=== PATIENT | female | born 1955 | race Caucasian/White ===

== ENCOUNTER → 2021-03-04 08:23 | Outpatient (CLI) | payer MEDICARE, SELFPAY ==
--- NOTE | ~2021-03-04 | MM_ITS ---
EXAMINATION: MM screening nathaly BI w monika HISTORY: Screening TECHNIQUE: Craniocaudal and mediolateral oblique 3-D tomosynthesis images were obtained and synthetic 2-D images were generated. CAD analysis was submitted and interpreted. COMPARISON: 11/07/2012 BREAST PARENCHYMAL COMPOSITION: There are scattered areas of fibroglandular density. FINDINGS: There is no evidence of suspicious mass, calcification, or architectural distortion to sugg est malignancy in either breast. There has been no suspicious interval change. IMPRESSION: 1. No mammographic evidence of malignancy. 2. Recommend routine screening mammography in one year. BI-RADS Category 1: Negative Reviewed, dictated and finalized at location A.
--- NOTE | ~2021-03-04 | DEXA_ITS ---
Bone Density Report Name: Stella Carroll Age: 65 Sex: Female Ethnicity: White Date of : 1955 Indication: postmenopausal; screening for osteoporosis; parental hip fracture; height loss; Referring Provider: José Hamlin Study: Bone densitometry was performed. Exam Date: March 04, 2021 Accession number: [id number] Bone Density: Region BMD T-score Z-score Classification AP Spine (L1-L4) 1.291 2.2 4.2 Normal Femoral Neck (Left) 0.671 -1.6 0.1 Osteopenia Total Hip (Left) 0.923 -0.2 1.2 Normal Femoral Neck (Right) 0.790 -0.5 1.1 Normal Total Hip (Right) 0.920 -0.2 1.2 Normal Total Hip Mean 0.922 -0.2 1.2 Normal World Health Organization criteria for BMD impression classify patients as: Normal (T-score at or above -1.0), Osteopenia (T-score between -1.0 and -2.5), or Osteoporosis (T-score at or below -2.5). 10-year Fracture Risk(1): Major Osteoporotic Fracture 16% Hip Fracture 1.7% Reported Risk Factors: [place] (), Neck BMD=0.671, BMI=34.7, parental fracture (1) FRAX(R) Version 3.08. Fracture probability calculated for an untreated patient. Fracture probability may be lower if the patient has received treatment. Clinical Information Provided by Patient: Parent has had a hip fracture Patient maximum height was 59.8 Menopause Age: 52 Onset of menses at age 9 Number of children 2 Impression: The patient has low bone mass, based on the Left Femoral Neck T-score. The patient has an estimated ten-year risk of hip fracture of 1.7% and an estimated ten-year risk of major fracture of 16%, based on the WHO FRAX algorithm. The patient has risk factors, including: parental hip fracture. Discussion: BONE DENSITY IS LOW AT ONE OR MORE SKELETAL SITES. This patient's lowest T-score is low at one or more skeletal sites. It meets the World Health Organization's (WHO) criteria for ?low bone mass? (T-score between -1.0 and -2.5). The patient's 10-year risk of fracture as calculated by FRAX is less than the threshold where pharmacological therapy is recommended by the National Osteoporosis Foundation (NOF). However, all treatment decisions require clinical judgment and consideration of individual patient factors, including patient preferences, comorbidities, previous drug use, risk factors not captured in the FRAX model (e.g., frailty, falls, vitamin D deficiency, increased bone turnover, interval significant decline in bone density) and possible under or overestimation of fracture risk by FRAX. The patient should follow a healthful lifestyle (good nutrition with adequate calcium and vitamin D, and appropriate weight-bearing exercise). Follow-Up: Consider repeating this study in 2 to 3 years to reassess this patient's status, or sooner if there is some new clinical indication. Reported by:
== END ==
PROVIDERS: PCP Family Medicine; Visit Provider Physician Assistant Medical
DX: Z12.31 Encounter for screening mammogram for malignant neoplasm of breast (principal); Z78.0 Asymptomatic menopausal state; M85.852 Other specified disorders of bone density and structure, left thigh
CPT/HCPCS: 77063; 77067; 77080

== ENCOUNTER 2022-11-14 14:40 | Inpatient (IN) | payer MEDICARE, SELFPAY ==
[2022-11-14] VITALS (36 sets, daily range): BP systolic 75–131; BP diastolic 48–100; PULSE 68–166; RESP 13–25; TEMP 36.6–36.7; O2SAT 94–100; BMI 34.6
--- NOTE | ~2022-11-14 | XR_ITS ---
EXAMINATION: XR chest 1V portable DATE: 11/16/2022 13:56 INDICATION: Shortness of breath. TECHNIQUE: A single frontal view of the chest was obtained. COMPARISON: Chest single view 11/15/2022 FINDINGS: There are airspace opacities in the lower lung zones. Eros B-lines are noted, consistent with mild pulmonary edema. There are small pleural effusions. No pneumothorax. The heart size is norm al. IMPRESSION: 1. Stable airspace opacities in the lower lung zones, consistent with atelectasis versus pneumonia. 2. Mild pulmonary edema. 3. Stable small pleural effusions. Reviewed, dictated and finalized at location A. IMPRESSION: 1. Stable airspace opacities in the lower lung zones, consistent with atelectas is versus pneumonia. 2. Mild pulmonary edema. 3. Stable small pleural effusions.
--- NOTE | ~2022-11-14 | XR_ITS ---
EXAMINATION: XR chest 1V portable INDICATION: Wheezing and shortness of breath TECHNIQUE: Portable AP chest at 2225 hours COMPARISON: 11/14/2022 FINDINGS: There are developing airspace opacities in the mid and lower lung zones. Small pleural effu sions are present. The heart size is normal. There is no pneumothorax. IMPRESSION: 1. Developing airspace opacities of the mid and lower lung zones, consistent with atelectasis versus pneumonia versus pulmonary edema. 2. Small pleural effusions. Reviewed, dictated and finalized at location F. IMPRESSION: 1. Developing airspace opacities of the mid and lower lung zones, consistent wi th atelectasis versus pneumonia versus pulmonary edema. 2. Small pleural effusions.
--- NOTE | ~2022-11-14 | XR_ITS ---
EXAMINATION: XR chest 1V portable 11/14/2022 15:30 INDICATION: Heart racing. Abnormal EKG. PROCEDURE: AP portable chest COMPARISON: No prior studies for comparison. FINDINGS: The lungs are clear. The cardiomediastinal silhouette is within normal limits. There are no pleural effusions. There is no pneumothorax suspected. IMPRESSION: 1: NO ACUTE CARDIOPULMONARY DISEASE. Reviewed, dictated and finalized at location B.
--- NOTE | 2022-11-14 14:46 | ECG_ITS ---
Measurements Intervals [place] Rate: 164 P: 86 MI: 100 QRS: 34 QRSD: 118 T: -50 QT: 285 QTc: 471 Interpretive Statements SUPRAVENTRICULAR TACHYCARDIA POSSIBLY ATRIAL FLUTTER BASELINE ARTIFACT LOW QRS VOLTAGE IN PRECORDIAL LEADS MODERATE INTRAVENTRICULAR CONDUCTION DELAY NONSPECIFIC ST ABNORMALITY ABNORMAL ECG NO PREVIOUS ECG AVAILABLE FOR COMPARISON Electronically Signed On 11-14-2022 18:25:56 CDT by Kurtis Abdalla M.D.
[2022-11-14] MEDS: SODIUM CHLORIDE 0.9% IV 1,000 ML 999 ML IV CONT (15:20)
[2022-11-14 15:32] LABS: Basophils Absolute Auto 0.1 K/mm3 (0.0-0.1); Basophils Percent Auto 1.2 % (0.2-1.2); Eosinophils Absolute Auto 0.1 K/mm3 (0-0.3); Eosinophils Percent Auto 0.7 % (0-4.4); Hematocrit 40.1 % (37.0-47.0); Hemoglobin 13.7 g/dL (12.0-15.0); Immature Granulocyte Absolute 0.03 K/mm3 (0.00-0.031); Immature Granulocyte Percent A 0.3 % (0-0.5); Lymphocytes Absolute Auto 2.82 K/mm3 (0.9-3.2); Lymphocytes Percent Auto 27.4 % (18.3-44.2); Mean Corpuscular HGB Conc 34.2 g/dl (32-36); Mean Corpuscular Hemoglobin 31.9 pg (26-34); Mean Corpuscular Volume 93.3 fl (80-100); Mean Platelet Volume 11.8 fl (7.4-10.4); Monocytes Absolute Auto 0.8 K/mm3 (0.1-0.6); Monocytes Percent Auto 7.5 % (2.6-8.5); Neutrophils Absolute Auto 6.5 K/mm3 (1.3-6.7); Neutrophils Percent Auto 62.9 % (45.5-73.1); Platelet Count Result 410 k/mm3 (150-375); Red Cell Distribution Width 14.1 % (11.5-14.5); White Blood Count 10.3 K/mm3 (4.5-10.0)
[2022-11-14 15:42] LABS: Prothrombin Time 12.5 Seconds (11.1-14.7)
[2022-11-14 15:46] LABS: Lactic Acid Reflex 1.3 mmol/L (0.7-2.0)
--- NOTE | 2022-11-14 15:47 | ED.ARRPALP ---
HPI - Arrhythmia/Palpitations General Chief Complaint: Arrhythmia/Palpitations Stated Complaint: ahrrythmia Time Seen by Provider: 11/14/22 14:58 Source: patient, RN notes reviewed and old records reviewed Mode of arrival: ambulatory Limitations: no limitations History of Present Illness HPI narrative: This is a 67 year old female who presents for evaluation of tachycardia. Patient was diagnosed with shingles to her left flank 2 weeks ago. She was started on medrol dose pack and famciclovir. She went for follow appointment today because she is having worsening pain from her shingles. Her rash is improving. She was found to be in atrial flutter with heart rate 160s in clinic so she was referred to ER. Patient denies chest pain, sob, dizziness, or heart racing recently. She reports over the past few years she has intermittent episodes of heart racing that resolve after a few minutes. Related Data Home Medications Medication Instructions Recorded Confirmed cholecalciferol (vitamin D3) 125 125 mcg PO DAILY 10/24/22 11/14/22 mcg (5,000 unit) capsule hydrochlorothiazide 25 mg tablet 25 mg PO DAILY 11/14/22 11/14/22 simvastatin 80 mg tablet 80 mg PO DAILY 11/14/22 11/14/22 Allergies Allergy/AdvReac Type Severity Reaction Status Date / Time No Known Allergies Allergy Verified 11/14/22 13:59 Review of Systems Constitutional: Constitutional: Denies weakness Cardiovascular: Cardiovascular: Denies syncope, Denies rapid heart rate, Denies irregular heart rhythm, Denies leg edema and Denies dyspnea Respiratory: Respiratory: Denies chest congestion, Denies hemoptysis, Denies excessive phlegm production and Denies dyspnea Gastrointestinal: Gastrointestinal: Denies abdominal pain, Denies hematochezia, Denies diarrhea and Denies vomiting Genitourinary: Genitourinary: Denies hematuria and Denies dysuria Musculoskeletal: Musculoskeletal: Denies joint swelling, Denies loss of height and Denies muscle weakness Integumentary/Breasts: Skin/Breast: Reports pruritus and Reports rash Neurologic: Denies syncope, Denies focal weakness and Denies weakness PMFSH Past Medical History Medical History Benign essential hypertension Breast cancer screening by mammogram Herpes zoster Mixed hyperlipidemia Obesity (BMI 30.0-34.9) Surgical History Surgical History H/O section X2 H/O tubal ligation History of cochlear implant Family History Family History Sibling Patient's sister is Mother Patient's mother is Other Family history of elevated blood lipids Family history of glaucoma Hypertension Social History Social History Social History: The patient is and lives with her . She has 2 children. She is retired from [employer]. She is a lifelong nonsmoker. She does not use any alcohol marijuana or illicit drugs. Code status full code Smoking status: Never smoker Alcohol intake: never Substance use: never Lack of Transportation: No Lack of Food: Never True Current Housing: I Have Housing Concerned About Future Housing: No Difficulty Paying Gas/Electric Bills: No Difficulty Paying for Meds: No Currently Unemployed: No Education: Decline to Answer Difficulty w/ Childcare or Family Care: No Spiritual care concerns: No Exam Narrative: GENERAL: Well-appearing, well-nourished, and in no acute distress. HEAD: Normocephalic, atraumatic EYES: PERRLA and EOMI, conjunctiva clear without discharge THROAT:Mucous membranes moist, Oropharynx normal without erythema, exudate, peritonsillar swelling or fluctuance NECK: Supple, without lymphadenopathy or mass RESPIRATORY: No respiratory distress, Airway patent, Respi
[2022-11-14 15:52] LABS: Alanine Aminotransferase 36 U/L (6-35); Albumin Level 4.2 g/dL (3.5-5.1); Alkaline Phosphatase 109 U/L (38-126); Aspartate Amino Transferase 33 U/L (14-36); Bilirubin,Total 0.8 mg/dL (0.2-1.3); Blood Urea Nitrogen 20 mg/dL (7-17); Calcium 9.8 mg/dL (8.4-10.2); Carbon Dioxide > 40 mmol/L (22-30); Chloride 90 mmol/L (98-107); Estimated CRCL calculation 51 ml/min; Estimated Glomerular Filt Rate > 60; Glucose 134 mg/dL (65-110); Magnesium 1.8 mg/dL (1.6-2.3); Sodium 138 mmol/L (137-145)
[2022-11-14 15:57] LABS: Troponin I < 0.012 ng/mL (0.000-0.034)
[2022-11-14] MEDS: dilTIAZem HCl INJ 25 MG/5 ML VIAL 10 MG IV PUSH (16:13)
[2022-11-14] MEDS: POTASSIUM CHLORIDE 20 MEQ TABLET 40 MEQ PO (16:14)
[2022-11-14] MEDS: MAGNESIUM SULF 2 GM/WATER 50ML 2 GM/50 ML BAG IVPB (16:23)
[2022-11-14] MEDS: dilTIAZem 100 MG/100 ML 100 MG/100 ML BAG 10 MG IV CONT (16:43)
[2022-11-14] MEDS: dilTIAZem HCl INJ 25 MG/5 ML VIAL IV PUSH (17:28)
[2022-11-14] MEDS: SODIUM CHLORIDE 0.9% IV 500 ML 999 ML IV CONT (17:41)
--- NOTE | 2022-11-14 19:09 | PC.NURSE ---
Pt arrives after having a high rate today at an Urgent Care. Pt states that she has been dealing with shingles and pain in across her abdomen and that is why she went to the Urgent Care. States that she was told she had a high heart rate and an abnormal EKG. Pt denied any headache. Pt denied feeling her heart racing or chest pain. Denies feeling SOB.
[2022-11-14] MEDS: KCL 20 MEQ/SW 100 ML 100 ML 50 MEQ IVPB (19:22)
--- NOTE | 2022-11-14 19:36 | PC.NURSE ---
GLADYS gave report to Carol Ann at 193.
--- NOTE | 2022-11-14 20:28 | ADMGEN ---
This patient, Stella Carroll, was admitted to IMU Room 211-01 at 2037. Patient/family oriented to hospital policies and general routines including ID bracelet, bed and alarms, visiting hours, pain management, procedures, bathroom and other care routines, personal items, smoking policy, room service/diet, and visiting hours. Information on how to activate the Rapid Response Team has been discussed. Patient/Family are encouraged to report perceived risks to care and to ask questions if they do not understand what they are told or what they should do.
--- NOTE | 2022-11-14 20:52 | PM.IMHP ---
H&P: HPI History of Present Illness Date/Time: 11/14/22 20:52 Chief Complaint: As arrhythmias/palpitations Narrative: This is a 67-year-old female patient who recently was diagnosed with shingles 2 weeks ago and was going to her primary care doctor evaluated for her shingles to see if they are getting worse or if they are clearing up. The patient had no other complaints. The patient was found to have tachycardia with heart rate in the 160s. The patient was found to be and supraventricular tachycardia possibly atrial flutter. The patient was then sent to the emergency room. The patient was given IV fluids and Cardizem IV. Her white count is 10.3. Platelets 410. Troponin is found to be nonreactive. Her TSH is within normal limits. Her potassium was found to be 3.0 and she was replaced with potassium supplement. The patient was also supplemented with magnesium. Patient's blood pressure is anywhere from 126/100 to 122/89. Patient stated she did not have any chest pain or palpitations. The patient has a cochlear implant and is hearing impaired. She does read lips however. She denies any chest pain or shortness of breath.. She denies any fever chills. She only complains of some mild headache and is requesting Tylenol. Cardiology has been consulted. Chest x-ray was read as no acute cardiopulmonary disease. The patient is being admitted to inpatient status on the date of service of 11/14/2022. Review of Systems Review of Systems: All systems reviewed & are unremarkable except as noted in HPI and below Constitutional: Constitutional: Reports as per HPI and Reports no additional constitutional complaints Eyes: Eyes: Reports as per HPI and Reports no additional eye complaints ENT: Reports system reviewed and no additional complaints, except as documented and Reports Normal hearing present Cardiovascular: Cardiovascular: Reports no additional cardiovascular complaints Respiratory: Respiratory: Reports no additional respiratory complaints and Reports no additional respiratory complaints Gastrointestinal: Gastrointestinal: Reports as per HPI and Reports no additional gastrointestinal complaints Musculoskeletal: Musculoskeletal: Reports no additional musculoskeletal complaints Integumentary/Breasts: Skin/Breast: Reports system reviewed and no additional complaints, except as docu and Reports as per HPI Neurologic: Reports system reviewed and no additional complaints, except as documented, Reports as per HPI and Reports Normal hearing present Psychiatric: Psychiatric: Reports no additional psychiatric complaints and Reports as per HPI Endocrine: Endocrine: Reports no additional endocrine complaints Hematologic/Lymphatic: Hematologic/Lymphatic: Reports no additional hematologic/lymphatic complaints Allergic/Immunologic: Allergic/Immunologic: Reports no additional allergic/immunologic complaints [facility] Past Medical History Medical History (Updated 11/14/22 @ 22:40 by Katie Sena NP) Benign essential hypertension Breast cancer screening by mammogram Herpes zoster Mixed hyperlipidemia Obesity (BMI 30.0-34.9) Surgical History Surgical History (Updated 11/14/22 @ 22:31 by Katie Sena NP) H/O section X2 H/O tubal ligation History of cochlear implant Family History Family History Sibling Patient's sister is Mother Patient's mother is Other Family history of elevated blood lipids Family history of glaucoma Hypertension Social History Social History (Updated 11/14/22 @ 22:32 by Katie Sena NP) Social History: The patient is and lives with her . She has 2 children. She is retired from [employer]. She is a lifelong nonsmoker. She does not use any alcohol marijuana or illicit drugs. Code status full code Smoking status: Never smoker Alcohol intake: never Substance u
[2022-11-14] MEDS: ENOXAPARIN 80 MG/0.8 ML SYRINGE 70 MG SUB-Q (21:37)
[2022-11-14] MEDS: dilTIAZem 100 MG/100 ML 100 MG/100 ML BAG 15 MG IV CONT (21:38)
[2022-11-14] MEDS: ACETAMINOPHEN 325 MG TABLET 650 MG PO (21:38)
[2022-11-14] MEDS: DIGOXIN INJ 250 MCG/ML 2 ML AMP (*BKC) IV PUSH (22:35)
[2022-11-15] VITALS (21 sets, daily range): BP systolic 106–169; BP diastolic 57–116; PULSE 66–141; RESP 16–20; TEMP 36.3–37; O2SAT 90–100
--- NOTE | 2022-11-15 | ECHO_ITS ---
Patient Info Name: Stella Carroll Age: 67 years : 1955 Gender: Female Ht: 60 in Wt: 177 lbs BSA: 1.88 m2 HR: 67 bpm BP: 120 / 60 mmHg Heart Rhythm: Sinus Rhythm Exam Date: 11/15/2022 9:38 AM Exam Location: [facility] Patient Status: Inpatient Admit Date: 11/14/2022 Staff Ordering Physician: Katie Sena NP Drywall Mechanic: Patrice Benitez RDCS, RT Attending Provider: Maria Ines Hogue MD Referring Physician: Nathen SEVERINO; Exam Type: CA echo doppler color flow Study Info Indications I48.1 - Persistent atrial fibrillation Complete two-dimensional, color flow and Doppler transthoracic echocardiogram is performed. Strain analysis performed. Summary 1. Complete two-dimensional, color flow and Doppler transthoracic echocardiogram is performed. 2. Left ventricular chamber dimension is normal. 3. Left ventricular systolic function is normal, estimated at 60-65%. 4. There is mildly increased left ventricular wall thickness. 5. Right ventricular systolic function is normal. 6. Left atrial chamber dimension is mildly enlarged. 7. The mitral valve annulus is mildly calcified. 8. There is moderate to severe mitral valve regurgitation. 9. There is mild tricuspid valve regurgitation. 10. There is mild-moderate aortic atherosclerosis. Left Ventricle Left ventricular chamber dimension is normal. Left ventricular systolic function is normal, estimated at 60-65%. There is mildly increased left ventricular wall thickness. Global longitudinal strain is abnormal at -13 %. Right Ventricle Right ventricular chamber dimension is normal. Right ventricular systolic function is normal. Left Atria Left atrial chamber dimension is mildly enlarged. Right Atria Right atrial chamber dimension is normal. Aortic Valve The aortic valve is not well visualized. There is no aortic valve stenosis. There is no aortic valve regurgitation. There is mild aortic valve calcification. Pulmonic Valve The pulmonic valve is not well visualized. Mitral Valve There is moderate to severe mitral valve regurgitation. The mitral valve annulus is mildly calcified. Tricuspid Valve There is mild tricuspid valve regurgitation. Pericardium/Pleural There is no pericardial effusion. Inferior Vena Cava Normal inferior vena cava with <50% collapse upon inspiration consistent with elevated right atrial pressure, 8 mmHg. Aorta The aortic root size at the sinus of Valsalva is normal. There is mild-moderate aortic atherosclerosis. Left Ventricular Outflow Tract Name Value Normal LVOT 2D LVOT Diameter 1.9 cm LVOT Doppler LVOT Peak Gradient 4 mmHg LVOT Mean Gradient 2 mmHg LVOT VTI 18 cm LVOT VTI/AV VTI Ratio 0.7 LVOT Stroke Volume 51 ml LVOT CO 3.2 l/min LVOT CI 1.7 l/min/m2 Mitral Valve Name
[2022-11-15] MEDS: SODIUM CHLORIDE 0.9% IV 500 ML IV CONT (01:43)
[2022-11-15] MEDS: dilTIAZem 100 MG/100 ML 100 MG/100 ML BAG 15 MG IV CONT ×2 (05:24→12:07)
[2022-11-15 05:40] LABS: Basophils Absolute Auto 0.1 K/mm3 (0.0-0.1); Basophils Percent Auto 1.1 % (0.2-1.2); Eosinophils Absolute Auto 0.2 K/mm3 (0-0.3); Eosinophils Percent Auto 1.9 % (0-4.4); Hematocrit 35.1 % (37.0-47.0); Hemoglobin 11.8 g/dL (12.0-15.0); Immature Granulocyte Absolute 0.04 K/mm3 (0.00-0.031); Immature Granulocyte Percent A 0.4 % (0-0.5); Lymphocytes Absolute Auto 3.24 K/mm3 (0.9-3.2); Lymphocytes Percent Auto 31.1 % (18.3-44.2); Mean Corpuscular HGB Conc 33.6 g/dl (32-36); Mean Corpuscular Hemoglobin 32.2 pg (26-34); Mean Corpuscular Volume 95.9 fl (80-100); Mean Platelet Volume 11.4 fl (7.4-10.4); Monocytes Absolute Auto 0.6 K/mm3 (0.1-0.6); Monocytes Percent Auto 6.1 % (2.6-8.5); Neutrophils Absolute Auto 6.2 K/mm3 (1.3-6.7); Neutrophils Percent Auto 59.4 % (45.5-73.1); Platelet Count Result 345 k/mm3 (150-375); Red Blood Count 3.66 M/mm3 (4.2-5.4); Red Cell Distribution Width 14.3 % (11.5-14.5); White Blood Count 10.4 K/mm3 (4.5-10.0)
[2022-11-15 05:55] LABS: Alanine Aminotransferase 32 U/L (6-35); Albumin Level 3.5 g/dL (3.5-5.1); Alkaline Phosphatase 103 U/L (38-126); Anion Gap 2 mmol/L (8-16); Aspartate Amino Transferase 23 U/L (14-36); Bilirubin,Total 0.6 mg/dL (0.2-1.3); Blood Urea Nitrogen 16 mg/dL (7-17); Calcium 8.6 mg/dL (8.4-10.2); Carbon Dioxide 34 mmol/L (22-30); Chloride 101 mmol/L (98-107); Estimated CRCL calculation 61 ml/min; Estimated Glomerular Filt Rate > 60; Glucose 159 mg/dL (65-110); Lactic Acid Reflex 1.9 mmol/L (0.7-2.0); Potassium 3.1 mmol/L (3.4-5.0); Sodium 137 mmol/L (137-145)
[2022-11-15] MEDS: ACETAMINOPHEN 325 MG TABLET 650 MG PO ×2 (10:23→22:09)
[2022-11-15] MEDS: ENOXAPARIN 80 MG/0.8 ML SYRINGE 70 MG SUB-Q (10:25)
[2022-11-15] MEDS: CHOLECALCIFEROL 1,000 UNITS TABLET 5000 UNITS PO (10:25)
[2022-11-15] MEDS: POTASSIUM CHLORIDE 20 MEQ TABLET.ER PO (10:25)
[2022-11-15] MEDS: PANTOPRAZOLE 40 MG TABLET PO (10:26)
[2022-11-15] MEDS: PROPRANOLOL HCL 60 MG CAPSULE CR 120 MG PO (10:27)
[2022-11-15] MEDS: SIMVASTATIN 20 MG TABLET 80 MG PO (10:27)
[2022-11-15] MEDS: TRIAMCINOLONE ACET 0.1% CREAM 15 GM TUBE 1 APPLIC TOPICAL (10:27)
--- NOTE | 2022-11-15 13:51 | PM.IMPN ---
Progress Note: A&P Assessment and Plan (1) Atrial fibrillation: Code(s): I48.91 - Unspecified atrial fibrillation Status: Acute Assessment and Plan: This is new onset. Cardiology has been consulted And echos been ordered The patient is currently on a Cardizem drip. The patient was started on subcu Lovenox. Patient's Jesús Vasc score is 3. Her stroke risk is approximately 3.2% per year in greater than 90,000 patient's. 11/15/2022 interval history: 67-year-old female with shingle was seen by her primary care was found to have atrial fibrillation with [facility] center emergency depart started the patient on diltiazem drip rate is trending down anticoagulated with Lovenox, will be seen by personal injury litigation paralegal and further recommendation to follow, continue to have a pain with shingles will place the patient Lidoderm patches, will continue to monitor and further recommendation to follow. (2) Herpes zoster: Code(s): B02.9 - Zoster without complications Status: Acute Assessment and Plan: Patient's shingles appear to be healing. Patient can still received a shingles shot outpatient once her shingles are healed. (3) Mixed hyperlipidemia: Code(s): E78.2 - Mixed hyperlipidemia Status: Acute Assessment and Plan: Continue with Zocor (4) Benign essential hypertension: Code(s): I10 - Essential (primary) hypertension Status: Acute Assessment and Plan: Continue with propranolol which she also uses for headache Hold hydrochlorothiazide for tonight as we had to replace her potassium and her magnesium (5) Migraine, unspecified, not intractable, without status migrainosus: Code(s): G43.909 - Migraine, unspecified, not intractable, without status migrainosus Status: Acute Assessment and Plan: Continue with Tylenol and prophylactic propanolol (6) Hypokalemia: Code(s): E87.6 - Hypokalemia Status: Acute Assessment and Plan: Patient had magnesium and potassium replaced today. Please replace as necessary. I am holding hydrochlorothiazide for tonight. Subjective Date/time seen: 11/15/22 13:51 As arrhythmias/palpitations HPI-Narrative: This is a 67-year-old female patient who recently was diagnosed with shingles 2 weeks ago and was going to her primary care doctor evaluated for her shingles to see if they are getting worse or if they are clearing up.? The patient had no other complaints.? The patient was found to have tachycardia with heart rate in the 160s.? The patient was found to be and supraventricular tachycardia possibly atrial flutter.? The patient was then sent to the emergency room.? The patient was given IV fluids and Cardizem IV.? Her white count is 10.3.? Platelets 410.? Troponin is found to be nonreactive.? Her TSH is within normal limits.? Her potassium was found to be 3.0 and she was replaced with potassium supplement.? The patient was also supplemented with magnesium.? Patient's blood pressure is anywhere from 126/100 to 122/89.? Patient stated she did not have any chest pain or palpitations.? The patient has a cochlear implant and is hearing impaired.? She does read lips however.? She denies any chest pain or shortness of breath..? She denies any fever chills.? She only complains of some mild headache and is requesting Tylenol.? Cardiology has been consulted.? Chest x-ray was read as no acute cardiopulmonary disease.? The patient is being admitted to inpatient status on the date of service of 11/14/2022. 11/15/2022 interval history: 67-year-old female with shingle was seen by her primary care was found to have atrial fibrillation with [facility] center emergency depart started the patient on diltiazem drip rate is trending down anticoagulated with Lovenox, will be seen by personal injury litigation paralegal and further recommendation to follow, continue to have a pain with shingles will place the patient Lidoderm patches, will continue to monitor and further recommendation to [place]
[2022-11-15] MEDS: ALPRAZolam (*CRX) 0.25 MG TABLET PO (16:28)
--- NOTE | 2022-11-15 16:36 | PM.CNCAR ---
Assessment and Plan Assessment and plan (1) Atrial flutter with rapid ventricular response: Code(s): I48.92 - Unspecified atrial flutter Status: Acute Plan New diagnosis of atrial flutter. Has converted to sinus rhythm. TSH normal. Discussed the diagnosis of atrial flutter with the patient, implications of atrial flutter, indication for anticoagulation, risks vs benefits of anticoagulation. Patient agreeable to anticoagulation. Will stop IV Diltiazem and switch to PO. Stop therapeutic lovenox and start Eliquis. Echocardiogram. Outpatient cardiology follow-up. History of Present Illness History of Present Illness Consult date/time: 11/15/22 16:36 Requesting physician: Katie Sena NP Consult reason: Other (Atrial flutter) Reason For Visit: atrial flutter with RVR Narrative: We are consulted for atrial flutter with RVR. This is a 67-year-old female with a history of hypertension, hyperlipidemia, shingles diagnosed 2 weeks ago who was found with tachycardia at her primary care provider's office. Patient sent to the ED for further evaluation. EKG showed atrial flutter with RVR. Patient given IV fluids and started on IV Diltiazem drip. Patient started on therapeutic lovenox. Patient has since converted to sinus rhythm. Patient with no prior cardiac history. Denies chest pain, palpitations, shortness of breath or other cardiac symptoms. Of note, patient is hard of hearing and needs to read lips to have conversation. Review of Systems Review of Systems: All systems reviewed & are unremarkable except as noted in HPI and below (HPI) PMFSH Past Medical History Medical History Benign essential hypertension Breast cancer screening by mammogram Herpes zoster Mixed hyperlipidemia Obesity (BMI 30.0-34.9) Surgical History Surgical History H/O section X2 H/O tubal ligation History of cochlear implant Family History Family History Sibling Patient's sister is Mother Patient's mother is Other Family history of elevated blood lipids Family history of glaucoma Hypertension Social History Social History Social History: The patient is and lives with her . She has 2 children. She is retired from [employer]. She is a lifelong nonsmoker. She does not use any alcohol marijuana or illicit drugs. Code status full code Smoking status: Never smoker Alcohol intake: never Substance use: never Lack of Transportation: No Lack of Food: Never True Current Housing: I Have Housing Concerned About Future Housing: No Difficulty Paying Gas/Electric Bills: No Difficulty Paying for Meds: No Currently Unemployed: No Education: Decline to Answer Difficulty w/ Childcare or Family Care: No Spiritual care concerns: No Meds Home Medications and Allergies Home Medications Medication Instructions Recorded Confirmed Type cholecalciferol (vitamin D3) 125 125 mcg PO DAILY 10/24/22 11/14/22 History mcg (5,000 unit) capsule omeprazole 20 mg capsule,delayed 20 mg PO DAILY #90 caps 10/24/22 11/14/22 Rx release propranolol 120 mg capsule,24 120 mg PO DAILY #30 caps 10/24/22 11/14/22 Rx hr,extended release triamcinolone acetonide 0.1 % 1 applic topical TID #454 grams 11/02/22 11/14/22 Rx topical cream hydrochlorothiazide 25 mg tablet 25 mg PO DAILY 11/14/22 11/14/22 History imipramine HCl 50 mg tablet 50 mg PO DAILY #30 tabs 11/14/22 11/14/22 Rx simvastatin 80 mg tablet 80 mg PO DAILY 11/14/22 11/14/22 History Allergies Allergy/AdvReac Type Severity Reaction Status Date / Time No Known Allergies Allergy Verified 11/14/22 13:59 Vital Signs Vital Signs - 24 hr 11/14/22 16:43 11/14/22 16:38
[2022-11-15] MEDS: APIXABAN 5 MG TABLET PO (20:36)
[2022-11-15] MEDS: FUROSEMIDE INJ 40 MG/4 ML VIAL 20 MG IV PUSH (22:26)
[2022-11-15] MEDS: LEVALBUTEROL NEB 1.25 MG/3 ML INHALATION (23:05)
[2022-11-16] VITALS (18 sets, daily range): BP systolic 116–172; BP diastolic 67–113; PULSE 74–139; RESP 18–24; TEMP 36.3–36.8; O2SAT 95–100
--- NOTE | 2022-11-16 02:21 | PM.EVENT ---
Event Note Event Note Event Note: Nursing staff. Me to tell me the patient was having hypoxia with exertion. The patient had gotten up to go to the bedside commode earlier in the evening and became hypoxic. She was placed on oxygen. She received 20 of IV Lasix. Her potassium was low the prior morning in the started her on 20 mEq of potassium daily. The physician housing assistant property manager had been called earlier in the night the patient had been given 20 mg of IV Lasix. However despite Lasix patient only had 200 mL out and was having increasing shortness of breath with exertion. Subsequently I ordered another 20 mg of IV Lasix after I review the x-ray that was done earlier in the evening that demonstrated bilateral pulmonary edema and pleural effusions. I have also added orders for strict I&O's and daily weights. I told nursing staff that they could apply pure wick if they that the patient was becoming so distressed that she could not exert herself to get to the bedside commode. Patient was not retaining urine postvoid residual was only 40 mL..
[2022-11-16] MEDS: ALPRAZolam (*CRX) 0.25 MG TABLET PO ×2 (02:26→16:38)
[2022-11-16] MEDS: FUROSEMIDE INJ 40 MG/4 ML VIAL 20 MG IV PUSH (02:26)
[2022-11-16] MEDS: POTASSIUM CHLORIDE 20 MEQ TABLET 40 MEQ PO (02:27)
[2022-11-16 04:53] LABS: Hemoglobin 12.9 g/dL (12.0-15.0); Mean Corpuscular HGB Conc 32.3 g/dl (32-36); Mean Corpuscular Hemoglobin 32.2 pg (26-34); Mean Corpuscular Volume 99.8 fl (80-100); Mean Platelet Volume 11.3 fl (7.4-10.4); Platelet Count Result 306 k/mm3 (150-375); Red Blood Count 4.01 M/mm3 (4.2-5.4); Red Cell Distribution Width 14.2 % (11.5-14.5); White Blood Count 15.6 K/mm3 (4.5-10.0)
[2022-11-16 05:05] LABS: Anion Gap 9 mmol/L (8-16); Blood Urea Nitrogen 16 mg/dL (7-17); Calcium 9.2 mg/dL (8.4-10.2); Carbon Dioxide 26 mmol/L (22-30); Chloride 98 mmol/L (98-107); Estimated CRCL calculation 61 ml/min; Estimated Glomerular Filt Rate > 60; Glucose 135 mg/dL (65-110); Magnesium 1.6 mg/dL (1.6-2.3); Potassium 4.1 mmol/L (3.4-5.0); Sodium 133 mmol/L (137-145)
[2022-11-16] MEDS: POTASSIUM CHLORIDE 20 MEQ TABLET.ER PO (08:55)
[2022-11-16] MEDS: SIMVASTATIN 20 MG TABLET 80 MG PO (08:56)
[2022-11-16] MEDS: CHOLECALCIFEROL 1,000 UNITS TABLET 5000 UNITS PO (08:56)
[2022-11-16] MEDS: APIXABAN 5 MG TABLET PO ×2 (08:56→20:19)
[2022-11-16] MEDS: PROPRANOLOL HCL 60 MG CAPSULE CR 120 MG PO (08:56)
[2022-11-16] MEDS: PANTOPRAZOLE 40 MG TABLET PO (08:57)
[2022-11-16] MEDS: TRIAMCINOLONE ACET 0.1% CREAM 15 GM TUBE 1 APPLIC TOPICAL ×3 (08:58→16:39)
[2022-11-16] MEDS: ACETAMINOPHEN 325 MG TABLET 650 MG PO ×2 (09:15→16:37)
--- NOTE | 2022-11-16 13:28 | PM.PNCARD ---
Progress Note: A&P Assessment and Plan (1) Atrial flutter with rapid ventricular response: Code(s): I48.92 - Unspecified atrial flutter Status: Acute Assessment and Plan: New diagnosis of atrial flutter. Has converted to sinus rhythm. Continue p.o. diltiazem and anticoagulation with Eliquis. (2) Mitral regurgitation: Code(s): I34.0 - Nonrheumatic mitral (valve) insufficiency Status: Acute Assessment and Plan: She has moderate to severe MR. Outpatient follow-up. (3) (HFpEF) heart failure with preserved ejection fraction: Code(s): I50.30 - Unspecified diastolic (congestive) heart failure Status: Acute Assessment and Plan: congestive heart failure secondary to her mitral valve disease. Will give 60 mg IV push Lasix now and schedule IV Lasix for tomorrow. Closely monitor intake and output. Daily weights. CHF counseling. Ultimately, will need referral to Cardiac surgery for mitral valve repair /replacement. daily BMP. Subjective Date/time seen: 11/16/22 13:28 Cardiology follow up for atrial fibrillation, MR Interval history: She had an episode of acute hypoxia last night. She was given IV lasix and had improvement in her symptoms but this afternoon she is complaining of shortness of breath again. She is comfortable and able to speak in complete sentences but she is mildly tachypneic. Review of Systems Review of Systems: All systems reviewed & are unremarkable except as noted in HPI and below (HPI) Exam Const: General: comfortable and no acute distress HENMT: Mouth: Yes moist mucous membranes Eyes: General: appearance normal, both eyes and all related structures Sclera: sclerae normal Neck: Neck: supple Resp: Effort & Inspection: normal respiratory effort and tachypneic Auscultation: not clear to auscultation bilaterally and rales Cardio: Rate: regular rate Rhythm: regular rhythm Heart sounds: Murmur heart sound present GI: GI Palp: Yes Ascites present Skin: General skin exam: normal color Neuro: Speech: normal speech Psych: Mental Status: mental status grossly normal Affect: normal affect Objective Data Vital Signs Vital Signs: Vital Signs - 24 hr 11/15/22 14:00 11/15/22 16:00 11/15/22 16:00 Temperature Pulse Rate 68 68 104 H Respiratory Rate 18 Blood Pressure Pulse Oximetry 96 Oxygen Delivery Room Air Oxygen Flow Rate 11/15/22 18:00 11/15/22 16:00 11/15/22 20:27 Temperature 37.0 C Pulse Rate 78 84 76 Respiratory Rate 20 16 Blood Pressure 169/78 H Pulse Oximetry 98 92 Oxygen Delivery Nasal Cannula Oxygen Flow Rate 1 11/15/22 20:45 11/15/22 23:07 11/15/22 20:00 Temperature 36.3 C L Pulse Rate 76 83 Respiratory Rate 20 20 Blood Pressure 158/116 H Pulse Oximetry 90 93 Oxygen Delivery Nasal Cannula Oxygen Flow Rate 2 11/15/22 23:15 11/15/22 23:39 11/15/22 20:00 Temperature 36.3 C L Pulse Rate 85 70 85 Respiratory Rate 20 20 Blood Pressure 144/83 H Pulse Oximetry 100 Oxygen Delivery Oxygen Flow Rate 11/15/22 22:00 11/16/22 00:00 11/16/22 00:00 Temperature Pulse Rate 72 78 Respiratory Rate Blood Pressure Pulse Oximetry 100 Oxygen Delivery Nasal Cannula Oxygen Flow Rate 2 11/16/22 04:00 11/16/22 02:00 11/16/22 04:35 Temperature 36.3 C L Pulse Rate 83 83 Respiratory Rate 21 H Blood Pressure 116/91 H Pulse Oximetry 100 99 Oxygen Delivery Nasal Cannula Oxygen Flow Rate 2 11/16/22 04:00 11/16/22 06:00 11/16/22 08:00 Temperature 36.6 C Pulse Rate 74 75 92 Respiratory Rate 24 H Blood Pressure 172/72 H Pulse Oximetry 100 Oxygen Delivery Oxygen Flow Rate 11/16/22 08:56 11/16/22 08:00 11/16/22 08:00 Temperature Pulse Rate 84 87 Respiratory Rate Blood Pressure Pulse Oximetry 100 Oxygen Delivery Nasal Cannula Oxygen Flow Rate 2 11/16/22 10:00 11/16/22 12:00 Temperature
[2022-11-16] MEDS: FUROSEMIDE INJ 100 MG/10 ML VIAL 60 MG IV PUSH (13:45)
--- NOTE | 2022-11-16 16:52 | PM.IMPN ---
Progress Note: A&P Assessment and Plan (1) Atrial fibrillation: Code(s): I48.91 - Unspecified atrial fibrillation Status: Acute Assessment and Plan: This is new onset. Cardiology has been consulted And echos been ordered The patient is currently on a Cardizem drip. The patient was started on subcu Lovenox. Patient's Jesús Vasc score is 3. Her stroke risk is approximately 3.2% per year in greater than 90,000 patient's. 11/16/2022 interval history: 67-year-old female with shingle was seen by her primary care was found to have atrial fibrillation with RVR sent to emergency depart started the patient on diltiazem drip rate is trending down anticoagulated with Lovenox, patient converted to sinus rhythm, seen by accounts receivable bookkeeper switched to oral diltiazem and eliquis, also patient developed shortness of breath suspect CHF patient given lasix this did help, ECHO showed preserve LV function with EF of 65%, There is moderate to severe mitral valve regurgitation. will be seen accounts receivable bookkeeper and further recommendation to follow, continue to have a pain with shingles will place the patient Lidoderm patches, will continue to monitor and further recommendation to follow. patient family is present in the room, (2) Herpes zoster: Code(s): B02.9 - Zoster without complications Status: Acute Assessment and Plan: Patient's shingles appear to be healing. Patient can still received a shingles shot outpatient once her shingles are healed. (3) Mixed hyperlipidemia: Code(s): E78.2 - Mixed hyperlipidemia Status: Acute Assessment and Plan: Continue with Zocor (4) Benign essential hypertension: Code(s): I10 - Essential (primary) hypertension Status: Acute Assessment and Plan: Continue with propranolol which she also uses for headache Hold hydrochlorothiazide for tonight as we had to replace her potassium and her magnesium (5) Migraine, unspecified, not intractable, without status migrainosus: Code(s): G43.909 - Migraine, unspecified, not intractable, without status migrainosus Status: Acute Assessment and Plan: Continue with Tylenol and prophylactic propanolol (6) Hypokalemia: Code(s): E87.6 - Hypokalemia Status: Acute Assessment and Plan: Patient had magnesium and potassium replaced today. Please replace as necessary. I am holding hydrochlorothiazide for tonight. Subjective Date/time seen: 11/16/22 16:52 11/16/2022 interval history: 67-year-old female with shingle was seen by her primary care was found to have atrial fibrillation with RVR sent to emergency depart started the patient on diltiazem drip rate is trending down anticoagulated with Lovenox, patient converted to sinus rhythm, seen by accounts receivable bookkeeper switched to oral diltiazem and eliquis, also patient developed shortness of breath suspect CHF patient given lasix this did help, ECHO showed preserve LV function with EF of 65%, There is moderate to severe mitral valve regurgitation. will be seen accounts receivable bookkeeper and further recommendation to follow, continue to have a pain with shingles will place the patient Lidoderm patches, will continue to monitor and further recommendation to follow. patient family is present in the room, Review of Systems Review of Systems: All systems reviewed & are unremarkable except as noted in HPI and below Exam Narrative: Morbidly obese Patient is comfortable, NAD HEENT: eyes are clear and none icteric LUNGS: Normal respiratory effort ABD: Distended Lower extremities: no edema SKIN: nonjaundiced Neuro: grossly intact. Objective Data Vital Signs Vital Signs: Vital Signs - 24 hr 11/15/22 18:00 11/15/22 20:27 11/15/22 20:45 Temperature 97.3 F L Pulse Rate 78 76 76 Respiratory Rate 16 20 Blood Pressure 158/116 H Pulse Oximetry 92 90 Oxygen Delivery Nasal Cannula Oxygen Flow Rate 1 11/15/22 23:07 11/15/22 20:00 11/15/22
--- NOTE | 2022-11-16 22:42 | ECG_ITS ---
Measurements Intervals [place] Rate: 136 P: [place]: 0 QRS: 65 QRSD: 87 T: 9 QT: 309 QTc: 466 Interpretive Statements ATRIAL FLUTTER/TACHYCARDIA WITH RAPID VENTRICULAR RESPONSE MODERATE ST DEPRESSION [0.05+ mV ST DEPRESSION] INTERPRETATION BASED ON A DEFAULT AGE OF 40 YEARS COMPARED TO ECG 11/14/2022 14:47:49 NO SIGNIFICANT CHANGES Electronically Signed On 11-17-2022 22:12:03 CDT by Shannon Galarza M.D.
[2022-11-16] MEDS: dilTIAZem HCl INJ 25 MG/5 ML VIAL 10 MG IV PUSH (23:50)
[2022-11-16] MEDS: dilTIAZem 100 MG/100 ML 100 MG/100 ML BAG 10 MG IV CONT (23:51)
[2022-11-17] VITALS (21 sets, daily range): BP systolic 106–125; BP diastolic 61–86; PULSE 58–143; RESP 18–26; TEMP 36.1–36.7; O2SAT 93–100
[2022-11-17] MEDS: DIGOXIN INJ 250 MCG/ML 2 ML AMP (*BKC) IV PUSH (02:45)
[2022-11-17] MEDS: ALPRAZolam (*CRX) 0.25 MG TABLET PO ×2 (02:45→21:41)
[2022-11-17 05:43] LABS: Hematocrit 37.4 % (37.0-47.0); Hemoglobin 12.7 g/dL (12.0-15.0); Mean Corpuscular Hemoglobin 31.6 pg (26-34); Mean Platelet Volume 11.7 fl (7.4-10.4); Platelet Count Result 329 k/mm3 (150-375); Red Blood Count 4.02 M/mm3 (4.2-5.4); Red Cell Distribution Width 14.1 % (11.5-14.5); White Blood Count 13.8 K/mm3 (4.5-10.0)
[2022-11-17 06:07] LABS: Anion Gap 8 mmol/L (8-16); Blood Urea Nitrogen 12 mg/dL (7-17); Calcium 9.3 mg/dL (8.4-10.2); Carbon Dioxide 35 mmol/L (22-30); Chloride 93 mmol/L (98-107); Estimated CRCL calculation 62 ml/min; Estimated Glomerular Filt Rate > 60; Glucose 133 mg/dL (65-110); Magnesium 1.6 mg/dL (1.6-2.3); Potassium 3.6 mmol/L (3.4-5.0); Sodium 136 mmol/L (137-145)
[2022-11-17] MEDS: dilTIAZem 100 MG/100 ML 100 MG/100 ML BAG 15 MG IV CONT ×2 (06:23→12:20)
[2022-11-17] MEDS: ACETAMINOPHEN 325 MG TABLET 650 MG PO (09:47)
[2022-11-17] MEDS: FUROSEMIDE INJ 40 MG/4 ML VIAL IV PUSH (09:48)
[2022-11-17] MEDS: APIXABAN 5 MG TABLET PO ×2 (09:48→21:35)
[2022-11-17] MEDS: CHOLECALCIFEROL 1,000 UNITS TABLET 5000 UNITS PO (09:48)
[2022-11-17] MEDS: POTASSIUM CHLORIDE 20 MEQ TABLET.ER PO (09:48)
[2022-11-17] MEDS: PANTOPRAZOLE 40 MG TABLET PO (09:48)
[2022-11-17] MEDS: PROPRANOLOL HCL 60 MG CAPSULE CR 120 MG PO (09:49)
[2022-11-17] MEDS: TRIAMCINOLONE ACET 0.1% CREAM 15 GM TUBE 1 APPLIC TOPICAL ×3 (09:50→17:08)
--- NOTE | 2022-11-17 13:54 | PM.IMPN ---
Progress Note: A&P Assessment and Plan (1) Atrial fibrillation: Code(s): I48.91 - Unspecified atrial fibrillation Status: Acute Assessment and Plan: This is new onset. Cardiology has been consulted And echos been ordered The patient is currently on a Cardizem drip. The patient was started on subcu Lovenox. Patient's Jesús Vasc score is 3. Her stroke risk is approximately 3.2% per year in greater than 90,000 patient's. 11/17/2022 interval history: 67-year-old female with shingle was seen by her primary care was found to have atrial fibrillation with RVR sent to emergency depart started the patient on diltiazem drip rate was trending down anticoagulated with Lovenox, patient converted to sinus rhythm, seen by pari mutuel clerk switched to oral diltiazem and eliquis, however again patient went into AFib with RVR and was started on diltiazem drip patient remains in RVR patient be seen by pari mutuel clerk and further recommendation to follow, also patient developed shortness of breath suspect CHF patient given lasix this did help, ECHO showed preserve LV function with EF of 65%, There is moderate to severe mitral valve regurgitation. will be seen pari mutuel clerk, may need surgical consultation and further recommendation to follow, continue to have a pain with shingles will place the patient Lidoderm patches, will continue to monitor and further recommendation to follow. patient family is present in the room, (2) Herpes zoster: Code(s): B02.9 - Zoster without complications Status: Acute Assessment and Plan: Patient's shingles appear to be healing. Patient can still received a shingles shot outpatient once her shingles are healed. (3) Mixed hyperlipidemia: Code(s): E78.2 - Mixed hyperlipidemia Status: Acute Assessment and Plan: Continue with Zocor (4) Benign essential hypertension: Code(s): I10 - Essential (primary) hypertension Status: Acute Assessment and Plan: Continue with propranolol which she also uses for headache Hold hydrochlorothiazide for tonight as we had to replace her potassium and her magnesium (5) Migraine, unspecified, not intractable, without status migrainosus: Code(s): G43.909 - Migraine, unspecified, not intractable, without status migrainosus Status: Acute Assessment and Plan: Continue with Tylenol and prophylactic propanolol (6) Hypokalemia: Code(s): E87.6 - Hypokalemia Status: Acute Assessment and Plan: Patient had magnesium and potassium replaced today. Please replace as necessary. I am holding hydrochlorothiazide for tonight. Subjective Date/time seen: 11/17/22 13:54 This is new onset. Cardiology has been consulted And echos been ordered The patient is currently on a Cardizem drip. The patient was started on subcu Lovenox. Patient's Jesús Vasc score is 3. Her stroke risk is approximately 3.2% per year in greater than 90,000 patient's. 11/17/2022 interval history: 67-year-old female with shingle was seen by her primary care was found to have atrial fibrillation with RVR sent to emergency depart started the patient on diltiazem drip rate was trending down anticoagulated with Lovenox, patient converted to sinus rhythm, seen by pari mutuel clerk switched to oral diltiazem and eliquis, however again patient went into AFib with RVR and was started on diltiazem drip patient remains in RVR patient be seen by pari mutuel clerk and further recommendation to follow, also patient developed shortness of breath suspect CHF patient given lasix this did help, ECHO showed preserve LV function with EF of 65%, There is moderate to severe mitral valve regurgitation. will be seen pari mutuel clerk, may need surgical consultation and further recommendation to follow, continue to have a pain with shingles will place the patient Lidoderm patches, will continue to monitor and further recommendation to follow. patient family is present in the room,
--- NOTE | 2022-11-17 14:50 | ECG_ITS ---
Measurements Intervals [place] Rate: 26 P: TN: 0 QRS: 62 QRSD: 89 T: 20 QT: 394 QTc: 373 Interpretive Statements RHYTHM INDETERMINATE. MAY BE JUNCTIONAL RHYTHM. SOME P-WAVES MAY BE PRESENT AND NON CONDUCTED; MAY BE SEVERE SINUS BRADYCARDIA WITH ACCELERATED JUNCTIONAL RHYTHM. COMPARED TO ECG 11/16/2022 22:52:28 THE PATIENT IS NO LONGER IN ATRIAL FLUTTER. Electronically Signed On 11-18-2022 9:14:58 CDT by Shannon Galarza M.D.
--- NOTE | 2022-11-17 15:09 | PM.PNCARD ---
Progress Note: A&P Assessment and Plan (1) Atrial flutter with rapid ventricular response: Code(s): I48.92 - Unspecified atrial flutter Status: Acute Assessment and Plan: New diagnosis of atrial flutter. Has been paroxysmal. --Continue anticoagulation with Eliquis. --will try metoprolol --Also add sotalol since she's had recurrence. --Check QT intervals regularly --some mild degree of tachy-paty syndrome as she went into presumably a junctional rhythm when she converted but she was on high-dose diltiazem at the time. (2) Mitral regurgitation: Code(s): I34.0 - Nonrheumatic mitral (valve) insufficiency Status: Acute Assessment and Plan: She has moderate to severe MR. Outpatient follow-up. Murmur is unimpressive. --We will need to re-evaluate the degree of mitral regurgitation when she is out of heart failure. If still severe, consider surgical repair. (3) (HFpEF) heart failure with preserved ejection fraction: Code(s): I50.30 - Unspecified diastolic (congestive) heart failure Status: Acute Assessment and Plan: Congestive heart failure secondary to her mitral valve disease. --Cont IV Lasix, perhaps switch to p.o. tomorrow. --Closely monitor intake and output. Daily weights. CHF counseling. -- daily BMP. Subjective Date/time seen: Follow-up for new onset atrial flutter RVR, new onset diastolic CHF, and moderate to severe mitral regurgitation. 11/15/2022 echo showed EF 60-65% and moderate to severe mitral regurgitation. 11/17/22 15:09 Patient went back into atrial flutter RVR last night and she was started back on the diltiazem drip was increased to 15 milligrams/hour. She is also given 1 dose of digoxin 0.25 mg IV push. Today she has converted to heart rhythm in the 50s. Unclear if this is a junctional rhythm but P waves are not well seen. Can not exclude complete heart block, though not likely. Later sinus function returned and her heart rate was in the 70s. She is feeling well. Review of Systems Review of Systems: Denies shortness of breath, chest pain, abdominal pain, bleeding. Hard of hearing and wears a cochlear implant. Exam Const: General: cooperative, healthy appearing and comfortable; No confusion Orientation/consciousness: oriented to person, patient oriented x3 and No confusion HENMT: Mouth: Yes moist mucous membranes Other: Hard of hearing, wears a cochlear implant. Eyes: General: appearance normal, both eyes and all related structures Neck: Neck: supple and no JVD Resp: Effort & Inspection: normal respiratory effort Auscultation: rales (Rales left lower lobe) Cardio: Rate: regular rate Rhythm: regular rhythm Heart sounds: Murmur heart sound present Other: 1-2/6 SUZAN apex GI: Inspection: normal to inspection GI Palp: No abdominal tenderness Neuro: General: oriented to person, patient oriented x3 and No confusion Extrem: Right lower extremity: no edema Left lower extremity: no edema Psych: Appearance: grossly normal Mental Status: mental status grossly normal Objective Data Vital Signs Vital Signs: Vital Signs - 24 hr 11/16/22 16:00 11/16/22 16:00 11/16/22 18:00 Temperature Pulse Rate 78 78 Respiratory Rate Blood Pressure Pulse Oximetry 100 Oxygen Delivery Room Air Oxygen Flow Rate 11/16/22 16:00 11/16/22 21:40 11/16/22 20:00 Temperature 98.2 F 97.8 F Pulse Rate 79 75 Respiratory Rate 24 H 20 Blood Pressure 151/95 H 148/113 H Pulse Oximetry 98 97 97 Oxygen Delivery Room Air Oxygen Flow Rate 11/16/22 23:31 11/16/22 23:51 11/16/22 20:00 Temperature 97.8 F Pulse Rate 138 H 139 H 81 Respiratory Rate 20 Blood Pressure 133/81 Pulse Oximetry 96 Oxygen Delivery Oxygen Flow Rate 11/16/22 22:00 11/17/22 00:00 11/17/22 00:00 Temperature Pulse Rate 76 140 H Respiratory Rate Blood Pressure Pulse Oximetry 96 Oxygen Delivery Agustin
--- NOTE | 2022-11-17 15:19 | PC.NURSE ---
Patient noted to be in a sinus rhythm at 1445. Cardizem paused, EKG obtained, Dr. Galarza notified. Will continue to monitor closely.
[2022-11-17] MEDS: METOPROLOL TARTRATE 25 MG TABLET PO (21:35)
[2022-11-17] MEDS: SOTALOL HCL 80 MG TABLET PO (21:35)
--- NOTE | 2022-11-17 21:40 | ECG_ITS ---
Measurements Intervals [place] Rate: 71 P: 61 [place]: 148 QRS: 35 QRSD: 86 T: 40 QT: 396 QTc: 432 Interpretive Statements SINUS RHYTHM INTERPRETATION BASED ON A DEFAULT AGE OF 40 YEARS COMPARED TO ECG 11/17/2022 15:01:16 SINUS RHYTHM NOW PRESENT ACCELERATED JUNCTIONAL RHYTHM NO LONGER PRESENT Electronically Signed On 11-18-2022 9:22:31 CDT by Shannon Galarza M.D.
[2022-11-17] MEDS: SALINE LOCK FLUSH 10 ML IV PUSH (23:19)
[2022-11-18] VITALS (15 sets, daily range): BP systolic 115–136; BP diastolic 52–73; PULSE 67–140; RESP 18–20; TEMP 36.1–36.9; O2SAT 92–100
[2022-11-18 05:13] LABS: Hematocrit 32.6 % (37.0-47.0); Hemoglobin 10.9 g/dL (12.0-15.0); Mean Corpuscular HGB Conc 33.4 g/dl (32-36); Mean Corpuscular Hemoglobin 32.1 pg (26-34); Mean Corpuscular Volume 95.9 fl (80-100); Mean Platelet Volume 11.2 fl (7.4-10.4); Platelet Count Result 304 k/mm3 (150-375); Red Cell Distribution Width 14.6 % (11.5-14.5); White Blood Count 14.9 K/mm3 (4.5-10.0)
[2022-11-18 05:33] LABS: Anion Gap 3 mmol/L (8-16); Blood Urea Nitrogen 18 mg/dL (7-17); Carbon Dioxide 38 mmol/L (22-30); Chloride 95 mmol/L (98-107); Estimated CRCL calculation 55 ml/min; Estimated Glomerular Filt Rate > 60; Glucose 135 mg/dL (65-110); Magnesium 1.6 mg/dL (1.6-2.3); Potassium 3.8 mmol/L (3.4-5.0); Sodium 136 mmol/L (137-145)
[2022-11-18] MEDS: SALINE LOCK FLUSH 10 ML IV PUSH ×3 (06:03→20:27)
[2022-11-18] MEDS: PANTOPRAZOLE 40 MG TABLET PO (08:54)
[2022-11-18] MEDS: ACETAMINOPHEN 325 MG TABLET 650 MG PO ×2 (08:54→17:35)
[2022-11-18] MEDS: CHOLECALCIFEROL 1,000 UNITS TABLET 5000 UNITS PO (08:54)
[2022-11-18] MEDS: FUROSEMIDE INJ 40 MG/4 ML VIAL IV PUSH (08:54)
[2022-11-18] MEDS: POTASSIUM CHLORIDE 20 MEQ TABLET.ER PO (08:54)
[2022-11-18] MEDS: PROPRANOLOL HCL 60 MG CAPSULE CR 120 MG PO (08:54)
[2022-11-18] MEDS: TRIAMCINOLONE ACET 0.1% CREAM 15 GM TUBE 1 APPLIC TOPICAL ×3 (08:55→17:30)
[2022-11-18] MEDS: METOPROLOL TARTRATE 25 MG TABLET PO (08:55)
[2022-11-18] MEDS: APIXABAN 5 MG TABLET PO ×2 (08:55→20:26)
[2022-11-18] MEDS: SOTALOL HCL 80 MG TABLET PO ×2 (08:55→20:26)
--- NOTE | 2022-11-18 10:00 | ECG_ITS ---
Measurements Intervals [place] Rate: 122 P: ND: 0 QRS: 62 QRSD: 92 T: -15 QT: 321 QTc: 459 Interpretive Statements ATRIAL FIBRILLATION WITH RAPID VENTRICULAR RESPONSE NONSPECIFIC ST & T-WAVE ABNORMALITY COMPARED TO ECG 11/17/2022 23:55:28 ATRIAL FIBRILLATION NOW PRESENT T-WAVE ABNORMALITY NOW PRESENT Electronically Signed On 11-18-2022 19:20:34 CDT by Shannon Galarza M.D.
--- NOTE | 2022-11-18 11:59 | ECG_ITS ---
Measurements Intervals [place] Rate: 67 P: -26 UT: 126 QRS: 57 QRSD: 85 T: 16 QT: 412 QTc: 437 Interpretive Statements SINUS RHYTHM COMPARED TO ECG 11/18/2022 10:00:34 THE ATRIAL FIBRILLATION HAS RESOLVED. Electronically Signed On 11-18-2022 19:21:45 CDT by Shannon Galarza M.D.
--- NOTE | 2022-11-18 12:40 | PM.IMPN ---
Progress Note: A&P Assessment and Plan (1) Atrial fibrillation: Code(s): I48.91 - Unspecified atrial fibrillation Status: Acute Assessment and Plan: This is new onset. Cardiology has been consulted And echos been ordered The patient is currently on a Cardizem drip. The patient was started on subcu Lovenox. Patient's Jesús Vasc score is 3. Her stroke risk is approximately 3.2% per year in greater than 90,000 patient's. 11/18/2022 interval history: 67-year-old female with shingle was seen by her primary care was found to have atrial fibrillation with RVR sent to emergency depart started the patient on diltiazem drip rate was trending down anticoagulated with Lovenox, patient converted to sinus rhythm, seen by hair machine operator switched to oral diltiazem and eliquis, however again on 11/17 patient went into AFib with RVR and was started on diltiazem drip patient remains in RVR patient will be seen by hair machine operator may need cardioversion and further recommendation to follow, also patient developed shortness of breath suspect CHF patient given lasix this did help, ECHO showed preserve LV function with EF of 65%, There is moderate to severe mitral valve regurgitation. will be seen hair machine operator, may need surgical consultation and further recommendation to follow, continue to have a pain with shingles will place the patient Lidoderm patches, will continue to monitor and further recommendation to follow. patient family is present in the room, (2) Herpes zoster: Code(s): B02.9 - Zoster without complications Status: Acute Assessment and Plan: Patient's shingles appear to be healing. Patient can still received a shingles shot outpatient once her shingles are healed. (3) Mixed hyperlipidemia: Code(s): E78.2 - Mixed hyperlipidemia Status: Acute Assessment and Plan: Continue with Zocor (4) Benign essential hypertension: Code(s): I10 - Essential (primary) hypertension Status: Acute Assessment and Plan: Continue with propranolol which she also uses for headache Hold hydrochlorothiazide for tonight as we had to replace her potassium and her magnesium (5) Migraine, unspecified, not intractable, without status migrainosus: Code(s): G43.909 - Migraine, unspecified, not intractable, without status migrainosus Status: Acute Assessment and Plan: Continue with Tylenol and prophylactic propanolol (6) Hypokalemia: Code(s): E87.6 - Hypokalemia Status: Acute Assessment and Plan: Patient had magnesium and potassium replaced today. Please replace as necessary. I am holding hydrochlorothiazide for tonight. Subjective Date/time seen: 11/18/22 12:40 This is new onset. Cardiology has been consulted And echos been ordered The patient is currently on a Cardizem drip. The patient was started on subcu Lovenox. Patient's Jesús Vasc score is 3. Her stroke risk is approximately 3.2% per year in greater than 90,000 patient's. 11/18/2022 interval history: 67-year-old female with shingle was seen by her primary care was found to have atrial fibrillation with RVR sent to emergency depart started the patient on diltiazem drip rate was trending down anticoagulated with Lovenox, patient converted to sinus rhythm, seen by hair machine operator switched to oral diltiazem and eliquis, however again on 11/17 patient went into AFib with RVR and was started on diltiazem drip patient remains in RVR patient will be seen by hair machine operator may need cardioversion and further recommendation to follow, also patient developed shortness of breath suspect CHF patient given lasix this did help, ECHO showed preserve LV function with EF of 65%, There is moderate to severe mitral valve regurgitation. will be seen hair machine operator, may need surgical consultation and further recommendation to follow, continue to have a pain with shingles will place the patient Lidoderm patches, will continue to monitor and fu
--- NOTE | 2022-11-18 15:56 | PM.PNCARD ---
Progress Note: A&P Assessment and Plan (1) Atrial flutter with rapid ventricular response: Code(s): I48.92 - Unspecified atrial flutter Status: Acute Assessment and Plan: New diagnosis of atrial flutter. Has been paroxysmal. --Continue anticoagulation with Eliquis. --Added sotalol since she's had recurrence. First dose 11/17/2022 pm --Check QT intervals regularly --some mild degree of tachy-paty syndrome as she went into proobable a junctional rhythm when she converted but she was on high-dose diltiazem at the time. Still may have some junctional rhythm. Will DC metoprolol. (2) Mitral regurgitation: Code(s): I34.0 - Nonrheumatic mitral (valve) insufficiency Status: Acute Assessment and Plan: She has moderate to severe MR. Outpatient follow-up. Murmur is unimpressive. --We will need to re-evaluate the degree of mitral regurgitation when she is out of heart failure and in NSR more (with Echo, RADHA, or MRI). If still severe, consider surgical repair. (3) (HFpEF) heart failure with preserved ejection fraction: Code(s): I50.30 - Unspecified diastolic (congestive) heart failure Status: Acute Assessment and Plan: Congestive heart failure secondary to her mitral valve disease. --still has rales. Continue iV Lasix, perhaps switch to p.o. tomorrow. --Closely monitor intake and output. Daily weights. CHF counseling. -- daily BMP. Subjective Date/time seen: Follow-up for new onset atrial flutter RVR, new onset diastolic CHF, and moderate to severe mitral regurgitation.? 11/15/2022 echo showed EF 60-65% and moderate to severe mitral regurgitation.? 11/17/22? 15:09? Patient went back into atrial flutter RVR last night and she was started back on the diltiazem drip was increased to 15 milligrams/hour.? She is also given 1 dose of digoxin 0.25 mg IV push.? Today she has converted to heart rhythm in the 50s.? Unclear if this is a junctional rhythm but P waves are not well seen.? Can not exclude complete heart block, though not likely.? Later sinus function returned and her heart rate was in the 70s.? She is feeling well. Started sotalol and metoprolol. 11/18/22 15:56 feeling well, not out of bed, no shortness of breath, did not notice any palpitations today. Telemetry showed that she was in a flutter RVR for a few hours this morning but has converted back to sinus rhythm. 11/18/2022 EKG at 12:04 p.m.: NSR rate 67, short OK interval cannot rule out a junctional rhythm, QTC 437 milliseconds, acceptable. Review of Systems Review of Systems: No shortness of breath, chest pain, palpitations. Feels tired. No abdominal complaints. Exam Const: General: cooperative, healthy appearing and comfortable; No confusion Orientation/consciousness: oriented to person, patient oriented x3 and No confusion Other: at the bedside HENMT: Mouth: Yes moist mucous membranes Other: Hard of hearing, wears a cochlear implant. Eyes: General: appearance normal, both eyes and all related structures Neck: Neck: supple and no JVD Resp: Effort & Inspection: normal respiratory effort Auscultation: rales (Rales left lower lobe) Cardio: Rate: regular rate Rhythm: regular rhythm Heart sounds: Murmur heart sound present Other: 1-2/6 SUZAN apex GI: Inspection: normal to inspection GI Palp: No Tenderness to palpation present (GI) Skin: General skin exam: normal color and no rashes or lesions noted Neuro: General: oriented to person, patient oriented x3 and No confusion Extrem: Right lower extremity: no edema Left lower extremity: no edema Psych: Appearance: grossly normal Mental Status: mental status grossly normal Objective Data Vital Signs Vital Signs: Vital Signs - 24 hr 11/17/22 16:00 11/17/22 16:00 11/17/22 17:57 Temperature 97.0 F L Pulse Rate 58 L 59 L 65 Respiratory Rate 24 H Blood Pressure 123/67 Pulse Oximetry 99 Oxygen Delivery Oxygen Flow
--- NOTE | 2022-11-18 22:41 | ECG_ITS ---
Measurements Intervals [place] Rate: 65 P: 66 MT: 131 QRS: 56 QRSD: 101 T: 49 QT: 440 QTc: 460 Interpretive Statements SINUS RHYTHM POSSIBLE LEFT ATRIAL ENLARGEMENT [-0.1mV P WAVE IN V1/V2] BORDERLINE ECG COMPARED TO ECG 11/18/2022 12:04:33 SINUS RHYTHM REPLACES AN ECTOPIC ATRIAL RHYTHM Electronically Signed On 11-19-2022 10:38:06 CDT by Tio Villavicencio M.D.
[2022-11-19] VITALS (14 sets, daily range): BP systolic 135–149; BP diastolic 69–107; PULSE 65–150; RESP 18–20; TEMP 36.4–36.6; O2SAT 94–98
[2022-11-19 06:01] LABS: Mean Corpuscular HGB Conc 33.3 g/dl (32-36); Mean Corpuscular Hemoglobin 31.9 pg (26-34); Mean Corpuscular Volume 95.7 fl (80-100); Mean Platelet Volume 11.7 fl (7.4-10.4); Platelet Count Result 343 k/mm3 (150-375); Red Blood Count 3.45 M/mm3 (4.2-5.4); Red Cell Distribution Width 14.3 % (11.5-14.5); White Blood Count 11.9 K/mm3 (4.5-10.0)
[2022-11-19 06:11] LABS: Blood Urea Nitrogen 17 mg/dL (7-17); Carbon Dioxide > 40 mmol/L (22-30); Chloride 96 mmol/L (98-107); Estimated CRCL calculation 55 ml/min; Estimated Glomerular Filt Rate > 60; Glucose 129 mg/dL (65-110); Magnesium 1.6 mg/dL (1.6-2.3); Potassium 3.4 mmol/L (3.4-5.0); Sodium 138 mmol/L (137-145)
[2022-11-19] MEDS: MAGNESIUM OXIDE 400 MG TABLET PO (10:47)
[2022-11-19] MEDS: APIXABAN 5 MG TABLET PO ×2 (10:47→20:15)
[2022-11-19] MEDS: POTASSIUM CHLORIDE 20 MEQ TABLET 40 MEQ PO (10:47)
[2022-11-19] MEDS: CHOLECALCIFEROL 1,000 UNITS TABLET 5000 UNITS PO (10:47)
[2022-11-19] MEDS: PROPRANOLOL HCL 60 MG CAPSULE CR 120 MG PO (10:48)
[2022-11-19] MEDS: PANTOPRAZOLE 40 MG TABLET PO (10:48)
[2022-11-19] MEDS: SOTALOL HCL 80 MG TABLET PO ×2 (10:48→20:15)
[2022-11-19] MEDS: FUROSEMIDE INJ 40 MG/4 ML VIAL IV PUSH (10:49)
[2022-11-19] MEDS: TRIAMCINOLONE ACET 0.1% CREAM 15 GM TUBE 1 APPLIC TOPICAL ×3 (10:49→17:37)
[2022-11-19] MEDS: POTASSIUM CHLORIDE 20 MEQ TABLET.ER PO (10:49)
[2022-11-19] MEDS: SALINE LOCK FLUSH 10 ML IV PUSH ×3 (10:52→20:18)
--- NOTE | 2022-11-19 11:45 | ECG_ITS ---
Measurements Intervals [place] Rate: 138 P: RI: 0 QRS: 48 QRSD: 81 T: -18 QT: 288 QTc: 438 Interpretive Statements SUSPECT ATYPICAL ATRIAL FLUTTER WITH RAPID VENTRICULAR RESPONSE NONSPECIFIC ST & T-WAVE ABNORMALITY COMPARED TO ECG 11/18/2022 22:49:32 ATRIAL FLUTTER NOW PRESENT T-WAVE ABNORMALITY NOW PRESENT Electronically Signed On 11-20-2022 6:54:17 CDT by Tio Villavicencio M.D.
--- NOTE | 2022-11-19 12:52 | PM.PNCARD ---
Progress Note: A&P Assessment and Plan (1) Atrial flutter with rapid ventricular response: Code(s): I48.92 - Unspecified atrial flutter Status: Acute Assessment and Plan: New diagnosis of atrial flutter. Has been paroxysmal. --Continue anticoagulation with Eliquis. --Added sotalol since she's had recurrence. First dose 11/17/2022 pm --Check QT intervals regularly. Stable thus far. --some mild degree of tachy-paty syndrome as she went into probably a junctional rhythm when she converted but she was on high-dose diltiazem at the time. Still may have some junctional rhythm. Will DC metoprolol. -- She did have another recurrence of atrial flutter with RVR earlier this afternoon. She was asymptomatic. She has converted back to sinus rhythm at this point. Continue current sotalol dose. (2) Mitral regurgitation: Code(s): I34.0 - Nonrheumatic mitral (valve) insufficiency Status: Acute Assessment and Plan: She has moderate to severe MR. Outpatient follow-up. Murmur is unimpressive. --We will need to re-evaluate the degree of mitral regurgitation when she is out of heart failure and in NSR more (with Echo, RADHA, or MRI). If still severe, consider surgical repair. (3) (HFpEF) heart failure with preserved ejection fraction: Code(s): I50.30 - Unspecified diastolic (congestive) heart failure Status: Acute Assessment and Plan: Congestive heart failure secondary to her mitral valve disease. -- Will shift to p.o. furosemide today. --Closely monitor intake and output. Daily weights. CHF counseling. -- daily BMP. Subjective Date/time seen: 11/19/22 12:52 Cardiology follow up for atrial flutter, MR, CHF feeling better today. She denies any shortness of breath, palpitations, chest. Her main complaint is pain from her shingles lesions. Review of Systems Review of Systems: All systems reviewed & are unremarkable except as noted in HPI and below (HPI) Neurologic: Denies confusion Psychiatric: Psychiatric: Denies confusion Exam Const: General: cooperative, healthy appearing, comfortable and no acute distress; No confusion Orientation/consciousness: oriented to person, patient oriented x3 and No confusion HENMT: Mouth: Yes moist mucous membranes Other: Hard of hearing, wears a cochlear implant. Eyes: General: appearance normal, both eyes and all related structures Sclera: sclerae normal Neck: Neck: supple and no JVD Resp: Effort & Inspection: normal respiratory effort Auscultation: not clear to auscultation bilaterally and crackles Cardio: Rate: regular rate Rhythm: regular rhythm Heart sounds: Murmur heart sound present Other: 1-2/6 SUZAN apex GI: Inspection: normal to inspection Skin: General skin exam: normal color and no rashes or lesions noted Neuro: General: oriented to person, patient oriented x3 and No confusion Speech: normal speech Extrem: Right lower extremity: no edema Left lower extremity: no edema Psych: Appearance: grossly normal Mental Status: mental status grossly normal Affect: normal affect Objective Data Vital Signs Vital Signs: Vital Signs - 24 hr 11/18/22 14:00 11/18/22 16:00 11/18/22 16:00 Temperature Pulse Rate 72 72 Respiratory Rate Blood Pressure Pulse Oximetry Oxygen Delivery Room Air 11/18/22 16:00 11/18/22 18:00 11/18/22 20:26 Temperature 36.4 C Pulse Rate 70 69 73 Respiratory Rate 20 Blood Pressure 117/60 Pulse Oximetry 94 Oxygen Delivery 11/18/22 20:00 11/18/22 20:00 11/18/22 20:00 Temperature 36.5 C Pulse Rate 68 69 Respiratory Rate 18 Blood Pressure 117/60 Pulse Oximetry 98 Oxygen Delivery Room Air 11/18/22 23:41 11/19/22 00:00 11/18/22 22:00 Temperature 36.6 C Pulse Rate 67 70 Respiratory Rate 18 Blood Pressure 115/58 L Pulse Oximetry 95 Oxygen Delivery Room Air 11/19/22 00:00 11/19/22 02:00 11/19/22 04:00 Temperat
--- NOTE | 2022-11-19 16:50 | PM.IMPN ---
Progress Note: A&P Assessment and Plan (1) Atrial fibrillation: Code(s): I48.91 - Unspecified atrial fibrillation Status: Acute Assessment and Plan: This is new onset. Cardiology has been consulted And echos been ordered The patient is currently on a Cardizem drip. The patient was started on subcu Lovenox. Patient's Jesús Vasc score is 3. Her stroke risk is approximately 3.2% per year in greater than 90,000 patient's. 11/19/2022 interval history: 67-year-old female with shingle was seen by her primary care was found to have atrial fibrillation with RVR sent to emergency depart started the patient on diltiazem drip rate was trending down anticoagulated with Lovenox, patient converted to sinus rhythm, seen by hollow tile partition erector switched to oral diltiazem and eliquis, however again on 11/17 patient went into AFib with RVR and was started on diltiazem drip patient remains in RVR patient was seen by hollow tile partition erector started the patient on sotolol, today patient converted back to sinus, will monitor, also patient developed shortness of breath suspect CHF patient given lasix this did help, ECHO showed preserve LV function with EF of 65%, There is moderate to severe mitral valve regurgitation. will be seen hollow tile partition erector, may need surgical consultation and further recommendation to follow, continue to have a pain with shingles will place the patient Lidoderm patches, will continue to monitor and further recommendation to follow. patient family is present in the room, (2) Herpes zoster: Code(s): B02.9 - Zoster without complications Status: Acute Assessment and Plan: Patient's shingles appear to be healing. Patient can still received a shingles shot outpatient once her shingles are healed. (3) Mixed hyperlipidemia: Code(s): E78.2 - Mixed hyperlipidemia Status: Acute Assessment and Plan: Continue with Zocor (4) Benign essential hypertension: Code(s): I10 - Essential (primary) hypertension Status: Acute Assessment and Plan: Continue with propranolol which she also uses for headache Hold hydrochlorothiazide for tonight as we had to replace her potassium and her magnesium (5) Migraine, unspecified, not intractable, without status migrainosus: Code(s): G43.909 - Migraine, unspecified, not intractable, without status migrainosus Status: Acute Assessment and Plan: Continue with Tylenol and prophylactic propanolol (6) Hypokalemia: Code(s): E87.6 - Hypokalemia Status: Acute Assessment and Plan: Patient had magnesium and potassium replaced today. Please replace as necessary. I am holding hydrochlorothiazide for tonight. Subjective Date/time seen: 11/19/22 16:50 This is new onset. Cardiology has been consulted And echos been ordered The patient is currently on a Cardizem drip. The patient was started on subcu Lovenox. Patient's Jesús Vasc score is 3. Her stroke risk is approximately 3.2% per year in greater than 90,000 patient's. 11/19/2022 interval history: 67-year-old female with shingle was seen by her primary care was found to have atrial fibrillation with RVR sent to emergency depart started the patient on diltiazem drip rate was trending down anticoagulated with Lovenox, patient converted to sinus rhythm, seen by hollow tile partition erector switched to oral diltiazem and eliquis, however again on 11/17 patient went into AFib with RVR and was started on diltiazem drip patient remains in RVR patient was seen by hollow tile partition erector started the patient on sotolol, today patient converted back to sinus, will monitor, also patient developed shortness of breath suspect CHF patient given lasix this did help, ECHO showed preserve LV function with EF of 65%, There is moderate to severe mitral valve regurgitation. will be seen hollow tile partition erector, may need surgical consultation and further recommendation to follow, continue to have a pain with shingles will place the patient Lidoderm
[2022-11-19] MEDS: FUROSEMIDE 40 MG TABLET PO (17:36)
[2022-11-19] MEDS: ALPRAZolam (*CRX) 0.25 MG TABLET PO (20:18)
--- NOTE | 2022-11-19 22:47 | ECG_ITS ---
Measurements Intervals [place] Rate: 72 P: -28 VA: 128 QRS: 45 QRSD: 85 T: 18 QT: 420 QTc: 460 Interpretive Statements ECTOPIC/NON SINUS ATRIAL RHYTHM ABNORMAL RHYTHM ECG COMPARED TO ECG 11/19/2022 11:54:08 ECTOPIC ATRIAL RHYTHM REPLACES ATYPICAL ATRIAL FLUTTER Electronically Signed On 11-20-2022 7:10:36 CDT by Tio Villavicencio M.D.
[2022-11-20] VITALS (9 sets, daily range): BP systolic 119–140; BP diastolic 53–70; PULSE 69–75; RESP 20–22; TEMP 36.5–36.8; O2SAT 97
[2022-11-20] MEDS: SALINE LOCK FLUSH 10 ML IV PUSH ×2 (04:39→12:37)
[2022-11-20] MEDS: ACETAMINOPHEN 325 MG TABLET 650 MG PO (04:39)
[2022-11-20 05:11] LABS: Hematocrit 34.8 % (37.0-47.0); Hemoglobin 12.1 g/dL (12.0-15.0); Mean Corpuscular HGB Conc 34.8 g/dl (32-36); Mean Corpuscular Hemoglobin 32.7 pg (26-34); Mean Corpuscular Volume 94.1 fl (80-100); Mean Platelet Volume 10.9 fl (7.4-10.4); Platelet Count Result 370 k/mm3 (150-375); Red Cell Distribution Width 14.2 % (11.5-14.5); White Blood Count 11.9 K/mm3 (4.5-10.0)
[2022-11-20 05:25] LABS: Blood Urea Nitrogen 15 mg/dL (7-17); Calcium 9.2 mg/dL (8.4-10.2); Carbon Dioxide > 40 mmol/L (22-30); Chloride 94 mmol/L (98-107); Estimated CRCL calculation 55 ml/min; Estimated Glomerular Filt Rate > 60; Glucose 113 mg/dL (65-110); Magnesium 1.6 mg/dL (1.6-2.3); Potassium 3.3 mmol/L (3.4-5.0); Sodium 139 mmol/L (137-145)
[2022-11-20] MEDS: POTASSIUM CHLORIDE 20 MEQ TABLET PO (10:14)
[2022-11-20] MEDS: PROPRANOLOL HCL 60 MG CAPSULE CR 120 MG PO (10:14)
[2022-11-20] MEDS: FUROSEMIDE 40 MG TABLET PO (10:15)
[2022-11-20] MEDS: PANTOPRAZOLE 40 MG TABLET PO (10:15)
[2022-11-20] MEDS: APIXABAN 5 MG TABLET PO (10:15)
[2022-11-20] MEDS: MAGNESIUM OXIDE 400 MG TABLET PO (10:15)
[2022-11-20] MEDS: CHOLECALCIFEROL 1,000 UNITS TABLET 5000 UNITS PO (10:15)
[2022-11-20] MEDS: TRIAMCINOLONE ACET 0.1% CREAM 15 GM TUBE 1 APPLIC TOPICAL ×2 (10:15→12:37)
[2022-11-20] MEDS: POTASSIUM CHLORIDE 20 MEQ TABLET.ER PO (10:15)
[2022-11-20] MEDS: SOTALOL HCL 80 MG TABLET PO (10:15)
--- NOTE | 2022-11-20 12:34 | ECG_ITS ---
Measurements Intervals [place] Rate: 73 P: -32 ND: 123 QRS: 49 QRSD: 82 T: 22 QT: 400 QTc: 441 Interpretive Statements SINUS RHYTHM COMPARED TO ECG 11/19/2022 22:51:23 SINUS RHYTHM NOW PRESENT Electronically Signed On 11-20-2022 18:01:19 CDT by Belinda Smith M.D.
--- NOTE | 2022-11-20 15:01 | PM.DS ---
DS: Admitting Diagnosis Discharge Date 11/19/2022 Admitting Diagnosis As arrhythmias/palpitations DS: Discharge Diagnosis Discharge Diagnosis (1) Atrial fibrillation: Code(s): I48.91 - Unspecified atrial fibrillation Status: Acute Assessment and Plan: This is new onset. Cardiology has been consulted And echos been ordered The patient is currently on a Cardizem drip. The patient was started on subcu Lovenox. Patient's Jesús Vasc score is 3. Her stroke risk is approximately 3.2% per year in greater than 90,000 patient's. 11/19/2022 interval history: 67-year-old female with shingle was seen by her primary care was found to have atrial fibrillation with RVR sent to emergency depart started the patient on diltiazem drip rate was trending down anticoagulated with Lovenox, patient converted to sinus rhythm, seen by licensed prosthetist/orthotist switched to oral diltiazem and eliquis, however again on 11/17 patient went into AFib with RVR and was started on diltiazem drip patient remains in RVR patient was seen by licensed prosthetist/orthotist started the patient on sotolol, today patient converted back to sinus, will monitor, also patient developed shortness of breath suspect CHF patient given lasix this did help, ECHO showed preserve LV function with EF of 65%, There is moderate to severe mitral valve regurgitation. will be seen licensed prosthetist/orthotist, may need surgical consultation and further recommendation to follow, continue to have a pain with shingles will place the patient Lidoderm patches, will continue to monitor and further recommendation to follow. patient family is present in the room, (2) Herpes zoster: Code(s): B02.9 - Zoster without complications Status: Acute Assessment and Plan: Patient's shingles appear to be healing. Patient can still received a shingles shot outpatient once her shingles are healed. (3) Mixed hyperlipidemia: Code(s): E78.2 - Mixed hyperlipidemia Status: Acute Assessment and Plan: Continue with Zocor (4) Benign essential hypertension: Code(s): I10 - Essential (primary) hypertension Status: Acute Assessment and Plan: Continue with propranolol which she also uses for headache Hold hydrochlorothiazide for tonight as we had to replace her potassium and her magnesium (5) Migraine, unspecified, not intractable, without status migrainosus: Code(s): G43.909 - Migraine, unspecified, not intractable, without status migrainosus Status: Acute Assessment and Plan: Continue with Tylenol and prophylactic propanolol (6) Hypokalemia: Code(s): E87.6 - Hypokalemia Status: Acute Assessment and Plan: Patient had magnesium and potassium replaced today. Please replace as necessary. I am holding hydrochlorothiazide for tonight. DS: Summary Hospital Course Reason for hospitalization: As arrhythmias/palpitations Narrative: This is a 67-year-old female patient who recently was diagnosed with shingles 2 weeks ago and was going to her primary care doctor evaluated for her shingles to see if they are getting worse or if they are clearing up.? The patient had no other complaints.? The patient was found to have tachycardia with heart rate in the 160s.? The patient was found to be and supraventricular tachycardia possibly atrial flutter.? The patient was then sent to the emergency room.? The patient was given IV fluids and Cardizem IV.? Her white count is 10.3.? Platelets 410.? Troponin is found to be nonreactive.? Her TSH is within normal limits.? Her potassium was found to be 3.0 and she was replaced with potassium supplement.? The patient was also supplemented with magnesium.? Patient's blood pressure is anywhere from 126/100 to 122/89.? Patient stated she did not have any chest pain or palpitations.? The patient has a cochlear implant and is hearing impaired.? She does read lips however.? She denies any chest pain or shortness of breath..? She denies any fever ch
== END 2022-11-20 15:53 | disposition home or self-care (01) | DRG 309 ==
LOC: ANHED 15:15 → ANHIMU 18:30
PROVIDERS: Nurse Practitioner; Admitting Provider Family Medicine; Emergency Provider General Practice; PCP Family Medicine; Visit Provider Family Medicine
DX: I48.91 Unspecified atrial fibrillation (principal); I50.30 Unspecified diastolic (congestive) heart failure; I48.92 Unspecified atrial flutter; I34.0 Nonrheumatic mitral (valve) insufficiency; B02.9 Zoster without complications; E78.2 Mixed hyperlipidemia; E87.6 Hypokalemia; G43.909 Migraine, unspecified, not intractable, without status migrainosus; H91.90 Unspecified hearing loss, unspecified ear; I11.0 Hypertensive heart disease with heart failure; E66.01 Morbid (severe) obesity due to excess calories; R09.02 Hypoxemia; Z96.21 Cochlear implant status; Z68.34 Body mass index [BMI] 34.0-34.9, adult
CPT/HCPCS: 36415; 36569; 71045; 80048; 80053; 83605; 83735; 84443; 84484; 85025; 85027; 85610; 85730; 93005; 93306; 94640; 96361; 96365; 96375; 99285; A9270; C1751; J1160; J1650; J1940; J3475; J3480; J7030; J7040

== ENCOUNTER → 2023-03-06 12:25 | Outpatient (CLI) | payer MEDICARE, SELFPAY ==
--- NOTE | ~2023-03-06 | XR_ITS ---
Right foot Technique: AP, oblique, and lateral views were obtained. Clinical History: Pain Findings: No acute fracture or dislocation is seen. There is hallux valgus with mild to moderate dege nerative change of the first metatarsophalangeal joint region. Plantar calcaneal spur present. Soft t issues are unremarkable. Impression: Hallux valgus with mild to moderate degenerative change at the first MTP joint region. Reviewed, dictated and finalized at location M. Impression: Hallux valgus with mild to moderate degenerative change at the first MTP joint region.
== END ==
PROVIDERS: PCP Family Medicine; Visit Provider Family Medicine
DX: M10.9 Gout, unspecified (principal); M20.11 Hallux valgus (acquired), right foot; M19.071 Primary osteoarthritis, right ankle and foot
CPT/HCPCS: 73630

== ENCOUNTER 2023-03-06 12:36 | Outpatient (CLI) | payer MEDICARE, SELFPAY ==
[2023-03-06 19:11] LABS: Uric Acid 8.2 mg/dL (2.5-7.5)
== END 2023-03-06 12:37 | disposition home or self-care (01) ==
LOC: ANHGOSHLAB 12:38
PROVIDERS: PCP Family Medicine; Visit Provider Family Medicine
DX: M10.9 Gout, unspecified (principal)
CPT/HCPCS: 36415; 84550

== ENCOUNTER 2023-06-12 09:04 | Outpatient (CLI) | payer MEDICARE, SELFPAY ==
--- NOTE | 2023-07-03 19:17 | WPDHOMESLEEP ---
Sleep Study - Home Unattended Date of Study: 06/12/23 Ordering Provider: Tio Shea MD Interpreting Provider: Coretta Cuevas MD Home Sleep Study Type: Watch PAT Height: 1.52 m Weight: 80.739 kg Body Mass Index: 34.7 Neck Circumference (inches): 14.5 Adams: 11 Reason for Sleep Study waking during the night, hypersomnolence in the day Sleep History Stella Carroll is a 67-year-old woman with problems waking at night due to pain following shingles in October. She also wakes at night sometimes not due to pain. She never awakens from sleep short of breath. She never wakes at night with heartburn, belching or coughing.??She constantly snores snores, constantly snores loudly enough that others complain. She never has trouble sleeping when she has a cold. She never wakes up gasping for breath during the night. She never has breathing problems at night. She never sweats excessively at night. She never notices her heart pounding or beating irregularly during the night. She occasionally falls asleep during the day. She occasionally falls asleep involuntarily, never falls asleep while driving. She never experiences loss of muscle tone with strong emotion. She never feels paralyzed on waking or falling asleep. She frequently experiences vivid dreams upon waking or falling asleep. She never feels afraid of going to sleep. She occasionally has nightmares. She occasionally recalls her dreams. She occasionally has thoughts racing through her mind. She occasionally feels sad or depressed. She occasionally feels anxiety. She rarely notices parts of her body jerk. She never kicks during the night. She never feels crawling or aching feelings in her legs. She never feels leg pain at night. She never has morning jaw pain, and occasionally grinds her teeth at night. She constantly feels bothered by pain during the day, is constantly awakened by pain during the night. She never wakes up feeling stiff in the morning, rarely wakes feeling sore or achy in the morning. She never awakens with pain in her neck, spine, or joints. She was having frequent nightmares with imipramine, now is off the medication and this problem has improved Normal bedtime is 10:30 p.m., falling asleep within 2-4 hours. She wakes up once during the night. while awake at night, she checks her emails. This awakening occurs in the middle of the night. She reports getting 5 hours of sleep per night. Her wake time is between 8:00 am and 9:00 am. SHe is occasionally refreshed on waking. She takes naps in the afternoon or evening. A short nap may be refreshing. She feels better in the afternoon compared to other times of day. Habits:??Tobacco: Never Caffeine: none. Alcohol: none Recreational substances: none [facility] Past Medical History Medical History (Updated 07/03/23 @ 19:42 by Coretta Cuevas MD) (HFpEF) heart failure with preserved ejection fraction Benign essential hypertension Breast cancer screening by mammogram Diabetes mellitus type 2 in obese Gout Herpes zoster Mixed hyperlipidemia Obesity (BMI 30.0-34.9) Surgical History Surgical History H/O section X2 H/O tubal ligation History of cochlear implant Family History Family History Sibling Patient's sister is Mother Patient's mother is Other Family history of elevated blood lipids Family history of glaucoma Hypertension Social History Social History Social History: The patient is and lives with her . She has 2 children. She is retired from [employer]. She is a lifelong nonsmoker. She does not use any alcohol marijuana or illicit drugs. Code status full code Smoking status: Never smoker Alcohol intake: never Substance use: never Lack of Transportation:
[2023-07-03 19:24] VITALS: BMI 34.7
== END 2023-06-13 08:18 | disposition home or self-care (01) ==
LOC: ANHCSM 09:05
PROVIDERS: PCP Family Medicine; Visit Provider Family Medicine
DX: G47.33 Obstructive sleep apnea (adult) (pediatric) (principal); I10 Essential (primary) hypertension; E11.9 Type 2 diabetes mellitus without complications; E66.9 Obesity, unspecified; Z68.34 Body mass index [BMI] 34.0-34.9, adult; E78.5 Hyperlipidemia, unspecified
CPT/HCPCS: 95800

== ENCOUNTER 2023-07-31 11:07 | Outpatient (CLI) | payer MEDICARE, SELFPAY ==
[2023-07-31 19:07] LABS: Basophils Absolute Auto 0.1 K/mm3 (0.0-0.1); Basophils Percent Auto 0.7 % (0.2-1.2); Eosinophils Absolute Auto 0.1 K/mm3 (0-0.3); Hematocrit 40.7 % (37.0-47.0); Hemoglobin 13.8 g/dL (12.0-15.0); Immature Granulocyte Absolute 0.06 K/mm3 (0.00-0.031); Immature Granulocyte Percent A 0.4 % (0-0.5); Lymphocytes Absolute Auto 1.73 K/mm3 (0.9-3.2); Lymphocytes Percent Auto 12.2 % (18.3-44.2); Mean Corpuscular HGB Conc 33.9 g/dl (32-36); Mean Corpuscular Hemoglobin 31.1 pg (26-34); Mean Corpuscular Volume 91.7 fl (80-100); Monocytes Absolute Auto 0.7 K/mm3 (0.1-0.6); Monocytes Percent Auto 5.2 % (2.6-8.5); Neutrophils Absolute Auto 11.4 K/mm3 (1.3-6.7); Neutrophils Percent Auto 80.5 % (45.5-73.1); Platelet Count Result 411 k/mm3 (150-375); Red Blood Count 4.44 M/mm3 (4.2-5.4); Red Cell Distribution Width 13.7 % (11.5-14.5); White Blood Count 14.2 K/mm3 (4.5-10.0)
[2023-07-31 19:18] LABS: LDL Cholesterol Direct 82 mg/dL
[2023-07-31 19:55] LABS: Vitamin D 25 Hydroxy 50.6 ng/mL
[2023-07-31 20:03] LABS: Hemoglobin A1C 7.1 % (<5.7)
[2023-07-31 20:39] LABS: Anion Gap 13 mmol/L (8-16); Blood Urea Nitrogen 22 mg/dL (7-17); Calcium 10.3 mg/dL (8.4-10.2); Carbon Dioxide 30 mmol/L (22-30); Chloride 95 mmol/L (98-107); Cholesterol 175 mg/dL (0-200); Estimated Glomerular Filt Rate 23; Glucose 153 mg/dL (65-110); HDL Direct 51 mg/dL; Potassium 2.3 mmol/L (3.4-5.0); Sodium 138 mmol/L (137-145); Triglycerides 129 mg/dL (<150)
== END 2023-07-31 11:08 | disposition home or self-care (01) ==
LOC: ANHGOSHLAB 11:08
PROVIDERS: PCP Family Medicine; Visit Provider Family Medicine
DX: E66.9 Obesity, unspecified (principal); I10 Essential (primary) hypertension; R73.03 Prediabetes
CPT/HCPCS: 36415; 80048; 80061; 82306; 83036; 85025

== ENCOUNTER 2023-08-01 09:57 | Inpatient (IN) | payer MEDICARE, SELFPAY ==
[2023-08-01] VITALS (9 sets, daily range): BP systolic 122–157; BP diastolic 63–78; PULSE 69–91; RESP 13–18; TEMP 36.4–36.8; O2SAT 97–100; BMI 35.4
--- NOTE | ~2023-08-01 | CT_ITS ---
EXAMINATION: CTA chest PE protocol DATE: 08/06/2023 15:56 INDICATION: tachycardia, SOB TECHNIQUE: Computed tomography angiography (CTA) of the chest was performed with 100 mL Omnipaque-350 intravenous contrast timed to evaluate the pulmonary arteries. Coronal maximum intensity projection 3D-reconstructions were created by the technologist. The dose-length product (DLP) was 436.59 mGy-cm. Automated exposure control and iterative reconstruction technique were employed. COMPARISON: X-ray chest 08/04/2023. FINDINGS: Lung parenchyma and airways: Patchy, mostly central groundglass opacities, most pronounced in the rig ht lower lobe. Dependent scar/atelectasis. Multiple sub-6 mm pulmonary nodules. Mild airway narrowing , likely age-related tracheomalacia. Pleura: Unremarkable. Thoracic inlet, axillae and chest wall: Unremarkable. Thoracic aorta: Normal. Mediastinum: Enlarged mediastinal and bilateral hilar lymph nodes. Enlarged pulmonary arteries as can be seen with pulmonary arterial hypertension. Heart and pericardium: Normal. Coronary artery calcifications: Absent. Upper abdomen: No significant finding. Bones: No acute osseous finding. Pulmonary arteries: Study quality: Motion artifact in the lower lobes, overall diagnostic. No pulmona ry emboli detected. IMPRESSION: No CT evidence of acute pulmonary embolus. Pulmonary opacities may reflect asymmetric edema or infection. Mediastinal and bilateral hilar lymphadenopathy. Multiple sub-6 mm pulmonary nodules requiring no additional evaluation unless the patient is at high risk, in which case consider an optional follow-up low-dose noncontrast CT in 12 months. Reviewed, dictated and finalized at location K. AULICS ENGINEER IMPRESSION: No CT evidence of acute pulmonary embolus. Pulmonary opacities may reflect asymmetric edema or infection. Mediastinal and bilateral hilar lymphadenopathy. Multiple sub-6 mm pulmonary nodules requiring no additional evaluation unless t he patient is at high risk, in which case consider an optional follow-up low-do se noncontrast CT in 12 months.
--- NOTE | ~2023-08-01 | US_ITS ---
EXAMINATION: US renal BI DATE: 08/02/2023 11:17 INDICATION: Acute kidney injury. TECHNIQUE: Multiple ultrasound grayscale images of the kidneys were obtained. COMPARISON: None. FINDINGS: The right kidney measures 11.2 x 4.0 x 4.7 cm. The left kidney measures 9.8 x 5.6 x 4.5 cm. The kidne ys demonstrate normal parenchymal echogenicity. There is no hydronephrosis. The bladder is normal. IMPRESSION: 1. Normal kidneys. No hydronephrosis. Reviewed, dictated and finalized at location A. HOUSE ATTENDANT
--- NOTE | ~2023-08-01 | XR_ITS ---
EXAMINATION: XR chest 2V DATE: 08/03/2023 10:45 INDICATION: Leukocytosis. TECHNIQUE: Frontal and lateral views of the chest were obtained. COMPARISON: Chest single view 11/16/2022 FINDINGS: There are mild airspace opacities in the lower lung zones. No pleural effusion or pneumotho rax. The heart size is normal. IMPRESSION: 1. Mild airspace opacities in the lower lung zones, consistent with atelectasis versus pneumonia. Reviewed, dictated and finalized at location A. EL ENGINEER
--- NOTE | ~2023-08-01 | XR_ITS ---
EXAMINATION: XR chest 1V portable DATE: 08/04/2023 11:50 INDICATION: Pneumonia. TECHNIQUE: A single frontal view of the chest was obtained. COMPARISON: Chest 2 views 08/03/2023 FINDINGS: There is mild atelectasis in right mid and lower lung zones. No pleural effusion or pneumot horax. The heart size is normal. IMPRESSION: 1. Mild atelectasis in right mid and lower lung zones. Reviewed, dictated and finalized at location A. ON OPERATOR
--- NOTE | 2023-08-01 10:42 | ECG_ITS ---
Measurements Intervals [place] Rate: 70 P: 51 MO: 154 QRS: 23 QRSD: 101 T: 21 QT: 412 QTc: 446 Interpretive Statements SINUS RHYTHM NONSPECIFIC ST & T-WAVE ABNORMALITY COMPARED TO ECG 11/20/2022 12:57:42 NO SIGNIFICANT CHANGES Electronically Signed On 08-01-2023 15:06:48 PRODUCTION EXPEDITER by Belinda Smith M.D.
[2023-08-01 11:32] LABS: Basophils Absolute Auto 0.1 K/mm3 (0.0-0.1); Basophils Percent Auto 0.8 % (0.2-1.2); Eosinophils Absolute Auto 0.2 K/mm3 (0-0.3); Eosinophils Percent Auto 1.9 % (0-4.4); Hematocrit 38.1 % (37.0-47.0); Immature Granulocyte Absolute 0.03 K/mm3 (0.00-0.031); Immature Granulocyte Percent A 0.3 % (0-0.5); Lymphocytes Absolute Auto 1.58 K/mm3 (0.9-3.2); Lymphocytes Percent Auto 13.4 % (18.3-44.2); Mean Corpuscular HGB Conc 34.1 g/dl (32-36); Mean Corpuscular Volume 90.7 fl (80-100); Mean Platelet Volume 11.2 fl (7.4-10.4); Monocytes Absolute Auto 0.7 K/mm3 (0.1-0.6); Neutrophils Absolute Auto 9.2 K/mm3 (1.3-6.7); Neutrophils Percent Auto 77.6 % (45.5-73.1); Platelet Count Result 397 k/mm3 (150-375); White Blood Count 11.8 K/mm3 (4.5-10.0)
[2023-08-01 11:45] LABS: Alanine Aminotransferase 47 U/L (6-35); Albumin Level 4.3 g/dL (3.5-5.1); Alkaline Phosphatase 166 U/L (38-126); Anion Gap 11 mmol/L (8-16); Aspartate Amino Transferase 41 U/L (14-36); Bilirubin,Total 0.7 mg/dL (0.2-1.3); Blood Urea Nitrogen 21 mg/dL (7-17); Calcium 9.6 mg/dL (8.4-10.2); Carbon Dioxide 29 mmol/L (22-30); Chloride 100 mmol/L (98-107); Estimated CRCL calculation 21 ml/min; Estimated Glomerular Filt Rate 23; Glucose 175 mg/dL (65-110); Potassium 2.3 mmol/L (3.4-5.0); Sodium 140 mmol/L (137-145)
[2023-08-01 11:55] LABS: Magnesium 2.3 mg/dL (1.6-2.3)
[2023-08-01] MEDS: POTASSIUM CHLORIDE 20 MEQ PACKET (FOR LIQUID) 40 MEQ PO ×2 (12:00→18:13)
[2023-08-01] MEDS: SODIUM CHLORIDE 0.9% IV 1,000 ML 999 ML IV CONT (12:01)
[2023-08-01] MEDS: KCL 20 MEQ/SW 100 ML 100 ML 50 MEQ IVPB (12:01)
[2023-08-01 12:07] LABS: Appearance Urine Clear (Clear); Bacteria Urine None Seen /hpf; Bilirubin Urine Negative (Negative); Blood Urine 1+ (Negative); Color Urine Yellow (Yellow); Glucose Urine UA Negative (Negative); Ketones Urine Negative (Negative); Leukocyte Esterase Ur Negative LEU/UL (Negative); Nitrate Urine Negative (Negative); Non Pathogenic Casts 0-2; Protein Urine 1+ mg/dL (Negative); RBC Urine 0-2 /hpf (0-2); Specific Grav Ur 1.005 (1.001-1.035); Squamous Epithelial Cell Urine None seen /hpf (Few); Urobilinogen Urine 0.2 mg/dL (<2.0); WBC Urine 0-5 /hpf; pH Urine 7.5 (5.0-9.0)
[2023-08-01 12:23] LABS: Add Urine Microscopic? YES
--- NOTE | 2023-08-01 12:23 | ED.GENADULT ---
HPI - General Adult General Chief complaint: Recheck/Abnormal Lab/Rx Stated complaint: low potassium Time Seen by Provider: 08/01/23 11:29 History of Present Illness HPI narrative: 68-year-old female presenting to the emergency department for evaluation for outpatient labs showing hypokalemia. Patient does have prior history of hypokalemia. Patient had previously been on potassium pills but had been told to stop approximately 6 months ago. Patient had routine labs checked yesterday and was found have a potassium 2.5. Patient presented to the ED today for evaluation and was to a potassium of 2.3. Patient denies any chest pain shortness breath nausea vomiting diarrhea. Patient denies any change in needing or bowel habits. Related Data Home Medications Medication Instructions Recorded Confirmed cholecalciferol (vitamin D3) 125 125 mcg PO DAILY 10/24/22 04/29/23 mcg (5,000 unit) capsule rosuvastatin 40 mg tablet mg PO 07/31/23 Allergies Allergy/AdvReac Type Severity Reaction Status Date / Time No Known Allergies Allergy Verified 08/01/23 11:30 Review of Systems Review of Systems: All systems reviewed & are unremarkable except as noted in HPI and below PMFSH Past Medical History Medical History (HFpEF) heart failure with preserved ejection fraction Benign essential hypertension Breast cancer screening by mammogram Diabetes mellitus type 2 in obese Gout Herpes zoster Mixed hyperlipidemia Obesity (BMI 30.0-34.9) Surgical History Surgical History H/O section X2 H/O tubal ligation History of cochlear implant Family History Family History Sibling Patient's sister is Mother Patient's mother is Other Family history of elevated blood lipids Family history of glaucoma Hypertension Social History Social History Social History: The patient is and lives with her . She has 2 children. She is retired from [email or web address]. She is a lifelong nonsmoker. She does not use any alcohol marijuana or illicit drugs. Code status full code Smoking status: Never smoker Alcohol intake: never Substance use: never Lack of Transportation: No Lack of Food: Never True Current Housing: I Have Housing Concerned About Future Housing: No Difficulty Paying Gas/Electric Bills: No Difficulty Paying for Meds: No Currently Unemployed: No Education: Decline to Answer Difficulty w/ Childcare or Family Care: No Spiritual care concerns: No Exam Narrative: APPEARANCE: Well appearing, no pain, no distress, well-nourished. HEAD: normocephalic, atraumatic. EYES: PERRLA/EOMI, conjunctivae clear. NOSE: Normal no drainage NECK: Supple. No adenopathy, no masses. RESPIRATORY: Airway patent, respirations nonlabored. Clear to auscultation bilaterally, no rales, rhonchi, wheezing. CARDIOVASCULAR: Regular rate and rhythm without murmurs rubs or gallops. ABDOMINAL: Soft, nontender, nondistended, normal bowel sounds MUSCULOSKELETAL: Moves all extremities. Strength/ROM intact, No edema, No calf tenderness. NEURO: Alert. Cranial nerves II through XII intact. Grossly intact SKIN: Warm, dry. Normal Color Course Course Emergency Course: 5-year-old female presents to the emergency department for evaluation of hypokalemia. Patient had 40 mEq p.o. x2 and 20 mg once IV x1. Patient is afebrile with no leukocytosis and a stable hemoglobin. Patient also has an KARINA with a creatinine of 2.1. Patient was ordered IV fluids. Case was discussed with the hospitalist and patient was accepted for admission. Vital Signs Vital signs: Vital Signs Temperature 98.2 F 08/01/23 10:40 Pulse Rate 84 08/01/23 10:40 Respiratory Rate 16
--- NOTE | 2023-08-01 13:50 | PC.NURSE ---
ordered pt. lunch tray.
--- NOTE | 2023-08-01 17:46 | PM.IMHP ---
H&P: HPI History of Present Illness Date/Time: 08/01/23 17:46 Chief Complaint: Abnormal Lab Narrative: 68 y/o F presents here with abnormal lab (hypoK) and KARINA with PMH of HF with preserved EF, HTN, pre-DM, HLD, and gout. Patient was seen by her PCP on 07/31 for a general checkup. Reported then she was continuing to have post-herpetic pain to her left chest wall post-shingles infection in October. Also reported that she was continuing to have Gout flares. PCP increased patient's gabapentin to 300 mg BID with 200 mg PRN TID and allopurinol was doubled. Basic labs were ordered and completed on 07/31. Patient was found to have a mildly, hypokalemia at 2.3, and an KARINA with a creatinine of 2.1 (previously 0.70 in December of 2022), and a mildly elevated WBC at 14.2. Patient reports that her potassium was possibly discontinued by her bonding molder, believed she did not need to take them anymore. Potassium last filled in December of 2022 (#90). Patient states she has not been taking these supplements for the last couple months. Per chart review, potassium has remained on patient's med list and has not been formally discontinued. patient currently denies any nausea, vomiting, diarrhea, poor p.o. intake, alterations in medications (excluding meds adjusted yesterday), or increased swelling to her lower extremities or abdomen. Has overall felt well and has no current complaints. Last KARINA documented was in December of 2022 (0.8 -> 1.4). Believed etiology was related to over-diuresis, was on HCTZ and Lasix at the time. HCTZ was discontinued and Lasix was held. KARINA resolved, however when Lasix was added back due to lower extremity swelling creatinine increased from 0.94 -> 1.35. With return to 0.89 at time of d/c and Lasix was adjusted to 1 20 mg tablet every 3rd day as needed ( if weight more than 2 lb in a day or 5 lb in a week). Has since had Lasix increased to 20 mg tablets once daily. Review of Systems Review of Systems: All systems reviewed & are unremarkable except as noted in HPI and below PMFSH Past Medical History Medical History (HFpEF) heart failure with preserved ejection fraction Atrial fibrillation/flutter Dx at [facility] during admission on 12/05/22-12/11/22 Breast cancer screening by mammogram Diabetes mellitus type 2 in obese GERD without esophagitis Gout Herpes zoster Shingles Flare in October of 2022 HTN (hypertension) Migraine, unspecified, not intractable, without status migrainosus Mitral regurgitation Mixed hyperlipidemia Mood disorder Obesity (BMI 30.0-34.9) Obstructive sleep apnea Unspecified sensorineural hearing loss Surgical History Surgical History H/O section X2 H/O tubal ligation History of cochlear implant Family History Family History Sibling Patient's sister is Mother Patient's mother is Other Family history of elevated blood lipids Family history of glaucoma Hypertension Social History Social History Social History: The patient is and lives with her . She has 2 children. She is retired from [employer]. She is a lifelong nonsmoker. She does not use any alcohol marijuana or illicit drugs. Code status full code Smoking status: Never smoker Alcohol intake: never Substance use: never Substance use type: does not use Do You Feel Safe in your Home?: Yes Lack of Transportation: No Lack of Food: Never True Current Housing: I Have Housing Concerned About Future Housing: No Difficulty Paying Gas/Electric Bills: No Difficulty Paying for Meds: No Currently Unemployed: No Education: High School Diploma/GED Difficulty w/ Childcare or Family Care: No Spiritual care concerns: No Meds Home Medica
--- NOTE | 2023-08-01 21:25 | ADMGEN ---
This patient, Stella Carroll, was admitted to Medical Room 253-01. Patient/family oriented to hospital policies and general routines including ID bracelet, bed and alarms, visiting hours, pain management, procedures, bathroom and other care routines, personal items, smoking policy, room service/diet, and visiting hours. Information on how to activate the Rapid Response Team has been discussed. Patient/Family are encouraged to report perceived risks to care and to ask questions if they do not understand what they are told or what they should do.
[2023-08-01 21:44] LABS: Glucose Point of Care 153 mg/dl (65-105)
[2023-08-01 22:29] LABS: Anion Gap 9 mmol/L (8-16); Blood Urea Nitrogen 19 mg/dL (7-17); Calcium 8.9 mg/dL (8.4-10.2); Carbon Dioxide 24 mmol/L (22-30); Chloride 107 mmol/L (98-107); Estimated CRCL calculation 25 ml/min; Estimated Glomerular Filt Rate 28; Glucose 200 mg/dL (65-110); Potassium 3.5 mmol/L (3.4-5.0); Sodium 140 mmol/L (137-145)
[2023-08-02] VITALS (9 sets, daily range): BP systolic 120–132; BP diastolic 58–92; PULSE 71–82; RESP 14–20; TEMP 36.4–36.6; O2SAT 94–98; BMI 35.4
[2023-08-02] MEDS: MELATONIN 3 MG TABLET 6 MG PO ×2 (00:14→20:35)
[2023-08-02] MEDS: GABAPENTIN 300 MG CAPSULE PO ×3 (00:14→20:36)
[2023-08-02] MEDS: APIXABAN 5 MG TABLET PO ×3 (00:14→20:35)
[2023-08-02] MEDS: LACTATED RINGERS 1,000 ML 75 ML IV CONT (00:15)
[2023-08-02 06:25] LABS: Basophils Absolute Auto 0.1 K/mm3 (0.0-0.1); Basophils Percent Auto 0.9 % (0.2-1.2); Eosinophils Absolute Auto 0.3 K/mm3 (0-0.3); Eosinophils Percent Auto 2.9 % (0-4.4); Hematocrit 33.7 % (37.0-47.0); Hemoglobin 11.2 g/dL (12.0-15.0); Immature Granulocyte Absolute 0.03 K/mm3 (0.00-0.031); Immature Granulocyte Percent A 0.3 % (0-0.5); Lymphocytes Absolute Auto 1.72 K/mm3 (0.9-3.2); Lymphocytes Percent Auto 15.1 % (18.3-44.2); Mean Corpuscular HGB Conc 33.2 g/dl (32-36); Mean Corpuscular Hemoglobin 30.8 pg (26-34); Mean Corpuscular Volume 92.6 fl (80-100); Mean Platelet Volume 11.8 fl (7.4-10.4); Monocytes Absolute Auto 0.9 K/mm3 (0.1-0.6); Monocytes Percent Auto 7.6 % (2.6-8.5); Neutrophils Absolute Auto 8.4 K/mm3 (1.3-6.7); Neutrophils Percent Auto 73.2 % (45.5-73.1); Platelet Count Result 344 k/mm3 (150-375); Red Blood Count 3.64 M/mm3 (4.2-5.4); Red Cell Distribution Width 14.5 % (11.5-14.5); White Blood Count 11.4 K/mm3 (4.5-10.0)
[2023-08-02 06:50] LABS: Alanine Aminotransferase 35 U/L (6-35); Albumin Level 3.4 g/dL (3.5-5.1); Alkaline Phosphatase 125 U/L (38-126); Anion Gap 10 mmol/L (8-16); Aspartate Amino Transferase 32 U/L (14-36); Bilirubin,Total 0.5 mg/dL (0.2-1.3); Blood Urea Nitrogen 17 mg/dL (7-17); Calcium 9.1 mg/dL (8.4-10.2); Carbon Dioxide 24 mmol/L (22-30); Chloride 108 mmol/L (98-107); Creatine Kinase 99 U/L (30-135); Estimated CRCL calculation 24 ml/min; Estimated Glomerular Filt Rate 26; Glucose 156 mg/dL (65-110); Magnesium 2.2 mg/dL (1.6-2.3); Phosphorus 2.4 mg/dL (2.5-4.5); Potassium 2.7 mmol/L (3.4-5.0); Sodium 142 mmol/L (137-145)
[2023-08-02 08:51] LABS: Glucose Point of Care 155 mg/dl (65-105)
[2023-08-02] MEDS: ROSUVASTATIN 10 MG TABLET 40 MG PO (08:51)
[2023-08-02] MEDS: amLODIPine BESYLATE 5 MG TABLET 10 MG PO (08:51)
[2023-08-02] MEDS: POTASSIUM CHLORIDE 20 MEQ PACKET (FOR LIQUID) 40 MEQ PO ×2 (08:51→16:13)
[2023-08-02] MEDS: CHOLECALCIFEROL 1,000 UNITS TABLET 5000 UNITS PO (08:51)
[2023-08-02] MEDS: allopurinoL 100 MG TABLET 200 MG PO (08:51)
[2023-08-02] MEDS: METOPROLOL SUCCINATE EXT REL 50 MG TABCR PO (08:51)
[2023-08-02] MEDS: MAGNESIUM OXIDE 400 MG TABLET PO (08:52)
[2023-08-02] MEDS: PANTOPRAZOLE 40 MG TABLET PO (08:52)
[2023-08-02] MEDS: POTASSIUM PHOS/SODIUM PHOS 250 MG TABLET PO ×2 (08:52→16:13)
[2023-08-02] MEDS: AMIODARONE HCL 200 MG TABLET PO (08:52)
--- NOTE | 2023-08-02 09:12 | PM.IMPN ---
Progress Note: A&P Assessment and Plan (1) Hypokalemia: Code(s): E87.6 - Hypokalemia Status: Acute Assessment and Plan: Hx of hypokalemia in December of 2022, r/t home diuretics no endorsement of poor p.o. intake, nausea, vomiting, or diarrhea. hold diuretic, monitor lower extremities for swelling, Nephrology consulted. continue tele monitoring repeat BMP at 1400, and in the a.m. continue to replete with p.o. and IVPB K+, continue supplementation at d/c. continue to monitor electrolytes (2) KARINA (acute kidney injury): Code(s): N17.9 - Acute kidney failure, unspecified Status: Acute Assessment and Plan: KARINA is related to multiple etiologies. no evidence of fluid overload -hold Lasix - continue stirct I&0 - Nephrology consulted, awaiting recs. -continue to monitor renal function. -Gentle fluid resuscitation (3) Diabetes mellitus type 2 in obese: Code(s): E11.69 - Type 2 diabetes mellitus with other specified complication; E66.9 - Obesity, unspecified Status: Acute Assessment and Plan: Type 2 diabetes a1C 7.1 on 07/31, no DM medications on patient's med list in the last few months hypoglycemia protocol POC blood glucose ACHS home medication resumed/held - none correct regimen ordered - low dose TIDWM and HS simulation educator consulted will need home medications at d/c and instruction for follow-up with PCP (4) HTN (hypertension): Qualifiers: Hypertension type: primary hypertension Qualified Code(s): I10 - Essential (primary) hypertension Code(s): I10 - Essential (primary) hypertension Status: Acute Assessment and Plan: continue amlodipine 10 mg p.o. daily. Monitor. (5) Post herpetic neuralgia: Code(s): B02.29 - Other postherpetic nervous system involvement Status: Acute Assessment and Plan: continue home medication gabapentin TID (6) Obstructive sleep apnea: Code(s): G47.33 - Obstructive sleep apnea (adult) (pediatric) Status: Acute Assessment and Plan: using CPAP at home, felt well with use and endorsed better quality sleep. However, has developed irritation at pressure points just above nasolabial folds due to mask. PCP was reaching out to Mason JEFFREY's office per note on 07/31/23. Plan Home Meds/Chronic Conditions Gout: Continue allopurinol 200 mg daily HLD: Continue rosuvastatin daily Anxiety: Continue alprazolam t.i.d. p.r.n. - AFib/AFlut: -continue home amiodarone and metoprolol. Continue anticoagulation, currently on Eliquis 5 mg q.12 hour OTC/supplements: Continue vitamin D3, magnesium, melatonin. continue oral potassium. GERD: Continue omeprazole Diet: Diabetic GI Prophylaxis: continuing home omeprazole DVT Prophylaxis: SCDs, continue home Eliquis Lines: pIV Code Status: Full Code Subjective Date/time seen: 08/02/23 09:12 Interval history: 68 y/o F presents here with abnormal lab (hypoK) and KARINA with PMH of HF with preserved EF, HTN, pre-DM, HLD, and gout. Patient was seen by her PCP on 07/31 for a general checkup. Reported then she was continuing to have post-herpetic pain to her left chest wall post-shingles infection in October. Also reported that she was continuing to have Gout flares. PCP increased patient's gabapentin to 300 mg BID with 200 mg PRN TID and allopurinol was doubled. Basic labs were ordered and completed on 07/31. Patient was found to have a mildly, hypokalemia at 2.3, and an KARINA with a creatinine of 2.1 (previously 0.70 in December of 2022), and a mildly elevated WBC at 14.2. Patient reports that her potassium was? possibly discontinued by her student teaching coordinator,? believed she did not need to take them anymore. Potassium last filled in December of 2022 (#90). ? Patient states she has not been taking these supplements for the last couple months. ?Chart review, reveals potassium has remained on patient's med list and has not b
--- NOTE | 2023-08-02 11:35 | PM.CNNEP ---
Assessment and Plan Assessment and plan (1) KARINA (acute kidney injury): Code(s): N17.9 - Acute kidney failure, unspecified Status: Acute Assessment and Plan: normal renal function at baseline (at least 7 months ago) she has bouts of KARINA in the past related to overdiuresis s/p IVFs (total of 1 liter) with only mild improvement in renal function check renal ultrasound, urine studies, and CPK UA with blood and protein - check serologies, ESR, and CRP diuretics on hold if volume status can tolerated, would resume low dose IVFs follow repeat labs and UOP (2) Hypokalemia: Code(s): E87.6 - Hypokalemia Status: Acute Assessment and Plan: presumably due to scheduled lasix/loop diuretics WITHOUT K+ supplementation K+ repletion as needed consider gentle IVFs with addition of K+ follow trend of K+ (3) HTN (hypertension): Qualifiers: Hypertension type: primary hypertension Qualified Code(s): I10 - Essential (primary) hypertension Code(s): I10 - Essential (primary) hypertension Status: Chronic Assessment and Plan: reasonable control at this time follow trend of hemodynamics (4) Obstructive sleep apnea: Code(s): G47.33 - Obstructive sleep apnea (adult) (pediatric) Status: Chronic Assessment and Plan: continue use of CPAP I will continue follow the patient with you while she remains hospitalized and make further recommendations as needed. Thank you for allowing me to participate in the care of this patient. History of Present Illness Reason for Consult Consult date: 08/04/23 Reason for consult: acute renal failure and hypokalemia Chief Complaint Chief complaint: Hypokalemia History of Present Illness Narrative: The patient is a 68-year-old female with a past medical history as outlined below who presented to [facility] Emergency Room at the behest of her primary care physician for evaluation of abnormal labs. The patient recently saw her primary care physician on 07/31 for routine follow-up and management of her chronic medical issues / problems. During that visit, she continued to have post herpetic pain secondary to her bout of shingles in October earlier this year. The pain was localized to her left chest wall and had been persistent since her initial diagnosis of shingles. Furthermore, she also reported ongoing issues with gout flares as well. Her PCP subsequently adjusted her gabapentin as well as her allopurinol and basic labs were ordered as well. She received a call from her primary care physician's office this after the labs came back which demonstrated hypokalemia and acute kidney injury/acute renal failure. she was subsequently instructed to go to the emergency room for further assessment. Workup and evaluation in the emergency room demonstrated the patient to be hemodynamically stable and in no apparent is distress. Repeat labs once again demonstrated her hypokalemia with a potassium of 2.3 and her acute kidney injury/acute renal failure with a creatinine of 2.10 mg/dL. On further questioning, despite the fact that she has listed on state still taking potassium supplements,, she believes her towboat captain discontinued this awhile back. She gave no symptoms of GI loss with regard to nausea, vomiting, diarrhea, or decreased oral intake. She has not taking any [id number] medications with regard to ibuprofen or any new antibiotics recently either. She does report that her Lasix has been adjusted several times and most recently was told to take 20 mg every day when previously she was taking it every other day and sometimes every 3 days. She was given potassium supplementation in the emergency room as well as the trial of IV fluids and was subsequently admitted to the hospital for further evaluation and therapy. Since her admission, her potassium initially normalized by repeat labs but then by labs done t
[2023-08-02 11:56] LABS: Glucose Point of Care 170 mg/dl (65-105)
[2023-08-02 14:48] LABS: Anion Gap 8 mmol/L (8-16); Blood Urea Nitrogen 17 mg/dL (7-17); Calcium 9.2 mg/dL (8.4-10.2); Carbon Dioxide 26 mmol/L (22-30); Chloride 107 mmol/L (98-107); Estimated CRCL calculation 25 ml/min; Estimated Glomerular Filt Rate 28; Glucose 155 mg/dL (65-110); Potassium 3.2 mmol/L (3.4-5.0); Sodium 141 mmol/L (137-145)
[2023-08-02 14:54] LABS: Creatine Kinase 89 U/L (30-135)
[2023-08-02 15:34] LABS: Eosinophil Urine None Seen % (None Seen)
[2023-08-02 15:35] LABS: Urine Eos QC 2nd Tech Confirmed
[2023-08-02 15:46] LABS: Creatinine Urine 79.4 mg/dL
[2023-08-02 15:47] LABS: Potassium Urine Random 60.8 meq/L; Sodium Urine Random 77 meq/L
[2023-08-02 15:52] LABS: Creatinine Urine 77.1 mg/dL; Urea Random Urine 412 MG/DL
[2023-08-02 16:00] LABS: Total Protein Urine Random 260 mg/dL; Ur Ttl Prot Creatinine Ratio 3.37 mg/mg (0-0.20)
[2023-08-02] MEDS: KCL 40 MEQ/0.45% NS 1,000 ML 100 ML IV CONT (16:43)
[2023-08-02 17:11] LABS: Glucose Point of Care 152 mg/dl (65-105)
[2023-08-03] VITALS (9 sets, daily range): BP systolic 114–121; BP diastolic 50–62; PULSE 74–85; RESP 14–20; TEMP 36.7–37.4; O2SAT 94–97
[2023-08-03] MEDS: ONDANSETRON INJ 4 MG/2 ML VIAL IV PUSH ×3 (01:21→16:41)
[2023-08-03] MEDS: KCL 40 MEQ/0.45% NS 1,000 ML 100 ML IV CONT ×2 (02:44→23:02)
[2023-08-03 05:46] LABS: Basophils Percent Auto 0.2 % (0.2-1.2); Eosinophils Absolute Auto 0.2 K/mm3 (0-0.3); Hematocrit 35.9 % (37.0-47.0); Hemoglobin 11.8 g/dL (12.0-15.0); Immature Granulocyte Absolute 0.09 K/mm3 (0.00-0.031); Immature Granulocyte Percent A 0.5 % (0-0.5); Lymphocytes Absolute Auto 0.52 K/mm3 (0.9-3.2); Lymphocytes Percent Auto 2.6 % (18.3-44.2); Mean Corpuscular HGB Conc 32.9 g/dl (32-36); Mean Corpuscular Hemoglobin 30.6 pg (26-34); Mean Corpuscular Volume 93.2 fl (80-100); Mean Platelet Volume 11.7 fl (7.4-10.4); Monocytes Absolute Auto 0.6 K/mm3 (0.1-0.6); Monocytes Percent Auto 3.1 % (2.6-8.5); Neutrophils Absolute Auto 18.4 K/mm3 (1.3-6.7); Neutrophils Percent Auto 92.6 % (45.5-73.1); Platelet Count Result 360 k/mm3 (150-375); Red Blood Count 3.85 M/mm3 (4.2-5.4); Red Cell Distribution Width 14.6 % (11.5-14.5); White Blood Count 19.8 K/mm3 (4.5-10.0)
[2023-08-03 05:53] LABS: Complement C3 132 mg/dL (88-165)
[2023-08-03 05:59] LABS: Anion Gap 8 mmol/L (8-16); Blood Urea Nitrogen 15 mg/dL (7-17); CRP 0.6 mg/dL (<1.0); Carbon Dioxide 23 mmol/L (22-30); Chloride 110 mmol/L (98-107); Estimated CRCL calculation 27 ml/min; Estimated Glomerular Filt Rate 30; Glucose 156 mg/dL (65-110); Magnesium 2.1 mg/dL (1.6-2.3); Phosphorus 2.5 mg/dL (2.5-4.5); Potassium 3.8 mmol/L (3.4-5.0); Sodium 141 mmol/L (137-145)
[2023-08-03 07:45] LABS: Erythrocyte Sedimentation Rate 70 mm/hr (0-20)
[2023-08-03 08:13] LABS: Glucose Point of Care 164 mg/dl (65-105)
[2023-08-03] MEDS: POTASSIUM CHLORIDE 20 MEQ PACKET (FOR LIQUID) 40 MEQ PO ×2 (08:27→16:41)
[2023-08-03] MEDS: GABAPENTIN 300 MG CAPSULE PO ×2 (08:28→20:26)
[2023-08-03] MEDS: CHOLECALCIFEROL 1,000 UNITS TABLET 5000 UNITS PO (08:28)
[2023-08-03] MEDS: ROSUVASTATIN 10 MG TABLET 40 MG PO (08:28)
[2023-08-03] MEDS: amLODIPine BESYLATE 5 MG TABLET 10 MG PO (08:28)
[2023-08-03] MEDS: PANTOPRAZOLE 40 MG TABLET PO (08:28)
[2023-08-03] MEDS: APIXABAN 5 MG TABLET PO ×2 (08:28→20:26)
[2023-08-03] MEDS: MAGNESIUM OXIDE 400 MG TABLET PO (08:29)
[2023-08-03] MEDS: AMIODARONE HCL 200 MG TABLET PO (08:29)
[2023-08-03] MEDS: METOPROLOL SUCCINATE EXT REL 50 MG TABCR PO (08:29)
--- NOTE | 2023-08-03 08:45 | PM.IMPN ---
Progress Note: A&P Assessment and Plan (1) Hypokalemia: Code(s): E87.6 - Hypokalemia Status: Acute Assessment and Plan: Hx of hypokalemia in December of 2022, r/t home diuretics no endorsement of poor p.o. intake, nausea, vomiting, or diarrhea. hold diuretic, monitor lower extremities for swelling, Nephrology consulted. continue tele monitoring repeat BMP at 1400, and in the a.m. continue to replete with p.o. and IVPB K+, continue supplementation at d/c. continue to monitor electrolytes (2) KARINA (acute kidney injury): Code(s): N17.9 - Acute kidney failure, unspecified Status: Acute Assessment and Plan: KARINA is related to multiple etiologies. no evidence of fluid overload -hold Lasix - continue stirct I&0 - Nephrology consulted, awaiting recs. -continue to monitor renal function. - continue Gentle fluid resuscitation (3) Diabetes mellitus type 2 in obese: Code(s): E11.69 - Type 2 diabetes mellitus with other specified complication; E66.9 - Obesity, unspecified Status: Acute Assessment and Plan: Type 2 diabetes a1C 7.1 on 07/31, no DM medications on patient's med list in the last few months hypoglycemia protocol POC blood glucose ACHS home medication resumed/held - none correct regimen ordered - low dose TIDWM and HS drift miner consulted will need home medications at d/c and instruction for follow-up with PCP (4) HTN (hypertension): Qualifiers: Hypertension type: primary hypertension Qualified Code(s): I10 - Essential (primary) hypertension Code(s): I10 - Essential (primary) hypertension Status: Acute Assessment and Plan: continue amlodipine 10 mg p.o. daily. Monitor. (5) Post herpetic neuralgia: Code(s): B02.29 - Other postherpetic nervous system involvement Status: Acute Assessment and Plan: continue home medication gabapentin TID (6) Obstructive sleep apnea: Code(s): G47.33 - Obstructive sleep apnea (adult) (pediatric) Status: Acute Assessment and Plan: -continue CPAP -use home settings (7) Abdominal pain of unknown cause: Onset Date: Unknown Code(s): R10.9 - Unspecified abdominal pain Status: Acute Assessment and Plan: Pt reports ongoing since shingles outbreak in -acute onset of n/v overnight, no fever, chills -check CXR -Zofran 4mg q,4-6 hrs IV, o.r.n -advance diet as tolerated Plan Home Meds/Chronic Conditions: Gout: HOLD allopurinol 200 mg daily HLD: Continue rosuvastatin daily Anxiety: Continue alprazolam t.i.d. p.r.n. AFib/AFlut: -continue home amiodarone and metoprolol. Continue anticoagulation, currently on Eliquis 5 mg q.12 hour OTC/supplements: Continue vitamin D3, magnesium, melatonin. continue oral potassium. GERD: Continue omeprazole Diet: Diabetic GI Prophylaxis: continuing home omeprazole DVT Prophylaxis: SCDs, continue home Eliquis Lines: pIV Code Status: Full Code Subjective Date/time seen: 08/03/23 08:45 Interval history: 68 y/o F presents here with abnormal lab (hypoK) and KARINA with PMH of HF with preserved EF, HTN, pre-DM, HLD, and gout. Patient was seen by her PCP on 07/31 for a general checkup. Reported then she was continuing to have post-herpetic pain to her left chest wall post-shingles infection in October. Also reported that she was continuing to have Gout flares. PCP increased patient's gabapentin to 300 mg BID with 200 mg PRN TID and allopurinol was doubled. Basic labs were ordered and completed on 07/31. Patient was found to have a mildly, hypokalemia at 2.3, and an KARINA with a creatinine of 2.1 (previously 0.70 in December of 2022), and a mildly elevated WBC at 14.2. Patient reports that her potassium was? possibly discontinued by her research study assistant,? believed she did not need to take them anymore. Potassium last filled in December of 2022 (#90).
[2023-08-03 11:57] LABS: Glucose Point of Care 159 mg/dl (65-105)
--- NOTE | 2023-08-03 12:07 | PM.PNNEP ---
Progress Note: A&P Assessment and Plan (1) KARINA (acute kidney injury): Code(s): N17.9 - Acute kidney failure, unspecified Status: Acute Assessment and Plan: mild improvement noted normal renal function at baseline (at least 7 months ago) she has bouts of KARINA in the past related to overdiuresis evaluation to date: CPK normal urine electrolytes non-prerenal renal ultrasound normal urine eosinophils negative complements normal - further serologies pending nephrotic range proteinuria noted... CRP okay, ESR slightly elevated etiology not clear -- perhaps related to pneumonia? diuretics on hold on low dose IVFs with K+ follow repeat labs and UOP (2) Hypokalemia: Code(s): E87.6 - Hypokalemia Status: Acute Assessment and Plan: improved if not stable presumably due to scheduled lasix/loop diuretics WITHOUT K+ supplementation K+ repletion as needed follow trend of K+ (3) Pneumonia: Code(s): J18.9 - Pneumonia, unspecified organism Status: Acute Assessment and Plan: suggestive by 08/02 CXR follow cultures data on antibiotics (4) HTN (hypertension): Qualifiers: Hypertension type: primary hypertension Qualified Code(s): I10 - Essential (primary) hypertension Code(s): I10 - Essential (primary) hypertension Status: Chronic Assessment and Plan: reasonable control at this time follow trend of hemodynamics (5) Obstructive sleep apnea: Code(s): G47.33 - Obstructive sleep apnea (adult) (pediatric) Status: Chronic Assessment and Plan: continue use of CPAP Will continue to follow. Subjective Date/time seen: 08/03/23 12:07 Interval history: Follow-up for acute kidney injury/acute renal failure and hypokalemia. She report nausea/vomiting overnight with improvement in symptoms with IV antiemetics; still persistent LUQ pain (thought to be secondary to post shingles pain); potassium doing better by AM labs and renal function slightly better (but not back to baseline); no acute distress voiced at the time of my visit. Exam Narrative: General: elderly but WD/WN female in NAD Heart: normal S1 and S2; no rub Lungs: clear to auscultation Abdomen: soft, nontender, nondistended, positive bowel sounds Extremities: no cyanosis or clubbing; no edema Skin: warm and dry Objective Data Vital Signs Vital Signs: Vital Signs Temp Pulse Resp BP Pulse Ox O2 Del Method 08/03/23 12:00 78 08/03/23 08:45 Room Air 08/03/23 04:00 81 08/03/23 00:00 74 08/02/23 20:00 72 08/03/23 03:58 98.1 F 85 20 117/50 L 97 08/02/23 20:00 Room Air 08/02/23 19:32 97.8 F 71 20 132/67 98 08/02/23 16:00 75 Intake/Output Intake/Output: Intake & Output 07/31/23 08/01/23 08/02/23 08/03/23 23:59 23:59 23:59 23:59 Intake Total 1100 1850 1790 Output Total 950 1600 Balance 1100 900 190 Meds/Results Medications: Active Medications Generic Name Dose Route Start Last Admin Trade Name Freq PRN Reason Stop Dose Admin Allopurinol 200 mg 08/02/23 09:00 08/03/23 08:29 Allopurinol 100 Mg Tablet PO Not Given DAILY CARROLL Alprazolam 0.25 mg 08/01/23 23:07 Alprazolam (*Crx) 0.25 Mg Tablet PO TID PRN Anxiety Amiodarone HCl 200 mg 08/02/23 09:00 08/03/23 08:29 Amiodarone Hcl 200 Mg Tablet PO 200 mg DAILY CARROLL Administration Amlodipine Besylate 10 mg 08/02/23 09:00 08/03/23 08:28 Amlodipine Besylate 5 Mg Tablet PO 10 mg QAM CARROLL Administration Apixaban 5 mg 08/01/23 23:35 08/03/23 08:28 Apixaban 5 Mg Tablet PO 5 mg Q12HR CARROLL Administration Dextrose 12.5 gm 08/01/23 18:33 Dextrose 50% 25 Gm/50 Ml Syringe IV PUSH PRN PRN Hypoglycemia Protocol Gabapentin 300 mg 08/01/23 23:40 08/03/23 08:28 Gabapentin 300 Mg Capsule PO 300 mg Q12HR CARROLL
--- NOTE | 2023-08-03 12:07 | P.PNNP_ITS ---
Progress Note: A&P Assessment and Plan (1) KARINA (acute kidney injury): Code(s): N17.9 - Acute kidney failure, unspecified Status: Acute Assessment and Plan: * mild improvement noted * normal renal function at baseline (at least 7 months ago) * she has bouts of KARINA in the past related to overdiuresis * evaluation to date: * CPK normal * urine electrolytes non-prerenal * renal ultrasound normal * urine eosinophils negative * complements normal - further serologies pending * nephrotic range proteinuria noted... * CRP okay, ESR slightly elevated * etiology not clear -- perhaps related to pneumonia? * diuretics on hold * on low dose IVFs with K+ * follow repeat labs and UOP (2) Hypokalemia: Code(s): E87.6 - Hypokalemia Status: Acute Assessment and Plan: * improved if not stable * presumably due to scheduled lasix/loop diuretics WITHOUT K+ supplementation * K+ repletion as needed * follow trend of K+ (3) Pneumonia: Code(s): J18.9 - Pneumonia, unspecified organism Status: Acute Assessment and Plan: * suggestive by 08/02 CXR * follow cultures data * on antibiotics (4) HTN (hypertension): Qualifiers: Hypertension type: primary hypertension Qualified Code(s): I10 - Essential (primary) hypertension Code(s): I10 - Essential (primary) hypertension Status: Chronic Assessment and Plan: * reasonable control at this time * follow trend of hemodynamics (5) Obstructive sleep apnea: Code(s): G47.33 - Obstructive sleep apnea (adult) (pediatric) Status: Chronic Assessment and Plan: * continue use of CPAP Will continue to follow. Subjective Date/time seen: 08/03/23 12:07 Interval history: Follow-up for acute kidney injury/acute renal failure and hypokalemia. She report nausea/vomiting overnight with improvement in symptoms with IV antiemetics; still persistent LUQ pain (thought to be secondary to post shingles pain); potassium doing better by AM labs and renal function slightly better (but not back to baseline); no acute distress voiced at the time of my visit. Exam Narrative: General: elderly but WD/WN female in NAD Heart: normal S1 and S2; no rub Lungs: clear to auscultation Abdomen: soft, nontender, nondistended, positive bowel sounds Extremities: no cyanosis or clubbing; no edema Skin: warm and dry Objective Data Vital Signs Vital Signs: Vital Signs Temp Pulse Resp BP Pulse Ox O2 Del Method 08/03/23 12:00 78 08/03/23 08:45 Room Air 08/03/23 04:00 81 08/03/23 00:00 74 08/02/23 20:00 72 08/03/23 03:58 98.1 F 85 20 117/50 L 97 08/02/23 20:00 Room Air 08/02/23 19:32 97.8 F 71 20 132/67 98 08/02/23 16:00 75 Intake/Output Intake/Output: Intake & Output 07/31/23 08/01/23 08/02/23 08/03/23 23:59 23:59 23:59 23:59 Intake Total 1100 1850 1790 Output Total 950 1600 Balance 1100 900 190 Meds/Results Medications: Active Medications Generic Name Dose Route Start Last Admin Trade Name Freq PRN Reason Stop Dose Admin Allo
[2023-08-03] MEDS: AZITHROMYCIN 500 MG/NS 250 ML 500 MG/250 ML BAG 250 MG IVPB (12:52)
[2023-08-03 17:05] LABS: Glucose Point of Care 115 mg/dl (65-105)
[2023-08-03] MEDS: MELATONIN 3 MG TABLET 6 MG PO (20:25)
[2023-08-03 20:54] LABS: Glucose Point of Care 112 mg/dl (65-105)
[2023-08-03] MEDS: guaiFENesin 600 MG/DEXTROMETHORPHAN 30 MG SR TAB 12 HR 1 TAB PO (22:11)
[2023-08-04] VITALS (9 sets, daily range): BP systolic 117–129; BP diastolic 57–59; PULSE 73–86; RESP 16–20; TEMP 36.6–37.4; O2SAT 91–98
[2023-08-04 06:08] LABS: Basophils Percent Auto 0.3 % (0.2-1.2); Eosinophils Absolute Auto 0.1 K/mm3 (0-0.3); Eosinophils Percent Auto 0.6 % (0-4.4); Hematocrit 34.4 % (37.0-47.0); Hemoglobin 11.7 g/dL (12.0-15.0); Immature Granulocyte Absolute 0.07 K/mm3 (0.00-0.031); Immature Granulocyte Percent A 0.7 % (0-0.5); Lymphocytes Absolute Auto 1.11 K/mm3 (0.9-3.2); Lymphocytes Percent Auto 10.6 % (18.3-44.2); Mean Corpuscular Hemoglobin 31.8 pg (26-34); Mean Corpuscular Volume 93.5 fl (80-100); Mean Platelet Volume 11.9 fl (7.4-10.4); Monocytes Absolute Auto 0.7 K/mm3 (0.1-0.6); Monocytes Percent Auto 6.8 % (2.6-8.5); Neutrophils Absolute Auto 8.5 K/mm3 (1.3-6.7); Platelet Count Result 339 k/mm3 (150-375); Red Blood Count 3.68 M/mm3 (4.2-5.4); Red Cell Distribution Width 14.8 % (11.5-14.5); White Blood Count 10.5 K/mm3 (4.5-10.0)
[2023-08-04 06:20] LABS: Anion Gap 10 mmol/L (8-16); Blood Urea Nitrogen 14 mg/dL (7-17); Calcium 9.1 mg/dL (8.4-10.2); Carbon Dioxide 21 mmol/L (22-30); Chloride 110 mmol/L (98-107); Estimated CRCL calculation 28 ml/min; Estimated Glomerular Filt Rate 32; Glucose 112 mg/dL (65-110); Potassium 3.8 mmol/L (3.4-5.0); Sodium 141 mmol/L (137-145)
--- NOTE | 2023-08-04 07:42 | PM.IMPN ---
Progress Note: A&P Assessment and Plan (1) Pneumonia: Code(s): J18.9 - Pneumonia, unspecified organism Status: Acute (2) Obstructive sleep apnea: Code(s): G47.33 - Obstructive sleep apnea (adult) (pediatric) Status: Acute (3) HTN (hypertension): Qualifiers: Hypertension type: primary hypertension Qualified Code(s): I10 - Essential (primary) hypertension Code(s): I10 - Essential (primary) hypertension Status: Acute (4) Hypokalemia: Code(s): E87.6 - Hypokalemia Status: Acute (5) KARINA (acute kidney injury): Code(s): N17.9 - Acute kidney failure, unspecified Status: Acute (6) Diabetes mellitus type 2 in obese: Code(s): E11.69 - Type 2 diabetes mellitus with other specified complication; E66.9 - Obesity, unspecified Status: Acute Plan Pneumonia:? Abdominal pain has decreased to 2/10 CXR revealed atelectasis versus PN -continue telemetry monitoring -oxygen titration as needed to keep SpO2 above 93% -blood cultures pending -continue azithromycin 500 mg IV every 24 hours -continue ceftriaxone 1 g IV every 24 hours -continue incentive spirometry every 2 hours -sputum culture pending Hypokalemia?has improved, K+ is 3.8 -continue hold diuretic -DC continuous infusion of NS with KCL -change KCL 40MG IVPB, from BID to daily -continue monitor electrolytes -repeat BMP, CBC in the a.m. continue tele monitoring continue to? replete with p.o. and IVPB K+ continue supplementation at d/c. KARINA: ?is related to multiple etiologies. no evidence of fluid overload, creatinine is 1.6 -continue hold Lasix - continue stirct I&0 - Nephrology is following -continue to?monitor renal function. Type 2 diabetes?a1C 7.1 on? 07/31, no DM medications on patient's med list in the last few months hypoglycemia protocol POC blood glucose ACHS home medication resumed/held -?none correct regimen ordered - low dose TIDWM and HS personal development educator consulted will need home medications at d/c and instruction for follow-up with PCP HTN: continue home medication amlodipine post herpetic neuralgia -Continue home medications gabapentin t.i.d. AYLEEN -continue CPAP overnight -use home settings Plan Home Meds/Chronic Conditions: Gout: ?HOLD?allopurinol 200 mg daily HLD: ?Continue rosuvastatin daily ? Anxiety:? Continue alprazolam t.i.d. p.r.n. ?AFib/AFlut:? -continue home amiodarone and metoprolol.? Continue anticoagulation, currently on Eliquis 5 mg q.12 hour OTC/supplements:? Continue vitamin D3, magnesium, melatonin.? continue oral potassium. ?GERD: Continue omeprazole Subjective Date/time seen: 08/04/23 07:42 Interval history: Interval history: 68 y/o F presents here with abnormal lab (hypoK) and KARINA with PMH of HF with preserved EF, HTN, pre-DM, HLD, and gout. Patient was seen by her PCP on 07/31 for a general checkup. Reported then she was continuing to have post-herpetic pain to her left chest wall post-shingles infection in October. Also reported that she was continuing to have Gout flares. PCP increased patient's gabapentin to 300 mg BID with 200 mg PRN TID and allopurinol was doubled. Basic labs were ordered and completed on 07/31. Patient was found to have a mildly, hypokalemia at 2.3, and an KARINA with a creatinine of 2.1 (previously 0.70 in December of 2022), and a mildly elevated WBC at 14.2. Patient reports that her potassium was? possibly discontinued by her training administrator,? believed she did not need to take them anymore. Potassium last filled in December of 2022 (#90). ? Patient states she has not been taking these supplements for the last couple months. ?Chart review, reveals? potassium has remained on patient's med list and has not been formally discontinued. ? patient currently denies any nausea, vomiting, diarrhea, poor p.o. intake, alterations in medications (excluding meds adjusted yesterday),? or increased swelling to her lower extremities or abd
[2023-08-04 07:59] LABS: Glucose Point of Care 114 mg/dl (65-105)
[2023-08-04] MEDS: CHOLECALCIFEROL 1,000 UNITS TABLET 5000 UNITS PO (08:52)
[2023-08-04] MEDS: POTASSIUM CHLORIDE 20 MEQ PACKET (FOR LIQUID) 40 MEQ PO (08:52)
[2023-08-04] MEDS: APIXABAN 5 MG TABLET PO ×2 (08:53→21:07)
[2023-08-04] MEDS: GABAPENTIN 300 MG CAPSULE PO ×2 (08:53→21:08)
[2023-08-04] MEDS: ROSUVASTATIN 10 MG TABLET 40 MG PO (08:53)
[2023-08-04] MEDS: PANTOPRAZOLE 40 MG TABLET PO (08:53)
[2023-08-04] MEDS: amLODIPine BESYLATE 5 MG TABLET 10 MG PO (08:53)
[2023-08-04] MEDS: guaiFENesin 600 MG/DEXTROMETHORPHAN 30 MG SR TAB 12 HR 1 TAB PO (08:53)
[2023-08-04] MEDS: AMIODARONE HCL 200 MG TABLET PO (08:53)
[2023-08-04] MEDS: METOPROLOL SUCCINATE EXT REL 50 MG TABCR PO (08:53)
[2023-08-04] MEDS: MAGNESIUM OXIDE 400 MG TABLET PO (08:53)
[2023-08-04] MEDS: KCL 40 MEQ/0.45% NS 1,000 ML 100 ML IV CONT (08:55)
[2023-08-04] MEDS: ONDANSETRON INJ 4 MG/2 ML VIAL IV PUSH ×2 (08:56→21:08)
--- NOTE | 2023-08-04 11:01 | P.PNNP_ITS ---
Progress Note: A&P Assessment and Plan (1) KARINA (acute kidney injury): Code(s): N17.9 - Acute kidney failure, unspecified Status: Acute Assessment and Plan: * mild improvement noted * normal renal function at baseline (at least 7 months ago) * she has bouts of KARINA in the past related to overdiuresis * evaluation to date: * CPK normal * urine electrolytes non-prerenal * renal ultrasound normal * urine eosinophils negative * complements normal - further serologies pending * nephrotic range proteinuria noted... * CRP okay, ESR slightly elevated * etiology not clear -- perhaps related to pneumonia? * diuretics on hold * s/p trial of IVFs with minimal improvement in creatinine * follow repeat labs and UOP (2) Hypokalemia: Code(s): E87.6 - Hypokalemia Status: Acute Assessment and Plan: * improved if not stable * presumably due to scheduled lasix/loop diuretics WITHOUT K+ supplementation * K+ repletion as needed * follow trend of K+ (3) Pneumonia: Code(s): J18.9 - Pneumonia, unspecified organism Status: Acute Assessment and Plan: * suggestive by 08/02 CXR * follow cultures data * on antibiotics (4) HTN (hypertension): Qualifiers: Hypertension type: primary hypertension Qualified Code(s): I10 - Essential (primary) hypertension Code(s): I10 - Essential (primary) hypertension Status: Chronic Assessment and Plan: * reasonable control at this time * follow trend of hemodynamics (5) Obstructive sleep apnea: Code(s): G47.33 - Obstructive sleep apnea (adult) (pediatric) Status: Chronic Assessment and Plan: * continue use of CPAP Will continue to follow. Subjective Date/time seen: 08/04/23 11:01 Interval history: Follow-up for acute kidney injury/acute renal failure and hypokalemia. No further nausea or vomiting noted at this time; potassium has remained stable by trend of labs; renal function a bit better but still not back to baseline; no other issues/events overnight or earlier this morning; no apparent distress. Exam Narrative: General: elderly but WD/WN female in NAD Heart: normal S1 and S2; no rub Lungs: clear to auscultation Abdomen: soft, nontender, nondistended, positive bowel sounds Extremities: no cyanosis or clubbing; no edema Skin: warm and intact Objective Data Vital Signs Vital Signs: Vital Signs Temp Pulse Resp BP Pulse Ox O2 Del Method 08/04/23 11:00 74 Room Air 08/04/23 09:00 78 08/04/23 08:45 Room Air 08/04/23 04:00 75 08/04/23 04:23 97.8 F 82 18 117/57 L 95 08/04/23 00:00 76 08/03/23 20:00 78 08/03/23 20:16 Room Air 08/03/23 21:01 98.6 F 83 15 121/62 94 08/03/23 16:00 81 Intake/Output Intake/Output: Intake & Output 08/01/23 08/02/23 08/03/23 08/04/23 23:59 23:59 23:59 23:59 Intake Total 1100 1850 3390 1390 Output Total 950 2500 300 Balance 1100 341 279 3227 Meds/Results Medications: Active Medications Generic Name Dose Route Start Last Admin Trade Name Freq PRN Reason Stop Dose Admi
--- NOTE | 2023-08-04 11:01 | PM.PNNEP ---
Progress Note: A&P Assessment and Plan (1) KARINA (acute kidney injury): Code(s): N17.9 - Acute kidney failure, unspecified Status: Acute Assessment and Plan: mild improvement noted normal renal function at baseline (at least 7 months ago) she has bouts of KARINA in the past related to overdiuresis evaluation to date: CPK normal urine electrolytes non-prerenal renal ultrasound normal urine eosinophils negative complements normal - further serologies pending nephrotic range proteinuria noted... CRP okay, ESR slightly elevated etiology not clear -- perhaps related to pneumonia? diuretics on hold s/p trial of IVFs with minimal improvement in creatinine follow repeat labs and UOP (2) Hypokalemia: Code(s): E87.6 - Hypokalemia Status: Acute Assessment and Plan: improved if not stable presumably due to scheduled lasix/loop diuretics WITHOUT K+ supplementation K+ repletion as needed follow trend of K+ (3) Pneumonia: Code(s): J18.9 - Pneumonia, unspecified organism Status: Acute Assessment and Plan: suggestive by 08/02 CXR follow cultures data on antibiotics (4) HTN (hypertension): Qualifiers: Hypertension type: primary hypertension Qualified Code(s): I10 - Essential (primary) hypertension Code(s): I10 - Essential (primary) hypertension Status: Chronic Assessment and Plan: reasonable control at this time follow trend of hemodynamics (5) Obstructive sleep apnea: Code(s): G47.33 - Obstructive sleep apnea (adult) (pediatric) Status: Chronic Assessment and Plan: continue use of CPAP Will continue to follow. Subjective Date/time seen: 08/04/23 11:01 Interval history: Follow-up for acute kidney injury/acute renal failure and hypokalemia. No further nausea or vomiting noted at this time; potassium has remained stable by trend of labs; renal function a bit better but still not back to baseline; no other issues/events overnight or earlier this morning; no apparent distress. Exam Narrative: General: elderly but WD/WN female in NAD Heart: normal S1 and S2; no rub Lungs: clear to auscultation Abdomen: soft, nontender, nondistended, positive bowel sounds Extremities: no cyanosis or clubbing; no edema Skin: warm and intact Objective Data Vital Signs Vital Signs: Vital Signs Temp Pulse Resp BP Pulse Ox O2 Del Method 08/04/23 11:00 74 Room Air 08/04/23 09:00 78 08/04/23 08:45 Room Air 08/04/23 04:00 75 08/04/23 04:23 97.8 F 82 18 117/57 L 95 08/04/23 00:00 76 08/03/23 20:00 78 08/03/23 20:16 Room Air 08/03/23 21:01 98.6 F 83 15 121/62 94 08/03/23 16:00 81 Intake/Output Intake/Output: Intake & Output 08/01/23 08/02/23 08/03/23 08/04/23 23:59 23:59 23:59 23:59 Intake Total 1100 1850 3390 1390 Output Total 950 2500 300 Balance 1100 836 679 7258 Meds/Results Medications: Active Medications Generic Name Dose Route Start Last Admin Trade Name Freq PRN Reason Stop Dose Admin Allopurinol 200 mg 08/02/23 09:00 08/03/23 08:29 Allopurinol 100 Mg Tablet PO Not Given DAILY CARROLL Alprazolam 0.25 mg 08/01/23 23:07 Alprazolam (*Crx) 0.25 Mg Tablet PO TID PRN Anxiety Amiodarone HCl 200 mg 08/02/23 09:00 08/04/23 08:53 Amiodarone Hcl 200 Mg Tablet PO 200 mg DAILY CARROLL Administration Amlodipine Besylate 10 mg 08/02/23 09:00 08/04/23 08:53 Amlodipine Besylate 5 Mg Tablet PO 10 mg QAM CARROLL Administration Apixaban 5 mg 08/01/23 23:35 08/04/23 08:53 Apixaban 5 Mg Tablet PO 5 mg Q12HR CARROLL Administration Dextrose 12.5 gm 08/01/23 18:33 Dextrose 50% 25 Gm/50 Ml Syringe IV PUSH PRN PRN Hypoglycemia Protocol Gabapentin 300 mg 08/01/23 23:40 08/04/23 08:53 Gabapentin 300 Mg Capsule PO 300 mg Q12
[2023-08-04 12:10] LABS: Glucose Point of Care 105 mg/dl (65-105)
[2023-08-04 16:57] LABS: Glucose Point of Care 98 mg/dl (65-105)
[2023-08-04] MEDS: MELATONIN 3 MG TABLET 6 MG PO (21:08)
[2023-08-05] VITALS (12 sets, daily range): BP systolic 114–125; BP diastolic 52–88; PULSE 77–130; RESP 17–20; TEMP 36.8–37.2; O2SAT 91–94
[2023-08-05 00:35] LABS: Glucose Point of Care 161 mg/dl (65-105)
[2023-08-05] MEDS: ACETAMINOPHEN 325 MG TABLET 650 MG PO (04:54)
[2023-08-05 05:51] LABS: Basophils Percent Auto 0.3 % (0.2-1.2); Eosinophils Absolute Auto 0.1 K/mm3 (0-0.3); Eosinophils Percent Auto 0.5 % (0-4.4); Hematocrit 35.4 % (37.0-47.0); Hemoglobin 11.7 g/dL (12.0-15.0); Immature Granulocyte Absolute 0.08 K/mm3 (0.00-0.031); Immature Granulocyte Percent A 0.6 % (0-0.5); Lymphocytes Absolute Auto 1.07 K/mm3 (0.9-3.2); Lymphocytes Percent Auto 8.3 % (18.3-44.2); Mean Corpuscular HGB Conc 33.1 g/dl (32-36); Mean Corpuscular Hemoglobin 30.9 pg (26-34); Mean Corpuscular Volume 93.4 fl (80-100); Mean Platelet Volume 11.3 fl (7.4-10.4); Monocytes Absolute Auto 0.8 K/mm3 (0.1-0.6); Monocytes Percent Auto 6.2 % (2.6-8.5); Neutrophils Absolute Auto 10.8 K/mm3 (1.3-6.7); Neutrophils Percent Auto 84.1 % (45.5-73.1); Platelet Count Result 331 k/mm3 (150-375); Red Blood Count 3.79 M/mm3 (4.2-5.4); Red Cell Distribution Width 14.7 % (11.5-14.5); White Blood Count 12.9 K/mm3 (4.5-10.0)
[2023-08-05 06:08] LABS: Anion Gap 12 mmol/L (8-16); Blood Urea Nitrogen 12 mg/dL (7-17); Calcium 8.9 mg/dL (8.4-10.2); Carbon Dioxide 20 mmol/L (22-30); Chloride 105 mmol/L (98-107); Estimated CRCL calculation 30 ml/min; Estimated Glomerular Filt Rate 34; Glucose 135 mg/dL (65-110); Potassium 3.1 mmol/L (3.4-5.0); Sodium 137 mmol/L (137-145)
[2023-08-05 08:11] LABS: Glucose Point of Care 131 mg/dl (65-105)
[2023-08-05] MEDS: ROSUVASTATIN 10 MG TABLET 40 MG PO (08:48)
[2023-08-05] MEDS: APIXABAN 5 MG TABLET PO ×2 (08:48→20:46)
[2023-08-05] MEDS: MAGNESIUM OXIDE 400 MG TABLET PO (08:48)
[2023-08-05] MEDS: CHOLECALCIFEROL 1,000 UNITS TABLET 5000 UNITS PO (08:49)
[2023-08-05] MEDS: PANTOPRAZOLE 40 MG TABLET PO (08:49)
[2023-08-05] MEDS: GABAPENTIN 300 MG CAPSULE PO ×2 (08:50→20:46)
[2023-08-05] MEDS: AMIODARONE HCL 200 MG TABLET PO (08:50)
[2023-08-05] MEDS: POTASSIUM CHLORIDE 20 MEQ PACKET (FOR LIQUID) 40 MEQ PO (08:50)
[2023-08-05] MEDS: METOPROLOL SUCCINATE EXT REL 50 MG TABCR PO (08:50)
[2023-08-05] MEDS: amLODIPine BESYLATE 5 MG TABLET PO (08:51)
--- NOTE | 2023-08-05 11:14 | ECG_ITS ---
Measurements Intervals [place] Rate: 77 P: -36 MT: 145 QRS: 62 QRSD: 91 T: 26 QT: 406 QTc: 460 Interpretive Statements SINUS OR ECTOPIC ATRIAL RHYTHM BASELINE ARTIFACT- I, II, III, AVR BORDERLINE ECG COMPARED TO ECG 08/01/2023 11:11:02 NO SIGNIFICANT CHANGES Electronically Signed On 08-05-2023 14:28:48 STRATEGY ANALYST by Arnulfo Willingham D.O.
[2023-08-05 12:06] LABS: Glucose Point of Care 119 mg/dl (65-105)
--- NOTE | 2023-08-05 12:32 | PM.PNNEP ---
Progress Note: A&P Assessment and Plan (1) KARINA (acute kidney injury): Code(s): N17.9 - Acute kidney failure, unspecified Status: Acute Assessment and Plan: slow improvement noted normal renal function at baseline (at least 7 months ago) she has bouts of KARINA in the past related to overdiuresis evaluation to date: CPK normal urine electrolytes non-prerenal renal ultrasound normal urine eosinophils negative complements normal - further serologies pending nephrotic range proteinuria noted... CRP okay, ESR slightly elevated etiology not clear -- perhaps related to pneumonia... diuretics on hold s/p trial of IVFs with minimal improvement in creatinine follow repeat labs and UOP (2) Hypokalemia: Code(s): E87.6 - Hypokalemia Status: Acute Assessment and Plan: improved if not stable presumably due to scheduled lasix/loop diuretics WITHOUT K+ supplementation K+ repletion as needed follow trend of K+ (3) Pneumonia: Code(s): J18.9 - Pneumonia, unspecified organism Status: Acute Assessment and Plan: suggestive by 08/02 CXR follow cultures data on antibiotics (4) HTN (hypertension): Qualifiers: Hypertension type: primary hypertension Qualified Code(s): I10 - Essential (primary) hypertension Code(s): I10 - Essential (primary) hypertension Status: Chronic Assessment and Plan: reasonable control at this time follow trend of hemodynamics (5) Obstructive sleep apnea: Code(s): G47.33 - Obstructive sleep apnea (adult) (pediatric) Status: Chronic Assessment and Plan: continue use of CPAP Will continue to follow. Subjective Date/time seen: 08/05/23 12:32 Interval history: Follow-up for acute kidney injury/acute renal failure and hypokalemia. Feels reasonably well as asking about potential discharge at the time of my visit; still has a dry cough but denies any shortness of breath; renal function better and improving very slowly; no apparent distress noted; no events overnight or earlier today. Exam Narrative: General: elderly but WD/WN female in NAD Heart: normal S1 and S2; no rub Lungs: clear to auscultation Abdomen: soft, nontender, nondistended, positive bowel sounds Extremities: no cyanosis or clubbing; no edema Skin: no rash Objective Data Vital Signs Vital Signs: Vital Signs Temp Pulse Resp BP Pulse Ox O2 Del Method 08/05/23 12:04 77 08/05/23 08:00 117 H 08/05/23 08:51 130 H 20 93 Room Air 08/05/23 08:50 130 H 08/05/23 08:50 130 H 08/05/23 04:00 82 08/05/23 04:32 98.2 F 89 20 125/60 93 08/05/23 00:00 81 08/04/23 20:00 79 08/04/23 20:55 Room Air 08/04/23 20:32 99.3 F 86 20 129/58 L 98 Intake/Output Intake/Output: Intake & Output 08/02/23 08/03/23 08/04/23 08/05/23 23:59 23:59 23:59 23:59 Intake Total 1850 3390 2420 802 Output Total 950 2500 1900 1000 Balance 900 890 520 -198 Meds/Results Medications: Active Medications Generic Name Dose Route Start Last Admin Trade Name Freq PRN Reason Stop Dose Admin Acetaminophen 650 mg 08/05/23 04:44 08/05/23 04:54 Acetaminophen 325 Mg Tablet PO 650 mg Q6H PRN Administration Mild Pain (1-3) or Fever Allopurinol 200 mg 08/02/23 09:00 08/03/23 08:29 Allopurinol 100 Mg Tablet PO Not Given DAILY CARROLL Alprazolam 0.25 mg 08/01/23 23:07 Alprazolam (*Crx) 0.25 Mg Tablet PO TID PRN Anxiety Amiodarone HCl 200 mg 08/02/23 09:00 08/05/23 08:50 Amiodarone Hcl 200 Mg Tablet PO 200 mg DAILY CARROLL Administration Amlodipine Besylate 5 mg 08/05/23 09:00 08/05/23 08:51 Amlodipine Besylate 5 Mg Tablet PO 5 mg QAM CARROLL Administration Apixaban 5 mg 08/01/23 23:35 08/05/23 08:48 Apixaban 5 Mg Tablet PO 5 mg Q12HR CARROLL Administration Dextrose 12.5 gm
--- NOTE | 2023-08-05 12:32 | P.PNNP_ITS ---
Progress Note: A&P Assessment and Plan (1) KARINA (acute kidney injury): Code(s): N17.9 - Acute kidney failure, unspecified Status: Acute Assessment and Plan: * slow improvement noted * normal renal function at baseline (at least 7 months ago) * she has bouts of KARINA in the past related to overdiuresis * evaluation to date: * CPK normal * urine electrolytes non-prerenal * renal ultrasound normal * urine eosinophils negative * complements normal - further serologies pending * nephrotic range proteinuria noted... * CRP okay, ESR slightly elevated * etiology not clear -- perhaps related to pneumonia... * diuretics on hold * s/p trial of IVFs with minimal improvement in creatinine * follow repeat labs and UOP (2) Hypokalemia: Code(s): E87.6 - Hypokalemia Status: Acute Assessment and Plan: * improved if not stable * presumably due to scheduled lasix/loop diuretics WITHOUT K+ supplementation * K+ repletion as needed * follow trend of K+ (3) Pneumonia: Code(s): J18.9 - Pneumonia, unspecified organism Status: Acute Assessment and Plan: * suggestive by 08/02 CXR * follow cultures data * on antibiotics (4) HTN (hypertension): Qualifiers: Hypertension type: primary hypertension Qualified Code(s): I10 - Essential (primary) hypertension Code(s): I10 - Essential (primary) hypertension Status: Chronic Assessment and Plan: * reasonable control at this time * follow trend of hemodynamics (5) Obstructive sleep apnea: Code(s): G47.33 - Obstructive sleep apnea (adult) (pediatric) Status: Chronic Assessment and Plan: * continue use of CPAP Will continue to follow. Subjective Date/time seen: 08/05/23 12:32 Interval history: Follow-up for acute kidney injury/acute renal failure and hypokalemia. Feels reasonably well as asking about potential discharge at the time of my visit; still has a dry cough but denies any shortness of breath; renal function better and improving very slowly; no apparent distress noted; no events overnight or earlier today. Exam Narrative: General: elderly but WD/WN female in NAD Heart: normal S1 and S2; no rub Lungs: clear to auscultation Abdomen: soft, nontender, nondistended, positive bowel sounds Extremities: no cyanosis or clubbing; no edema Skin: no rash Objective Data Vital Signs Vital Signs: Vital Signs Temp Pulse Resp BP Pulse Ox O2 Del Method 08/05/23 12:04 77 08/05/23 08:00 117 H 08/05/23 08:51 130 H 20 93 Room Air 08/05/23 08:50 130 H 08/05/23 08:50 130 H 08/05/23 04:00 82 08/05/23 04:32 98.2 F 89 20 125/60 93 08/05/23 00:00 81 08/04/23 20:00 79 08/04/23 20:55 Room Air 08/04/23 20:32 99.3 F 86 20 129/58 L 98 Intake/Output Intake/Output: Intake & Output 08/02/23 08/03/23 08/04/23 08/05/23 23:59 23:59 23:59 23:59 Intake Total 1850 3390 2420 802 Output Total 950 2500 1900 1000 Balance 900 890 520 -198 Meds/Results Medications: Active Medications Generic Name Dose Route Sta
--- NOTE | 2023-08-05 15:03 | P.PNIM_ITS ---
Progress Note: A&P Assessment and Plan (1) Pneumonia: Code(s): J18.9 - Pneumonia, unspecified organism Status: Acute Assessment and Plan: * CXR revealed atelectasis versus PN * continue telemetry monitoring * currently on room air * blood cultures pending * continue azithromycin and ceftriaxone * incentive spirometry every 2 hours * sputum culture pending (2) Obstructive sleep apnea: Code(s): G47.33 - Obstructive sleep apnea (adult) (pediatric) Status: Chronic Assessment and Plan: * continue CPAP overnight * use home settings (3) HTN (hypertension): Qualifiers: Hypertension type: primary hypertension Qualified Code(s): I10 - Essential (primary) hypertension Code(s): I10 - Essential (primary) hypertension Status: Chronic Assessment and Plan: * continue amlodipine (4) Hypokalemia: Code(s): E87.6 - Hypokalemia Status: Acute Assessment and Plan: * K 3.1 this am, continue to replete and monitor * continue hold diuretic (5) KARINA (acute kidney injury): Code(s): N17.9 - Acute kidney failure, unspecified Status: Acute Assessment and Plan: * related to multiple etiologies. no evidence of fluid overload * creatinine is 1.5 today * continue hold Lasix * continue stirct I&0 * Nephrology is following * continue to?monitor renal function. (6) Diabetes mellitus type 2 in obese: Code(s): E11.69 - Type 2 diabetes mellitus with other specified complication; E66.9 - Obesity, unspecified Status: Chronic Assessment and Plan: * hypoglycemia protocol, POC blood glucose ACHS * correct regimen ordered - low dose TIDWM and HS * certified adapted physical educator consulted * will need home medications at d/c and instruction for follow-up with PCP Plan post herpetic neuralgia -Continue home medications gabapentin t.i.d. Home Meds/Chronic Conditions: Gout: ?HOLD?allopurinol 200 mg daily HLD: ?Continue rosuvastatin daily ?Anxiety:? Continue alprazolam t.i.d. p.r.n. AFib/AFlut:? -continue home amiodarone and metoprolol.? Continue anticoagulation, currently on Eliquis 5 mg q.12 hour OTC/supplements:? Continue vitamin D3, magnesium, melatonin.? continue oral potassium. GERD: Continue omeprazole Subjective Date/time seen: 08/05/23 15:03 Interval history: Patient in no acute distress this morning, would like to go home. She is not having any SOB, dry cough occasionally. Her WBC jumped overnight to 12.9, kidney function improving. Would like to monitor potassium and recheck CBC in am prior to sending her home. Review of Systems Review of Systems: All systems reviewed & are unremarkable except as noted in HPI and below Exam Narrative: General: comfortable, no acute distress, average body habitus and well nourished Head: normal to inspection and normocephalic. moist mucous membranes +hearing loss, chronic. relies on lip re ading. Eyes: EOMI, PERRLA Resp: normal respiratory effort, lungs clear to auscultation Cardio: RRR GI: normal bowel sounds Skin: normal color; no wounds small erythematous area just above nasolabial folds bilaterally - r/t CPAP mask fit. Neuro: 5/5 motor strength present throughout, normal sensation abnormal resonance pattern in speech, chronic and r/t hearing deficit. Extrem: normal to inspection, no edema Psych: normal affect. Good insight and judgment, pleasant. Objective Da
--- NOTE | 2023-08-05 15:03 | PM.IMPN ---
Progress Note: A&P Assessment and Plan (1) Pneumonia: Code(s): J18.9 - Pneumonia, unspecified organism Status: Acute Assessment and Plan: CXR revealed atelectasis versus PN continue telemetry monitoring currently on room air blood cultures pending continue azithromycin and ceftriaxone incentive spirometry every 2 hours sputum culture pending (2) Obstructive sleep apnea: Code(s): G47.33 - Obstructive sleep apnea (adult) (pediatric) Status: Chronic Assessment and Plan: continue CPAP overnight use home settings (3) HTN (hypertension): Qualifiers: Hypertension type: primary hypertension Qualified Code(s): I10 - Essential (primary) hypertension Code(s): I10 - Essential (primary) hypertension Status: Chronic Assessment and Plan: continue amlodipine (4) Hypokalemia: Code(s): E87.6 - Hypokalemia Status: Acute Assessment and Plan: K 3.1 this am, continue to replete and monitor continue hold diuretic (5) KARINA (acute kidney injury): Code(s): N17.9 - Acute kidney failure, unspecified Status: Acute Assessment and Plan: related to multiple etiologies. no evidence of fluid overload creatinine is 1.5 today continue hold Lasix continue stirct I&0 Nephrology is following continue to?monitor renal function. (6) Diabetes mellitus type 2 in obese: Code(s): E11.69 - Type 2 diabetes mellitus with other specified complication; E66.9 - Obesity, unspecified Status: Chronic Assessment and Plan: hypoglycemia protocol, POC blood glucose ACHS correct regimen ordered - low dose TIDWM and HS nutrition educator consulted will need home medications at d/c and instruction for follow-up with PCP Plan post herpetic neuralgia -Continue home medications gabapentin t.i.d. Home Meds/Chronic Conditions: Gout: ?HOLD?allopurinol 200 mg daily HLD: ?Continue rosuvastatin daily ?Anxiety:? Continue alprazolam t.i.d. p.r.n. AFib/AFlut:? -continue home amiodarone and metoprolol.? Continue anticoagulation, currently on Eliquis 5 mg q.12 hour OTC/supplements:? Continue vitamin D3, magnesium, melatonin.? continue oral potassium. GERD: Continue omeprazole Subjective Date/time seen: 08/05/23 15:03 Interval history: Patient in no acute distress this morning, would like to go home. She is not having any SOB, dry cough occasionally. Her WBC jumped overnight to 12.9, kidney function improving. Would like to monitor potassium and recheck CBC in am prior to sending her home. Review of Systems Review of Systems: All systems reviewed & are unremarkable except as noted in HPI and below Exam Narrative: General: comfortable, no acute distress, average body habitus and well nourished Head: normal to inspection and normocephalic. moist mucous membranes +hearing loss, chronic. relies on lip reading. Eyes: EOMI, PERRLA Resp: normal respiratory effort, lungs clear to auscultation Cardio: RRR GI: normal bowel sounds Skin: normal color; no wounds small erythematous area just above nasolabial folds bilaterally - r/t CPAP mask fit. Neuro: 5/5 motor strength present throughout, normal sensation abnormal resonance pattern in speech, chronic and r/t hearing deficit. Extrem: normal to inspection, no edema Psych: normal affect. Good insight and judgment, pleasant. Objective Data Vital Signs Vital Signs: Vital Signs - 24 hr 08/04/23 16:00 08/04/23 20:32 08/04/23 20:55 Temperature 99.3 F Pulse Rate 73 86 Respiratory Rate 20 Blood Pressure 129/58 L Pulse Oximetry 98 Oxygen Delivery Room Air 08/04/23 20:00 08/05/23 00:00 08/05/23 04:32 Temperature 98.2 F Pulse Rate 79 81 89 Respiratory Rate 20 Blood Pressure 125/60 Pulse Oximetry 93 Oxygen Delivery 08/05/23 04:00 08/05/23 08:50 08/05/23 08:50 Temperature Pulse Rate 82 130 H 130 H Respiratory Rate Blood P
[2023-08-05 16:52] LABS: Glucose Point of Care 107 mg/dl (65-105)
[2023-08-05 20:37] LABS: Glucose Point of Care 153 mg/dl (65-105)
[2023-08-05] MEDS: MELATONIN 3 MG TABLET 6 MG PO (20:46)
[2023-08-05 21:36] LABS: ANCA Screen Negative (Negative)
[2023-08-06] VITALS (16 sets, daily range): BP systolic 100–124; BP diastolic 62–70; PULSE 76–145; RESP 16–20; TEMP 36.2–37.5; O2SAT 95–99
[2023-08-06] MEDS: METOPROLOL TARTRATE INJ 5 MG/5 ML VIAL IV PUSH (01:33)
[2023-08-06] MEDS: SODIUM CHLORIDE 0.9% IV 500 ML IV CONT ×2 (03:32→05:16)
[2023-08-06 06:02] LABS: Basophils Percent Auto 0.3 % (0.2-1.2); Eosinophils Percent Auto 0.2 % (0-4.4); Hematocrit 33.3 % (37.0-47.0); Hemoglobin 11.3 g/dL (12.0-15.0); Immature Granulocyte Absolute 0.05 K/mm3 (0.00-0.031); Immature Granulocyte Percent A 0.6 % (0-0.5); Lymphocytes Absolute Auto 1.05 K/mm3 (0.9-3.2); Mean Corpuscular HGB Conc 33.9 g/dl (32-36); Mean Corpuscular Hemoglobin 31.1 pg (26-34); Mean Corpuscular Volume 91.7 fl (80-100); Mean Platelet Volume 11.4 fl (7.4-10.4); Monocytes Absolute Auto 0.8 K/mm3 (0.1-0.6); Monocytes Percent Auto 9.5 % (2.6-8.5); Neutrophils Absolute Auto 6.8 K/mm3 (1.3-6.7); Neutrophils Percent Auto 77.4 % (45.5-73.1); Platelet Count Result 308 k/mm3 (150-375); Red Blood Count 3.63 M/mm3 (4.2-5.4); Red Cell Distribution Width 14.5 % (11.5-14.5); White Blood Count 8.8 K/mm3 (4.5-10.0)
[2023-08-06 06:08] LABS: Albumin Level 3.3 g/dL (3.5-5.1); Anion Gap 8 mmol/L (8-16); Blood Urea Nitrogen 11 mg/dL (7-17); Calcium 7.9 mg/dL (8.4-10.2); Carbon Dioxide 25 mmol/L (22-30); Chloride 104 mmol/L (98-107); Estimated CRCL calculation 30 ml/min; Estimated Glomerular Filt Rate 34; Glucose 128 mg/dL (65-110); Potassium 3.1 mmol/L (3.4-5.0); Sodium 137 mmol/L (137-145)
[2023-08-06 08:07] LABS: Glucose Point of Care 103 mg/dl (65-105)
[2023-08-06] MEDS: CHOLECALCIFEROL 1,000 UNITS TABLET 5000 UNITS PO (09:14)
[2023-08-06] MEDS: POTASSIUM CHLORIDE 20 MEQ PACKET (FOR LIQUID) 40 MEQ PO ×2 (09:14→16:26)
[2023-08-06] MEDS: MAGNESIUM OXIDE 400 MG TABLET PO (09:15)
[2023-08-06] MEDS: GABAPENTIN 300 MG CAPSULE PO ×2 (09:15→21:12)
[2023-08-06] MEDS: APIXABAN 5 MG TABLET PO ×2 (09:15→21:13)
[2023-08-06] MEDS: AMIODARONE HCL 200 MG TABLET PO (09:15)
[2023-08-06] MEDS: PANTOPRAZOLE 40 MG TABLET PO (09:16)
[2023-08-06] MEDS: METOPROLOL SUCCINATE EXT REL 50 MG TABCR PO (09:16)
[2023-08-06] MEDS: ROSUVASTATIN 10 MG TABLET 40 MG PO (09:16)
[2023-08-06] MEDS: amLODIPine BESYLATE 5 MG TABLET PO (09:16)
[2023-08-06 11:35] LABS: Albumin 3.2 g/dL (3.8-4.8); Alpha 1 Globulin 0.3 g/dL (0.2-0.3); Alpha 2 Globulin 1.1 g/dL (0.5-0.9); Beta 1 Globulin 0.4 g/dL (0.4-0.6); Gamma Globulin 0.7 g/dL (0.8-1.7); Protein, Total 6.1 g/dL (6.1-8.1)
--- NOTE | 2023-08-06 11:35 | P.PNNP_ITS ---
Progress Note: A&P Assessment and Plan (1) KARINA (acute kidney injury): Code(s): N17.9 - Acute kidney failure, unspecified Status: Acute Assessment and Plan: * slow improvement noted * normal renal function at baseline (at least 7 months ago) * she has bouts of KARINA in the past related to overdiuresis * evaluation to date: * CPK normal * urine electrolytes non-prerenal * renal ultrasound normal * urine eosinophils negative * serolgies negative to date (some still pending) * nephrotic range proteinuria noted... * CRP okay, ESR slightly elevated * etiology not clear -- perhaps related to pneumonia... * diuretics on hold * s/p trial of IVFs with minimal improvement in creatinine * follow repeat labs and UOP (2) Hypokalemia: Code(s): E87.6 - Hypokalemia Status: Acute Assessment and Plan: * islowly improvinv * presumably due to scheduled lasix/loop diuretics WITHOUT K+ supplementation * HOWEVER, still running low with diuretics on hold * K+ repletion as needed and scheduled * follow trend of K+ (3) Pneumonia: Code(s): J18.9 - Pneumonia, unspecified organism Status: Acute Assessment and Plan: * suggestive by 08/02 CXR * follow cultures data * on antibiotics (4) HTN (hypertension): Qualifiers: Hypertension type: primary hypertension Qualified Code(s): I10 - Essential (primary) hypertension Code(s): I10 - Essential (primary) hypertension Status: Chronic Assessment and Plan: * reasonable control at this time * follow trend of hemodynamics (5) Obstructive sleep apnea: Code(s): G47.33 - Obstructive sleep apnea (adult) (pediatric) Status: Chronic Assessment and Plan: * continue use of CPAP Will continue to follow. Subjective Date/time seen: 08/06/23 11:35 Interval history: Follow-up for acute kidney injury/acute renal failure and hypokalemia. Issues overnight with increased tachycardia and hypoxia requiring supplemental oxygen; O2 saturation better with supplemental oxygen and received IV metorpolol last night due to increased heart rate; renal function stable at this time but still having issues with hypokalemia. Exam Narrative: General: elderly but WD/WN female in NAD Heart: normal S1 and S2; no rub Lungs: clear to auscultation Abdomen: soft, nontender, nondistended, positive bowel sounds Extremities: no cyanosis or clubbing; no edema Skin: no nodules Objective Data Vital Signs Vital Signs: Vital Signs Temp Pulse Resp BP Pulse Ox O2 Del Method O2 Flow Rate 08/06/23 11:00 99.1 F 135 H 18 100/70 96 08/06/23 08:01 128 H 08/06/23 09:16 130 H 18 95 Nasal Cannula 3 08/06/23 09:16 130 H 08/06/23 09:15 130 H 08/06/23 06:57 99.5 F 125 H 18 109/62 97 08/06/23 04:55 98.3 F 122 H 20 107/62 95 08/06/23 04:00 123 H 08/06/23 03:19 97.1 F L 132 H 20 119/70 97 08/06/23 01:13 127 H 08/06/23 00:00 137 H 08/05/23 20:00 84 08/06/23 01:33 139 H 08/05/23 20:40 94 Nasal Cannula 5 08/05/23 20:51 98.3 F 85 17 117/52 L 91 08/05/23 16:00 77 Intake/Output Intake/Output:
--- NOTE | 2023-08-06 11:35 | PM.PNNEP ---
Progress Note: A&P Assessment and Plan (1) KARINA (acute kidney injury): Code(s): N17.9 - Acute kidney failure, unspecified Status: Acute Assessment and Plan: slow improvement noted normal renal function at baseline (at least 7 months ago) she has bouts of KARINA in the past related to overdiuresis evaluation to date: CPK normal urine electrolytes non-prerenal renal ultrasound normal urine eosinophils negative serolgies negative to date (some still pending) nephrotic range proteinuria noted... CRP okay, ESR slightly elevated etiology not clear -- perhaps related to pneumonia... diuretics on hold s/p trial of IVFs with minimal improvement in creatinine follow repeat labs and UOP (2) Hypokalemia: Code(s): E87.6 - Hypokalemia Status: Acute Assessment and Plan: islowly improvinv presumably due to scheduled lasix/loop diuretics WITHOUT K+ supplementation HOWEVER, still running low with diuretics on hold K+ repletion as needed and scheduled follow trend of K+ (3) Pneumonia: Code(s): J18.9 - Pneumonia, unspecified organism Status: Acute Assessment and Plan: suggestive by 08/02 CXR follow cultures data on antibiotics (4) HTN (hypertension): Qualifiers: Hypertension type: primary hypertension Qualified Code(s): I10 - Essential (primary) hypertension Code(s): I10 - Essential (primary) hypertension Status: Chronic Assessment and Plan: reasonable control at this time follow trend of hemodynamics (5) Obstructive sleep apnea: Code(s): G47.33 - Obstructive sleep apnea (adult) (pediatric) Status: Chronic Assessment and Plan: continue use of CPAP Will continue to follow. Subjective Date/time seen: 08/06/23 11:35 Interval history: Follow-up for acute kidney injury/acute renal failure and hypokalemia. Issues overnight with increased tachycardia and hypoxia requiring supplemental oxygen; O2 saturation better with supplemental oxygen and received IV metorpolol last night due to increased heart rate; renal function stable at this time but still having issues with hypokalemia. Exam Narrative: General: elderly but WD/WN female in NAD Heart: normal S1 and S2; no rub Lungs: clear to auscultation Abdomen: soft, nontender, nondistended, positive bowel sounds Extremities: no cyanosis or clubbing; no edema Skin: no nodules Objective Data Vital Signs Vital Signs: Vital Signs Temp Pulse Resp BP Pulse Ox O2 Del Method O2 Flow Rate 08/06/23 11:00 99.1 F 135 H 18 100/70 96 08/06/23 08:01 128 H 08/06/23 09:16 130 H 18 95 Nasal Cannula 3 08/06/23 09:16 130 H 08/06/23 09:15 130 H 08/06/23 06:57 99.5 F 125 H 18 109/62 97 08/06/23 04:55 98.3 F 122 H 20 107/62 95 08/06/23 04:00 123 H 08/06/23 03:19 97.1 F L 132 H 20 119/70 97 08/06/23 01:13 127 H 08/06/23 00:00 137 H 08/05/23 20:00 84 08/06/23 01:33 139 H 08/05/23 20:40 94 Nasal Cannula 5 08/05/23 20:51 98.3 F 85 17 117/52 L 91 08/05/23 16:00 77 Intake/Output Intake/Output: Intake & Output 08/03/23 08/04/23 08/05/23 08/06/23 23:59 23:59 23:59 23:59 Intake Total 3390 2420 1694 780 Output Total 2500 1900 1600 700 Balance 890 520 94 80 Meds/Results Medications: Active Medications Generic Name Dose Route Start Last Admin Trade Name Freq PRN Reason Stop Dose Admin Acetaminophen 650 mg 08/05/23 04:44 08/05/23 04:54 Acetaminophen 325 Mg Tablet PO 650 mg Q6H PRN Administration Mild Pain (1-3) or Fever Allopurinol 200 mg 08/02/23 09:00 08/03/23 08:29 Allopurinol 100 Mg Tablet PO Not Given DAILY CARROLL Alprazolam 0.25 mg 08/01/23 23:07 Alprazolam (*Crx) 0.25 Mg Tablet PO TID PRN Anxiety Amiodarone HCl 200 mg 08/02/23 09:00 08/06/23
[2023-08-06 11:57] LABS: Glucose Point of Care 122 mg/dl (65-105)
--- NOTE | 2023-08-06 15:26 | P.PNIM_ITS ---
Progress Note: A&P Assessment and Plan (1) Pneumonia: Code(s): J18.9 - Pneumonia, unspecified organism Status: Acute Assessment and Plan: * CXR revealed atelectasis versus PN * continue telemetry monitoring * new 3 L O2 requirement * CT scan chest ordered * blood cultures pending * transitioned to PO Augmentin today * incentive spirometry every 2 hours * sputum culture sample not tested (2) Obstructive sleep apnea: Code(s): G47.33 - Obstructive sleep apnea (adult) (pediatric) Status: Chronic Assessment and Plan: * continue CPAP overnight * use home settings (3) HTN (hypertension): Qualifiers: Hypertension type: primary hypertension Qualified Code(s): I10 - Essential (primary) hypertension Code(s): I10 - Essential (primary) hypertension Status: Chronic Assessment and Plan: * continue amlodipine (4) Hypokalemia: Code(s): E87.6 - Hypokalemia Status: Acute Assessment and Plan: * K 3.1 this am, continue to replete and monitor * continue hold diuretic (5) KARINA (acute kidney injury): Code(s): N17.9 - Acute kidney failure, unspecified Status: Acute Assessment and Plan: * related to multiple etiologies. no evidence of fluid overload * creatinine is 1.5 * continue hold Lasix * continue strict I&0 * Nephrology is following * continue to?monitor renal function. (6) Diabetes mellitus type 2 in obese: Code(s): E11.69 - Type 2 diabetes mellitus with other specified complication; E66.9 - Obesity, unspecified Status: Chronic Assessment and Plan: * hypoglycemia protocol, POC blood glucose ACHS * correct regimen ordered - low dose TIDWM and HS * nurse educator consulted * will need home medications at d/c and instruction for follow-up with PCP Plan post herpetic neuralgia -Continue home medications gabapentin t.i.d. Home Meds/Chronic Conditions: Gout: ?HOLD?allopurinol 200 mg daily HLD: ?Continue rosuvastatin daily ?Anxiety:? Continue alprazolam t.i.d. p.r.n. AFib/AFlut:? -continue home amiodarone and metoprolol.? Continue anticoagulation, currently on Eliquis 5 mg q.12 hour OTC/supplements:? Continue vitamin D3, magnesium, melatonin.? continue oral potassium. GERD: Continue omeprazole Subjective Date/time seen: 08/06/23 15:26 Interval history: Patient in no acute distress this morning, but per nursing report she became tachycardic during the night requiring a dose of IV 5 mg metoprolol. She began to requir oxygen (she is on CPAP at home) but is now on 3L O2 NC since this morning. She is not having any SOB, dry cough occasionally. Her WBC stabilized, kidney function improving. Will order CT given the sudden onset tachycardia and new oxygen requirement. Transitioned to PO Augmentin today. Will continue to monitor and await CT results. Review of Systems Review of Systems: All systems reviewed & are unremarkable except as noted in HPI and below Exam Narrative: General: comfortable, no acute distress, average body habitus and well nourished Head: normal to inspection and normocephalic. moist mucous membranes +hearing loss, chronic. relies on lip re ading. Eyes: EOMI, PERRLA Resp: normal respiratory effort, lungs clear to auscultation Cardio: Reg rhythm, tachycardic GI: normal bowel sounds Skin: normal color; no wounds small erythematous area just above nasolabial folds bilaterally - r/t CP
--- NOTE | 2023-08-06 15:26 | PM.IMPN ---
Progress Note: A&P Assessment and Plan (1) Pneumonia: Code(s): J18.9 - Pneumonia, unspecified organism Status: Acute Assessment and Plan: CXR revealed atelectasis versus PN continue telemetry monitoring new [address] scan chest ordered blood cultures pending transitioned to PO Augmentin today incentive spirometry every 2 hours sputum culture sample not tested (2) Obstructive sleep apnea: Code(s): G47.33 - Obstructive sleep apnea (adult) (pediatric) Status: Chronic Assessment and Plan: continue CPAP overnight use home settings (3) HTN (hypertension): Qualifiers: Hypertension type: primary hypertension Qualified Code(s): I10 - Essential (primary) hypertension Code(s): I10 - Essential (primary) hypertension Status: Chronic Assessment and Plan: continue amlodipine (4) Hypokalemia: Code(s): E87.6 - Hypokalemia Status: Acute Assessment and Plan: K 3.1 this am, continue to replete and monitor continue hold diuretic (5) KARINA (acute kidney injury): Code(s): N17.9 - Acute kidney failure, unspecified Status: Acute Assessment and Plan: related to multiple etiologies. no evidence of fluid overload creatinine is 1.5 continue hold Lasix continue strict I&0 Nephrology is following continue to?monitor renal function. (6) Diabetes mellitus type 2 in obese: Code(s): E11.69 - Type 2 diabetes mellitus with other specified complication; E66.9 - Obesity, unspecified Status: Chronic Assessment and Plan: hypoglycemia protocol, POC blood glucose ACHS correct regimen ordered - low dose TIDWM and HS educator senior clinical consulted will need home medications at d/c and instruction for follow-up with PCP Plan post herpetic neuralgia -Continue home medications gabapentin t.i.d. Home Meds/Chronic Conditions: Gout: ?HOLD?allopurinol 200 mg daily HLD: ?Continue rosuvastatin daily ?Anxiety:? Continue alprazolam t.i.d. p.r.n. AFib/AFlut:? -continue home amiodarone and metoprolol.? Continue anticoagulation, currently on Eliquis 5 mg q.12 hour OTC/supplements:? Continue vitamin D3, magnesium, melatonin.? continue oral potassium. GERD: Continue omeprazole Subjective Date/time seen: 08/06/23 15:26 Interval history: Patient in no acute distress this morning, but per nursing report she became tachycardic during the night requiring a dose of IV 5 mg metoprolol. She began to requir oxygen (she is on CPAP at home) but is now on 3L O2 NC since this morning. She is not having any SOB, dry cough occasionally. Her WBC stabilized, kidney function improving. Will order CT given the sudden onset tachycardia and new oxygen requirement. Transitioned to PO Augmentin today. Will continue to monitor and await CT results. Review of Systems Review of Systems: All systems reviewed & are unremarkable except as noted in HPI and below Exam Narrative: General: comfortable, no acute distress, average body habitus and well nourished Head: normal to inspection and normocephalic. moist mucous membranes +hearing loss, chronic. relies on lip reading. Eyes: EOMI, PERRLA Resp: normal respiratory effort, lungs clear to auscultation Cardio: Reg rhythm, tachycardic GI: normal bowel sounds Skin: normal color; no wounds small erythematous area just above nasolabial folds bilaterally - r/t CPAP mask fit. Neuro: 5/5 motor strength present throughout, normal sensation abnormal resonance pattern in speech, chronic and r/t hearing deficit. Extrem: normal to inspection, no edema Psych: normal affect. Good insight and judgment, pleasant. Objective Data Vital Signs Vital Signs: Vital Signs - 24 hr 08/05/23 16:00 08/05/23 20:51 08/05/23 20:40 Temperature 98.3 F Pulse Rate 77 85 Respiratory Rate 17 Blood Pressure 117/52 L Pulse Oximetry 91 94 Oxygen Delivery Nasal Cannula Oxygen
[2023-08-06 16:33] LABS: Glucose Point of Care 135 mg/dl (65-105)
[2023-08-06 21:10] LABS: Glucose Point of Care 110 mg/dl (65-105)
[2023-08-06] MEDS: MELATONIN 3 MG TABLET 6 MG PO (21:13)
[2023-08-07] VITALS (12 sets, daily range): BP systolic 105–137; BP diastolic 44–68; PULSE 68–93; RESP 16; TEMP 36.6–37.2; O2SAT 92–97
[2023-08-07 01:10] LABS: Anti Glomerular Basement Memb <1.0 AI (<1.0)
[2023-08-07 04:03] LABS: Legionella pneumophila Ag Ur Not Detected (Not Detected)
[2023-08-07 07:15] LABS: Basophils Percent Auto 0.4 % (0.2-1.2); Eosinophils Absolute Auto 0.1 K/mm3 (0-0.3); Eosinophils Percent Auto 1.4 % (0-4.4); Hematocrit 34.4 % (37.0-47.0); Hemoglobin 11.3 g/dL (12.0-15.0); Immature Granulocyte Absolute 0.04 K/mm3 (0.00-0.031); Immature Granulocyte Percent A 0.5 % (0-0.5); Lymphocytes Absolute Auto 1.13 K/mm3 (0.9-3.2); Lymphocytes Percent Auto 13.2 % (18.3-44.2); Mean Corpuscular HGB Conc 32.8 g/dl (32-36); Mean Corpuscular Hemoglobin 30.8 pg (26-34); Mean Corpuscular Volume 93.7 fl (80-100); Mean Platelet Volume 11.4 fl (7.4-10.4); Monocytes Absolute Auto 0.7 K/mm3 (0.1-0.6); Monocytes Percent Auto 8.2 % (2.6-8.5); Neutrophils Absolute Auto 6.5 K/mm3 (1.3-6.7); Neutrophils Percent Auto 76.3 % (45.5-73.1); Platelet Count Result 304 k/mm3 (150-375); Red Blood Count 3.67 M/mm3 (4.2-5.4); Red Cell Distribution Width 14.6 % (11.5-14.5); White Blood Count 8.5 K/mm3 (4.5-10.0)
[2023-08-07 07:39] LABS: Anion Gap 9 mmol/L (8-16); Blood Urea Nitrogen 11 mg/dL (7-17); Calcium 8.3 mg/dL (8.4-10.2); Carbon Dioxide 26 mmol/L (22-30); Chloride 102 mmol/L (98-107); Estimated CRCL calculation 34 ml/min; Estimated Glomerular Filt Rate 40; Glucose 159 mg/dL (65-110); Potassium 3.2 mmol/L (3.4-5.0); Sodium 137 mmol/L (137-145)
[2023-08-07 08:08] LABS: Glucose Point of Care 148 mg/dl (65-105)
[2023-08-07] MEDS: AMIODARONE HCL 200 MG TABLET PO (09:02)
[2023-08-07] MEDS: CHOLECALCIFEROL 1,000 UNITS TABLET 5000 UNITS PO (09:03)
[2023-08-07] MEDS: GABAPENTIN 300 MG CAPSULE PO ×2 (09:03→20:01)
[2023-08-07] MEDS: AMOXICILLIN/CLAVULANATE K 875-125 MG TAB 1 TABLET PO ×2 (09:03→20:01)
[2023-08-07] MEDS: APIXABAN 5 MG TABLET PO ×2 (09:03→20:01)
[2023-08-07] MEDS: MAGNESIUM OXIDE 400 MG TABLET PO (09:03)
[2023-08-07] MEDS: METOPROLOL SUCCINATE EXT REL 50 MG TABCR PO (09:03)
[2023-08-07] MEDS: POTASSIUM CHLORIDE 20 MEQ PACKET (FOR LIQUID) 40 MEQ PO ×2 (09:04→16:26)
[2023-08-07] MEDS: ROSUVASTATIN 10 MG TABLET 40 MG PO (09:04)
[2023-08-07] MEDS: PANTOPRAZOLE 40 MG TABLET PO (09:04)
[2023-08-07] MEDS: ZINC OXIDE 20% OINT 30 GM TUBE 1 APPLIC TOPICAL (09:09)
[2023-08-07 11:21] LABS: Kappa\\Lambda Light Chains 1.57 (0.26-1.65); Lambda Light Chain 15.9 mg/L (5.7-26.3)
[2023-08-07] MEDS: FUROSEMIDE 20 MG TABLET PO (11:31)
[2023-08-07 12:32] LABS: Glucose Point of Care 145 mg/dl (65-105)
--- NOTE | 2023-08-07 13:44 | P.PNIM_ITS ---
Progress Note: A&P Assessment and Plan (1) Pneumonia: Code(s): J18.9 - Pneumonia, unspecified organism Status: Acute Assessment and Plan: * CXR revealed atelectasis versus PN * continue telemetry monitoring * new 3 L O2 requirement, work to wean but may need home O2 eval prior to d/c if unable * CT scan chest negative for PE, consistent with pneumonia * blood cultures pending * continue Augmentin * incentive spirometry every 2 hours * sputum culture sample not tested (2) Obstructive sleep apnea: Code(s): G47.33 - Obstructive sleep apnea (adult) (pediatric) Status: Chronic Assessment and Plan: * continue CPAP overnight * use home settings (3) HTN (hypertension): Qualifiers: Hypertension type: primary hypertension Qualified Code(s): I10 - Essential (primary) hypertension Code(s): I10 - Essential (primary) hypertension Status: Chronic Assessment and Plan: * continue amlodipine (4) Hypokalemia: Code(s): E87.6 - Hypokalemia Status: Acute Assessment and Plan: * K 3.2 today, continue to replete and monitor * given 1 dose of 20 mg PO Lasix due to wheezes on exam and oxygen requirement (5) KARINA (acute kidney injury): Code(s): N17.9 - Acute kidney failure, unspecified Status: Acute Assessment and Plan: * related to multiple etiologies. no evidence of fluid overload * creatinine is 1.3, eGFR 40 * continue hold Lasix but given 1 dose of 20 mg PO Lasix due to wheezes on exam and oxygen requirement * continue strict I&0 * Nephrology is following * continue to?monitor renal function. (6) Diabetes mellitus type 2 in obese: Code(s): E11.69 - Type 2 diabetes mellitus with other specified complication; E66.9 - Obesity, unspecified Status: Chronic Assessment and Plan: * hypoglycemia protocol, POC blood glucose ACHS * correct regimen ordered - low dose TIDWM and HS * nursing educator consulted * will need home medications at d/c and instruction for follow-up with PCP Plan post herpetic neuralgia -Continue home medications gabapentin t.i.d. Home Meds/Chronic Conditions: Gout: ?HOLD?allopurinol 200 mg daily HLD: ?Continue rosuvastatin daily ?Anxiety:? Continue alprazolam t.i.d. p.rKeminKemi AFib/AFlut:? -continue home amiodarone and metoprolol.? Continue anticoagulation, currently on Eliquis 5 mg q.12 hour OTC/supplements:? Continue vitamin D3, magnesium, melatonin.? continue oral potassium. GERD: Continue omeprazole Subjective Date/time seen: 08/07/23 13:44 Interval history: Patient in no acute distress this morning, CT scan yesterday negative for PE, consistent with pneumonia. She continues to require oxygen at 3L O2 NC. Will work to wean, but may need home O2 eval if unable. She is not having any SOB, dry cough occasionally. Her lungs sounded wheezy on exam, gave 1 dose of 20 mg Lasix today as we have been holding due to her hypokalemia. Her WBC stabilized, kidney function improving. Continue Augmentin. Review of Systems Review of Systems: All systems reviewed & are unremarkable except as noted in HPI and below Exam Narrative: General: comfortable, no acute distress, average body habitus and well nourished Head: normal to inspection and normocephalic. moist mucous membranes +hearing loss, chronic. relies on lip re ading. Eyes: EOMI, PERRLA Resp: normal respiratory effort, lungs clear to auscultation Cardio:
--- NOTE | 2023-08-07 13:44 | PM.IMPN ---
Progress Note: A&P Assessment and Plan (1) Pneumonia: Code(s): J18.9 - Pneumonia, unspecified organism Status: Acute Assessment and Plan: CXR revealed atelectasis versus PN continue telemetry monitoring new 3 L O2 requirement, work to wean but may need home O2 eval prior to d/c if unable CT scan chest negative for PE, consistent with pneumonia blood cultures pending continue Augmentin incentive spirometry every 2 hours sputum culture sample not tested (2) Obstructive sleep apnea: Code(s): G47.33 - Obstructive sleep apnea (adult) (pediatric) Status: Chronic Assessment and Plan: continue CPAP overnight use home settings (3) HTN (hypertension): Qualifiers: Hypertension type: primary hypertension Qualified Code(s): I10 - Essential (primary) hypertension Code(s): I10 - Essential (primary) hypertension Status: Chronic Assessment and Plan: continue amlodipine (4) Hypokalemia: Code(s): E87.6 - Hypokalemia Status: Acute Assessment and Plan: K 3.2 today, continue to replete and monitor given 1 dose of 20 mg PO Lasix due to wheezes on exam and oxygen requirement (5) KARINA (acute kidney injury): Code(s): N17.9 - Acute kidney failure, unspecified Status: Acute Assessment and Plan: related to multiple etiologies. no evidence of fluid overload creatinine is 1.3, eGFR 40 continue hold Lasix but given 1 dose of 20 mg PO Lasix due to wheezes on exam and oxygen requirement continue strict I&0 Nephrology is following continue to?monitor renal function. (6) Diabetes mellitus type 2 in obese: Code(s): E11.69 - Type 2 diabetes mellitus with other specified complication; E66.9 - Obesity, unspecified Status: Chronic Assessment and Plan: hypoglycemia protocol, POC blood glucose ACHS correct regimen ordered - low dose TIDWM and HS elementary educator consulted will need home medications at d/c and instruction for follow-up with PCP Plan post herpetic neuralgia -Continue home medications gabapentin t.i.d. Home Meds/Chronic Conditions: Gout: ?HOLD?allopurinol 200 mg daily HLD: ?Continue rosuvastatin daily ?Anxiety:? Continue alprazolam t.i.d. p.r.n. AFib/AFlut:? -continue home amiodarone and metoprolol.? Continue anticoagulation, currently on Eliquis 5 mg q.12 hour OTC/supplements:? Continue vitamin D3, magnesium, melatonin.? continue oral potassium. GERD: Continue omeprazole Subjective Date/time seen: 08/07/23 13:44 Interval history: Patient in no acute distress this morning, CT scan yesterday negative for PE, consistent with pneumonia. She continues to require oxygen at 3L O2 NC. Will work to wean, but may need home O2 eval if unable. She is not having any SOB, dry cough occasionally. Her lungs sounded wheezy on exam, gave 1 dose of 20 mg Lasix today as we have been holding due to her hypokalemia. Her WBC stabilized, kidney function improving. Continue Augmentin. Review of Systems Review of Systems: All systems reviewed & are unremarkable except as noted in HPI and below Exam Narrative: General: comfortable, no acute distress, average body habitus and well nourished Head: normal to inspection and normocephalic. moist mucous membranes +hearing loss, chronic. relies on lip reading. Eyes: EOMI, PERRLA Resp: normal respiratory effort, lungs clear to auscultation Cardio: Reg rhythm, tachycardic GI: normal bowel sounds Skin: normal color; no wounds small erythematous area just above nasolabial folds bilaterally - r/t CPAP mask fit. Neuro: 5/5 motor strength present throughout, normal sensation abnormal resonance pattern in speech, chronic and r/t hearing deficit. Extrem: normal to inspection, no edema Psych: normal affect. Good insight and judgment, pleasant. Objective Data Vital Signs Vital Signs: Vital Signs - 24 hr 08/06/23 14:00 08/06/23 16:01 08/06/23 2
--- NOTE | 2023-08-07 14:15 | P.PNNP_ITS ---
Progress Note: A&P Assessment and Plan (1) KARINA (acute kidney injury): Code(s): N17.9 - Acute kidney failure, unspecified Status: Acute Assessment and Plan: * slow improvement noted * normal renal function at baseline (at least 7 months ago) * she has bouts of KARINA in the past related to overdiuresis * evaluation to date: * CPK normal * urine electrolytes non-prerenal * renal ultrasound normal * urine eosinophils negative * serolgies negative to date (some still pending) * nephrotic range proteinuria noted... * CRP okay, ESR slightly elevated * etiology not clear -- perhaps related to pneumonia... * diuretics PRN * s/p trial of IVFs with minimal improvement in creatinine * follow repeat labs and UOP (2) Hypokalemia: Code(s): E87.6 - Hypokalemia Status: Acute Assessment and Plan: * slowly improving * presumably due to scheduled lasix/loop diuretics WITHOUT K+ supplementation * HOWEVER, still running low with diuretics on hold * K+ repletion as needed and scheduled * follow trend of K+ (3) Pneumonia: Code(s): J18.9 - Pneumonia, unspecified organism Status: Acute Assessment and Plan: * suggestive by 08/02 CXR an confirmed by recent CT scan * follow cultures data * on antibiotics (4) HTN (hypertension): Qualifiers: Hypertension type: primary hypertension Qualified Code(s): I10 - Essential (primary) hypertension Code(s): I10 - Essential (primary) hypertension Status: Chronic Assessment and Plan: * reasonable control at this time * follow trend of hemodynamics (5) Obstructive sleep apnea: Code(s): G47.33 - Obstructive sleep apnea (adult) (pediatric) Status: Chronic Assessment and Plan: * continue use of CPAP Will continue to follow. Subjective Date/time seen: 08/07/23 14:15 Interval history: Follow-up for acute kidney injury/acute renal failure and hypokalemia. Respiratory status seems better at the time of my visit; CT of chest done yesterday negative for PE but confirmed pneumonia; renal function continues to improve; denies shortness of breath but requiring supplemental oxygen.. Exam Narrative: General: elderly but WD/WN female in NAD Heart: normal S1 and S2; no rub Lungs: coarse at bases Abdomen: soft, nontender, nondistended, positive bowel sounds Extremities: no cyanosis or clubbing; no edema Skin: warm and dry Objective Data Vital Signs Vital Signs: Vital Signs Temp Pulse Resp BP Pulse Ox O2 Del Method O2 Flow Rate 08/07/23 14:00 99 F 77 16 116/52 L 97 08/07/23 12:00 74 08/07/23 08:00 73 08/07/23 08:00 94 Nasal Cannula 3 08/07/23 09:05 116/44 L 08/07/23 09:02 78 08/07/23 04:00 68 08/07/23 05:12 98.4 F 93 16 105/54 L 94 08/07/23 00:00 68 08/06/23 21:03 99 Nasal Cannula 3 08/06/23 20:00 145 H 08/06/23 20:58 97.8 F 76 16 124/65 99 08/06/23 16:01 130 H Intake/Output Intake/Output: Intake & Output 08/04/23 08/05/23 08/06/23 08/07/23 23:59 23:59 23:59 23:59 Intake Total 2420 1694 1320 910 Output Total 1900 1600 1900 1600
--- NOTE | 2023-08-07 14:15 | PM.PNNEP ---
Progress Note: A&P Assessment and Plan (1) KARINA (acute kidney injury): Code(s): N17.9 - Acute kidney failure, unspecified Status: Acute Assessment and Plan: slow improvement noted normal renal function at baseline (at least 7 months ago) she has bouts of KARINA in the past related to overdiuresis evaluation to date: CPK normal urine electrolytes non-prerenal renal ultrasound normal urine eosinophils negative serolgies negative to date (some still pending) nephrotic range proteinuria noted... CRP okay, ESR slightly elevated etiology not clear -- perhaps related to pneumonia... diuretics PRN s/p trial of IVFs with minimal improvement in creatinine follow repeat labs and UOP (2) Hypokalemia: Code(s): E87.6 - Hypokalemia Status: Acute Assessment and Plan: slowly improving presumably due to scheduled lasix/loop diuretics WITHOUT K+ supplementation HOWEVER, still running low with diuretics on hold K+ repletion as needed and scheduled follow trend of K+ (3) Pneumonia: Code(s): J18.9 - Pneumonia, unspecified organism Status: Acute Assessment and Plan: suggestive by 08/02 CXR an confirmed by recent CT scan follow cultures data on antibiotics (4) HTN (hypertension): Qualifiers: Hypertension type: primary hypertension Qualified Code(s): I10 - Essential (primary) hypertension Code(s): I10 - Essential (primary) hypertension Status: Chronic Assessment and Plan: reasonable control at this time follow trend of hemodynamics (5) Obstructive sleep apnea: Code(s): G47.33 - Obstructive sleep apnea (adult) (pediatric) Status: Chronic Assessment and Plan: continue use of CPAP Will continue to follow. Subjective Date/time seen: 08/07/23 14:15 Interval history: Follow-up for acute kidney injury/acute renal failure and hypokalemia. Respiratory status seems better at the time of my visit; CT of chest done yesterday negative for PE but confirmed pneumonia; renal function continues to improve; denies shortness of breath but requiring supplemental oxygen.. Exam Narrative: General: elderly but WD/WN female in NAD Heart: normal S1 and S2; no rub Lungs: coarse at bases Abdomen: soft, nontender, nondistended, positive bowel sounds Extremities: no cyanosis or clubbing; no edema Skin: warm and dry Objective Data Vital Signs Vital Signs: Vital Signs Temp Pulse Resp BP Pulse Ox O2 Del Method O2 Flow Rate 08/07/23 14:00 99 F 77 16 116/52 L 97 08/07/23 12:00 74 08/07/23 08:00 73 08/07/23 08:00 94 Nasal Cannula 3 08/07/23 09:05 116/44 L 08/07/23 09:02 78 08/07/23 04:00 68 08/07/23 05:12 98.4 F 93 16 105/54 L 94 08/07/23 00:00 68 08/06/23 21:03 99 Nasal Cannula 3 08/06/23 20:00 145 H 08/06/23 20:58 97.8 F 76 16 124/65 99 08/06/23 16:01 130 H Intake/Output Intake/Output: Intake & Output 08/04/23 08/05/23 08/06/23 08/07/23 23:59 23:59 23:59 23:59 Intake Total 2420 1694 1320 910 Output Total 1900 1600 1900 1600 Balance 520 76 -030 -882 Meds/Results Medications: Active Medications Generic Name Dose Route Start Last Admin Trade Name Freq PRN Reason Stop Dose Admin Acetaminophen 650 mg 08/05/23 04:44 08/05/23 04:54 Acetaminophen 325 Mg Tablet PO 650 mg Q6H PRN Administration Mild Pain (1-3) or Fever Allopurinol 200 mg 08/02/23 09:00 08/03/23 08:29 Allopurinol 100 Mg Tablet PO Not Given DAILY CARROLL Alprazolam 0.25 mg 08/01/23 23:07 Alprazolam (*Crx) 0.25 Mg Tablet PO TID PRN Anxiety Amiodarone HCl 200 mg 08/02/23 09:00 08/07/23 09:02 Amiodarone Hcl 200 Mg Tablet PO 200 mg DAILY CARROLL Administration Amlodipine Besylate 5 mg 08/05/23 09:00 08/07/23 11:28 Amlodipine Besylate 5 Mg Tablet PO
[2023-08-07 17:20] LABS: Glucose Point of Care 146 mg/dl (65-105)
[2023-08-07] MEDS: MELATONIN 3 MG TABLET 6 MG PO (20:01)
[2023-08-07 21:19] LABS: Glucose Point of Care 103 mg/dl (65-105)
[2023-08-08] VITALS (13 sets, daily range): BP systolic 118–120; BP diastolic 68–69; PULSE 69–144; RESP 16–17; TEMP 36.4–36.5; O2SAT 87–94
[2023-08-08 06:43] LABS: Hematocrit 37.9 % (37.0-47.0); Hemoglobin 12.8 g/dL (12.0-15.0); Mean Corpuscular HGB Conc 33.8 g/dl (32-36); Mean Corpuscular Hemoglobin 30.8 pg (26-34); Mean Corpuscular Volume 91.1 fl (80-100); Mean Platelet Volume 11.3 fl (7.4-10.4); Platelet Count Result 364 k/mm3 (150-375); Red Blood Count 4.16 M/mm3 (4.2-5.4); Red Cell Distribution Width 14.2 % (11.5-14.5); White Blood Count 9.5 K/mm3 (4.5-10.0)
[2023-08-08 07:08] LABS: Anion Gap 10 mmol/L (8-16); Blood Urea Nitrogen 12 mg/dL (7-17); Calcium 8.6 mg/dL (8.4-10.2); Carbon Dioxide 28 mmol/L (22-30); Chloride 101 mmol/L (98-107); Estimated CRCL calculation 28 ml/min; Estimated Glomerular Filt Rate 32; Glucose 122 mg/dL (65-110); Potassium 3.3 mmol/L (3.4-5.0); Sodium 139 mmol/L (137-145)
[2023-08-08] MEDS: APIXABAN 5 MG TABLET PO (07:37)
[2023-08-08] MEDS: AMIODARONE HCL 200 MG TABLET PO (07:37)
[2023-08-08] MEDS: amLODIPine BESYLATE 5 MG TABLET PO (07:37)
[2023-08-08] MEDS: PANTOPRAZOLE 40 MG TABLET PO (07:38)
[2023-08-08] MEDS: CHOLECALCIFEROL 1,000 UNITS TABLET 5000 UNITS PO (07:38)
[2023-08-08] MEDS: METOPROLOL SUCCINATE EXT REL 50 MG TABCR PO (07:38)
[2023-08-08] MEDS: GABAPENTIN 300 MG CAPSULE PO (07:38)
[2023-08-08] MEDS: MAGNESIUM OXIDE 400 MG TABLET PO (07:38)
[2023-08-08] MEDS: ZINC OXIDE 20% OINT 30 GM TUBE 1 APPLIC TOPICAL (07:39)
[2023-08-08] MEDS: ROSUVASTATIN 10 MG TABLET 40 MG PO (07:39)
[2023-08-08] MEDS: POTASSIUM CHLORIDE 20 MEQ PACKET (FOR LIQUID) 40 MEQ PO (07:39)
[2023-08-08] MEDS: allopurinoL 100 MG TABLET 200 MG PO (07:43)
[2023-08-08 08:02] LABS: Glucose Point of Care 154 mg/dl (65-105)
[2023-08-08 12:21] LABS: Glucose Point of Care 124 mg/dl (65-105)
--- NOTE | 2023-08-08 15:08 | P.PNIM_ITS ---
Progress Note: A&P Assessment and Plan (1) Pneumonia: Code(s): J18.9 - Pneumonia, unspecified organism Status: Acute Assessment and Plan: * CXR revealed atelectasis versus PN * continue telemetry monitoring * new 3 L O2 requirement, work to wean but may need home O2 eval prior to d/c if unable * CT scan chest negative for PE, consistent with pneumonia * blood cultures pending * continue Augmentin * incentive spirometry every 2 hours * sputum culture sample not tested (2) Obstructive sleep apnea: Code(s): G47.33 - Obstructive sleep apnea (adult) (pediatric) Status: Chronic Assessment and Plan: * continue CPAP overnight * use home settings (3) HTN (hypertension): Qualifiers: Hypertension type: primary hypertension Qualified Code(s): I10 - Essential (primary) hypertension Code(s): I10 - Essential (primary) hypertension Status: Chronic Assessment and Plan: * continue amlodipine (4) Hypokalemia: Code(s): E87.6 - Hypokalemia Status: Acute Assessment and Plan: * K 3.2 today, continue to replete and monitor * given 1 dose of 20 mg PO Lasix due to wheezes on exam and oxygen requirement (5) KARINA (acute kidney injury): Code(s): N17.9 - Acute kidney failure, unspecified Status: Acute Assessment and Plan: * related to multiple etiologies. no evidence of fluid overload * creatinine is 1.3, eGFR 40 * continue hold Lasix but given 1 dose of 20 mg PO Lasix due to wheezes on exam and oxygen requirement * continue strict I&0 * Nephrology is following * continue to?monitor renal function. (6) Diabetes mellitus type 2 in obese: Code(s): E11.69 - Type 2 diabetes mellitus with other specified complication; E66.9 - Obesity, unspecified Status: Chronic Assessment and Plan: * hypoglycemia protocol, POC blood glucose ACHS * correct regimen ordered - low dose TIDWM and HS * elementary educator consulted * will need home medications at d/c and instruction for follow-up with PCP Plan post herpetic neuralgia -Continue home medications gabapentin t.i.d. Home Meds/Chronic Conditions: Gout: ?HOLD?allopurinol 200 mg daily HLD: ?Continue rosuvastatin daily ?Anxiety:? Continue alprazolam t.i.d. p.r.n. AFib/AFlut:? -continue home amiodarone and metoprolol.? Continue anticoagulation, currently on Eliquis 5 mg q.12 hour OTC/supplements:? Continue vitamin D3, magnesium, melatonin.? continue oral potassium. GERD: Continue omeprazole Subjective Date/time seen: 08/08/23 15:08 Interval history: This is a 68 year old female Review of Systems Review of Systems: All systems reviewed & are unremarkable except as noted in HPI and below Objective Data Vital Signs Vital Signs: Vital Signs - 24 hr 08/07/23 16:00 08/07/23 20:00 08/07/23 20:00 Temperature Pulse Rate 77 85 Respiratory Rate Blood Pressure Pulse Oximetry 95 Oxygen Delivery Room Air Oxygen Flow Rate 08/07/23 20:00 08/08/23 00:00 08/08/23 04:00 Temperature 97.8 F Pulse Rate 81 83 127 H Respiratory Rate 16 Blood Pressure 137/68 Pulse Oximetry 92 Oxygen Delivery Oxygen Flow Rate 08/08/23 04:42 08/08/23 07:37 08/08/23 07:38
--- NOTE | 2023-08-08 15:08 | PM.IMPN ---
Progress Note: A&P Assessment and Plan (1) Pneumonia: Code(s): J18.9 - Pneumonia, unspecified organism Status: Acute Assessment and Plan: CXR revealed atelectasis versus PN continue telemetry monitoring new 3 L O2 requirement, work to wean but may need home O2 eval prior to d/c if unable CT scan chest negative for PE, consistent with pneumonia blood cultures pending continue Augmentin incentive spirometry every 2 hours sputum culture sample not tested (2) Obstructive sleep apnea: Code(s): G47.33 - Obstructive sleep apnea (adult) (pediatric) Status: Chronic Assessment and Plan: continue CPAP overnight use home settings (3) HTN (hypertension): Qualifiers: Hypertension type: primary hypertension Qualified Code(s): I10 - Essential (primary) hypertension Code(s): I10 - Essential (primary) hypertension Status: Chronic Assessment and Plan: continue amlodipine (4) Hypokalemia: Code(s): E87.6 - Hypokalemia Status: Acute Assessment and Plan: K 3.2 today, continue to replete and monitor given 1 dose of 20 mg PO Lasix due to wheezes on exam and oxygen requirement (5) KARINA (acute kidney injury): Code(s): N17.9 - Acute kidney failure, unspecified Status: Acute Assessment and Plan: related to multiple etiologies. no evidence of fluid overload creatinine is 1.3, eGFR 40 continue hold Lasix but given 1 dose of 20 mg PO Lasix due to wheezes on exam and oxygen requirement continue strict I&0 Nephrology is following continue to?monitor renal function. (6) Diabetes mellitus type 2 in obese: Code(s): E11.69 - Type 2 diabetes mellitus with other specified complication; E66.9 - Obesity, unspecified Status: Chronic Assessment and Plan: hypoglycemia protocol, POC blood glucose ACHS correct regimen ordered - low dose TIDWM and HS coding educator consulted will need home medications at d/c and instruction for follow-up with PCP Plan post herpetic neuralgia -Continue home medications gabapentin t.i.d. Home Meds/Chronic Conditions: Gout: ?HOLD?allopurinol 200 mg daily HLD: ?Continue rosuvastatin daily ?Anxiety:? Continue alprazolam t.i.d. p.r.n. AFib/AFlut:? -continue home amiodarone and metoprolol.? Continue anticoagulation, currently on Eliquis 5 mg q.12 hour OTC/supplements:? Continue vitamin D3, magnesium, melatonin.? continue oral potassium. GERD: Continue omeprazole Subjective Date/time seen: 08/08/23 15:08 Interval history: This is a 68 year old female Review of Systems Review of Systems: All systems reviewed & are unremarkable except as noted in HPI and below Objective Data Vital Signs Vital Signs: Vital Signs - 24 hr 08/07/23 16:00 08/07/23 20:00 08/07/23 20:00 Temperature Pulse Rate 77 85 Respiratory Rate Blood Pressure Pulse Oximetry 95 Oxygen Delivery Room Air Oxygen Flow Rate 08/07/23 20:00 08/08/23 00:00 08/08/23 04:00 Temperature 97.8 F Pulse Rate 81 83 127 H Respiratory Rate 16 Blood Pressure 137/68 Pulse Oximetry 92 Oxygen Delivery Oxygen Flow Rate 08/08/23 04:42 08/08/23 07:37 08/08/23 07:38 Temperature 97.7 F Pulse Rate 136 H 143 H 144 H Respiratory Rate 16 Blood Pressure 120/69 Pulse Oximetry 92 Oxygen Delivery Oxygen Flow Rate 08/08/23 07:40 08/08/23 10:45 08/08/23 08:00 Temperature Pulse Rate 144 H Respiratory Rate Blood Pressure Pulse Oximetry 87 L Oxygen Delivery Room Air Room Air Oxygen Flow Rate 08/08/23 12:00 08/08/23 10:55 Temperature Pulse Rate 79 Respiratory Rate Blood Pressure Pulse Oximetry 92 Oxygen Delivery Nasal Cannula Oxygen Flow Rate 1 Intake/Output Intake/Output: Intake & Output 08/05/23 08/06/23 08/07/23 08/08/23 23:59 23:59 23:59 23:59 Intake Total 1694 1320 1150 1162 Output Total 1600 1900 1999
--- NOTE | 2023-08-08 16:18 | HOMEO2EVAL ---
Evaluation was performed at [facility] Home Oxygen Evaluation RC: Home Oxygen (O2) Evaluation Start: 08/07/23 15:53 Freq: ONCE Status: Active Protocol: RPE Activity Type Activity Date Activity User E-sign Co-sign Detail Recorded Client Recorded Date Recorded By Document 08/08/23 16:00 NATTY [email or web address] 08/08/23 16:18 NATTY Document 08/08/23 16:05 NATTY [email or web address] 08/08/23 16:18 NATTY Document 08/08/23 16:15 NATTY [email or web address] 08/08/23 16:18 NATTY 08/08/23 08/08/23 08/08/23 16:00 16:05 16:15 Home O2 Evaluation [Oxygen] -Test Phase Resting Exercise Resting -Oxygen Delivery Room Air Room Air Room Air [Pulse Oximetry] -Pulse Oximetry (90-100 %) 92 93 93 [Comments] -Home Oxygen Evaluation Comments NO HOME O2 NEEDED AT THIS TIME [Charges] -Evaluation Charges O2 Evaluation by Pulmonary
--- NOTE | 2023-08-08 16:18 | PCRCNOTE ---
HOME O2 EVAL COMPLETED, NO HOME O2 NEEDED AT THIS TIME, RN NOTIFIED
[2023-08-08 16:48] LABS: Glucose Point of Care 125 mg/dl (65-105)
--- NOTE | 2023-08-08 17:15 | PM.DS ---
DS: Admitting Diagnosis Discharge Date 08/08/23 Admitting Diagnosis Hypokalemia Acute kidney injury Type 2 diabetes mellitus Hypertension Post herpetic neuralgia Obstructive sleep apnea DS: Discharge Diagnosis Discharge Diagnosis (1) Pneumonia: Code(s): J18.9 - Pneumonia, unspecified organism Status: Acute (2) Obstructive sleep apnea: Code(s): G47.33 - Obstructive sleep apnea (adult) (pediatric) Status: Chronic (3) HTN (hypertension): Qualifiers: Hypertension type: primary hypertension Qualified Code(s): I10 - Essential (primary) hypertension Code(s): I10 - Essential (primary) hypertension Status: Chronic (4) Hypokalemia: Code(s): E87.6 - Hypokalemia Status: Acute (5) KARINA (acute kidney injury): Code(s): N17.9 - Acute kidney failure, unspecified Status: Acute (6) Diabetes mellitus type 2 in obese: Code(s): E11.69 - Type 2 diabetes mellitus with other specified complication; E66.9 - Obesity, unspecified Status: Chronic DS: Summary Hospital Course Reason for hospitalization: Hypokalemia Acute kidney injury Pneumonia New onset type 2 diabetes mellitus Hyperglycemia Hospital Course: This is a 68 year old female presented to the hospital on 08/01/2023 for evaluation of hypokalemia and acute kidney injury. Workup in the hospital included a renal ultrasound which shown normal kidneys and no hydronephrosis. A chest x-ray with mild airspace opacities in the lower lung zones representing pneumonia. He also had a chest which was negative for acute pulmonary embolism but did show pulmonary opacities representing pneumonia, and multiples pulmonary nodules. EKG showed AFib with a rate of 77. Blood cultures showing no growth. Sputum culture was not tested because S min was not suitable. She finished a course of antibiotics while in the hospital for her pneumonia. She was also found to have hemoglobin A1c of 7.1 this admission. She was seen by the transportation superintendent who also showed her how to do blood sugar checks at home and patient was provided with a meter. She is to test her blood sugar daily. Metformin was prescribed. Examination today patient is alert and oriented x3, lying in the bed. She is hard of hearing. She denies any fever, chills, nausea, vomiting, diarrhea, abdominal pain, chest pain, shortness a breath. Labs today were essentially unremarkable other than her potassium of 3.3 and her creatinine of 1.6. Blood sugars have been ranging 103-154. She will need to follow up with her primary care physician in 1 week. Final diagnosis: Type 2 diabetes mellitus, new onset. Community acquired pneumonia, hypokalemia, acute kidney injury Status at Discharge Cognitive/behavioral status at discharge: Alert oriented x3, hard of hearing Functional status at discharge: independent ambulation Overall status at discharge: patient is progressing back to baseline Time Spent with Patient Time attestation: Total time spent providing and/or coordinating discharge services: Time spent: Greater than 30 minutes Exam Narrative: General: In no acute distress, well nourished Head: atraumatic, no encephalopathy Eyes: EOMI, PERRLA, sclera clear ENT: moist mucous membranes, nasal passages clear, wears hearing aids Neck: supple, no JVD, no adenopathy, trachea midline Cardiac: Normal S1 and S2. No murmur, gallops or friction rubs, peripheral pulses intact. Respiratory: Lung sounds mild crackles noted, no adventitious lung sounds. She does not appear to be in any respiratory distress. No use of accessory muscles. Gastrointestinal: soft, non-distended, non-tender, normoactive bowel sounds. : voiding without difficulty. Extremities: moves all extremities well, no edema, good ROM, strength 5/5 Skin: clean, dry, intact. No wounds or lesions. Neuro: Alert and oriented x4, cranial nerves intact, no neuro deficits. Psych: normal mood, normal affect, interac
== END 2023-08-08 18:15 | disposition home or self-care (01) | DRG 682 ==
LOC: ANHED 12:54 → ANH3MEDSUR 13:30 → ANH2MED 20:53
PROVIDERS: Family Medicine; Internal Medicine Nephrology; Nurse Practitioner; Student in an Organized Health Care Education/Training Program; Admitting Provider Student in an Organized Health Care Education/Training Program; Emergency Provider Emergency Medicine; PCP Family Medicine; Visit Provider Nurse Practitioner Acute Care
DX: N17.9 Acute kidney failure, unspecified (principal); J18.9 Pneumonia, unspecified organism; I50.32 Chronic diastolic (congestive) heart failure; I48.20 Chronic atrial fibrillation, unspecified; B02.29 Other postherpetic nervous system involvement; E87.6 Hypokalemia; I11.0 Hypertensive heart disease with heart failure; I34.0 Nonrheumatic mitral (valve) insufficiency; E11.9 Type 2 diabetes mellitus without complications; E78.2 Mixed hyperlipidemia; E66.9 Obesity, unspecified; M10.9 Gout, unspecified; R00.0 Tachycardia, unspecified; R09.02 Hypoxemia; G47.33 Obstructive sleep apnea (adult) (pediatric); F39 Unspecified mood [affective] disorder; Z96.21 Cochlear implant status; Z79.01 Long term (current) use of anticoagulants
CPT/HCPCS: 36415; 71045; 71046; 71275; 76775; 80048; 80053; 80061; 80069; 81001; 81050; 82306; 82533; 82550; 82570; 82948; 83036; 83520; 83735; 83883; 84100; 84133; 84155; 84156; 84165; 84166; 84300; 84443; 84540; 85025; 85027; 85652; 85999; 86036; 86038; 86039; 86140; 86160; 86225; 86334; 86335; 87040; 87070; 87205; 87449; 93005; 94618; 96365; 96366; 97161; 99285; A9270; G0378; J0456; J0696; J2405; J3480; J7030; J7040; J7120; Q9967

== ENCOUNTER 2023-08-16 09:41 | Outpatient (CLI) | payer MEDICARE, SELFPAY ==
[2023-08-16 19:52] LABS: Anion Gap 10 mmol/L (8-16); Blood Urea Nitrogen 16 mg/dL (7-17); Calcium 10.6 mg/dL (8.4-10.2); Carbon Dioxide 30 mmol/L (22-30); Chloride 101 mmol/L (98-107); Estimated Glomerular Filt Rate 40; Glucose 117 mg/dL (65-110); Potassium 4.1 mmol/L (3.4-5.0); Sodium 141 mmol/L (137-145)
== END 2023-08-16 09:42 | disposition home or self-care (01) ==
PROVIDERS: PCP Family Medicine; Visit Provider Nurse Practitioner Family
DX: E87.6 Hypokalemia (principal); N17.9 Acute kidney failure, unspecified
CPT/HCPCS: 36415; 80048

== ENCOUNTER 2023-11-13 11:50 | Outpatient (CLI) | payer MEDICARE, SELFPAY ==
[2023-11-13 13:20] LABS: Alanine Aminotransferase 51 U/L (6-35); Albumin Level 4.8 g/dL (3.5-5.1); Alkaline Phosphatase 113 U/L (38-126); Anion Gap 7 mmol/L (4-12); Aspartate Amino Transferase 64 U/L (14-36); Bilirubin,Total 0.6 mg/dL (0.2-1.3); Blood Urea Nitrogen 25 mg/dL (7-17); Calcium 10.5 mg/dL (8.4-10.2); Carbon Dioxide 34 mmol/L (22-30); Chloride 103 mmol/L (98-107); Estimated Glomerular Filt Rate 28; Glucose 130 mg/dL (65-110); Potassium 3.5 mmol/L (3.4-5.0); Sodium 144 mmol/L (137-145)
[2023-11-13 14:08] LABS: Creatinine Urine 23.4 mg/dL
[2023-11-13 14:36] LABS: Hepatitis C Virus Antibody Negative (Negative); Vitamin D 25 Hydroxy 73.4 ng/mL
[2023-11-13 15:03] LABS: MALB Creatinine Ratio 1132.9 mg/g (0-30); Microalbumin Urine Random 265.1 mg/L (0-16.7)
== END 2023-11-13 11:51 | disposition home or self-care (01) ==
PROVIDERS: PCP Family Medicine; Visit Provider Nurse Practitioner Family
DX: Z11.59 Encounter for screening for other viral diseases (principal); E11.69 Type 2 diabetes mellitus with other specified complication; E66.9 Obesity, unspecified; I50.30 Unspecified diastolic (congestive) heart failure; I48.92 Unspecified atrial flutter; E55.9 Vitamin D deficiency, unspecified
CPT/HCPCS: 36415; 80053; 82043; 82306; 82607; 83036; 84443; 86803

== ENCOUNTER 2024-02-24 00:54 | Day surgery (SDC) | payer MEDICARE, SELFPAY ==
[2024-02-14 08:34] VITALS: BMI 32.3
--- NOTE | 2024-02-14 08:50 | SUR.PREOP ---
Spoke with patient and regarding medication Eliquis. They both verbalize understanding that the last dose of Eliquis is to be taken on02/21/24 and the Endoscopist will instruct them when to restart after the procedure.
[2024-02-24 12:27] LABS: Glucose Point of Care 101 mg/dl (65-105)
[2024-02-24 12:34] VITALS: BP 145/80; PULSE 71; RESP 20; TEMP 36.5; O2SAT 96; BMI 31.6
--- NOTE | 2024-02-24 12:39 | WPDANESEPPF ---
Anes - Initial Pre Proc Eval Procedure: Operation Date: 02/24/24 13:30 Proposed Procedures p Colonoscopy - Ovi Lyons MD Date/Time: 02/24/24 12:39 Surgeon: Ovi Lyons MD Pre Op Diagnosis: other fecal abnormalities Patient Data Age: 68 Gender: F Height: 1.5 m Weight: 71 kg Last Vital Signs Temp 97.7 F 02/24/24 12:34 Pulse 71 02/24/24 12:34 Resp 20 02/24/24 12:34 BP 145/80 H 02/24/24 12:34 Pulse Ox 96 02/24/24 12:34 O2 Del Method Room Air 02/24/24 12:34 Allergies Allergy/AdvReac Type Severity Reaction Status Date / Time No Known Allergies Allergy Verified 02/24/24 12:30 Home Medications Medication Instructions Recorded Confirmed Type cholecalciferol (vitamin D3) 125 125 mcg PO DAILY 10/24/22 02/24/24 History mcg (5,000 unit) capsule alprazolam 0.25 mg tablet 0.25 mg PO TID PRN Anxiety #12 tabs 11/20/22 02/14/24 Rx magnesium oxide 400 mg (241.3 mg 400 mg PO QAM #30 tabs 11/20/22 02/14/24 Rx magnesium) tablet amlodipine 10 mg tablet 10 mg PO QAM #90 tabs 04/22/23 02/14/24 Rx CPAP #1 ea 07/04/23 02/14/24 Rx omeprazole 20 mg capsule,delayed 20 mg PO DAILY #90 caps 07/22/23 02/14/24 Rx release apixaban 5 mg tablet (Eliquis) 5 mg PO Q12HR #60 tabs 08/06/23 02/24/24 Rx Nasal pillow mask for CPAP #1 ea 08/19/23 02/14/24 Rx potassium chloride 10 mEq 10 meq PO DAILY #90 tabs 08/19/23 02/14/24 Rx tablet,extended release lancets 30 gauge (OneTouch Delica #200 ea 08/21/23 02/14/24 Rx Plus Lancet) blood sugar diagnostic (OneTouch #100 ea 08/30/23 02/14/24 Rx Ultra Test strips) allopurinol 100 mg tablet 200 mg PO DAILY 11/13/23 02/14/24 History metformin 500 mg tablet 500 mg PO BID #180 tabs 12/03/23 02/14/24 Rx tirzepatide 2.5 mg/0.5 mL 2.5 mg (0.5 mL) subcut WEEKLY 4 12/09/23 02/14/24 Rx subcutaneous pen injector weeks #6 mL (Mounjaro) albuterol sulfate 90 mcg/actuation 1 puff inhalation Q4H PRN 12/16/23 02/14/24 Rx aerosol inhaler shortness of breath or wheezing #6.7 grams amiodarone 200 mg tablet (Pacerone) 200 mg PO DAILY #90 tabs 01/01/24 02/14/24 Rx gabapentin 400 mg capsule 400 mg PO TID #270 caps 01/01/24 02/14/24 Rx furosemide 20 mg tablet 20 mg PO DAILY #90 tabs 01/07/24 02/14/24 Rx metoprolol succinate 50 mg 50 mg PO DAILY #30 tabs 01/07/24 02/14/24 Rx tablet,extended release 24 hr rosuvastatin 40 mg tablet 40 mg PO DAILY 02/14/24 02/14/24 History Laboratory Tests 02/24/24 12:23 POC Capillary Glucose 101 mg/dl (65-105) Patient hx anesthesia problems: none Family hx anesthesia problems: none Results Review: All pre-operative results and documents have been reviewed as part of the pre-operative evaluation. [facility] Past Medical History Medical History (Updated 11/13/23 @ 11:47 by DUC Ramirez) (HFpEF) heart failure with preserved ejection fraction Atrial fibrillation/flutter Dx at [facility] during admission on 12/05/22-12/11/22 Breast cancer screening by mammogram Diabetes mellitus type 2 in obese GERD without esophagitis Gout Herpes zoster Shingles Flare in October of 2022 HTN (hypertension) Migraine, unspecified, not intractable, without status migrainosus Mitral regurgitation Mixed hyperlipidemia Mood disorder Obesity (BMI 30.0-34.9) Obstructive sleep apnea Unspecified sensorineural hearing loss Surgical History Surgical History H/O section X2 H/O tubal ligation History of cochlear implant Family History Family History Sibling Patient's sister is Mother Patient's mother is Other Family history of elevated blood lipids Family history of glaucoma Hypertension Social History Social History Social History: The patient is and lives with
[2024-02-24] MEDS: LACTATED RINGERS 1,000 ML 150 ML IV CONT (12:51)
--- NOTE | 2024-02-24 13:16 | PM.HPGS ---
History of Present Illness History of Present Illness Consent: Risks, benefits, and alternatives have been discussed and questions answered. Patient agrees to proceed with procedure. Chief complaint: other fecal abnormalities Narrative: Stella Carroll is a 68 year old female here for first colonoscopy, + cologuard Review of Systems Review of Systems: All systems reviewed & are unremarkable except as noted in HPI and below PMFSH Past Medical History Medical History (Updated 02/24/24 @ 13:17 by Ovi Lyons MD) (HFpEF) heart failure with preserved ejection fraction Atrial fibrillation/flutter Dx at [facility] during admission on 12/05/22-12/11/22 Breast cancer screening by mammogram Diabetes mellitus type 2 in obese GERD without esophagitis Gout Herpes zoster Shingles Flare in October of 2022 HTN (hypertension) Migraine, unspecified, not intractable, without status migrainosus Mitral regurgitation Mixed hyperlipidemia Mood disorder Obesity (BMI 30.0-34.9) Obstructive sleep apnea Positive colorectal cancer screening using Cologuard test Unspecified sensorineural hearing loss Surgical History Surgical History H/O section X2 H/O tubal ligation History of cochlear implant Family History Family History Sibling Patient's sister is Mother Patient's mother is Other Family history of elevated blood lipids Family history of glaucoma Hypertension Social History Social History Social History: The patient is and lives with her . She has 2 children. She is retired from [employer]. She is a lifelong nonsmoker. She does not use any alcohol marijuana or illicit drugs. Code status full code Smoking status: Never smoker Alcohol intake: never Substance use: never Substance use type: does not use Do You Feel Safe in your Home?: Yes Lack of Transportation: No Lack of Food: Never True Current Housing: I Have Housing Concerned About Future Housing: No Difficulty Paying Gas/Electric Bills: No Difficulty Paying for Meds: No Currently Unemployed: No Education: High School Diploma/GED Difficulty w/ Childcare or Family Care: No Living arrangements: other Additional living arrangements comments: with sp Spiritual care concerns: No Meds Home Medications and Allergies Home Medications Medication Instructions Recorded Confirmed Type cholecalciferol (vitamin D3) 125 125 mcg PO DAILY 10/24/22 02/24/24 History mcg (5,000 unit) capsule alprazolam 0.25 mg tablet 0.25 mg PO TID PRN Anxiety #12 tabs 11/20/22 02/14/24 Rx magnesium oxide 400 mg (241.3 mg 400 mg PO QAM #30 tabs 11/20/22 02/14/24 Rx magnesium) tablet amlodipine 10 mg tablet 10 mg PO QAM #90 tabs 04/22/23 02/14/24 Rx CPAP #1 ea 07/04/23 02/14/24 Rx omeprazole 20 mg capsule,delayed 20 mg PO DAILY #90 caps 07/22/23 02/14/24 Rx release apixaban 5 mg tablet (Eliquis) 5 mg PO Q12HR #60 tabs 08/06/23 02/24/24 Rx Nasal pillow mask for CPAP #1 ea 08/19/23 02/14/24 Rx potassium chloride 10 mEq 10 meq PO DAILY #90 tabs 08/19/23 02/14/24 Rx tablet,extended release lancets 30 gauge (OneTouch Delica #200 ea 08/21/23 02/14/24 Rx Plus Lancet) blood sugar diagnostic (OneTouch #100 ea 08/30/23 02/14/24 Rx Ultra Test strips) allopurinol 100 mg tablet 200 mg PO DAILY 11/13/23 02/14/24 History metformin 500 mg tablet 500 mg PO BID #180 tabs 12/03/23 02/14/24 Rx tirzepatide 2.5 mg/0.5 mL 2.5 mg (0.5 mL) subcut WEEKLY 4 12/09/23 02/14/24 Rx subcutaneous pen injector weeks #6 mL (Mounjaro) albuterol sulfate 90 mcg/actuation 1 puff inhalation Q4H PRN 12/16/23 02/14/24 Rx aerosol inhaler shortness of breath or wheezing #6.7 grams amiodarone 200 mg tablet (Pacerone) 200 mg PO DAILY
[2024-02-24 13:33] VITALS: BP 102/59; PULSE 60; RESP 15; O2SAT 96
[2024-02-24 13:43] VITALS: BP 105/58; PULSE 60; RESP 15; O2SAT 94
[2024-02-24 13:53] VITALS: BP 113/63; PULSE 60; RESP 17; O2SAT 99
[2024-02-24 14:10] VITALS: BP 132/74; PULSE 60; RESP 20; O2SAT 99
--- NOTE | 2024-02-24 14:21 | SUR.PHASEII ---
Patient to resume Eliquis on 02/24 per physicians orders. Patient verbalizes understanding.
== END 2024-02-24 14:19 | disposition home or self-care (01) ==
PROVIDERS: PCP Family Medicine; Referring Provider Nurse Practitioner Family; Visit Provider Internal Medicine Gastroenterology
PROC: 0DJD8ZZ Inspection of Lower Intestinal Tract, Via Natural or Artificial Opening Endoscopic (ICD-10-PCS; CPT 45378; principal; 2024-02-24 13:30)
DX: K64.8 Other hemorrhoids (principal); K57.30 Diverticulosis of large intestine without perforation or abscess without bleeding; I48.91 Unspecified atrial fibrillation; I48.92 Unspecified atrial flutter; E11.9 Type 2 diabetes mellitus without complications; I10 Essential (primary) hypertension; F39 Unspecified mood [affective] disorder; G47.33 Obstructive sleep apnea (adult) (pediatric); E78.2 Mixed hyperlipidemia; E66.9 Obesity, unspecified; Z68.31 Body mass index [BMI] 31.0-31.9, adult; Z79.01 Long term (current) use of anticoagulants; Z79.84 Long term (current) use of oral hypoglycemic drugs; Z79.85 Long-term (current) use of injectable non-insulin antidiabetic drugs; Z79.51 Long term (current) use of inhaled steroids; Z99.89 Dependence on other enabling machines and devices; Z98.890 Other specified postprocedural states; Z98.51 Tubal ligation status
CPT/HCPCS: 45380; 82948; 88305; J2704; J7120

== ENCOUNTER 2024-05-01 11:32 | Outpatient (CLI) | payer MEDICARE, SELFPAY ==
[2024-05-01 14:11] LABS: Vitamin D 25 Hydroxy 82.7 ng/mL
[2024-05-01 14:36] LABS: Creatinine Urine 98.9 mg/dL
[2024-05-01 14:37] LABS: Alanine Aminotransferase 48 U/L (6-35); Albumin Level 4.2 g/dL (3.5-5.1); Alkaline Phosphatase 94 U/L (38-126); Anion Gap 8 mmol/L (4-12); Aspartate Amino Transferase 70 U/L (14-36); Bilirubin,Total 0.5 mg/dL (0.2-1.3); Blood Urea Nitrogen 20 mg/dL (7-17); Calcium 9.9 mg/dL (8.4-10.2); Carbon Dioxide 35 mmol/L (22-30); Chloride 102 mmol/L (98-107); Estimated Glomerular Filt Rate 30; Glucose 97 mg/dL (65-110); Potassium 2.8 mmol/L (3.4-5.0); Sodium 145 mmol/L (137-145)
[2024-05-01 14:44] LABS: Hepatitis C Virus Antibody Negative (Negative)
[2024-05-01 15:05] LABS: MALB Creatinine Ratio 539.5 mg/g (0-30); Microalbumin Urine Random 533.6 mg/L (0-16.7)
[2024-05-01 15:30] LABS: Hemoglobin A1C 5.7 % (<5.7)
== END 2024-05-01 11:33 | disposition home or self-care (01) ==
LOC: ANHGOSHLAB 11:35
PROVIDERS: PCP Family Medicine; Visit Provider Nurse Practitioner Family
DX: I48.92 Unspecified atrial flutter (principal); I50.30 Unspecified diastolic (congestive) heart failure; E11.69 Type 2 diabetes mellitus with other specified complication; E55.9 Vitamin D deficiency, unspecified; E66.9 Obesity, unspecified; Z11.59 Encounter for screening for other viral diseases
CPT/HCPCS: 36415; 80053; 82043; 82306; 82607; 83036; 84443; 86803

== ENCOUNTER 2024-05-06 15:19 | Outpatient (CLI) | payer MEDICARE, SELFPAY ==
--- NOTE | ~2024-05-06 | MM_ITS ---
EXAMINATION: MM screening nathaly BI w monika HISTORY: Screening TECHNIQUE: Craniocaudal and mediolateral oblique 3-D tomosynthesis images were obtained and synthetic 2-D images were generated. CAD analysis was submitted and interpreted. COMPARISON: 03/04/2021 BREAST PARENCHYMAL COMPOSITION: Not dense: There are scattered areas of fibroglandular density. FINDINGS: There is a developing mass in the superior aspect of the right breast on MLO view. The left breast is stable without evidence for malignancy. IMPRESSION: 1. Developing right breast mass. 2. Additional mammographic views and possible breast ultrasound are recommended. BI-RADS Category 0: Incomplete: Needs additional imaging evaluation. Reviewed, dictated and finalized at location B. IMPRESSION: 1. Developing right breast mass. 2. Additional mammographic views and possible breast ultrasound are recommended . BI-RADS Category 0: Incomplete: Needs additional imaging evaluation.
== END 2024-05-06 15:20 | disposition home or self-care (01) ==
LOC: MICIMG 15:20
PROVIDERS: PCP Nurse Practitioner Family; Visit Provider Nurse Practitioner Family
DX: Z12.31 Encounter for screening mammogram for malignant neoplasm of breast (principal); N63.10 Unspecified lump in the right breast, unspecified quadrant; R92.8 Other abnormal and inconclusive findings on diagnostic imaging of breast; I48.92 Unspecified atrial flutter
CPT/HCPCS: 77063; 77067

== ENCOUNTER 2024-05-12 10:08 | Outpatient (CLI) | payer MEDICARE, SELFPAY ==
[2024-05-12 14:32] LABS: Alanine Aminotransferase 76 U/L (6-35); Albumin Level 4.3 g/dL (3.5-5.1); Alkaline Phosphatase 105 U/L (38-126); Anion Gap 10 mmol/L (4-12); Aspartate Amino Transferase 78 U/L (14-36); Bilirubin,Total 0.6 mg/dL (0.2-1.3); Blood Urea Nitrogen 27 mg/dL (7-17); Carbon Dioxide 30 mmol/L (22-30); Chloride 103 mmol/L (98-107); Estimated Glomerular Filt Rate 30; Glucose 108 mg/dL (65-110); Potassium 3.3 mmol/L (3.4-5.0); Sodium 143 mmol/L (137-145)
[2024-05-12 14:35] LABS: Creatinine Urine 54.5 mg/dL
[2024-05-12 15:00] LABS: Microalbumin Urine Random 325.9 mg/L (0-16.7)
[2024-05-12 16:04] LABS: Hepatitis C Virus Antibody Negative (Negative)
[2024-05-12 17:19] LABS: Hemoglobin A1C 5.7 % (<5.7)
== END 2024-05-12 10:09 | disposition home or self-care (01) ==
PROVIDERS: PCP Nurse Practitioner Family; Visit Provider Nurse Practitioner Family
DX: E11.69 Type 2 diabetes mellitus with other specified complication (principal); E66.9 Obesity, unspecified; I50.30 Unspecified diastolic (congestive) heart failure; I48.92 Unspecified atrial flutter; E55.9 Vitamin D deficiency, unspecified
CPT/HCPCS: 36415; 80053; 82043; 82306; 82607; 83036; 84443; 86803

== ENCOUNTER 2024-05-29 08:23 | Outpatient (CLI) | payer MEDICARE, SELFPAY ==
--- NOTE | ~2024-05-29 | MMUS_ITS ---
EXAMINATION: MM diagnostic nathaly RT w monika, US breast RT limited HISTORY: Follow-up right breast mass TECHNIQUE: Additional 3-D tomosynthesis images of the right breast were performed and synthetic 2-D i mages were generated. CAD analysis was submitted and interpreted. High resolution Limited right breas t ultrasound was performed. COMPARISON: Comparison to multiple prior studies sequentially, with oldest reviewed study dated 03/04. BREAST PARENCHYMAL COMPOSITION: Not dense: There are scattered areas of fibroglandular density. FINDINGS: MAMMOGRAPHIC FINDINGS: There is a curvilinear mass in the upper outer quadrant of the right breast with probable fatty hilum . No suspicious calcifications or architectural distortion. ULTRASOUND: Limited right breast ultrasound: At 10:00, 8 cm from the nipple there is an oval hypoechoic mass with echogenic hilum measuring 11 x 9 x 5 mm, consistent with benign intramammary lymph node. No signific ant cortical thickening. No suspicious masses to suggest malignancy. IMPRESSION: 1. No evidence for malignancy in the right breast. Benign finding. 2. Routine yearly screening mammogram and regular clinical breast examination are recommended. BI-RADS Category 2: Benign finding(s). Reviewed, dictated and finalized at location B. IMPRESSION: 1. No evidence for malignancy in the right breast. Benign finding. 2. Routine yearly screening mammogram and regular clinical breast examination a re recommended. BI-RADS Category 2: Benign finding(s).
== END 2024-05-29 08:24 | disposition home or self-care (01) ==
LOC: MICIMG 08:24
PROVIDERS: PCP Nurse Practitioner Family; Visit Provider Nurse Practitioner Family
DX: R92.8 Other abnormal and inconclusive findings on diagnostic imaging of breast (principal)
CPT/HCPCS: 76642; 77061; 77065; G0279

== ENCOUNTER 2024-07-25 11:43 | Emergency (ER) | payer MEDICARE, SELFPAY ==
--- NOTE | ~2024-07-25 | XR_ITS ---
EXAMINATION: XR chest 2V DATE: 07/25/2024 12:56 INDICATION: Weakness. TECHNIQUE: Frontal and lateral views of the chest were obtained. COMPARISON: Chest single view 08/04/2023 FINDINGS: Calcified right lung nodules are consistent with old granulomatous disease. No pleural effu daniella or pneumothorax. The heart size is normal. There are old healed left rib fractures. IMPRESSION: 1. No acute cardiopulmonary disease. Reviewed, dictated and finalized at location A. RN BRAND
[2024-07-25 12:00] VITALS: BP 147/93; PULSE 95; RESP 20; TEMP 36.6; O2SAT 98
--- NOTE | 2024-07-25 12:20 | ED.GENADULT ---
HPI - General Adult General Chief complaint: Upper Respiratory Infection Stated complaint: decreased appetite Time Seen by Provider: 07/25/24 11:48 History of Present Illness HPI narrative: Patient is a 69-year-old female who presents ER with weakness and fatigue. Reports poor oral intake over last 3 days. Associated with nausea as well as sinus congestion sore throat and cough. No known sick contacts. No diarrhea. She has history of hypokalemia from diuretic medication that she has taken in the past. She is currently on Lasix but has not been taking it due to poor oral intake. No alleviating factors. Related Data Home Medications ?Medication ?Instructions ?Recorded ?Confirmed ?Last Taken ?Type cholecalciferol (vitamin D3) 125 125 mcg PO DAILY 10/24/22 07/15/24 02/24/24 History mcg (5,000 unit) capsule 0900 rosuvastatin 40 mg tablet 40 mg PO DAILY 02/14/24 07/15/24 02/24/24 History fluticasone propionate 50 intranasal 05/06/24 07/15/24 Unknown History mcg/actuation nasal spray,suspension latanoprost 0.005 % eye drops drp EACH EYE 05/06/24 07/15/24 Unknown History Allergies Allergy/AdvReac Type Severity Reaction Status Date / Time No Known Allergies Allergy Verified 07/15/24 11:26 Review of Systems Review of Systems: All systems reviewed & are unremarkable except as noted in HPI and below Constitutional: Constitutional: Reports no additional constitutional complaints ENT: Reports system reviewed and no additional complaints, except as documented Cardiovascular: Cardiovascular: Reports no additional cardiovascular complaints Gastrointestinal: Gastrointestinal: Reports no additional gastrointestinal complaints [facility] Past Medical History Medical History Positive colorectal cancer screening using Cologuard test HTN (hypertension) Atrial fibrillation/flutter Dx at [facility] during admission on 12/05/22-12/11/22 Obstructive sleep apnea Gout Diabetes mellitus type 2 in obese Mood disorder (HFpEF) heart failure with preserved ejection fraction Mitral regurgitation Herpes zoster Shingles Flare in October of 2022 Breast cancer screening by mammogram Obesity (BMI 30.0-34.9) GERD without esophagitis Migraine, unspecified, not intractable, without status migrainosus Mixed hyperlipidemia Unspecified sensorineural hearing loss Surgical History Surgical History H/O tubal ligation H/O section X2 History of cochlear implant Family History Family History Sibling Patient's sister is Mother Patient's mother is Other Family history of elevated blood lipids Family history of glaucoma Hypertension Social History Social History Social History: The patient is and lives with her . She has 2 children. She is retired from [employer]. She is a lifelong nonsmoker. She does not use any alcohol marijuana or illicit drugs. Code status full code Smoking status: Never smoker Alcohol intake: never Substance use: never Substance use type: does not use Do You Feel Safe in your Home?: Yes Lack of Transportation: No Lack of Food: Never True Current Housing: I Have Housing Concerned About Future Housing: No Difficulty Paying Gas/Electric Bills: No Difficulty Paying for Meds: No Currently Unemployed: No Education: High School Diploma/GED Difficulty w/ Childcare or Family Care: No Living arrangements: other Additional living arrangements comments: with sp Spiritual care concerns: No Exam Narrative: GENERAL: Well-appearing, well-nourished, and in no acute distress. HEAD: Normocephalic, atraumatic. ENT: Mucous membranes moist. NECK: Supple. CHEST: Clear to auscultation. No respiratory distress. HEART: Regular rate and rhythm. Normal peripheral pulses. ABDOMEN: Soft, nontender, nondistended, normal active bowel sounds. EXTREMITIES: Normal range of motion. No edema. SKIN: Warm, dry, no rash. NEURO: Alert and oriented x3. PSYCH: Normal mood and affect. Course Course Emergency Course: Patient resting comfortably. Hydrated. Informed of results. Mild white blood cell count. Potassium slightly lowered will give oral replacement, she has supplementation at home but has not been taking it. Patient RSV positive. No pneumonia. Urinalysis with positive white blood cells but no bacteria and patient asymptomatic. Vital Signs Vital signs: Vital Signs Temperature 97.8 F 07/25/24 12:00 Pulse Rate 95 07/25/24 12:00 Respiratory Rate 20 07/25/24 12:00 Blood Pressure 147/93 H 07/25/24 12:00 Pulse Oximetry 98 07/25/24 12:00 Oxygen Delivery Room Air 07/25/24 12:00 Temperature 97.8 F 07/25/24 12:00 Pulse Rate 90 07/25/24 14:09 Respiratory Rate 13 07/25/24 14:09 Blood Pressure 146/79 H 07/25/24 14:09 Pulse Oximetry 99 07/25/24 14:09 Oxygen Delivery Room Air 07/25/24 12:00 Medical Decision Making Vital Signs Vital Signs: Vital Signs Temperature 97.8 F 07/25/24 12:00 Pulse Rate 95 07/25/24 12:00 Respiratory Rate 20 07/25/24 12:00 Blood Pressure 147/93 H 07/25/24 12:00 Pulse Oximetry 98 07/25/24 12:00 Oxygen Delivery Room Air 07/25/24 12:00 Temperature 97.8 F 07/25/24 12:00 Pulse Rate 90 07/25/24 14:09 Respiratory Rate 13 07/25/24 14:09 Blood Pressure 146/79 H 07/25/24 14:09 Pulse Oximetry 99 07/25/24 14:09 Oxygen Delivery Room Air 07/25/24 12:00 Lab Data 07/25/24 12:15 07/25/24 12:15 Labs: Lab Results 07/25/24 07/25/24 07/25/24 Range/Units 12:13 12:15 13:20 WBC 13.3 H (4.5-10.0) K/mm3 RBC 4.54 (4.2-5.4) M/mm3 Hgb 14.3 (12.0-15.0) g/dL Hct 40.7 (37.0-47.0) % MCV 89.6 (80-100) fl MCH 31.5 (26-34) pg MCHC 35.1 (32-36) g/dl RDW 14.9 H (11.5-14.5) % Plt Count 465 H (150-375) k/mm3 MPV 10.4 (7.4-10.4) fl Immature Gran % (Auto) 0.7 H (0-0.5) % Neut % (Auto) 84.4 H (45.5-73.1) % Lymph % (Auto) 9.6 L (18.3-44.2) % [place] % (Auto) 4.8 (2.6-8.5) % Eos % (Auto) 0.0 (0-4.4) % Baso % (Auto) 0.5 (0.2-1.2) % Lymph # (Auto) 1.27 (0.9-3.2) K/mm3 [place] # (Auto) 0.6 (0.1-0.6) K/mm3 Eos # (Auto) 0.0 (0-0.3) K/mm3 Baso # (Auto) 0.1 (0.0-0.1) K/mm3 Abs Immat Gran (auto) 0.09 H (0.00-0.031) K/mm3 Absolute Neuts (auto) 11.2 H (1.3-6.7) K/mm3 Absolute Nucleated RBC 0.000 (0.0-0.012) K/mm3 Nucleated RBC % 0.0 (0.0-0.2) % Sodium 142 (137-145) mmol/L Potassium 3.0 L (3.4-5.0) mmol/L Chloride 103 (98-107) mmol/L Carbon Dioxide 28 (22-30) mmol/L Anion Gap 11 (4-12) mmol/L BUN 19 H (7-17) mg/dL Creatinine 1.30 H (0.7-1.0) mg/dL Estim Creat Clear Calc Not Reportable Estimated GFR 40 L (59 - ) Glucose 120 H (65-110) mg/dL Calcium 10.5 H (8.4-10.2) mg/dL Total Bilirubin 0.8 (0.2-1.3) mg/dL AST 100 H (14-36) U/L ALT 125 H (6-35) U/L Alkaline Phosphatase 111 (38-126) U/L Total Protein 8.0 (6.3-8.2) g/dL Albumin 4.6 (3.5-5.1) g/dL Lipase 89 (23-300) U/L Urine Color Yellow (Yellow) Urine Appearance Cloudy H (Clear) Urine pH 6.0 (5.0-9.0) Ur Specific [place] 1.015 (1.001-1.035) Urine Protein 3+ H (Negative) mg/dL Urine Glucose (UA) Negative (Negative) mg/dL Urine Ketones 1+ H (Negative) mg/dL Ur Blood (Man) 3+ H (Negative) Urine Nitrate Negative (Negative) Urine Bilirubin Negative (Negative) Urine Urobilinogen 0.2 (<2.0) mg/dL Leukocyte Esterase Rfl Trace H (Negative) CYNTHIA/UL Urine RBC 0-2 (0-2) /hpf Urine WBC 21-50 H (0-3) /hpf Ur Squamous Epith Cells None seen (Few) /hpf Urine Bacteria None seen /hpf Urine Casts 3-5 Influenza A (RT-PCR) Negative (Negative) Influenza B (RT-PCR) Negative (Negative) RSV (RT-PCR) Positive A (Negative) SARS-CoV-2 RNA (RT-PCR) Negative (Negative) Imaging Data Radiologist's impression: ITS Impressions Chest X-Ray 07/25/24 12:58 IMPRESSION: 1. No acute cardiopulmonary disease. Discharge Plan Discharge Clinical Impression: RSV infection, Hypokalemia Patient Disposition: Home, Self-Care Condition: Stable Instructions: Viral Syndrome (ED) Additional Instructions: As discussed you have a viral illness. Unfortunately there are no specific medications we can give you to make the illness end faster. Antibiotics do not work for viral illnesses. However, you can take Acetaminophen or Ibuprofen to help with fevers and pain. Stay well hydrated and rested. Return to the emergency department if your fevers and chills continue to worse after 5 days, if you develop worsening cough with thick sputum, or are unable to stay hydrated. Contact your primary care provider in the next few days for a re-evaluation and to make sure your symptoms are improving. Patient Language: Citizen Of [place] Prescriptions: New ondansetron 4 mg tablet,disintegrating 4 mg PO Q6H PRN (Reason: nausea and vomiting) Qty: 10 0RF No Action cholecalciferol (vitamin D3) 125 mcg (5,000 unit) capsule 125 mcg PO DAILY (DME) Nasal pillow mask for CPAP See Rx Instructions .Route .MEDSUPPLY Qty: 1 0RF Rx Instructions: As directed imipramine HCl 10 mg tablet 50 mg PO QHS Qty: 450 1RF latanoprost 0.005 % drops EACH EYE fluticasone propionate 50 mcg/actuation spray,suspension intranasal magnesium oxide 400 mg (241.3 mg magnesium) Tablet 400 mg PO QAM Qty: 30 0RF rosuvastatin 40 mg tablet 40 mg PO DAILY (DME) CPAP See Rx Instructions .Route .MEDSUPPLY Qty: 1 0RF Rx Instructions: Resmed AirSense 11 AutoPAP 5-15 cm H2O, CPAP mask/filters/tubing and humidifier chamber. Eliquis 5 mg tablet 5 mg PO Q12HR Qty: 60 1RF (DME) lancets [OneTouch Delica Plus Lancet] 30 gauge misc See Rx Instructions .Route Qty: 200 3RF Rx Instructions: Use to check BS TID (DME) OneTouch Ultra Test Strip See Rx Instructions .Route Qty: 100 3RF Rx Instructions: Use to check BS daily Mounjaro 2.5 mg/0.5 mL pen injector 2.5 mg subcut WEEKLY 28 Days Qty: 6 3RF metformin 500 mg tablet 500 mg PO BID Qty: 180 1RF metoprolol succinate 50 mg tablet extended release 24 hr 50 mg PO DAILY Qty: 90 1RF amiodarone [Pacerone] 200 mg tablet 200 mg PO DAILY Qty: 90 1RF amlodipine 10 mg tablet 10 mg PO QAM Qty: 90 3RF allopurinol 100 mg tablet 200 mg PO DAILY Qty: 180 1RF potassium chloride 10 mEq tablet extended release 10 meq PO DAILY Qty: 90 2RF omeprazole 20 mg capsule,delayed release(DR/EC) 20 mg PO DAILY Qty: 90 1RF gabapentin 400 mg capsule 400 mg PO TID Qty: 270 3RF Follow-up/Referrals: Tio Shea MD [Primary Care Provider] - 1 Week
[2024-07-25] MEDS: ONDANSETRON INJ 4 MG/2 ML VIAL IV PUSH (12:27)
[2024-07-25] MEDS: SODIUM CHLORIDE 0.9% IV 1,000 ML 999 ML IV CONT (12:28)
[2024-07-25 12:29] VITALS: BP 147/93; PULSE 86; RESP 20; O2SAT 96
[2024-07-25 12:33] LABS: Basophils Absolute Auto 0.1 K/mm3 (0.0-0.1); Basophils Percent Auto 0.5 % (0.2-1.2); Hematocrit 40.7 % (37.0-47.0); Hemoglobin 14.3 g/dL (12.0-15.0); Immature Granulocyte Absolute 0.09 K/mm3 (0.00-0.031); Immature Granulocyte Percent A 0.7 % (0-0.5); Lymphocytes Absolute Auto 1.27 K/mm3 (0.9-3.2); Lymphocytes Percent Auto 9.6 % (18.3-44.2); Mean Corpuscular HGB Conc 35.1 g/dl (32-36); Mean Corpuscular Hemoglobin 31.5 pg (26-34); Mean Corpuscular Volume 89.6 fl (80-100); Mean Platelet Volume 10.4 fl (7.4-10.4); Monocytes Absolute Auto 0.6 K/mm3 (0.1-0.6); Monocytes Percent Auto 4.8 % (2.6-8.5); Neutrophils Absolute Auto 11.2 K/mm3 (1.3-6.7); Neutrophils Percent Auto 84.4 % (45.5-73.1); Platelet Count Result 465 k/mm3 (150-375); Red Blood Count 4.54 M/mm3 (4.2-5.4); Red Cell Distribution Width 14.9 % (11.5-14.5); White Blood Count 13.3 K/mm3 (4.5-10.0)
[2024-07-25 12:47] LABS: Alanine Aminotransferase 125 U/L (6-35); Albumin Level 4.6 g/dL (3.5-5.1); Alkaline Phosphatase 111 U/L (38-126); Anion Gap 11 mmol/L (4-12); Aspartate Amino Transferase 100 U/L (14-36); Bilirubin,Total 0.8 mg/dL (0.2-1.3); Blood Urea Nitrogen 19 mg/dL (7-17); Calcium 10.5 mg/dL (8.4-10.2); Carbon Dioxide 28 mmol/L (22-30); Chloride 103 mmol/L (98-107); Estimated Glomerular Filt Rate 40; Glucose 120 mg/dL (65-110); Lipase 89 U/L (23-300); Sodium 142 mmol/L (137-145)
[2024-07-25 13:08] LABS: Influenza A QL RT-PCR Negative (Negative); Influenza B QL RT-PCR Negative (Negative); RSV RNA, RT-PCR Positive (Negative); SARS-CoV-2 RNA PCR Negative (Negative)
[2024-07-25 13:29] LABS: Add Urine Microscopic? YES; Appearance Urine Cloudy (Clear); Bacteria Urine None Seen /hpf; Bilirubin Urine Negative (Negative); Blood Urine 3+ (Negative); Color Urine Yellow (Yellow); Glucose Urine UA Negative (Negative); Ketones Urine 1+ mg/dL (Negative); Leukocyte Esterase Ur Trace LEU/UL (Negative); Nitrate Urine Negative (Negative); Protein Urine 3+ mg/dL (Negative); RBC Urine 0-2 /hpf (0-2); Specific Grav Ur 1.015 (1.001-1.035); Squamous Epithelial Cell Urine None Seen /hpf (Few); Urobilinogen Urine 0.2 mg/dL (<2.0); WBC Urine 21-50 /hpf (0-3)
[2024-07-25] MEDS: POTASSIUM CHLORIDE 20 MEQ ER TABLET 40 MEQ PO (14:05)
[2024-07-25 14:08] VITALS: BP 146/79; PULSE 98; RESP 16
[2024-07-25 14:09] VITALS: BP 146/79; PULSE 90; RESP 13; O2SAT 99
[2024-07-25 14:16] VITALS: BP 149/78; PULSE 84; RESP 18; O2SAT 95
[2024-07-25 15:01] VITALS: BP 141/80; PULSE 84; RESP 19; O2SAT 93
--- OUTSIDE RECORDS SUMMARY | 2024-08-01 16:57 | XMS_ITS | Encounter Summary ---
Author Organization [facility] Address [address] [place] [address] Care Team Providers Care Radiocommunications Technician Name Role Phone Tio Shea MD Primary Care Provider [phone] Encounter Details Date Type Department Care Team (Late st Contact Info) Description 04/29/2023 Telephone [facility] Cardiology [address] [place] [address] Kurtis Abdalla MD [address] [place] [address] Social History Tobacco Use Types Packs/Day Years Used Date Smoking Tobacco: Never Passive Smoke Exposure: Never Smokeless Tobacco: Never AUDIT-C Answer Date Recorded Q1: How often do you have a drink containing alcohol? Never 12/26/2022 Q2: How many drinks containi ng alcohol do you have on a typical day when you are drinking? Patient does not drink Frequency of Binge Drinking Not on file 12/04 Personal Safety Answer Date Recorded Have you ever been in or are you currently in a harmful physical or emotional relationship or is someone making you feel afraid or unsafe? 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 documented in this encounter Plan of Treatment Not on file documented as of this encounter Visit Diagnoses Not on filedocumented in this encounter Care Teams Radiocommunications Technician Relationship Specialty Start Date End Date Tio Shea MD PCP - General Family Medicine 05/01/21 documented as of this encounter
--- OUTSIDE RECORDS SUMMARY | 2024-08-01 16:57 | XMS_ITS | Referral Summary ---
Author Organization [facility] Address [address] [place] [address] Care Team Providers Care Curatorial Specialist Name Role Phone Tio Shea MD Primary Care Provider [phone] Encounters Date Type Department Care Team Description 07/23/2024 2:30 PM BARREL INSPECTOR Office Visit [facility] Cardiology [address] [place] [address] Alysa Puckett NP Paroxysmal atrial flutter (CMS/HCC) (HCC) (Primary Dx); Chronic anticoagulation; Hypertension associated with diabetes (HCC); Mixed diabetic hyperlipidemia associated with type 2 diabetes mellitus (HCC) from Last 3 Months Allergies No known active allergies Medications omeprazole (PriLOSEC) 20 mg capsule Take 1 capsule (20 mg total) by mouth daily 11/20/19 23 Active amLODIPine (NORVASC) 10 mg tablet Take 1 tablet (10 mg total) by mouth every morning 12/22/19 23 Active metoprolol XL (TOPROL-XL) 50 mg extended release tabletIndication s:Paroxysmal atrial fibrillation (CMS/HCC) (HCC) Take 1 tablet (50 mg total) by mouth daily 90 tablet 3 12/27/19 23 Active amiodarone (PACERONE) 200 mg tabletIndication s:Paroxysmal atrial fibrillation (CMS/HCC) (HCC) Take 1 tablet (200 mg total) by mouth daily 30 tablet 03/14/20 23 Active allopurinoL (ZYLOPRIM) 100 mg tablet Take 1 tablet (100 mg total) by mouth daily 03/08/20 23 Active cholecalciferol (Vitamin D3) 2000 unit tablet Act rajni Eliquis 5 mg tablet Take 1 tablet (5 mg total) by mouth every 12 (twelve) hours 180 tablet 2 11/08/19 24 Active magnesium gluconate 200 mg tabletIndication s:hypomagnesemia 1 tablet (200 mg total) Active Mounjaro 2.5 mg/0.5 mL pen injector INJECT 2.5 MG (0.5 ML) SUBCUTANEOUSLY WEEKLY FOR 4 WEEKS 01/16/20 24 Active potassium chloride ER 10 mEq CR tablet Take 1 tablet/capsule (10 mEq total) by mouth daily 11/15/19 24 Active metFORMIN (GLUCOPHAGE) 500 mg tablet Take 1 tablet (500 mg total) by mouth 2 (two) times a day 12/27/19 24 Active latanoprost (XALATAN) 0.005 % ophthalmic solution INSTILL 1 DROP INTO BOTH EYES EVERY NIGHT AT BEDTIME 06/08/20 24 Active rosuvastatin (CRESTOR) 40 mg tablet Take 1 tablet (40 mg total) by mouth daily 90 tablet 3 07/23/20 24 025 Active imipramine (TOFRANIL) 10 mg tablet Take 1 tablet (10 mg total) by mouth nightly Will gradually taper up 07/17/20 24 Active gabapentin (NEURONTIN) 100 mg capsule Take 1 capsule (100 mg total) by mouth 3 (three) times a day 90 capsule 12/12/19 23 024 Discontin ued(Alter brianna therapy) furosemide (LASIX) 20 mg tablet Take 1 tablet (20 mg total) by mouth daily 024 Discontin ued(Thera py completed ) rosuvastatin (CRESTOR) 40 mg tablet Take 1 tablet (40 mg total) by mouth daily 30 tablet 11 07/19/20 23 024 Discontin ued(Reord er) Active Problems Problem Noted Date Diagnosed Date At risk for amiodarone toxicity with group home u se 01/29/2023 Chronic anticoagulation 01/29/2023 Hypertension associated with diabetes 01/29/2023 Mixed diabetic hyperlipidemi a associated with type 2 diabetes mellitus 01/29/2023 Localized edema 01/29/2023 Atrial fibrillation (CMS/HCC) 12/11/2022 Paroxysmal atrial flutter (CMS/HCC) 12/11/2022 Leukocytosis 12/11/2022 Type 2 diabetes mellitus 12/11/2022 Syncope and collapse 12/03/2022 Sensorineural hearing loss (SNHL) of both ears 0 03/28/2015 Resolved Problems Problem Noted Date Diagnosed Date Resolved Date Hypokalemia 12/11/2022 12/11/2022 Prolonged Q-T interval on ECG 12/11/2022 12/11/2022 KARINA (acute kidney injury) 12/11/2022 Hypophosphatemia 12/11/2022 12/11/2022 Metabolic alkalosis 12/11/2022 12/12/19 Urinary tract infection 12/11/2022 0504/2023 Social History Tobacco Use Types Packs/Day Years Used Date Smoking Tobacco: Never Passive Smoke Exposure: Never Smokeless Tobacco: Never Tobacco Cessation:Counseling Given: Not Answered AUDIT-C Answer Date Recorded Q1: How often [...] on file 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 Gender Identity Not on file Sexual Orientation Not on file Last Filed Vital Signs Vital Sign Reading Time Taken Comments Blood Pressure 136/74 07/23/2024 2:44 PM BARREL INSPECTOR Pulse 84 07/23/2024 2:44 PM BARREL INSPECTOR Temperature 36.8 ??C (98.3 ??F) 12/11/2022 4:09 AM CD T Respiratory Rate 18 12/11/2022 11:30 AM CDT Oxygen Saturation 93% 07/23/2024 2:44 PM BARREL INSPECTOR Inhaled Oxygen Concentration - - Weight 68 kg (150 lb) 07/23/2024 2:44 PM BARREL INSPECTOR Height 152.4 cm (5') 07/23/2024 2:44 PM BARREL INSPECTOR Body Mass Index 29.29 07/23/2024 2:44 PM BARREL INSPECTOR Plan of Treatment Not on file Procedures Procedure Name Priority Date/Time Associated Diagnosis Comments COMPREHENSIVE METABOLIC PANEL Routine 01/24/2024 1:29 PM CDT Paroxysmal atrial flutter (CMS/HCC) (HCC) Chronic anticoagulation At risk for amiodarone toxicity with group home use LIPID PANEL Routine 09/09/2023 10:30 AM BARREL INSPECTOR HEMOGLOBIN A1C Routine 12/04/2022 6:04 AM CDT from Last 3 Months or Most Recently Relevant to Health Maintenance Results * (ABNORMAL) Comprehensive metabolic panel (01/24/2024 1:29 PM CDT) Pathologist [facility] Glucose 102(H) 70 - 99 mg/dL [facility] - 01 BUN 21 8 - 27 mg/dL [facility] - 01 Creatinine, Serum 1.42(H) 0.57 - 1.00 mg/dL [facility] - 01 eGFR 40(L) >59 mL/min/1.7 3 [facility] - 01 BUN/creat ratio 15 12 - 28 [facility] - 01 Sodium 144 134 - 144 mmol/L [facility] - 01 Potassium, sr 3.9 3.5 - 5.2 mmol/L [facility] - 01 Chloride 102 96 - 106 mmol/L [facility] - 01 CO2 26 20 - 29 mmol/L [facility] - 01 Calcium 11.0(H) 8.7 - 10.3 mg/dL [facility] - 01 Protein, sr 7.0 6.0 - 8.5 g/dL [facility] - 01 Albumin 4.5 3.9 - 4.9 g/dL [facility] - 01 Globulin, Total 2.5 1.5 - 4.5 g/dL [facility] - 01 Bilirubin, Total 0.3 0.0 - 1.2 mg/dL [facility] - 01 Alk phos 120 44 - 121 IU/L [facility] - 01 AST 26 0 - 40 IU/L [facility] - 01 ALT 32 0 - 32 IU/L [facility] - 01 Blood 01/24/2024 1:29 PM CDT 01/24/2024 Narrative [facility] - 01/25/2024 7:11 AM CDT Performed at: ??[address] ??[id number] Belt Sander: Dominic Alicea PhD, Phone: ??[phone] Belinda Smith MD LAB BLOOD ORDERABLES Fi nal Result Performing Organization Address [facility] Co de Phone Number [facility] - * (ABNORMAL) Lipid panel (09/09/2023 10:30 AM BARREL INSPECTOR) Cholesterol 146 100 - 199 mg/dL [facility] - 01 Triglycerides 153(H) 0 - 149 mg/dL [facility] - 01 HDL Cholesterol 42 >39 mg/dL [facility] - 01 VLDL 27 5 - 40 mg/dL [facility] - 01 LDL, calculated 77 0 - 99 mg/dL [facility] - 01 09/09/2023 10:3 0 AM BARREL INSPECTOR 09/09/2023 Narrative [facility] - 09/10/2023 2:08 AM BARREL INSPECTOR Performed at: ??01 - [facility] [address] ??[id number] Belt Sander: Dominic Alicea PhD, Phone: ??[phone] Specimen Comment: A courtesy copy of this report has been sent to [phone] Kurtis Abdalla MD LAB BLOOD ORDERABLES Fin al Result Performing Organization Address [facility] de Phone Number [facility] - * (ABNORMAL) Hemoglobin A1c (12/04/2022 6:04 AM CDT) Hgb A1C 7.3(H) 4.0 - 5.6 % ARMANDO REINA Estimated Average Glucose 163 mg/dL [facility] Comment: The ADA recommends reporting an estimated Average Glucose (eAG) with all Hemoglobin A1c results using the equation derived from a study of 507 normal and diabetic adults. ??Minority populations were underrepresented and children were not included. ?? (Diabetes Care 2020; 43(S1): S66-S76). ??The eAG is not equivalent to a fasting glucose. Blood 12/04/2022 6:04 AM CDT 12/04/2022 6:26 AM CDT us Bolivar Mclaughlin MD LAB BLOOD ORDERABLES Final Re sult [facility] Department [place] [address] from Last 3 Months or Most Recently Relevant to Health Maintenance Insurance MEDICARE COMMERCIAL [facility] MEDICARE COMMERCIAL GENERIC MEDICARE COMMERCIAL GENERIC Advance Directives For more information, please contact: [phone] * Full Code (Latest Code Status on File) Date Activated Date Inactivated Comments 12/04/2022 12:05 AM 12/11/2022 8:28 PM Care Teams Curatorial Specialist Relationship Specialty Start Date End Date Tio Shea MD PCP - General Family Medicine 05/01/21
--- OUTSIDE RECORDS SUMMARY | 2024-08-01 16:57 | XMS_ITS | Encounter Summary ---
Author Organization [facility] Healthcare Address [address] [place] [address] Care Team Providers Care Scientific Systems Analyst Name Role Phone Tio Shea MD Primary Care Provider [phone] Reason for Visit * Reason Comments Follow-up Transferring from Dr Kemi Abdalla Atrial Flutter Encounter Details Date Type Department Care Team (Latest Contact Info) Description 01/24/2024 1:00 PM CDT Office Visit [facility] Cardiology [address] [place] [address] Belinda Smith MD [address] [address] Paroxysmal atrial flutter (CMS/HCC) (HCC) (Primary Dx); Hypertension associated with diabetes (HCC); Chronic anticoagulation; Mixed diabetic hyperlipidemia associated with type 2 diabetes mellitus (HCC); At risk for amiodarone toxicity with watermelon inspector use Social History Tobacco Use Types Packs/Day Years [...] on file Legal Sex Female 6:47 PM RN CARDIAC [facility] Gender Identity Not on file Sexual Orientation Not on file documented as of this encounter Last Filed Vital Signs Vital Sign Reading Time Taken Comments Blood Pressure 104/60 01/24/2024 12:54 PM CDT Pulse 66 01/24/2024 12:54 PM CDT Temperature - - Respiratory Rate - - Oxygen Saturation 95% 01/24/2024 12:54 PM CDT Inhaled Oxygen Concentration - - Weight 74.1 kg (163 lb 6.4 oz) 01/24/2024 12:54 PM CDT Height 152.4 cm (5') 01/24/2024 12:54 PM CDT Body Mass Index 31.91 01/24/2024 12:54 PM CDT documented in this encounter Progress Notes * Belinda Smith MD - 01/24/2024 1:00 PM CDT CARDIOLOGY CLINIC NOTE CHIEF COMPLAINT / REASON FOR VISIT: F/U Atrial flutter HISTORY: Stella Carroll is a 68 y.o. female with the following history: Paroxysmal atrial flutter on Eliquis Hypertension Hyperlipidemia Type 2 diabetes mellitus Interim History: Transitioning care from Dr. Abdalla. Since last visit with us, patient has been doing well from a cardiac standpoint. Has pain from Shingles, however, no cardiac issues. Tolerating Eliquis well. REVIEW OF SYSTEMS: GENERAL: As per HPI CVS: As per HPI HEME: No bruising, no bleeding PHYSICAL EXAMINATION: BP 104/60 (BP Location: Left arm, Patient Position: Sitting) Pulse 66 Ht 152.4 cm (5') Wt 74.1 kg (163 lb 6.4 oz) SpO2 95% BMI 31.91 kg/m?? GENERAL: Alert, in no distress HEAD: Normocephalic and atraumatic EYES: Extra ocular movement intact ENT: Unremarkable NECK: Supple with midline trachea CHEST: Clear to auscultation, no wheezes, rales or rhonchi, symmetric air entry CARDIAC: Regular rate and rhythm, S1 S2 normal, no murmur, rub, heaves, thrills or gallops SKIN: Warm and dry NEURO: Alert and oriented x 3 CARDIAC IMAGING RESULTS REVIEW: Transthoracic Echocardiogram 12/04/2022: Normal LV and RV size and systolic function. LVEF 76%. Normal LV wall thickness/mass. No WMA. No significant valvular abnormalities noted. Trace-mild MR. LA is normal. Normal RV cavity size. Strain quality is inadequate for accurate reporting. Normal diastolic function. Estimated PA systolic pressure 30+ RA (3) mmHg. Normal Inferior vena cava. Normal aorta. No prior study. ASSESSMENT/PLAN: Paroxysmal atrial flutter Continue Amiodarone 200mg once daily. Continue Metoprolol 50mg daily. Continue Eliquis 5mg BID for stroke risk reduction Hypertension At goal of <130/80mmHg. Continue Metoprolol 50mg once daily. Continue Amlodipine 10mg once daily. Hyperlipidemia Continue Rosuvastatin 40mg once daily. Belinda Smith M.D., [facility] Interventional Cardiology documented in this encounter Plan of Treatment Not on file documented as of this encounter Procedures Procedure Name Priority Date/Time Associated Diagnosis Comments CBC WITH AUTO DIFFERENTIAL Routine 01/24/2024 1:29 PM CDT Paroxysmal atrial flutter (CMS/HCC) (HCC) Chronic anticoagulation At risk for amiodarone toxicity with fci use TSH Routine 01/24/2024 1:29 PM CDT Paroxysmal atrial flutter (CMS/HCC) (HCC) Chronic anticoagulation At risk for amiodarone toxicity with watermelon inspector use COMPREHENSIVE METABOLIC PANEL Routine 01/24/2024 1:29 PM CDT Paroxysmal atrial flutter (CMS/HCC) (HCC) Chronic anticoagulation At risk for amiodarone toxicity with watermelon inspector use documented in this encounter Results * (ABNORMAL) CBC with auto differential (01/24/2024 1:29 PM CDT) WBC 10.8 3.4 - 10.8 x10E3/uL [facility] - 01 RBC 4.29 3.77 - 5.28 x10E6/uL [facility] - 01 Hgb 12.9 11.1 - 15.9 g/dL [facility] - 01 Hct 39.5 34.0 - 46.6 % [facility] - 01 MCV 92 79 - 97 fL [facility] - 01 MCH 30.1 26.6 - 33.0 pg [facility] - 01 MCHC 32.7 31.5 - 35.7 g/dL [facility] - 01 Rdw 15.2 11.7 - 15.4 % [facility] - 01 Platelets 409 150 - 450 x10E3/uL [facility] - 01 Neutrophils pct 75 Not Estab. % [facility] - 01 Lymphs pct 15 Not Estab. % [facility] - 01 Monocytes pct 6 Not Estab. % [facility] - 01 Eosinophils pct 3 Not Estab. % [facility] - 01 Basophil pct 1 Not Estab. % [facility] - 01 Neutrophil abs 8.1(H) 1.4 - 7.0 x10E3/uL [facility] - 01 Lymphs (Absolute) 1.6 0.7 - 3.1 x10E3/uL [facility] - 01 Monocyte abs 0.7 0.1 - 0.9 x10E3/uL [facility] - 01 Eosinophils, abs 0.3 0.0 - 0.4 x10E3/uL [facility] - 01 Basophils, abs 0.1 0.0 - 0.2 x10E3/uL [facility] - 01 Immature Granulocytes 0 Not Estab. % [facility] - 01 Immature Grans (Abs) 0.0 0.0 - 0.1 x10E3/uL [facility] - 01 Blood 01/24/2024 1:29 PM CDT 01/24/2024 Narrative [facility] - 01/25/2024 7:11 AM CDT Performed at: ??01 - [facility] [address] ??[id number] Event Marketing Representative: Dominic Alicea PhD, Phone: ??[phone] [place] [facility] Katie Smith MD LAB BLOOD ORDERABLES Fi nal Result [facility] - 01 * TSH (01/24/2024 1:29 PM CDT) TSH 2.010 0.450 - 4.500 uIU/mL [facility] - 01 Blood 01/24/2024 1:29 PM CDT 01/24/2024 Narrative [facility] - 01/25/2024 8:15 AM CDT Performed at: ??01 - [facility] ??[id number] Event Marketing Representative: Dominic Alicea PhD, Phone: ??[phone] [facility] Katie Smith MD LAB BLOOD ORDERABLES Fi nal Result [facility] - 01 * (ABNORMAL) Comprehensive metabolic panel (01/24/2024 1:29 PM CDT) Glucose 102(H) 70 - 99 mg/dL [facility] [...] 01/25/2024 7:11 AM CDT Performed at: ??01 - [facility] [address] ??[id number] Event Marketing Representative: Dominic Alicea PhD, Phone: ??[phone] [facility] Katie Smith MD LAB BLOOD ORDERABLES Fi nal Result [facility] - 01 documented in this encounter Visit Diagnoses Diagnosis Paroxysmal atrial flutter (CMS/HCC) (HCC)- Primary Hypertension associated with diabetes (HCC) Unspecified essential hypertension Chronic anticoagulation Encounter for long-term (current) use of anticoagulants Mixed diabetic hyperlipidemia associated with type 2 diabetes mellitus (HCC) At risk for amiodarone toxicity with fci use documented in this encounter Historical Medications * This list may reflect changes made after this encounter. metFORMIN (GLUCOPHAGE) 500 mg tablet Take 1 tablet (500 mg total) by mouth 2 (two) times a day 12/27/2023 potassium chloride ER 10 mEq CR tablet Take 1 tablet/capsule (10 mEq total) by mouth daily 11/15/2023 Mounjaro 2.5 mg/0.5 mL pen injector INJECT 2.5 MG (0.5 ML) SUBCUTANEOUSLY WEEKLY FOR 4 WEEKS 01/16/2024 magnesium gluconate 200 mg tabletIndicatio ns:hypomagnesem ia 1 tablet (200 mg total) added in this encounter Care Teams Scientific Systems Analyst Relationship Specialty Start Date End Date Tio Shea MD PCP - General Family Medicine 05/01/21 documented as of this encounter
--- OUTSIDE RECORDS SUMMARY | 2024-08-01 16:57 | XMS_ITS | Encounter Summary ---
Author Organization [facility] Address [address] [place] [address] Care Team Providers Care Night Warehouse Manager Name Role Phone Tio Shea MD Primary Care Provider [phone] Reason for Visit * Reason Comments Follow-up 1 mo f/u Atrial Flutter Encounter Details Date Type Department Care Team (Latest Contact Info) Description 01/29/2023 3:00 PM CDT Office Visit [facility] Cardiology [address] [place] [address] Kurtis Abdalla MD [address] [facility] [address] [place] [address] Paroxysmal atrial flutter (CMS/HCC) (HCC) (Primary Dx); Hypertension associated with diabetes (HCC); Mixed diabetic hyperlipidemia associated with type 2 diabetes mellitus (HCC); At risk for amiodarone toxicity with halfway use; Chronic anticoagulation; Localized edema Social History Tobacco Use Types Packs/Day Years [...] on file 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 Gender Identity Not on file Sexual Orientation Not on file documented as of this encounter Last Filed Vital Signs Vital Sign Reading Time Taken Comments Blood Pressure 120/70 01/29/2023 2:58 PM CDT Pulse 83 01/29/2023 2:58 PM CDT Temperature - - Respiratory Rate - - Oxygen Saturation 96% 01/29/2023 2:58 PM CDT Inhaled Oxygen Concentration - - Weight 78 kg (172 lb) 01/29/2023 2:58 PM CDT Height 152.4 cm (5') 01/29/2023 2:58 PM CDT Body Mass Index 33.59 01/29/2023 2:58 PM CDT documented in this encounter Progress Notes * Kurtis Abdalla MD - 01/29/2023 3:00 PM CDT Images from the original note were not included. 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 Flutter controlled maintaining sinus rhythm on amiodarone 200 mg daily and Toprol-XL 50 mg daily.. Continue current medical therapy and systemic anticoagulation for stroke risk reduction. CHADS2 Vasc score 3. -continue Eliquis 5 mg twice daily. Monitor for bleeding. Ambulate with caution. If falls, bleedingor head injury go to ER immediately. BP controlled, goal <130/80mmHg. Monitor BP on routine basis. Call with readings. Continue consistent cardiovascular exercise, weight loss, medication compliance, and low-sodium diet. -continue amlodipine 10 mg daily, Toprol XL 50 mg daily -Check BMP and Mg levels. Recommendation to follow after review. She is not taking magnesium supplementation but will need to review levels prior to resuming if necessary. Simplify potassium supplementation potassium chloride 20 mEq daily but recommendations to follow after review of labs. Lipids personally reviewed 12/03/22 LDL 116, not ideally controlled with goal LDL<70. Continue medical therapy and lifestyle modification. I would recommend discontinuation of simvastatin 80 mg due to high-risk for complications, interactions particularly with concomitant amlodipine 10 mg daily. Iwould recommend alternatives such as rosuvastatin 20 mg at bedtime and repeat fasting lipid profilein 2 months. Amiodarone toxicity counseling performed. Risks including but not limited to the eyes (amiodarone deposition), thyroid (hyper-hypothyroidism), lungs (pulmonary toxicity) and need for yearly PFTs, eyeexams, CXR, TSH, and routine blood work including LFT's discussed. Precautions with regard to possible photosensitivity while taking Amiodarone discussed. Notify office if unusual or progressive SOB o r changes in vision are noted. -continue amiodarone 200 mg daily for now. DM managed by PCP HgbA1C 7.3% 12/04/22 Lifestyle modification counseling performed. Continue consistent Weight loss, exercise, reduction in caloric intake. Extensively reviewed records from [facility] and [place] including consultation notes, echocardiogram, laboratory studies, pertinent imaging and ECG. Over 50% of this visit counseling atrial flutter, HTN, lipids, medications, lifestyle modification. Follow up in the office in 2 months or sooner as needed. Thank you for allowing me the privilege of participating in the care this very pleasant patient. Please do not hesitate to contact me with any additional questions or concerns. HPI Stella Carroll is a 67 y.o. female with a PMHx of paroxysmal atrial flutter with rapid ventricular response, hypertension, hyperlipidemia, [id number] mitral regurgitation seen in follow-up for atrial flutter. 01/29/23 Initial visit with me (originally seen by Dr Smith): Patient was admitted to [place] 12/2022 after discharge from [facility] approximately 1 monthprior found to be profoundly hypokalemic admitted to the ICU after presenting with recurrent syncopal episodes. Syncope was felt to be multifactorial due to polypharmacy, electrolyte abnormalities and UTI. Patient eventually was discharged on amiodarone and metoprolol with systemic anticoagulation. Since discharge she has not had any palps, CP or SOB, near syncope or syncope. Tires when she walks, mild edema in ankles. She is on Amiodarone 200mg daily, Eliquis 5mg BID, Amlodipine 10mg daily, Lasix 20mg daily and KCl 20MEQ daily and K sodium phosphate Toprol XL 50mg daily MEDICAL HISTORY Past Medical History: Diagnosis Date Atrial flutter (CMS/HCC) (HCC) Hyperlipidemia Hypertension Syncope SOCIAL HISTORY reports that she has never smoked. She has never been exposed to tobacco smoke. She has never used smokeless tobacco. Patient denies consuming alcoholic drinks. FAMILY HISTORY family history includes No Known Problems in her father and mother. MEDICATIONS HOME MEDICATIONS : amiodarone (PACERONE) 200 mg tablet amLODIPine (NORVASC) 10 mg tablet Eliquis 5 mg tablet furosemide (LASIX) 20 mg tablet gabapentin (NEURONTIN) 100 mg capsule imipramine (TOFRANIL) 50 mg tablet Klor-Con M20 20 mEq CR tablet magnesium oxide (MAG-OX) 400 mg (241.3 mg elemental magnesium) tablet melatonin tablet metoprolol XL (TOPROL-XL) 50 mg extended release tablet omeprazole (PriLOSEC) 20 mg capsule potassium, sodium phosphates (PHOS-NAK) 280-160-250 mg powder in packet simvastatin (ZOCOR) 80 mg tablet furosemide (LASIX) 20 mg tablet ALLERGIES No Known Allergies REVIEW OF SYSTEMS Review of Systems Constitutional: Positive for malaise/fatigue. Negative for decreased appetite, diaphoresis, fever, night sweats, weight gain and weight loss. HENT: Negative for hearing loss and nosebleeds. Eyes: Negative for blurred vision and pain. Cardiovascular: Positive for dyspnea on exertion and leg swelling. Negative for chest pain, claudication, irregular heartbeat, near-syncope, orthopnea, palpitations and syncope. Respiratory: Negative for cough, hemoptysis, shortness of breath, snoring and wheezing. Endocrine: Negative for cold intolerance and heat intolerance. Hematologic/Lymphatic: Negative for bleeding problem. Does not bruise/bleed easily. Skin: Negative for color change, itching, rash and suspicious lesions. Musculoskeletal: Positive for joint pain. Negative for falls, muscle weakness and myalgias. Gastrointestinal: Negative for abdominal pain, heartburn, hematemesis, melena and nausea. Genitourinary: Negative for dysuria, hematuria and nocturia. Neurological: Negative for excessive daytime sleepiness, dizziness, focal weakness, headaches, light-headedness, loss of balance and weakness. Psychiatric/Behavioral: Negative for altered mental status, depression and memory loss. The patientis not nervous/anxious. Allergic/Immunologic: Negative for environmental allergies. All other systems reviewed and are negative. PHYSICAL EXAM Vitals BP 120/70 (BP Location: Left arm, Patient Position: Sitting) Pulse 83 Ht 152.4 cm (5') Wt 78 kg (172 lb) SpO2 96% BMI 33.59 kg/m?? Weight: 78 kg (172 lb) Height: 152.4 cm (5') Body mass index is 33.59 kg/m??. Physical Exam Vitals reviewed. Constitutional: General: She is not in acute distress. Appearance: Normal appearance. She is well-developed. She is obese. She is not diaphoretic. HENT: Head: Normocephalic and atraumatic. Right Ear: External ear normal. Left Ear: External ear normal. Nose: Nose normal. Mouth/Throat: Mouth: Mucous membranes are moist. Dentition: Normal dentition. Eyes: General: Lids are normal. No scleral icterus. Extraocular Movements: Extraocular movements intact. Conjunctiva/sclera: Conjunctivae normal. Neck: Thyroid: No thyromegaly. Vascular: Normal carotid pulses. No carotid bruit, hepatojugular reflux or JVD. Trachea: No tracheal deviation. Cardiovascular: Rate and Rhythm: Normal rate and regular rhythm. Pulses: Normal pulses and intact distal pulses. No decreased pulses. Heart sounds: S1 normal and S2 normal. Heart sounds not distant. Murmur heard. Medium-pitched early systolic murmur is present with a grade of 3/6. No friction rub. No gallop. No S3 or S4 sounds. Pulmonary: Effort: Pulmonary effort is normal. No respiratory distress. Breath sounds: Normal breath sounds. No wheezing or rales. Chest: Chest wall: No tenderness. Abdominal: General: Bowel sounds are normal. There is no distension. Palpations: Abdomen is soft. There is no mass. Tenderness: There is no abdominal tenderness. There is no guarding or rebound. Musculoskeletal: General: No tenderness or deformity. Normal range of motion. Cervical back: Normal range of motion and neck supple. Right lower leg: Edema present. Left lower leg: Edema present. Comments: Trace to 1+ pedal edema into ankles bilaterally Lymphadenopathy: Cervical: No cervical adenopathy. Skin: General: Skin is warm and dry. Coloration: Skin is not pale. Findings: No ecchymosis, erythema, petechiae or rash. Nails: There is no clubbing. Neurological: General: No focal deficit present. Mental Status: She is alert and oriented to person, place, and time. Mental status is at baseline. Cranial Nerves: No cranial nerve deficit. Motor: No abnormal muscle tone. Coordination: Coordination normal. Psychiatric: Mood and Affect: Mood normal. Speech: Speech normal. Behavior: Behavior normal. Behavior is cooperative. Thought Content: Thought content normal. Judgment: Judgment normal. LABS AND OTHER DIAGNOSTIC TESTS Lab Results Component Value Date CHOL 183 12/03/2022 HDL 45 12/03/2022 LDLCALC 116 12/03/2022 CHOLHDL 4 12/03/2022 TRIG 109 12/03/2022 SODIUM 139 12/11/2022 POTASSIUM 3.9 12/11/2022 CO2 29 12/11/2022 BUNSER 13 12/11/2022 GLUCOSE 136 12/11/2022 CREATININE 0.89 12/11/2022 CALCIUM 9.4 12/11/2022 CHLORIDE 101 12/11/2022 ALBUMIN 3.0 (L) 12/05/2022 ALT 18 12/05/2022 AST 36 12/05/2022 ALKPHOS 87 12/05/2022 BILITOT 0.2 12/05/2022 PROT 6.3 (L) 12/05/2022 WBC 13.6 (H) 12/10/2022 HGB 9.4 (L) 12/10/2022 TSH 0.90 12/03/2022 No results found for: POCCHOL, POCHDL, POCTRIG, POCLDL, POCNONHDL, POCCHLPL Results for orders placed or performed during the hospital encounter of 12/03/22 Urinalysis reflex to microscopic and culture Urine Specimen: Urine Result Value Ref Range Color, ur Straw Yellow Clarity, ur Clear Clear Specific gravity, ur 1.017 1.003 - 1.030 pH, urine 6.0 Protein, ur ql 1+ (A) Negative Glucose, ur ql Negative Negative Ketones, ur Negative Negative Bilirubin, ur Negative Negative Blood, ur Negative Negative Urobilinogen, ur <2.0 <2.0 mg/dL Nitrite, ur Negative Negative Leukocyte esterase, ur 2+ (A) Negative UA reflex comment Reflex to microscopic UA will be performed. Urine culture Urine Specimen: Urine Result Value Ref Range Report Final Report: Less than 100,000 colonies/mL (clinically insignificant growth based on current clinical standards) Organism (CLINICALLY INSIGNIFICANT GROWTH Infection Prevention MRSA Only (Staphylococcus aureus) Culture Nasal Specimen: Nasal Result Value Ref Range Report Final Report: Negative CBC with auto differential Result Value Ref Range WBC 18.9 (H) 3.8 - 9.9 K/cumm Hgb 14.4 11.9 - 15.5 g/dL Hct 40.0 35.6 - 45.5 % Plt 490 (H) 150 - 400 K/cumm MPV 12.1 9.1 - 12.3 fL RBC 4.55 3.90 - 5.20 M/cumm MCV 87.9 81.3 - 96.4 fL MCH 31.6 27.1 - 33.3 pg MCHC 36.0 (H) 32.3 - 35.7 g/dL RDW CV 13.3 11.1 - 14.9 % RDW SD 42.9 35.7 - 48.1 fL NRBC abs 0.00 0.00 - 0.01 K/cumm Basic metabolic panel Result Value Ref Range Sodium 139 135 - 145 mmol/L Potassium, pl 2.1 (Critical) 3.3 - 4.9 mmol/L Chloride 74 (Critical) 97 - 110 mmol/L CO2 >45 (Critical) 22 - 32 mmol/L Anion gap <20 (H) 2 - 15 mmol/L BUN 50 (H) 8 - 25 mg/dL Creatinine 1.39 (H) 0.60 - 1.10 mg/dL Glucose 184 70 - 199 mg/dL Calcium 10.8 (H) 8.5 - 10.3 mg/dL Troponin I high-sensitivity series (baseline, 2hr, 4hr, 6hr) Result Value Ref Range Trop I hs 88 (H) <=17 ng/L Magnesium Result Value Ref Range Magnesium 2.3 1.4 - 2.5 mg/dL TSH reflex to free T4 Result Value Ref Range TSH 0.90 0.30 - 4.20 mcIUnit/mL Differential, auto Result Value Ref Range Neutrophil abs 15.3 (H) 1.7 - 6.5 K/cumm Imm gran abs 0.1 0.0 - 0.1 K/cumm Lymphocyte abs 1.9 0.8 - 3.3 K/cumm Monocyte abs 1.5 (H) 0.2 - 0.8 K/cumm Eosinophil abs 0.0 0.0 - 0.5 K/cumm Basophil abs 0.1 0.0 - 0.1 K/cumm Neutrophil pct 80.8 % Imm gran pct 0.5 % Lymphocyte pct 10.0 % Monocyte pct 8.1 % Eosinophil pct 0.2 % Basophil pct 0.4 % Troponin I high-sensitivity 2-hour Result Value Ref Range Trop I hs 108 (H) <=17 ng/L Trop I hs delta 20 (Critical) ng/L Trop I hs interp Significant (Critical) Troponin I high-sensitivity 4-hour Result Value Ref Range Trop I hs 104 (H) <=17 ng/L Trop I hs delta 16 (Critical) ng/L Trop I hs interp Significant (Critical) eGFR Result Value Ref Range eGFR 41 (L) 90 - 130 mL/min/1.73 m2 Critical Result Callback Chemistry Result Value Ref Range Date Notified 20221203 Time Notified 2034 TestName Chloride Called/Read Back [place] Rodney Credentials Called By O Blood gas, venous Result Value Ref Range pH, Venous 7.54 (H) 7.32 - 7.43 PCO2, Venous 62 (H) 40 - 50 mmHg PO2, Venous 28 mmHg HCO3 Venous, Calculated 55 (Critical) 20 - 30 mmol/L BE, venous 25 mmol/L Basic metabolic panel Result Value Ref Range Sodium 138 135 - 145 mmol/L Potassium, pl 1.9 (Critical) 3.3 - 4.9 mmol/L Chloride 75 (Critical) 97 - 110 mmol/L CO2 >45 (Critical) 22 - 32 mmol/L Anion gap <18 (H) 2 - 15 mmol/L BUN 53 (H) 8 - 25 mg/dL Creatinine 1.44 (H) 0.60 - 1.10 mg/dL Glucose 188 70 - 199 mg/dL Calcium 10.9 (H) 8.5 - 10.3 mg/dL Basic metabolic panel Result Value Ref Range Sodium 139 135 - 145 mmol/L Potassium, pl 2.4 (Critical) 3.3 - 4.9 mmol/L Chloride 83 (L) 97 - 110 mmol/L CO2 >45 (Critical) 22 - 32 mmol/L Anion gap <11 2 - 15 mmol/L BUN 48 (H) 8 - 25 mg/dL Creatinine 1.37 (H) 0.60 - 1.10 mg/dL Glucose 171 70 - 199 mg/dL Calcium 9.4 8.5 - 10.3 mg/dL Potassium, whole blood Result Value Ref Range Potassium, bld 2.0 (Critical) 3.3 - 4.9 mmol/L Critical Result Callback Chemistry Result Value Ref Range Date Notified 20221203 Time Notified 2103 TestName Potassium WB Called/Read Back Potassium WB Credentials RN Called By o Critical Result Callback Chemistry Result Value Ref Range Date Notified 20221203 Time Notified 2108 TestName HCO3 Roldan (Calc) Called/Read Back Trans, Kae Credentials RN Called By [facility] Urinalysis, microscopic only Result Value Ref Range WBC, ur 21-50 (A) 0 - 5 /HPF RBC, ur 3-5 (A) 0 - 2 /HPF Epithelial cells, squamous, ur 1-5 0 - 5 /HPF Epithelial cells, renal, ur 1-5 (A) 0 - 0 /HPF Amorphous crystals, ur Trace (A) Hyaline casts, ur 11-20 (A) 0 - 10 /LPF Granular casts, ur 1-5 (A) 0 - 0 /LPF Waxy casts, ur 1-5 (A) 0 - 0 /LPF Culture Reflex Comment Reflex to urine culture will be performed. Critical Result Callback Chemistry Result Value Ref Range Date Notified 20221203 Time Notified 2157 TestName potassium plasma, co2 total, and chloride Called/Read Back Kingston Espinoza MD Called By br eGFR Result Value Ref Range eGFR 39 (L) 90 - 130 mL/min/1.73 m2 Lipid panel Result Value Ref Range Cholesterol 183 30 - 199 mg/dL Triglycerides 109 <=149 mg/dL HDL 45 >=40 mg/dL LDL, calculated 116 <=129 mg/dL Non-HDL Cholesterol 138 mg/dL Chol/HDL ratio 4 Critical result callback Cardio chemistry Result Value Ref Range Date Notified 20221203 Time Notified 2199 Test name Troponin I hs Called/Read Back Kingston Espinoza MD Called By br Basic metabolic panel Result Value Ref Range Sodium 139 135 - 145 mmol/L Potassium, pl 2.4 (Critical) 3.3 - 4.9 mmol/L Chloride 85 (L) 97 - 110 mmol/L CO2 >45 (Critical) 22 - 32 mmol/L Anion gap <9 2 - 15 mmol/L BUN 45 (H) 8 - 25 mg/dL Creatinine 1.25 (H) 0.60 - 1.10 mg/dL Glucose 214 (H) 70 - 199 mg/dL Calcium 9.3 8.5 - 10.3 mg/dL Basic metabolic panel Result Value Ref Range Sodium 144 135 - 145 mmol/L Potassium, pl 2.6 (L) 3.3 - 4.9 mmol/L Chloride 90 (L) 97 - 110 mmol/L CO2 >45 (Critical) 22 - 32 mmol/L Anion gap <9 2 - 15 mmol/L BUN 43 (H) 8 - 25 mg/dL Creatinine 1.23 (H) 0.60 - 1.10 mg/dL Glucose 157 70 - 199 mg/dL Calcium 9.1 8.5 - 10.3 mg/dL Potassium, whole blood Result Value Ref Range Potassium, bld 2.4 (Critical) 3.3 - 4.9 mmol/L Potassium, whole blood Result Value Ref Range Potassium, bld 2.6 (L) 3.3 - 4.9 mmol/L Blood gas, venous Result Value Ref Range pH, Venous 7.48 (H) 7.32 - 7.43 PCO2, Venous 62 (H) 40 - 50 mmHg PO2, Venous 33 mmHg HCO3 Venous, Calculated 47 (Critical) 20 - 30 mmol/L BE, venous 18 mmol/L Magnesium Result Value Ref Range Magnesium 3.5 (H) 1.4 - 2.5 mg/dL Magnesium Result Value Ref Range Magnesium 3.1 (H) 1.4 - 2.5 mg/dL CBC with auto differential Result Value Ref Range WBC 13.2 (H) 3.8 - 9.9 K/cumm Hgb 11.5 (L) 11.9 - 15.5 g/dL Hct 33.5 (L) 35.6 - 45.5 % Plt 411 (H) 150 - 400 K/cumm MPV 12.0 9.1 - 12.3 fL RBC 3.74 (L) 3.90 - 5.20 M/cumm MCV 89.6 81.3 - 96.4 fL MCH 30.7 27.1 - 33.3 pg MCHC 34.3 32.3 - 35.7 g/dL RDW CV 13.6 11.1 - 14.9 % RDW SD 44.4 35.7 - 48.1 fL NRBC abs 0.00 0.00 - 0.01 K/cumm Critical Result Callback Chemistry Result Value Ref Range Date Notified 20221204 Time Notified 012 TestName Potassium Plas, CO2 Totl Called/Read Back Mindy Willis Credentials RN Called By [facility] [place] eGFR Result Value Ref Range eGFR 42 (L) 90 - 130 mL/min/1.73 m2 Critical Result Callback Chemistry Result Value Ref Range Date Notified 20221204 Time Notified 013 TestName Potassium WB Called/Read Back Tiffani Luis Credentials RN Called By [facility] [place] Critical Result Callback Chemistry Result Value Ref Range Date Notified 20221204 Time Notified 020 TestName Potassium Plas, CO2 Totl Called/Read Back Philip Jim Credentials RN Called By [facility] [place] eGFR Result Value Ref Range eGFR 47 (L) 90 - 130 mL/min/1.73 m2 Differential, auto Result Value Ref Range Neutrophil abs 9.7 (H) 1.7 - 6.5 K/cumm Imm gran abs 0.1 0.0 - 0.1 K/cumm Lymphocyte abs 2.2 0.8 - 3.3 K/cumm Monocyte abs 1.1 (H) 0.2 - 0.8 K/cumm Eosinophil abs 0.1 0.0 - 0.5 K/cumm Basophil abs 0.1 0.0 - 0.1 K/cumm Neutrophil pct 73.8 % Imm gran pct 0.5 % Lymphocyte pct 16.4 % Monocyte pct 8.3 % Eosinophil pct 0.5 % Basophil pct 0.5 % Critical Result Callback Chemistry Result Value Ref Range Date Notified 20221204 Time Notified 625 TestName HCO3 Roldan (Calc) Called/Read Back Yara Edward Credentials RN Called By Basic metabolic panel Result Value Ref Range Sodium 139 135 - 145 mmol/L Potassium, pl 2.8 (L) 3.3 - 4.9 mmol/L Chloride 91 (L) 97 - 110 mmol/L CO2 43 (H) 22 - 32 mmol/L Anion gap 5 2 - 15 mmol/L BUN 37 (H) 8 - 25 mg/dL Creatinine 1.16 (H) 0.60 - 1.10 mg/dL Glucose 319 (H) 70 - 199 mg/dL Calcium 8.9 8.5 - 10.3 mg/dL Basic metabolic panel Result Value Ref Range Sodium 142 135 - 145 mmol/L Potassium, pl 3.2 (L) 3.3 - 4.9 mmol/L Chloride 94 (L) 97 - 110 mmol/L CO2 38 (H) 22 - 32 mmol/L Anion gap 10 2 - 15 mmol/L BUN 33 (H) 8 - 25 mg/dL Creatinine 1.17 (H) 0.60 - 1.10 mg/dL Glucose 181 70 - 199 mg/dL Calcium 9.3 8.5 - 10.3 mg/dL Potassium, whole blood Result Value Ref Range Potassium, bld 2.7 (L) 3.3 - 4.9 mmol/L Potassium, whole blood Result Value Ref Range Potassium, bld 3.2 (L) 3.3 - 4.9 mmol/L Magnesium Result Value Ref Range Magnesium 2.7 (H) 1.4 - 2.5 mg/dL Magnesium Result Value Ref Range Magnesium 2.4 1.4 - 2.5 mg/dL eGFR Result Value Ref Range eGFR 48 (L) 90 - 130 mL/min/1.73 m2 Critical Result Callback Chemistry Result Value Ref Range Date Notified 20221204 Time Notified 653 TestName CO2 total Called/Read Back Michael Oliva Credentials RN Called By tmp Potassium, whole blood Result Value Ref Range Potassium, bld 3.4 3.3 - 4.9 mmol/L Phosphorus Result Value Ref Range Phosphorus, pl 0.8 (L) 2.3 - 4.5 mg/dL eGFR Result Value Ref Range eGFR 51 (L) 90 - 130 mL/min/1.73 m2 Phosphorus Result Value Ref Range Phosphorus, pl 2.3 2.3 - 4.5 mg/dL Hemoglobin A1c Result Value Ref Range Hgb A1C 7.3 (H) 4.0 - 5.6 % Estimated Average Glucose 163 mg/dL Phosphorus Result Value Ref Range Phosphorus, pl 2.6 2.3 - 4.5 mg/dL CBC with auto differential Result Value Ref Range WBC 12.0 (H) 3.8 - 9.9 K/cumm Hgb 10.4 (L) 11.9 - 15.5 g/dL Hct 31.1 (L) 35.6 - 45.5 % Plt 358 150 - 400 K/cumm MPV 12.4 (H) 9.1 - 12.3 fL RBC 3.38 (L) 3.90 - 5.20 M/cumm MCV 92.0 81.3 - 96.4 fL MCH 30.8 27.1 - 33.3 pg MCHC 33.4 32.3 - 35.7 g/dL RDW CV 14.2 11.1 - 14.9 % RDW SD 47.5 35.7 - 48.1 fL NRBC abs 0.00 0.00 - 0.01 K/cumm eGFR Result Value Ref Range eGFR 51 (L) 90 - 130 mL/min/1.73 m2 Basic metabolic panel Result Value Ref Range Sodium 141 135 - 145 mmol/L Potassium, pl 3.4 3.3 - 4.9 mmol/L Chloride 95 (L) 97 - 110 mmol/L CO2 40 (H) 22 - 32 mmol/L Anion gap 6 2 - 15 mmol/L BUN 31 (H) 8 - 25 mg/dL Creatinine 1.16 (H) 0.60 - 1.10 mg/dL Glucose 252 (H) 70 - 199 mg/dL Calcium 8.7 8.5 - 10.3 mg/dL Magnesium Result Value Ref Range Magnesium 2.0 1.4 - 2.5 mg/dL eGFR Result Value Ref Range eGFR 51 (L) 90 - 130 mL/min/1.73 m2 Phosphorus Result Value Ref Range Phosphorus, pl 2.4 2.3 - 4.5 mg/dL Phosphorus Result Value Ref Range Phosphorus, pl 2.2 (L) 2.3 - 4.5 mg/dL Magnesium Result Value Ref Range Magnesium 2.0 1.4 - 2.5 mg/dL Magnesium Result Value Ref Range Magnesium 1.9 1.4 - 2.5 mg/dL Basic metabolic panel Result Value Ref Range Sodium 143 135 - 145 mmol/L Potassium, pl 3.8 3.3 - 4.9 mmol/L Chloride 100 97 - 110 mmol/L CO2 39 (H) 22 - 32 mmol/L Anion gap 4 2 - 15 mmol/L BUN 24 8 - 25 mg/dL Creatinine 1.01 0.60 - 1.10 mg/dL Glucose 134 70 - 199 mg/dL Calcium 8.8 8.5 - 10.3 mg/dL Basic metabolic panel Result Value Ref Range Sodium 141 135 - 145 mmol/L Potassium, pl 3.7 3.3 - 4.9 mmol/L Chloride 98 97 - 110 mmol/L CO2 39 (H) 22 - 32 mmol/L Anion gap 4 2 - 15 mmol/L BUN 21 8 - 25 mg/dL Creatinine 1.01 0.60 - 1.10 mg/dL Glucose 214 (H) 70 - 199 mg/dL Calcium 8.9 8.5 - 10.3 mg/dL Potassium, whole blood Result Value Ref Range Potassium, bld 3.7 3.3 - 4.9 mmol/L Differential, auto Result Value Ref Range Neutrophil abs 7.7 (H) 1.7 - 6.5 K/cumm Imm gran abs 0.1 0.0 - 0.1 K/cumm Lymphocyte abs 3.1 0.8 - 3.3 K/cumm Monocyte abs 1.0 (H) 0.2 - 0.8 K/cumm Eosinophil abs 0.2 0.0 - 0.5 K/cumm Basophil abs 0.1 0.0 - 0.1 K/cumm Neutrophil pct 63.6 % Imm gran pct 0.5 % Lymphocyte pct 25.7 % Monocyte pct 8.0 % Eosinophil pct 1.5 % Basophil pct 0.7 % eGFR Result Value Ref Range eGFR 60 (L) 90 - 130 mL/min/1.73 m2 eGFR Result Value Ref Range eGFR 60 (L) 90 - 130 mL/min/1.73 m2 Basic metabolic panel Result Value Ref Range Sodium 141 135 - 145 mmol/L Potassium, pl 4.0 3.3 - 4.9 mmol/L Chloride 99 97 - 110 mmol/L CO2 37 (H) 22 - 32 mmol/L Anion gap 5 2 - 15 mmol/L BUN 19 8 - 25 mg/dL Creatinine 1.01 0.60 - 1.10 mg/dL Glucose 183 70 - 199 mg/dL Calcium 8.9 8.5 - 10.3 mg/dL Basic metabolic panel Result Value Ref Range Sodium 140 135 - 145 mmol/L Potassium, pl 4.1 3.3 - 4.9 mmol/L Chloride 98 97 - 110 mmol/L CO2 35 (H) 22 - 32 mmol/L Anion gap 7 2 - 15 mmol/L BUN 18 8 - 25 mg/dL Creatinine 1.01 0.60 - 1.10 mg/dL Glucose 246 (H) 70 - 199 mg/dL Calcium 9.4 8.5 - 10.3 mg/dL Magnesium Result Value Ref Range Magnesium 1.7 1.4 - 2.5 mg/dL Magnesium Result Value Ref Range Magnesium 3.5 (H) 1.4 - 2.5 mg/dL Phosphorus Result Value Ref Range Phosphorus, pl 2.4 2.3 - 4.5 mg/dL Phosphorus Result Value Ref Range Phosphorus, pl 2.7 2.3 - 4.5 mg/dL Hepatic function panel Result Value Ref Range Bilirubin, total 0.2 0.1 - 1.2 mg/dL Bilirubin, direct <0.2 0.1 - 0.3 mg/dL Protein, pl 6.3 (L) 6.5 - 8.5 g/dL Albumin 3.0 (L) 3.5 - 5.0 g/dL Alk phos 87 40 - 130 Units/L ALT 18 7 - 45 Units/L AST 36 10 - 45 Units/L eGFR Result Value Ref Range eGFR 60 (L) 90 - 130 mL/min/1.73 m2 Basic metabolic panel Result Value Ref Range Sodium 138 135 - 145 mmol/L Potassium, pl 4.3 3.3 - 4.9 mmol/L Chloride 97 97 - 110 mmol/L CO2 33 (H) 22 - 32 mmol/L Anion gap 8 2 - 15 mmol/L BUN 12 8 - 25 mg/dL Creatinine 0.83 0.60 - 1.10 mg/dL Glucose 325 (H) 70 - 199 mg/dL Calcium 8.9 8.5 - 10.3 mg/dL Magnesium Result Value Ref Range Magnesium 2.0 1.4 - 2.5 mg/dL Phosphorus Result Value Ref Range Phosphorus, pl 2.3 2.3 - 4.5 mg/dL CBC with auto differential Result Value Ref Range WBC 12.3 (H) 3.8 - 9.9 K/cumm Hgb 10.5 (L) 11.9 - 15.5 g/dL Hct 31.0 (L) 35.6 - 45.5 % Plt 369 150 - 400 K/cumm MPV 12.3 9.1 - 12.3 fL RBC 3.34 (L) 3.90 - 5.20 M/cumm MCV 92.8 81.3 - 96.4 fL MCH 31.4 27.1 - 33.3 pg MCHC 33.9 32.3 - 35.7 g/dL RDW CV 14.3 11.1 - 14.9 % RDW SD 48.0 35.7 - 48.1 fL NRBC abs 0.00 0.00 - 0.01 K/cumm Differential, auto Result Value Ref Range Neutrophil abs 8.6 (H) 1.7 - 6.5 K/cumm Imm gran abs 0.1 0.0 - 0.1 K/cumm Lymphocyte abs 2.4 0.8 - 3.3 K/cumm Monocyte abs 0.9 (H) 0.2 - 0.8 K/cumm Eosinophil abs 0.3 0.0 - 0.5 K/cumm Basophil abs 0.1 0.0 - 0.1 K/cumm Neutrophil pct 69.9 % Imm gran pct 0.5 % Lymphocyte pct 19.1 % Monocyte pct 7.3 % Eosinophil pct 2.5 % Basophil pct 0.7 % eGFR Result Value Ref Range eGFR 60 (L) 90 - 130 mL/min/1.73 m2 Basic metabolic panel Result Value Ref Range Sodium 141 135 - 145 mmol/L Potassium, pl 3.8 3.3 - 4.9 mmol/L Chloride 99 97 - 110 mmol/L CO2 33 (H) 22 - 32 mmol/L Anion gap 9 2 - 15 mmol/L BUN 15 8 - 25 mg/dL Creatinine 1.08 0.60 - 1.10 mg/dL Glucose 159 70 - 199 mg/dL Calcium 9.4 8.5 - 10.3 mg/dL Magnesium Result Value Ref Range Magnesium 1.8 1.4 - 2.5 mg/dL Phosphorus Result Value Ref Range Phosphorus, pl 2.5 2.3 - 4.5 mg/dL eGFR Result Value Ref Range eGFR 76 (L) 90 - 130 mL/min/1.73 m2 Basic metabolic panel Result Value Ref Range Sodium 142 135 - 145 mmol/L Potassium, pl 3.9 3.3 - 4.9 mmol/L Chloride 101 97 - 110 mmol/L CO2 34 (H) 22 - 32 mmol/L Anion gap 7 2 - 15 mmol/L BUN 17 8 - 25 mg/dL Creatinine 1.13 (H) 0.60 - 1.10 mg/dL Glucose 197 70 - 199 mg/dL Calcium 9.1 8.5 - 10.3 mg/dL Magnesium Result Value Ref Range Magnesium 1.8 1.4 - 2.5 mg/dL Phosphorus Result Value Ref Range Phosphorus, pl 3.6 2.3 - 4.5 mg/dL eGFR Result Value Ref Range eGFR 56 (L) 90 - 130 mL/min/1.73 m2 Basic metabolic panel Result Value Ref Range Sodium 140 135 - 145 mmol/L Potassium, pl See Comment 3.3 - 4.9 mmol/L Chloride 101 97 - 110 mmol/L CO2 29 22 - 32 mmol/L Anion gap 10 2 - 15 mmol/L BUN 13 8 - 25 mg/dL Creatinine 0.93 0.60 - 1.10 mg/dL Glucose 197 70 - 199 mg/dL Calcium 9.1 8.5 - 10.3 mg/dL Magnesium Result Value Ref Range Magnesium 2.1 1.4 - 2.5 mg/dL Phosphorus Result Value Ref Range Phosphorus, pl 3.0 2.3 - 4.5 mg/dL eGFR Result Value Ref Range eGFR 53 (L) 90 - 130 mL/min/1.73 m2 Basic metabolic panel Result Value Ref Range Sodium 142 135 - 145 mmol/L Potassium, pl 4.0 3.3 - 4.9 mmol/L Chloride 102 97 - 110 mmol/L CO2 32 22 - 32 mmol/L Anion gap 8 2 - 15 mmol/L BUN 17 8 - 25 mg/dL Creatinine 0.99 0.60 - 1.10 mg/dL Glucose 206 (H) 70 - 199 mg/dL Calcium 9.2 8.5 - 10.3 mg/dL Magnesium Result Value Ref Range Magnesium 1.8 1.4 - 2.5 mg/dL Phosphorus Result Value Ref Range Phosphorus, pl 3.3 2.3 - 4.5 mg/dL Basic metabolic panel Result Value Ref Range Sodium 140 135 - 145 mmol/L Potassium, pl 3.8 3.3 - 4.9 mmol/L Chloride 101 97 - 110 mmol/L CO2 33 (H) 22 - 32 mmol/L Anion gap 6 2 - 15 mmol/L BUN 16 8 - 25 mg/dL Creatinine 0.96 0.60 - 1.10 mg/dL Glucose 181 70 - 199 mg/dL Calcium 9.0 8.5 - 10.3 mg/dL Magnesium Result Value Ref Range Magnesium 1.8 1.4 - 2.5 mg/dL Phosphorus Result Value Ref Range Phosphorus, pl 3.6 2.3 - 4.5 mg/dL eGFR Result Value Ref Range eGFR 67 (L) 90 - 130 mL/min/1.73 m2 CBC without differential Result Value Ref Range WBC 10.9 (H) 3.8 - 9.9 K/cumm Hgb 10.3 (L) 11.9 - 15.5 g/dL Hct 30.8 (L) 35.6 - 45.5 % Plt 375 150 - 400 K/cumm MPV 12.0 9.1 - 12.3 fL RBC 3.26 (L) 3.90 - 5.20 M/cumm MCV 94.5 81.3 - 96.4 fL MCH 31.6 27.1 - 33.3 pg MCHC 33.4 32.3 - 35.7 g/dL RDW CV 14.6 11.1 - 14.9 % RDW SD 50.0 (H) 35.7 - 48.1 fL NRBC abs 0.00 0.00 - 0.01 K/cumm eGFR Result Value Ref Range eGFR 62 (L) 90 - 130 mL/min/1.73 m2 eGFR Result Value Ref Range eGFR 64 (L) 90 - 130 mL/min/1.73 m2 Basic metabolic panel Result Value Ref Range Sodium 145 135 - 145 mmol/L Potassium, pl 3.9 3.3 - 4.9 mmol/L Chloride 104 97 - 110 mmol/L CO2 30 22 - 32 mmol/L Anion gap 11 2 - 15 mmol/L BUN 13 8 - 25 mg/dL Creatinine 0.91 0.60 - 1.10 mg/dL Glucose 180 70 - 199 mg/dL Calcium 9.2 8.5 - 10.3 mg/dL Magnesium Result Value Ref Range Magnesium 3.1 (H) 1.4 - 2.5 mg/dL Phosphorus Result Value Ref Range Phosphorus, pl 2.9 2.3 - 4.5 mg/dL Basic metabolic panel Result Value Ref Range Sodium 142 135 - 145 mmol/L Potassium, pl 4.3 3.3 - 4.9 mmol/L Chloride 104 97 - 110 mmol/L CO2 27 22 - 32 mmol/L Anion gap 11 2 - 15 mmol/L BUN 16 8 - 25 mg/dL Creatinine 1.16 (H) 0.60 - 1.10 mg/dL Glucose 145 70 - 199 mg/dL Calcium 9.2 8.5 - 10.3 mg/dL Magnesium Result Value Ref Range Magnesium 2.1 1.4 - 2.5 mg/dL Phosphorus Result Value Ref Range Phosphorus, pl 3.9 2.3 - 4.5 mg/dL Type and screen Result Value Ref Range Suzette, indirect Negative ABO Rh A Positive eGFR Result Value Ref Range eGFR 68 (L) 90 - 130 mL/min/1.73 m2 Basic metabolic panel Result Value Ref Range Sodium 140 135 - 145 mmol/L Potassium, pl 4.4 3.3 - 4.9 mmol/L Chloride 102 97 - 110 mmol/L CO2 31 22 - 32 mmol/L Anion gap 7 2 - 15 mmol/L BUN 13 8 - 25 mg/dL Creatinine 0.94 0.60 - 1.10 mg/dL Glucose 150 70 - 199 mg/dL Calcium 9.6 8.5 - 10.3 mg/dL Magnesium Result Value Ref Range Magnesium 1.8 1.4 - 2.5 mg/dL Phosphorus Result Value Ref Range Phosphorus, pl 3.0 2.3 - 4.5 mg/dL Check Sample Result Value Ref Range ABO Rh A Positive eGFR Result Value Ref Range eGFR 51 (L) 90 - 130 mL/min/1.73 m2 Basic metabolic panel Result Value Ref Range Sodium 141 135 - 145 mmol/L Potassium, pl 4.2 3.3 - 4.9 mmol/L Chloride 102 97 - 110 mmol/L CO2 31 22 - 32 mmol/L Anion gap 8 2 - 15 mmol/L BUN 15 8 - 25 mg/dL Creatinine 1.35 (H) 0.60 - 1.10 mg/dL Glucose 146 70 - 199 mg/dL Calcium 9.1 8.5 - 10.3 mg/dL Magnesium Result Value Ref Range Magnesium 2.0 1.4 - 2.5 mg/dL Phosphorus Result Value Ref Range Phosphorus, pl 4.1 2.3 - 4.5 mg/dL CBC without differential Result Value Ref Range WBC 12.4 (H) 3.8 - 9.9 K/cumm Hgb 9.6 (L) 11.9 - 15.5 g/dL Hct 29.1 (L) 35.6 - 45.5 % Plt 358 150 - 400 K/cumm MPV 11.7 9.1 - 12.3 fL RBC 3.05 (L) 3.90 - 5.20 M/cumm MCV 95.4 81.3 - 96.4 fL MCH 31.5 27.1 - 33.3 pg MCHC 33.0 32.3 - 35.7 g/dL RDW CV 14.8 11.1 - 14.9 % RDW SD 51.6 (H) 35.7 - 48.1 fL NRBC abs 0.00 0.00 - 0.01 K/cumm eGFR Result Value Ref Range eGFR 66 (L) 90 - 130 mL/min/1.73 m2 Basic metabolic panel Result Value Ref Range Sodium 137 135 - 145 mmol/L Potassium, pl 4.0 3.3 - 4.9 mmol/L Chloride 101 97 - 110 mmol/L CO2 29 22 - 32 mmol/L Anion gap 7 2 - 15 mmol/L BUN 14 8 - 25 mg/dL Creatinine 0.99 0.60 - 1.10 mg/dL Glucose 172 70 - 199 mg/dL Calcium 9.4 8.5 - 10.3 mg/dL Magnesium Result Value Ref Range Magnesium 1.8 1.4 - 2.5 mg/dL Phosphorus Result Value Ref Range Phosphorus, pl 2.6 2.3 - 4.5 mg/dL eGFR Result Value Ref Range eGFR 43 (L) 90 - 130 mL/min/1.73 m2 CBC with auto differential Result Value Ref Range WBC 13.6 (H) 3.8 - 9.9 K/cumm Hgb 9.4 (L) 11.9 - 15.5 g/dL Hct 28.0 (L) 35.6 - 45.5 % Plt 349 150 - 400 K/cumm MPV 11.3 9.1 - 12.3 fL RBC 2.95 (L) 3.90 - 5.20 M/cumm MCV 94.9 81.3 - 96.4 fL MCH 31.9 27.1 - 33.3 pg MCHC 33.6 32.3 - 35.7 g/dL RDW CV 14.6 11.1 - 14.9 % RDW SD 50.6 (H) 35.7 - 48.1 fL NRBC abs 0.00 0.00 - 0.01 K/cumm Basic metabolic panel Result Value Ref Range Sodium 141 135 - 145 mmol/L Potassium, pl 4.2 3.3 - 4.9 mmol/L Chloride 103 97 - 110 mmol/L CO2 29 22 - 32 mmol/L Anion gap 9 2 - 15 mmol/L BUN 13 8 - 25 mg/dL Creatinine 1.15 (H) 0.60 - 1.10 mg/dL Glucose 137 70 - 199 mg/dL Calcium 9.8 8.5 - 10.3 mg/dL Magnesium Result Value Ref Range Magnesium 2.3 1.4 - 2.5 mg/dL Phosphorus Result Value Ref Range Phosphorus, pl 3.9 2.3 - 4.5 mg/dL Differential, auto Result Value Ref Range Neutrophil abs 11.2 (H) 1.7 - 6.5 K/cumm Imm gran abs 0.1 0.0 - 0.1 K/cumm Lymphocyte abs 1.1 0.8 - 3.3 K/cumm Monocyte abs 1.0 (H) 0.2 - 0.8 K/cumm Eosinophil abs 0.2 0.0 - 0.5 K/cumm Basophil abs 0.0 0.0 - 0.1 K/cumm Neutrophil pct 82.1 % Imm gran pct 0.4 % Lymphocyte pct 7.8 % Monocyte pct 7.6 % Eosinophil pct 1.8 % Basophil pct 0.3 % eGFR Result Value Ref Range eGFR 62 (L) 90 - 130 mL/min/1.73 m2 Basic metabolic panel Result Value Ref Range Sodium 139 135 - 145 mmol/L Potassium, pl 3.9 3.3 - 4.9 mmol/L Chloride 101 97 - 110 mmol/L CO2 29 22 - 32 mmol/L Anion gap 9 2 - 15 mmol/L BUN 13 8 - 25 mg/dL Creatinine 0.89 0.60 - 1.10 mg/dL Glucose 175 70 - 199 mg/dL Calcium 9.4 8.5 - 10.3 mg/dL Magnesium Result Value Ref Range Magnesium 1.8 1.4 - 2.5 mg/dL Phosphorus Result Value Ref Range Phosphorus, pl 3.1 2.3 - 4.5 mg/dL eGFR Result Value Ref Range eGFR 52 (L) 90 - 130 mL/min/1.73 m2 eGFR Result Value Ref Range eGFR 70 (L) 90 - 130 mL/min/1.73 m2 ECG 12 lead Result Value Ref Range Ventricular Rate EKG/Min 64 BPM Atrial Rate 64 BPM WA-Interval (MSEC) 134 ms QRS-Interval (MSEC) 80 ms QT-Interval (MSEC) 610 ms QTc 629 ms P [place] 50 degrees R [place] 14 degrees T [place] 8 degrees Diagnosis Normal sinus rhythm Nonspecific ST abnormality Abnormal ECG When compared with ECG of 12-SEP-2006 09:55, ST elevation now present in Inferior leads QT has lengthened Confirmed by MANJINDER URRUTIA M.D ([id number]) on 12/05/2022 3:51:28 PM ECG 12 lead Result Value Ref Range Ventricular Rate EKG/Min 137 BPM Atrial Rate 131 BPM QRS-Interval (MSEC) 72 ms QT-Interval (MSEC) 360 ms QTc 543 ms R [place] 39 degrees T [place] -87 degrees Diagnosis Atrial fibrillation/flutter with rapid ventricular response ST & T wave abnormality, consider inferior ischemia ST & T wave abnormality, consider anterolateral ischemia Abnormal ECG When compared with ECG of 03-DEC-2022 23:17, (unconfirmed) Atrial fibrillation has replaced Sinus rhythm Vent. rate has increased BY 73 BPM Inverted T waves have replaced nonspecific T wave abnormality in Inferior leads T wave inversion now evident in Anterolateral leads Confirmed by MANJINDER URRUTIA M.D ([id number]) on 12/05/2022 6:04:07 PM ECG 12 lead Result Value Ref Range Ventricular Rate EKG/Min 79 BPM Atrial Rate 79 BPM WA-Interval (MSEC) 130 ms QRS-Interval (MSEC) 84 ms QT-Interval (MSEC) 372 ms QTc 426 ms P [place] 57 degrees R [place] 38 degrees T [place] -60 degrees Diagnosis Normal sinus rhythm ST & T wave abnormality, consider inferior ischemia Abnormal ECG When compared with ECG of 05-DEC-2022 04:23, (unconfirmed) Sinus rhythm has replaced Atrial fibrillation Vent. rate has decreased BY [address] no longer depressed in Anterior leads Nonspecific T wave abnormality has replaced inverted T waves in Lateral leads Confirmed by SANDRINE RHODES M.D ([id number]) on 12/06/2022 11:37:23 AM ECG 12 lead Result Value Ref Range Ventricular Rate EKG/Min 153 BPM Atrial Rate 306 BPM QRS-Interval (MSEC) 74 ms QT-Interval (MSEC) 170 ms QTc 271 ms P [place] -60 degrees R [place] 27 degrees T [place] 247 degrees Diagnosis Atrial flutter with 2:1 A-V conduction Cannot rule out Anterior infarct , age undetermined ST & T wave abnormality, consider lateral ischemia Abnormal ECG When compared with ECG of 06-DEC-2022 05:11, (unconfirmed) Atrial flutter has replaced Atrial fibrillation ST now depressed in Inferior leads T wave inversion now evident in Lateral leads Confirmed by MANJINDER URRUTIA M.D ([id number]) on 12/06/2022 10:40:03 AM ECG 12 lead Result Value Ref Range Ventricular Rate EKG/Min 117 BPM Atrial Rate 163 BPM QRS-Interval (MSEC) 82 ms QT-Interval (MSEC) 352 ms QTc 491 ms R [place] 36 degrees T [place] -65 degrees Diagnosis Atrial fibrillation with rapid ventricular response ST & T wave abnormality, consider inferior ischemia Abnormal ECG When compared with ECG of 05-DEC-2022 19:41, (unconfirmed) No significant change was found Confirmed by MANJINDER URRUTIA M.D ([id number]) on 12/06/2022 10:54:38 AM ECG 12 lead Result Value Ref Range Ventricular Rate EKG/Min 78 BPM Atrial Rate 78 BPM WA-Interval (MSEC) 140 ms QRS-Interval (MSEC) 80 ms QT-Interval (MSEC) 392 ms QTc 446 ms P [place] 50 degrees R [place] 35 degrees T [place] -7 degrees Diagnosis Normal sinus rhythm Nonspecific T wave abnormality When compared with ECG of 06-DEC-2022 09:28, Sinus rhythm has replaced Atrial flutter Vent. rate has decreased BY [address] no longer depressed in Inferior leads ST no longer depressed in Anterolateral leads T wave inversion no longer evident in Inferior leads T wave inversion no longer evident in Lateral leads Confirmed by DONALDO VALLE M.D ([id number]) on 12/15/2022 4:33:38 PM ECG 12 lead Result Value Ref Range Ventricular Rate EKG/Min 72 BPM Atrial Rate 72 BPM WA-Interval (MSEC) 144 ms QRS-Interval (MSEC) 78 ms QT-Interval (MSEC) 428 ms QTc 468 ms P [place] 62 degrees R [place] 26 degrees T [place] 8 degrees Diagnosis Normal sinus rhythm Normal ECG When compared with ECG of 06-DEC-2022 09:28, Sinus rhythm has replaced Atrial flutter Vent. rate has decreased BY [address] no longer depressed in Inferior leads ST no longer depressed in Anterolateral leads T wave inversion less evident in Inferior leads Nonspecific T wave abnormality has replaced inverted T waves in Lateral leads Confirmed by SANDRINE RHODES M.D ([id number]) on 12/12/2022 9:25:50 AM Transthoracic Echo (TTE) Complete W Doppler/CF Result Value Ref Range LV EF 76 % POCT glucose Result Value Ref Range Glucose, POC 152 70 - 199 mg/dL POCT glucose Result Value Ref Range Glucose, POC 261 (H) 70 - 199 mg/dL POCT glucose Result Value Ref Range Glucose, POC 182 70 - 199 mg/dL POCT glucose Result Value Ref Range Glucose, POC 298 (H) 70 - 199 mg/dL POCT glucose Result Value Ref Range Glucose, POC 145 70 - 199 mg/dL POCT glucose Result Value Ref Range Glucose, POC 226 (H) 70 - 199 mg/dL POCT glucose Result Value Ref Range Glucose, POC 173 70 - 199 mg/dL POCT glucose Result Value Ref Range Glucose, POC 242 (H) 70 - 199 mg/dL POCT glucose Result Value Ref Range Glucose, POC 273 (H) 70 - 199 mg/dL POCT glucose Result Value Ref Range Glucose, POC 190 70 - 199 mg/dL POCT glucose Result Value Ref Range Glucose, POC 216 (H) 70 - 199 mg/dL POCT glucose Result Value Ref Range Glucose, POC 162 70 - 199 mg/dL POCT glucose Result Value Ref Range Glucose, POC 180 70 - 199 mg/dL POCT glucose Result Value Ref Range Glucose, POC 175 70 - 199 mg/dL POCT glucose Result Value Ref Range Glucose, POC 213 (H) 70 - 199 mg/dL POCT glucose Result Value Ref Range Glucose, POC 164 70 - 199 mg/dL POCT glucose Result Value Ref Range Glucose, POC 158 70 - 199 mg/dL POCT glucose Result Value Ref Range Glucose, POC 165 70 - 199 mg/dL POCT glucose Result Value Ref Range Glucose, POC 133 70 - 199 mg/dL POCT glucose Result Value Ref Range Glucose, POC 144 70 - 199 mg/dL POCT glucose Result Value Ref Range Glucose, POC 164 70 - 199 mg/dL POCT glucose Result Value Ref Range Glucose, POC 111 70 - 199 mg/dL POCT glucose Result Value Ref Range Glucose, POC 141 70 - 199 mg/dL POCT glucose Result Value Ref Range Glucose, POC 155 70 - 199 mg/dL POCT glucose Result Value Ref Range Glucose, POC 122 70 - 199 mg/dL POCT glucose Result Value Ref Range Glucose, POC 140 70 - 199 mg/dL POCT glucose Result Value Ref Range Glucose, POC 167 70 - 199 mg/dL POCT glucose Result Value Ref Range Glucose, POC 122 70 - 199 mg/dL POCT glucose Result Value Ref Range Glucose, POC 136 70 - 199 mg/dL 12/04/2022 2D Echo: SUMMARY: Normal LV and RV size and systolic function. LVEF 76%. Normal LV wall thickness/mass. No WMA. No significant valvular abnormalities noted. Trace-mild MR. LA is normal. Normal RV cavity size. Strain quality is inadequate for accurate reporting. Normal diastolic function. Estimated PA systolic pressure 30+RA(3) mmHg. Normal Inferior vena cava. Normal aorta. No prior study. 01/16/23 30 Day Event monitor: Rhythm Summary: Afib longest duration: 01:23:10 Date Time of Afib longest episode: 12/29/2022 04:03:00 Afib shortest duration: 00:00:46 Date Time of Afib shortest episode: 12/29/2022 13:13:00 Peak avg Afib rate: 126 Mean heart rate: 77 Pauses >= 3 seconds: 0 Tachycardia avg rate: 134 Tachycardia longest duration: 02:46:16 Tachycardia longest episode: 12/14/2022 10:57:00 Tachycardia shortest duration: 00:00:09 Tachycardia shortest episode: 12/25/2022 12:05:00 Cardiologis Review of Transmissions: NSR with s fib about 1% of the time - with variable rates. , I have reviewed the findings on the individual tracings for the dates noted below and I agree., The full scanned/data report is available in [facility]. This study was interpreted by Manjinder Urrutia MD Confirmed on 01/16/2023 - 12:13:20 by Manjinder Urrutia MD Summary of Transmitted Events: # Date Time HR Symptoms/Rhythm 10 01/02/23 10:21 121.0 Auto Trigger Atrial Fibrillation RVR Onset, Sinus Arrhythmia w/Couple 9 01/01/23 13:30 85.0 None or Accidental Push Sinus Rhythm w/Lead Loss 8 12/30/22 04:28 120.0 Auto Trigger Atrial Fibrillation RVR Sustained, Sinus Rhythm w/PVCs ( 7 12/29/22 04:03 120.0 Auto Trigger Atrial Fibrillation RVR Non Sustained, Sinus Rhythm w/PV 6 12/25/22 09:30 120.0 Auto Trigger Atrial Fibrillation RVR Sustained w/PVCs (1 in 1 min) 5 12/25/22 09:20 120.0 Auto Trigger Atrial Fibrillation RVR Non Sustained Onset, Sinus Rhyth 4 12/21/22 09:00 84.0 None or Accidental Push Sinus Rhythm 3 12/16/22 21:12 80.0 None Reported Sinus Rhythm 2 12/14/22 10:54 150.0 Auto Trigger Atrial Fibrillation RVR Sustained w/PVCs (1 in1 min) 1 12/11/22 11:52 67.3 Auto Trigger; Baseline Sinus Rhythm I have personally reviewed and analyzed EKG, electronic medical record, and bloodwork/lipids. Letitia Abdalla MD, [facility] This note is dictated and transcribed using [employer] Software. Coding Team Lead variancesmay occur. Despite proofreading, typographical errors may occur. documented in this encounter Plan of Treatment Not on file documented as of this encounter Visit Diagnoses Diagnosis Paroxysmal atrial flutter (CMS/HCC) (HCC)- Primary Hypertension associated with diabetes (HCC) Unspecified essential hypertension Mixed diabetic hyperlipidemia associated with type 2 diabetes mellitus (HCC) At risk for amiodarone toxicity with halfway use Chronic anticoagulation Encounter for long-term (current) use of anticoagulants Localized edema Edema documented in this encounter Discontinued Medications Medication Sig Discontinue Reason Start Date End Da te furosemide (LASIX) 20 mg tablet Take 1 tablet (20 mg total) by mouth every third day as needed (if gain more than 2 pounds in a day or 5 pounds in a week) 12/11/2022 01/29/2023 documented as of this encounter Historical Medications * This list may reflect changes made after this encounter. furosemide (LASIX) 20 mg tablet Take 1 tablet (20 mg total) by mouth daily 07/23/2024 added in this encounter Care Teams Night Warehouse Manager Relationship Specialty Start Date End Date Tio Shea MD PCP - General Family Medicine 05/01/21 documented as of this encounter
--- OUTSIDE RECORDS SUMMARY | 2024-08-01 16:57 | XMS_ITS | Encounter Summary ---
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 Vitals were taken and were as follows: bp 122/72 pulse 80 and O2 95%. documented in this encounter Plan of Treatment Not on file documented as of this encounter Procedures Procedure Name Priority Date/Time Associated Diagnosis Comments ECG 12-LEAD Routine 01/02/2023 Atrial fibrillation, unspecified type (HCC) ECG 12-LEAD Routine 12/26/2022 Prolonged Q-T interval on ECG documented in this encounter Results * ECG 12 lead (01/02/2023) Barbara Marlow NP ECG ORDERABLES Final Result documented in this encounter Visit Diagnoses Diagnosis Atrial fibrillation, unspecified type (HCC)- Primary documented in this encounter Care Teams Operations Program Manager Relationship Specialty Start Date End Date Tio Shea MD PCP - General Family Medicine 05/01/21 documented as of this encounter
--- OUTSIDE RECORDS SUMMARY | 2024-08-01 16:57 | XMS_ITS | Encounter Summary ---
Author Organization [facility] Address [address] [place] [address] Care Team Providers Care Air Crew Supervisor Name Role Phone Tio Shea MD Primary Care Provider [phone] [phone] Reason for Visit * Reason Comments Hospital Follow Up Atrial Flutter Encounter Details Date Type Department Care Team (Late st Contact Info) Description 12/26/2022 3:00 PM CDT Office Visit [facility] Cardiology [address] [place] [address] Barbara Marlow, GLENDY [address] [place] [address] Paroxysmal atrial fibrillation (CMS/HCC) (HCC) (Primary Dx); Prolonged Q-T interval on ECG; Hospital discharge follow-up; Primary hypertension Social History Tobacco Use Types Packs/Day Years [...] on file Legal Sex Female 6:47 PM DOCUMENTUM CONSULTANT Gender Identity Not on file Sexual Orientation Not on file documented as of this encounter Last Filed Vital Signs Vital Sign Reading Time Taken Comments Blood Pressure 110/64 12/26/2022 2:52 PM CDT Pulse 82 12/26/2022 2:52 PM CDT Temperature - - Respiratory Rate - - Oxygen Saturation 94% 12/26/2022 2:52 PM CDT Inhaled Oxygen Concentration - - Weight 78.5 kg (173 lb) 12/26/2022 2:52 PM CDT Height 152.4 cm (5') 12/26/2022 2:52 PM CDT Body Mass Index 33.79 12/26/2022 2:52 PM CDT documented in this encounter Patient Instructions * Patient Instructions* Barbara Marlow NP - 12/26/2022 3:00 PM CDT While taking amiodarone, we will need to monitor your thyroid and liver function by blood tests, ask you to get annual eye exams, periodic chest x-rays and pulmonary function tests, and be sure to use sunscreen for UV protection in the sun. There are changes that could mean you are having congestive heart failure. Usually someone experiences 2 or more of the following changes: 1. Shortness of breath (usually occurs with activity, with laying flat, and/or wakes you from sleep) 2. Swelling (usually in feet, ankles, legs, abdomen, or overall rapid weight gain) 3. Persistent coughing or wheezing (sometimes with white or pink mucus) 4. Feeling more tired or fatigued with routine activities 5. Poor appetite, feeling full or bloated, or nauseated Get knee-high compression stockings that are: [x] Mild compression around 15-20 mmHg compression [] Moderate compression around 20-30 mmHg compression. Buy the size that is recommended based on your height and weight. Put them on before getting out of bed every morning and take them off at night (DO NOT wear them over night). Hand wash and hang them up to dry to make them last longer. Decrease amiodarone to 200mg daily documented in this encounter Ordered Prescriptions Prescription Sig Dispense Quantity Refills Last Filled Start Date End Date metoprolol XL (TOPROL-XL) 50 mg extended release tabletIndications: Paroxysmal atrial fibrillation (CMS/HCC) (HCC) Take 1 tablet (50 mg total) by mouth daily 90 tablet 3 12/26/2022 amiodarone (PACERONE) 200 mg tabletIndications: Paroxysmal atrial fibrillation (CMS/HCC) (HCC) Take 1 tablet (200 mg total) by mouth daily 30 tablet 12/26/2022 01/31/2023 documented in this encounter Progress Notes * Barbara Marlow, GLENDY - 12/26/2022 3:00 PM CDT [facility] Cardiology [address] [place] [address] Date of Visit: 12/26/2022 Patient ID: Stelal Carroll [id number] Chief Complaint: Stella Carroll is a 67 y.o. female who comes to the office for a hospital follow up for atrial flutter, MR History of Present Illness: Stella Carroll is a 67 y.o. female with a past medical history of paroxysmal atrial flutter with rapid ventricular response, hypertension, hyperlipidemia, [id number] mitral regurgitation seen in follow-up for atrial flutter. 12/26/2022 Hospital follow-up with [facility] - Stella Carroll comes to the office today for a hospital follow up visit. Since her discharge from [facility], she was admitted to [facility] 12/2022 following a syncopal episode. At [facility], she was found to be profoundly hypokalemic and had prolonged QTc at 604msec. She was also found to have UTI. She was admitted to the ICU. Syncope presumed to be multifactorial from polypharmacy (as she was discharged on sotalol, propranolol, diltiazem, furosemide, and HCTZ)as well as electrolyte abnormalities and UTI. She did have a recurrence of atrial fibrillation during that hospitalization and was treated with amiodarone and metoprolol. Reports that she is been feeling well since her discharge from [facility] and has not had any recurrent syncope. No palpitations, chest pain. She does have some ankle edema. Records that I personally reviewed on the day of this visit include: (the interpretation is outlined in the HPI above) Records from the above mentioned hospital admission. I have also reviewed: allergies, current medications, past family history, past medical history, past social history, past surgical history and problem list Review of Systems Constitutional: Negative for fever, malaise/fatigue, night sweats, weight gain and weight loss. HENT: Negative for hearing loss. Eyes: Negative for blurred vision and visual disturbance. Cardiovascular: Positive for leg swelling. Negative for chest pain, claudication, dyspnea on exertion, irregular heartbeat, near-syncope, orthopnea, palpitations, paroxysmal nocturnal dyspnea and syncope. Respiratory: Negative for shortness of breath, sleep disturbances due to breathing, snoring and wheezing. Hematologic/Lymphatic: Negative for bleeding problem. Musculoskeletal: Negative for muscle cramps and muscle weakness. Gastrointestinal: Negative for abdominal pain, change in bowel habit, diarrhea, nausea and vomiting. Genitourinary: Negative for hematuria. Neurological: Negative for dizziness and headaches. Vital Signs: BP 110/64 (BP Location: Right arm, Patient Position: Sitting) Pulse 82 Ht 152.4 cm (5') Wt 78.5 kg (173 lb) SpO2 94% BMI 33.79 kg/m?? Body mass index is 33.79 kg/m??. Physical Exam Vitals reviewed. Constitutional: General: She is not in acute distress. HENT: Head: Normocephalic and atraumatic. Eyes: Extraocular Movements: Extraocular movements intact. Conjunctiva/sclera: Conjunctivae normal. Cardiovascular: Rate and Rhythm: Normal rate and regular rhythm. Heart sounds: Normal heart sounds. Pulmonary: Effort: Pulmonary effort is normal. No respiratory distress. Breath sounds: Normal breath sounds. Abdominal: General: Bowel sounds are normal. Palpations: Abdomen is soft. Musculoskeletal: General: Normal range of motion. Cervical back: Normal range of motion and neck supple. Right lower leg: Edema present. Left lower leg: Edema present. Skin: General: Skin is warm and dry. Neurological: Mental Status: She is alert and oriented to person, place, and time. No Known Allergies Current Outpatient Medications: amLODIPine (NORVASC) 10 mg tablet, Take 1 tablet (10 mg total) by mouth every morning, Disp: , Rfl: Eliquis 5 mg tablet, Take 1 tablet (5 mg total) by mouth every 12 (twelve) hours, Disp: , Rfl: gabapentin (NEURONTIN) 100 mg capsule, Take 1 capsule (100 mg total) by mouth 3 (three) times a day, Disp: 90 capsule, Rfl: 0 imipramine (TOFRANIL) 50 mg tablet, TAKE 1 TABLET BY MOUTH DAILY - LAST REFILL UNTIL SEEN, Disp: , Rfl: Klor-Con M20 20 mEq CR tablet, , Disp: , Rfl: magnesium oxide (MAG-OX) 400 mg (241.3 mg elemental magnesium) tablet, Take 1 tablet (400 mg total)by mouth every morning, Disp: , Rfl: melatonin tablet, Take 2 tablets (6 mg total) by mouth nightly, Disp: , Rfl: omeprazole (PriLOSEC) 20 mg capsule, Take 1 capsule (20 mg total) by mouth daily, Disp: , Rfl: potassium, sodium phosphates (PHOS-NAK) 280-160-250 mg powder in packet, Take 1 packet by mouth 2 (two) times a day before breakfast and dinner, Disp: 60 packet, Rfl: 0 simvastatin (ZOCOR) 80 mg tablet, Take 1 tablet (80 mg total) by mouth nightly, Disp: , Rfl: amiodarone (PACERONE) 200 mg tablet, TAKE 1 TABLET BY MOUTH DAILY, Disp: 30 tablet, Rfl: 0 furosemide (LASIX) 20 mg tablet, Take 1 tablet (20 mg total) by mouth daily, Disp: , Rfl: metoprolol XL (TOPROL-XL) 50 mg extended release tablet, Take 1 tablet (50 mg total) by mouth daily, Disp: 90 tablet, Rfl: 3 Lab Results Component Value Date POTASSIUM 3.9 12/11/2022 BUNSER 13 01/29/2023 CREATININE 0.82 01/29/2023 CHOL 183 12/03/2022 TRIG 109 12/03/2022 LDLCALC 116 12/03/2022 HDL 45 12/03/2022 Assessment: Diagnoses and all orders for this visit: Paroxysmal atrial fibrillation (CMS/HCC) (HCC) (Primary) - metoprolol XL (TOPROL-XL) 50 mg extended release tablet; Take 1 tablet (50 mg total) by mouth daily Prolonged Q-T interval on ECG - ECG 12 lead Hospital discharge follow-up Primary hypertension Qtc 499msec on EKG today. Will decrease amiodarone to 200mg daily. EKG at next OV In sinus rhythm today. As above, Decrease amiodarone to 200 mg daily. Continue metoprolol 50 mg daily. [id number] score is 3 Continue systemic anticoagulation with Eliquis 5 mg twice daily. Monitor for bleeding. Blood pressure goal. Continue current medical regimen. She should return to the office in [address] Abdalla or earlier if needed. Barbara Marlow ANP- Nurse Practitioner with [facility] Card[facility] This note is dictated and transcribed using [employer] Direct Software. Shading Painter variancesmay occur. Despite proofreading, typographical errors may occur. documented in this encounter Plan of Treatment Not on file documented as of this encounter Procedures Procedure Name Priority Date/Time Associated Diagnosis Comments ECG 12-LEAD Routine 12/26/2022 Prolonged Q-T interval on ECG documented in this encounter Results * ECG 12 lead (12/26/2022) Barbara Marlow NP ECG ORDERABLES Final Result documented in this encounter Visit Diagnoses Diagnosis Paroxysmal atrial fibrillation (CMS/HCC) (HCC)- Primary Atrial fibrillation Prolonged Q-T interval on ECG Nonspecific abnormal electrocardiogram (ECG) (EKG) Hospital discharge follow-up Other follow-up examination Primary hypertension Unspecified essential hypertension documented in this encounter Discontinued Medications Medication Sig Discontinue Reason Start Date End Da te rosuvastatin (CRESTOR) 40 mg tablet Take 1 tablet (40 mg total) by mouth daily Alternate therapy 12/11/2022 12/26/2022 amiodarone (PACERONE) 200 mg tablet Take 2 tablets (400 mg total) by mouth daily for 30 days, THEN 1 tablet (200 mg total) daily. 12/11/2022 12/26/2022 metoprolol XL (TOPROL-XL) 50 mg extended release tablet Take 1 tablet (50 mg total) by mouth daily Reorder 12/12/2022 12/26/2022 documented as of this encounter Historical Medications * This list may reflect changes made after this encounter. amLODIPine (NORVASC) 10 mg tablet Take 1 tablet (10 mg total) by mouth every morning 12/21/2022 simvastatin (ZOCOR) 80 mg tablet Take 1 tablet (80 mg total) by mouth nightly 07/19/2023 Klor-Con M20 20 mEq CR tablet 12/24/2022 07/19/2023 melatonin tablet Take 2 tablets (6 mg total) by mouth nightly 12/21/2022 07/19/2023 added in this encounter Care Teams Air Crew Supervisor Relationship Specialty Start Date End Date Tio Shea MD PCP - General Family Medicine 05/01/21 documented as of this encounter
--- OUTSIDE RECORDS SUMMARY | 2024-08-01 16:57 | XMS_ITS | Encounter Summary ---
Author Organization [facility] Address [address] [place] [address] Care Team Providers Care Stone Gluer Name Role Phone Tio Shea MD Primary Care Provider [phone] [phone] Reason for Visit * Reason Comments Follow-up 3-4 mo f/u Atrial Flutter Encounter Details Date Type Department Care Team (Latest Contact Info) Description 07/19/2023 1:45 PM DROP HAMMER PILE DRIVER OPERATOR Office Visit [facility] Cardiology [address] [place] [address] Kurtis Abdalla MD [address] [facility] [address] [place] [address] Paroxysmal atrial flutter (CMS/HCC) (HCC) (Primary Dx); At risk for amiodarone toxicity with assistant terminal manager use; Hypertension associated with diabetes (HCC); Mixed diabetic hyperlipidemia associated with type 2 diabetes mellitus (HCC); Chronic anticoagulation Social History Tobacco Use Types Packs/Day Years [...] on file Legal Sex Female 6:47 PM DROP HAMMER PILE DRIVER OPERATOR Gender Identity Not on file Sexual Orientation Not on file documented as of this encounter Last Filed Vital Signs Vital Sign Reading Time Taken Comments Blood Pressure 126/74 07/19/2023 1:48 PM DROP HAMMER PILE DRIVER OPERATOR Pulse 81 07/19/2023 1:48 PM DROP HAMMER PILE DRIVER OPERATOR Temperature - - Respiratory Rate - - Oxygen Saturation 95% 07/19/2023 1:48 PM DROP HAMMER PILE DRIVER OPERATOR Inhaled Oxygen Concentration - - Weight 79.9 kg (176 lb 1.6 oz) 07/19/2023 1:48 P M DROP HAMMER PILE DRIVER OPERATOR Height 152.4 cm (5') 07/19/2023 1:48 PM DROP HAMMER PILE DRIVER OPERATOR Body Mass Index 34.39 07/19/2023 1:48 PM DROP HAMMER PILE DRIVER OPERATOR documented in this encounter Ordered Prescriptions Prescription Sig Dispense Quantity Refills Last Filled Start Date End Date rosuvastatin (CRESTOR) 40 mg tablet Take 1 tablet (40 mg total) by mouth daily 30 tablet 11 07/19/2023 07/23/2024 documented in this encounter Progress Notes * Kurtis Abdalla MD - 07/19/2023 1:45 PM CST Images from the original note were not included. DATE OF VISIT: 07/19/2023 CHIEF COMPLAINT Chief Complaint Patient presents with Follow-up 3-4 mo f/u Atrial Flutter ASSESSMENT Diagnoses and all orders for this visit: Paroxysmal atrial flutter (CMS/HCC) (HCC) (Primary) At risk for amiodarone toxicity with shelter use Hypertension associated with diabetes (HCC) Mixed diabetic hyperlipidemia associated with type 2 diabetes mellitus (HCC) - Lipid panel; Future Chronic anticoagulation Other orders - rosuvastatin (CRESTOR) 40 mg tablet; Take 1 tablet (40 mg total) by mouth daily PLAN/RECOMMENDATIONS Stable, A. Flutter controlled maintaining sinus [...] mg daily, Toprol XL 50 mg daily Lipids personally reviewed 07/19/23 LDL 125, not ideally controlled with goal LDL<70. Continue medical therapy and lifestyle modification. Again expressed by concerns re high dose Simvastatin and Amlodipine interactions. She agrees to change and asks that I recommend an alternative. Stop simvastatin 80 mg and start Rosuvastatin 40mg qhs and repeat FLP in 2 months. Counseled she must not take together. Provided written instructions as well, they verbalized understanding and agreed. Recommendations to follow. Amiodarone toxicity counseling performed. Risks including but [...] -continue amiodarone 200 mg daily for now. TSH 0.90 12/04/22 DM managed by PCP HgbA1C 7.3% 12/04/22 Lifestyle modification counseling performed. Continue consistent Weight loss, exercise, reduction in caloric intake. Over 50% of this visit counseling atrial flutter, HTN, lipids, medications, lifestyle modification. Follow up in the office in 6 months or sooner as needed. Thank you for allowing me the privilege of participating in the care this very pleasant patient. Please do not hesitate to contact me with any additional questions or concerns. HPI Stella Carroll is a 67 y.o. female with a PMHx of paroxysmal atrial flutter with rapid ventricular response, hypertension, hyperlipidemia, [id number] mitral regurgitation seen in follow-up for atrial flutter. 01/29/23 Initial visit with me (originally seen by Dr Smith): Patient was admitted to [facility] 12/2022 [facility] approximately 1 monthprior found to be profoundly [...] K sodium phosphate Toprol XL 50mg daily 07/19/23 Doing ok has shingles pain still since October, no CP or SOB, no palps. Ran out of KCl 2 weeks again not sure if she needs it she asked, no other issues. Tanna meds no bleeding. Remains on Amiodarone. MEDICAL HISTORY Past Medical History: Diagnosis Date Atrial flutter (CMS/HCC) (HCC) Hyperlipidemia Hypertension Syncope SOCIAL HISTORY reports that she has never smoked. She has never been exposed to tobacco smoke. She has never used smokeless tobacco. Patient denies consuming alcoholic drinks. FAMILY HISTORY family history includes No Known Problems in her father and mother. MEDICATIONS HOME MEDICATIONS : allopurinoL (ZYLOPRIM) 100 mg tablet amiodarone (PACERONE) 200 mg tablet amLODIPine (NORVASC) 10 mg tablet cholecalciferol (Vitamin D3) 2000 unit tablet Eliquis 5 mg tablet furosemide (LASIX) 20 mg tablet gabapentin (NEURONTIN) 100 mg capsule metoprolol XL (TOPROL-XL) 50 mg extended release tablet omeprazole (PriLOSEC) 20 mg capsule simvastatin (ZOCOR) 80 mg tablet rosuvastatin (CRESTOR) 40 mg tablet colchicine (COLCRYS) 0.6 mg tablet imipramine (TOFRANIL) 50 mg tablet Klor-Con M20 20 mEq CR tablet melatonin tablet Phospha 250 Neutral 250 mg tablet ALLERGIES No Known Allergies REVIEW OF SYSTEMS Review of Systems Constitutional: Positive for malaise/fatigue and weight gain. Negative for decreased appetite, diaphoresis, fever, night sweats and weight loss. HENT: Negative for hearing [...] and are negative. PHYSICAL EXAM Vitals BP 126/74 (BP Location: Left arm, Patient Position: Sitting) Pulse 81 Ht 152.4 cm (5') Wt 79.9 kg (176 lb 1.6 oz) SpO2 95% BMI 34.39 kg/m?? Weight: 79.9 kg (176 lb 1.6 oz) Height: 152.4 cm (5') Body mass index is 34.39 kg/m??. Physical Exam Vitals reviewed. Constitutional: General: [...] CHOLHDL 4 12/03/2022 TRIG 109 12/03/2022 SODIUM 143 01/29/2023 POTASSIUM 3.9 12/11/2022 CO2 27 01/29/2023 BUNSER 13 01/29/2023 GLUCOSE 86 01/29/2023 CREATININE 0.82 01/29/2023 CALCIUM 10.1 01/29/2023 CHLORIDE 98 01/29/2023 ALBUMIN 3.0 (L) 12/05/2022 ALT 18 12/05/2022 AST 36 12/05/2022 ALKPHOS 87 12/05/2022 BILITOT 0.2 12/05/2022 PROT 6.3 (L) 12/05/2022 WBC 13.6 (H) 12/10/2022 HGB 9.4 (L) 12/10/2022 TSH 0.90 12/03/2022 No results found for: POCCHOL , POCHDL , POCTRIG , POCLDL , POCNONHDL , POCCHLPL Results for orders placed or performed in visit on 01/29/23 Basic metabolic panel Result Value Ref Range Glucose 86 70 - 99 mg/dL BUN 13 8 - 27 mg/dL Creatinine, Serum 0.82 0.57 - 1.00 mg/dL eGFR 77 >59 mL/min/1.73 BUN/creat ratio 16 12 - 28 Sodium 143 134 - 144 mmol/L Potassium, sr 3.6 3.5 - 5.2 mmol/L Chloride 98 96 - 106 mmol/L CO2 27 20 - 29 mmol/L Calcium 10.1 8.7 - 10.3 mg/dL Specimen Status Report Result Value Ref Range Specimen Status Report Comment Magnesium Result Value Ref Range Magnesium 1.7 1.6 - 2.3 mg/dL 12/04/2022 2D Echo: SUMMARY: Normal LV [...] The full scanned/data report is available in [facility]. This study was interpreted by Romie Beatty MD Confirmed on 01/16/2023 - 12:13:20 by Romie Beatty MD Summary of Transmitted Events: # Date [...] medical record, and bloodwork/lipids. Letitia Abdalla MD, [facility] This note is dictated and transcribed using [employer] Direct Software. Employee Relations Manager variancesmay occur. Despite proofreading, typographical errors may occur. HAMMER PILE DRIVER OPERATOR documented in this encounter Miscellaneous Notes * Addendum Note - Matt Jewell MA - 07/19/2023 1:45 PM CSTAddended by: MATT JEWELL on: 07/19/2023 02:54 PM Modules accepted: Orders HAMMER PILE DRIVER OPERATOR documented in this encounter Plan of Treatment Not on file documented as of this encounter Procedures Procedure Name Priority Date/Time Associated Diagnosis Comments POCT LIPID PANEL Routine 07/19/2023 2:53 PM DROP HAMMER PILE DRIVER OPERATOR Mixed diabetic hyperlipidemia associated with type 2 diabetes mellitus (HCC) documented in this encounter Results * POCT lipid panel (07/19/2023 2:53 PM DROP HAMMER PILE DRIVER OPERATOR) Cholesterol, POC 206 mg/dL Comment:GLU = 132 HDL, POC 48 mg/dL Triglycerides, POC 168 mg/dL LDL Cholesterol POC 125 mg/dL Chol/HDL Ratio, POC 2.6 Non-HDL Cholesterol, POC 158 mg/dL Cholesterol Total, POC 206 mg/dL Capillary blood 07/19/2023 2 :53 PM DROP HAMMER PILE DRIVER OPERATOR Kurtis Abdalla MD POINT OF CARE TEST ORDER TEO Final Result documented in this encounter Visit Diagnoses Diagnosis Paroxysmal atrial flutter (CMS/HCC) (HCC)- Primary At risk for amiodarone toxicity with assistant terminal manager use Hypertension associated with diabetes (HCC) Unspecified essential hypertension Mixed diabetic hyperlipidemia associated with type 2 diabetes mellitus (HCC) Chronic anticoagulation Encounter for long-term (current) use of anticoagulants documented in this encounter Discontinued Medications Medication Sig Discontinue Reason Start Date End Da te simvastatin (ZOCOR) 80 mg tablet Take 1 tablet (80 mg total) by mouth nightly 07/19/2023 simvastatin (ZOCOR) 80 mg tablet Take 1 tablet (80 mg total) by mouth nightly 07/19/2023 simvastatin (ZOCOR) 80 mg tablet Take 1 tablet (80 mg total) by mouth nightly 07/19/2023 imipramine (TOFRANIL) 50 mg tablet TAKE 1 TABLET BY MOUTH DAILY - LAST REFILL UNTIL SEEN 11/18/2022 07/19/2023 Klor-Con M20 20 mEq CR tablet 12/24/2022 07/19/2023 melatonin tablet Take 2 tablets (6 mg total) by mouth nightly 12/21/2022 07/19/2023 Phospha 250 Neutral 250 mg tablet Take 1 tablet (250 mg total) by mouth 2 (two) times a day 01/14/2023 07/19/2023 colchicine (COLCRYS) 0.6 mg tablet Take 1 tablet (0.6 mg total) by mouth 2 (two) times a day 03/06/2023 07/19/2023 documented as of this encounter Historical Medications * This list may reflect changes made after this encounter. Medication Sig Dispense Quantity Refills Last Filled Start D ate End Date cholecalciferol (Vitamin D3) 2000 unit tablet added in this encounter Care Teams Stone Gluer Relationship Specialty Start Date End Date Tio Shea MD PCP - General Family Medicine 05/01/21 documented as of this encounter
--- OUTSIDE RECORDS SUMMARY | 2024-08-01 16:57 | XMS_ITS | Encounter Summary ---
Author Organization [facility] Healthcare Address [address] [place] [address] Care Team Providers Care Child Abuse Worker Name Role Phone Tio Shea MD Primary Care Provider [phone] Encounter Details Date Type Department Care Team (Late st Contact Info) Description 11/08/2023 Telephone [facility] Medical [facility] Cardiology [address] [place] [address] Kurtis Abdalla MD [address] [facility] [address] [place] [address] Social History Tobacco Use Types Packs/Day Years [...] on file Legal Sex Female 6:47 PM HATCH BOSS Gender Identity Not on file Sexual Orientation Not on file documented as of this encounter Ordered Prescriptions Prescription Sig Dispense Quantity Refills Last Filled Start Date End Date Eliquis 5 mg tablet Take 1 tablet (5 mg total) by mouth every 12 (twelve) hours 180 tablet 2 11/08/2023 documented in this encounter Miscellaneous Notes * Telephone Encounter - Afshan Walton MA - 11/08/2023 10:28 AM CDT Refills approved and sent to pharmacy as requested. * Telephone Encounter - Paula Mike - 11/08/2023 10:21 AM CDT Patient requesting refill for Eliquis 5 mg with 90 day supply. Please send to [facility] in [facility]. Thank you. documented in this encounter Plan of Treatment Not on file documented as of this encounter Visit Diagnoses Not on filedocumented in this encounter Discontinued Medications Medication Sig Discontinue Reason Start Date End Da te Eliquis 5 mg tablet Take 1 tablet (5 mg total) by mouth every 12 (twelve) hours Reorder 11/20/2022 11/08/2023 documented as of this encounter Care Teams Child Abuse Worker Relationship Specialty Start Date End Date Tio Shea MD PCP - General Family Medicine 05/01/21 documented as of this encounter
--- OUTSIDE RECORDS SUMMARY | 2024-08-01 16:57 | XMS_ITS | Encounter Summary ---
Author Organization [facility] Address [address] [place] [address] Care Team Providers Care Broadcast Journalist Name Role Phone Tio Shea MD Primary Care Provider [phone] Reason for Visit * Reason Comments Follow-up 2 MO Encounter Details Date Type Department Care Team (Late st Contact Info) Description 04/01/2023 1:30 PM CDT Office Visit [facility] Medical [facility] Cardiology [address] [facility] [address] [facility] [address] [place] [address] Alysa Puckett NP [address] [place] [address] Paroxysmal atrial flutter (CMS/HCC) (HCC) (Primary Dx); Paroxysmal atrial fibrillation (CMS/HCC) (HCC); Chronic anticoagulation; Mitral valve insufficiency, unspecified etiology; Post herpetic neuralgia Social History Tobacco Use Types Packs/Day Years [...] on file Legal Sex Female 6:47 PM DEVELOPMENT EXPERT Gender Identity Not on file Sexual Orientation Not on file documented as of this encounter Last Filed Vital Signs Vital Sign Reading Time Taken Comments Blood Pressure 108/62 04/01/2023 1:30 PM CDT Pulse 83 04/01/2023 1:30 PM CDT Temperature - - Respiratory Rate - - Oxygen Saturation 95% 04/01/2023 1:30 PM CDT Inhaled Oxygen Concentration - - Weight 76.7 kg (169 lb) 04/01/2023 1:30 PM CDT Height 152.4 cm (5') 04/01/2023 1:30 PM CDT Body Mass Index 33.01 04/01/2023 1:30 PM CDT documented in this encounter Progress Notes * Alysa Puckett NP - 04/01/2023 1:30 PM CDT Images from the original note were not included. [facility] Cardiology [address] [place] [address] Date of Visit: 04/01/2023 Patient ID: Stella Carroll 1955 Chief Complaint Patient presents with Follow-up 2 MO Stella Carroll is a 67 y.o. female who is a newly established patient of Dr. Abdalla with a history of paroxysmal atrial flutter returning to the office for a two-month follow-up visit. History of Present Illness: Stella Carroll is a 67 y.o. female with a PMHx of paroxysmal atrial flutter with rapid ventricular response, hypertension, hyperlipidemia, [id number] mitral regurgitation seen in follow-up for atrial flutter. 01/29/23 Initial visit with me (originally seen by Dr Smith): Patient was admitted to [place] 12/2022 after discharge from [facility] approximately 1 monthprior found to be profoundly [...] K sodium phosphate Toprol XL 50mg daily 04/01/23 CAT visit- labs were done at her last visit showing K and Mag WNL. She returns today for follow-up and her only complaint is ongoing shingles pain on the torso ever since October. She denies any palpitations or chest pain. She does get dyspnea with activity like walking across the parking lotbut this is unchanged. She denies orthopnea, PND, cough or wheezing. She is taking furosemide 20 mgdaily and has no lower extremity edema. She denies any bleeding problems. Records that I personally reviewed on the day of this visit include: (the interpretation is outlined in the HPI above) 01/29/[address] Abdalla and lab results. I have also reviewed: allergies, current medications, past family history, past medical history, past social history, past surgical history and problem list. Medical History: Past Medical History: Diagnosis Date Atrial flutter (CMS/HCC) (HCC) Hyperlipidemia Hypertension Syncope History reviewed. No pertinent surgical history. Social History Tobacco Use Smoking Status Never Passive exposure: Never Smokeless Tobacco Never Social History Tobacco Use Smoking status: Never Passive exposure: Never Smokeless tobacco: Never Substance and Sexual Activity Drug use: None Sexual activity: None Alcohol Use: Not At Risk (12/26/2022) AUDIT-C Frequency of Alcohol Consumption: Never Average Number of Drinks: Patient does not drink Frequency of Binge Drinking: Not on file Family History Problem Relation Age of Onset No Known Problems Mother No Known Problems Father Review of Systems Constitutional: Negative for malaise/fatigue, weight gain and weight loss. Cardiovascular: Positive for dyspnea on exertion. Negative for chest pain, claudication, leg swelling, near-syncope, orthopnea, palpitations, paroxysmal nocturnal dyspnea and syncope. Respiratory: Negative for cough and sleep disturbances due to breathing. Hematologic/Lymphatic: Negative for bleeding problem. Does not bruise/bleed easily. Neurological: Positive for paresthesias (torso post-herpetic neuralgia). Negative for dizziness andlight-headedness. Vital Signs: BP 108/62 (BP Location: Left arm, Patient Position: Sitting) Pulse 83 Ht 152.4 cm (5') Wt 76.7 kg (169 lb) SpO2 95% BMI 33.01 kg/m?? Physical Exam Constitutional: General: She is not in acute distress. Appearance: She is well-developed. She is obese. HENT: Head: Normocephalic and atraumatic. Ears: Comments: Cochlear implant Eyes: General: No scleral icterus. Conjunctiva/sclera: Conjunctivae normal. Neck: Vascular: No JVD. Trachea: No tracheal deviation. Cardiovascular: Rate and Rhythm: Normal rate and regular rhythm. Heart sounds: Normal heart sounds. No murmur heard. Pulmonary: Effort: Pulmonary effort is normal. No respiratory distress. Breath sounds: Normal breath sounds. Skin: General: Skin is warm and dry. Neurological: Mental Status: She is alert and oriented to person, place, and time. Psychiatric: Mood and Affect: Mood normal. Behavior: Behavior normal. No Known Allergies Current Outpatient Medications: allopurinoL (ZYLOPRIM) 100 mg tablet, Take 1 tablet (100 mg total) by mouth daily, Disp: , Rfl: amiodarone (PACERONE) 200 mg tablet, Take 1 tablet (200 mg total) by mouth daily, Disp: 30 tablet, Rfl: 0 amLODIPine (NORVASC) 10 mg tablet, Take 1 tablet (10 mg total) by mouth every morning, Disp: , Rfl: colchicine (COLCRYS) 0.6 mg tablet, Take 1 tablet (0.6 mg total) by mouth 2 (two) times a day, Disp: , Rfl: Eliquis 5 mg tablet, Take 1 tablet (5 mg total) by mouth every 12 (twelve) hours, Disp: , Rfl: furosemide (LASIX) 20 mg tablet, Take 1 tablet (20 mg total) by mouth daily, Disp: , Rfl: gabapentin (NEURONTIN) 100 mg capsule, Take 1 capsule (100 mg total) by mouth 3 (three) times a day, Disp: 90 capsule, Rfl: 0 imipramine (TOFRANIL) 50 mg tablet, TAKE 1 TABLET BY MOUTH DAILY - LAST REFILL UNTIL SEEN, Disp: , Rfl: Klor-Con M20 20 mEq CR tablet, , Disp: , Rfl: melatonin tablet, Take 2 tablets (6 mg total) by mouth nightly, Disp: , Rfl: metoprolol XL (TOPROL-XL) 50 mg extended release tablet, Take 1 tablet (50 mg total) by mouth daily, Disp: 90 tablet, Rfl: 3 omeprazole (PriLOSEC) 20 mg capsule, Take 1 capsule (20 mg total) by mouth daily, Disp: , Rfl: Phospha 250 Neutral 250 mg tablet, Take 1 tablet (250 mg total) by mouth 2 (two) times a day, Disp:, Rfl: simvastatin (ZOCOR) 80 mg tablet, Take 1 tablet (80 mg total) by mouth nightly, Disp: , Rfl: Lab Results Component Value Date POTASSIUM 3.9 12/11/2022 BUNSER 13 01/29/2023 CREATININE 0.82 01/29/2023 CHOL 183 12/03/2022 TRIG 109 12/03/2022 LDLCALC 116 12/03/2022 HDL 45 12/03/2022 Lab Results Component Value Date WBC 13.6 (H) 12/10/2022 HGB 9.4 (L) 12/10/2022 HCT 28.0 (L) 12/10/2022 MCV 94.9 12/10/2022 No results found for this or any previous visit (from the past 4 hour(s)). No results found for: POCCHOL , POCHDL , POCTRIG , POCLDL , POCNONHDL , POCCHLPL Assessment: Diagnoses and all orders for this visit: Paroxysmal atrial flutter (CMS/HCC) (HCC) (Primary) Paroxysmal atrial fibrillation (CMS/HCC) (HCC) Chronic anticoagulation Mitral valve insufficiency, unspecified etiology Post herpetic neuralgia Plan/Recommendations: She has a history of paroxysmal atrial fibrillation and atrial flutter. On exam today she sounds like she is maintaining sinus rhythm. She denies any palpitations. Her magnesium level was checked at the last visit and at the low end of the normal range so I advised her she does not need to restart magnesium supplementation. She is on amiodarone 200 mg daily. I will defer to her next follow-up with Dr. Abdalla as to whether or not amiodarone will be recommended long-term. She is on Eliquis for stroke risk reduction. She is not having any bleeding problems. Counseling performed at this visit included bleeding risks associated with systemic oral anticoagulation and whento seek emergency care,. Echocardiogram at [facility] in November showed moderate to severe MR. Echocardiogram [facility] inDecember 2022 showed mild MR. On exam today her murmur is unimpressive. She is not exhibiting any signs or symptoms of decompensated heart failure. A repeat echocardiogram is not indicated at this time. Continue furosemide 20 mg daily. She has post herpetic neuralgia on the torso ever since shingles in October. I advised her to continue follow-up with PCP regarding this. Return to the office to see Dr. Abdalla in 3-4 months. Call us sooner with questions or concerns. 04/01/2023 LELIA Parnell- Nurse Practitioner with [facility] Cardiology This note is dictated and transcribed using [employer] Direct Software. Seaming Inspector variances may occur. Despite proofreading, typographical errors may occur. documented in this encounter Plan of Treatment Not on file documented as of this encounter Visit Diagnoses Diagnosis Paroxysmal atrial flutter (CMS/HCC) (HCC)- Primary Paroxysmal atrial fibrillation (CMS/HCC) (HCC) Atrial fibrillation Chronic anticoagulation Encounter for long-term (current) use of anticoagulants Mitral valve insufficiency, unspecified etiology Post herpetic neuralgia Herpes zoster with other nervous system complications documented in this encounter Discontinued Medications Medication Sig Discontinue Reason Start Date End Da te potassium, sodium phosphates (PHOS-NAK) 280-160-250 mg powder in packet Take 1 packet by mouth 2 (two) times a day before breakfast and dinner Alternate therapy 12/11/2022 04/01/2023 magnesium oxide (MAG-OX) 400 mg (241.3 mg elemental magnesium) tablet Take 1 tablet (400 mg total) by mouth every morning Therapy completed 11/20/2022 04/01/2023 documented as of this encounter Historical Medications * This list may reflect changes made after this encounter. allopurinoL (ZYLOPRIM) 100 mg tablet Take 1 tablet (100 mg total) by mouth daily 03/08/2023 Phospha 250 Neutral 250 mg tablet Take 1 tablet (250 mg total) by mouth 2 (two) times a day 01/14/2023 07/19/2023 colchicine (COLCRYS) 0.6 mg tablet Take 1 tablet (0.6 mg total) by mouth 2 (two) times a day 03/06/2023 07/19/2023 added in this encounter Care Teams Broadcast Journalist Relationship Specialty Start Date End Date Tio Shea MD PCP - General Family Medicine 05/01/21 documented as of this encounter
--- OUTSIDE RECORDS SUMMARY | 2024-08-01 16:57 | XMS_ITS | Encounter Summary ---
Author Organization [facility] Healthcare Address [address] [place] [address] Care Team Providers Care Brusher Machine Name Role Phone Tio Shea MD Primary Care Provider [phone] Reason for Visit * Reason Comments Follow-up 6 mo Encounter Details Date Type Department Care Team (Late st Contact Info) Description 07/23/2024 2:30 PM AUTO CLUTCH SPECIALIST Office Visit [facility] Group Cardiology [address] [place] [address] Alysa Puckett NP [address] [place] [address] Paroxysmal atrial flutter (CMS/HCC) (HCC) (Primary Dx); Chronic anticoagulation; Hypertension associated with diabetes (HCC); Mixed diabetic hyperlipidemia associated with type 2 diabetes mellitus (HCC) Social History Tobacco Use Types Packs/Day Years [...] on file Legal Sex Female 6:47 PM AUTO CLUTCH SPECIALIST Gender Identity Not on file Sexual Orientation Not on file documented as of this encounter Last Filed Vital Signs Vital Sign Reading Time Taken Comments Blood Pressure 136/74 07/23/2024 2:44 PM AUTO CLUTCH SPECIALIST Pulse 84 07/23/2024 2:44 PM AUTO CLUTCH SPECIALIST Temperature - - Respiratory Rate - - Oxygen Saturation 93% 07/23/2024 2:44 PM AUTO CLUTCH SPECIALIST Inhaled Oxygen Concentration - - Weight 68 kg (150 lb) 07/23/2024 2:44 PM AUTO CLUTCH SPECIALIST Height 152.4 cm (5') 07/23/2024 2:44 PM AUTO CLUTCH SPECIALIST Body Mass Index 29.29 07/23/2024 2:44 PM AUTO CLUTCH SPECIALIST documented in this encounter Progress Notes * Alysa Puckett, GLENDY - 07/23/2024 2:30 PM CST Images from the original note were not included. [facility] Cardiology [address] [place] [address] Date of Visit: 07/23/2024 Patient ID: Stella Carroll 1955 Chief Complaint Patient presents with Follow-up 6 mo Stella Carroll is a 68 y.o. female who is an established patient of Dr. Smith with a history of atrial flutter returning for six-month follow-up. History of Present Illness: Stella Carroll is a 68 y.o. female with the following history: Paroxysmal atrial flutter on Eliquis Hypertension Hyperlipidemia Type 2 diabetes mellitus 07/23/2024 office visit with JIG HAND: She was last here 6 months ago which time she transitioned care toDr. Smith. She returns today for routine follow-up and has no cardiac concerns. She again mentions her post herpetic neuralgia. PCP advised her to stop her diuretic because she was hypokalemic. She had no occurrence of edema or shortness of breath after stopping it. Medical History: Past Medical History: Diagnosis Date [...] Known Problems Father Review of Systems Constitutional: Positive for weight loss (Decreased appetite from chronic pain and sinus drainage).Negative for malaise/fatigue and weight gain. Cardiovascular: Negative for chest pain, dyspnea on exertion, leg swelling, near-syncope, orthopnea, palpitations, paroxysmal nocturnal dyspnea and syncope. Respiratory: Negative for cough, shortness of breath and sleep disturbances due to breathing. Hematologic/Lymphatic: Negative for bleeding problem. Does not bruise/bleed easily. Neurological: Positive for paresthesias. Vital Signs: BP 136/74 (BP Location: Left arm, Patient Position: Sitting) Pulse 84 Ht 152.4 cm (5') Wt 68 kg (150 lb) SpO2 93% BMI 29.29 kg/m?? Physical Exam Constitutional: General: She is not in acute distress. Appearance: She is well-developed. HENT: Head: Normocephalic and atraumatic. Eyes: General: No scleral icterus. Conjunctiva/sclera: Conjunctivae normal. Neck: Vascular: No JVD. Trachea: No tracheal deviation. Cardiovascular: Rate and Rhythm: Normal rate and regular rhythm. Heart sounds: Murmur heard. Systolic murmur is present with a grade of 1/6. Pulmonary: Effort: Pulmonary effort is normal. No [...] by mouth every morning, Disp: , Rfl: cholecalciferol (Vitamin D3) 2000 unit tablet, , Disp: , Rfl: Eliquis 5 mg tablet, Take 1 tablet (5 mg total) by mouth every 12 (twelve) hours, Disp: 180 tablet,Rfl: 2 imipramine (TOFRANIL) 10 mg tablet, Take 1 tablet (10 mg total) by mouth nightly Will gradually taper up, Disp: , Rfl: latanoprost (XALATAN) 0.005 % ophthalmic solution, INSTILL 1 DROP INTO BOTH EYES EVERY NIGHT AT BEDTIME, Disp: , Rfl: magnesium gluconate 200 mg tablet, 1 tablet (200 mg total), Disp: , Rfl: metFORMIN (GLUCOPHAGE) 500 mg tablet, Take 1 tablet (500 mg total) by mouth 2 (two) times a day, Disp: , Rfl: metoprolol XL (TOPROL-XL) 50 mg extended release tablet, Take 1 tablet (50 mg total) by mouth daily, Disp: 90 tablet, Rfl: 3 Mounjaro 2.5 mg/0.5 mL pen injector, INJECT 2.5 MG (0.5 ML) SUBCUTANEOUSLY WEEKLY FOR 4 WEEKS, Disp: , Rfl: omeprazole (PriLOSEC) 20 mg capsule, Take 1 capsule (20 mg total) by mouth daily, Disp: , Rfl: potassium chloride ER 10 mEq CR tablet, Take 1 tablet/capsule (10 mEq total) by mouth daily, Disp: , Rfl: rosuvastatin (CRESTOR) 40 mg tablet, Take 1 tablet (40 mg total) by mouth daily, Disp: 90 tablet, Rfl: 3 Lab Results Component Value Date POTASSIUM 3.9 12/11/2022 BUNSER 21 01/24/2024 CREATININE 1.42 (H) 01/24/2024 EGFR 40 (L) 01/24/2024 CHOL 146 09/09/2023 TRIG 153 (H) 09/09/2023 LDLCALC 77 09/09/2023 HDL 42 09/09/2023 Lab Results Component Value Date WBC 10.8 01/24/2024 HGB 12.9 01/24/2024 HCT 39.5 01/24/2024 MCV 92 01/24/2024 No results found for this or any previous visit (from the past 4 hours). Lab Results Component Value Date POCCHOL 206 07/19/2023 POCHDL 48 07/19/2023 POCTRIG 168 07/19/2023 POCLDL 125 07/19/2023 POCNONHDL 158 07/19/2023 POCCHLPL 206 07/19/2023 Assessment: Diagnoses and all orders for this visit: Paroxysmal atrial flutter (CMS/HCC) (HCC) (Primary) Chronic anticoagulation Hypertension associated with diabetes (HCC) Mixed diabetic hyperlipidemia associated with type 2 diabetes mellitus (HCC) Plan/Recommendations: For her history of paroxysmal atrial flutter continue amiodarone and metoprolol with Eliquis for stroke risk reduction. I reviewed amiodarone toxicity monitoring with her colon CMP and TSH were checked 6 months ago and were unremarkable. I verify that patient gets routine eye exams. I advised her to notify us if any new shortness of breath develops. Blood pressure reading today is fair. Continue metoprolol and amlodipine. For hyperlipidemia continue rosuvastatin. For her diabetes continue metformin and Mounjaro. Routine follow-up with Dr. Smith in 6 months but reach out to us sooner with questions in the interim. 07/23/2024 LELIA Parnell- Nurse Practitioner with [facility] Cardiology This note is dictated and transcribed using [employer] Direct Software. Motorized Squad Sergeant variancesmay occur. Despite proofreading, typographical errors may occur. CLUTCH SPECIALIST documented in this encounter Plan of Treatment Not on file documented as of this encounter Visit Diagnoses Diagnosis Paroxysmal atrial flutter (CMS/HCC) (HCC)- Primary Chronic anticoagulation Encounter for long-term (current) use of anticoagulants Hypertension associated with diabetes (HCC) Unspecified essential hypertension Mixed diabetic hyperlipidemia associated with type 2 diabetes mellitus (HCC) documented in this encounter Discontinued Medications Medication Sig Discontinue Reason Start Date End Da te furosemide (LASIX) 20 mg tablet Take 1 tablet (20 mg total) by mouth daily Therapy completed 07/23/2024 gabapentin (NEURONTIN) 100 mg capsule Take 1 capsule (100 mg total) by mouth 3 (three) times a day Alternate therapy 12/11/2022 07/23/2024 documented as of this encounter Historical Medications * This list may reflect changes made after this encounter. imipramine (TOFRANIL) 10 mg tablet Take 1 tablet (10 mg total) by mouth nightly Will gradually taper up 07/17/2024 latanoprost (XALATAN) 0.005 % ophthalmic solution INSTILL 1 DROP INTO BOTH EYES EVERY NIGHT AT BEDTIME 06/08/2024 added in this encounter Care Teams Brusher Machine Relationship Specialty Start Date End Date Tio Shea MD PCP - General Family Medicine 05/01/21 documented as of this encounter
--- OUTSIDE RECORDS SUMMARY | 2024-08-01 16:57 | XMS_ITS | Clinical Summary ---
Author Organization [facility] Address [address] [place] [address] Care Team Providers Care Meat Selector Name Role Phone Tio Shea MD Primary Care Provider +1 -[phone] Allergies No known active allergies Medications omeprazole [...] Date At risk for amiodarone toxicity with residential u se 01/29/2023 Chronic anticoagulation 01/29/2023 Hypertension [...] Hypophosphatemia 12/11/2022 12/11/2022 Metabolic alkalosis 12/11/2022 12/12/19 23 Urinary tract infection 12/11/2022 05/0 04/2023 Encounters Date Type Department Care Team Description 07/23/2024 2:30 PM VOLUNTEER COORDINATOR Office Visit [facility] Medical [facility] Cardiology [address] [place] [address] Alysa Puckett NP Paroxysmal atrial flutter (CMS/HCC) (HCC) (Primary Dx); Chronic anticoagulation; Hypertension associated with diabetes (HCC); Mixed diabetic hyperlipidemia associated with type 2 diabetes mellitus (HCC) from Last 3 Months Medical History Medical History Date Comments Hypertension Hyperlipidemia Atrial flutter (CMS/HCC) (HCC) Syncope Family History Medical History Relation Name Comments No Known Problems Father No Known Problems Mother Relation Name Status Comments Father Mother Social History Tobacco Use Types Packs/Day Years [...] on file Legal Sex Female 6:47 PM VOLUNTEER COORDINATOR Gender Identity Not on file Sexual Orientation Not on file Obstetrics History Last Filed Vital Signs Vital Sign Reading Time Taken Comments Blood Pressure 136/74 07/23/2024 2:44 PM VOLUNTEER COORDINATOR Pulse 84 07/23/2024 2:44 PM VOLUNTEER COORDINATOR Temperature 36.8 ??C (98.3 ??F) 12/11/2022 4:09 AM CD T Respiratory Rate 18 12/11/2022 11:30 AM CDT Oxygen Saturation 93% 07/23/2024 2:44 PM VOLUNTEER COORDINATOR Inhaled Oxygen Concentration - - Weight 68 kg (150 lb) 07/23/2024 2:44 PM VOLUNTEER COORDINATOR Height 152.4 cm (5') 07/23/2024 2:44 PM VOLUNTEER COORDINATOR Body Mass Index 29.29 07/23/2024 2:44 PM VOLUNTEER COORDINATOR Plan of Treatment Health Maintenance Due Date Last Done Comments Albumin Creatinine Ratio, Urine 1953 Breast Cancer Screening-Mammogram 1953 Colon Cancer Screening-Colonoscopy 1953 Depression Screening 1953 Hepatitis C Screening 1953 Osteoporosis Screening-Bone Density Scan 1953 Dilated Eye Exam 1953 Foot Exam 1953 Pneumococcal vaccine 65+ (1 of 2 - PCV) 1959 Hepatitis B Screening 1971 Zoster Vaccine (1 of 2) 2003 Well Visit 65+ 2018 Hemoglobin A1C 06/06/2023 12/04/2022, 12/04/2022 Fall Risk Assessment 12/12/2023 12/11/2022 Covid-19 Vaccine (3 - 2023-2 5 season) 2024 01/18/2021, 12/19/2020 Influenza Vaccine (#1) 2024 Lipid Panel 09/09/2024 09/09/2023, 07/05, 12/03/2022 eGFR 01/23/2025 01/24/2024, 01/04, 12/11/2022, Additional history exists DTaP/Tdap/Td Vaccine (2 - Td or Tdap) 08/21/2028 08/21/2018 Procedures Procedure Name Priority Date/Time Associated Diagnosis Comments COMPREHENSIVE METABOLIC PANEL Routine 01/24/2024 1:29 PM CDT Paroxysmal atrial flutter (CMS/HCC) (HCC) Chronic anticoagulation At risk for amiodarone toxicity with residential use LIPID PANEL Routine 09/09/2023 10:30 AM VOLUNTEER COORDINATOR HEMOGLOBIN A1C Routine 12/04/2022 6:04 AM CDT [...] AM CDT Performed at: ??01 - [facility] [address] ??[id number] Marketing Planning Manager: Dominic Alicea PhD, Phone: ??[phone] us Ripa Katie Smith MD LAB BLOOD ORDERABLES Fi nal Result [facility] - * (ABNORMAL) Lipid panel (09/09/2023 10:30 AM VOLUNTEER COORDINATOR) Cholesterol 146 100 - 199 mg/dL [facility] - 01 Triglycerides 153(H) 0 - 149 mg/dL [facility] - 01 HDL Cholesterol 42 >39 mg/dL [facility] - 01 VLDL 27 5 - 40 mg/dL [facility] - 01 LDL, calculated 77 0 - 99 mg/dL [facility] - 01 09/09/2023 10:3 0 AM VOLUNTEER COORDINATOR 09/09/2023 Narrative [facility] - 09/10/2023 2:08 AM VOLUNTEER COORDINATOR Performed at: ??01 - [facility] [address] ??[id number] Marketing Planning Manager: Dominic Alicea PhD, Phone: ??[phone] Specimen Comment: A courtesy copy of this report has been sent to [phone] Kurtis Abdalla MD LAB BLOOD ORDERABLES Fin al Result Performing Organization Address City/[facility]/ZIP Co de Phone Number [facility] - 01 * (ABNORMAL) Hemoglobin A1c (12/04/2022 6:04 AM CDT) Hgb A1C 7.3(H) 4.0 - 5.6 % [facility] Estimated Average Glucose 163 mg/dL [facility] Comment: The ADA recommends reporting an estimated Average Glucose (eAG) with all Hemoglobin A1c results using the equation derived from a study of 507 normal and diabetic adults. ??Minority populations were underrepresented and children were not included. ?? (Diabetes Care 2020; 43(S1): S66-S76). ??The eAG is not equivalent to a fasting glucose. Blood 12/04/2022 6:0 4 AM CDT 12/04/2022 6:26 AM CDT us Bolivar Mclaughlin MD LAB BLOOD ORDERABLES Final Re sult [facility] Department [place] [address] from Last 3 Months or Most Recently Relevant to Health Maintenance Insurance MEDICARE COMMERCIAL GENERIC ([place]) [address] [place] [id number] MEDICARE COMMERCIAL GENERIC MEDICARE COMMERCIAL GENERIC Advance Directives For more information, please contact: [phone] * Full Code (Latest Code Status on File) Date Activated Date Inactivated Comments 12/04/2022 12:05 AM 12/11/2022 8:28 PM Care Teams Meat Selector Relationship Specialty Start Date End Date Tio Shea MD PCP - General Family Medicine 05/01/21
--- OUTSIDE RECORDS SUMMARY | 2024-08-01 16:57 | XMS_ITS | Encounter Summary ---
Author Organization [facility] Healthcare Address [address] [place] [address] Care Team Providers Care Court Stenographer Name Role Phone Tio Shea MD Primary Care Provider [phone] [phone] Encounter Details Date Type Department Care Team (Late st Contact Info) Description 09/09/2023 Orders Only [facility] Medical Group Cardiology [address] [facility] [address] [place] [address] [place] [address] [place] [address] NATALII[address] [place] [address] Social History Tobacco Use Types Packs/Day Years [...] on file Legal Sex Female 6:47 PM HEALTH CARE SANITARY TECHNICIAN Gender Identity Not on file Sexual Orientation Not on file documented as of this encounter Plan of Treatment Not on file documented as of this encounter Procedures Procedure Name Priority Date/Time Associated Diagnosis Comments SPECIMEN STATUS REPORT Routine 09/09/2023 10:30 AM HEALTH CARE SANITARY TECHNICIAN LIPID PANEL Routine 09/09/2023 10:30 AM HEALTH CARE SANITARY TECHNICIAN documented in this encounter Results * Specimen Status Report (09/09/2023 10:30 AM HEALTH CARE SANITARY TECHNICIAN) Specimen Status Report Comment [facility] - 01 Comment: Christoph Burgos LP Default Christoph Burgos LP Default A hand-written panel/profile was received from your office. In accordance with the [facility] Ambiguous Test Code Policy dated February 2003, we have completed your order by using the closest currently or formerly recognized AMA panel. ??We have assigned Lipid Panel, Test Code #261857 to this request. If this is not the testing you wished to receive on this specimen, please contact the [facility] Client Inquiry/Technical Services Department to clarify the test order. ??We appreciate your business. 09/09/2023 10:3 0 AM HEALTH CARE SANITARY TECHNICIAN 09/09/2023 Narrative [facility] - 09/10/2023 2:08 AM HEALTH CARE SANITARY TECHNICIAN Performed at: ??01 - [address] ??[id number] Heel Seat Sander: Dominic Alicea PhD, Phone: ??[phone] Kurtis Abdalla MD LAB BLOOD ORDERABLES Fin al Result [facility] - 01 * (ABNORMAL) Lipid panel (09/09/2023 10:30 AM HEALTH CARE SANITARY TECHNICIAN) Cholesterol 146 100 - 199 mg/dL [facility] - 01 Triglycerides 153(H) 0 - 149 mg/dL [facility] - 01 HDL Cholesterol 42 >39 mg/dL [facility] - 01 VLDL 27 5 - 40 mg/dL [facility] - 01 LDL, calculated 77 0 - 99 mg/dL [facility] - 01 09/09/2023 10:3 0 AM HEALTH CARE SANITARY TECHNICIAN 09/09/2023 Narrative [facility] - 09/10/2023 2:08 AM HEALTH CARE SANITARY TECHNICIAN Performed at: ??01 - [facility] [place] [id number] [facility] [place], [place] ??[id number] Heel Seat Sander: Dominic Alicea PhD, Phone: ??[phone] Specimen Comment: A courtesy copy of this report has been sent to [phone] us Kurtis Abdalla MD LAB BLOOD ORDERABLES Fin al Result [facility] - 01 documented in this encounter Visit Diagnoses Not on filedocumented in this encounter Care Teams Court Stenographer Relationship Specialty Start Date End Date Tio Shea MD PCP - General Family Medicine 05/01/21 documented as of this encounter
--- OUTSIDE RECORDS SUMMARY | 2024-08-01 16:57 | XMS_ITS | Encounter Summary ---
Author Organization [facility] Medical Group Address [address] [place] [address] Care Team Providers Care Dynamics Ax Technical Architect Name Role Phone Tio Shea MD Primary Care Provider [phone] [phone] Encounter Details Date Type Department Care Team (Late st Contact Info) Description 01/29/2023 Orders Only [facility] Medical [facility] Cardiology [address] [facility] [address] [place] [address] Kurtis Abdalla MD [address] [facility] NAT[address] [place] [address] Social History Tobacco Use Types [...] on file 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 Gender Identity Not on file Sexual Orientation Not on file documented as of this encounter Plan of Treatment Not on file documented as of this encounter Procedures Procedure Name Priority Date/Time Associated Diagnosis Comments SPECIMEN STATUS REPORT Routine 01/29/2023 4:01 PM CDT MAGNESIUM Routine 01/29/2023 4:01 PM CDT BASIC METABOLIC PANEL Routine 01/29/2023 4:01 PM CDT documented in this encounter Results * Magnesium (01/29/2023 4:01 PM CDT) Magnesium 1.7 1.6 - 2.3 mg/dL [facility] - 01 01/29/2023 4:01 PM CDT 01/29/2023 Narrative [facility] - 01/30/2023 8:16 AM CDT Performed at: ??01 - [address] ??[id number] Gas Operations Superintendent: Dominic Alicea PhD, Phone: ??[phone] Specimen Comment: A courtesy copy of this report has been sent to [phone] Kurtis Abdalla MD LAB BLOOD ORDERABLES Fin al Result [facility] - 01 * Specimen Status Report (01/29/2023 4:01 PM CDT) Pathologist [facility] Specimen Status Report Comment [facility] - 01 Comment: Ambscottie Abbrev BMP8 Default Ambig Abbrev BMP8 Default A hand-written panel/profile was received from your office. In accordance with the [facility] Ambiguous Test Code Policy dated February 2003, we have completed your order by using the closest currently or formerly recognized AMA panel. ??We have assigned Basic Metabolic Panel (8), Test Code #[id number] to this request. If this is not the testing you wished to receive on this specimen, please contact the [facility] Client Inquiry/Technical Services Department to clarify the test order. ??We appreciate your business. 01/29/2023 4:01 PM CDT 01/29/2023 Narrative [facility] - 01/30/2023 7:10 AM CDT Performed at: ??01 - [facility] [address] ??[id number] Gas Operations Superintendent: Dominic Alicea PhD, Phone: ??[phone] Kurtis Abdalla MD LAB BLOOD ORDERABLES Fin al Result Performing Organization Address [facility] Co de Phone Number [facility] - 01 * Basic metabolic panel (01/29/2023 4:01 PM CDT) Glucose 86 70 - 99 mg/dL [facility] - 01 BUN 13 8 - 27 mg/dL [facility] - 01 Creatinine, Serum 0.82 0.57 - 1.00 mg/dL [facility] - 01 eGFR 77 >59 mL/min/1.73 [facility] - 01 BUN/creat ratio 16 12 - 28 [facility] - 01 Sodium 143 134 - 144 mmol/L [facility] - 01 Potassium, sr 3.6 3.5 - 5.2 mmol/L [facility] - 01 Chloride 98 96 - 106 mmol/L [facility] - 01 CO2 27 20 - 29 mmol/L [facility] - 01 Calcium 10.1 8.7 - 10.3 mg/dL [facility] - 01 01/29/2023 4:01 PM CDT 01/29/2023 Narrative [facility] - 01/30/2023 7:10 AM CDT Performed at: ??01 - [facility] [address] ??[id number] Gas Operations Superintendent: Dominic Alicea PhD, Phone: ??[phone] Kurtis Abdalla MD LAB BLOOD ORDERABLES Fin al Result Performing Organization Address [facility] Co de Phone Number [facility] - 01 documented in this encounter Visit Diagnoses Not on filedocumented in this encounter Care Teams Dynamics Ax Technical Architect Relationship Specialty Start Date End Date Tio Shea MD PCP - General Family Medicine 05/01/21 documented as of this encounter
--- OUTSIDE RECORDS SUMMARY | 2024-08-01 16:58 | XMS_ITS | Encounter Summary ---
Author Organization [facility] Address [address] [place] [address] Phone Care Team Providers Care Dietetics Director Name Role Phone Tio Shea MD Primary Care Provider [phone] [phone] Reason for Visit * Audiology (Routine) - Closed Specialty Diagnoses / Procedures Referred By Contac t Referred To Contact Audiology Diagnoses Sensorineural hearing loss, bilateral Procedures Evaluation, cochlear implant programming and auditory rehabilitation per [facility] adult cochlear implant protocol Nestor Douglass MD Phone: tel: fax: [facility] Otolaryngology [address] [place] [address] [address] [place] [address] [place] [address] Phone: tel: fax: Referral ID Status Reason Start Date Expiration Date Visits Re quested Visits Authorized [id number] Closed 05/29/2021 06/28/2022 12 12 Encounter Details Date Type Department Care Team (Latest Contact Info) Description 06/19/2021 12:00 PM VISCOSE CELLAR CHARGE HAND Procedure visit [facility] Otolaryngology [address] [place] [address] [address] [place] [address] [place] [address] Ileana Celis, Amparo [address] [place] [address] Sensorineural hearing loss, bilateral Social History Tobacco Use Types Packs/Day Years Used Date Smoking Tobacco: Never Assessed Comments Unknown Sex and Gender Information Value Date Recorded Sex Assigned at Not on file Legal Sex Female 6:47 PM VISCOSE CELLAR CHARGE HAND Gender Identity Not on file Sexual Orientation Not on file documented as of this encounter Procedure Notes * Ileana Celis Au.D. - 06/19/2021 12:00 PM CST Procedures Implant: N22 Ear: Left Processor: N7/white/number 1 magnet Processor: N6/brown/number 2 magnet ?? The patient has a right CI as well but she doesn't use the right CI ?? Maps in N7 speech processor: P1 81 no scan, asc, adro, WNR, P2 81 no scan, asc, adro WNR, SNR-NR, P3 80 Scan and all IP, Cs up by 2 levels MAPS in N6 Speech Processor: P1 77 no scan asc, adro, WNR, P2 no scan all IP, P3 Beam P4: scan and all IP ?? Current settings N7 P1, vol 7, sens 12. Audio accessories: Gave patient donated [employer] Cell phone: No The patient has an old iPad ? SERVICES PROVIDED: Evaluation of Auditory Function with new N7 processor (Time: 12:00 - 12:40) ?? PROCEDURES: The patient attended the session with no one. The patient reported: That she has been doing fine with her N7 processor. She did get the N7 cable/coils for the N22 and the number 1 magnet. These were put on her processor. I got the one I loaned her back. She gave me the original equipment to send back to [facility]. They did not send her the RMA stuff. I will contact t hem. ?? Evaluation Testing was completed to assess the patient's detection of sound and speech understanding and to compare to previous testing. ?? Patient was using program 1, map 81, volume 7 sensitivity 12. ?? Sound field Thresholds ?? 250 948 852 7626 1500 2000 3000 4000 6000 Hz CI 16 22 22 18 16 12 16 20 14 dB HL ? dB HL ?? CNC Words @ 60 dB SPL CI:LE List: 4 Word Total: 36% (42%) Phoneme Total: 66% (63%) ?? AzBio Sentences @ 60 dB SPL CI:LE List: 10 Total: 51% (49%) ?? [employer]Bio Sentences @ 60 dB SPL +10 SNR [place] Babble CI:LE List: Total: DNT ?? Aided sound field thresholds were good and indicate good audibility for speech. The patient scored about the same on words and sentences compared to previous tests with the N6 processor. The N6 and N7 processors have similar performance outcomes. Results of testing were discussed with the patient. ?Programming ?? A head check was completed and no redness or irritation was seen at the magnet site. ?? The patient was happy with her N7 programs so they were not changed. We practiced with the N7 marisa on her iPad. We had a donated TV streamer, which I gave her to try out at home. I showed her how to use it and paired it with her N7 processor. ? I have personally spent the time documented above evaluating the auditory function post implant of this patient. This time does not include time spent on cochlear implant programming or reprogramming. ? The note as documented above reflects my personal service. ? RECOMMENDATIONS: Return for Annual evaluation or sooner if needed. Try the TV streamer. I will return her equipment to [facility]. OSE CELLAR CHARGE HAND documented in this encounter Plan of Treatment Not on file documented as of this encounter Visit Diagnoses Diagnosis Sensorineural hearing loss, bilateral documented in this encounter Orders Audiology Count Last Ordered Date First Orde red Date EVALUATION, COCHLEAR IMPLANT PROGRAMMING AND AUDITORY REHABILITATION 1 06/19/2021 documented in this encounter Care Teams Dietetics Director Relationship Specialty Start Date End Date Tio Shea MD PCP - General Family Medicine 05/01/21 documented as of this encounter
--- OUTSIDE RECORDS SUMMARY | 2024-08-01 16:58 | XMS_ITS | Encounter Summary ---
Author Organization [facility] Medical Group Address [address] [facility] [address] [place] [address] Care Team Providers Care Data Center Solutions Architect Name Role Phone Tio Shea MD Primary Care Provider +1 [phone] Encounter Details Date Type Department Care Team (Late st Contact Info) Description 11/15/2022 Orders Only [facility] Medical [facility] Cardiology [address] [place] [address] Belinda Smith MD [address] [place] [address] Social History Tobacco Use Types Packs/Day Years Used Date Smoking Tobacco: Never Assessed Comments Unknown Sex and Gender Information Value Date Recorded Sex Assigned at Not on file Legal 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 Gender Identity Not on file Sexual Orientation Not on file documented as of this encounter Plan of Treatment Not on file documented as of this encounter Procedures Procedure Name Priority Date/Time Associated Diagnosis Comments CARDIOLOGY DOCUMENT SCAN Routine 11/15/2022 documented in this encounter Results * Cardiology Document Scan (11/15/2022) Anatomical Region Laterality Modality Other [facility] Katie Smith MD CV CARDIAC SERVICES PRO CEDURES Final Result documented in this encounter Visit Diagnoses Not on filedocumented in this encounter Care Teams Data Center Solutions Architect Relationship Specialty Start Date End Date Tio Shea MD PCP - General Family Medicine 05/01/21 documented as of this encounter
--- OUTSIDE RECORDS SUMMARY | 2024-08-01 16:58 | XMS_ITS | Encounter Summary ---
Author Organization [facility] Healthcare Address [address] [place] [address] Care Team Providers Care Chief Optometry Service Name Role Phone Tio Shea MD Primary Care Provider [phone] [phone] Encounter Details Date Type Department Care Team (Late st Contact Info) Description 11/20/2022 Orders Only [facility] Health Information Management [address] [place] [address] Scanning, Provider Social History Tobacco Use Types Packs/Day Years Used Date Smoking Tobacco: Never Assessed AUDIT-C Answer Date Recorded Q1: How often [...] feel afraid or unsafe? 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 Gender Identity Not on file Sexual Orientation Not on file documented as of this encounter Plan of Treatment Not on file documented as of this encounter Procedures Procedure Name Priority Date/Time Associated Diagnosis Comments SCAN - RADIOLOGY/IMAGING 11/20/2022 9:28 PM CDT documented in this encounter Results * SCAN - RADIOLOGY/IMAGING (11/20/2022 9:28 PM CDT) Anatomical Region Laterality Modality Other us Provider Scanning Final Result documented in this encounter Visit Diagnoses Not on filedocumented in this encounter Care Teams Chief Optometry Service Relationship Specialty Start Date End Date Tio Shea MD PCP - General Family Medicine 05/01/21 documented as of this encounter
--- OUTSIDE RECORDS SUMMARY | 2024-08-01 16:58 | XMS_ITS | Encounter Summary ---
Author Organization [facility] Address [address] [facility] [address] [place] [address] Care Team Providers Care Rock Climbing Instructor Name Role Phone Tio Shea MD Primary Care Provider [phone] [phone] Encounter Details Date Type Department Care Team (Late st Contact Info) Description 11/26/2022 Telephone [facility] Cardiology [address] [facility] [address] [place] [address] Tio Villavicencio MD [address] [facility] [address] [place] [address] Social History Tobacco Use Types Packs/Day Years Used Date Smoking Tobacco: Never Assessed Personal Safety Answer Date Recorded Have you ever been in or are you currently in a harmful physical or emotional relationship or is someone making you feel afraid or unsafe? 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 Smith's response. Pt states she is admitted at [facility] currently. Informed to follow medication discharge instructions when she is released from hospital. Pt/ verbalized understanding. * Telephone Encounter - Summer Jewell MA - 12/04/2022 3:42 PM CDT LM asking to call office. Fax sent to pharmacy stating pt should on be on sotalol, not sotalol and propranolol per RP * Telephone Encounter - Afshan Walton MA - 11/26/2022 4:53 PM CDT Called [facility] and verified dosing and that the patient should continue the propranolol along with the sotalol per [facility] D/C summary. LM for patient's . * Telephone Encounter - Benita Anderson MBA - 11/26/2022 4:06 PM CDT Patient's spouse came in stating the pharmacy was unable to fill meds prescribed at ED by Dr. Arguelles at . Sending a message to [facility] to please enter a script for 2 cardiac meds MJF/CK suggested at 11/19 cardiac consult (note scanned in Epic) Meds prescribed are: Diltiazam HCL 120 mg, ER 24 hr Sotalol 80 mg Pharmacy is: [facility] in [address] [address], If pt/ call in, please provide this information to them. documented in this encounter Plan of Treatment Not on file documented as of this encounter Visit Diagnoses Not on filedocumented in this encounter Care Teams Rock Climbing Instructor Relationship Specialty Start Date End Date Tio Shea MD PCP - General Family Medicine 05/01/21 documented as of this encounter
--- OUTSIDE RECORDS SUMMARY | 2024-08-01 16:58 | XMS_ITS | Encounter Summary ---
Author Organization [facility] Healthcare Address [address] [place] [address] Care Team Providers Care Sales Director Name Role Phone Tio Shea MD Primary Care Provider [phone] Reason for Visit * Reason Comments Syncope * Auth/Cert (Routine) Specialty Diagnoses / Procedures Referred By Contac t Referred To Contact Diagnoses Syncope and collapse Hypokalemia Prolonged Q-T interval on ECG Abnormal EKG Anticoagulated Procedures NA Referral ID Status Reason Start Date Expiration Date Visits Re quested Visits Authorized [id number] 1 1 Encounter Details Date Type Department Care Team (Latest Contact Info) Description 12/03/2022 3:38 PM CDT - 12/11/2022 4:23 PM CDT Hospital Encounter [facility] [address] [place] [address] Anny Gongora MD [address] [place] [address] Caridad Akhtar MD [address] [place] [address] Kirsten Martins MD [address] [place] [address] Zia Mendoza MD [phone] [address] Syncope and collapse (Primary Dx); Anticoagulated; Prolonged Q-T interval on ECG; Hypokalemia; Abnormal EKG; Atrial fibrillation, unspecified type (HCC) Discharge Disposition: Discharge to an Rehab facility Social History Tobacco Use Types Packs/Day Years Used Date Smoking Tobacco: Never Passive Smoke Exposure: Never Smokeless Tobacco: Never Tobacco Cessation:Counseling Given: Not Answered Personal Safety Answer Date Recorded Have you ever been in or are you currently in a harmful physical or emotional relationship or is someone making you feel afraid or unsafe? Denies 12/03/2022 Comments No Sex and Gender Information Value Date Recorded Sex Assigned at Not on file Legal Sex Female 6:47 PM SHEET [employer]AYER Gender Identity Not on file Sexual Orientation Not on file documented as of this encounter Last Filed Vital Signs Vital Sign Reading Time Taken Comments Blood Pressure 119/62 12/11/2022 11:30 AM CDT Pulse 72 12/11/2022 11:30 AM CDT Temperature 36.8 ??C (98.3 ??F) 12/11/2022 4:09 AM CD T Respiratory Rate 18 12/11/2022 11:30 AM CDT Oxygen Saturation 96% 12/11/2022 11:30 AM CDT Inhaled Oxygen Concentration - - Weight 79.9 kg (176 lb 1.6 oz) 12/11/2022 6:10 A M CDT Height 149.9 cm (4' 11 ) 12/03/2022 11:06 PM CDT Body Mass Index 35.57 12/03/2022 11:06 PM CDT documented in this encounter Discharge Summaries * Jessica Roy MD - 12/11/2022 1:56 PM CDT Inpatient Discharge Summary BRIEF OVERVIEW Admitting Provider: Anny Gongora MD Discharge Provider: Zia Mendoza MD Primary Care Physician at Discharge: Tio Shea MD [phone] Admission Date: 12/03/2022 Discharge Date: 12/11/2022 Admission Location: [facility] Problems/Diagnoses: Principal Problem: Syncope and collapse Active Problems: Atrial fibrillation (CMS/HCC) (HCC) Atrial flutter (CMS/HCC) (HCC) Leukocytosis Type 2 diabetes mellitus (HCC) Resolved Problems: Hypokalemia Prolonged Q-T interval on ECG KARINA (acute kidney injury) (CMS/HCC) (HCC) Hypophosphatemia Metabolic alkalosis Urinary tract infection DETAILS OF HOSPITAL STAY Presenting Problem/History of Present Illness: - HPI copied from Dr. Amaral, Leonard Maurer MD's H&P dated 12/03 Stella Carroll is a 67 y.o. woman with a history of a-fib on apixaban, MVR, sensorineural hearing loss who presents with 3-4 weeks of syncopal events found to be profoundly hypokalemic with metabolic alkalosis. She reports 3 weeks ago she was hospitalized at [facility] for approximately 2 weeks due to syncopal events (unable to see records of this). At that time, she was diagnosed with a-fib and MR which she was told was severe. She was started on apixaban, sotalol, propranolol, diltiazem, furosemide, and HCTZ and discharged home in the middle of last week (she's unsure which date). At home, she continued to have syncopal events though less frequently, maybe once daily though she is not able to clearly delineate this and I was unable to get a hold of her with multiple phone calls. She reports these episodes as feeling suddenly weak and either falling to the floor involuntarily or being helped to the floor. She denies injury from any of these events. No prodrome, chest pain, palpitations. Afterwards, she sometimes cannot recall the specifics of the event. She deniesany tongue-biting, urinary or fecal incontinence, or rhythmic/jerking movements. On review of systems, she endorses poor PO intake due to not knowing how to prepare heart healthy foods at home, constipation (no bowel movement since hospital discharge), dysuria, urinary frequency, and suprapubic pain. She denies N/V aside from an episode of regurgitation of liquid KCl in the ED today. In the ED: - Vitals: 36.9, HR 60-70's, BP 110-130's/60's, RR ~20, SpO2 90-99% on room air - Labs: K 2.1 > 1.9, CO2 > 45, Cl 75, Mg 2.3, creatinine ~1.4, calcium 10.9, WBC 18.9 with neutrophilia, VBG 7.54/62, trop 88 > 108, UA 2+ LE, pyuria - CTH with bilateral cochlear implants with streak artifact limiting read however no intracranial process - CXR with mild bibasilar atelectasis, no pulmonary edema, consolidation, or pneumothorax, normal cardiac silhouette - EKG with junctional rhythm with rate in the 70's, TWI in AVR and V1, prolonged QT of 604, mild STdepressions in 1, 2, V4-V6 On arrival to the MICU, temp 36.6, HR 66, BP 121/57, RR 20, SpO2 95% on room air. EKG with NSR, QT 618, still with TWI in AVR and V1, mild ST depressions in V4-V6. Hospital Course: Stella Carroll is a 67 y.o. woman with a history of recently diagnosed Afib/flutter on apixaban and sensorineural hearing loss who presented 12/03/22 with 3-4 weeks of syncopal events found to be profoundly hypokalemic with metabolic alkalosis and KARINA requiring MICU admission. Her syncopal episodes werethought to be multifactorial in the setting of profound electrolyte abnormalities, polypharmacy (furosemide, HCTZ, sotalol, propranolol, diltiazem, gabapentin, cyclobenzaprine, alprazolam at home), and UTI. Her electrolytes were aggressively repleted and she was started on CTX for UTI considering her symptoms and leukocytosis. Mrs. Carroll later went into AFlutter RVR vs Afib w/ stable BPs that required multiple doses of metop and amio bolus x2 for conversion to NSR. She was attempted on a transition to dilt; however, asymptomatic and HDS Afib w RVR recurred that subsequently switched to AFlutter 2:1 requiring amio bolus for conversion on 12/06, at which time she was continued on amio drip. EP was consulted, and the patient was transitioned to po amio to continue her load, which she toleratedwithout issue. She was also initiated on metop. On day of discharge, she remains asymptomatic with no recurrence of Afib or flutter. #Atrial fibrillation/flutter Was potentially on sotalol 80 mg BID, propranolol 120 mg daily, and diltiazem 120 mg ER daily. QTc over 600 at presentation. Was in sinus rhythm on presentation; around 4am on 12/05, went into likely AFlutter RVR vs Afib (stable BPs); given metop 5 x3 with no response, then given amio 150 IV bolus x2; subsequently HR improved; on telemetry, seemed to convert back to NSR at 5:53am on 12/05; amio drip was started at 1 around 8am on 12/05, and the patient was later transitioned to dilt. 12/06 early AM, patient again went into asymptomatic and HDS AFib w/ RVR unresponsive to metop IV 5 and po dilt, latertransitioned to Aflutter with 2:1, converted to NSR w/ amio bolus and reinitiation of amio drip. Pthas been in NSR since re-initiation of amio drip on 12/06 and transition to po amio on 12/08. - EP consult - 12/08 Converted amio drip to 400mg TID for load - as of 12/11 after first AM dose, 5860 mg - Discharge rec: amiodarone 400mg daily for 30 days, then transition to 200mg daily - Follow up with local tank builder helper Dr. Tio Villavicencio at [facility]; no need for EP specific follow up - Trended EKGs, final QTc 451 - Metop tartrate 12.5 mg q6 started 12/07 PM, uptitrated 12/08, consolidated to metop XL 50 mg daily 12/09 - Pt was monitored on tele - Electrolytes repleted as below - Home apixaban 5 BID To Do: - Sleep study referral outpatient - 30 day event monitor was provided on discharge, results should be sent to PCP #Hypokalemia, resolved #Hypochloremia, resolved #Metabolic alkalosis, resolved Hypokalemia on presentation to 1.9 with hypochloremia to 75 and metabolic alkalosis. Denies N/V. Suspect etiology is iatrogenic from home diuretics (furosemide, HCTZ). CO2 improved to 29 on 12/07. - Held diuretics while inpatient, discontinue HCTZ on discharge and dose reduce home lasix to 20 mgprn - BMP, Mg, Phos q12 and repleted - phos QID --> with meals To Do: - Check BMP + Mg + Phos in one week #Syncope Suspect in setting of profound electrolyte abnormalities, polypharmacy (furosemide, HCTZ, sotalol, propranolol, diltiazem, gabapentin, cyclobenzaprine, alprazolam at home), and UTI. Initial EKG sinusrhythm with prolonged QTc. TSH, trops unremarkable. CTH w/o acute abnormality (note cochlear implants). TTE in the MICU showed trace-mild MR; normal LA; PASP 30s; otherwise unremarkable. Less likely vasovagal, neurogenic. Orthostatic vitals negative. No recurrence while inpatient. - PT/OT --> acute rehab, pt agreeable - 30 day event monitor as above #KARINA Admit creatinine 1.4 from 0.8 on 11/19/22. Improved with IVF. Suspect 2/2 over- diuresis. Pt w/ mild LE swelling 12/09, reinitiated dose-reduced home lasix with Cr bump from 0.94 to 1.35, subsequently improved with holding diuresis. 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 Outside TTE 11/19/22: LVEF 60-65%, severe MR with mildly calcified MV annulus, mildly enlarged LA, mild TR, PASP 45. Repeat TTE in house showed trace-mild MR; normal LA; PASP 30s; otherwise unremarkable. - holding diuresis in the setting of euvolemia #Leukocytosis #UTI, resolved ED UA with 2+ LE, pyuria, suprapubic pain and dysuria and WBC 18.9. Was started on CTX, but subsequently UCx had insufficient growth. Leukocytosis improved with treatment, then returned; however, OSHrecords in media tab with WBC 10.4 on 11/15/22 and 14.9 on 11/18/22. Note - CXR on admission w/ no consolidation. - Completed abx course of CTX given symptoms and leukocytosis To Do: - Check CBC in one week #DM2 Last A1c 12/04/2022: Hgb A1C 7.3. No home meds. - Carb-consistent diet, accuchecks, scheduled + SSI, hypoglycemia protocol while inpatient To Do: - Follow up w/ PCP #HLD -home simvastatin 80 switched to rosuvastatin 40 mg daily considering drug drug interactions with antiarrhythmics #GERD -home PPI #Mood disorder, NOS -home imipramine 50 mg daily #Post-herpetic neuralgia Had shingles 6 weeks ago treated with Valtrex. - Gabapentin 100 TID - Acetaminophen PRN, lidocaine patches PRN Active Issues Requiring Follow-up: BMP and CBC in one week for electrolytes (K, Mg, Phos) and Cr and trending leukocytosis Cardiology follow up Sleep study referral Event monitor provided on discharge Anemia (Note: Hb 10.9 on 11/18/22 per OSH records) T2DM Test Results Pending at Discharge: None Operative Procedures Performed: None Other Procedures: None Pertinent Test Results: Cr on discharge 0.89 WBC on discharge 13.6 Hb on discharge 9.4 (Note: Hb 10.9 on 11/18/22 per OSH records) Discharge Details Physical Exam at Discharge: Discharge Condition: good Pulse: 72 Resp: 18 BP: 119/62 Temp: 36.8 ??C (98.3 ??F) Weight: 79.9 kg (176 lb 1.6 oz) Pertinent Exam Findings at Discharge: Constitutional: Female appearing stated age in NAD. Eyes: Anicteric, no discharge. ENT: NCAT. Moist mucus membranes. Hard of hearing w/ implants in place. CV: RRR, no m/r/g. 2+ radial pulses b/l. No JVD. Lungs: Non-labored breathing. Clear to auscultation in all lung verde. Trachea midline. GI: Atraumatic. Soft, non-tender, non-distended. Normoactive bowel sounds to auscultation. Skin: No new rashes, lesions or bruises. Extremities: Trace lower extremity edema bilaterally. Neurologic: AOx4, non-focal. Psychiatric: Normal affect and mood. Discharge Disposition: Discharge to SNF Code Status at Discharge: Full Discharge Instructions: You were admitted to the hospital for syncope, electrolyte abnormalities, and heart arrhythmias called atrial fibrillation and atrial flutter. You required ICU level care at first and then were able to go to the cardiology floor. Your arrhythmia medications were adjusted and you remained in a normal heart rhythm. It is VERY IMPORTANT that you take your blood thinner Eliquis to help prevent blood clots and your heart medicines called Amiodarone and Metoprolol to help control your heart rhythm and rate. Please see the attached handouts for more information about blood thinners and the heart arrhythmiayou had. Please make sure to follow up with your tank builder helper and to have blood work completed in one week. Your cardiology appointment has now been rescheduled. Your cardiology appointment is now December 26 at 3pm at [facility] [address] in [place], [place]. Please call to confirm your appointment. Discharge Medications: Current Medications TAKE these medications amiodarone 200 mg tablet Take 2 tablets (400 mg total) by mouth daily for 30 days, THEN 1 tablet (200 mg total) daily. Commonly known as: PACERONE Start taking on: December 11, 2022 Eliquis 5 mg tablet Take 1 tablet (5 mg total) by mouth every 12 (twelve) hours Generic drug: apixaban furosemide 20 mg tablet Take 1 tablet (20 mg total) by mouth every third day as needed (if gain more than 2 pounds in a day or 5 pounds in a week) Commonly known as: LASIX gabapentin 100 mg capsule Take 1 capsule (100 mg total) by mouth 3 (three) times a day Commonly known as: NEURONTIN imipramine 50 mg tablet TAKE 1 TABLET BY MOUTH DAILY - LAST REFILL UNTIL SEEN Commonly known as: TOFRANIL magnesium oxide 400 mg (241.3 mg elemental magnesium) tablet Take 1 tablet (400 mg total) by mouth every morning Commonly known as: MAG-OX metoprolol XL 50 mg extended release tablet Take 1 tablet (50 mg total) by mouth daily Commonly known as: TOPROL-XL Start taking on: December 12, 2022 omeprazole 20 mg capsule Take 1 capsule (20 mg total) by mouth daily Commonly known as: PriLOSEC potassium, sodium phosphates 280-160-250 mg powder in packet Take 1 packet by mouth 2 (two) times a day before breakfast and dinner Commonly known as: PHOS-NAK rosuvastatin 40 mg tablet Take 1 tablet (40 mg total) by mouth daily Commonly known as: CRESTOR Outpatient Follow-Up: Future Appointments Date Time Provider Department Center 12/26/2022 3:00 PM Barbara Marlow NP [facility] Specialty Contact Information for Follow-ups [facility] (All Locations) Next Steps: Follow up Questions: Please select the performing region: [facility] (All Locations) # of visits: 1 Referral Status: Pending Authorization Cosigned by Zia Mendoza MD at 12/11/2022 5:55 PM CDT documented in this encounter Discharge Instructions * Discharge Instructions* Dylan Smith MD - 12/09/2022 9:27 AM CDT You were admitted to the hospital for syncope, electrolyte abnormalities, and heart arrhythmias called atrial fibrillation and atrial flutter. You required ICU level care at first and then were able to go to the cardiology floor. Your arrhythmia medications were adjusted and you remained in a normal heart rhythm. It is VERY IMPORTANT that you take your blood thinner Eliquis to help prevent blood clots and your heart medicines called Amiodarone and Metoprolol to help control your heart rhythm and rate. Please see the attached handouts for more information about blood thinners and the heart arrhythmiayou had. Please make sure to follow up with your tank builder helper and to have blood work completed in one week. Your cardiology appointment has now been rescheduled. Your cardiology appointment is now December 26 at 3pm at [facility] [address] in [place], [place]. Please call to confirm your appointment. * Attachments The following attachments cannot be sent through Care Everywhere. * Blood Thinners (Discharge Care) (Latvian) * A-fib (Atrial Fibrillation) (Discharge Care) (Latvian) documented in this encounter Medications at Time of Discharge omeprazole (PriLOSEC) 20 mg capsule Take 1 capsule (20 mg total) by mouth daily 11/19/2022 amiodarone (PACERONE) 200 mg tablet Take 2 tablets (400 mg total) by mouth daily for 30 days, THEN 1 tablet (200 mg total) daily. 30 tablet 12/11/2022 3 Eliquis 5 mg tablet Take 1 tablet (5 mg total) by mouth every 12 (twelve) hours 11/20/2022 4 furosemide (LASIX) 20 mg tablet Take 1 tablet (20 mg total) by mouth every third day as needed (if gain more than 2 pounds in a day or 5 pounds in a week) 12 tablet 12/11/2022 3 gabapentin (NEURONTIN) 100 mg capsule Take 1 capsule (100 mg total) by mouth 3 (three) times a day 90 capsule 12/11/2022 4 imipramine (TOFRANIL) 50 mg tablet TAKE 1 TABLET BY MOUTH DAILY - LAST REFILL UNTIL SEEN 11/18/2022 3 magnesium oxide (MAG-OX) 400 mg (241.3 mg elemental magnesium) tablet Take 1 tablet (400 mg total) by mouth every morning 11/20/2022 3 metoprolol XL (TOPROL-XL) 50 mg extended release tablet Take 1 tablet (50 mg total) by mouth daily 30 tablet 12/12/2022 3 potassium, sodium phosphates (PHOS-NAK) 280-160-250 mg powder in packet Take 1 packet by mouth 2 (two) times a day before breakfast and dinner 60 packet 12/11/2022 3 rosuvastatin (CRESTOR) 40 mg tablet Take 1 tablet (40 mg total) by mouth daily 30 tablet 12/11/2022 3 documented as of this encounter Ordered Prescriptions Prescription Sig Dispense Quantity Refills Last Filled Start Date End Date rosuvastatin (CRESTOR) 40 mg tablet Take 1 tablet (40 mg total) by mouth daily 30 tablet 12/11/2022 3 furosemide (LASIX) 20 mg tablet Take 1 tablet (20 mg total) by mouth every third day as needed (if gain more than 2 pounds in a day or 5 pounds in a week) 12 tablet 12/11/2022 3 gabapentin (NEURONTIN) 100 mg capsule Take 1 capsule (100 mg total) by mouth 3 (three) times a day 90 capsule 12/11/2022 4 amiodarone (PACERONE) 200 mg tablet Take 2 tablets (400 mg total) by mouth daily for 30 days, THEN 1 tablet (200 mg total) daily. 30 tablet 12/11/2022 3 metoprolol XL (TOPROL-XL) 50 mg extended release tablet Take 1 tablet (50 mg total) by mouth daily 30 tablet 12/12/2022 3 potassium, sodium phosphates (PHOS-NAK) 280-160-250 mg powder in packet Take 1 packet by mouth 2 (two) times a day before breakfast and dinner 60 packet 12/11/2022 3 documented in this encounter Discharge Disposition Disposition Code Departure Means Destination Comment s Discharge to an Rehab facility [facility] documented in this encounter Progress Notes * Elizabeth Diaz RN - 12/11/2022 4:23 PM CDT 12/04/22 1258 Discharge Summary Discharge Disposition Acute Rehab Specify Facility [facility] Contact Number [phone] / fax: [phone] Facility Attending Name [facility] Attending Contact Number [phone] Discharge Records Transfer Form Completed;Chart Copied Equipment/Provider Needs No Home Needs Identified Discharge Additional Assistance Does the patient need discharge transport arranged? No (car per spouse) Per medical team, patient is medically stable for discharge at this time. [facility]. SHAN spoke with the patient/family, admissions, medical team, and RN regarding discharge planning, and all are agreeable to discharge. Post-acute care transfer packet completed and will be sent with the patient. RN provided with report number to nurses station. Mode of transport has been discussed with the patient/family, MD, nursing staff. All are agreeable to plan and understand their responsibilities to ensure the safe transfer. * Jessica Roy MD - 12/11/2022 8:20 AM CDT Cardiology Firm Daily Progress Note Chief Complaint: Syncope Brief HPI: Ms. Carroll is a 67 F with a-fib on apixaban and sensorineural hearing loss with bilateral cochlear implants who presents with syncope, hypokalemia, metabolic alkalosis. Interval History: Mrs. Carroll denies any chest pain, palpitations, or shortness of breath. She is feeling well this morning and is looking forward to leaving the hospital. NAEO. Afebrile, HDS, remains in NSR w/ occasional PACs and PVCs Electrolytes wnl, KARINA resolved, but again Cr mildly elevated yesterday evening (0.94>1.35>0.99>1.15), leukocytosis uptrending 13.6 (12.4, note 18.9 on admission) Daily EKGs while on amio load appropriate Interval Plan: - Appreciate EP recs - Continue amio po 400 mg TID - Approximate total mgs received prior to 12/11 AM dose = 5460 - 150 bolus x 3 - 1 mg/min drip x ~6 hours - 0.5 mg/min drip x ~48 hours - 400 mg po x 3 doses on 12/08, 12/09, 12/10 - Continue metop XL 50 mg daily - Continue 4u lispro TIDAC + 2u glargine qhs + LDSSI - Dispo: rehab facility, likely today Objective Vital Signs: 24hr Min/Max: Temp Min: 36.4 ??C (97.5 ??F) Max: 36.9 ??C (98.4 ??F) Pulse Min: 73 Max: 86 BP Min: 100/69 Max: 155/78 Resp Min: 18 Max: 20 SpO2 Min: 95 % Max: 100 % Most Recent: Vitals: 12/11/22 0755 BP: 155/78 Pulse: 83 Resp: 19 Temp: SpO2: 98% Intake/Output: Intake/Output Summary (Last 24 hours) at 12/11/2022 0820 Last data filed at 12/11/2022 0400 Gross per 24 hour Intake 0 ml Output 700 ml Net -700 ml Physical Exam: Constitutional: Female appearing stated age in NAD. Eyes: Anicteric, no discharge. ENT: NCAT. Moist mucus membranes. Hard of hearing w/ implants in place. CV: RRR, no m/r/g. 2+ radial pulses b/l. No JVD. Lungs: Non-labored breathing. Clear to auscultation in all lung verde. Trachea midline. GI: Atraumatic. Soft, non-tender, non-distended. Normoactive bowel sounds to auscultation. Skin: No new rashes, lesions or bruises. Extremities: Trace lower extremity edema bilaterally. Neurologic: AOx4, non-focal. Psychiatric: Normal affect and mood. Current Medications: Current Facility-Administered Medications: acetaminophen (TYLENOL) tablet 650 mg, 650 mg, oral, Q4H PRN, 650 mg at 12/11/22 0819 amiodarone (PACERONE) tablet 400 mg, 400 mg, oral, TID, 400 mg at 12/11/2215 apixaban (ELIQUIS) tablet 5 mg, 5 mg, oral, Q12H, 5 mg at 12/11/22814 atorvastatin (LIPITOR) tablet 40 mg, 40 mg, oral, Nightly, 40 mg at 12/10/222052 Carrier Fluids for Secondary Infusion - 0.9% Sodium Chloride, 30 mL, intravenous, PRN Saline lock IV, , , Once AND sodium chloride 0.9% flush 0.5-20 mL, 0.5-20 mL, intra-catheter, Q8H CARROLL, 10 mL at 12/11/22 06 AND sodium chloride 0.9% flush 0.5-20 mL, 0.5-20 mL, intra-catheter, PRN AND Carrier Fluids for Secondary Infusion - 0.9% Sodium Chloride, 30 mL, intravenous, PRN cyclobenzaprine (FLEXERIL) tablet 10 mg, 10 mg, oral, TID PRN, 10 mg at 12/07/222113 dextrose gel in packet 15 g, 15 g, oral, Q15 Min PRN OR dextrose (D10W) 10% bolus 250 mL, 250 mL, intravenous, Q15 Min PRN [Held by Provider] furosemide (LASIX) tablet 20 mg, 20 mg, oral, Daily, 20 mg at 12/09/221410 gabapentin (NEURONTIN) capsule 100 mg, 100 mg, oral, TID, 100 mg at 12/11/22814 glucagon injection 1 mg, 1 mg, intramuscular, Q30 Min PRN imipramine (TOFRANIL) tablet 50 mg, 50 mg, oral, Daily, 50 mg at 12/11/22814 insulin glargine (LANTUS, SEMGLEE) 100 unit/mL injection 2 Units, 2 Units, subcutaneous, Nightly, 2Units at 12/10/222053 insulin lispro (HumaLOG, ADMELOG) 100 unit/mL injection 0-4 Units, 0-4 Units, subcutaneous, Nightly, 1 Units at 12/07/222114 insulin lispro (HumaLOG, ADMELOG) 100 unit/mL injection 0-5 Units, 0-5 Units, subcutaneous, TID with meals, 1 Units at 12/10/221202 insulin lispro (HumaLOG, ADMELOG) 100 unit/mL injection 4 Units, 4 Units, subcutaneous, TID with meals, 4 Units at 12/11/22814 lidocaine (LIDODERM) 5 % patch 2 patch, 2 patch, transdermal, Daily PRN, 2 patch at 12/04/222012 lidocaine (LMX) 4 % cream 1 Application, 1 Application, topical, TID PRN, 1 Application at metoprolol XL (TOPROL-XL) extended release tablet 50 mg, 50 mg, oral, Daily, 50 mg at 12/11/[address] (PROTONIX) extended release tablet 40 mg, 40 mg, oral, Daily, 40 mg at 12/11/22814 polyethylene glycol (MIRALAX) packet 17 g, 17 g, oral, Daily PRN, 17 g at 12/08/222114 potassium, sodium phosphates (PHOS-NAK) 280-160-250 mg packet 1 packet, 1 packet, oral, TID AC, 1 packet at 12/11/22814 ramelteon (ROZEREM) tablet 8 mg, 8 mg, oral, Nightly PRN, 8 mg at 12/10/222052 sodium chloride 0.9% flush 0.5-20 mL, 0.5-20 mL, intra-catheter, Q8H CARROLL, 10 mL at 12/11/22 0613 sodium chloride 0.9% flush 0.5-20 mL, 0.5-20 mL, intra-catheter, PRN Lab/Radiology/Diagnostic Review: Labs: Recent Labs Lab Units 12/10/2236 12/09/22205412/07/220 12/05/22204312/05/22 0408 HEMOGLOBIN g/dL 9.4* 9.6* 10.3* 10.5* 10.4* HEMATOCRIT % 28.0* 29.1* 30.8* 31.0* 31.1* WBC K/cumm 13.6* 12.4* 10.9* 12.3* 12.0* PLATELETS K/cumm 349 358 375 369 358 Recent Labs Lab Units 12/10/22204812/10/2236 12/09/22205412/09/22 0848 12/08/22 2107 SODIUM mmol/L 141 137 141 140 142 POTASSIUM PLASMA mmol/L 4.2 4.0 4.2 4.4 4.3 CHLORIDE mmol/L 103 101 102 102 104 CO2 mmol/L 29 29 31 31 27 ANIONGAP mmol/L 9 7 8 7 11 BUN SERUM mg/dL 13 14 15 13 16 CREATININE mg/dL 1.15* 0.99 1.35* 0.94 1.16* CALCIUM mg/dL 9.8 9.4 9.1 9.6 9.2 MAGNESIUM mg/dL 2.3 1.8 2.0 1.8 2.1 Recent Labs Lab Units 12/05/22 1503 ALBUMIN g/dL 3.0* ALK PHOS Units/L 87 AST Units/L 36 ALT Units/L 18 BILIRUBIN TOTAL mg/dL 0.2 BILIRUBIN DIRECT mg/dL <0.2 Cultures: Lab Results Component Value Date MICROBIOLOGY Final Report: Negative 12/04/2022 MICROBIOLOGY 12/03/2022 Final Report: Less than 100,000 colonies/mL (clinically insignificant growth based on current clinical standards) Assessment/Plan Stella Carroll is a 67 y.o. woman with a history of a-fib on apixaban and sensorineural hearing loss who presented 12/03/22 with 3-4 weeks of syncopal events found to be profoundly hypokalemic with metabolic alkalosis, likely secondary to over-diuresis, also iso polypharmacy and UTI. She was admitted to MICU on 12/03 for severe hypokalemia w/ course c/b Aflutter vs Afib, and transferred to the floor 12/05. #Atrial fibrillation/flutter Was potentially on sotalol 80 mg BID, propranolol 120 mg daily, and diltiazem 120 mg ER daily. QTc over 600 at presentation. Was in sinus rhythm on presentation; around 4am on 12/05, went into likely AFlutter RVR vs Afib (stable BPs); given metop 5 x3 with no response, then given amio 150 IV bolus x2; subsequently HR improved; on telemetry, seemed to convert back to NSR at 5:53am on 12/05; amio drip was started at 1 around 8am on 12/05, and the patient was later transitioned to dilt. 12/06 early AM, patient again went into asymptomatic and HDS AFib w/ RVR unresponsive to metop IV 5 and po dilt, latertransitioned to Aflutter with 2:1, converted to NSR w/ amio bolus and reinitiation of amio drip. Pthas been in NSR since re-initiation of amio drip on 12/06 and transition to po amio on 12/08. - EP consult - 12/08 Converted amio drip to 400mg TID for load - as of 12/11 after first AM dose, 5860 mg - daily EKGs - Metop tartrate 12.5 mg q6 started 12/07 PM, uptitrated 12/08, consolidated to metop XL 50 mg daily 12/09 - Telemetry - Electrolyte repletion as below - Home apixaban 5 BID - Sleep study referral outpatient - General cardiology follow up needed #Hypokalemia, resolved #Hypochloremia, resolved #Metabolic alkalosis, resolved Hypokalemia on presentation to 1.9 with hypochloremia to 75 and metabolic alkalosis. Denies N/V. Suspect etiology is iatrogenic from home diuretics (furosemide, HCTZ). CO2 improved to 29 on 12/07. - Holding diuretics - Trend BMP, Mg, Phos q12 and replete - phos QID --> with meals #Syncope Suspect in setting of profound electrolyte abnormalities, polypharmacy (furosemide, HCTZ, sotalol, propranolol, diltiazem, gabapentin, cyclobenzaprine, alprazolam at home), and UTI. Initial EKG sinusrhythm with prolonged QTc. TSH, trops unremarkable. CTH w/o acute abnormality (note cochlear implants). TTE in the MICU showed trace-mild MR; normal LA; PASP 30s; otherwise unremarkable. Less likely vasovagal, neurogenic. - PT/OT - Orthostatic vitals negative #KARINA Admit creatinine 1.4 from 0.8 on 11/19/22. Improved with IVF. Suspect 2/2 over- diuresis. Pt w/ mild LE swelling 12/09, reinitiated dose-reduced home lasix with Cr bump from 0.94 to 1.35, subsequently improved. 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 Outside TTE 11/19/22: LVEF 60-65%, severe MR with mildly calcified MV annulus, mildly enlarged LA, mild TR, PASP 45. Repeat TTE in house showed trace-mild MR; normal LA; PASP 30s; otherwise unremarkable. - holding diuresis in the setting of euvolemia - 20 po lasix on 12/09 due to LE swelling--> Cr bump; hold #Leukocytosis #UTI, resolved ED UA with 2+ LE, pyuria, suprapubic pain and dysuria and WBC 18.9. Was started on CTX, but subsequently UCx had insufficient growth. Leukocytosis improved with treatment, then returned. Note - CXR on admission w/ no consolidation. - Completed abx course of CTX given symptoms and leukocytosis #DM2 Last A1c 12/04/2022: Hgb A1C 7.3. No home reg. - Carb-consistent diet, accuchecks, scheduled + SSI, hypoglycemia protocol #Constipation, resolved Suspect in setting of electrolyte abnormalities and poor PO intake. Pt had a BM on 12/04 evening, nowhaving regular BMs. - Miralax daily PRN #HLD -home simvastatin 80 switched to atorva 40 daily in the setting of drug-drug interactions with diltiazem #GERD -home PPI #Mood disorder, NOS -home imipramine 50 mg daily #Post-herpetic neuralgia Had shingles 6 weeks ago treated with Valtrex. - Gabapentin 100 TID - Acetaminophen PRN, lidocaine patches PRN DVT ppx: AC as above Diet: Carb control Dispo: Pt recommended inpatient rehab, pt agreeable; can discharge today Jessica Roy MD, MPH Internal Medicine PGY-1 12/11/22 Cosigned by Zia Mendoza MD at 12/11/2022 5:55 PM CDT Associated attestation - Zia Mendoza MD - 12/11/2022 5:55 PM CDT The resident/fellow saw and examined the patient, we discussed their findings, and I am in agreement with the plan based on the discussion with the resident/fellow. I did not personally examine the patient. * Jena Guerra, OT - 12/10/2022 2:07 PM CDT Occupational Therapy Occupational Therapy Progress Note NOTE: This is a summary note of the [place] components of the treatment session. For full details, review chart for all flowsheets documented on by this occupational therapy clinician on this date. Vitalsigns documented in vital signs flowsheet. Care plan progress documented in Care Plan Activity. For questions, please review the treatment team and contact the occupational therapist currently assigned to this patient. If an occupational therapist is not assigned to this patient, please call [phone]. 12/10/22 7241 General Session Type Treatment OT Received On 12/10/22 Safe Environment Arm band checked;Patient found sitting in chair;Gait belt utilized for all out of bed mobility Subjective Agreeable to Therapy Precautions Precautions Fall risk Precaution Comments PPE worn by OT: gloves Pain Assessment Pain Assessment 0-10 Balance Balance Yes Static Sitting Balance Static Sitting-Balance Support No upper extremity supported;Feet supported Static Sitting-Sitting Surface Chair Static Sitting-Level of Assistance Distant supervision Static Sitting-Comment/# of Minutes safety Dynamic Sitting Balance Dynamic Sitting-Balance Support No upper extremity supported;Feet supported Dynamic Sitting-Balance Lateral lean;Forward lean;Reaching for objects Dynamic Sitting-Sitting Surface Chair Dynamic Sitting-Level of Assistance Close supervision Dynamic Sitting-Comments safety Static Standing Balance Static Standing-Balance Support No upper extremity supported Static Standing-Standing Surface Floor Static Standing-Level of Assistance Contact guard Static Standing-Comment/# of Minutes safety Dynamic Standing Balance Dynamic Standing-Balance Support Unilateral upper extremity supported Dynamic Standing-Balance Lateral lean;Forward lean;Reaching for objects Dynamic Standing-Standing Surface Floor Dynamic Standing-Level of Assistance Minimum assistance Dynamic Standing-Comments MIN A for balance/safety ADL ADLS (WDL) X Grooming Grooming: Where assessed Standing at sink Grooming: Level of assistance Contact Guard Assist (set up task; CGA balance) Grooming: Assistance with Increased time to complete;Safety;Other (Comment) (balance) Toileting Toileting: Where assessed Toilet Toileting: Level of assistance Minimum Assist (IND task; MIN A balance) Toileting: Assistance with Increased time to complete;Other (Comment) (balance) Bed Mobility Bed Mobility No Transfers Transfer Yes Transfer 1 Transfer From 1 Sit Transfer Type 1 To and from Transfer to 1 Stand Technique 1 Sit to stand;Stand to sit Transfer Device 1 No device Transfer Level of Assistance 1 Minimum Assist Trials/Comments 1 MIN A for force production and balance/safety Transfers 2 Trials/Comments 2 functional mobility: MIN A Toilet Transfers Toilet Transfer From Other (Comment) (chair) Toilet Transfer Type To and from Toilet Transfer to Standard toilet Toilet Transfer Technique Ambulating Toilet Transfer: Equipment No device Toilet Transfers Minimal assistance Toilet Transfers Comments MIN A for steadying Cognition Arousal/Alertness Alert Attention Span Appears intact Memory Appears intact Current communication Appears Intact Orientation Oriented X4 (person, place, time, situation) Following Commands Follows all commands and directions without difficulty Safety Judgment Good awareness of safety precautions Awareness of Errors Good awareness of errors made Insight Fully aware of deficits Problem Solving Able to problem solve independently Compliance/Behavior Easy to engage Perseveration Not present Activity Tolerance Activity Tolerance Comments YOVANI: medium Other Comments Comments pt requires MIN A hand hold and furniture surfing duriung functional mobility Daily Activity - 6 Clicks Putting on and taking off regular lower body clothing 3 Bathing 3 Toileting 3 Putting on and taking off upper body clothing 3 Personal Grooming 3 Eating Meals 3 Total Score (range 6-24) 18 Score Interpretation 38.66 Safe Environment End of Therapy Session Safe Environment End of Therapy Session Patient left in recliner;RN notified;Overbed table within reach;Call light within reach Assessment Problem List Decreased safe judgment during ADL;Decreased endurance;Decreased balance;Decreased functional mobility;Decreased ADL independence;Decreased IADL independence Barriers to Discharge Current Mobility Status Barrier Comments fall risk Plan Plan Alter current plan;If this is the last note, consider this the discharge summary Recommendation/Plan OT Recommendation Inpatient Rehab Facility Patient at high risk for Falls;Readmission;Injury due to decreased ability to care for self;Injury due to reduced functional status;Injury due to impaired cognition;Injury at home as patient has not returned to prior level of function;Injury due to balance deficits Recommend Inpatient Rehab/Acute Rehab due to Ability to actively participate in intensive therapy 3hours/day, 5 days/week or 900 minutes per week;Highly motivated to participate in therapy;Not at baseline due to impaired ability to complete ADLs;Impaired ability to complete functional mobility;Likely to return to the community at discharge with support system in place;Requires greater than 25% physical assistance with most mobility tasks;Requires greater than 25% physical assistance with most ADL tasks OT Frequency during current admission 3-5x/wk Treatment/Interventions during current admission ADL/IADL retraining;Balance Training;Bed mobility;Endurance training;Functional activity;Functional mobility training;Functional transfer training;Range of motion;State control;Strengthening;Therapeutic activity;Therapeutic exercise;Transfer training Progress during current admission Progressing toward goals OT - Next Appointment 12/12/22 Multi-Disciplinary Problems (from Occupational Therapy) Active Problems Problem: Dressings Lower Extremities Start Date: 12/07/22 Goal Start Date Expected End Date End Date STG - Patient to complete lower body dressing 12/07/22 12/14/22 -- Goal Details: With SPV Problem: Grooming Start Date: 12/07/22 Goal Start Date Expected End Date End Date STG - Patient will complete grooming 12/07/22 12/14/22 -- Goal Details: With SPV at the sink Problem: Toileting Start Date: 12/07/22 Goal Start Date Expected End Date End Date STG - Patient will complete toileting tasks with 12/07/22 12/14/22 -- Goal Details: With SPV Problem: Transfers Start Date: 12/07/22 Goal Start Date Expected End Date End Date STG - Patient will perform toilet transfer 12/07/22 12/14/22 -- Goal Details: With SPV to standard toilet Reviewed By Renetta Mahan RN 12/07/22 0749 Renetta Mahan RN 12/06/22 1240 Tammi Ramesh RN 12/04/22 1300 * Matt Herbert, PT - 12/10/2022 1:12 PM CDT Physical Therapy Physical Therapy Progress Note NOTE: This is a summary note of the [place] components of the treatment session. For full details, review chart for all flowsheets documented on by this physical therapy clinician on this date. Vital signs documented in vital signs flowsheet. Care plan progress documented in Care Plan Activity. For questions, please review the treatment team and contact the PT or ELECTRONICS INSTALLER currently assigned to this patient. If a physical therapy clinician is not assigned to this patient, please call [phone]. 12/10/22 1312 PT Last Visit Session Type Treatment PT Received On 12/10/22 Safe Environment Arm band checked;Patient found in supine;Session completed bedside;Gait belt utilized for all out of bed mobility Subjective Agreeable to Therapy Family/Caregiver Present No Precautions Precautions Hearing;Fall risk Activity Tolerance Activity Tolerance Comments yovani - fairly hard Pain Assessment Pain Assessment 0-10 Pain Score 7 Pain Location Abdomen Pain Interventions RN Notified Cognition Arousal/Alertness Appropriate responses to stimuli;Alert Orientation Oriented X4 (person, place, time, situation) Following Commands Follows all commands and directions without difficulty Balance Balance Yes Static Sitting Balance Static Sitting-Balance Support Feet supported;Bilateral upper extremity supported Static Sitting-Sitting Surface Bed Static Sitting-Level of Assistance Distant supervision Static Sitting-Comment/# of Minutes safety Static Standing Balance Static Standing-Balance Support Bilateral upper extremity supported (WW) Static Standing-Standing Surface Floor Static Standing-Level of Assistance Close supervision Static Standing-Comment/# of Minutes safety and balance Bed Mobility Bed Mobility Yes Bed Mobility 1 Bed Mobility From 1 Supine Bed Mobility Type 1 To Bed Mobility to 1 Edge of bed Level of Assistance 1 Standby Assist Bed Mobility Comments 1 HOB elevated Transfers Transfer Yes Transfer 1 Transfer From 1 Sit Transfer Type 1 To and from Transfer to 1 Stand Technique 1 Stand to sit;Sit to stand Transfer Device 1 No device Transfer Level of Assistance 1 Contact Guard Assist Trials/Comments 1 6 reps, CGA for safety and balance Ambulation Ambulation Yes Ambulation 1 Distance (ft) 1 200 Surface 1 Level tile Device 1 Wheeled walker Assistance 1 Contact Guard Assist Gait: Requires assist with 1 Maintaining balance Gait: Requires verbal cues to 1 Improve upright posture;Increase step length;Increase base of support Gait Deviations 1 Base of support - decreased;Tamara - decreased;Heel strike - decreased;Step length - decreased;Posture - flexed Ambulation 2 Distance (ft) 2 30 Surface 2 Level tile Device 2 No device Assistance 2 Minimum Assist Gait: Requires assist with 2 Maintaining balance Gait: Requires verbal cues to 2 Improve upright posture;Increase step length;Increase base of support;Pace activity Gait Deviations 2 Base of support - decreased;Tamara - decreased;Heel strike - decreased;Posture -flexed;Step length - decreased Quality of Gait 2 small, shuffle steps, lateral sway Basic Mobility - 6 Click How much difficulty does the patient have: Turning over in bed 3 How much difficulty does the patient currently have: Sitting down and standing up from a chair witharms? 3 How much difficulty does the patient have: Moving from lying on back to sitting on the side of the bed? 3 How much difficulty does the patient have: Moving to and from a bed to a chair including wheelchair? 3 How much help does the patient currently need: Walk in hospital room? 3 How much help from another person does the patient currently need: Climbing 3-5 steps with a railing? 3 Total 6 Click Score (range 6-24) 18 Score Interpretation 41.05 Safe Environment End of Therapy Session Safe Environment End of Therapy Session Patient left in chair;RN notified;Overbed table within reach;Call light within reach Assessment Prognosis Good Problem List Gait deviations;Decreased range of motion;Decreased strength;Decreased endurance;Impaired balance;Decreased mobility Plan Plan Continue with current plan;If this is the last note, consider this the discharge summary Recommendation/Plan PT Recommendation/Plan Inpatient Rehab Facility Patient at high risk for Falls;Readmission;Injury due to balance deficits;Injury at home as patienthas not returned to prior level of function Recommend Inpatient Rehab/Acute Rehab due to Ability to actively participate in intensive therapy 3hours/day, 5 days/week or 900 minutes per week;Likely to return to the community at discharge with support system in place;Requires greater than 25% physical assistance with most mobility tasks;Requires greater than 25% physical assistance with most ADL tasks;Impaired ability to complete functionalmobility PT Frequency during current admission 3-5x/wk Treatment/Interventions during current admission Balance Training;Bed mobility;Gait training;Functional transfer training;Functional activity;Positioning;Stair training;Strengthening;Therapeutic activ ity;Therapeutic exercise;Transfer training PT Equipment Recommended None PT - Next Appointment 12/12/22 Multi-Disciplinary Problems (from Physical Therapy) Active Problems Problem: Mobility Start Date: 12/05/22 Goal Start Date Expected End Date End Date STG - Patient will ambulate 12/05/22 12/15/22 -- Goal Details: 300' Least restrictive device Standby assistance Goal Start Date Expected End Date End Date STG - Patient will ascend and descend 2 stairs with the following level of assist: 12/05/22 12/15/22 -- Goal Details: Standby assistance Problem: Transfers Start Date: 12/05/22 Goal Start Date Expected End Date End Date STG - Transfer from bed to chair 12/05/22 12/15/22 -- Goal Details: Standby assistance a Goal Start Date Expected End Date End Date STG - Patient to transfer to and from sit to supine 12/05/22 12/15/22 -- Goal Details: Modified independence Goal Start Date Expected End Date End Date STG - Patient will transfer sit to and from stand 12/05/22 12/15/22 -- Goal Details: Standby assistance Reviewed By Renetta Mahan, GLADYS 12/07/22 0749 Renetta Mahan RN 12/06/22 1240 Tammi Ramesh RN 12/04/22 1300 * Jessica Roy MD - 12/10/2022 8:04 AM CDT Cardiology Firm Daily Progress Note Chief Complaint: Syncope Brief HPI: Ms. Carroll is a 67 F with a-fib on apixaban, MVR, sensorineural hearing loss with bilateral cochlearimplants who presents with syncope, hypokalemia, metabolic alkalosis. Interval History: Mrs. Carroll denies any chest pain, palpitations, or shortness of breath. She felt a little nauseous this morning but reports it has resolved and that she was able to eat her oatmeal. She feels like her LE swelling has mildly improved. NAEO. Afebrile, HDS, remains in NSR after switching from amio gtt to po amio on 12/08 and is tolerating consolidation of metop Electrolytes wnl, KARINA w/ CR bump from 0.94 to 1.35 (did restart home po lasix at half dose 20 yesterday) BGs improved with scheduled insulin Interval Plan: - Hold lasix - Recheck BMP - Appreciate EP recs - Continue amio po 400 mg TID for a load of 8 g - Approximate total mgs received prior to 5/7 AM dose = 3060 mg - 150 bolus x 3 - 1 mg/min drip x ~6 hours - 0.5 mg/min drip x ~48 hours - 400 mg po x 3 doses on 12/08 - Continue metop XL 50 mg daily - Continue 4u lispro TIDAC + 2u glargine qhs + LDSSI - Dispo: rehab facility after additional amio load and cleared by EP Objective Vital Signs: 24hr Min/Max: Temp Min: 36.4 ??C (97.6 ??F) Max: 37.1 ??C (98.8 ??F) Pulse Min: 76 Max: 85 BP Min: 126/65 Max: 152/72 Resp Min: 18 Max: 18 SpO2 Min: 93 % Max: 97 % Most Recent: Vitals: 12/10/22 0442 BP: 140/72 Pulse: 77 Resp: 18 Temp: 36.9 ??C (98.4 ??F) SpO2: 95% Intake/Output: Intake/Output Summary (Last 24 hours) at 12/10/2022 0804 Last data filed at 12/10/2022 0400 Gross per 24 hour Intake 950 ml Output 2400 ml Net -1450 ml Physical Exam: Constitutional: Female appearing stated age in NAD. Eyes: PERRL, EOMI, anicteric. ENT: NCAT. Moist mucus membranes. Hard of hearing w/ implants in place. CV: RRR, no m/r/g. 2+ radial pulses b/l. No JVD. Lungs: Non-labored breathing. Clear to auscultation in all lung verde. Trachea midline. GI: Atraumatic. Soft, non-tender, non-distended. Normoactive bowel sounds to auscultation. Skin: No new rashes, lesions or bruises. Extremities: Trace lower extremity edema bilaterally, improved. Neurologic: AOx4, non-focal. Psychiatric: Normal affect and mood. Current Medications: Current Facility-Administered Medications: acetaminophen (TYLENOL) tablet 650 mg, 650 mg, oral, Q4H PRN, 650 mg at 12/09/222334 amiodarone (PACERONE) tablet 400 mg, 400 mg, oral, TID, 400 mg at 12/09/222055 apixaban (ELIQUIS) tablet 5 mg, 5 mg, oral, Q12H, 5 mg at 12/09/222055 atorvastatin (LIPITOR) tablet 40 mg, 40 mg, oral, Nightly, 40 mg at 12/09/222055 Carrier Fluids for Secondary Infusion - 0.9% Sodium Chloride, 30 mL, intravenous, PRN Saline lock IV, , , Once AND sodium chloride 0.9% flush 0.5-20 mL, 0.5-20 mL, intra-catheter, Q8H CARROLL, 10 mL at 12/09/222056 AND sodium chloride 0.9% flush 0.5-20 mL, 0.5-20 mL, intra-catheter, PRN AND Carrier Fluids for Secondary Infusion - 0.9% Sodium Chloride, 30 mL, intravenous, PRN cyclobenzaprine (FLEXERIL) tablet 10 mg, 10 mg, oral, TID PRN, 10 mg at 12/07/222113 dextrose gel in packet 15 g, 15 g, oral, Q15 Min PRN OR dextrose (D10W) 10% bolus 250 mL, 250 mL, intravenous, Q15 Min PRN furosemide (LASIX) tablet 20 mg, 20 mg, oral, Daily, 20 mg at 12/09/22 1411 gabapentin (NEURONTIN) capsule 100 mg, 100 mg, oral, TID, 100 mg at 12/09/222055 glucagon injection 1 mg, 1 mg, intramuscular, Q30 Min PRN imipramine (TOFRANIL) tablet 50 mg, 50 mg, oral, Daily, 50 mg at 12/09/22839 insulin glargine (LANTUS, SEMGLEE) 100 unit/mL injection 2 Units, 2 Units, subcutaneous, Nightly, 2Units at 12/09/222056 insulin lispro (HumaLOG, ADMELOG) 100 unit/mL injection 0-4 Units, 0-4 Units, subcutaneous, Nightly, 1 Units at 12/07/222114 insulin lispro (HumaLOG, ADMELOG) 100 unit/mL injection 0-5 Units, 0-5 Units, subcutaneous, TID with meals, 1 Units at 12/09/221248 insulin lispro (HumaLOG, ADMELOG) 100 unit/mL injection 4 Units, 4 Units, subcutaneous, TID with meals, 4 Units at 12/09/221755 lidocaine (LIDODERM) 5 % patch 2 patch, 2 patch, transdermal, Daily PRN, 2 patch at 12/04/222012 lidocaine (LMX) 4 % cream 1 Application, 1 Application, topical, TID PRN, 1 Application at metoprolol XL (TOPROL-XL) extended release tablet 50 mg, 50 mg, oral, Daily, 50 mg at 12/09/[address] (PROTONIX) extended release tablet 40 mg, 40 mg, oral, Daily, 40 mg at 12/09/22839 polyethylene glycol (MIRALAX) packet 17 g, 17 g, oral, Daily PRN, 17 g at 12/08/222114 potassium, sodium phosphates (PHOS-NAK) 280-160-250 mg packet 1 packet, 1 packet, oral, TID AC, 1 packet at 12/09/221713 ramelteon (ROZEREM) tablet 8 mg, 8 mg, oral, Nightly PRN, 8 mg at 12/09/222056 sodium chloride 0.9% flush 0.5-20 mL, 0.5-20 mL, intra-catheter, Q8H CARROLL, 10 mL at 12/09/222057 sodium chloride 0.9% flush 0.5-20 mL, 0.5-20 mL, intra-catheter, PRN Lab/Radiology/Diagnostic Review: Labs: Recent Labs Lab Units 12/09/22205412/07/22210912/05/22 20412/05/22 0408 12/04/22 0604 HEMOGLOBIN g/dL 9.6* 10.3* 10.5* 10.4* 11.5* HEMATOCRIT % 29.1* 30.8* 31.0* 31.1* 33.5* WBC K/cumm 12.4* 10.9* 12.3* 12.0* 13.2* PLATELETS K/cumm 358 375 369 358 411* Recent Labs Lab Units 12/09/22205412/09/22 0848 12/08/22210612/08/22 0908 12/08/22 0042 SODIUM mmol/L 141 140 142 145 140 POTASSIUM PLASMA mmol/L 4.2 4.4 4.3 3.9 3.8 CHLORIDE mmol/L 102 102 104 104 101 CO2 mmol/L 31 31 27 30 33* ANIONGAP mmol/L 8 7 11 11 6 BUN SERUM mg/dL 15 13 16 13 16 CREATININE mg/dL 1.35* 0.94 1.16* 0.91 0.96 CALCIUM mg/dL 9.1 9.6 9.2 9.2 9.0 MAGNESIUM mg/dL 2.0 1.8 2.1 3.1* 1.8 Recent Labs Lab Units 12/05/22 1503 ALBUMIN g/dL 3.0* ALK PHOS Units/L 87 AST Units/L 36 ALT Units/L 18 BILIRUBIN TOTAL mg/dL 0.2 BILIRUBIN DIRECT mg/dL <0.2 Recent Labs Lab Units 12/03/22 1910 TSH mcIUnit/mL 0.90 Cultures: Lab Results Component Value Date MICROBIOLOGY Final Report: Negative 12/04/2022 MICROBIOLOGY 12/03/2022 Final Report: Less than 100,000 colonies/mL (clinically insignificant growth based on current clinical standards) Tele NSR w/ rates in high 70s and 80s Assessment/Plan Stella Carroll is a 67 y.o. woman with a history of a-fib on apixaban, MVR, sensorineural hearing losswho presented 12/03/22 with 3-4 weeks of syncopal events found to be profoundly hypokalemic with metabolic alkalosis, likely secondary to over-diuresis. She was admitted to MICU on 12/03 for severe hypokalemia and transferred to the floor 12/05. #Atrial fibrillation/flutter Was potentially on sotalol 80 mg BID, propranolol 120 mg daily, and diltiazem 120 mg ER daily. QTc over 600 at presentation. Was in sinus rhythm on presentation; around 4am on 12/05, went into likely AFlutter RVR vs Afib (stable BPs); given metop 5 x3 with no response, then given amio 150 IV bolus x2; subsequently HR improved; on telemetry, seemed to convert back to NSR at 5:53am on 12/05; amio drip was started at 1 around 8am on 12/05, and the patient was later transitioned to dilt. 12/06 early AM, patient again went into asymptomatic and HDS AFib w/ RVR unresponsive to metop IV 5 and po dilt, latertransitioned to Aflutter with 2:1, converted to NSR w/ amio bolus and reinitiation of amio drip. Pthas been in NSR since re-initiation of amio drip on 12/06. - S/p EP consult - 12/08 Converted amio drip to 400mg TID for load to 8g - Metop tartrate 12.5 mg q6 started 12/07 PM, uptitrated 12/08, consolidated to metop XL 50 mg daily 12/09 - Telemetry - Electrolyte repletion as below - Home apixaban 5 BID - Sleep study referral outpatient - General cardiology follow up needed #Hypokalemia, resolved #Hypochloremia, resolved #Metabolic alkalosis, resolved Hypokalemia on presentation to 1.9 with hypochloremia to 75 and metabolic alkalosis. Denies N/V. Suspect etiology is iatrogenic from home diuretics (furosemide, HCTZ). CO2 improved to 29 on 12/07. - Holding diuretics - Trend BMP, Mg, Phos q12 and replete - phos QID --> with meals #Syncope Suspect in setting of profound electrolyte abnormalities, polypharmacy (furosemide, HCTZ, sotalol, propranolol, diltiazem, gabapentin, cyclobenzaprine, alprazolam at home), and UTI. Initial EKG sinusrhythm with prolonged QTc. TSH, trops unremarkable. TTE in the MICU showed trace-mild MR; normal LA; PASP 30s; otherwise unremarkable. Less likely vasovagal, neurogenic. - PT/OT - Orthostatic vitals negative #KARINA Admit creatinine 1.4 from 0.8 on 11/19/22. Improved with IVF. Suspect 2/2 over- diuresis. Pt w/ mild LE swelling 12/09, reinitiated dose-reduced home lasix with Cr bump from 0.94 to 1.35. 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 Outside TTE 11/19/22: LVEF 60-65%, severe MR with mildly calcified MV annulus, mildly enlarged LA, mild TR, PASP 45. Repeat TTE in house showed trace-mild MR; normal LA; PASP 30s; otherwise unremarkable. - holding diuresis in the setting of euvolemia - 20 po lasix on 12/09 due to LE swelling--> Cr bump; hold #UTI, resolved ED UA with 2+ LE, pyuria, suprapubic pain and dysuria. Was started on CTX, but subsequently UCx hadinsufficient growth. - Completed abx course of CTX given symptoms and leukocytosis #DM2 Last A1c 12/04/2022: Hgb A1C 7.3. Unclear if on any regimen at home. - Carb-consistent diet, accuchecks, scheduled + SSI, hypoglycemia protocol #Constipation, resolved Suspect in setting of electrolyte abnormalities and poor PO intake. Pt had a BM on 12/04 evening, nowhaving regular BMs. - Miralax daily PRN #HLD -home simvastatin 80 switched to atorva 40 daily in the setting of drug-drug interactions with diltiazem #GERD -home PPI #Mood disorder, NOS -home imipramine 50 mg daily #Post-herpetic neuralgia Had shingles 6 weeks ago treated with Valtrex. - Gabapentin 100 TID - Acetaminophen PRN, lidocaine patches PRN DVT ppx: AC as above Diet: Carb control Dispo: Pt recommended inpatient rehab, pt agreeable Jessica Roy MD, MPH Internal Medicine PGY-1 12/10/22 Cosigned by Zia Mendoza MD at 12/10/2022 5:57 PM CDT Associated attestation - Zia Mendoza MD - 12/10/2022 5:57 PM CDT Attending Documentation I have seen and examined the patient on 12/10/22. I agree with the findings and plan of care as documented in the resident's/fellow's note. and as discussed with the resident/fellow. Supplementary Attestation The total encounter time on this service date was 20 minutes which was spent performing a cuzr-bz-auvo encounter and personally completing the provider-level activities documented in the note. This includes time spent prior to the visit and after the visit in direct care of the patient. This time does not include time spent in any separately reportable services. Zia Mendoza MD * Jessica Roy MD - 12/09/2022 7:49 AM CDT Images from the original note were not included. [facility] Daily Progress Note Chief Complaint: Syncope Brief HPI: Ms. Carroll is a 67 F with a-fib on apixaban, MVR, sensorineural hearing loss with bilateral cochlearimplants who presents with syncope, hypokalemia, metabolic alkalosis. Interval History: Mrs. Carroll has no complaints this morning beyond feeling like her legs are a little swollen. NAEO. Afebrile, HDS, remains in NSR after switching from amio gtt to po amio and is tolerating consolidation of metop (see objective for tele screenshot) Electrolytes wnl, Cr bump from 0.91 to 1.16 (pt has not been on diuresis during admission) BGs improved with scheduled insulin Interval Plan: - Appreciate EP recs - Continue amio po 400 mg TID for a load of 8 g - Approximate total mgs received prior to 5/7 AM dose = 3060 mg - 150 bolus x 3 - 1 mg/min drip x ~6 hours - 0.5 mg/min drip x ~48 hours - 400 mg po x 3 doses on 12/08 - Consolidate metop today to XL 50 mg daily - Continue 4u lispro TIDAC + 2u glargine qhs + LDSSI Objective Vital Signs: 24hr Min/Max: Temp Min: 13 ??C (55.4 ??F) Max: 37.1 ??C (98.8 ??F) Pulse Min: 75 Max: 86 BP Min: 131/74 Max: 155/84 Resp Min: 18 Max: 20 SpO2 Min: 94 % Max: 97 % Most Recent: Vitals: 12/09/22 0045 BP: 135/62 Pulse: 75 Resp: 20 Temp: 37.1 ??C (98.8 ??F) SpO2: 94% Intake/Output: Intake/Output Summary (Last 24 hours) at 12/09/2022 0749 Last data filed at 12/09/2022 0400 Gross per 24 hour Intake 840 ml Output 1050 ml Net -210 ml Physical Exam: Constitutional: Female appearing stated age in NAD. Eyes: PERRL, EOMI, anicteric. ENT: NCAT. Moist mucus membranes. Hard of hearing w/ implants in place. CV: RRR, no m/r/g. 2+ radial pulses b/l. No JVD. Lungs: Non-labored breathing. Clear to auscultation in all lung verde. Trachea midline. GI: Atraumatic. Soft, non-tender, non-distended. Normoactive bowel sounds to auscultation. Skin: No new rashes, lesions or bruises. Extremities: Trace lower extremity edema bilaterally. Neurologic: AOx4, non-focal. Psychiatric: Normal affect and mood. Current Medications: Current Facility-Administered Medications: acetaminophen (TYLENOL) tablet 650 mg, 650 mg, oral, Q4H PRN, 650 mg at 12/08/222107 amiodarone (PACERONE) tablet 400 mg, 400 mg, oral, TID, 400 mg at 12/08/222107 apixaban (ELIQUIS) tablet 5 mg, 5 mg, oral, Q12H, 5 mg at 12/08/222107 atorvastatin (LIPITOR) tablet 40 mg, 40 mg, oral, Nightly, 40 mg at 12/08/222107 Carrier Fluids for Secondary Infusion - 0.9% Sodium Chloride, 30 mL, intravenous, PRN Saline lock IV, , , Once AND sodium chloride 0.9% flush 0.5-20 mL, 0.5-20 mL, intra-catheter, Q8H CARROLL, 10 mL at 12/08/222122 AND sodium chloride 0.9% flush 0.5-20 mL, 0.5-20 mL, intra-catheter, PRN AND Carrier Fluids for Secondary Infusion - 0.9% Sodium Chloride, 30 mL, intravenous, PRN cyclobenzaprine (FLEXERIL) tablet 10 mg, 10 mg, oral, TID PRN, 10 mg at 12/07/222113 dextrose gel in packet 15 g, 15 g, oral, Q15 Min PRN OR dextrose (D10W) 10% bolus 250 mL, 250 mL, intravenous, Q15 Min PRN gabapentin (NEURONTIN) capsule 100 mg, 100 mg, oral, TID, 100 mg at 12/08/222107 glucagon injection 1 mg, 1 mg, intramuscular, Q30 Min PRN imipramine (TOFRANIL) tablet 50 mg, 50 mg, oral, Daily, 50 mg at 12/08/2249 insulin glargine (LANTUS, SEMGLEE) 100 unit/mL injection 2 Units, 2 Units, subcutaneous, Nightly, 2Units at 12/08/222107 insulin lispro (HumaLOG, ADMELOG) 100 unit/mL injection 0-4 Units, 0-4 Units, subcutaneous, Nightly, 1 Units at 12/07/222114 insulin lispro (HumaLOG, ADMELOG) 100 unit/mL injection 0-5 Units, 0-5 Units, subcutaneous, TID with meals, 1 Units at 12/08/22 174 insulin lispro (HumaLOG, ADMELOG) 100 unit/mL injection 4 Units, 4 Units, subcutaneous, TID with meals, 4 Units at 12/08/22 174 lidocaine (LIDODERM) 5 % patch 2 patch, 2 patch, transdermal, Daily PRN, 2 patch at 12/04/222012 lidocaine (LMX) 4 % cream 1 Application, 1 Application, topical, TID PRN, 1 Application at 117 metoprolol XL (TOPROL-XL) extended release tablet 50 mg, 50 mg, oral, Daily pantoprazole DR (PROTONIX) extended release tablet 40 mg, 40 mg, oral, Daily, 40 mg at 12/08/22 0850 polyethylene glycol (MIRALAX) packet 17 g, 17 g, oral, Daily PRN, 17 g at 12/08/222114 potassium, sodium phosphates (PHOS-NAK) 280-160-250 mg packet 1 packet, 1 packet, oral, QID (AC & HS), 1 packet at 12/08/222107 sodium chloride 0.9% flush 0.5-20 mL, 0.5-20 mL, intra-catheter, Q8H CARROLL, 10 mL at 12/08/222122 sodium chloride 0.9% flush 0.5-20 mL, 0.5-20 mL, intra-catheter, PRN Lab/Radiology/Diagnostic Review: Labs: Recent Labs Lab Units 12/07/22210912/05/22 2044 12/05/22 0408 12/04/22 0604 12/03/22 1910 HEMOGLOBIN g/dL 10.3* 10.5* 10.4* 11.5* 14.4 HEMATOCRIT % 30.8* 31.0* 31.1* 33.5* 40.0 WBC K/cumm 10.9* 12.3* 12.0* 13.2* 18.9* PLATELETS K/cumm 375 369 358 411* 490* Recent Labs Lab Units 12/08/227 12/08/22 0908 12/08/22 0042 12/07/220 12/07/22 1055 SODIUM mmol/L 142 145 140 142 140 POTASSIUM PLASMA mmol/L 4.3 3.9 3.8 4.0 See Comment CHLORIDE mmol/L 104 104 101 102 101 CO2 mmol/L 27 30 33* 32 29 ANIONGAP mmol/L 11 11 6 8 10 BUN SERUM mg/dL 16 13 16 17 13 CREATININE mg/dL 1.16* 0.91 0.96 0.99 0.93 CALCIUM mg/dL 9.2 9.2 9.0 9.2 9.1 MAGNESIUM mg/dL 2.1 3.1* 1.8 1.8 2.1 Recent Labs Lab Units 12/05/22 1503 ALBUMIN g/dL 3.0* ALK PHOS Units/L 87 AST Units/L 36 ALT Units/L 18 BILIRUBIN TOTAL mg/dL 0.2 BILIRUBIN DIRECT mg/dL <0.2 Recent Labs Lab Units 12/03/22 1910 TSH mcIUnit/mL 0.90 Cultures: Lab Results Component Value Date MICROBIOLOGY Final Report: Negative 12/04/2022 MICROBIOLOGY 12/03/2022 Final Report: Less than 100,000 colonies/mL (clinically insignificant growth based on current clinical standards) Tele Assessment/Plan Stella Carroll is a 67 y.o. woman with a history of a-fib on apixaban, MVR, sensorineural hearing losswho presented 12/03/22 with 3-4 weeks of syncopal events found to be profoundly hypokalemic with metabolic alkalosis, likely secondary to over-diuresis. She was admitted to MICU on 12/03 for severe hypokalemia. #Atrial fibrillation/flutter Was potentially on sotalol 80 mg BID, propranolol 120 mg daily, and diltiazem 120 mg ER daily. QTc over 600 at presentation. Was in sinus rhythm on presentation; around 4am on 12/05, went into likely AFlutter RVR vs Afib (stable BPs); given metop 5 x3 with no response, then given amio 150 IV bolus x2; subsequently HR improved; on telemetry, seemed to convert back to NSR at 5:53am on 12/05; amio drip was started at 1 around 8am on 12/05, and the patient was later transitioned to dilt. 12/06 early AM, patient again went into asymptomatic and HDS AFib w/ RVR unresponsive to metop IV 5 and po dilt, latertransitioned to Aflutter with 2:1, converted to NSR w/ amio bolus and reinitiation of amio drip. Pthas been in NSR since re-initiation of amio drip on 12/06. - S/p EP consult - 12/08 Converted amio drip to 400mg TID for load to 8g - Metop tartrate 12.5 mg q6 started 5/ PM, uptitrated 12/08, consolidated to metop XL 50 mg daily 12/09 - Telemetry - Electrolyte repletion as below - Home apixaban 5 BID - Sleep study referral outpatient - General cardiology follow up needed #Hypokalemia, resolved #Hypochloremia, resolved #Metabolic alkalosis, resolved Hypokalemia on presentation to 1.9 with hypochloremia to 75 and metabolic alkalosis. Denies N/V. Suspect etiology is iatrogenic from home diuretics (furosemide, HCTZ). CO2 improved to 29 on 12/07. - Holding diuretics - Trend BMP, Mg, Phos q12 and replete - phos QID #Syncope Suspect in setting of profound electrolyte abnormalities, polypharmacy (furosemide, HCTZ, sotalol, propranolol, diltiazem, gabapentin, cyclobenzaprine, alprazolam at home), and UTI. Initial EKG sinusrhythm with prolonged QTc. TSH, trops unremarkable. TTE in the MICU showed trade-mild MR; normal LA; PASP 30s; otherwise unremarkable. Less likely vasovagal, neurogenic. - PT/OT - Orthostatic vitals when able #Mild mitral regurgitation [employer], was on home furosemide 40 mg BID and HCTZ 25 mg daily. Outside TTE 11/19/22: LVEF 60-65%, severe MR with mildly calcified MV annulus, mildly enlarged LA, mild TR, PASP 45. Repeat TTE in house showed trace-mild MR; normal LA; PASP 30s; otherwise unremarkable. - holding diuresis in the setting of euvolemia - likely will need afterload reduction regimen on discharge #UTI, resolved ED UA with 2+ LE, pyuria, suprapubic pain and dysuria. Was started on CTX, but subsequently UCx hadinsufficient growth. - Completed abx course of CTX given symptoms and leukocytosis #KARINA, resolved Admit creatinine 1.4 from 0.8 on 11/19/22. Improved with IVF. Suspect 2/2 over-diuresis. - Trend and CTM #DM2 Last A1c 12/04/2022: Hgb A1C 7.3. Unclear if on any regimen at home. - Carb-consistent diet, accuchecks, scheduled + SSI, hypoglycemia protocol #Constipation, resolved Suspect in setting of electrolyte abnormalities and poor PO intake. Pt had a BM on 12/04 evening, nowhaving regular BMs. - Miralax daily PRN #HLD -home simvastatin 80 switched to atorva 40 daily in the setting of drug-drug interactions with diltiazem #GERD -home PPI #Mood disorder, NOS -home imipramine 50 mg daily #Post-herpetic neuralgia Had shingles 6 weeks ago treated with Valtrex. - Gabapentin 100 TID - Acetaminophen PRN, lidocaine patches PRN DVT ppx: AC as above Diet: Carb control Dispo: Pt recommended inpatient rehab, pt agreeable Jessica Roy MD, MPH Internal Medicine PGY-1 12/09/22 Cosigned by Kirsten Martins MD at 12/10/2022 9:42 PM CDT Associated attestation - Kirsten Martins MD - 12/10/2022 9:42 PM CDT Attending Documentation I have seen and examined the patient on 12/09/2022. I agree with the findings and plan of care as documented in the resident's/fellow's note. Supplementary Attestation The total encounter time on this service date was 25 minutes which was spent performing a itid-ia-jwck encounter and personally completing the provider-level activities documented in the note. This includes time spent prior to the visit and after the visit in direct care of the patient. This time does not include time spent in any separately reportable services. Kirsten Martins MD * Jessica Roy MD - 12/08/2022 7:49 AM CDT [facility] Daily Progress Note Chief Complaint: Syncope Brief HPI: Ms. Carroll is a 67 F with a-fib on apixaban, MVR, sensorineural hearing loss with bilateral cochlearimplants who presents with syncope, hypokalemia, metabolic alkalosis. Interval History: Mrs. Carroll reports feeling well again this morning without any chest pain, shortness of breath, or palpitations. She has a mild headache this morning and continues to have pain from her shingles. Herhusband is at bedside. NAEO. Afebrile, HDS, NSR HRs in mid 80s to upper 70s overnight K 3.8 and Mg 1.8 repleted overnight, Cr stable BGs improved yesterday with scheduled insulin Interval Plan: - Appreciate EP recs - Convert amio drip --> po 400 mg TID for a load of 8 g - Continue metop 12.5 mg q6h for rate control started 5/5 PM --> 25 mg tonight, then consolidatetomorrow - Schedule 4u lispro TIDAC + 2u glargine qhs - Decrease lytes from q8 --> q12 now that Mrs. Carroll is requiring less aggressive repletion consistently Objective Vital Signs: 24hr Min/Max: Temp Min: 36.8 ??C (98.2 ??F) Max: 37 ??C (98.6 ??F) Pulse Min: 87 Max: 98 BP Min: 127/94 Max: 152/82 Resp Min: 18 Max: 18 SpO2 Min: 95 % Max: 97 % Most Recent: Vitals: 12/08/22 0215 BP: 142/63 Pulse: 89 Resp: 18 Temp: SpO2: 95% Intake/Output: Intake/Output Summary (Last 24 hours) at 12/08/2022 0749 Last data filed at 12/08/2022 0532 Gross per 24 hour Intake 710 ml Output 500 ml Net 210 ml Physical Exam: Constitutional: Female appearing stated age in NAD. Eyes: PERRL, EOMI, anicteric. ENT: NCAT. Moist mucus membranes. Hard of hearing w/ implants in place. CV: RRR, no m/r/g. 2+ radial pulses b/l. No JVD. Lungs: Non-labored breathing. Clear to auscultation in all lung verde. Trachea midline. GI: Atraumatic. Soft, non-tender, non-distended. Normoactive bowel sounds to auscultation. Skin: No new rashes, lesions or bruises. Extremities: No edema or cyanosis. Neurologic: AOx4, non-focal. Psychiatric: Normal affect and mood. Current Medications: Current Facility-Administered Medications: acetaminophen (TYLENOL) tablet 650 mg, 650 mg, oral, Q4H PRN, 650 mg at 12/08/22 0220 amiodarone in dextrose (NEXTERONE) 360 mg/200 mL (1.8 mg/mL) infusion (premix), 0.5 mg/min, intravenous, Continuous, Last Rate: 16.67 mL/hr at 12/07/222112, 0.5 mg/min at 12/07/222112 apixaban (ELIQUIS) tablet 5 mg, 5 mg, oral, Q12H, 5 mg at 12/07/222113 atorvastatin (LIPITOR) tablet 40 mg, 40 mg, oral, Nightly, 40 mg at 12/07/222113 Carrier Fluids for Secondary Infusion - 0.9% Sodium Chloride, 30 mL, intravenous, PRN Saline lock IV, , , Once AND sodium chloride 0.9% flush 0.5-20 mL, 0.5-20 mL, intra-catheter, Q8H CARROLL, 10 mL at 12/07/222114 AND sodium chloride 0.9% flush 0.5-20 mL, 0.5-20 mL, intra-catheter, PRN AND Carrier Fluids for Secondary Infusion - 0.9% Sodium Chloride, 30 mL, intravenous, PRN cyclobenzaprine (FLEXERIL) tablet 10 mg, 10 mg, oral, TID PRN, 10 mg at 12/07/222113 dextrose gel in packet 15 g, 15 g, oral, Q15 Min PRN OR dextrose (D10W) 10% bolus 250 mL, 250 mL, intravenous, Q15 Min PRN gabapentin (NEURONTIN) capsule 100 mg, 100 mg, oral, TID, 100 mg at 12/07/222113 glucagon injection 1 mg, 1 mg, intramuscular, Q30 Min PRN imipramine (TOFRANIL) tablet 50 mg, 50 mg, oral, Daily, 50 mg at 12/07/22 0850 insulin lispro (HumaLOG, ADMELOG) 100 unit/mL injection 0-4 Units, 0-4 Units, subcutaneous, Nightly, 1 Units at 12/07/222114 insulin lispro (HumaLOG, ADMELOG) 100 unit/mL injection 0-5 Units, 0-5 Units, subcutaneous, TID with meals, 1 Units at 12/07/22 170 insulin lispro (HumaLOG, ADMELOG) 100 unit/mL injection 4 Units, 4 Units, subcutaneous, TID with meals lidocaine (LIDODERM) 5 % patch 2 patch, 2 patch, transdermal, Daily PRN, 2 patch at 12/04/222012 lidocaine (LMX) 4 % cream 1 Application, 1 Application, topical, TID PRN metoprolol tartrate (LOPRESSOR) immediate release tablet 12.5 mg, 12.5 mg, oral, Q6H, 12.5 mg at 12/08/[address] (PROTONIX) extended release tablet 40 mg, 40 mg, oral, Daily, 40 mg at 12/07/22 0850 polyethylene glycol (MIRALAX) packet 17 g, 17 g, oral, Daily PRN potassium, sodium phosphates (PHOS-NAK) 280-160-250 mg packet 1 packet, 1 packet, oral, QID (AC & HS), 1 packet at 12/07/222113 sodium chloride 0.9% flush 0.5-20 mL, 0.5-20 mL, intra-catheter, Q8H CARROLL, 10 mL at 12/08/22 0532 sodium chloride 0.9% flush 0.5-20 mL, 0.5-20 mL, intra-catheter, PRN Lab/Radiology/Diagnostic Review: Labs: Recent Labs Lab Units 12/07/22210912/05/22 2044 12/05/22 0408 12/04/22 0604 12/03/22 1910 HEMOGLOBIN g/dL 10.3* 10.5* 10.4* 11.5* 14.4 HEMATOCRIT % 30.8* 31.0* 31.1* 33.5* 40.0 WBC K/cumm 10.9* 12.3* 12.0* 13.2* 18.9* PLATELETS K/cumm 375 369 358 411* 490* Recent Labs Lab Units 12/08/22 0042 12/07/22210905/23 1055 12/06/22 2355 12/06/22 1648 SODIUM mmol/L 140 142 140 142 141 POTASSIUM PLASMA mmol/L 3.8 4.0 See Comment 3.9 3.8 CHLORIDE mmol/L 101 102 101 101 99 CO2 mmol/L 33* 32 29 34* 33* ANIONGAP mmol/L 6 8 10 7 9 BUN SERUM mg/dL 16 17 13 17 15 CREATININE mg/dL 0.96 0.99 0.93 1.13* 1.08 CALCIUM mg/dL 9.0 9.2 9.1 9.1 9.4 MAGNESIUM mg/dL 1.8 1.8 2.1 1.8 1.8 Recent Labs Lab Units 12/05/22 1503 ALBUMIN g/dL 3.0* ALK PHOS Units/L 87 AST Units/L 36 ALT Units/L 18 BILIRUBIN TOTAL mg/dL 0.2 BILIRUBIN DIRECT mg/dL <0.2 Recent Labs Lab Units 12/03/22 1910 TSH mcIUnit/mL 0.90 Cultures: Lab Results Component Value Date MICROBIOLOGY Final Report: Negative 12/04/2022 MICROBIOLOGY 12/03/2022 Final Report: Less than 100,000 colonies/mL (clinically insignificant growth based on current clinical standards) Assessment/Plan Stella Carroll is a 67 y.o. woman with a history of a-fib on apixaban, MVR, sensorineural hearing losswho presented 12/03/22 with 3-4 weeks of syncopal events found to be profoundly hypokalemic with metabolic alkalosis, likely secondary to over-diuresis. She was admitted to MICU on 12/03 for severe hypokalemia. #Atrial fibrillation/flutter Was potentially on sotalol 80 mg BID, propranolol 120 mg daily, and diltiazem 120 mg ER daily. QTc over 600 at presentation. Was in sinus rhythm on presentation; around 4am on 12/05, went into likely AFlutter RVR vs Afib (stable BPs); given metop 5 x3 with no response, then given amio 150 IV bolus x2; subsequently HR improved; on telemetry, seemed to convert back to NSR at 5:53am on 12/05; amio drip was started at 1 around 8am on 12/05, and the patient was later transitioned to dilt. 12/06 early AM, patient again went into asymptomatic and HDS AFib w/ RVR unresponsive to metop IV 5 and po dilt, latertransitioned to Aflutter with 2:1, converted to NSR w/ amio bolus and reinitiation of amio drip. Pthas been in NSR since re-initiation of amio drip on 12/06. - S/p EP consult - 12/08 Convert amio drip to 400mg TID for load to 8g - Telemetry - Electrolyte repletion as below - Home apixaban 5 BID - Sleep study referral outpatient - General cardiology follow up needed #Hypokalemia, resolved #Hypochloremia, resolved #Metabolic alkalosis, resolved Hypokalemia on presentation to 1.9 with hypochloremia to 75 and metabolic alkalosis. Denies N/V. Suspect etiology is iatrogenic from home diuretics (furosemide, HCTZ). CO2 improved to 29 on 12/07. - Holding diuretics - Trend BMP, Mg, Phos q12 and replete - phos QID #Syncope Suspect in setting of profound electrolyte abnormalities, polypharmacy (furosemide, HCTZ, sotalol, propranolol, diltiazem, gabapentin, cyclobenzaprine, alprazolam at home), and UTI. Initial EKG sinusrhythm with prolonged QTc. TSH, trops unremarkable. TTE in the MICU showed trade-mild MR; normal LA; PASP 30s; otherwise unremarkable. Less likely vasovagal, neurogenic. - PT/OT - Orthostatic vitals when able #Mitral regurgitation [employer], was on home furosemide 40 mg BID and HCTZ 25 mg daily. Outside TTE 11/19/22: LVEF 60-65%, severe MR with mildly calcified MV annulus, mildly enlarged LA, mild TR, PASP 45. Repeat TTE in house showed trace-mild MR; normal LA; PASP 30s; otherwise unremarkable. - holding diuresis in the setting of euvolemia - likely will need afterload reduction regimen on discharge #UTI ED UA with 2+ LE, pyuria, suprapubic pain and dysuria. Was started on CTX, but subsequently UCx hadinsufficient growth. - Completed abx course of CTX given symptoms and leukocytosis #KARINA, resolved Admit creatinine 1.4 from 0.8 on 11/19/22. Improved with IVF. Suspect 2/2 over-diuresis. - Trend and CTM #DM2 Last A1c 12/04/2022: Hgb A1C 7.3. Unclear if on any regimen at home. - Carb-consistent diet, accuchecks, scheduled + SSI, hypoglycemia protocol #Constipation, resolved Suspect in setting of electrolyte abnormalities and poor PO intake. Pt had a BM on 12/04 evening, nowhaving regular BMs. - Miralax daily PRN #HLD -home simvastatin 80 switched to atorva 40 daily in the setting of drug-drug interactions with diltiazem #GERD -home PPI #Mood disorder, NOS -home imipramine 50 mg daily #Post-herpetic neuralgia Had shingles 6 weeks ago treated with Valtrex. - Gabapentin 100 TID - Acetaminophen PRN, lidocaine patches PRN DVT ppx: AC as above Diet: Carb control Dispo: likely home when able Jessica Roy MD, MPH Internal Medicine PGY-1 12/08/22 Cosigned by Kirsten Martins MD at 12/10/2022 9:43 PM CDT Associated attestation - Kirsten Martins MD - 12/10/2022 9:43 PM CDT Attending Documentation I have seen and examined the patient on 12/08/22. I agree with the findings and plan of care as documented in the resident's/fellow's note. Supplementary Attestation The total encounter time on this service date was 20 minutes which was spent performing a [id number] encounter and personally completing the provider-level activities documented in the note. This includes time spent prior to the visit and after the visit in direct care of the patient. This time does not include time spent in any separately reportable services. Kirsten Martins MD * Matt Figueroa, GARY - 12/07/2022 8:31 AM CDT Occupational Therapy Occupational Therapy Initial Assessment NOTE:This is a summary note for the mayfield assessments completed during the evaluation session. For full details, review chart review for all flowsheets documented on by this Occupational Therapist on this date. Vital signs documented in vital signs flowsheet. Assessment Assessment Problem List: Decreased endurance, Decreased balance, Decreased functional mobility, Decreased ADL independence, Decreased IADL independence Barriers to Discharge: Current Mobility Status Barrier Comments: fall risk Plan Plan Plan: Plan of care initiated, If this is the last note, consider this the discharge summary OT Recommendation and Plan Recommendation/Plan OT Recommendation: Home with family, Home with 24 hour supervision, Home Health OT OT Frequency during current admission: 3-5x/wk Treatment/Interventions during current admission: ADL/IADL retraining, Balance Training, Bed mobility, Endurance training, Functional activity, Functional mobility training, Functional transfer training, Strengthening, Therapeutic activity, Therapeutic exercise, Transfer training OT - Next Appointment: 12/10/22 OT Evaluation Complete: Yes General Information General Chart Reviewed: Yes Session Type: Evaluation OT Received On: 12/07/22 Safe Environment: Arm band checked, Patient found in supine Subjective: Agreeable to Therapy Family/Caregiver Present: No Occupational Therapy-Patient Goal: Pt agreeable with OT goals and POC Precautions Precautions Precautions: Hearing, Fall risk Home Living Home Living Type of Home: House Home Layout: One level, Laundry in basement Home Access: Stairs to enter with rails Entrance Stairs-Rails: Right Entrance Stairs-Number of Steps: 2 Bathroom Shower/Tub: Walk-in shower without threshold Bathroom Toilet: Standard Bathroom Equipment: Shower chair Bathroom Accessibility: Accessible Home Mobility Equipment: Wheeled walker, Single point cane, Wheelchair-manual Additional Comments: Pt reported no use of DME prior to admission Prior Function Prior Function Level of [place]: Independent with ADLs, Independent functional transfers, Independent with ambulation Lives With: Spouse Receives Help From: Spouse/Significant other (multimedia authoring specialist assist available) ADL Assistance: Independent Instrumental ADL (IADL) Assistance: Independent Fall within the last 6 months: Yes Fall within the last 6 months comment: Pt reported 1 fall 2/2 syncope Activities of Daily Living Grooming Grooming: Where assessed: Chair Grooming: Level of assistance: Moderate Assist Grooming: Assistance with: Increased time to complete, Safety Toileting Toileting: Where assessed: Bedside Commode Toileting: Level of assistance: Minimum Assist Toileting: Assistance with: Increased time to complete, Other (Comment) (safety) Toilet Transfers Toilet Transfer From: Bed Toilet Transfer Type: To Toilet Transfer to: Standard bedside commode Toilet Transfer Technique: (stand and step) Toilet Transfer: Equipment: No device Toilet Transfers: Minimal assistance Toilet Transfers Comments: safety and balance Pain Pain Assessment Pain Assessment: No/denies pain Cognition Cognition Arousal/Alertness: Alert, Appropriate responses to stimuli Attention Span: Appears intact Memory: Appears intact Current communication: Appears Intact Orientation : Oriented X4 (person, place, time, situation) Following Commands: Follows all commands and directions without difficulty Safety Judgment: Good awareness of safety precautions Awareness of Errors: Good awareness of errors made Insight: Fully aware of deficits Problem Solving: Able to problem solve independently Compliance/Behavior: Easy to engage Perseveration: Not present Short Blessed Test What year is it now?: Correct What month is it now?: Correct Repeat this name and address after me: Philip Boss [address] [place] [address] Without looking at the clock, tell me what time it is: Correct-within one hour Count aloud backwards from 20-1: 0 Errors Say the months of the year backwards in reverse order: 0 Errors Repeat the name and address I asked you to remember: 0 Errors Short Blessed Total Score: 0 Short Blessed Comments: 0 6 Clicks Daily Activity - 6 Clicks Putting on and taking off regular lower body clothing: A Little Bathing: A little Toileting: A little Putting on and taking off upper body clothing: A Little Personal Grooming: A little Eating Meals: A little Total Score (range 6-24): 18 Score Interpretation: 18 Balance Static Sitting Balance Static Sitting-Balance Support: Feet supported, Bilateral upper extremity supported Static Sitting-Sitting Surface: Bed Static Sitting-Level of Assistance: Close supervision Static Sitting-Comment/# of Minutes: safety Dynamic Sitting Balance Dynamic Sitting-Balance Support: Feet supported, No upper extremity supported Dynamic Sitting-Balance: Lateral lean, Forward lean, Reaching for objects Dynamic Sitting-Sitting Surface: Bed Dynamic Sitting-Level of Assistance: Close supervision Dynamic Sitting-Comments: safety Static Standing Balance Static Standing-Balance Support: No upper extremity supported Static Standing-Standing Surface: Floor Static Standing-Level of Assistance: Minimum assistance Static Standing-Comment/# of Minutes: safety and steadying assist Transfers Transfers Transfer: Yes Transfer 1 Transfer From 1: Sit Transfer Type 1: To and from Transfer to 1: Stand Technique 1: Sit to stand, Stand to sit Transfer Device 1: No device Transfer Level of Assistance 1: Contact Guard Assist Trials/Comments 1: safety and steadying assist Bed Mobility Bed Mobility Bed Mobility: Yes Bed Mobility 1 Bed Mobility From 1: Supine Bed Mobility Type 1: To Bed Mobility to 1: Edge of bed Level of Assistance 1: Standby Assist Bed Mobility Comments 1: HOB elevated RUE Assessment RUE Assessment RUE Assessment: Within Functional Limits LUE Assessment LUE Assessment LUE Assessment: Within Functional Limits Safe Environment End of Session Safe Environment End of Therapy Session: Patient left in recliner, RN notified, Call light within reach, Overbed table within reach Other Comments OT Goals Multi-Disciplinary Problems (from Occupational Therapy) Active Problems Problem: Dressings Lower Extremities Start Date: 12/07/22 Goal Start Date Expected End Date End Date STG - Patient to complete lower body dressing 12/07/22 12/14/22 -- Goal Details: With SPV Problem: Grooming Start Date: 12/07/22 Goal Start Date Expected End Date End Date STG - Patient will complete grooming 12/07/22 12/14/22 -- Goal Details: With SPV at the sink Problem: Toileting Start Date: 12/07/22 Goal Start Date Expected End Date End Date STG - Patient will complete toileting tasks with 12/07/22 12/14/22 -- Goal Details: With SPV Problem: Transfers Start Date: 12/07/22 Goal Start Date Expected End Date End Date STG - Patient will perform toilet transfer 12/07/22 12/14/22 -- Goal Details: With SPV to standard toilet Reviewed By Renetta Mahan RN 12/07/22 2518 Renetta Mahan RN 12/06/22 1240 Tammi Ramesh RN 12/04/22 1300 For questions, please review the treatment team and contact the occupational therapist currently assigned to this patient. If an occupational therapist is not assigned to this patient, please call [phone]. * Jessica Roy MD - 12/07/2022 7:14 AM CDT Cardiology Firm Daily Progress Note Chief Complaint: Syncope Brief HPI: Ms. Carroll is a 67 F with a-fib on apixaban, MVR, sensorineural hearing loss with bilateral cochlearimplants who presents with syncope, hypokalemia, metabolic alkalosis. Interval History: Mrs. Craroll reports feeling well this morning and continues to deny and chest pain, palpitations, orshortness of breath. NAEO. Afebrile, NSR and normal rates on amio drip, HDS and remains on RA. Cr improved to 0.93 this AM - Continue amio drip - Continue Eliquis - Schedule 2u lispro TIDAC - Consult EP for Afib/flutter that has recurred despite multiple therapies - Discontinue ceftriaxone Objective Vital Signs: 24hr Min/Max: Temp Min: 36.2 ??C (97.2 ??F) Max: 37 ??C (98.6 ??F) Pulse Min: 84 Max: 150 BP Min: 103/59 Max: 145/62 Resp Min: 18 Max: 19 SpO2 Min: 94 % Max: 99 % Most Recent: Vitals: 12/07/22 0436 BP: Pulse: 99 Resp: Temp: SpO2: Intake/Output: Intake/Output Summary (Last 24 hours) at 12/07/2022 0714 Last data filed at 12/06/2022 2200 Gross per 24 hour Intake 890 ml Output 800 ml Net 90 ml Physical Exam: Constitutional: Female appearing stated age in NAD. Eyes: PERRL, EOMI, anicteric. ENT: NCAT. Moist mucus membranes. Hard of hearing. CV: RRR, no m/r/g. 2+ radial pulses b/l. No JVD. Lungs: Non-labored breathing. Clear to auscultation in all lung verde. Trachea midline. GI: Atraumatic. Soft, non-tender, non-distended. Normoactive bowel sounds to auscultation. Skin: No new rashes, lesions or bruises. Extremities: No edema or cyanosis. Neurologic: AOx4, non-focal. Psychiatric: Normal affect and mood. Current Medications: Current Facility-Administered Medications: acetaminophen (TYLENOL) tablet 650 mg, 650 mg, oral, Q4H PRN, 650 mg at 12/07/22 0301 amiodarone in dextrose (NEXTERONE) 360 mg/200 mL (1.8 mg/mL) infusion (premix), 0.5 mg/min, intravenous, Continuous, Last Rate: 16.67 mL/hr at 12/06/222158, 0.5 mg/min at 12/06/222158 apixaban (ELIQUIS) tablet 5 mg, 5 mg, oral, Q12H, 5 mg at 12/06/222144 atorvastatin (LIPITOR) tablet 40 mg, 40 mg, oral, Nightly, 40 mg at 12/06/222144 Carrier Fluids for Secondary Infusion - 0.9% Sodium Chloride, 30 mL, intravenous, PRN Saline lock IV, , , Once AND sodium chloride 0.9% flush 0.5-20 mL, 0.5-20 mL, intra-catheter, Q8H CARROLL, 10 mL at 12/06/222145 AND sodium chloride 0.9% flush 0.5-20 mL, 0.5-20 mL, intra-catheter, PRN AND Carrier Fluids for Secondary Infusion - 0.9% Sodium Chloride, 30 mL, intravenous, PRN cefTRIAXone (ROCEPHIN) 1,000 mg/10 mL in sterile water (premix) 1,000 mg, 1,000 mg, intravenous, Q24H CARROLL, 1,000 mg at 12/06/222158 cyclobenzaprine (FLEXERIL) tablet 10 mg, 10 mg, oral, TID PRN, 10 mg at 12/05/222035 dextrose gel in packet 15 g, 15 g, oral, Q15 Min PRN OR dextrose (D10W) 10% bolus 250 mL, 250 mL, intravenous, Q15 Min PRN gabapentin (NEURONTIN) capsule 200 mg, 200 mg, oral, TID, 200 mg at 12/06/222144 glucagon injection 1 mg, 1 mg, intramuscular, Q30 Min PRN imipramine (TOFRANIL) tablet 50 mg, 50 mg, oral, Daily, 50 mg at 12/06/22827 insulin lispro (HumaLOG, ADMELOG) 100 unit/mL injection 0-4 Units, 0-4 Units, subcutaneous, Nightly, 1 Units at 12/06/222144 insulin lispro (HumaLOG, ADMELOG) 100 unit/mL injection 0-5 Units, 0-5 Units, subcutaneous, TID with meals, 1 Units at 12/06/221820 lidocaine (LIDODERM) 5 % patch 2 patch, 2 patch, transdermal, Daily PRN, 2 patch at 12/04/222012 pantoprazole DR (PROTONIX) extended release tablet 40 mg, 40 mg, oral, Daily, 40 mg at 12/06/22 0828 polyethylene glycol (MIRALAX) packet 17 g, 17 g, oral, Daily PRN potassium, sodium phosphates (PHOS-NAK) 280-160-250 mg packet 1 packet, 1 packet, oral, QID (AC & HS), 1 packet at 12/06/222144 sodium chloride 0.9% flush 0.5-20 mL, 0.5-20 mL, intra-catheter, Q8H CARROLL, 10 mL at 12/06/222145 sodium chloride 0.9% flush 0.5-20 mL, 0.5-20 mL, intra-catheter, PRN Lab/Radiology/Diagnostic Review: Labs: Recent Labs Lab Units 12/05/22 2044 12/05/22 0408 12/04/22 0604 12/03/22 1910 HEMOGLOBIN g/dL 10.5* 10.4* 11.5* 14.4 HEMATOCRIT % 31.0* 31.1* 33.5* 40.0 WBC K/cumm 12.3* 12.0* 13.2* 18.9* PLATELETS K/cumm 369 358 411* 490* Recent Labs Lab Units 12/06/22 2355 12/06/22 1648 12/06/22 1029 12/05/22 2042 12/05/22 1503 SODIUM mmol/L 142 141 138 140 141 POTASSIUM PLASMA mmol/L 3.9 3.8 4.3 4.1 4.0 CHLORIDE mmol/L 101 99 97 98 99 CO2 mmol/L 34* 33* 33* 35* 37* ANIONGAP mmol/L 7 9 8 7 5 BUN SERUM mg/dL 17 15 12 18 19 CREATININE mg/dL 1.13* 1.08 0.83 1.01 1.01 CALCIUM mg/dL 9.1 9.4 8.9 9.4 8.9 MAGNESIUM mg/dL 1.8 1.8 2.0 3.5* 1.7 Recent Labs Lab Units 12/05/22 1503 ALBUMIN g/dL 3.0* ALK PHOS Units/L 87 AST Units/L 36 ALT Units/L 18 BILIRUBIN TOTAL mg/dL 0.2 BILIRUBIN DIRECT mg/dL <0.2 Recent Labs Lab Units 12/03/22 1910 TSH mcIUnit/mL 0.90 Cultures: Lab Results Component Value Date MICROBIOLOGY Final Report: Negative 12/04/2022 MICROBIOLOGY 12/03/2022 Final Report: Less than 100,000 colonies/mL (clinically insignificant growth based on current clinical standards) Assessment/Plan Stella Carroll is a 67 y.o. woman with a history of a-fib on apixaban, MVR, sensorineural hearing losswho presented 12/03/22 with 3-4 weeks of syncopal events found to be profoundly hypokalemic with metabolic alkalosis, likely secondary to over-diuresis. She was admitted to MICU on 12/03 for severe hypokalemia. #Atrial fibrillation/flutter Was potentially on sotalol 80 mg BID, propranolol 120 mg daily, and diltiazem 120 mg ER daily. QTc over 600 at presentation. Was in sinus rhythm on presentation; around 4am on 12/05, went into likely AFlutter RVR vs Afib (stable BPs); given metop 5 x3 with no response, then given amio 150 IV bolus x2; subsequently HR improved; on telemetry, seemed to convert back to NSR at 5:53am on 12/05; amio drip was started at 1 around 8am on 12/05, and the patient was later transitioned to dilt. 12/06 early AM, patient again went into asymptomatic and HDS AFib w/ RVR unresponsive to metop IV 5 and po dilt, latertransitioned to Aflutter with 2:1, converted to NSR w/ amio bolus and reinitiation of amio drip. 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 Outside TTE 11/19/22: LVEF 60-65%, severe MR with mildly calcified MV annulus, mildly enlarged LA, mild TR, PASP 45. Repeat TTE in house showed trade-mild MR; normal LA; PASP 30s; otherwise unremarkable. - holding diuresis in the setting of euvolemia - likely will need afterload reduction regimen on discharge #Hypokalemia, resolved #Hypochloremia, resolved #Metabolic alkalosis, improving Hypokalemia on presentation to 1.9 with hypochloremia to 75 and metabolic alkalosis. Denies N/V. Suspect etiology is iatrogenic from home diuretics (furosemide, HCTZ). CO2 improved to 29 on 12/07. - Holding diuretics - Trend BMP, Mg, Phos q12 and replete - phos QID #Syncope Suspect in setting of profound electrolyte abnormalities, polypharmacy (furosemide, HCTZ, sotalol, propranolol, diltiazem, gabapentin, cyclobenzaprine, alprazolam at home), and UTI. Initial EKG sinusrhythm with prolonged QTc. TSH, trops unremarkable. TTE in the MICU showed trade-mild MR; normal LA; PASP 30s; otherwise unremarkable. Less likely vasovagal, neurogenic. - PT/OT - Orthostatic vitals when able #UTI ED UA with 2+ LE, pyuria, suprapubic pain and dysuria. Was started on CTX, but subsequently UCx hadinsufficient growth. - Complete abx course of CTX given symptoms and leukocytosis #KARINA (resolved) Admit creatinine 1.4 from 0.8 on 11/19/22. Improved with IVF. Suspect 2/2 over-diuresis. - Trend and CTM #DM2 Last A1c 12/04/2022: Hgb A1C 7.3. Unclear if on any regimen at home. - Carb-consistent diet, accuchecks, SSI, hypoglycemia protocol #Constipation Suspect in setting of electrolyte abnormalities and poor PO intake. Pt had a BM on 12/04 evening. - Miralax daily PRN #HLD -home simvastatin 80 switched to atorva 40 daily in the setting of drug-drug interactions with diltiazem #GERD -home PPI #Mood disorder, NOS -home imipramine 50 mg daily #Post-herpetic neuralgia Had shingles 6 weeks ago treated with Valtrex. - Gabapentin 100 TID - Acetaminophen PRN, lidocaine patches PRN DVT ppx: AC as above Diet: Carb control Dispo: likely home when able Jessica Roy MD, MPH Internal Medicine PGY-1 12/07/22 Cosigned by Kirsten Martins MD at 12/07/2022 10:38 PM CDT Associated attestation - Kirsten Martins MD - 12/07/2022 10:38 PM CDT I have seen and examined the patient on 12/07/22. I agree with the findings and plan of care as documented in the resident's/fellow's note. Continue amio gtt with plans to start rate control with BB as pt with improved BP this am. Cont Eliquis. Will consult EP. Cont optimize pain management of post herpatic neuralgia. Per pt's - she developed some dizziness with increased dose of gabapentin - maintain current lower dose, will add lidocaine patch. * Estela Rojo, PT - 12/06/2022 3:30 PM CDT Physical Therapy Progress Note NOTE: This is a summary note of the [place] components of the treatment session. For full details, review chart for all flowsheets documented on by this physical therapy clinician on this date. Vital signs documented in vital signs flowsheet. Care plan progress documented in Care Plan Activity. For questions, please review the treatment team and contact the PT or ELECTRONICS INSTALLER currently assigned to this patient. If a physical therapy clinician is not assigned to this patient, please call [phone]. 12/06/22 1530 PT Last Visit Session Type Treatment PT Received On 12/06/22 Safe Environment Arm band checked;Patient found in supine;Gait belt utilized for all out of bed mobility Subjective Agreeable to Therapy Family/Caregiver Present No Precautions Precautions Fall risk;Hearing Activity Tolerance Activity Tolerance Comments yovani somewhat hard Pain Assessment Pain Assessment No/denies pain Cognition Orientation Oriented X4 (person, place, time, situation) Dynamic Sitting Balance Dynamic Sitting-Balance Support Feet supported;No upper extremity supported Dynamic Sitting-Balance Lateral lean;Forward lean;Reaching for objects Dynamic Sitting-Sitting Surface Bed Dynamic Sitting-Level of Assistance Close supervision Static Standing Balance Static Standing-Balance Support Unilateral upper extremity supported Static Standing-Standing Surface Floor Static Standing-Level of Assistance Minimum assistance Dynamic Standing Balance Dynamic Standing-Balance Support Unilateral upper extremity supported Dynamic Standing-Balance Lateral lean;Forward lean Dynamic Standing-Standing Surface Floor Dynamic Standing-Level of Assistance Minimum assistance Bed Mobility 1 Bed Mobility From 1 Supine Bed Mobility Type 1 To Bed Mobility to 1 Edge of bed Level of Assistance 1 Moderate Assist Bed Mobility Comments 1 trunk elevation, hip scooting, verbal/visual/tactile cues for positioning and technique Transfer 1 Transfer From 1 Sit Transfer Type 1 To and from Transfer to 1 Stand Transfer Device 1 Wheeled walker;No device Transfer Level of Assistance 1 Minimum Assist Trials/Comments 1 assist for balance, verbal and visual cues for positioning and technique Ambulation Ambulation Yes Ambulation 1 Distance (ft) 1 100 Surface 1 Level tile Device 1 Wheeled walker Assistance 1 Contact Guard Assist;Minimum Assist Gait: Requires assist with 1 Maintaining balance Gait: Requires verbal cues to 1 Use assistive device safely;Utilize appropriate gait sequencing;Increase step length;Increase base of support;Pace activity;Improve upright posture Gait Deviations 1 Base of support - decreased;Tamara - decreased;Heel strike - decreased;Turns - difficulty;Step length - decreased;Posture - flexed Quality of Gait 1 min assist for 1 LOB laterally Ambulation Comments 1 100' x 2 with brief stand rest break Ambulation 2 Distance (ft) 2 30 Surface 2 Level tile Device 2 Hand held assist Assistance 2 Minimum Assist;Moderate Assist Gait: Requires assist with 2 Maintaining balance Gait: Requires verbal cues to 2 Prevent bumping into environmental barriers (montalvo/furniture);Improve upright posture;Increase step length;Increase base of support;Pace activity;Utilize appropriate gait sequencing Gait Deviations 2 Base of support - decreased;Tamara - decreased;Heel strike - decreased;Lateral trunk lean/sway;Posture - flexed;Step length - decreased Basic Mobility - 6 Click How much difficulty does the patient have: Turning over in bed 3 How much difficulty does the patient currently have: Sitting down and standing up from a chair witharms? 3 How much difficulty does the patient have: Moving from lying on back to sitting on the side of the bed? 2 How much difficulty does the patient have: Moving to and from a bed to a chair including wheelchair? 3 How much help does the patient currently need: Walk in hospital room? 3 How much help from another person does the patient currently need: Climbing 3-5 steps with a railing? 3 Total 6 Click Score (range 6-24) 17 Score Interpretation 39.67 Safe Environment End of Therapy Session Safe Environment End of Therapy Session Patient left in recliner;RN notified;Call light within reach;Overbed table within reach Assessment Prognosis Good Problem List Gait deviations;Decreased strength;Decreased endurance;Impaired balance;Decreased mobility Plan Plan Continue with current plan;If this is the last note, consider this the discharge summary Recommendation/Plan PT Recommendation/Plan Inpatient Rehab Facility Patient at high risk for Falls;Readmission;Injury due to decreased ability to care for self Recommend Inpatient Rehab/Acute Rehab due to Ability to actively participate in intensive therapy 3hours/day, 5 days/week or 900 minutes per week;Highly motivated to participate in therapy PT Frequency during current admission 3-5x/wk Treatment/Interventions during current admission Balance Training;Bed mobility;Endurance training;Equipment eval/education;Functional activity;Gait training;Parent/caregiver training and education;Therapeutic exercise Progress during current admission Progressing toward goals PT - Next Appointment 12/07/22 Multi-Disciplinary Problems (from Physical Therapy) Active Problems Problem: Mobility Start Date: 12/05/22 Goal Start Date Expected End Date End Date STG - Patient will ambulate 12/05/22 12/15/22 -- Goal Details: 300' Least restrictive device Standby assistance Goal Start Date Expected End Date End Date STG - Patient will ascend and descend 2 stairs with the following level of assist: 12/05/22 12/15/22 -- Goal Details: Standby assistance Problem: Transfers Start Date: 12/05/22 Goal Start Date Expected End Date End Date STG - Transfer from bed to chair 12/05/22 12/15/22 -- Goal Details: Standby assistance a Goal Start Date Expected End Date End Date STG - Patient to transfer to and from sit to supine 12/05/22 12/15/22 -- Goal Details: Modified independence Goal Start Date Expected End Date End Date STG - Patient will transfer sit to and from stand 12/05/22 12/15/22 -- Goal Details: Standby assistance Reviewed By Renetta Mahan RN 12/06/22 1240 Tammi Ramesh RN 12/04/22 1300 * Estela Rojo, PT - 12/06/2022 8:58 AM CDT 12/06/22 0858 PT Last Visit PT Missed Visit Reason Other (comment) (resting heart rate 150 bpm) * Jessica Roy MD - 12/06/2022 6:55 AM CDT Images from the original note were not included. [facility]iology [facility] Daily Progress Note Chief Complaint: Syncope Brief HPI: Ms. Carroll is a 67 F with a-fib on apixaban, MVR, sensorineural hearing loss with bilateral cochlearimplants who presents with syncope, hypokalemia, metabolic alkalosis. Interval History: Overnight at around 4am, pt went into asymptomatic and HDS Afib w/ RVR w/ rates in the 140s-150s. She received 5 mg IV metop with mild improvement in her HRs to the 120s-130s, and dilt 45 mg po was given, but she remained in asymptomatic Afib this morning. IV metop x5 given again without improvement in rates. Tele appeared more regular, EKG w/ A flutter 2:1. Patient was given an amio bolus and restarted on amio drip with conversion to NSR. BP recheck at ~11AM was 112/61 and the patient reportedfeeling well, though she continues to have burning pain. - See objective for tele screenshots - Continue amio drip and complete amio load - Continue Eliquis - Increase gabapentin to 200 mg TID Objective Vital Signs: 24hr Min/Max: Temp Min: 36.2 ??C (97.2 ??F) Max: 36.8 ??C (98.2 ??F) Pulse Min: 72 Max: 137 BP Min: 110/62 Max: 136/60 Resp Min: 16 Max: 23 SpO2 Min: 94 % Max: 100 % Most Recent: Vitals: 12/06/22 0435 BP: 113/71 Pulse: (!) 137 Resp: Temp: SpO2: 96% Intake/Output: Intake/Output Summary (Last 24 hours) at 12/06/2022 0656 Last data filed at 12/06/2022 0510 Gross per 24 hour Intake 596.63 ml Output 1250 ml Net -653.37 ml Physical Exam: Constitutional: Female appearing stated age in NAD Eyes: PERRL, EOMI, anicteric. ENT: NCAT. Oropharynx normal, moist mucus membranes. Hard of hearing. CV: Irregularly irregular, no m/r/g. 2+ radial pulses b/l. No JVD. Lungs: Non-labored breathing. Clear to auscultation in all lung verde. Trachea midline. GI: Atraumatic.Soft, non-tender, non-distended. Normoactive bowel sounds to auscultation. Skin: No new rashes, lesions or bruises. Extremities: No edema or cyanosis. Neurologic: AOx4, non-focal. Psychiatric: Normal affect and mood. Current Medications: Current Facility-Administered Medications: acetaminophen (TYLENOL) tablet 650 mg, 650 mg, oral, Q4H PRN, 650 mg at 12/05/222035 apixaban (ELIQUIS) tablet 5 mg, 5 mg, oral, Q12H, 5 mg at 12/05/222036 atorvastatin (LIPITOR) tablet 40 mg, 40 mg, oral, Nightly, 40 mg at 12/05/222035 Carrier Fluids for Secondary Infusion - 0.9% Sodium Chloride, 30 mL, intravenous, PRN Saline lock IV, , , Once AND sodium chloride 0.9% flush 0.5-20 mL, 0.5-20 mL, intra-catheter, Q8H CARROLL, 10 mL at 12/05/22 0449 AND sodium chloride 0.9% flush 0.5-20 mL, 0.5-20 mL, intra-catheter, PRN AND Carrier Fluids for Secondary Infusion - 0.9% Sodium Chloride, 30 mL, intravenous, PRN cefTRIAXone (ROCEPHIN) 1,000 mg/10 mL in sterile water (premix) 1,000 mg, 1,000 mg, intravenous, Q24H CARROLL, 1,000 mg at 12/05/222035 cyclobenzaprine (FLEXERIL) tablet 10 mg, 10 mg, oral, TID PRN, 10 mg at 12/05/222035 dextrose gel in packet 15 g, 15 g, oral, Q15 Min PRN OR dextrose (D10W) 10% bolus 250 mL, 250 mL, intravenous, Q15 Min PRN dilTIAZem (CARDIZEM) tablet 45 mg, 45 mg, oral, QID, 45 mg at 12/06/22 0559 gabapentin (NEURONTIN) capsule 100 mg, 100 mg, oral, TID, 100 mg at 12/05/22 1817 glucagon injection 1 mg, 1 mg, intramuscular, Q30 Min PRN imipramine (TOFRANIL) tablet 50 mg, 50 mg, oral, Daily, 50 mg at 12/05/22 0754 insulin lispro (HumaLOG, ADMELOG) 100 unit/mL injection 0-4 Units, 0-4 Units, subcutaneous, Nightly, 1 Units at 12/05/222040 insulin lispro (HumaLOG, ADMELOG) 100 unit/mL injection 0-5 Units, 0-5 Units, subcutaneous, TID with meals, 3 Units at 12/05/221299 lidocaine (LIDODERM) 5 % patch 2 patch, 2 patch, transdermal, Daily PRN, 2 patch at 12/04/222012 pantoprazole DR (PROTONIX) extended release tablet 40 mg, 40 mg, oral, Daily, 40 mg at 12/05/22 075 polyethylene glycol (MIRALAX) packet 17 g, 17 g, oral, Daily PRN potassium, sodium phosphates (PHOS-NAK) 280-160-250 mg packet 1 packet, 1 packet, oral, QID (AC & HS), 1 packet at 12/05/22 220 sodium chloride 0.9% flush 0.5-20 mL, 0.5-20 mL, intra-catheter, Q8H CARROLL, 10 mL at 12/05/222036 sodium chloride 0.9% flush 0.5-20 mL, 0.5-20 mL, intra-catheter, PRN Lab/Radiology/Diagnostic Review: Labs: Recent Labs Lab Units 12/05/224 12/05/22 0408 12/04/22 0604 12/03/22 1910 HEMOGLOBIN g/dL 10.5* 10.4* 11.5* 14.4 HEMATOCRIT % 31.0* 31.1* 33.5* 40.0 WBC K/cumm 12.3* 12.0* 13.2* 18.9* PLATELETS K/cumm 369 358 411* 490* Recent Labs Lab Units 12/05/22 2042 12/05/22 1503 12/05/22 0848 12/05/22 0408 12/04/22 2208 SODIUM mmol/L 140 141 141 143 141 POTASSIUM PLASMA mmol/L 4.1 4.0 3.7 3.8 3.4 CHLORIDE mmol/L 98 99 98 100 95* CO2 mmol/L 35* 37* 39* 39* 40* ANIONGAP mmol/L 7 5 4 4 6 BUN SERUM mg/dL 18 19 21 24 31* CREATININE mg/dL 1.01 1.01 1.01 1.01 1.16* CALCIUM mg/dL 9.4 8.9 8.9 8.8 8.7 MAGNESIUM mg/dL 3.5* 1.7 1.9 2.0 2.0 Recent Labs Lab Units 12/05/22 1503 ALBUMIN g/dL 3.0* ALK PHOS Units/L 87 AST Units/L 36 ALT Units/L 18 BILIRUBIN TOTAL mg/dL 0.2 BILIRUBIN DIRECT mg/dL <0.2 Recent Labs Lab Units 12/03/22 1910 TSH mcIUnit/mL 0.90 Cultures: Lab Results Component Value Date MICROBIOLOGY Final Report: Negative 12/04/2022 MICROBIOLOGY 12/03/2022 Final Report: Less than 100,000 colonies/mL (clinically insignificant growth based on current clinical standards) TELE REVIEW: EKG obtained -> Afib w/ RVR EKG obtained --> Aflutter, 2:1 Assessment/Plan Stella Carroll is a 67 y.o. woman with a history of a-fib on apixaban, MVR, sensorineural hearing losswho presented 12/03/22 with 3-4 weeks of syncopal events found to be profoundly hypokalemic with metabolic alkalosis, likely secondary to over-diuresis. She was admitted to MICU on 12/03 for severe hypokalemia. #Atrial fibrillation/flutter Was potentially on sotalol 80 mg BID, propranolol 120 mg daily, and diltiazem 120 mg ER daily. QTc over 600 at presentation. Was in sinus rhythm on presentation; around 4am on 12/05, went into likely AFlutter RVR vs Afib (stable BPs); given metop 5 x3 with no response, then given amio 150 IV bolus x2; subsequently HR improved; on telemetry, seemed to convert back to NSR at 5:53am on 12/05; amio drip was started at 1 around 8am on 12/05, and the patient was later transitioned to dilt. 12/06 early AM, patient again went into asymptomatic and HDS AFib w/ RVR unresponsive to metop IV 5 and po dilt, latertransitioned to Aflutter with 2:1, converted to NSR w/ amio bolus and reinitiation of amio drip. - Continue amio load - Telemetry - Electrolyte repletion as below - Home apixaban 5 BID - Sleep study referral outpatient #MR BORGES, was on home furosemide 40 mg BID and HCTZ 25 mg daily. Outside TTE 11/19/22: LVEF 60-65%, severe MR with mildly calcified MV annulus, mildly enlarged LA, mild TR, PASP 45. Repeat TTE in house showed trade-mild MR; normal LA; PASP 30s; otherwise unremarkable. -holding diuresis in the setting of euvolemia -likely will need afterload reduction regimen on discharge #Hypokalemia, resolved #Hypochloremia, resolved #Metabolic alkalosis, improving Hypokalemia on presentation to 1.9 with hypochloremia to 75 and metabolic alkalosis. Denies N/V. Suspect etiology is iatrogenic from home diuretics (furosemide, HCTZ). - Holding diuretics - Trend BMP, Mg, Phos q8h and replete - phos QID #Syncope Suspect in setting of profound electrolyte abnormalities, polypharmacy (furosemide, HCTZ, sotalol, propranolol, diltiazem, gabapentin, cyclobenzaprine, alprazolam at home), and UTI. Initial EKG sinusrhythm with prolonged QTc. TSH, trops unremarkable. TTE in the MICU showed trade-mild MR; normal LA; PASP 30s; otherwise unremarkable. Less likely vasovagal, neurogenic. -PT/OT -Orthostatic vitals when able #UTI ED UA with 2+ LE, pyuria, suprapubic pain and dysuria. Was started on CTX, but subsequently UCx hadinsufficient growth. - Complete abx course of CTX 5d given symptoms and leukocytosis #KARINA (resolved) Admit creatinine 1.4 from 0.8 on 11/19/22. Improved with IVF. Suspect 2/2 over-diuresis. - Trend and CTM #DM2 Last A1c 12/04/2022: Hgb A1C 7.3. Unclear if on any regimen at home. - Carb-consistent diet, accuchecks, SSI, hypoglycemia protocol. #Constipation Suspect in setting of electrolyte abnormalities and poor PO intake. Pt had a BM on 12/04 evening. - Miralax daily PRN #HLD -home simvastatin 80 switched to atorva 40 daily in the setting of drug-drug interactions with diltiazem #GERD -home PPI #Mood disorder, NOS -home imipramine 50 mg daily #Post-herpetic neuralgia Had shingles 6 weeks ago treated with Valtrex. - Gabapentin 200 TID - Acetaminophen PRN, lidocaine patches PRN DVT ppx: AC as above Diet: Carb control Dispo: likely home when able Jessica Roy MD, MPH Internal Medicine PGY-1 12/06/22 Cosigned by Kirsten Martins MD at 12/07/2022 10:24 PM CDT Associated attestation - Kirsten Martins MD - 12/07/2022 10:24 PM CDT I have seen and examined the patient on 12/06/2022. I agree with the findings and plan of care as documented in the resident's/fellow's note. Mrs. Carroll went into Afib with RVR this am - pt asymptomatic and VS stable. Patient with paroxysmal Afib/Flutter which has been difficult to control - pt converted into NSR asamiodarone bolus started; cont amiodarone gtt with plan to start rate control with BB if tolerated by BP. Cont AC with Eliquis. Will benefit from sleep study as outpt. Severe MR on OSH TTE - I have personally reviewed TTE (12/04/22) mild to moderate MR, however this elsy technically challenging study. * Estela Rojo, PT - 12/05/2022 2:55 PM CDT Physical Therapy Physical Therapy Initial Assessment NOTE: This is a summary note for the [place] assessments completed during the evaluation session. For full details, review chart review for all flowsheets documented on by this physical therapist on thisdate. Vital signs documented in vital signs flowsheet. Assessment Assessment Prognosis: Good Problem List: Gait deviations, Decreased strength, Decreased endurance, Impaired balance, Decreasedmobility Problem List Comments: PT Diagnosis: Pt. Presents with hypokalemia and metabolic alkalosis with recent fall at home results in above listed activity deficits and impairments which prevent full participation in home and community mobility. Plan Plan Plan : Plan of care initiated, If this is the last note, consider this the discharge summary PT Recommendation and Plan Recommendation/Plan PT Recommendation/Plan: Inpatient Rehab Facility Patient at high risk for: Falls, Readmission, Injury due to decreased ability to care for self Recommend Inpatient Rehab/Acute Rehab due to: Ability to actively participate in intensive therapy 3 hours/day, 5 days/week or 900 minutes per week, Highly motivated to participate in therapy PT Frequency during current admission: 3-5x/wk Treatment/Interventions during current admission: Balance Training, Bed mobility, Endurance training, Equipment eval/education, Functional activity, Gait training, Parent/caregiver training and education, Therapeutic exercise Progress during current admission: Progressing toward goals PT - Next Appointment: 12/06/22 PT Evaluation Complete: Yes General Information General Chart Reviewed: Yes Session Type: Evaluation PT Received On: 12/05/22 Safe Environment: Arm band checked, Patient found in supine, Session completed bedside, Gait belt utilized for all out of bed mobility Subjective: Agreeable to Therapy Family/Caregiver Present: Yes (spouse) Physical Therapy-Patient Goal: to have less fear moving Prior Function Prior Function Level of [place]: Independent functional transfers, Independent with ADLs, Independent with ambulation Lives With: Spouse Receives Help From: Spouse/Significant other (probably can get multimedia authoring specialist assistance) Fall within the last 6 months: Yes Fall within the last 6 months comment: 2-3 falls related to syncope Home Living Home Living Home Layout: Able to live on main level with bedroom/bathroom, Laundry in basement Home Access: Stairs to enter with rails Entrance Stairs-Rails: Right Entrance Stairs-Number of Steps: 2 Home Mobility Equipment: Wheeled walker, Single point cane, Wheelchair-manual Additional Comments: Pt. reports she does not use a device at baseline. She reports her just obtained DME listed. Precautions Precautions Precautions: Fall risk Pain Pain Assessment Pain Assessment: No/denies pain Cognition Cognition Orientation : Oriented X4 (person, place, time, situation) 6 Clicks Basic Mobility - 6 Click How much difficulty does the patient have: Turning over in bed: A little How much difficulty does the patient currently have: Sitting down and standing up from a chair witharms?: A little How much difficulty does the patient have: Moving from lying on back to sitting on the side of the bed?: A little How much difficulty does the patient have: Moving to and from a bed to a chair including wheelchair?: A little How much help does the patient currently need: Walk in hospital room?: A little How much help from another person does the patient currently need: Climbing 3-5 steps with a railing?: A little Total 6 Click Score (range 6-24): 18 Score Interpretation: 18 Bed Mobility Bed Mobility 1 Bed Mobility From 1: Supine Bed Mobility Type 1: To Bed Mobility to 1: Edge of bed Level of Assistance 1: Standby Assist Bed Mobility Comments 1: HOB elevated moderately, cues for positioning Transfers Transfers Transfer: Yes Transfer 1 Transfer From 1: Sit Transfer Type 1: To and from Transfer to 1: Stand Transfer Device 1: No device, Wheeled walker Transfer Level of Assistance 1: Minimum Assist Trials/Comments 1: assist for balance, verbal cues for positioning and technique, performed x 3 trials Transfers 2 Transfer From 2: Stand, Bed Transfer Type 2: To Transfer to 2: Chair with arms Technique 2: Stand and step Transfer Device 2: Hand held assist Transfer Level of Assistance 2: Minimum Assist Trials/Comments 2: assist for balance Balance Dynamic Sitting Balance Dynamic Sitting-Balance Support: Feet supported, No upper extremity supported Dynamic Sitting-Balance: Lateral lean, Forward lean, Reaching for objects Dynamic Sitting-Sitting Surface: Bed Dynamic Sitting-Level of Assistance: Close supervision Static Standing Balance Static Standing-Balance Support: Unilateral upper extremity supported Static Standing-Standing Surface: Floor Static Standing-Level of Assistance: Minimum assistance Dynamic Standing Balance Dynamic Standing-Balance Support: Unilateral upper extremity supported Dynamic Standing-Balance: Lateral lean, Forward lean Dynamic Standing-Standing Surface: Floor Dynamic Standing-Level of Assistance: Minimum assistance Ambulation Ambulation Ambulation: Yes Ambulation 1 Distance (ft) 1: 50 Surface 1: Level tile Device 1: Wheeled walker Assistance 1: Minimum Assist Gait: Requires assist with 1: Maintaining balance Gait: Requires verbal cues to 1: Use assistive device safely, Utilize appropriate gait sequencing, Improve upright posture, Increase step length, Increase base of support, Pace activity Gait Deviations 1: Heel strike - decreased, Hip/knee flexion during swing phase - decreased, Posture - flexed, Step length - decreased, Tamara - decreased, Base of support - decreased Stairs Curbs RLE Assessment RLE Assessment RLE Comments: grossly 4/5 LLE Assessment LLE Assessment LLE Comments: grossly 4/5 Equipment Used Safe Environment End of Session Safe Environment End of Therapy Session: Patient left supine in bed, RN notified, Call light withinreach, Overbed table within reach Other Comments PT Goals Multi-Disciplinary Problems (from Physical Therapy) Active Problems Problem: Mobility Start Date: 12/05/22 Goal Start Date Expected End Date End Date STG - Patient will ambulate 12/05/22 12/15/22 -- Goal Details: 300' Least restrictive device Standby assistance Goal Start Date Expected End Date End Date STG - Patient will ascend and descend 2 stairs with the following level of assist: 12/05/22 12/15/22 -- Goal Details: Standby assistance Problem: Transfers Start Date: 12/05/22 Goal Start Date Expected End Date End Date STG - Transfer from bed to chair 12/05/22 12/15/22 -- Goal Details: Standby assistance a Goal Start Date Expected End Date End Date STG - Patient to transfer to and from sit to supine 12/05/22 12/15/22 -- Goal Details: Modified independence Goal Start Date Expected End Date End Date STG - Patient will transfer sit to and from stand 12/05/22 12/15/22 -- Goal Details: Standby assistance Reviewed By Tamim Ramesh RN 12/04/22 1300 * Edward Muir OT - 12/05/2022 11:03 AM CDT Occupational Therapy 12/05/22 1103 General OT Missed Visit Reason Unavailable (pt transferred from ICU to floor, will follow up on floor) * Dylan Smith MD - 12/05/2022 10:46 AM CDT Cardiology Firm Daily Progress Note Chief Complaint: Syncope Brief HPI: Patient is a 67 yo F with PMH of afib on AC, MVR, hearing loss who presented to hospitl with 3-4 weeks of syncopal events. She had recently presented to OSH for SVT thoughout to afib vs aflutter with RVR. She had multiple recurrences that was refractory to the point that she required IV dilt, a dose of digoxin, and sotalol loading throughout the hospitalization. Ultimately, she was discharged on PO diltiazem and sotalol. Notably, during these admissions her TSH was WNL and her K was 3.0. Patient was also noted to have SOB which improved with lasix. TTE showed EF 65% and mod- severe MR. Per her discharge summary, it appears that her medication list included Eliquis 5 BID, lasix 40 PO BID, sotalol 80 q12h, dilt 120 ER daily, propanolol 120 ER daily, Mag 400 daily, K 20 daily, omeprazole, simvastatin 80 daily, HCTZ 25 daily, gabapetin 300 nightly, and alprazolam 0.25 TID prn. Her imiramine was held. On admission here, she stated that she had been having syncopal events about once a day but is unclear about specific details.She reported that the episodes would entail feeling suddenly weak and then either falling to the floor involuntarily or being helped to the floor. Denied prodrome, chest pain, palpitations. Afterwards, she sometimes could not recall the specifics of the event. She denied any tongue-biting, urinary or fecal incontinence, or rhythmic/jerking movements. In the ED, vitals were stable. Labs s/f K 2.1 > 1.9, CO2 > 45, Cl 75, Mg 2.3, creatinine ~1.4, calcium 10.9, WBC 18.9, UA 2+ LE, pyruia. CTH with bilateral cochlear implants with streak artifact limiting read however no intracranial process. CXR with mild bibasilar atelectasis, no pulmonary edema, consolidation, or pneumothorax, normal cardiac silhouette. EKG with junctional rhythm with rate in the 70's, TWI in AVR and V1, prolonged QT of 604, mild ST depressions in 1, 2, V4-V6. In the MICU, her potassium was aggressively repleted. No other episodes of syncope were noted during her brief stay there. Prior to transfer, she was reported to go into suspected atrial flutter. Upon review of EKG, appears to have been atrial fibrillation with rvr. She was given IV metop 5 x3 withno response, then given amio 150 IV bolus x2 with conversion into NSR per notes. Amio gtt was continued. Interval History: -EKG appears to show NSR -K 4.0, Mg 1.7 -Asymptomatic; denies any lightheadedness, dizziness, chest pain, SOB, or other symptoms Objective Vital Signs: 24hr Min/Max: Temp Min: 36.5 ??C (97.7 ??F) Max: 37 ??C (98.6 ??F) Pulse Min: 72 Max: 144 BP Min: 89/54 Max: 145/93 Resp Min: 16 Max: 24 SpO2 Min: 92 % Max: 100 % Most Recent: Vitals: 12/05/22 0900 BP: 134/68 Pulse: 78 Resp: 18 Temp: SpO2: 100% Intake/Output: Intake/Output Summary (Last 24 hours) at 12/05/2022 1046 Last data filed at 12/05/2022 0900 Gross per 24 hour Intake 3376.63 ml Output 1475 ml Net 1901.63 ml Physical Exam: Constitutional: female appearing stated age in NAD Eyes: PERRL, EOMI, anicteric. ENT: NCAT. Oropharynx normal, moist mucus membranes. Hard of hearing. CV: RRR, no m/r/g. 2+ radial pulses b/l. No JVD. Lungs: Non-labored breathing. Clear to auscultation in all lung verde, unlabored. Trachea midline. GI: Atraumatic.Soft, non-tender, non-distended. Normoactive bowel sounds to auscultation. No hepatomegaly or splenomegaly. No rebound, no guarding. Skin: No new rashes, lesions or bruises. Extremities: No edema or cyanosis. Lymph: No cervical, supraclavicular, axillary or inguinal adenopathy. Neurologic: AOx4, CNII-XII intact, normal strength and sensation. Psychiatric: Normal affect and mood. Current Medications: Current Facility-Administered Medications: acetaminophen (TYLENOL) tablet 650 mg, 650 mg, oral, Q4H PRN, 650 mg at 12/04/22 2101 amiodarone in dextrose (NEXTERONE) 360 mg/200 mL (1.8 mg/mL) infusion (premix), 1 mg/min, intravenous, Continuous, Last Rate: 33.3 mL/hr at 12/05/22 0754, 1 mg/min at 12/05/22 0754 FOLLOWED BY amiodarone in dextrose (NEXTERONE) 360 mg/200 mL (1.8 mg/mL) infusion (premix), 0.5 mg/min, intravenous, Continuous apixaban (ELIQUIS) tablet 5 mg, 5 mg, oral, Q12H, 5 mg at 12/05/22 0753 Carrier Fluids for Secondary Infusion - 0.9% Sodium Chloride, 30 mL, intravenous, PRN Saline lock IV, , , Once AND sodium chloride 0.9% flush 0.5-20 mL, 0.5-20 mL, intra-catheter, Q8H CARROLL, 10 mL at 12/05/22 0449 AND sodium chloride 0.9% flush 0.5-20 mL, 0.5-20 mL, intra-catheter, PRN AND Carrier Fluids for Secondary Infusion - 0.9% Sodium Chloride, 30 mL, intravenous, PRN cefTRIAXone (ROCEPHIN) 1,000 mg/10 mL in sterile water (premix) 1,000 mg, 1,000 mg, intravenous, Q24H CARROLL, 1,000 mg at 12/04/22 2101 cyclobenzaprine (FLEXERIL) tablet 10 mg, 10 mg, oral, TID PRN dextrose gel in packet 15 g, 15 g, oral, Q15 Min PRN OR dextrose (D10W) 10% bolus 250 mL, 250 mL, intravenous, Q15 Min PRN gabapentin (NEURONTIN) capsule 100 mg, 100 mg, oral, TID, 100 mg at 12/05/22 0754 glucagon injection 1 mg, 1 mg, intramuscular, Q30 Min PRN imipramine (TOFRANIL) tablet 50 mg, 50 mg, oral, Daily, 50 mg at 12/05/22 0754 insulin lispro (HumaLOG, ADMELOG) 100 unit/mL injection 0-4 Units, 0-4 Units, subcutaneous, Nightly, 2 Units at 12/04/222110 insulin lispro (HumaLOG, ADMELOG) 100 unit/mL injection 0-5 Units, 0-5 Units, subcutaneous, TID with meals, 1 Units at 12/05/22 09 lidocaine (LIDODERM) 5 % patch 2 patch, 2 patch, transdermal, Daily PRN, 2 patch at 12/04/222012 pantoprazole DR (PROTONIX) extended release tablet 40 mg, 40 mg, oral, Daily, 40 mg at 12/05/22 075 polyethylene glycol (MIRALAX) packet 17 g, 17 g, oral, Daily PRN potassium, sodium phosphates (PHOS-NAK) 280-160-250 mg packet 1 packet, 1 packet, oral, QID (AC & HS), 1 packet at 12/05/22 075 simvastatin (ZOCOR) tablet 80 mg, 80 mg, oral, Daily, 80 mg at 12/05/22 0753 sodium chloride 0.9% flush 0.5-20 mL, 0.5-20 mL, intra-catheter, Q8H CARROLL, 10 mL at 12/04/22 2200 sodium chloride 0.9% flush 0.5-20 mL, 0.5-20 mL, intra-catheter, PRN Lab/Radiology/Diagnostic Review: Labs: Recent Labs Lab Units 12/05/22 0408 12/04/22 0604 12/03/22 1910 HEMOGLOBIN g/dL 10.4* 11.5* 14.4 HEMATOCRIT % 31.1* 33.5* 40.0 WBC K/cumm 12.0* 13.2* 18.9* PLATELETS K/cumm 358 411* 490* Recent Labs Lab Units 12/05/22 0848 12/05/22 0408 12/04/22 2208 12/04/22 1649 12/04/22 1200 SODIUM mmol/L 141 143 141 142 139 POTASSIUM PLASMA mmol/L 3.7 3.8 3.4 3.2* 2.8* CHLORIDE mmol/L 98 100 95* 94* 91* CO2 mmol/L 39* 39* 40* 38* 43* ANIONGAP mmol/L 4 4 6 10 5 BUN SERUM mg/dL 21 24 31* 33* 37* CREATININE mg/dL 1.01 1.01 1.16* 1.17* 1.16* CALCIUM mg/dL 8.9 8.8 8.7 9.3 8.9 MAGNESIUM mg/dL 1.9 2.0 2.0 2.4 2.7* Recent Labs Lab Units 12/03/22 1910 TSH mcIUnit/mL 0.90 Cultures: Lab Results Component Value Date MICROBIOLOGY Final Report: Negative 12/04/2022 MICROBIOLOGY 12/03/2022 Final Report: Less than 100,000 colonies/mL (clinically insignificant growth based on current clinical standards) Assessment/Plan Stella Carroll is a 67 y.o. woman with a history of a-fib on apixaban, MVR, sensorineural hearing losswho presented 12/03/22 with 3-4 weeks of syncopal events found to be profoundly hypokalemic with metabolic alkalosis, likely secondary to over-diuresis. She was admitted to MICU on 12/03 for severe hypokalemia. #Atrial fibrillation/flutter Was potentially on sotalol 80 mg BID, propranolol 120 mg daily, and diltiazem 120 mg ER daily. QTc over 600 at presentation. Was in sinus rhythm on presentation; around 4am on 12/05, went into likely AFlutter RVR vs afib (stable BPs); given metop 5 x3 with no response, then given amio 150 IV bolus x2; subsequently HR improved; on telemetry, seemed to convert back to NSR at 5:53am on 12/05; amio drip was started at 1 around 8am on 12/05. - Amio infusion transitioned into PO dilt 120 XL daily - Telemetry - Electrolyte repletion as below - Home apixaban 5 BID #MR [employer]LECT[employer] INST[employer]ER, was on home furosemide 40 mg BID and HCTZ 25 mg daily. Outside TTE 11/19/22: LVEF 60-65%, severe MR with mildly calcified MV annulus, mildly enlarged LA, mild TR, PASP 45. Repeat TTE in showed trade-mild MR; normal LA; PASP 30s; otherwise unremarkable. -holding diuresis in the setting of euvolemia -likely will need afterload reduction regimen on discharge #Hypokalemia, resolved #Hypochloremia, resolved #Metabolic alkalosis, improving Hypokalemia on presentation to 1.9 with hypochloremia to 75 and metabolic alkalosis. Denies N/V. Suspect etiology is iatrogenic from home diuretics (furosemide, HCTZ). - Holding diuretics - Trend BMP, Mg, Phos q8h and replete - phos QID #Syncope Suspect in setting of profound electrolyte abnormalities, polypharmacy (furosemide, HCTZ, sotalol, propranolol, diltiazem, gabapentin, cyclobenzaprine, alprazolam at home), and UTI. Initial EKG sinusrhythm with prolonged QTc. TSH, trops unremarkable. TTE in the MICU showed trade-mild MR; normal LA; PASP 30s; otherwise unremarkable. Less likely vasovagal, neurogenic. -PT/OT -Orthostatic vitals when able #UTI ED UA with 2+ LE, pyuria, suprapubic pain and dysuria. Was started on CTX, but subsequently UCx hadinsufficient growth. - Complete abx course of CTX 5d given symptoms and leukocytosis #KARINA (resolved) Admit creatinine 1.4 from 0.8 on 11/19/22. Improved with IVF. Suspect 2/2 over-diuresis. - Trend and CTM #DM2 Last A1c 12/04/2022: Hgb A1C 7.3. Unclear if on any regimen at home. - Carb-consistent diet, accuchecks, SSI, hypoglycemia protocol. #Constipation Suspect in setting of electrolyte abnormalities and poor PO intake. Pt had a BM on 12/04 evening. - Miralax daily PRN #HLD -home simvastatin 80 switched to atorva 40 daily in the setting of drug-drug interactions with diltiazem #GERD -home PPI #Mood disorder, NOS -home imipramine 50 mg daily #Post-herpetic neuralgia Had shingles 6 weeks ago treated with Valtrex. - Gabapentin 100 TID - Acetaminophen PRN, lidocaine patches PRN DVT ppx: AC as above Diet: Carb control Dispo: likely home when able Dylan Smith MD Internal Medicine PGY-3 12/05/22 Cosigned by Kirsten Martins MD at 12/07/2022 5:54 PM CDT Associated attestation - Kirsten Martins MD - 12/07/2022 5:54 PM CDT I have seen and examined the patient on 12/05/22. I agree with the findings and plan of care as documented in the resident's/fellow's note. Patient with paroxysmal Afib/Flutter with RVR. She p/w with significant electrolyte abnormalities in setting of po lasix, diltiazem and sotalol. On transfer to floor electrolytes have normalized. Will start po diltiazem XL for rate control strategy while transitioning off amiodarone gtt. Pain control for post herpetic neuralgia. * Tammi Ramesh RN - 12/05/2022 9:45 AM CDT TRANSFERRED TO [facility] VIA W/C ON TYPIST AND AMINO DRIP. ACCOMPANIED BY THIS RN, PT TRANSPORT AND . A/O X4, DENIES ANY PAINS OR NEEDS. IV TO R A/C WITH NO S/S INFECTION OR INFILTRATION. ONCE IN BED ON FLOOR, PLACED ON TELE BOX AND CARE RELINQUISHED. * Tammi Ramesh RN - 12/05/2022 9:01 AM CDT REPORT CALLED TO [id number], SPOKE WITH MATT GRAHAM. ALL CURRENT QUESTIONS ANSWER. INFORMED PT AND OF TRANSFER. * Rodriguez Deluca MD - 12/05/2022 7:00 AM CDT ICU DAILY PROGRESS Patient: Stella Carroll Room: [id number] Date: 12/05/2022 SUBJECTIVE Subjective: - Yesterday, repleted lytes; subsequently spaced labs to Q8h and placed on the move list. ContinuedCTX for UTI pending UCx. TTE showed trade-mild MR; normal LA; PASP 30s; otherwise unremarkable. - Around 4am, went into AFib RVR (stable BPs); given metop 5 x3 with no response, then given amio 150 IV bolus x2; subsequently HR improved; ordered amio drip at 7am. - Now afeb, HR 70s-110, BP stable, SpO2 90s on RA. MEDICATIONS Scheduled Meds: Current Facility-Administered Medications Medication Dose Route Frequency Provider Last Rate Last Admin acetaminophen (TYLENOL) tablet 650 mg 650 mg oral Q4H PRN Leonard Amaral MD 650 mg at 12/04/22 0049 apixaban (ELIQUIS) tablet 5 mg 5 mg oral Q12H Leonard Amaral MD 5 mg at 12/04/22 0049 Carrier Fluids for Secondary Infusion - 0.9% Sodium Chloride 30 mL intravenous PRN Leonard Amaral MD sodium chloride 0.9% flush 0.5-20 mL 0.5-20 mL intra-catheter Q8H Leonard Hines MD 10 mLat 12/04/22 0606 And sodium chloride 0.9% flush 0.5-20 mL 0.5-20 mL intra-catheter PRN Leonard Amaral MD And Carrier Fluids for Secondary Infusion - 0.9% Sodium Chloride 30 mL intravenous PRN Leonard Amaral MD cefTRIAXone (ROCEPHIN) 1,000 mg/10 mL in sterile water (premix) 1,000 mg 1,000 mg intravenous Q24H Leonard Hines MD 1,000 mg at 12/03/228 gabapentin (NEURONTIN) capsule 100 mg 100 mg oral Once Leonard Amaral MD imipramine (TOFRANIL) tablet 50 mg 50 mg oral Daily Leonard Amaral MD lidocaine (LIDODERM) 5 % patch 2 patch 2 patch transdermal Daily PRN Leonard Amaral MD 2 patch at 12/04/[address] (PROTONIX) extended release tablet 40 mg 40 mg oral Daily Leonard Amaral MD polyethylene glycol (MIRALAX) packet 17 g 17 g oral Daily PRN Leonrad Amaral MD potassium chloride 40 mEq/520 mL in sodium chloride 0.9% (premix) 40 mEq 40 mEq intravenous Q4H Leonard Amaral MD 130 mL/hr at 12/04/22 0605 40 mEq at 12/04/22 0605 potassium chloride ER (KLOR-CON) extended release tablet 40 mEq 40 mEq oral Q4H Zia Palacios MD simvastatin (ZOCOR) tablet 80 mg 80 mg oral Daily Leonard Amaral MD sodium chloride 0.9% flush 0.5-20 mL 0.5-20 mL intra-catheter Q8H [facility] Leonard Amaral MD sodium chloride 0.9% flush 0.5-20 mL 0.5-20 mL intra-catheter PRN Leonard Amaral MD PRN Meds: acetaminophen sodium chloride 0.9% Saline lock IV AND sodium chloride 0.9% AND sodium chloride 0.9% AND sodium chloride 0.9% cyclobenzaprine dextrose OR dextrose glucagon lidocaine polyethylene glycol sodium chloride 0.9% OBJECTIVE Vitals: Vitals: 12/05/22 0600 BP: 126/72 Pulse: 76 Resp: 21 Temp: SpO2: 95% Input and Output: Intake/Output Summary (Last 24 hours) at 12/05/2022 0700 Last data filed at 12/05/2022 0537 Gross per 24 hour Intake 3460 ml Output 1800 ml Net 1660 ml Physical Exam: Constitutional: female appearing stated age in NAD Eyes: PERRL, EOMI, anicteric. ENT: NCAT. Oropharynx normal, moist mucus membranes. CV: RRR, no m/r/g. 2+ radial pulses b/l. No JVD. Lungs: Non-labored breathing. Clear to auscultation in all lung verde, unlabored. Trachea midline. GI: Atraumatic.Soft, non-tender, non-distended. Normoactive bowel sounds to auscultation. No hepatomegaly or splenomegaly. No rebound, no guarding. Skin: No new rashes, lesions or bruises. Extremities: No edema or cyanosis. Lymph: No cervical, supraclavicular, axillary or inguinal adenopathy. Neurologic: AOx4, CNII-XII intact, normal strength and sensation. Psychiatric: Normal affect and mood. LABORATORY DATA CBC Recent Labs Lab Units 12/04/22 0604 WBC K/cumm 13.2* HEMOGLOBIN g/dL 11.5* HEMATOCRIT % 33.5* PLATELETS K/cumm 411* NEUTROS PCT % 73.8 LYMPHS PCT % 16.4 MONOS PCT % 8.3 EOS PCT % 0.5 Chem Recent Labs Lab Units 12/04/22 2208 SODIUM mmol/L 141 POTASSIUM PLASMA mmol/L 3.4 CHLORIDE mmol/L 95* CO2 mmol/L 40* ANIONGAP mmol/L 6 BUN SERUM mg/dL 31* CREATININE mg/dL 1.16* GLUCOSE mg/dL 252* CALCIUM mg/dL 8.7 LFTs No lab exists for component: LABALBU Coags Cardiac Enzymes Urine Analysis Recent Labs Lab Units 12/03/22 2054 COLOR U Straw CLARITY U Clear SPEC GRAV U 1.017 PH, URINE 6.0 PROTEIN UR QL 1+* GLUCOSE URQL Negative KETONES UR Negative BLOOD UR Negative NITRITE UR Negative LEUKOCYTE ESTERASE UR 2+* ABG Screening Labs: Iron Studies Hgb A1C Recent Labs Lab Units 12/04/22 0604 HEMOGLOBIN A1C % 7.3* Radiology and Other Diagnostics: XR Chest 1 Vw Portable Result Date: 12/03/2022 There are no prior chest radiographs for comparison. The cardiomediastinal silhouette is normal. Mild bibasilar atelectasis. Possible trace left pleural effusion. No right pleural effusion. There is no pulmonary edema, focal consolidation, or pneumothorax. Dictated by: Zia Mccloud MD PHD The radiology attending physician has personally reviewed this study, and had reviewed and/or edited this written report and agrees with it. Electronically signed by: Pedro Heredia M.D. CT Head WO Contrast Result Date: 12/03/2022 Bilateral cochlear implants with associated extensive streak artifact throughout the lower [place] temporal lobes. Within these limitations, no acute intracranial hemorrhage. Dictated by: Conchis Sunn Konstantinoff, M.D. The radiology attending physician has personally reviewed this study, and had reviewed and/or edited this written report and agrees with it. Electronically signed by: Fransisco Miranda M.D. ASSESSMENT and PLAN Stella Carroll is a 67 y.o. woman with a history of a-fib on apixaban, MVR, sensorineural hearing losswho presented 12/03/22 with 3-4 weeks of syncopal events found to be profoundly hypokalemic with metabolic alkalosis, likely secondary to over-diuresis. She was admitted to MICU on 12/03 for severe hypokalemia. #AFlutter Unclear medication list from [facility] hospitalization. Was potentially on both sotalol 80 mg BID and propranolol 120 mg daily as well as diltiazem 120 mg ER daily. QTc over 600 at presentation. Repeat TTE in the MICU showed trade- mild MR; normal LA; PASP 30s; otherwise unremarkable. Was insinus rhythm on presentation; around 4am on 12/05, went into likely AFlutter RVR (stable BPs); given metop 5 x3 with no response, then given amio 150 IV bolus x2; subsequently HR improved; on telemetry, seemed to convert back to NSR at 5:53am on 12/05; amio drip was started at 1 around 8am on 12/05 - Amio infusion (12/05 - ) - Tele with QTc monitoring - Not currently giving propranolol, diltiazem, or sotalol - Home apixaban 5 BID #Hypokalemia, resolved #Hypochloremia, resolved #Metabolic alkalosis, improving Hypokalemia on presentation to 1.9 with hypochloremia to 75 and metabolic alkalosis concerning for vomiting as primary etiology. Was prescribed potassium chloride 20 mEq ER daily and magnesium oxide [address] [facility] so presumably this has been ongoing in the setting of diuretic use and poor PO intake. Denies N/V. Suspect etiology is iatrogenic from home diuretics (furosemide, HCTZ). - Holding diuretics - Trend lytes Q8h and replete; at time of MICU discharge, on phos QID #Syncope, resolved Suspect in setting of profound electrolyte abnormalities, polypharmacy (furosemide, HCTZ, sotalol, propranolol, diltiazem, gabapentin, cyclobenzaprine, alprazolam at home), and UTI. Initial EKG sinusrhythm with prolonged QTc. TSH, trops unremarkable. TTE in the MICU showed trade-mild MR; normal LA; PASP 30s; otherwise unremarkable. -PT/OT #UTI, ruled out ED UA with 2+ LE, pyuria, suprapubic pain and dysuria. Was started on CTX, but subsequently UCx hadinsufficient growth. - Consider discontinuation of abx #KARINA, improving Admit creatinine 1.4 from 0.8 on 11/19/22. Improving with IVF. Suspect 2/2 over-diuresis. #DM2 Last A1c 12/04/2022: Hgb A1C 7.3. Home regimen: none?. - Carb-consistent diet, accuchecks, SSI, hypoglycemia protocol. #Constipation Suspect in setting of electrolyte abnormalities and poor PO intake. Pt had a BM on 12/04 evening. 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 Holding here due to electrolyte abnormalities and over-diuresis. Outside TTE 11/19/22: LVEF 60-65%, severe MR with mildly calcified MV annulus, mildly enlarged LA, mild TR, PASP 45. Repeat TTE in the MICU showed trade-mild MR; normal LA; PASP 30s; otherwise unremarkable. #HL: home simvastatin 80 #GERD: home PPI #Mood disorder, NOS: home imipramine 50 mg daily #Post-herpetic neuralgia Had shingles 6 weeks ago treated with Valtrex. - Gabapentin 100 TID - Acetaminophen PRN, lidocaine patches PRN F (Feeding): consistent carb diet A (Analgesia): see post-herpetic neuralgia S (Sedation): N/A T (Thromboembolic prophylaxis): home apixaban H (HOB elevation): 30 degrees U (Stress ulcer prophylaxis): home PPI G (Glycemic control): see DM2 Code Status: Full code Dispo: [facility] Rodriguez Deluca MD MS PGY-2, Internal Medicine Cosigned by Caridad Akhtar MD at 12/05/2022 11:58 AM CDT Associated attestation - Caridad Akhtar MD - 12/05/2022 11:58 AM CDT Critical Care Time: I have spent 18 minutes in full attendance with this critically ill patient making frequent reassessments and decisions regarding this patient's complex medical care. Critical care time was exclusive of separately billable procedures, treating other patients and teaching time. Critical care was necessary to treat or prevent imminent or life-threatening deterioration of the following conditions:hypokalemia aflutter My Assessment and Plan:plan for hypokalemia is pulmonary hygiene, fio2 to keep sao2 > 92%, serial cbc, transfuse to Hg > 7, blood sugar control, nutritional support, monitor and correct electrolytes, cards recs, monitor potassium. Attending Documentation: as above I have seen and examined this patient on the day of service. I have reviewed and confirmed the history, physical exam, laboratory and radiographic data with the house staff as documented in the ICU resident note. I have reviewed and discussed my treatment plan with the ICU team and other medical/[employer]ph[employer] operations consultant staff. * Zia Palacios MD - 12/04/2022 8:13 AM CDT ICU DAILY PROGRESS Patient: Stella Carroll Room: [id number] Date: 12/04/2022 SUBJECTIVE Subjective: Patient feels well this morning, getting IV and PO KCl. NSR on telemetry off rate/rhythm control medications. Continue ceftriaxone for UTI. TTE to assess mitral valve. Will reach out to tank builder helper Dr. Smith tp discuss a-flutter regimen. Can TTF if K adequately replete. MEDICATIONS Scheduled Meds: Current Facility-Administered Medications Medication Dose Route Frequency Provider Last Rate Last Admin acetaminophen (TYLENOL) tablet 650 mg 650 mg oral Q4H PRN Leonard Amaral MD 650 mg at 12/04/2248 apixaban (ELIQUIS) tablet 5 mg 5 mg oral Q12H Leonard Amaral MD 5 mg at 12/04/2248 Carrier Fluids for Secondary Infusion - 0.9% Sodium Chloride 30 mL intravenous PRN Leonard Amaral MD sodium chloride 0.9% flush 0.5-20 mL 0.5-20 mL intra-catheter Q8H [facility] Leonard Amaral MD 10 mLat 12/04/22 0606 And sodium chloride 0.9% flush 0.5-20 mL 0.5-20 mL intra-catheter PRN Leonard Amaral MD And Carrier Fluids for Secondary Infusion - 0.9% Sodium Chloride 30 mL intravenous PRN Leonard Amaral MD cefTRIAXone (ROCEPHIN) 1,000 mg/10 mL in sterile water (premix) 1,000 mg 1,000 mg intravenous Q24H [facility] Leonard Amaral MD 1,000 mg at 12/03/22 2238 gabapentin (NEURONTIN) capsule 100 mg 100 mg oral Once Leonard Amaral MD imipramine (TOFRANIL) tablet 50 mg 50 mg oral Daily Leonard Amaral MD lidocaine (LIDODERM) 5 % patch 2 patch 2 patch transdermal Daily PRN Leonard Amaral MD 2 patch at 12/04/[address] (PROTONIX) extended release tablet 40 mg 40 mg oral Daily Leonard Amaral MD polyethylene glycol (MIRALAX) packet 17 g 17 g oral Daily PRN Leonard Amaral MD potassium chloride 40 mEq/520 mL in sodium chloride 0.9% (premix) 40 mEq 40 mEq intravenous Q4H Leonard Amaral MD 130 mL/hr at 12/04/22 0605 40 mEq at 12/04/22 0605 potassium chloride ER (KLOR-CON) extended release tablet 40 mEq 40 mEq oral Q4H Zia Palacios MD simvastatin (ZOCOR) tablet 80 mg 80 mg oral Daily Leonard Amaral MD sodium chloride 0.9% flush 0.5-20 mL 0.5-20 mL intra-catheter Q8H [facility] Leonard Amaral MD sodium chloride 0.9% flush 0.5-20 mL 0.5-20 mL intra-catheter PRN Leonard Amaral MD PRN Meds: acetaminophen sodium chloride 0.9% Saline lock IV AND sodium chloride 0.9% AND sodium chloride 0.9% AND sodium chloride 0.9% lidocaine polyethylene glycol sodium chloride 0.9% OBJECTIVE Vitals: Vitals: 05/02/23 0632 BP: Pulse: 69 Resp: 21 Temp: SpO2: (!) 87% Input and Output: Intake/Output Summary (Last 24 hours) at 12/04/2022 0813 Last data filed at 12/04/2022 0606 Gross per 24 hour Intake 2150 ml Output -- Net 2150 ml Physical Exam: Constitutional: female appearing stated age in NAD Eyes: PERRL, EOMI, anicteric. ENT: NCAT. Oropharynx normal, moist mucus membranes. CV: RRR, no m/r/g. 2+ radial pulses b/l. No JVD. Lungs: Non-labored breathing. Clear to auscultation in all lung verde, unlabored. Trachea midline. GI: Atraumatic.Soft, non-tender, non-distended. Normoactive bowel sounds to auscultation. No hepatomegaly or splenomegaly. No rebound, no guarding. Skin: No new rashes, lesions or bruises. Extremities: No edema or cyanosis. Lymph: No cervical, supraclavicular, axillary or inguinal adenopathy. Neurologic: AOx4, CNII-XII intact, normal strength and sensation. Psychiatric: Normal affect and mood. LABORATORY DATA CBC Recent Labs Lab Units 12/04/22 0604 WBC K/cumm 13.2* HEMOGLOBIN g/dL 11.5* HEMATOCRIT % 33.5* PLATELETS K/cumm 411* NEUTROS PCT % 73.8 LYMPHS PCT % 16.4 MONOS PCT % 8.3 EOS PCT % 0.5 Chem Recent Labs Lab Units 12/04/22 0604 SODIUM mmol/L 144 POTASSIUM PLASMA mmol/L 2.6* CHLORIDE mmol/L 90* CO2 mmol/L >45* ANIONGAP mmol/L <9 BUN SERUM mg/dL 43* CREATININE mg/dL 1.23* GLUCOSE mg/dL 157 CALCIUM mg/dL 9.1 LFTs No lab exists for component: LABALBU Coags Cardiac Enzymes Urine Analysis Recent Labs Lab Units 12/03/222053 COLOR U Straw CLARITY U Clear SPEC GRAV U 1.017 PH, URINE 6.0 PROTEIN UR QL 1+* GLUCOSE URQL Negative KETONES UR Negative BLOOD UR Negative NITRITE UR Negative LEUKOCYTE ESTERASE UR 2+* ABG Screening Labs: Iron Studies Hgb A1C Radiology and Other Diagnostics: XR Chest 1 Vw Portable Result Date: 12/03/2022 There are no prior chest radiographs for comparison. The cardiomediastinal silhouette is normal. Mild bibasilar atelectasis. Possible trace left pleural effusion. No right pleural effusion. There is no pulmonary edema, focal consolidation, or pneumothorax. Dictated by: Zia Mccloud MD PHD The radiology attending physician has personally reviewed this study, and had reviewed and/or edited this written report and agrees with it. Electronically signed by: Pedro Heredia M.D. CT Head WO Contrast Result Date: 12/03/2022 Bilateral cochlear implants with associated extensive streak artifact throughout the lower [place] temporal lobes. Within these limitations, no acute intracranial hemorrhage. Dictated by: Conchis Sorensen M.D. The radiology attending physician has personally reviewed this study, and had reviewed and/or edited this written report and agrees with it. Electronically signed by: Fransisco Miranda M.D. ASSESSMENT and PLAN Stella Carroll is a 67 y.o. woman with a history of a-fib on apixaban, MVR, sensorineural hearing losswho presented 12/03/22 with 3-4 weeks of syncopal events found to be profoundly hypokalemic with metabolic alkalosis, likely secondary to over-diuresis. She was admitted to MICU on 12/03 for severe hypokalemia. #Syncope Suspect in setting of profound electrolyte abnormalities, polypharmacy (furosemide, HCTZ, sotalol, propranolol, diltiazem, gabapentin, cyclobenzaprine, alprazolam at home), and UTI. EKG in sinus rhythm with prolonged QTc. TSH, trops unremarkable. - TTE #Hypokalemia, hypochloremia #Metabolic alkalosis Hypokalemia on presentation to 1.9 with hypochloremia to 75 and metabolic alkalosis concerning for vomiting as primary etiology. Was prescribed potassium chloride 20 mEq ER daily and magnesium oxide [address] [facility] so presumably this has been ongoing in the setting of diuretic use and poor PO intake. Denies N/V. Suspect metabolic alkalosis is secondary to contraction. - BMP/Mg/WBK Q4H with repletion - Hold diuretics #UTI ED UA with 2+ LE, pyuria, suprapubic pain and dysuria. - Ceftriaxone 1 g daily, follow up urine cultures #KARINA Admit creatinine 1.4 from 0.8 on 11/19/22. Improving with IVF. #Constipation Suspect in setting of electrolyte abnormalities and poor PO intake. - Miralax daily PRN #Junctional rhythm #History of reported a-flutter on apixaban Unclear medication list from [facility] hospitalization. Was potentially on both sotalol 80 mg BID and propranolol 120 mg daily as well as diltiazem 120 mg ER daily. QTc over 600 at presentation. - Discontinue home propranolol, diltiazem, and sotalol - Continue home apixaban 5 mg BID - TTE - Obtain records from [place] regarding her a-flutter #Severe MR Was on home furosemide 40 mg BID and HCTZ 25 mg daily. Hold here due to electrolyte abnormalities. Outside TTE 11/19/22: LVEF 60-65%, severe MR with mildly calcified MV annulus, mildly enlarged LA, mild TR, PASP 45. - TTE #Hyperlipidemia - Continue home simvastatin 80 mg daily #GERD - Continue home omeprazole 20 mg daily #Mood disorder NOS - Continue home imipramine 50 mg daily #Post-herpetic neuralgia Had shingles 6 weeks ago treated with Valtrex, subsequently tried gabapentin but made her too somnolent so stopped taking, feels pain is at an acceptable level at this time. - Acetaminophen PRN, lidocaine patches PRN F (Feeding): regular diet A (Analgesia): N/A S (Sedation): N/A T (Thromboembolic prophylaxis): home apixaban H (HOB elevation): 30 degrees U (Stress ulcer prophylaxis): home omeprazole G (Glycemic control): N/A Code Status: Full code Dispo: MICU Attending MD to make comment on patient risk/complexity. Zia Palacios, PGY-2 Internal Medicine Cosigned by Caridad Akhtar MD at 12/04/2022 12:09 PM CDT Associated attestation - Caridad Akhtar MD - 12/04/2022 12:09 PM CDT Critical Care Time: I have spent 18 minutes in full attendance with this critically ill patient making frequent reassessments and decisions regarding this patient's complex medical care. Critical care time was exclusive of separately billable procedures, treating other patients and teaching time. Critical care was necessary to treat or prevent imminent or life-threatening deterioration of the following conditions: hypokalemia metabolic alkalosis My Assessment and Plan:plan for hypokalemia metabolic alkalosis is pulmonary hygiene, fio2 to keep sao2 > 92%, serial cbc, transfuse to Hg > 7, blood sugar control, nutritional support, monitorand correct electrolytes, hold diuretics, avoid nephrotoxins, antibiotics for uti. Attending Documentation: as above I have seen and examined this patient on the day of service. I have reviewed and confirmed the history, physical exam, laboratory and radiographic data with the house staff as documented in the ICU resident note. I have reviewed and discussed my treatment plan with the ICU team and other medical/[employer] operations consultant staff. documented in this encounter H&P Notes * Leonard Amaral MD - 12/03/2022 10:08 PM CDT MICU History and Physical Patient: Stella Carroll Room: [place] [id number] Service Attending: Lissette Chief Complaint Patient presents with Syncope ADMITTING DIAGNOSIS: hypokalemia, metabolic alkalosis, syncope HPI: Subjective Stella Carroll is a 67 y.o. woman with a history of a-fib on apixaban, MVR, sensorineural hearing losswho presents with 3-4 weeks of syncopal events found to be profoundly hypokalemic with metabolic alkalosis. She reports 3 weeks ago she was hospitalized at [facility] for approximately 2 weeks due to syncopal events (unable to see records of this). At that time, she was diagnosed with a-fib and MR which she was told was severe. She was started on apixaban, sotalol, propranolol, diltiazem, furosemide, and HCTZ and discharged home in the middle of last week (she's unsure which date). At home, she continued to have syncopal events though less frequently, maybe once daily though she is not able to clearly delineate this and I was unable to get a hold of her with multiple phone calls. She reports these episodes as feeling suddenly weak and either falling to the floor involuntarily or being helped to the floor. She denies injury from any of these events. No prodrome, chest pain, palpitations. Afterwards, she sometimes cannot recall the specifics of the event. She deniesany tongue-biting, urinary or fecal incontinence, or rhythmic/jerking movements. On review of systems, she endorses poor PO intake due to not knowing how to prepare heart healthy foods at home, constipation (no bowel movement since hospital discharge), dysuria, urinary frequency, and suprapubic pain. She denies N/V aside from an episode of regurgitation of liquid KCl in the ED today. In the ED: - Vitals: 36.9, HR 60-70's, BP 110-130's/60's, RR ~20, SpO2 90-99% on room air - Labs: K 2.1 > 1.9, CO2 > 45, Cl 75, Mg 2.3, creatinine ~1.4, calcium 10.9, WBC 18.9 with neutrophilia, VBG 7.54/62, trop 88 > 108, UA 2+ LE, pyuria - CTH with bilateral cochlear implants with streak artifact limiting read however no intracranial process - CXR with mild bibasilar atelectasis, no pulmonary edema, consolidation, or pneumothorax, normal cardiac silhouette - EKG with junctional rhythm with rate in the 70's, TWI in AVR and V1, prolonged QT of 604, mild STdepressions in 1, 2, V4-V6 On arrival to the MICU, temp 36.6, HR 66, BP 121/57, RR 20, SpO2 95% on room air. EKG with NSR, QT 618, still with TWI in AVR and V1, mild ST depressions in V4-V6. PMH: A-fib on apixaban MVR PSH: Bilateral cochlear implants Allergies: No Known Allergies Home medications: No medications prior to admission. HOME MEDICATIONS : Not on File Family history: No family history on file. Social history: Social History Tobacco Use Smoking status: Not on file Smokeless tobacco: Not on file Substance and Sexual Activity Drug use: Not on file Sexual activity: Not on file Alcohol Use: Not on file Scheduled Medications: Scheduled Medications Medication Dose Route Frequency cefTRIAXone (ROCEPHIN) 1,000 mg/10 mL in sterile water (premix) 1,000 mg 1,000 mg intravenous Q24H CARROLL potassium chloride 40 mEq/520 mL in sodium chloride 0.9% (premix) 40 mEq 40 mEq intravenous Q4H Continuous Medications: Current Facility-Administered Medications Medication Dose Route Frequency Last Admin PRN Medications: acetaminophen, 1,000 mg, 1,000 mg at 12/03/22 1944 Review of Systems: Review of systems per HPI and otherwise all other systems are negative Objective Vitals: Arrival Vitals Temp 12/03/22 1505 36.9 ??C (98.4 ??F) Pulse 12/03/22 1505 67 Resp 12/03/22 1505 18 BP 12/03/22 1505 126/84 SpO2 12/03/22 1505 98 % Temp src 12/03/22 1505 Tympanic Heart Rate Source 12/03/22 1548 Monitor Patient Position 12/03/22 1548 Lying BP Location 12/03/22 1548 Left arm FiO2 (%) -- 24hr Min/Max: Temp Min: 36.6 ??C (97.9 ??F) Max: 36.9 ??C (98.4 ??F) Pulse Min: 62 Max: 72 BP Min: 115/61 Max: 146/59 Resp Min: 15 Max: 24 SpO2 Min: 90 % Max: 100 % Current Vitals: BP 121/57 (BP Location: Left arm, Patient Position: [facility] 30 degrees) Pulse 66 Temp 36.6 ??C (97.9 ??F) (Oral) Resp 20 Ht 149.9 cm (4' 11 ) Wt 72.3 kg (159 lb 6.3 oz) SpO2 95% BMI 32.19 kg/m?? Intake/Output: No intake/output data recorded. I/O this shift: In: 1100 [IV Piggyback:1100] Out: - Physical exam: Physical Exam Constitutional: Appearance: Normal appearance. HENT: Head: Comments: Bilateral cochlear implants Mouth/Throat: Mouth: Mucous membranes are moist. Cardiovascular: Rate and Rhythm: Normal rate and regular rhythm. Pulses: Normal pulses. Heart sounds: Normal heart sounds. Pulmonary: Effort: Pulmonary effort is normal. Breath sounds: Normal breath sounds. Abdominal: General: Abdomen is flat. Palpations: Abdomen is soft. Genitourinary: Comments: Suprapubic tenderness, no CVA tenderness Skin: General: Skin is warm and dry. Capillary Refill: Capillary refill takes less than 2 seconds. Comments: Left chest under breast wrapping around to back with shingles in various stages of healing, completely scabbed over. Neurological: General: No focal deficit present. Mental Status: She is alert and oriented to person, place, and time. Psychiatric: Mood and Affect: Mood normal. Behavior: Behavior normal. Lab/Radiology/Diagnostic Review: Reviewed Recent Results (from the past 24 hour(s)) CBC with auto differential Collection Time: 12/03/22 7:10 PM Result Value Ref Range WBC 18.9 (H) [...] 0.00 - 0.01 K/cumm Basic metabolic panel Collection Time: 12/03/22 7:10 PM Result Value Ref Range Sodium 139 135 [...] I high-sensitivity series (baseline, 2hr, 4hr, 6hr) Collection Time: 12/03/22 7:10 PM Result Value Ref Range Trop I hs 88 (H) <=17 ng/L Magnesium Collection Time: 12/03/22 7:10 PM Result Value Ref Range Magnesium 2.3 1.4 - 2.5 mg/dL TSH reflex to free T4 Collection Time: 12/03/22 7:10 PM Result Value Ref Range TSH 0.90 0.30 - 4.20 mcIUnit/mL Differential, auto Collection Time: 12/03/22 7:10 PM Result Value Ref Range Neutrophil abs 15.3 [...] pct 0.2 % Basophil pct 0.4 % eGFR Collection Time: 12/03/22 7:10 PM Result Value Ref Range eGFR 41 (L) 90 - 130 mL/min/1.73 m2 Critical Result Callback Chemistry Collection Time: 12/03/22 7:10 PM Result Value Ref Range Date Notified 20221203 Time Notified 2034 TestName Chloride Called/Read Back [place] Rodney Credentials Called By HANSEL Troponin I high-sensitivity 2-hour Collection Time: 12/03/22 8:53 PM Result Value Ref Range Trop I hs 108 (H) <=17 ng/L Trop I hs delta 20 (Critical) ng/L Trop I hs interp Significant (Critical) Blood gas, venous Collection Time: 12/03/22 8:53 PM Result Value Ref Range pH, Venous 7.54 (H) 7.32 - 7.43 PCO2, Venous 62 (H) 40 - 50 mmHg PO2, Venous 28 mmHg HCO3 Venous, Calculated 55 (Critical) 20 - 30 mmol/L BE, venous 25 mmol/L Basic metabolic panel Collection Time: 12/03/22 8:53 PM Result Value Ref Range Sodium 138 135 [...] Calcium 10.9 (H) 8.5 - 10.3 mg/dL Potassium, whole blood Collection Time: 12/03/22 8:53 PM Result Value Ref Range Potassium, bld 2.0 (Critical) 3.3 - 4.9 mmol/L Critical Result Callback Chemistry Collection Time: 12/03/22 8:53 PM Result Value Ref Range Date Notified 20221203 Time Notified 2103 TestName Potassium WB Called/Read Back Potassium WB Credentials RN Called By hansel Critical Result Callback Chemistry Collection Time: 12/03/22 8:53 PM Result Value Ref Range Date Notified 20221203 Time Notified 2108 TestName HCO3 [place] (Calc) Called/Read Back Kae Quinones Credentials RN Called By hansel Critical Result Callback Chemistry Collection Time: 12/03/22 8:53 PM Result Value Ref Range Date Notified 20221203 Time Notified 2157 TestName potassium plasma, co2 total, and chloride Called/Read Back Kingston Espinoza MD Called By truman eGFR Collection Time: 12/03/22 8:53 PM Result Value Ref Range eGFR 39 (L) 90 - 130 mL/min/1.73 m2 Lipid panel Collection Time: 12/03/22 8:53 PM Result Value Ref Range Cholesterol 183 30 - 199 mg/dL Triglycerides 109 <=149 mg/dL HDL 45 >=40 mg/dL LDL, calculated 116 <=129 mg/dL Non-HDL Cholesterol 138 mg/dL Chol/HDL ratio 4 Critical result callback Cardio chemistry Collection Time: 12/03/22 8:53 PM Result Value Ref Range Date Notified 20221203 Time Notified 2199 Test name Troponin I hs Called/Read Back Kingston Espinoza MD Called By truman Urinalysis reflex to microscopic and culture Urine Collection Time: 12/03/22 8:54 PM Specimen: Urine Result Value Ref Range Color, [...] Reflex to microscopic UA will be performed. Urinalysis, microscopic only Collection Time: 12/03/22 8:54 PM Result Value Ref Range WBC, ur 21-50 [...] Reflex to urine culture will be performed. PROCEDURES/IMAGING: CTH 12/03/22: IMPRESSION: Bilateral cochlear implants with associated extensive streak artifact throughout the lower [place] temporal lobes. Within these limitations, no acute intracranial hemorrhage. CXR 12/03/22: IMPRESSION: There are no prior chest radiographs for comparison. The cardiomediastinal silhouette is normal. Mild bibasilar atelectasis. Possible trace left pleural effusion. No right pleural effusion. There is no pulmonary edema, focal consolidation, or pneumothorax. ASSESSMENT & PLAN Stella Carroll is a 67 y.o. woman with a history of a-fib on apixaban, MVR, sensorineural hearing losswho presents with 3-4 weeks of syncopal events found to be profoundly hypokalemic with metabolic alkalosis. #Syncope Suspect in setting of profound electrolyte abnormalities, polypharmacy (furosemide, HCTZ, sotalol, propranolol, diltiazem, gabapentin, cyclobenzaprine, alprazolam at home), and UTI. Will start by repleting electrolytes, cutting back on polypharmacy as elsewhere, and treating UTI. - TTE, EKG, trend troponins to peak - TSH #Hypokalemia, hypochloremia #Metabolic alkalosis Hypokalemia on presentation to 1.9 with hypochloremia to 75 and metabolic alkalosis concerning for vomiting as primary etiology. Was prescribed potassium chloride 20 mEq ER daily and magnesium oxide [address] [facility] so presumably this has been ongoing in the setting of diuretic use and poor PO intake. Denies N/V. Suspect metabolic alkalosis is secondary to contraction. - BMP/Mg/WBK Q6H with repletion, will get NS with IV KCl - Hold diuretics #UTI ED UA with 2+ LE, pyuria, suprapubic pain and dysuria. - Ceftriaxone 1 g daily, follow up urine cultures #KARINA Admit creatinine 1.4 from unclear baseline. Suspect will improve with volume replacement. #Constipation Suspect in setting of electrolyte abnormalities and poor PO intake. - Miralax daily PRN #Junctional rhythm #History of reported a-fib on apixaban Unclear medication list from [facility] hospitalization. Was potentially on both sotalol 80 mg BID and propranolol 120 mg daily as well as diltiazem 120 mg ER daily. - Discontinue home propranolol and diltiazem - Hold home sotalol 80 mg BID in setting of reduced GFR and long QT, can likely resume in AM, may want to touch base with EP - Continue home apixaban 5 mg BID #Severe MR Was on home furosemide 40 mg BID and HCTZ 25 mg daily. Hold here due to electrolyte abnormalities. Outside TTE 11/19/22: LVEF 60-65%, severe MR with mildly calcified MV annulus, mildly enlarged LA, mild TR, PASP 45. - TTE #Hyperlipidemia - Continue home simvastatin 80 mg daily #GERD - Continue home omeprazole 20 mg daily #Mood disorder NOS - Continue home imipramine 50 mg daily #Post-herpetic neuralgia Had shingles 6 weeks ago treated with Valtrex, subsequently tried gabapentin but made her too somnolent so stopped taking, feels pain is at an acceptable level at this time. - Acetaminophen PRN, lidocaine patches PRN F (Feeding): regular diet A (Analgesia): N/A S (Sedation): N/A T (Thromboembolic prophylaxis): home apixaban H (HOB elevation): 30 degrees U (Stress ulcer prophylaxis): home omeprazole G (Glycemic control): N/A Code Status: Full code Dispo: ELLIE Amaral MD Internal Medicine PGY-2 12/03/2022 11:56 PM Cosigned by Alli Stahl MD at 12/06/2022 9:08 PM CDT Associated attestation - Alli Stahl MD - 12/06/2022 9:08 PM CDT Critical Care Time: I have spent 49 minutes in full attendance with this critically ill patient making frequent reassessments and decisions regarding this patient's complex medical care. Critical care time was exclusive of separately billable procedures, treating other patients and teaching time. Critical care was necessary to treat or prevent imminent or life-threatening deterioration of the following conditions: Syncope 2. Severe Hypokalemia 3. Metabolic alkalosis 4. Acute renal failure 5. Polypharmacy 6. Junctional rhythm 7. Urinary tract infection My Assessment and Plan: Electrolyte replacement Antibiotics for UTI Fluid replacement Hold rodolfo agents, normotensive. Severe MR. Attending Documentation: I have seen and examined this patient on the day of service. I have reviewed and confirmed the history, physical exam, laboratory and radiographic data with the house staff as documented in the ICU resident note. I have reviewed and discussed my treatment plan with the ICU team and other medical/sephora operations consultant staff. Alli Curry MD documented in this encounter Consult Notes * Amarjit Hall MD - 12/07/2022 8:25 AM CDTAssociated Order(s): IP CONSULT TO ELECTROPHYSIOLOGY Images from the original note were not included. Cardiology Consult Note - Electrophysiology Patient Name: Stella Carroll : 1955 Date of Service: 12/07/22 Requesting Attending: Kirsten Martins MD Reason for Consult: Atrial Fibrillation and Atrial Flutter Chief Complaint: syncope HPI Stella Carroll is a 67 y.o. female with a history of recently diagnosed atrial fibrillation/flutter, HTN, HLD, diabetes (A1C 7.3 12/2022), recent shingles and sensorineural hearing loss initially admitted 12/03 with profound electrolyte abnormalities. Electrophysiology has been consulted for atrial fibrillation and atrial flutter. She presented to [facility] in November with tachycardia (referred from her PCP's office). She had also developed shingles and was starting treatment with gabapentin and acyclovir. During that admission she was diagnosed with new atrial fibrillation/flutter as well as mitral regurgitation whichwas described as moderate to severe on an echo on 11/16. There was no other significant valvular disease, LVEF 60-65%. She received a wide variety of medications for atrial fibrillation and flutter during that admission including a diltiazem drip, metoprolol, sotalol, propranolol and digoxin. She received apixaban for anticoagulation. It appears she was discharged on sotalol 80mg BID and diltiazem 120 ER daily in addition to lasix. Ultimately but she represented on 12/03 to the ED with multiple syncopal episodes and falls. There was reportedly no prodrome. No tongue biting, urinary or fecal incontinence or seizure like movements.In the ED she was hemodynamically stable but had metabolic disarray with K 2.1, CO3 45, Cr 1.4, VBG7.54/62. CTH showed no acute intracranial process. ECG showed junctional rhythm at 71 w/ very long QTc at 650. She was admitted to the MICU for management of electrolyte abnormalities. In the MICU her electrolyte abnormalities were corrected and had episodes of AFib with RVR without hypotension and received multiple IV metoprolol boluses and later amiodarone infusion with return ofNSR on 12/05. She was transferred to the floor and has had intermittent atrial fibrillation and atrial flutter with 2:1 AV conduction. She remains on an amiodarone infusion with no other rate control agents. Her repeat TTE here showed normal biventricular function with trace to mild MR (compared to moderate to severe reported at [place]). On 12/06 AM she had atrial fibrillation with RVR, then organized to AFlutter with 2:1 AV conduction for several hours before ultimately returning to Afib and then NSR by late morning. She was asymptomatic at this time. Today she reports feeling well. She denies having any knowledge of when she is in Afib (no palpitations, SOB, dizziness or other symptoms). Review of Systems: Review of systems as per HPI and, otherwise all other systems are negative. PMHX: -HTN -HLD -Atrial fibrillation / flutter -Sensorineural hearing loss PSHX: -C section Family Hx: Noncontributory Social Hx: Lives with her in [place]. Worked previously in the [employer] Allergies: No Known Allergies Home Medications: HOME MEDICATIONS : cyclobenzaprine (FLEXERIL) 10 mg tablet Eliquis 5 mg tablet furosemide (LASIX) 40 mg tablet gabapentin (NEURONTIN) 300 mg capsule hydroCHLOROthiazide (HYDRODIURIL) 25 mg tablet imipramine (TOFRANIL) 50 mg tablet magnesium oxide (MAG-OX) 400 mg (241.3 mg elemental magnesium) tablet omeprazole (PriLOSEC) 20 mg capsule potassium chloride ER 20 mEq CR tablet propranolol LA (INDERAL LA) 120 mg 24 hr capsule simvastatin (ZOCOR) 80 mg tablet sotaloL (BETAPACE) 80 mg tablet Tiadylt ER 120 mg 24 hr capsule Current Medications: apixaban, 5 mg, oral, Q12H atorvastatin, 40 mg, oral, Nightly cefTRIAXone, 1,000 mg, intravenous, Q24H CARROLL gabapentin, 200 mg, oral, TID imipramine, 50 mg, oral, Daily insulin lispro, 0-4 Units, subcutaneous, Nightly insulin lispro, 0-5 Units, subcutaneous, TID with meals insulin lispro, 0.05 Units/kg (Dosing Weight), subcutaneous, TID with meals pantoprazole DR, 40 mg, oral, Daily potassium, sodium phosphates, 1 packet, oral, QID (AC & HS) sodium chloride 0.9%, 0.5-20 mL, intra-catheter, Q8H CARROLL sodium chloride 0.9%, 0.5-20 mL, intra-catheter, Q8H CARROLL amiodarone, 0.5 mg/min, Last Rate: 0.5 mg/min (12/06/22 6574) Objective Vital Signs: 24hr Min/Max: Temp Min: 36.2 ??C (97.2 ??F) Max: 36.6 ??C (97.8 ??F) Pulse Min: 84 Max: 150 BP Min: 103/59 Max: 145/62 Resp Min: 18 Max: 19 SpO2 Min: 95 % Max: 99 % Most Recent: Vitals: 12/07/22 0742 BP: 134/67 Pulse: 93 Resp: 18 Temp: 36.4 ??C (97.5 ??F) SpO2: 97% Intake/Output: Intake/Output Summary (Last 24 hours) at 12/07/2022 0826 Last data filed at 12/06/2022 2200 Gross per 24 hour Intake 890 ml Output 800 ml Net 90 ml Physical Exam: General appearance: no acute distress HEENT: NCAT, MMM, anicteric Lungs: CTAB, no w/r/r, non-labored Heart: RRR, S1, S2 normal, no murmur, rub or gallop. JVP not elevated, no LE edema Abdomen: soft, NT/ND Extremities: extremities normal, warm and well-perfused, equal pulses Skin: warm and dry Neurologic: No abnormal movements, non-focal exam Psych: Normal mood and affect Lab/Radiology/Diagnostic Review: Labs: Recent Labs Lab Units 12/05/22 2044 12/05/22 0408 12/04/22 0604 12/03/22 1910 HEMOGLOBIN g/dL 10.5* 10.4* 11.5* 14.4 HEMATOCRIT % 31.0* 31.1* 33.5* 40.0 WBC K/cumm 12.3* 12.0* 13.2* 18.9* PLATELETS K/cumm 369 358 411* 490* Recent Labs Lab Units 12/06/22 2355 12/06/22 1648 12/06/22 1029 12/05/22 2042 12/05/22 1503 SODIUM mmol/L 142 141 138 140 141 POTASSIUM PLASMA mmol/L 3.9 3.8 4.3 4.1 4.0 CHLORIDE mmol/L 101 99 97 98 99 CO2 mmol/L 34* 33* 33* 35* 37* ANIONGAP mmol/L 7 9 8 7 5 BUN SERUM mg/dL 17 15 12 18 19 CREATININE mg/dL 1.13* 1.08 0.83 1.01 1.01 CALCIUM mg/dL 9.1 9.4 8.9 9.4 8.9 MAGNESIUM mg/dL 1.8 1.8 2.0 3.5* 1.7 Recent Labs Lab Units 12/05/22 1503 ALBUMIN g/dL 3.0* ALK PHOS Units/L 87 AST Units/L 36 ALT Units/L 18 BILIRUBIN TOTAL mg/dL 0.2 BILIRUBIN DIRECT mg/dL <0.2 Recent Labs Lab Units 12/03/22 1910 TSH mcIUnit/mL 0.90 Cultures: Lab Results Component Value Date MICROBIOLOGY Final Report: Negative 12/04/2022 MICROBIOLOGY 12/03/2022 Final Report: Less than 100,000 colonies/mL (clinically insignificant growth based on current clinical standards) I personally reviewed the Telemetry images with the following findings: -12/06 AM was in atrial fibrillation, then about 7AM developed atrial flutter w/ 2:1 AV conduction @150 bpm for several hours, then afib until about 10am and NSR since then I personally reviewed the ECG images with the following findings: 12/06, 11AM: NSR, normal axis, downsloping ST segments with nonspecific T wave abnormality in V4-V6 12/06, 5AM: Atrial fibrillation with RVR (117 bpm), TTE: 12/04/2022 Normal LV and RV size and systolic function. LVEF 76%. Normal LV wall thickness/mass. No WMA. No significant valvular abnormalities noted. Trace-mild MR. LA is normal. Normal RV cavity size. Strain quality is inadequate for accurate reporting. Normal diastolic function. Estimated PA systolic pressure 30+RA(3) mmHg. Normal Inferior vena cava. Normal aorta. No prior study. TTE 11/16 ([facility]) Stress test: None Cardiac catheterization: None CT Head 12/03: Bilateral cochlear implants with associated extensive streak artifact throughout the lower parietal and temporal lobes. Within these limitations, no acute intracranial hemorrhage. Assessment/Plan Stella Carroll is a 67 y.o. female with a history of recently diagnosed atrial fibrillation/flutter, HTN, HLD, diabetes, recent shingles and sensorineural hearing loss initially admitted 12/03 with profound electrolyte abnormalities, now with ongoing paroxsymal atrial fibrillation and typical atrial flutter. #Atrial Fibrillation #Atrial flutter Mrs. Carroll has asymptomatic paroxysmal atrial fibrillation/flutter which has been somewhat challenging to rate control. Given the flutter, some degree of rhythm control may be necessary. No utility in ablation in the acute setting (and the co-existence of Fib/Flutter complicates this approach). No significant structural heart disease. Recommendations: -Transition from IV amiodarone to PO 400mg TID until loaded to 8g -Can start metoprolol 12.5mg q6h for rate control; if bradycardia results, ok to discontinue -Agree with anticoagulation with apixaban -No indication for ablation -Would ensure she has general cardiology follow up -Recommended outpatient sleep study We appreciate the ability to be involved in this patient's care. If after 5PM or on weekends, please page the appliance parts counter clerk nurse's companion with any questions or concerns. Amarjit Hall MD Scraper Loader Operator 8:26 AM 12/07/22 Cosigned by Lenard Cooper MD at 12/17/2022 2:34 AM CDT Associated attestation - Lenard Cooper MD - 12/17/2022 2:34 AM CDT I have seen and examined the patient on 12/07/22. I agree with the findings and plan of care as documented in the resident's/fellow's note. * Katie Anne, SOPHIE - 12/06/2022 4:01 PM CDTAssociated Order(s): IP CONSULT TO NUTRITION SERVICES Nutrition Assessment Reason for Assessment: Consult/Referral Encounter Date: 12/06/22 4:02 PM Patient is a 67 y.o. female with chief complaint of metabolic alkalosis. LOS is 3 days. HPI: Stella Carroll is a 67 y.o. woman with a history of a-fib on apixaban, MVR, sensorineural hearing losswho presented 12/03/22 with 3-4 weeks of syncopal events found to be profoundly hypokalemic with metabolic alkalosis, likely secondary to over-diuresis. She was admitted to MICU on 12/03 for severe hypokalemia. Objective No past medical history on file. No past surgical history on file. Social History Tobacco Use Smoking status: Never Passive exposure: Never Smokeless tobacco: Never Substance and Sexual Activity Drug use: Not on file Sexual activity: Not on file Alcohol Use: Not on file No family history on file. Anthropometrics: Wt Readings from Last 3 Encounters: 12/04/22 72.3 kg (159 lb 6.3 oz) Anthropometrics Weight: 72.3 kg (159 lb 6.3 oz) Admission Weight : 72.3 kg Weight Change: 0.00 kg (0.00 lbs) IBW/kg (Calculated) : 43.1 kg Height: 149.9 cm (4' 11 ) Weight in (lb) to have BMI = 25: 123.5 BMI (Calculated): 32.2 Nutrition Needs Calculations: Calculated Energy Needs Using Equations Weight: 72.3 kg (159 lb 6.3 oz) Height: 149.9 cm (4' 11 ) Vital Signs: BP: 113/52 Temp: 36.2 ??C (97.2 ??F) Pulse: 84 Resp: 19 SpO2: 95 % Medications: Scheduled Meds: apixaban, 5 mg, oral, Q12H atorvastatin, 40 mg, oral, Nightly cefTRIAXone, 1,000 mg, intravenous, Q24H CARROLL gabapentin, 200 mg, oral, TID imipramine, 50 mg, oral, Daily insulin lispro, 0-4 Units, subcutaneous, Nightly insulin lispro, 0-5 Units, subcutaneous, TID with meals metoprolol, , , pantoprazole DR, 40 mg, oral, Daily potassium, sodium phosphates, 1 packet, oral, QID (AC & HS) sodium chloride 0.9%, 0.5-20 mL, intra-catheter, Q8H CARROLL sodium chloride 0.9%, 0.5-20 mL, intra-catheter, Q8H CARROLL Continuous Infusions: amiodarone, 0.5 mg/min, Last Rate: 0.5 mg/min (12/06/22 1019) PRN Meds: acetaminophen sodium chloride 0.9% Saline lock IV AND sodium chloride 0.9% AND sodium chloride 0.9% AND sodium chloride 0.9% cyclobenzaprine dextrose OR dextrose glucagon lidocaine metoprolol polyethylene glycol sodium chloride 0.9% Lab Review: Sodium Date Value Ref Range Status 12/06/2022 138 135 - 145 mmol/L Final Potassium, pl Date Value Ref Range Status 12/06/2022 4.3 3.3 - 4.9 mmol/L Final Comment: Hemolyzed; Potassium value may be falsely elevated by as much as 0.3-0.5 mmol/L. Suggest redraw andreanalysis. BUN Date Value Ref Range Status 12/06/2022 12 8 - 25 mg/dL Final Creatinine Date Value Ref Range Status 12/06/2022 0.83 0.60 - 1.10 mg/dL Final Phosphorus, pl Date Value Ref Range Status 12/06/2022 2.3 2.3 - 4.5 mg/dL Final Albumin Date Value Ref Range Status 12/05/2022 3.0 (L) 3.5 - 5.0 g/dL Final Magnesium Date Value Ref Range Status 12/06/2022 2.0 1.4 - 2.5 mg/dL Final Calcium Date Value Ref Range Status 12/06/2022 8.9 8.5 - 10.3 mg/dL Final HDL Date Value Ref Range Status 12/03/2022 45 >=40 mg/dL Final Comment: Interpretive Data Ages < or = 19 years Acceptable: >45 mg/dL Borderline low: 40-45 mg/dL Low: <40 mg/dL Ages > or = 20 years Desirable: >or= 60 mg/dL Low: <40 mg/dL Literature References: 1. Expert Panel on Integrated Guidelines for Cardiovascular Health and Risk Reduction in Children and Adolescents. Pediatrics 2011;128:S213 2. NCEP Expert Panel. Circulation 2004;110:227 Current Interpretive Data was last revised on 2018. ALT Date Value Ref Range Status 12/05/2022 18 7 - 45 Units/L Final AST Date Value Ref Range Status 12/05/2022 36 10 - 45 Units/L Final Comment: Hemolyzed; result may be falsely elevated Alk phos Date Value Ref Range Status 12/05/2022 87 40 - 130 Units/L Final Lab Results Component Value Date HGBA1C 7.3 (H) 12/04/2022 HDL 45 12/03/2022 LDLCALC 116 12/03/2022 CHOL 183 12/03/2022 TRIG 109 12/03/2022 Nursing Assessment: Intake/Output Summary (Last 24 hours) at 12/06/2022 1602 Last data filed at 12/06/2022 1019 Gross per 24 hour Intake 240 ml Output 850 ml Net -610 ml Gastrointestinal Gastrointestinal (WDL): Within Defined Limits Abdomen Inspection: Soft, Nondistended Bowel Sounds (All Quadrants): Active Palpation: Soft Last BM Date: 12/05/22 Passing Flatus: Yes GI Symptoms: None Gastrointestinal Additional Assessments: No Last BM Date: 12/05/22 Junaid Scale Score: 20 Skin Integrity: Rash Dietary Orders (From admission, onward) Start Ordered 12/05/22 0838 Adult Diet Restricted; Consistent Carbohydrate Diet effective now Question Answer Comment ([facility]) Diet type Restricted Diabetic: Consistent Carbohydrate 12/05/22 0837 12/04/22 2100 Bedtime snack At bedtime Comments: If bedtime BG is less than 100mg/dl, give patient a 15 gram carbohydrate snack. 12/04/22 1618 Impression: Pt reports good appetite, states no N/V/D and bowel movement today. Pt unsure of any weight changesand states usual body weight of 160 pounds. Documented po intakes appear good, Pt does not meet criteria for malnutrition. Wt Readings from Last 10 Encounters: 12/04/22 72.3 kg (159 lb 6.3 oz) NUTRITION DIAGNOSIS Nutrition Diagnosis 1: No nutrition issue at this time INTERVENTION Continue to follow po intakes and Lab values. Follow plan of care. GOALS / MONITORING: Goals: Oral intake to meet 75% estimated nutritional needs by next assessment Interventions: Encouragement Monitoring and Evaluation: Appetite, Labs, Plan of care, PO intake, Stool patterns, Weight changes Katie Anne MS, RD, LD [phone] documented in this encounter Nursing Notes * Filiberto Rankin, RN - 12/11/2022 4:14 PM CDT Patient discharged to acute rehab, taken to car via wheelchair by staff attorney. Patient given dischargeinstructions, medication teaching, and follow up information. Patient indicated understanding and had no questions at this time. Vital signs stable, IV and telemetry removed at discharge. documented in this encounter ED Notes * Zia Camara MD - 12/03/2022 4:55 PM CDT HPI Chief Complaint Patient presents with Syncope HPI Patient is a 67-year-old female past medical history of sensorineural hearing loss, AFib on Eliquis, mitral valve regurgitation, congestive heart failure, shingles who is presenting for syncopal events at for the past couple of weeks, worse in the past 3 days. Patient's helps with much of the history. Patient says she does not remember any of the syncopal events. notes that the event started about 3-4 weeks ago, he was seen in [facility] for evaluation. At that time they told her that she was in AFib as well as having mitral regurgitation that was fairly severe. They decided to treat medically at this time with Eliquis, sotalol, and diltiazem for the AFib as well as mitral regurgitation. Heart rate returned to normal rate and rhythm at that time and she was discharged home. notes that there was trouble getting her sotalol and diltiazem filled for approximately 5 days. After these 5 days, the patient is started have falls at home when standing. noted the 1st fall was on Saturday, entered his bedroom and she was on the floor. He picked her up and turned to getthe wheelchair and she fell again hitting her head against the wall. He helped her up again and shefell again and he was not able to hold her. He laid her against the wall. She states that she does not remember these events, patient's does not note any tonic-clonic jerking motions, any tongue biting, or incontinence during the events. Since then she is had another fall on Saturday morning,but nothing this morning. He called his PCP and then his tank builder helper in both of them recommended that he come into the ED for evaluation. also notes that patient was recently started on gabapentin and acyclovir for horse shinglesoutbreak. This was only taken once prior to the events starting. Notes associated dizziness and lightheadedness when standing. Otherwise patient denies any chest pain, shortness of breath, nausea, vomiting, abdominal pain, headache, cough, congestion, rhinorrhea, fever, chills. No dysuria or hematuria. Patient History: Patient Active Problem List Diagnosis Date Noted Syncope and collapse 12/03/2022 Sensorineural hearing loss (SNHL) of both ears 03/28/2015 No past medical history on file. No past surgical history on file. No family history on file. Social History Tobacco Use Smoking status: Not on file Smokeless tobacco: Not on file Substance and Sexual Activity Alcohol use: Not on file Drug use: Not on file Sexual activity: Not on file Social History Social History Narrative Not on file Review of Systems Review of Systems Constitutional: Negative for chills and fever. HENT: Negative for ear pain and sore throat. Eyes: Negative for pain and visual disturbance. Respiratory: Negative for cough and shortness of breath. Cardiovascular: Negative for chest pain and palpitations. Gastrointestinal: Negative for abdominal pain and vomiting. Genitourinary: Negative for dysuria and hematuria. Musculoskeletal: Negative for arthralgias and back pain. Skin: Negative for color change and rash. Neurological: Positive for dizziness, weakness and light-headedness. Negative for seizures and syncope. All other systems reviewed and are negative. Physical Exam ED Triage Vitals Temp Pulse Resp BP SpO2 12/03/22 1505 12/03/22 1505 12/03/22 1505 12/03/22 1505 12/03/22 1505 36.9 ??C (98.4 ??F) 67 18 126/84 98 % Temp src Heart Rate Source Patient Position BP Location FiO2 (%) 12/03/22 1505 12/03/22 1548 12/03/22 1548 12/03/22 1548 -- Tympanic Monitor Lying Left arm Height Height Method Weight Weight Method 12/03/22 1505 12/03/22 1505 12/03/22 1505 12/03/22 1505 1.499 m (4' 11 ) Stated 70.3 kg (155 lb) Stated Physical Exam Vitals and nursing note reviewed. Constitutional: General: She is not in acute distress. Appearance: Normal appearance. She is well-developed. She is not ill-appearing. HENT: Head: Normocephalic and atraumatic. Mouth/Throat: Mouth: Mucous membranes are moist. Pharynx: Oropharynx is clear. Eyes: General: No scleral icterus. Extraocular Movements: Extraocular movements intact. Conjunctiva/sclera: Conjunctivae normal. Pupils: Pupils are equal, round, and reactive to light. Cardiovascular: Rate and Rhythm: Normal rate and regular rhythm. Pulses: Normal pulses. Heart sounds: Normal heart sounds. No murmur heard. Pulmonary: Effort: Pulmonary effort is normal. No respiratory distress. Breath sounds: Normal breath sounds. No wheezing, rhonchi or rales. Abdominal: General: There is no distension. Palpations: Abdomen is soft. Tenderness: There is no abdominal tenderness. There is no guarding or rebound. Musculoskeletal: General: No swelling or tenderness. Cervical back: Neck supple. Right lower leg: No edema. Left lower leg: No edema. Skin: General: Skin is warm and dry. Capillary Refill: Capillary refill takes less than 2 seconds. Neurological: General: No focal deficit present. Mental Status: She is alert and oriented to person, place, and time. Sensory: No sensory deficit. Motor: No weakness. Psychiatric: Mood and Affect: Mood normal. Behavior: Behavior normal. [facility] Medical Decision Making Patient is a 67-year-old female who is presenting for syncopal events at home for the past few weeks, worse in the past 3 days. Was recently seen in [facility] for similar events in which she was diagnosed with AFib as well as having severe mitral regurgitation. She was started on Eliquis, sotalol, and diltiazem at that time which stabilized her heart rate. Patient was also recently diagnosed with shingles and started on acyclovir and gabapentin. Was told that this might cause dizziness.On exam, heart sounds are normal with regular rhythm. Lung sounds are clear bilaterally. Abdomen issoft nontender nondistended. There are good pulses in all 4 extremities, no lower extremity edema. Patient is A&O x4 and able to follow commands without issue. High probability: Orthostatic hypotension, dysrhythmia, ACS, metabolic abnormalities, polypharmacy Moderate probability: Intracranial hematoma, vertebral insufficiency, pulmonary embolism Due to patient's recent history of arrhythmias, electrolyte abnormalities, and recent medication changes, we will do a broad workup. We will get a CBC, BMP, troponins, EKG, chest x-ray for cardiac workup. This will also help to rule out any metabolic abnormalities. We will also get a CT of the headwithout contrast rule out any intracranial hemorrhage due to patient's use of Eliquis for AFib. At this time we do not believe the patient is at high risk for pulmonary embolism due to low pulse, normal blood pressure, and SpO2 in the high 90s when Pleth is good, but could consider if rest of workup is negative. There is a high likelihood that polypharmacy is playing some sort of hole in this situation. Patient is on sotalol, propranolol, gabapentin, acyclovir, and many other medications. All of these alone could cause dizziness and falls. Dispo: Admit, depending on labs whether patient needs floor or ICU. Amount and/or Complexity of Data Reviewed Labs: ordered. Decision-making details documented in ED Course. Radiology: ordered. Decision-making details documented in ED Course. ECG/medicine tests: ordered and independent interpretation performed. Risk OTC drugs. Prescription drug management. Decision regarding hospitalization. Attending Summary of Care ED Course as of 12/03/22 2333 Time: 12/03 7043 Comment: Teaching resident attestation: I, Chico Rodney MD, have discussed the case with the caren resident, examined the patient, and reviewed the history with the patient. Briefly, this patient is a 67 y.o. female here with syncope. She is had multiple episodes. She is been told that she has in abnormal heart valve, likely mitral regurgitation. She is on high-risk medications such as sotalol. Differential diagnosis includes not limited to high concern for valvular problem verses dysrhythmia verses low concern for seizure given the fact the patient comes to quickly after her event. By: Chico Rodney MD Time: 12/04 1747 Comment: QRS is very long, QTC on EKG is 652. We will give 2 g of magnesium IV. By: Zia Camara MD Time: 12/03 1750 Value: CT Head WO Contrast Comment: Bilateral cochlear implants with associated extensive streak artifact throughout the lowerparietal and temporal lobes. Within these limitations, no acute intracranial hemorrhage. By: Zia Camara MD Time: 12/04 1927 Comment: Place p.r.n. for Tylenol and ibuprofen for patient's neck pain. By: Zia Camara MD Time: 12/04 2035 Value: WBC(!): 18.9 Comment: (Reviewed) By: Zai Camara MD Time: 12/03 2036 Value: Basic metabolic panel(!!): Sodium 139 Potassium, pl 2.1(!!) Chloride 74(!!) CO2 >45(!!) Anion gap <20(!) BUN 50(!) Creatinine 1.39(!) Glucose 184 Calcium 10.8(!) Comment: (Reviewed) By: Chico Rodney MD Time: 12/03 2036 Value: Potassium, pl(!!): 2.1 Comment: (Reviewed) By: Zia Camara MD Time: 12/03 2036 Value: Chloride(!!): 74 Comment: (Reviewed) By: Zia Camara MD Time: 12/03 2036 Value: CO2(!!): >45 Comment: (Reviewed) By: Zia Camara MD Time: 12/03 2036 Value: Anion gap(!): <20 Comment: (Reviewed) By: Zia Camara MD Time: 12/03 2036 Comment: Ordering VBG to check patient's PH By: Zia Camara MD Time: 12/03 2112 Value: WBC, ur(!): 21-50 Comment: Will need treatment with antibiotics. Will check for previous cultures before assigning Abx. Likely ceftriaxone since she will be admitted for electrolyte abnormalities. By: Zia Camara MD Time: 12/03 2156 Comment: Spoke w/ [facility]. Said they would accept patient. By: Chico Rodney MD Time: 12/03 2199 Value: Trop I hs(!): 108 Comment: Continuing to elevate. Will get repeat EKG By: Zia Camara MD Syncope and collapse Anticoagulated Prolonged Q-T interval on ECG Hypokalemia Abnormal EKG Zia Camara MD Resident 12/03/22 2333 Cosigned by Anny Gongora MD at 12/03/2022 11:55 PM CDT * Lashae Higuera RN - 12/03/2022 3:38 PM CDT Bed: ED1-07 Expected date: Expected time: Means of arrival: Car Comments: Lashae Higuera RN 12/03/22 1538 * Duarte Fernandez RN - 12/03/2022 3:03 PM CDT Patient here for concerns of syncope each morning, fell 3 times day and did hit her head. On eliquis, no AMS. Patient was at [place] for a week, they told her she had a bad heart valve. Patientgets lightheaded every time she stands. HX Shingles 6 weeks ago, on medications for this still. documented in this encounter Miscellaneous Notes * Provider Query - Jessica Roy MD - 12/11/2022 2:28 PM CDT Clinical Indicators/Treatments: 67 year old female with BMI of 35.5 and weight of 176 lbs. Diet as ordered. Specify the significance of the abnormal BMI (body mass index) and document in the medical record and on the form below. Elevated BMI ___Overweight _X__Obesity ___Morbid (severe) Obesity ___Other, specify below Additional Provider Response: BMI 35.57 BMI definitions per www.NHLBI.nih.gov BMI Weight Status <18.5 Underweight 18.5 to 24.9 Normal/Healthy 25 to 29.9 Overweight 30 to 39.9 Obesity >40 Extreme Obesity (Morbid) Use of terms such as likely, suspected, possible, or probable (associated with a specific diagnosisthat is being evaluated, monitored, or treated as if it exists) are acceptable and can be coded in the inpatient setting when documented at the time of discharge. This documentation will become part of the patient???s medical record. Sincerely, Rufina De La Torre [facility] * Consults, Subsequent - Amarjit Hall MD - 12/11/2022 10:45 AM CDT Brief EP Follow Up Note Mrs. Carroll remains in normal sinus rhythm on amiodarone. She feels well today with no new complaints. QTc today 451 ms. Recommendations: -Ok for discharge on amiodarone 400mg daily for 30 days, then transition to 200mg daily. -Follow up with local tank builder helper Dr. Tio Villavicencio at [facility]; no need for EP specific follow up We appreciate the ability to be involved in this patient's care. If after 5PM or on weekends, please page the appliance parts counter clerk nurse's companion with any questions or concerns. Amarjit Hall MD Scraper Loader Operator, PGY-5 Cosigned by Dawood Arevalo MD PhD at 12/11/2022 11:41 AM CDT * Plan of Care - Filiberto Rankin RN - 12/11/2022 10:30 AM CDT Problem: Activity: Goal: Mobility will improve Outcome: Progressing Problem: Lack of Knowledge: Goal: Understanding of ways to prevent future skin breakdown will improve Outcome: Progressing Goal: Ability to identify appropriate dietary choices will improve Outcome: Progressing Problem: Nutritional: Goal: Dietary intake will improve Outcome: Progressing Goal: Ability to maintain a balanced intake and output will improve Outcome: Progressing Problem: Skin Integrity: Goal: Risk for impaired skin integrity will decrease Outcome: Progressing Goal: Ability to demonstrate warm and dry skin will improve Outcome: Progressing Goal: Circulation will improve to fullest extent possible Outcome: Progressing Problem: Lack of Knowledge: Goal: Knowledge of the prescribed therapeutic regimen will improve Outcome: Progressing Goal: Knowledge of disease or condition will improve Outcome: Progressing Problem: Sensory: Goal: General experience of comfort will improve Outcome: Progressing Problem: Urinary Elimination: Goal: Signs and symptoms of infection will decrease Outcome: Progressing Goal: Ability to reestablish a normal urinary elimination pattern will improve Outcome: Progressing Goal: Complications related to the disease process, condition or treatment will be avoided or minimized Outcome: Progressing Problem: Cardiac: Goal: Will achieve and/or maintain adequate cardiac output Outcome: Progressing Problem: Lack of Knowledge: Goal: Knowledge of disease or condition and prescribed therapeutic regimen will improve Outcome: Progressing Problem: Coping: Goal: Level of anxiety will decrease Outcome: Progressing Problem: Physical Regulation: Goal: Complications related to the disease process, condition or treatment will be avoided or minimized Outcome: Progressing Problem: Safety: Goal: Will remain free from injury Outcome: Progressing Problem: Lack of Knowledge: Goal: Knowledge of disease or condition will improve Outcome: Progressing Problem: Fluid Volume: Goal: Ability to achieve a balanced intake and output will improve Outcome: Progressing Problem: Physical Regulation: Goal: Ability to maintain clinical measurements within normal limits will improve Outcome: Progressing Goal: Will show no signs and symptoms of electrolyte imbalance Outcome: Progressing Problem: Health Behavior: Goal: Understanding of discharge needs will improve Outcome: Progressing Problem: Lack of Knowledge: Goal: Ability to state ways to decrease the risk of falls will improve Outcome: Progressing Problem: Safety: Goal: Will remain free from falls Outcome: Progressing Goal: Will remain free from injury from falls Outcome: Progressing Goal: Will remain free from falls and injury in home environment Outcome: Progressing Problem: Lack of Knowledge: Goal: Ability to develop a pain control plan will improve Outcome: Progressing Goal: Ability to identify pain intensity on a pain scale and rate it consistently will improve Outcome: Progressing Goal: Ability to notify healthcare provider of pain before it becomes unmanageable or unbearable will improve Outcome: Progressing Problem: Medication: Goal: Satisfaction with pain management regimen will improve Outcome: Progressing Problem: Sensory: Goal: Ability to identify factors that increase the pain will improve Outcome: Progressing Goal: Pain level will decrease Outcome: Progressing Problem: Activity: Goal: Ability to return to normal activity level will improve Outcome: Progressing Problem: Lack of Knowledge: Goal: Knowledge of the prescribed therapeutic regimen will improve Outcome: Progressing Problem: Coping: Goal: Ability to cope will improve Outcome: Progressing Problem: Health Behavior: Goal: Identification of resources available to assist in meeting health care needs will improve Outcome: Progressing Problem: Sensory: Goal: Pain level will decrease Outcome: Progressing Goals: Clinical Goals for the Shift: patient will remain hemodynamically stable; patient will remain free from fall injury Summary: Patient participating in care plan goals. Patient verbalized education and is progressing towards goals. * [facility] - Jessica Roy MD - 12/11/2022 8:35 AM CDT Stella Carroll is a 67 y.o. woman with a history of recently diagnosed Afib/flutter on apixaban and sensorineural hearing loss who presented 12/03/22 with 3-4 weeks of syncopal events found to be profoundly hypokalemic with metabolic alkalosis and KARINA requiring MICU admission. Her syncopal episodes werethought to be multifactorial in the setting of profound electrolyte abnormalities, polypharmacy (furosemide, HCTZ, sotalol, propranolol, diltiazem, gabapentin, cyclobenzaprine, alprazolam at home), and UTI. Her electrolytes were aggressively repleted and she was started on CTX for UTI considering her symptoms and leukocytosis. Mrs. Carroll later went into AFlutter RVR vs Afib w/ stable BPs that required multiple doses of metop and amio bolus x2 for conversion to NSR. She was attempted on a transition to dilt; however, asymptomatic and HDS Afib w RVR recurred that subsequently switched to AFlutter 2:1 requiring amio bolus for conversion on 12/06, at which time she was continued on amio drip. EP was consulted, and the patient was transitioned to po amio to continue her load, which she toleratedwithout issue. She was also initiated on metop. On day of discharge, she remains asymptomatic with no recurrence of Afib or flutter. #Atrial fibrillation/flutter Was potentially on sotalol 80 mg BID, propranolol 120 mg daily, and diltiazem 120 mg ER daily. QTc over 600 at presentation. Was in sinus rhythm on presentation; around 4am on 12/05, went into likely AFlutter RVR vs Afib (stable BPs); given metop 5 x3 with no response, then given amio 150 IV bolus x2; subsequently HR improved; on telemetry, seemed to convert back to NSR at 5:53am on 12/05; amio drip was started at 1 around 8am on 12/05, and the patient was later transitioned to dilt. 12/06 early AM, patient again went into asymptomatic and HDS AFib w/ RVR unresponsive to metop IV 5 and po dilt, latertransitioned to Aflutter with 2:1, converted to NSR w/ amio bolus and reinitiation of amio drip. Pthas been in NSR since re-initiation of amio drip on 12/06 and transition to po amio on 12/08. - EP consult - 12/08 Converted amio drip to 400mg TID for load - as of 12/11 after first AM dose, 5860 mg - Discharge rec: amiodarone 400mg daily for 30 days, then transition to 200mg daily - Follow up with local tank builder helper Dr. Tio Villavicencio at [facility]; no need for EP specific follow up - Trended EKGs, final QTc 451 - Metop tartrate 12.5 mg q6 started 12/07 PM, uptitrated 12/08, consolidated to metop XL 50 mg daily 12/09 - Pt was monitored on tele - Electrolytes repleted as below - Home apixaban 5 BID To Do: - Sleep study referral outpatient - 30 day event monitor was provided on discharge, results should be sent to PCP #Hypokalemia, resolved #Hypochloremia, resolved #Metabolic alkalosis, resolved Hypokalemia on presentation to 1.9 with hypochloremia to 75 and metabolic alkalosis. Denies N/V. Suspect etiology is iatrogenic from home diuretics (furosemide, HCTZ). CO2 improved to 29 on 12/07. - Held diuretics while inpatient, discontinue HCTZ on discharge and dose reduce home lasix to 20 mgprn - BMP, Mg, Phos q12 and repleted - phos QID --> with meals To Do: - Check BMP + Mg + Phos in one week #Syncope Suspect in setting of profound electrolyte abnormalities, polypharmacy (furosemide, HCTZ, sotalol, propranolol, diltiazem, gabapentin, cyclobenzaprine, alprazolam at home), and UTI. Initial EKG sinusrhythm with prolonged QTc. TSH, trops unremarkable. CTH w/o acute abnormality (note cochlear implants). TTE in the MICU showed trace-mild MR; normal LA; PASP 30s; otherwise unremarkable. Less likely vasovagal, neurogenic. Orthostatic vitals negative. No recurrence while inpatient. - PT/OT --> acute rehab, pt agreeable - 30 day event monitor as above #KARINA Admit creatinine 1.4 from 0.8 on 11/19/22. Improved with IVF. Suspect 2/2 over- diuresis. Pt w/ mild LE swelling 12/09, reinitiated dose-reduced home lasix with Cr bump from 0.94 to 1.35, subsequently improved with holding diuresis. 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 Outside TTE 11/19/22: LVEF 60-65%, severe MR with mildly calcified MV annulus, mildly enlarged LA, mild TR, PASP 45. Repeat TTE in house showed trace-mild MR; normal LA; PASP 30s; otherwise unremarkable. - holding diuresis in the setting of euvolemia #Leukocytosis #UTI, resolved ED UA with 2+ LE, pyuria, suprapubic pain and dysuria and WBC 18.9. Was started on CTX, but subsequently UCx had insufficient growth. Leukocytosis improved with treatment, then returned; however, OSHrecords in media tab with WBC 10.4 on 11/15/22 and 14.9 on 11/18/22. Note - CXR on admission w/ no consolidation. - Completed abx course of CTX given symptoms and leukocytosis To Do: - Check CBC in one week #DM2 Last A1c 12/04/2022: Hgb A1C 7.3. No home meds. - Carb-consistent diet, accuchecks, scheduled + SSI, hypoglycemia protocol while inpatient To Do: - Follow up w/ PCP #HLD -home simvastatin 80 switched to rosuvastatin 40 mg daily considering drug drug interactions with antiarrhythmics #GERD -home PPI #Mood disorder, NOS -home imipramine 50 mg daily #Post-herpetic neuralgia Had shingles 6 weeks ago treated with Valtrex. - Gabapentin 100 TID - Acetaminophen PRN, lidocaine patches PRN * Plan of Care - Muriel Szymanski RN - 12/10/2022 11:03 PM CDT Problem: Activity: Goal: Mobility will improve Outcome: Progressing Problem: Lack of Knowledge: Goal: Understanding of ways to prevent future skin breakdown will improve Outcome: Progressing Goal: Ability to identify appropriate dietary choices will improve Outcome: Progressing Problem: Nutritional: Goal: Dietary intake will improve Outcome: Progressing Goal: Ability to maintain a balanced intake and output will improve Outcome: Progressing Problem: Skin Integrity: Goal: Risk for impaired skin integrity will decrease Outcome: Progressing Goal: Ability to demonstrate warm and dry skin will improve Outcome: Progressing Goal: Circulation will improve to fullest extent possible Outcome: Progressing Problem: Lack of Knowledge: Goal: Knowledge of the prescribed therapeutic regimen will improve Outcome: Progressing Goal: Knowledge of disease or condition will improve Outcome: Progressing Problem: Sensory: Goal: General experience of comfort will improve Outcome: Progressing Problem: Urinary Elimination: Goal: Signs and symptoms of infection will decrease Outcome: Progressing Goal: Ability to reestablish a normal urinary elimination pattern will improve Outcome: Progressing Goal: Complications related to the disease process, condition or treatment will be avoided or minimized Outcome: Progressing Problem: Cardiac: Goal: Will achieve and/or maintain adequate cardiac output Outcome: Progressing Problem: Lack of Knowledge: Goal: Knowledge of disease or condition and prescribed therapeutic regimen will improve Outcome: Progressing Problem: Coping: Goal: Level of anxiety will decrease Outcome: Progressing Problem: Physical Regulation: Goal: Complications related to the disease process, condition or treatment will be avoided or minimized Outcome: Progressing Problem: Safety: Goal: Will remain free from injury Outcome: Progressing Problem: Lack of Knowledge: Goal: Knowledge of disease or condition will improve Outcome: Progressing Problem: Fluid Volume: Goal: Ability to achieve a balanced intake and output will improve Outcome: Progressing Problem: Physical Regulation: Goal: Ability to maintain clinical measurements within normal limits will improve Outcome: Progressing Goal: Will show no signs and symptoms of electrolyte imbalance Outcome: Progressing Problem: Health Behavior: Goal: Understanding of discharge needs will improve Outcome: Progressing Problem: Lack of Knowledge: Goal: Ability to state ways to decrease the risk of falls will improve Outcome: Progressing Problem: Safety: Goal: Will remain free from falls Outcome: Progressing Goal: Will remain free from injury from falls Outcome: Progressing Goal: Will remain free from falls and injury in home environment Outcome: Progressing Problem: Lack of Knowledge: Goal: Ability to develop a pain control plan will improve Outcome: Progressing Goal: Ability to identify pain intensity on a pain scale and rate it consistently will improve Outcome: Progressing Goal: Ability to notify healthcare provider of pain before it becomes unmanageable or unbearable will improve Outcome: Progressing Problem: Medication: Goal: Satisfaction with pain management regimen will improve Outcome: Progressing Problem: Sensory: Goal: Ability to identify factors that increase the pain will improve Outcome: Progressing Goal: Pain level will decrease Outcome: Progressing Problem: Activity: Goal: Ability to return to normal activity level will improve Outcome: Progressing Problem: Lack of Knowledge: Goal: Knowledge of the prescribed therapeutic regimen will improve Outcome: Progressing Problem: Coping: Goal: Ability to cope will improve Outcome: Progressing Problem: Health Behavior: Goal: Identification of resources available to assist in meeting health care needs will improve Outcome: Progressing Problem: Sensory: Goal: Pain level will decrease Outcome: Progressing Goals: Clinical Goals for the Shift: promote sleep hygeine;pain control Summary: .Patient participating in care plan goals. Patient verbalized education and is progressingtowards goals. * Plan of Care - Filiberto Rankin RN - 12/10/2022 5:34 PM CDT Problem: Activity: Goal: Mobility will improve Outcome: Progressing Problem: Lack of Knowledge: Goal: Understanding of ways to prevent future skin breakdown will improve Outcome: Progressing Goal: Ability to identify appropriate dietary choices will improve Outcome: Progressing Problem: Nutritional: Goal: Dietary intake will improve Outcome: Progressing Goal: Ability to maintain a balanced intake and output will improve Outcome: Progressing Problem: Skin Integrity: Goal: Risk for impaired skin integrity will decrease Outcome: Progressing Goal: Ability to demonstrate warm and dry skin will improve Outcome: Progressing Goal: Circulation will improve to fullest extent possible Outcome: Progressing Problem: Lack of Knowledge: Goal: Knowledge of the prescribed therapeutic regimen will improve Outcome: Progressing Goal: Knowledge of disease or condition will improve Outcome: Progressing Problem: Sensory: Goal: General experience of comfort will improve Outcome: Progressing Problem: Urinary Elimination: Goal: Signs and symptoms of infection will decrease Outcome: Progressing Goal: Ability to reestablish a normal urinary elimination pattern will improve Outcome: Progressing Goal: Complications related to the disease process, condition or treatment will be avoided or minimized Outcome: Progressing Problem: Cardiac: Goal: Will achieve and/or maintain adequate cardiac output Outcome: Progressing Problem: Lack of Knowledge: Goal: Knowledge of disease or condition and prescribed therapeutic regimen will improve Outcome: Progressing Problem: Coping: Goal: Level of anxiety will decrease Outcome: Progressing Problem: Physical Regulation: Goal: Complications related to the disease process, condition or treatment will be avoided or minimized Outcome: Progressing Problem: Safety: Goal: Will remain free from injury Outcome: Progressing Problem: Lack of Knowledge: Goal: Knowledge of disease or condition will improve Outcome: Progressing Problem: Fluid Volume: Goal: Ability to achieve a balanced intake and output will improve Outcome: Progressing Problem: Physical Regulation: Goal: Ability to maintain clinical measurements within normal limits will improve Outcome: Progressing Goal: Will show no signs and symptoms of electrolyte imbalance Outcome: Progressing Problem: Health Behavior: Goal: Understanding of discharge needs will improve Outcome: Progressing Problem: Lack of Knowledge: Goal: Ability to state ways to decrease the risk of falls will improve Outcome: Progressing Problem: Safety: Goal: Will remain free from falls Outcome: Progressing Goal: Will remain free from injury from falls Outcome: Progressing Goal: Will remain free from falls and injury in home environment Outcome: Progressing Problem: Lack of Knowledge: Goal: Ability to develop a pain control plan will improve Outcome: Progressing Goal: Ability to identify pain intensity on a pain scale and rate it consistently will improve Outcome: Progressing Goal: Ability to notify healthcare provider of pain before it becomes unmanageable or unbearable will improve Outcome: Progressing Problem: Medication: Goal: Satisfaction with pain management regimen will improve Outcome: Progressing Problem: Sensory: Goal: Ability to identify factors that increase the pain will improve Outcome: Progressing Goal: Pain level will decrease Outcome: Progressing Problem: Activity: Goal: Ability to return to normal activity level will improve Outcome: Progressing Problem: Lack of Knowledge: Goal: Knowledge of the prescribed therapeutic regimen will improve Outcome: Progressing Problem: Coping: Goal: Ability to cope will improve Outcome: Progressing Problem: Health Behavior: Goal: Identification of resources available to assist in meeting health care needs will improve Outcome: Progressing Problem: Sensory: Goal: Pain level will decrease Outcome: Progressing Goals: Clinical Goals for the Shift: patient will remain hemodynamically stable; patient will remain free from fall injury Summary: Patient participating in care plan goals. Patient verbalized education and is progressing towards goals. * Consults, Larry - Amarjit Hall MD - 12/10/2022 12:50 PM CDT Brief EP Follow Up Note Mrs. Carroll has been well over the weekend and remains in normal sinus rhythm on amiodarone. She feels well today with no new complaints. Recommendations: -Continue amiodarone 400mg TID today -Daily ECG for QTc monitoring (pending) -Anticipate transitioning tomorrow to amiodarone 400mg BID for 7 days, then 400mg daily thereafter -Can likely discharge from EP perspective tomorrow -Follow up with local tank builder helper Dr. Tio Villavicencio at [facility]; no need for EP specific follow up We appreciate the ability to be involved in this patient's care. If after 5PM or on weekends, please page the appliance parts counter clerk nurse's companion with any questions or concerns. Amarjit Hall MD Scraper Loader Operator, PGY-5 Cosigned by Dawood Arevalo MD PhD at 12/11/2022 11:41 AM CDT * Plan of Care - Elizabeth Diaz RN - 12/10/2022 12:41 PM CDT CM contacted [place] business liaison manager, [facility] [phone] to check on status of admissions. [facility] requests updated PT/OT notes- CM updated therapy here. Per [facility], Amio load and need EP to clear. ADD 12/11. CM will continue to follow for referrals and discharge planning. THERESA Hameed, RN, Transition Assistant * Plan of Care - Muriel Szymanski RN - 12/09/2022 10:46 PM CDT Problem: Activity: Goal: Mobility will improve Outcome: Progressing Problem: Lack of Knowledge: Goal: Understanding of ways to prevent future skin breakdown will improve Outcome: Progressing Goal: Ability to identify appropriate dietary choices will improve Outcome: Progressing Problem: Nutritional: Goal: Dietary intake will improve Outcome: Progressing Goal: Ability to maintain a balanced intake and output will improve Outcome: Progressing Problem: Skin Integrity: Goal: Risk for impaired skin integrity will decrease Outcome: Progressing Goal: Ability to demonstrate warm and dry skin will improve Outcome: Progressing Goal: Circulation will improve to fullest extent possible Outcome: Progressing Problem: Lack of Knowledge: Goal: Knowledge of the prescribed therapeutic regimen will improve Outcome: Progressing Goal: Knowledge of disease or condition will improve Outcome: Progressing Problem: Sensory: Goal: General experience of comfort will improve Outcome: Progressing Problem: Urinary Elimination: Goal: Signs and symptoms of infection will decrease Outcome: Progressing Goal: Ability to reestablish a normal urinary elimination pattern will improve Outcome: Progressing Goal: Complications related to the disease process, condition or treatment will be avoided or minimized Outcome: Progressing Problem: Cardiac: Goal: Will achieve and/or maintain adequate cardiac output Outcome: Progressing Problem: Lack of Knowledge: Goal: Knowledge of disease or condition and prescribed therapeutic regimen will improve Outcome: Progressing Problem: Coping: Goal: Level of anxiety will decrease Outcome: Progressing Problem: Physical Regulation: Goal: Complications related to the disease process, condition or treatment will be avoided or minimized Outcome: Progressing Problem: Safety: Goal: Will remain free from injury Outcome: Progressing Problem: Lack of Knowledge: Goal: Knowledge of disease or condition will improve Outcome: Progressing Problem: Fluid Volume: Goal: Ability to achieve a balanced intake and output will improve Outcome: Progressing Problem: Physical Regulation: Goal: Ability to maintain clinical measurements within normal limits will improve Outcome: Progressing Goal: Will show no signs and symptoms of electrolyte imbalance Outcome: Progressing Problem: Health Behavior: Goal: Understanding of discharge needs will improve Outcome: Progressing Problem: Lack of Knowledge: Goal: Ability to state ways to decrease the risk of falls will improve Outcome: Progressing Problem: Safety: Goal: Will remain free from falls Outcome: Progressing Goal: Will remain free from injury from falls Outcome: Progressing Goal: Will remain free from falls and injury in home environment Outcome: Progressing Problem: Lack of Knowledge: Goal: Ability to develop a pain control plan will improve Outcome: Progressing Goal: Ability to identify pain intensity on a pain scale and rate it consistently will improve Outcome: Progressing Goal: Ability to notify healthcare provider of pain before it becomes unmanageable or unbearable will improve Outcome: Progressing Problem: Medication: Goal: Satisfaction with pain management regimen will improve Outcome: Progressing Problem: Sensory: Goal: Ability to identify factors that increase the pain will improve Outcome: Progressing Goal: Pain level will decrease Outcome: Progressing Problem: Activity: Goal: Ability to return to normal activity level will improve Outcome: Progressing Problem: Lack of Knowledge: Goal: Knowledge of the prescribed therapeutic regimen will improve Outcome: Progressing Problem: Coping: Goal: Ability to cope will improve Outcome: Progressing Problem: Health Behavior: Goal: Identification of resources available to assist in meeting health care needs will improve Outcome: Progressing Problem: Sensory: Goal: Pain level will decrease Outcome: Progressing Goals: Clinical Goals for the Shift: pt will remain HDS Summary: Patient participating in care plan goals. Patient verbalized education and is progressing towards goals. * Plan of Care - Matt Gold RN - 12/09/2022 11:32 AM CDT Problem: Activity: Goal: Mobility will improve Outcome: Progressing Problem: Lack of Knowledge: Goal: Understanding of ways to prevent future skin breakdown will improve Outcome: Progressing Goal: Ability to identify appropriate dietary choices will improve Outcome: Progressing Problem: Nutritional: Goal: Dietary intake will improve Outcome: Progressing Goal: Ability to maintain a balanced intake and output will improve Outcome: Progressing Problem: Skin Integrity: Goal: Risk for impaired skin integrity will decrease Outcome: Progressing Goal: Ability to demonstrate warm and dry skin will improve Outcome: Progressing Goal: Circulation will improve to fullest extent possible Outcome: Progressing Problem: Lack of Knowledge: Goal: Knowledge of the prescribed therapeutic regimen will improve Outcome: Progressing Goal: Knowledge of disease or condition will improve Outcome: Progressing Problem: Sensory: Goal: General experience of comfort will improve Outcome: Progressing Problem: Urinary Elimination: Goal: Signs and symptoms of infection will decrease Outcome: Progressing Goal: Ability to reestablish a normal urinary elimination pattern will improve Outcome: Progressing Goal: Complications related to the disease process, condition or treatment will be avoided or minimized Outcome: Progressing Problem: Cardiac: Goal: Will achieve and/or maintain adequate cardiac output Outcome: Progressing Problem: Lack of Knowledge: Goal: Knowledge of disease or condition and prescribed therapeutic regimen will improve Outcome: Progressing Problem: Coping: Goal: Level of anxiety will decrease Outcome: Progressing Problem: Physical Regulation: Goal: Complications related to the disease process, condition or treatment will be avoided or minimized Outcome: Progressing Problem: Safety: Goal: Will remain free from injury Outcome: Progressing Problem: Lack of Knowledge: Goal: Knowledge of disease or condition will improve Outcome: Progressing Problem: Fluid Volume: Goal: Ability to achieve a balanced intake and output will improve Outcome: Progressing Problem: Physical Regulation: Goal: Ability to maintain clinical measurements within normal limits will improve Outcome: Progressing Goal: Will show no signs and symptoms of electrolyte imbalance Outcome: Progressing Problem: Health Behavior: Goal: Understanding of discharge needs will improve Outcome: Progressing Problem: Lack of Knowledge: Goal: Ability to state ways to decrease the risk of falls will improve Outcome: Progressing Problem: Safety: Goal: Will remain free from falls Outcome: Progressing Goal: Will remain free from injury from falls Outcome: Progressing Goal: Will remain free from falls and injury in home environment Outcome: Progressing Problem: Lack of Knowledge: Goal: Ability to develop a pain control plan will improve Outcome: Progressing Goal: Ability to identify pain intensity on a pain scale and rate it consistently will improve Outcome: Progressing Goal: Ability to notify healthcare provider of pain before it becomes unmanageable or unbearable will improve Outcome: Progressing Problem: Medication: Goal: Satisfaction with pain management regimen will improve Outcome: Progressing Problem: Sensory: Goal: Ability to identify factors that increase the pain will improve Outcome: Progressing Goal: Pain level will decrease Outcome: Progressing Problem: Activity: Goal: Ability to return to normal activity level will improve Outcome: Progressing Problem: Lack of Knowledge: Goal: Knowledge of the prescribed therapeutic regimen will improve Outcome: Progressing Problem: Coping: Goal: Ability to cope will improve Outcome: Progressing Problem: Health Behavior: Goal: Identification of resources available to assist in meeting health care needs will improve Outcome: Progressing Problem: Sensory: Goal: Pain level will decrease Outcome: Progressing Goals: Clinical Goals for the Shift: pt will remain hemodynamically stable/remain free from falls Summary: Patient participating in care plan goals. Patient verbalized education and is progressing towards goals. * Plan of Care - Muriel Szymanski RN - 12/08/2022 11:23 PM CDT Problem: Activity: Goal: Mobility will improve Outcome: Progressing Problem: Lack of Knowledge: Goal: Understanding of ways to prevent future skin breakdown will improve Outcome: Progressing Goal: Ability to identify appropriate dietary choices will improve Outcome: Progressing Problem: Nutritional: Goal: Dietary intake will improve Outcome: Progressing Goal: Ability to maintain a balanced intake and output will improve Outcome: Progressing Problem: Skin Integrity: Goal: Risk for impaired skin integrity will decrease Outcome: Progressing Goal: Ability to demonstrate warm and dry skin will improve Outcome: Progressing Goal: Circulation will improve to fullest extent possible Outcome: Progressing Problem: Lack of Knowledge: Goal: Knowledge of the prescribed therapeutic regimen will improve Outcome: Progressing Goal: Knowledge of disease or condition will improve Outcome: Progressing Problem: Sensory: Goal: General experience of comfort will improve Outcome: Progressing Problem: Urinary Elimination: Goal: Signs and symptoms of infection will decrease Outcome: Progressing Goal: Ability to reestablish a normal urinary elimination pattern will improve Outcome: Progressing Goal: Complications related to the disease process, condition or treatment will be avoided or minimized Outcome: Progressing Problem: Cardiac: Goal: Will achieve and/or maintain adequate cardiac output Outcome: Progressing Problem: Lack of Knowledge: Goal: Knowledge of disease or condition and prescribed therapeutic regimen will improve Outcome: Progressing Problem: Coping: Goal: Level of anxiety will decrease Outcome: Progressing Problem: Physical Regulation: Goal: Complications related to the disease process, condition or treatment will be avoided or minimized Outcome: Progressing Problem: Safety: Goal: Will remain free from injury Outcome: Progressing Problem: Lack of Knowledge: Goal: Knowledge of disease or condition will improve Outcome: Progressing Problem: Fluid Volume: Goal: Ability to achieve a balanced intake and output will improve Outcome: Progressing Problem: Physical Regulation: Goal: Ability to maintain clinical measurements within normal limits will improve Outcome: Progressing Goal: Will show no signs and symptoms of electrolyte imbalance Outcome: Progressing Problem: Health Behavior: Goal: Understanding of discharge needs will improve Outcome: Progressing Problem: Lack of Knowledge: Goal: Ability to state ways to decrease the risk of falls will improve Outcome: Progressing Problem: Safety: Goal: Will remain free from falls Outcome: Progressing Goal: Will remain free from injury from falls Outcome: Progressing Goal: Will remain free from falls and injury in home environment Outcome: Progressing Problem: Lack of Knowledge: Goal: Ability to develop a pain control plan will improve Outcome: Progressing Goal: Ability to identify pain intensity on a pain scale and rate it consistently will improve Outcome: Progressing Goal: Ability to notify healthcare provider of pain before it becomes unmanageable or unbearable will improve Outcome: Progressing Problem: Medication: Goal: Satisfaction with pain management regimen will improve Outcome: Progressing Problem: Sensory: Goal: Ability to identify factors that increase the pain will improve Outcome: Progressing Goal: Pain level will decrease Outcome: Progressing Problem: Activity: Goal: Ability to return to normal activity level will improve Outcome: Progressing Problem: Lack of Knowledge: Goal: Knowledge of the prescribed therapeutic regimen will improve Outcome: Progressing Problem: Coping: Goal: Ability to cope will improve Outcome: Progressing Problem: Health Behavior: Goal: Identification of resources available to assist in meeting health care needs will improve Outcome: Progressing Problem: Sensory: Goal: Pain level will decrease Outcome: Progressing Goals: Clinical Goals for the Shift: VSS;sleep hygiene;pain control Summary: .Patient participating in care plan goals. Patient verbalized education and is progressingtowards goals. * Plan of Care - Matt Gold RN - 12/08/2022 3:16 PM CDT Problem: Activity: Goal: Mobility will improve Outcome: Progressing Problem: Nutritional: Goal: Dietary intake will improve Outcome: Progressing Goal: Ability to maintain a balanced intake and output will improve Outcome: Progressing Problem: Lack of Knowledge: Goal: Knowledge of the prescribed therapeutic regimen will improve Outcome: Progressing Goal: Knowledge of disease or condition will improve Outcome: Progressing Problem: Sensory: Goal: General experience of comfort will improve Outcome: Progressing Problem: Urinary Elimination: Goal: Signs and symptoms of infection will decrease Outcome: Progressing Goal: Ability to reestablish a normal urinary elimination pattern will improve Outcome: Progressing Goal: Complications related to the disease process, condition or treatment will be avoided or minimized Outcome: Progressing Problem: Cardiac: Goal: Will achieve and/or maintain adequate cardiac output Outcome: Progressing Problem: Lack of Knowledge: Goal: Knowledge of disease or condition and prescribed therapeutic regimen will improve Outcome: Progressing Problem: Coping: Goal: Level of anxiety will decrease Outcome: Progressing Problem: Physical Regulation: Goal: Complications related to the disease process, condition or treatment will be avoided or minimized Outcome: Progressing Problem: Safety: Goal: Will remain free from injury Outcome: Progressing Problem: Lack of Knowledge: Goal: Knowledge of disease or condition will improve Outcome: Progressing Problem: Fluid Volume: Goal: Ability to achieve a balanced intake and output will improve Outcome: Progressing Problem: Physical Regulation: Goal: Ability to maintain clinical measurements within normal limits will improve Outcome: Progressing Goal: Will show no signs and symptoms of electrolyte imbalance Outcome: Progressing Problem: Health Behavior: Goal: Understanding of discharge needs will improve Outcome: Progressing Problem: Lack of Knowledge: Goal: Ability to state ways to decrease the risk of falls will improve Outcome: Progressing Problem: Safety: Goal: Will remain free from falls Outcome: Progressing Goal: Will remain free from injury from falls Outcome: Progressing Goal: Will remain free from falls and injury in home environment Outcome: Progressing Problem: Lack of Knowledge: Goal: Ability to develop a pain control plan will improve Outcome: Progressing Goal: Ability to identify pain intensity on a pain scale and rate it consistently will improve Outcome: Progressing Goal: Ability to notify healthcare provider of pain before it becomes unmanageable or unbearable will improve Outcome: Progressing Problem: Medication: Goal: Satisfaction with pain management regimen will improve Outcome: Progressing Problem: Sensory: Goal: Ability to identify factors that increase the pain will improve Outcome: Progressing Goal: Pain level will decrease Outcome: Progressing Problem: Activity: Goal: Ability to return to normal activity level will improve Outcome: Progressing Problem: Lack of Knowledge: Goal: Knowledge of the prescribed therapeutic regimen will improve Outcome: Progressing Problem: Coping: Goal: Ability to cope will improve Outcome: Progressing Problem: Health Behavior: Goal: Identification of resources available to assist in meeting health care needs will improve Outcome: Progressing Problem: Sensory: Goal: Pain level will decrease Outcome: Progressing Goals: Clinical Goals for the Shift: pt will remain hemodynamically stable/remain free from falls Summary: Patient participating in care plan goals. Patient verbalized education and is progressing towards goals. * Plan of Care - Alisson Hull RN - 12/08/2022 12:07 PM CDT Discharge plan discussed with provider (maybe 1-2 days) Patient is not medically ready for discharge today. CM will continue to follow for discharge needs. For weekend assistance, please contact the on-call weekend disease case manager. CM has s/w [place] [phone] who was made aware of the above. * Plan of Care - Adriana Alvarenga RN - 12/07/2022 7:12 PM CDT Goals: Clinical Goals for the Shift: with will remain hemodinamycally stable and be free from falls/injury. Problem: Activity: Goal: Mobility will improve Outcome: Progressing Problem: Lack of Knowledge: Goal: Understanding of ways to prevent future skin breakdown will improve Outcome: Progressing Goal: Ability to identify appropriate dietary choices will improve Outcome: Progressing Problem: Nutritional: Goal: Dietary intake will improve Outcome: Progressing Goal: Ability to maintain a balanced intake and output will improve Outcome: Progressing Problem: Skin Integrity: Goal: Risk for impaired skin integrity will decrease Outcome: Progressing Goal: Ability to demonstrate warm and dry skin will improve Outcome: Progressing Goal: Circulation will improve to fullest extent possible Outcome: Progressing Problem: Lack of Knowledge: Goal: Knowledge of the prescribed therapeutic regimen will improve Outcome: Progressing Goal: Knowledge of disease or condition will improve Outcome: Progressing Problem: Sensory: Goal: General experience of comfort will improve Outcome: Progressing Problem: Urinary Elimination: Goal: Signs and symptoms of infection will decrease Outcome: Progressing Goal: Ability to reestablish a normal urinary elimination pattern will improve Outcome: Progressing Goal: Complications related to the disease process, condition or treatment will be avoided or minimized Outcome: Progressing Problem: Cardiac: Goal: Will achieve and/or maintain adequate cardiac output Outcome: Progressing Problem: Lack of Knowledge: Goal: Knowledge of disease or condition and prescribed therapeutic regimen will improve Outcome: Progressing Problem: Coping: Goal: Level of anxiety will decrease Outcome: Progressing Problem: Physical Regulation: Goal: Complications related to the disease process, condition or treatment will be avoided or minimized Outcome: Progressing Problem: Safety: Goal: Will remain free from injury Outcome: Progressing Problem: Lack of Knowledge: Goal: Knowledge of disease or condition will improve Outcome: Progressing Problem: Fluid Volume: Goal: Ability to achieve a balanced intake and output will improve Outcome: Progressing Problem: Physical Regulation: Goal: Ability to maintain clinical measurements within normal limits will improve Outcome: Progressing Goal: Will show no signs and symptoms of electrolyte imbalance Outcome: Progressing Problem: Health Behavior: Goal: Understanding of discharge needs will improve Outcome: Progressing Problem: Lack of Knowledge: Goal: Ability to state ways to decrease the risk of falls will improve Outcome: Progressing Problem: Safety: Goal: Will remain free from falls Outcome: Progressing Goal: Will remain free from injury from falls Outcome: Progressing Goal: Will remain free from falls and injury in home environment Outcome: Progressing Problem: Lack of Knowledge: Goal: Ability to develop a pain control plan will improve Outcome: Progressing Goal: Ability to identify pain intensity on a pain scale and rate it consistently will improve Outcome: Progressing Goal: Ability to notify healthcare provider of pain before it becomes unmanageable or unbearable will improve Outcome: Progressing Problem: Medication: Goal: Satisfaction with pain management regimen will improve Outcome: Progressing Problem: Sensory: Goal: Ability to identify factors that increase the pain will improve Outcome: Progressing Goal: Pain level will decrease Outcome: Progressing Problem: Activity: Goal: Ability to return to normal activity level will improve Outcome: Progressing Problem: Lack of Knowledge: Goal: Knowledge of the prescribed therapeutic regimen will improve Outcome: Progressing Problem: Coping: Goal: Ability to cope will improve Outcome: Progressing Problem: Health Behavior: Goal: Identification of resources available to assist in meeting health care needs will improve Outcome: Progressing Problem: Sensory: Goal: Pain level will decrease Outcome: Progressing Summary: Assessment of patient???s baseline is established at the beginning of the shift in flowsheets. Patient reassessed per order, unexpected findings and/or deviations from baseline are captured in flowsheets. Frequent safety checks and comfort rounds provided. Orders and/or nursing care completed as indicated. Patient monitored for response to interventions and treatments as documented in flowsheets. Patient participating in care plan goals. Patient verbalized education and is progressing towards goals. * Plan of Care - Sakina Brower RN - 12/07/2022 3:36 PM CDT Per Medical Chart/Rounds/IDR: Patient is not medically ready for discharge ADD: predicts patient could discharge Sat or Saturday. Still depending on EP recs. Plan & referrals made/in place: Patient was accepted by [facility]. And [facility] re[facility].CM spoke with patient and she would like to go to [facility]. [facility] business liaison manager spoke to patient regarding the facilit. Support following discharge: facility Transportation: TBD F/U Appointments: Faciltiy Patient's Identified Problem/Goal Problem: Ensure acute medical needs are met and that patient has a safe discharge plan. Goal: Secure a discharge plan that patient/family are agreeable with and ensure patient has continuum of care. Patient and/or family are agreeable with plan. nightclub manager will continue to follow and assist with discharge planning as needed. If any further discharge needs arise, please contact the covering disease case manager. Plan for weekend discharge: Per Liaison Divine from [facility]. Patient could be discharged to facility over the weekend. Call [phone] * Plan of Care - Renetta Mahan RN - 12/07/2022 7:49 AM CDT Problem: Activity: Goal: Mobility will improve Outcome: Progressing Problem: Lack of Knowledge: Goal: Understanding of ways to prevent future skin breakdown will improve Outcome: Progressing Goal: Ability to identify appropriate dietary choices will improve Outcome: Progressing Problem: Nutritional: Goal: Dietary intake will improve Outcome: Progressing Goal: Ability to maintain a balanced intake and output will improve Outcome: Progressing Problem: Skin Integrity: Goal: Risk for impaired skin integrity will decrease Outcome: Progressing Goal: Circulation will improve to fullest extent possible Outcome: Progressing Problem: Lack of Knowledge: Goal: Knowledge of the prescribed therapeutic regimen will improve Outcome: Progressing Goal: Knowledge of disease or condition will improve Outcome: Progressing Goals: Clinical Goals for the Shift: Pt will remain hemodynamically stable. Summary: patient agrees with plan of care * Plan of Care - Adriana Alvarenga RN - 12/06/2022 8:30 PM CDT Goals: Clinical Goals for the Shift: Pt will remain hemodynamically stable. And patient will have decreased episodes of irregular heart rhythms throughout the shift. Problem: Activity: Goal: Mobility will improve Outcome: Progressing Problem: Lack of Knowledge: Goal: Understanding of ways to prevent future skin breakdown will improve Outcome: Progressing Goal: Ability to identify appropriate dietary choices will improve Outcome: Progressing Problem: Nutritional: Goal: Dietary intake will improve Outcome: Progressing Goal: Ability to maintain a balanced intake and output will improve Outcome: Progressing Problem: Skin Integrity: Goal: Risk for impaired skin integrity will decrease Outcome: Progressing Goal: Ability to demonstrate warm and dry skin will improve Outcome: Progressing Goal: Circulation will improve to fullest extent possible Outcome: Progressing Problem: Lack of Knowledge: Goal: Knowledge of the prescribed therapeutic regimen will improve Outcome: Progressing Goal: Knowledge of disease or condition will improve Outcome: Progressing Problem: Sensory: Goal: General experience of comfort will improve Outcome: Progressing Problem: Urinary Elimination: Goal: Signs and symptoms of infection will decrease Outcome: Progressing Goal: Ability to reestablish a normal urinary elimination pattern will improve Outcome: Progressing Goal: Complications related to the disease process, condition or treatment will be avoided or minimized Outcome: Progressing Problem: Cardiac: Goal: Will achieve and/or maintain adequate cardiac output Outcome: Progressing Problem: Lack of Knowledge: Goal: Knowledge of disease or condition and prescribed therapeutic regimen will improve Outcome: Progressing Problem: Coping: Goal: Level of anxiety will decrease Outcome: Progressing Problem: Physical Regulation: Goal: Complications related to the disease process, condition or treatment will be avoided or minimized Outcome: Progressing Problem: Safety: Goal: Will remain free from injury Outcome: Progressing Problem: Lack of Knowledge: Goal: Knowledge of disease or condition will improve Outcome: Progressing Problem: Fluid Volume: Goal: Ability to achieve a balanced intake and output will improve Outcome: Progressing Problem: Physical Regulation: Goal: Ability to maintain clinical measurements within normal limits will improve Outcome: Progressing Goal: Will show no signs and symptoms of electrolyte imbalance Outcome: Progressing Problem: Health Behavior: Goal: Understanding of discharge needs will improve Outcome: Progressing Problem: Lack of Knowledge: Goal: Ability to state ways to decrease the risk of falls will improve Outcome: Progressing Problem: Safety: Goal: Will remain free from falls Outcome: Progressing Goal: Will remain free from injury from falls Outcome: Progressing Goal: Will remain free from falls and injury in home environment Outcome: Progressing Summary: Assessment of patient???s baseline is established at the beginning of the shift in flowsheets. Patient reassessed per order, unexpected findings and/or deviations from baseline are captured in flowsheets. Frequent safety checks and comfort rounds provided. Orders and/or nursing care completed as indicated. Patient monitored for response to interventions and treatments as documented in flowsheets. Patient participating in care plan goals. Patient verbalized education and is progressing towards goals. * Plan of Care - Renetta Mahan RN - 12/06/2022 12:40 PM CDT Problem: Activity: Goal: Mobility will improve Outcome: Progressing Problem: Lack of Knowledge: Goal: Understanding of ways to prevent future skin breakdown will improve Outcome: Progressing Goal: Ability to identify appropriate dietary choices will improve Outcome: Progressing Problem: Nutritional: Goal: Dietary intake will improve Outcome: Progressing Goal: Ability to maintain a balanced intake and output will improve Outcome: Progressing Problem: Skin Integrity: Goal: Ability to demonstrate warm and dry skin will improve Outcome: Progressing Goal: Circulation will improve to fullest extent possible Outcome: Progressing Goals: Clinical Goals for the Shift: vs labs Summary: patient and family agrees with plan of care * Plan of Care - Lucy Harley RN - 12/06/2022 10:44 AM CDT Rounds with MD, disease case manager, social work, & charge nurse Medical chart reviewed for medical necessity. Report per rounds: The patient is not medically stable to discharge today. May need RADHA ADD: 12/10spouse Referrals made: na Support following discharge: spouse Transportation: spouse Patient's Identified Problem/Goal Problem: Ensure acute medical needs are met and that patient has a safe discharge plan. Goal: Secure a discharge plan that patient/family are agreeable with and ensure patient has continuum of care. Patient and family are agreeable with plan. nightclub manager will continue to follow and assist with discharge planning as needed * Plan of Care - Elizabeth Sabillon RN - 12/05/2022 8:56 PM CDT Goals: Clinical Goals for the Shift: vs labs Summary: Problem: Activity: Goal: Mobility will improve Outcome: Progressing Problem: Lack of Knowledge: Goal: Understanding of ways to prevent future skin breakdown will improve Outcome: Progressing Goal: Ability to identify appropriate dietary choices will improve Outcome: Progressing Problem: Nutritional: Goal: Dietary intake will improve Outcome: Progressing Goal: Ability to maintain a balanced intake and output will improve Outcome: Progressing Problem: Skin Integrity: Goal: Risk for impaired skin integrity will decrease Outcome: Progressing Goal: Ability to demonstrate warm and dry skin will improve Outcome: Progressing Goal: Circulation will improve to fullest extent possible Outcome: Progressing Problem: Lack of Knowledge: Goal: Knowledge of the prescribed therapeutic regimen will improve Outcome: Progressing Goal: Knowledge of disease or condition will improve Outcome: Progressing Problem: Sensory: Goal: General experience of comfort will improve Outcome: Progressing Problem: Urinary Elimination: Goal: Signs and symptoms of infection will decrease Outcome: Progressing Goal: Ability to reestablish a normal urinary elimination pattern will improve Outcome: Progressing Goal: Complications related to the disease process, condition or treatment will be avoided or minimized Outcome: Progressing Problem: Cardiac: Goal: Will achieve and/or maintain adequate cardiac output Outcome: Progressing Problem: Lack of Knowledge: Goal: Knowledge of disease or condition and prescribed therapeutic regimen will improve Outcome: Progressing Problem: Coping: Goal: Level of anxiety will decrease Outcome: Progressing Problem: Physical Regulation: Goal: Complications related to the disease process, condition or treatment will be avoided or minimized Outcome: Progressing Problem: Safety: Goal: Will remain free from injury Outcome: Progressing Problem: Lack of Knowledge: Goal: Knowledge of disease or condition will improve Outcome: Progressing Problem: Fluid Volume: Goal: Ability to achieve a balanced intake and output will improve Outcome: Progressing Problem: Physical Regulation: Goal: Ability to maintain clinical measurements within normal limits will improve Outcome: Progressing Goal: Will show no signs and symptoms of electrolyte imbalance Outcome: Progressing Problem: Health Behavior: Goal: Understanding of discharge needs will improve Outcome: Progressing Problem: Lack of Knowledge: Goal: Ability to state ways to decrease the risk of falls will improve Outcome: Progressing Problem: Safety: Goal: Will remain free from falls Outcome: Progressing Goal: Will remain free from injury from falls Outcome: Progressing Goal: Will remain free from falls and injury in home environment Outcome: Progressing * [facility]IN Note - Lucy Harley RN - 12/05/2022 4:36 PM CDT Images from the original note were not included. Patient Information: OT Eval and Treat Last 72 Hours OT Evaluation Row Name 12/05/22 1105 OT Missed Visit Reason Unavailable pt transferred from ICU to floor, will follow up on floor -CE User [place] (r) = Recorded By, (t) = Taken By, (c) = Cosigned By Initials Name Effective Dates CE Edward Muir OT 07/06/19 - OT Treatment No documentation. OT Notes 12/05/2022 11:03 AM Progress Notes signed by Edward Muir OT , OT Eval and Treat Last Documented OT ASSESSMENT FLOWSHEET LAST DOCUMENTED (most recent) OT Evaluation - 12/05/22 3673 General Session Type Evaluation Safe Environment Arm band checked;Patient found in supine;Session completedbedside;Gait belt utilized for all out of bed mobility Precautions Precautions Fall risk Home Living Home Layout Able to live on main level with bedroom/bathroom;Laundry in basement Home Access Stairsto enter with rails Entrance Stairs-Rails Right Entrance Stairs-Number of Steps 2 Home Mobility Equipment Wheeled walker;Single point cane;Wheelchair-manual Additional Comments Pt. reports she does not use a device at baseline. She reports her just obtained DME listed. Prior Function Level of [place] Independent functional transfers;Independent with ADLs;Independent with ambulation Lives With Spouse Receives Help From Spouse/Significant other probably can get multimedia authoring specialist assistance Fall within the last 6 months Yes Fall within the last 6 months comment 2-3 falls related to syncope Pain Assessment Pain Assessment No/denies pain Activity Tolerance Activity Tolerance Comments yovani somewhat hard Cognition Orientation Oriented X4 (person, place, time, situation) Sensation Light Touch WFL BLEs Sensation Comments skin intact knees to ankles, no significant edema knees to ankles Balance Balance Yes Dynamic Sitting Balance Dynamic Sitting-Balance Support Feet supported;No upper extremity supported Dynamic Sitting-BalanceLateral lean;Forward lean;Reaching for objects Dynamic Sitting-Sitting Surface Bed Dynamic Sitting-Level of Assistance Close supervision Static Standing Balance Static Standing-Balance Support Unilateral upper extremity supported Static Standing-Standing Surface Floor Static Standing-Level of Assistance Minimum assistance Dynamic Standing Balance Dynamic Standing-Balance Support Unilateral upper extremity supported Dynamic Standing-Balance Lateral lean;Forward lean Dynamic Standing-Standing Surface Floor Dynamic Standing-Level of Assistance Minimum assistance Bed Mobility 1 Bed Mobility From 1 Supine Bed Mobility Type 1 To Bed Mobility to 1 Edge of bed Level of Assistance 1 Standby Assist Bed Mobility Comments 1 HOB elevated moderately, cues for positioning Transfers Transfer Yes Transfer 1 Transfer From 1 Sit Transfer Type 1 To and from Transfer to 1 Stand Transfer Device 1 No device;Wheeled walker Transfer Level of Assistance 1 Minimum Assist Trials/Comments 1 assist for balance, verbal cues for positioning and technique, performed x 3 trials Transfers 2 Transfer From 2 Stand;Bed Transfer Type 2 To Transfer to 2 Chair with arms Technique 2 Stand and step Transfer Device 2 Hand held assist Transfer Level of Assistance 2 Minimum Assist Trials/Comments 2 assist for balance RLE Assessment RLE Comments grossly 4/5 LLE Assessment LLE Comments grossly 4/5 Safe Environment End of Therapy Session Safe Environment End of Therapy Session Patient left supine in bed;RN notified;Call light within reach;Overbed table within reach Recommendation/Plan Patient at high risk for Falls;Readmission;Injury due to decreased ability to care for self Recommend Inpatient Rehab/Acute Rehab due to Ability to actively participate in intensive therapy 3 hours/day, 5 days/week or 900 minutes per week;Highly motivated to participate in therapy Treatment/Interventions during current admission Balance Training;Bed mobility;Endurance training;Equipment eval/education;Functional activity;Gait training;Parent/caregiver training and education;Therapeutic exercise OT TREATMENT FLOWSHEET LAST DOCUMENTED (most recent) OT Treatment - 12/05/22 7111 General Session Type Evaluation Safe Environment Arm band checked;Patient found in supine;Session completedbedside;Gait belt utilized for all out of bed mobility Precautions Precautions Fall risk Pain Assessment Pain Assessment No/denies pain Balance Balance Yes Dynamic Sitting Balance Dynamic Sitting-Balance Support Feet supported;No upper extremity supported Dynamic Sitting-BalanceLateral lean;Forward lean;Reaching for objects Dynamic Sitting-Sitting Surface Bed Dynamic Sitting-Level of Assistance Close supervision Static Standing Balance Static Standing-Balance Support Unilateral upper extremity supported Static Standing-Standing Surface Floor Static Standing-Level of Assistance Minimum assistance Dynamic Standing Balance Dynamic Standing-Balance Support Unilateral upper extremity supported Dynamic Standing-Balance Lateral lean;Forward lean Dynamic Standing-Standing Surface Floor Dynamic Standing-Level of Assistance Minimum assistance Bed Mobility 1 Bed Mobility From 1 Supine Bed Mobility Type 1 To Bed Mobility to 1 Edge of bed Level of Assistance 1 Standby Assist Bed Mobility Comments 1 HOB elevated moderately, cues for positioning Transfers Transfer Yes Transfer 1 Transfer From 1 Sit Transfer Type 1 To and from Transfer to 1 Stand Transfer Device 1 No device;Wheeled walker Transfer Level of Assistance 1 Minimum Assist Trials/Comments 1 assist for balance, verbal cues for positioning and technique, performed x 3 trials Transfers 2 Transfer From 2 Stand;Bed Transfer Type 2 To Transfer to 2 Chair with arms Technique 2 Stand and step Transfer Device 2 Hand held assist Transfer Level of Assistance 2 Minimum Assist Trials/Comments 2 assist for balance RLE Assessment RLE Comments grossly 4/5 LLE Assessment LLE Comments grossly 4/5 Cognition Orientation Oriented X4 (person, place, time, situation) Activity Tolerance Activity Tolerance Comments yovani somewhat hard Safe Environment End of Therapy Session Safe Environment End of Therapy Session Patient left supine in bed;RN notified;Call light within reach;Overbed table within reach Recommendation/Plan Patient at high risk for Falls;Readmission;Injury due to decreased ability to care for self Recommend Inpatient Rehab/Acute Rehab due to Ability to actively participate in intensive therapy 3 hours/day, 5 days/week or 900 minutes per week;Highly motivated to participate in therapy Treatment/Interventions during current admission Balance Training;Bed mobility;Endurance training;Equipment eval/education;Functional activity;Gait training;Parent/caregiver training and education;Therapeutic exercise OT Notes 12/05/2022 11:03 AM Progress Notes signed by Edward Muir, OT , PT Eval and Treat Last 72 Hours PT Evaluation Row Name 12/05/22 9469 Chart Reviewed Yes -CR Session Type Evaluation -CR Safe Environment Arm band checked;Patient found in supine;Session completed bedside;Gait belt utilized for all out of bed mobility -CR Subjective Agreeable to Therapy -CR Family/Caregiver Present Yes spouse -CR Physical Therapy-Patient Goal to have less fear moving -CR Precautions Fall risk -CR Home Layout Able to live on main level with bedroom/bathroom;Laundry in basement -CR Home Access Stairs to enter with rails -CR Entrance Stairs-Rails Right -CR Entrance Stairs-Number of Steps 2 -CR Home Mobility Equipment Wheeled walker;Single point cane;Wheelchair-manual -CR Additional Comments Pt. reports she does not use a device at baseline. She reports her justobtained DME listed. -CR Level of [place] Independent functional transfers;Independent with ADLs;Independent with ambulation -CR Lives With Spouse -CR Receives Help From Spouse/Significant other probably can get multimedia authoring specialist assistance -CR Fall within the last 6 months Yes -CR Fall within the last 6 months comment 2-3 falls related to syncope -CR Activity Tolerance Comments yovani somewhat hard -CR Pain Assessment No/denies pain -CR Orientation Oriented X4 (person, place, time, situation) -CR Light Touch WFL BLEs -CR Sensation Comments skin intact knees to ankles, no significant edema knees to ankles -CR Balance Yes -CR Dynamic Sitting-Balance Support Feet supported;No upper extremity supported -CR Dynamic Sitting-Balance Lateral lean;Forward lean;Reaching for objects -CR Dynamic Sitting-Sitting Surface Bed -CR Dynamic Sitting-Level of Assistance Close supervision -CR Static Standing-Balance Support Unilateral upper extremity supported -CR Static Standing-Standing Surface Floor -CR Static Standing-Level of Assistance Minimum assistance -CR Dynamic Standing-Balance Support Unilateral upper extremity supported -CR Dynamic Standing-Balance Lateral lean;Forward lean -CR Dynamic Standing-Standing Surface Floor -CR Dynamic Standing-Level of Assistance Minimum assistance -CR Bed Mobility From 1 Supine -CR Bed Mobility Type 1 To -CR Bed Mobility to 1 Edge of bed -CR Level of Assistance 1 Standby Assist -CR Bed Mobility Comments 1 HOB elevated moderately, cues for positioning -CR Transfer Yes -CR Transfer From 1 Sit -CR Transfer Type 1 To and from -CR Transfer to 1 Stand -CR Transfer Device 1 No device;Wheeled walker -CR Transfer Level of Assistance 1 Minimum Assist -CR Trials/Comments 1 assist for balance, verbal cues for positioning and technique, performed x 3 trials -CR Transfer From 2 Stand;Bed -CR Transfer Type 2 To -CR Transfer to 2 Chair with arms -CR Technique 2 Stand and step -CR Transfer Device 2 Hand held assist -CR Transfer Level of Assistance 2 Minimum Assist -CR Trials/Comments 2 assist for balance -CR Ambulation Yes -CR Distance (ft) 1 50 -CR Surface 1 Level tile -CR Device 1 Wheeled walker -CR Assistance 1 Minimum Assist -CR Gait: Requires assist with 1 Maintaining balance -CR Gait: Requires verbal cues to 1 Use assistive device safely;Utilize appropriate gait sequencing;Improve upright posture;Increase step length;Increase base of support;Pace activity -CR Gait Deviations 1 Heel strike - decreased;Hip/knee flexion during swing phase - decreased;Posture -flexed;Step length - decreased;Tamara - decreased;Base of support - decreased -CR RLE Comments grossly 4/5 -CR LLE Comments grossly 4/5 -CR How much difficulty does the patient have: Turning over in bed 3 -CR How much difficulty does the patient currently have: Sitting down and standing up from a chair witharms? 3 -CR How much difficulty does the patient have: Moving from lying on back to sitting on the side of the bed? 3 -CR How much difficulty does the patient have: Moving to and from a bed to a chair including wheelchair? 3 -CR How much help does the patient currently need: Walk in hospital room? 3 -CR How much help from another person does the patient currently need: Climbing 3-5 steps with a railing? 3 -CR Total 6 Click Score (range 6-24) 18 -CR Score Interpretation 41.05 -CR Safe Environment End of Therapy Session Patient left supine in bed;RN notified;Call light within reach;Overbed table within reach -CR Prognosis Good -CR Problem List Gait deviations;Decreased strength;Decreased endurance;Impaired balance;Decreased mobility -CR Problem List Comments PT Diagnosis: Pt. Presents with hypokalemia and metabolic alkalosis with recent fall at home results in above listed activity deficits and impairments which prevent full participation in home and community mobility. -CR Plan Plan of care initiated;If this is the last note, consider this the discharge summary -CR PT Recommendation/Plan Inpatient Rehab Facility -CR Patient at high risk for Falls;Readmission;Injury due to decreased ability to care for self -CR Recommend Inpatient Rehab/Acute Rehab due to Ability to actively participate in intensive therapy 3hours/day, 5 days/week or 900 minutes per week;Highly motivated to participate in therapy -CR PT Frequency during current admission 3-5x/wk -CR Treatment/Interventions during current admission Balance Training;Bed mobility;Endurance training;Equipment eval/education;Functional activity;Gait training;Parent/caregiver training and education;Therapeutic exercise -CR Progress during current admission Progressing toward goals -CR PT Evaluation Complete Yes -CR User [place] (r) = Recorded By, (t) = Taken By, (c) = Cosigned By Initials Name Effective Dates CR Estela Rojo, PT 12/14/21 - PT TREATMENT (last 168 hours) PT Treatment No documentation. PT Notes 12/05/2022 4:20 PM Progress Notes signed by Estela Rojo PT , PT Eval and Treat Last Documented OT ASSESSMENT FLOWSHEET LAST DOCUMENTED (most recent) PT Evaluation - 12/05/22 9825 General Chart Reviewed Yes Session Type Evaluation PT Received On 12/05/22 Safe Environment Arm band checked;Patient found in supine;Session completed bedside;Gait belt utilized for all out of bed mobility Subjective Agreeable to Therapy Family/Caregiver Present Yes spouse Physical Therapy-Patient Goal to have less fear moving Precautions Precautions Fall risk Home Living Home Layout Able to live on main level with bedroom/bathroom;Laundry in basement Home Access Stairsto enter with rails Entrance Stairs-Rails Right Entrance Stairs-Number of Steps 2 Home Mobility Equipment Wheeled walker;Single point cane;Wheelchair-manual Additional Comments Pt. reports she does not use a device at baseline. She reports her just obtained DME listed. Prior Function Level of [place] Independent functional transfers;Independent with ADLs;Independent with ambulation Lives With Spouse Receives Help From Spouse/Significant other probably can get multimedia authoring specialist assistance Fall within the last 6 months Yes Fall within the last 6 months comment 2-3 falls related to syncope Activity Tolerance Activity Tolerance Comments yovani somewhat hard Pain Assessment Pain Assessment No/denies pain Cognition Orientation Oriented X4 (person, place, time, situation) Sensation Light Touch WFL BLEs Sensation Comments skin intact knees to ankles, no significant edema knees to ankles Balance Balance Yes Dynamic Sitting Balance Dynamic Sitting-Balance Support Feet supported;No upper extremity supported Dynamic Sitting-BalanceLateral lean;Forward lean;Reaching for objects Dynamic Sitting-Sitting Surface Bed Dynamic Sitting-Level of Assistance Close supervision Static Standing Balance Static Standing-Balance Support Unilateral upper extremity supported Static Standing-Standing Surface Floor Static Standing-Level of Assistance Minimum assistance Dynamic Standing Balance Dynamic Standing-Balance Support Unilateral upper extremity supported Dynamic Standing-Balance Lateral lean;Forward lean Dynamic Standing-Standing Surface Floor Dynamic Standing-Level of Assistance Minimum assistance Bed Mobility 1 Bed Mobility From 1 Supine Bed Mobility Type 1 To Bed Mobility to 1 Edge of bed Level of Assistance 1 Standby Assist Bed Mobility Comments 1 HOB elevated moderately, cues for positioning Transfers Transfer Yes Transfer 1 Transfer From 1 Sit Transfer Type 1 To and from Transfer to 1 Stand Transfer Device 1 No device;Wheeled walker Transfer Level of Assistance 1 Minimum Assist Trials/Comments 1 assist for balance, verbal cues for positioning and technique, performed x 3 trials Transfers 2 Transfer From 2 Stand;Bed Transfer Type 2 To Transfer to 2 Chair with arms Technique 2 Stand and step Transfer Device 2 Hand held assist Transfer Level of Assistance 2 Minimum Assist Trials/Comments 2 assist for balance Ambulation Ambulation Yes Ambulation 1 Distance (ft) 1 50 Surface 1 Level tile Device 1 Wheeled walker Assistance 1 Minimum Assist Gait: Requires assist with 1 Maintaining balance Gait: Requires verbal cues to 1 Use assistive device safely;Utilize appropriate gait sequencing;Improve upright posture;Increase step length;Increase base of support;Pace activity Gait Deviations 1 Heel strike - decreased;Hip/knee flexion during swing phase - decreased;Posture -flexed;Step length - decreased;Tamara - decreased;Base of support - decreased RLE Assessment RLE Comments grossly 4/5 LLE Assessment LLE Comments grossly 4/5 Basic Mobility - 6 Click How much difficulty does the patient have: Turning over in bed 3 How much difficulty does the patient currently have: Sitting down and standing up from a chair with arms? 3 How much difficulty does the patient have: Moving from lying on back to sitting on the side of the bed? 3 How much difficulty does the patient have: Moving to and from a bed to a chair including wheelchair? 3 How much help does the patient currently need: Walk in hospital room? 3 How much help from another person does the patient currently need: Climbing 3-5 steps with a railing? 3 Total 6 Click Score (range 6-24) 18 Score Interpretation 41.05 Safe Environment End of Therapy Session Safe Environment End of Therapy Session Patient left supine in bed;RN notified;Call light within reach;Overbed table within reach Assessment Prognosis Good Problem List Gait deviations;Decreased strength;Decreased endurance;Impaired balance;Decreased mobility Problem List Comments PT Diagnosis: Pt. Presents with hypokalemia and metabolic alkalosis with recent fall at home results in above listed activity deficits and impairments which pr event full participation in home and community mobility. Plan Plan Plan of care initiated;If this is the last note, consider this the discharge summary Recommendation/Plan PT Recommendation/Plan Inpatient Rehab Facility Patient at high risk for Falls;Readmission;Injury due to decreased ability to care for self Recommend Inpatient Rehab/Acute Rehab due to Ability to actively participate in intensive therapy 3 hours/day, 5 days/week or 900 minutes per week;Highly motivated to participate in therapy PT Frequency during current admission 3-5x/wk Treatment/Interventions during current admission Balance Training;Bed mobility;Endurance training;Equipment eval/education;Functional activity;Gait training;Parent/caregiver training and education;Therapeutic exercise Progress during current admission Progressing toward goals PT - Next Appointment 12/06/22 PT Evaluation Complete Yes PT TREATMENT (most recent) PT Treatment - 12/05/22 8768 PT Last Visit Session Type Evaluation Safe Environment Arm band checked;Patient found in supine;Session completedbedside;Gait belt utilized for all out of bed mobility Subjective Agreeable to Therapy Family/Caregiver Present Yes spouse Precautions Precautions Fall risk Activity Tolerance Activity Tolerance Comments yovani somewhat hard Pain Assessment Pain Assessment No/denies pain Cognition Orientation Oriented X4 (person, place, time, situation) Balance Balance Yes Dynamic Sitting Balance Dynamic Sitting-Balance Support Feet supported;No upper extremity supported Dynamic Sitting-BalanceLateral lean;Forward lean;Reaching for objects Dynamic Sitting-Sitting Surface Bed Dynamic Sitting-Level of Assistance Close supervision Static Standing Balance Static Standing-Balance Support Unilateral upper extremity supported Static Standing-Standing Surface Floor Static Standing-Level of Assistance Minimum assistance Dynamic Standing Balance Dynamic Standing-Balance Support Unilateral upper extremity supported Dynamic Standing-Balance Lateral lean;Forward lean Dynamic Standing-Standing Surface Floor Dynamic Standing-Level of Assistance Minimum assistance Bed Mobility 1 Bed Mobility From 1 Supine Bed Mobility Type 1 To Bed Mobility to 1 Edge of bed Level of Assistance 1 Standby Assist Bed Mobility Comments 1 HOB elevated moderately, cues for positioning Transfers Transfer Yes Transfer 1 Transfer From 1 Sit Transfer Type 1 To and from Transfer to 1 Stand Transfer Device 1 No device;Wheeled walker Transfer Level of Assistance 1 Minimum Assist Trials/Comments 1 assist for balance, verbal cues for positioning and technique, performed x 3 trials Transfers 2 Transfer From 2 Stand;Bed Transfer Type 2 To Transfer to 2 Chair with arms Technique 2 Stand and step Transfer Device 2 Hand held assist Transfer Level of Assistance 2 Minimum Assist Trials/Comments 2 assist for balance Ambulation Ambulation Yes Ambulation 1 Distance (ft) 1 50 Surface 1 Level tile Device 1 Wheeled walker Assistance 1 Minimum Assist Gait: Requires assist with 1 Maintaining balance Gait: Requires verbal cues to 1 Use assistive device safely;Utilize appropriate gait sequencing;Improve upright posture;Increase step length;Increase base of support;Pace activity Gait Deviations 1 Heel strike - decreased;Hip/knee flexion during swing phase - decreased;Posture -flexed;Step length - decreased;Tamara - decreased;Base of support - decreased RLE Assessment RLE Comments grossly 4/5 LLE Assessment LLE Comments grossly 4/5 Basic Mobility - 6 Click How much difficulty does the patient have: Turning over in bed 3 How much difficulty does the patient currently have: Sitting down and standing up from a chair with arms? 3 How much difficulty does the patient have: Moving from lying on back to sitting on the side of the bed? 3 How much difficulty does the patient have: Moving to and from a bed to a chair including wheelchair? 3 How much help does the patient currently need: Walk in hospital room? 3 How much help from another person does the patient currently need: Climbing 3-5 steps with a railing? 3 Total 6 Click Score (range 6-24) 18 Score Interpretation 41.05 Safe Environment End of Therapy Session Safe Environment End of Therapy Session Patient left supine in bed;RN notified;Call light within reach;Overbed table within reach Assessment Prognosis Good Problem List Gait deviations;Decreased strength;Decreased endurance;Impaired balance;Decreased mobility Problem List Comments PT Diagnosis: Pt. Presents with hypokalemia and metabolic alkalosis with recent fall at home results in above listed activity deficits and impairments which pr event full participation in home and community mobility. Plan Plan Plan of care initiated;If this is the last note, consider this the discharge summary Recommendation/Plan PT Recommendation/Plan Inpatient Rehab Facility Patient at high risk for Falls;Readmission;Injury due to decreased ability to care for self Recommend Inpatient Rehab/Acute Rehab due to Ability to actively participate in intensive therapy 3 hours/day, 5 days/week or 900 minutes per week;Highly motivated to participate in therapy PT Frequency during current admission 3-5x/wk Treatment/Interventions during current admission Balance Training;Bed mobility;Endurance training;Equipment eval/education;Functional activity;Gait training;Parent/caregiver training and education;Therapeutic exercise Progress during current admission Progressing toward goals PT Evaluation Complete Yes PT Notes 12/05/2022 4:20 PM Progress Notes signed by Estela Rojo, PT * Significant Event - Alter, Zia Kinsey MD - 12/05/2022 8:40 AM CDT ICU TO MEDICINE HANDOFF TOOL Primary reason for ICU admission: Hypokalemia, metabolic alkalosis Brief ICU Course: 67F with newly diagnosed aflutter and moderate mitral valve regurg at [facility] in 11/2022, supposed to be discharged on sotalol and PO lasix, presenting 12/03 after a fall with contraction alkalosis and hypokalemia, suspected due to over-diuresis. Her QTc was 600 at arrival so sotalol held. She was given IVF in ED and IV and PO K/phos in ICU. She was also start on ceftriaxone for cystitis -however, just prior to leaving the ICU, UCx returned with insufficient growth. Repeat TTE in the MICU showed trade-mild MR; normal LA; PASP 30s; otherwise unremarkable. Around 4am on 12/05, went into likely AFlutter RVR (stable BPs); given metop 5 x3 with no response, then given amio 150 IV bolus x2; subsequently HR improved; on telemetry, seemed to convert back to NSR at 5:53am on 12/05; amio drip was started at 1 around 8am on 12/05 - afeb, HR 70s-110, BP stable, [id number] on RA. Notably, her cardiology notes from [place] are in the media tab. Active consultants: none New findings that warrant follow-up and pending studies: - AFlutter medical management - Consider discontinuation of abx given UCx with insufficient growth - Continue monitoring BMP/Mg/Phos and repleting electrolytes appropriately. PERTINENT physical exam findings on day of transfer: AOx4, euvolemic Important changes to home medications: We have not given furosemide, HCTZ, propranolol, sotalol, or alprazolam in the MICU. We did continue anticoagulation for Afib with apixaban. Medications to consider stopping prior to discharge: [] New antipsychotic (started for ICU delirium): [] Other: Major problems/Plans: #AFlutter Unclear medication list from [facility] hospitalization. Was potentially on both sotalol 80 mg BID and propranolol 120 mg daily as well as diltiazem 120 mg ER daily. QTc over 600 at presentation. Repeat TTE in the MICU showed trade- mild MR; normal LA; PASP 30s; otherwise unremarkable. Was insinus rhythm on presentation; around 4am on 12/05, went into likely AFlutter RVR (stable BPs); given metop 5 x3 with no response, then given amio 150 IV bolus x2; subsequently HR improved; on telemetry, seemed to convert back to NSR at 5:53am on 12/05; amio drip was started at 1 around 8am on 12/05 - Amio infusion (12/05 - ) - Tele with QTc monitoring - Not currently giving propranolol, diltiazem, or sotalol - Home apixaban 5 BID #Hypokalemia, resolved #Hypochloremia, resolved #Metabolic alkalosis, improving Hypokalemia on presentation to 1.9 with hypochloremia to 75 and metabolic alkalosis concerning for vomiting as primary etiology. Was prescribed potassium chloride 20 mEq ER daily and magnesium oxide [address] [facility] so presumably this has been ongoing in the setting of diuretic use and poor PO intake. Denies N/V. Suspect etiology is iatrogenic from home diuretics (furosemide, HCTZ). - Holding diuretics - Trend lytes Q8h and replete; at time of MICU discharge, on phos QID #Syncope, resolved Suspect in setting of profound electrolyte abnormalities, polypharmacy (furosemide, HCTZ, sotalol, propranolol, diltiazem, gabapentin, cyclobenzaprine, alprazolam at home), and UTI. Initial EKG sinusrhythm with prolonged QTc. TSH, trops unremarkable. TTE in the MICU showed trade-mild MR; normal LA; PASP 30s; otherwise unremarkable. -PT/OT #UTI, ruled out ED UA with 2+ LE, pyuria, suprapubic pain and dysuria. Was started on CTX, but subsequently UCx hadinsufficient growth. - Consider discontinuation of abx #KARINA, improving Admit creatinine 1.4 from 0.8 on 11/19/22. Improving with IVF. Suspect 2/2 over-diuresis. #DM2 Last A1c 12/04/2022: Hgb A1C 7.3. Home regimen: none?. - Carb-consistent diet, accuchecks, SSI, hypoglycemia protocol. #Constipation Suspect in setting of electrolyte abnormalities and poor PO intake. Pt had a BM on 12/04 evening. - Miralax daily PRN #MR [employer]LECT[employer] IN[employer]ER, was on home furosemide 40 mg BID and HCTZ 25 mg daily. Holding here due to electrolyte abnormalities and over-diuresis. Outside TTE 11/19/22: LVEF 60-65%, severe MR with mildly calcified MV annulus, mildly enlarged LA, mild TR, PASP 45. Repeat TTE in the MICU showed trade-mild MR; normal LA; PASP 30s; otherwise unremarkable. #HL: home simvastatin 80 #GERD: home PPI #Mood disorder, NOS: home imipramine 50 mg daily #Post-herpetic neuralgia Had shingles 6 weeks ago treated with Valtrex. - Gabapentin 100 TID - Acetaminophen PRN, lidocaine patches PRN Best family contact: Rehab/Ancillary Consults: [] BI (trauma patient with LOC) [] Chemical dependency [x] PT [x] OT [] Speech [] PM&R [] SMART (stroke patient) [] Wound care Anticoagulation therapy: [] VTE Prophylaxis [] Heparin [] Lovenox [] SCDs [] IVC Filter [] Other: [] None - Reason: [x] Therapeutic Anticoagulation Indication: AFlutter [] Heparin [] Lovenox [x] Other: apixaban Any previous issues with tolerating anticoagulants? [] Yes [x] No Describe: Venous duplex performed? [] Yes ---> Most recent findings: [x] No Current antimicrobial therapy: CTX - consider discontinuation as discussed under UTI above. Lines/drains/airways present Peripheral IV 12/03/22 20 G Right Antecubital (Active) Number of days: 1 Trach size, last date change (NA if not applicable): N/A To-do list prior to transfer: Make sure the following monitors or precautions are ordered if indicated: Telemetry [x] Yes [] No Continuous pulse oximetry [] Yes [x] No AYLEEN precautions [] Yes [x] No Difficult airway [] Yes [x] No Trach orders/signage [] Yes [x] No Size/Type: Date placed: Responsible service: Glycemic control plan [] Long acting insulin [x] SSI --> change from scheduled to AC/HS blood glucose checks [] None ----> d/c ICU insulin and blood glucose checks Central line necessary? [] Yes [] No [x] N/A Wilhelm catheter necessary? [] Yes [] No [x] N/A [x] Discontinue K/Mg/Phos repletion order (if applicable) [x] Discontinue stress ulcer prophylaxis if no longer indicated [x] Signed & Held orders reconciled (all orders either released or discontinued) [x] Sign-out was called to Dr. Dylan Smith of the [facility] service. * Plan of Care - Jaylin Navarrete RN - 12/04/2022 9:29 PM CDT Goals: Clinical Goals for the Shift: VSS, improved pain control, sleep hygiene, comfort and safety Problem: Activity: Goal: Mobility will improve Outcome: Progressing Problem: Lack of Knowledge: Goal: Understanding of ways to prevent future skin breakdown will improve Outcome: Progressing Goal: Ability to identify appropriate dietary choices will improve Outcome: Progressing Problem: Nutritional: Goal: Dietary intake will improve Outcome: Progressing Goal: Ability to maintain a balanced intake and output will improve Outcome: Progressing Problem: Skin Integrity: Goal: Risk for impaired skin integrity will decrease Outcome: Progressing Goal: Ability to demonstrate warm and dry skin will improve Outcome: Progressing Goal: Circulation will improve to fullest extent possible Outcome: Progressing Problem: Lack of Knowledge: Goal: Knowledge of the prescribed therapeutic regimen will improve Outcome: Progressing Goal: Knowledge of disease or condition will improve Outcome: Progressing Problem: Sensory: Goal: General experience of comfort will improve Outcome: Progressing Problem: Urinary Elimination: Goal: Signs and symptoms of infection will decrease Outcome: Progressing Goal: Ability to reestablish a normal urinary elimination pattern will improve Outcome: Progressing Goal: Complications related to the disease process, condition or treatment will be avoided or minimized Outcome: Progressing Problem: Cardiac: Goal: Will achieve and/or maintain adequate cardiac output Outcome: Progressing Problem: Lack of Knowledge: Goal: Knowledge of disease or condition and prescribed therapeutic regimen will improve Outcome: Progressing Problem: Coping: Goal: Level of anxiety will decrease Outcome: Progressing Problem: Physical Regulation: Goal: Complications related to the disease process, condition or treatment will be avoided or minimized Outcome: Progressing Problem: Safety: Goal: Will remain free from injury Outcome: Progressing Problem: Lack of Knowledge: Goal: Knowledge of disease or condition will improve Outcome: Progressing Problem: Fluid Volume: Goal: Ability to achieve a balanced intake and output will improve Outcome: Progressing Problem: Physical Regulation: Goal: Ability to maintain clinical measurements within normal limits will improve Outcome: Progressing Goal: Will show no signs and symptoms of electrolyte imbalance Outcome: Progressing Problem: Health Behavior: Goal: Understanding of discharge needs will improve Outcome: Progressing * Initial Assessments - Corinna Cooley RN - 12/04/2022 1:00 PM CDT CM Initial Assessment Interview Note Information Obtained From: Spouse Name: kenan Porter, (12/04/221257) Admission Source: admitted from the emergency dept Impression: 67 year old female who presents with profound hypokalemia and metabolic alkalosis, h/o afib on AC, MVR, sensorineural hearing loss Plan Includes: transfer to medical division once medically stable Primary Source of Transportation: Does the patient need discharge transport arranged?: No (12/04/221257) Health Insurance Coverage: Medicare A & B Prescription Coverage: yes Pharmacy: [facility] in [place] Primary Care Provider: Tio Shea MD @ [phone], verified Prior to Admission: Primary Caregiver: Self Caregiver Name: Balta Carroll Relationship to patient: spouse Caregiver Contact Information: [phone] Support System: Spouse/Significant Other Support system contact info (name, phone, availablity): kenan Porter, Home Care Services: No Durable Medical Equipment: None Living Arrangements: Spouse/significant other Type of Residence: Private residence Steps in home? : Yes, Outside of home, Yes, Inside home Number of steps inside:: 12 steps Number of steps outside:: 3 steps Medication management: (patient manages her own medications) (12/04/22 0200) Potential discharge needs include: TBD Dialysis: na Behavioral Health Services: Behavioral Health Services: No (12/04/221257) Patient expects to be Discharged to: Private residence, (12/04/22 125) Additional Information: patient's spouse to provide transportation at the time of discharge Patient's Identified Problem/Goal Problem: Ensure acute medical needs are met and that patient has a safe discharge plan. Goal: Secure a discharge plan that patient/family are agreeable with and ensure patient has continuum of care. Case management will follow for discharge planning and send referrals as needed. Goals include: To assure continuity of care, To maximize coping skills, To assure patient is in a safe environment and To assure access to community resources. Plan includes: 1. Collaboration with patient, MD, direct care nurse, Rodding Anode Worker, and other members of the health care team to assure needed interventions completed. 2. Return patient to optimal level of self-care post discharge. 3. Transition Assistant will follow for Discharge Planning - interventions as needed 4. Anticipated level of care at discharge 5. Planned Discharge Disposition Based on a comprehensive family assessment, assistance with instrumental activities of daily livingafter discharge will be provided by patient Through the course of our work I determined that the patient possesses the skill and ability to provide and monitor the care of the patient when he or she returns home. patient has the capacity to provide/monitor/arrange for the care of the patient. Finally, we determined that patient has the knowledge of available resources and that combining them with their existing resources will suffice to sustain and care for the patient when he or she returns home. The treatment team is aware of this information. All are in agreement with the aftercare plan. Corinna Cooley RN * Plan of Care - Jaylin Navarrete RN - 12/04/2022 2:56 AM CDT Goals: VSS, monitor labs Problem: Activity: Goal: Mobility will improve Outcome: Progressing Problem: Lack of Knowledge: Goal: Understanding of ways to prevent future skin breakdown will improve Outcome: Progressing Goal: Ability to identify appropriate dietary choices will improve Outcome: Progressing Problem: Nutritional: Goal: Dietary intake will improve Outcome: Progressing Goal: Ability to maintain a balanced intake and output will improve Outcome: Progressing Problem: Skin Integrity: Goal: Risk for impaired skin integrity will decrease Outcome: Progressing Goal: Ability to demonstrate warm and dry skin will improve Outcome: Progressing Goal: Circulation will improve to fullest extent possible Outcome: Progressing Problem: Lack of Knowledge: Goal: Knowledge of the prescribed therapeutic regimen will improve Outcome: Progressing Goal: Knowledge of disease or condition will improve Outcome: Progressing Problem: Sensory: Goal: General experience of comfort will improve Outcome: Progressing Problem: Urinary Elimination: Goal: Signs and symptoms of infection will decrease Outcome: Progressing Goal: Ability to reestablish a normal urinary elimination pattern will improve Outcome: Progressing Goal: Complications related to the disease process, condition or treatment will be avoided or minimized Outcome: Progressing Problem: Cardiac: Goal: Will achieve and/or maintain adequate cardiac output Outcome: Progressing Problem: Lack of Knowledge: Goal: Knowledge of disease or condition and prescribed therapeutic regimen will improve Outcome: Progressing Problem: Coping: Goal: Level of anxiety will decrease Outcome: Progressing Problem: Physical Regulation: Goal: Complications related to the disease process, condition or treatment will be avoided or minimized Outcome: Progressing Problem: Safety: Goal: Will remain free from injury Outcome: Progressing Problem: Lack of Knowledge: Goal: Knowledge of disease or condition will improve Outcome: Progressing Problem: Fluid Volume: Goal: Ability to achieve a balanced intake and output will improve Outcome: Progressing Problem: Physical Regulation: Goal: Ability to maintain clinical measurements within normal limits will improve Outcome: Progressing Goal: Will show no signs and symptoms of electrolyte imbalance Outcome: Progressing * ED Procedure Note - Anny Gongora MD - 12/03/2022 11:03 PM CDT Associated Order(s): Critical Care Procedure Critical Care Performed by: Anny Gongora MD Authorized by: Anny Gongora MD Critical care provider statement: As reflected in the history, physical exam, orders, notes, and/or MDM, I was personally present while the patient was critically ill and provided critical care services for 45 minutes, excluding timeinvolved in separately billable procedures. Critical care was necessary to treat or prevent imminent or life- threatening deterioration of the following condition(s): Suspected b judie toxicity as contributor acute electrolyte derangement and severe metabolic condition severe toxicological condition Critical care was time spent by me providing the following: continuous telemetry, continuous pulse oximetry, interpretation of bedside monitors, imaging, and arterial/venous lab draws, serial bedside patient exams, serial laboratory checks and resuscitation with fluids frequent neurologic exams decision regarding NPO status active repletion of electrolytes I provided emergent necessary critical care medicine services to this patient. I ordered and reviewed test results and/or imaging studies. I spent time discussing the management of this critically ill patient with consultants and the medical staff. I spent time discussing the management and therapeutic options for this critically ill patient with the patient themselves or with the appropriate designated surrogate decision-maker. I spent time documenting in the medical record. I admitted this patient to an Intensive Care unit (ICU) and discussed management with the admitting team. Anny Gongora MD 12/03/22 9415 * ED Procedure Note - Anny Gongora MD - 12/03/2022 10:50 PM CDT Associated Order(s): ECG 12 lead Procedure ECG 12 lead Date/Time: 12/03/2022 10:50 PM Performed by: Chico Rodney MD Authorized by: Zia Camara MD Quality: Tracing quality: Limited by artifact Comments: Compared to EKG earlier today, patient appears to be in sinus rhythm, P waves are visible. Rate is 63. QT interval is 610. Pipestem is normal. There are T-wave inversions in AVR, V1, V3, V2. Compared to earlier today, patient now has P waves, appears to be in sinus rhythm. Patient has some developing T-wave abnormality in V2 and V3. Nonspecific, patient continues to have long QT. reviewed the EKG and agree with the resident's interpretation unless otherwise noted Anny Gongora MD 12/03/22 2312 Anny Gongora MD 12/20/22 1738 * ED Procedure Note - Bel Sahni MD - 12/03/2022 6:59 PM CDT Associated Order(s): Peripheral line insertion Procedure Peripheral line insertion Date/Time: 12/03/2022 6:59 PM Performed by: Bel Sahni MD Authorized by: Anny Gongora MD Indications: Nursing unable to obtain Pre-procedure details: Hand hygiene: Hand hygiene performed prior to insertion Sterile barrier technique: All elements of maximal sterile technique followed Skin preparation: 2% chlorhexidine Skin preparation agent: Skin preparation agent completely dried prior to procedure Anesthesia (see MAR for exact dosages): Anesthesia method: None Procedure details: Catheter size: 20 G Laterality: Right Location: Antecubital fossa Number of attempts: 2 Ultrasound guidance was used to confirm vessel patency and needle position: Yes Successful placement: yes Post-procedure details: Post-procedure: Dressing applied and line secured Patient tolerance of procedure: Tolerated well, no immediate complications Bel Sahni MD Resident 12/03/22 9959 Cosigned by Anny Gongora MD at 12/03/2022 11:55 PM CDT Associated attestation - Anny Gongora MD - 12/03/2022 11:55 PM CDT I was present for the [place] portions of the procedure: line/catheter insertion and remained immediately available for the remainder of the procedure. * ED Procedure Note - Anny Gongora MD - 12/03/2022 5:50 PM CDT Associated Order(s): ECG 12 lead Procedure ECG 12 lead Date/Time: 12/03/2022 5:50 PM Performed by: Chico Rodney MD Authorized by: Zia Camara MD Quality: Tracing quality: Limited by artifact Comments: patient has a rate of 70. No P waves noted, appears to be an accelerated junctional rhythm at a rate of 70. Alternatively, the patient may have a prolonged GA interval with the P wave buried in the T-wave. Pipestem is normal. T- waves are inverted in AVR and V1. The QT interval is markedly prolonged at 604. Otherwise, there is some mild ST depression in leads 1, 2, V4, V5, V6. No comparison. Abnormal EKG, further workup in the ED. nonspecific findings. reviewed the EKG and agree with the resident's interpretation unless otherwise noted Chico Rodney MD Resident 12/03/221751 Anny Gongora MD 12/24/221801 documented in this encounter Plan of Treatment Not on file documented as of this encounter Procedures Procedure Name Priority Date/Time Associated Diagnosis Comments EVENT MONITOR Routine 12/11/2022 11:57 AM CDT POCT GLUCOSE DEVICE Routine 12/11/2022 1 1:35 AM CDT EGFR Timed 12/11/2022 10:09 AM CDT PHOSPHORUS Timed 12/11/2022 10:09 AM CDT MAGNESIUM Timed 12/11/2022 10:09 AM CDT BASIC METABOLIC PANEL Timed 12/11/2022 10:09 AM CDT POCT GLUCOSE DEVICE Routine 12/11/2022 7 :58 AM CDT EGFR Timed 12/10/2022 8:49 PM CDT PHOSPHORUS Timed 12/10/2022 8:49 PM CDT MAGNESIUM Timed 12/10/2022 8:49 PM CDT BASIC METABOLIC PANEL Timed 12/10/2022 8:49 PM CDT POCT GLUCOSE DEVICE Routine 12/10/2022 7 :43 PM CDT POCT GLUCOSE DEVICE Routine 12/10/2022 5 :47 PM CDT ECG 12-LEAD Routine 12/10/2022 3:55 PM CDT POCT GLUCOSE DEVICE Routine 12/10/2022 1 1:26 AM CDT EGFR Timed 12/10/2022 9:36 AM CDT DIFFERENTIAL AUTO Timed 12/10/2022 9:3 6 AM CDT CBC WITH AUTO DIFFERENTIAL Timed 12/10/2022 9:36 AM CDT PHOSPHORUS Timed 12/10/2022 9:36 AM CDT MAGNESIUM Timed 12/10/2022 9:36 AM CDT BASIC METABOLIC PANEL Timed 12/10/2022 9:36 AM CDT POCT GLUCOSE DEVICE Routine 12/10/2022 8 :00 AM CDT EGFR Timed 12/09/2022 8:55 PM CDT CBC WITHOUT DIFFERENTIAL Timed 12/09/2022 8:55 PM CDT PHOSPHORUS Timed 12/09/2022 8:55 PM CDT MAGNESIUM Timed 12/09/2022 8:55 PM CDT BASIC METABOLIC PANEL Timed 12/09/2022 8:55 PM CDT POCT GLUCOSE DEVICE Routine 12/09/2022 8 :17 PM CDT POCT GLUCOSE DEVICE Routine 12/09/2022 5 :05 PM CDT POCT GLUCOSE DEVICE Routine 12/09/2022 1 1:46 AM CDT EGFR Timed 12/09/2022 8:48 AM CDT PHOSPHORUS Timed 12/09/2022 8:48 AM CDT MAGNESIUM Timed 12/09/2022 8:48 AM CDT BASIC METABOLIC PANEL Timed 12/09/2022 8:48 AM CDT POCT GLUCOSE DEVICE Routine 12/09/2022 7 :29 AM CDT B CHECK SAMPLE STAT 12/08/2022 10:37 PM CDT EGFR Timed 12/08/2022 9:07 PM CDT HC ANTIBODY SCREEN RBC Timed 12/08/2022 9:07 PM CDT PHOSPHORUS Timed 12/08/2022 9:07 PM CDT MAGNESIUM Timed 12/08/2022 9:07 PM CDT BASIC METABOLIC PANEL Timed 12/08/2022 9:07 PM CDT POCT GLUCOSE DEVICE Routine 12/08/2022 7 :53 PM CDT POCT GLUCOSE DEVICE Routine 12/08/2022 4 :57 PM CDT POCT GLUCOSE DEVICE Routine 12/08/2022 1 1:34 AM CDT ECG 12-LEAD Routine 12/08/2022 11:26 AM CDT EGFR Timed 12/08/2022 9:08 AM CDT PHOSPHORUS Timed 12/08/2022 9:08 AM CDT MAGNESIUM Timed 12/08/2022 9:08 AM CDT BASIC METABOLIC PANEL Timed 12/08/2022 9:08 AM CDT POCT GLUCOSE DEVICE Routine 12/08/2022 7 :33 AM CDT EGFR Timed 12/08/2022 12:42 AM CDT PHOSPHORUS Timed 12/08/2022 12:42 AM CDT MAGNESIUM Timed 12/08/2022 12:42 AM CDT BASIC METABOLIC PANEL Timed 12/08/2022 12:42 AM CDT EGFR Timed 12/07/2022 9:10 PM CDT CBC WITHOUT DIFFERENTIAL Routine 12/07/2022 9:10 PM CDT PHOSPHORUS Timed 12/07/2022 9:10 PM CDT MAGNESIUM Timed 12/07/2022 9:10 PM CDT BASIC METABOLIC PANEL Timed 12/07/2022 9:10 PM CDT POCT GLUCOSE DEVICE Routine 12/07/2022 8 :21 PM CDT POCT GLUCOSE DEVICE Routine 12/07/2022 4 :37 PM CDT POCT GLUCOSE DEVICE Routine 12/07/2022 1 1:33 AM CDT EGFR Timed 12/07/2022 10:55 AM CDT PHOSPHORUS Timed 12/07/2022 10:55 AM CDT MAGNESIUM Timed 12/07/2022 10:55 AM CDT BASIC METABOLIC PANEL Timed 12/07/2022 10:55 AM CDT POCT GLUCOSE DEVICE Routine 12/07/2022 7 :23 AM CDT EGFR Timed 12/06/2022 11:55 PM CDT PHOSPHORUS Timed 12/06/2022 11:55 PM CDT MAGNESIUM Timed 12/06/2022 11:55 PM CDT BASIC METABOLIC PANEL Timed 12/06/2022 11:55 PM CDT POCT GLUCOSE DEVICE Routine 12/06/2022 8 :32 PM CDT POCT GLUCOSE DEVICE Routine 12/06/2022 6 :04 PM CDT EGFR Timed 12/06/2022 4:48 PM CDT PHOSPHORUS Timed 12/06/2022 4:48 PM CDT MAGNESIUM Timed 12/06/2022 4:48 PM CDT BASIC METABOLIC PANEL Timed 12/06/2022 4:48 PM CDT POCT GLUCOSE DEVICE Routine 12/06/2022 1 1:15 AM CDT POCT GLUCOSE DEVICE Routine 12/06/2022 1 1:13 AM CDT EGFR Timed 12/06/2022 10:29 AM CDT PHOSPHORUS Timed 12/06/2022 10:29 AM CDT MAGNESIUM Timed 12/06/2022 10:29 AM CDT BASIC METABOLIC PANEL Timed 12/06/2022 10:29 AM CDT ECG 12-LEAD STAT 12/06/2022 9:28 AM CDT POCT GLUCOSE DEVICE Routine 12/06/2022 8 :37 AM CDT ECG 12-LEAD Routine 12/06/2022 5:11 AM CDT DIFFERENTIAL AUTO Timed 12/05/2022 8:4 4 PM CDT CBC WITH AUTO DIFFERENTIAL Timed 12/05/2022 8:44 PM CDT EGFR Timed 12/05/2022 8:42 PM CDT PHOSPHORUS Timed 12/05/2022 8:42 PM CDT MAGNESIUM Timed 12/05/2022 8:42 PM CDT BASIC METABOLIC PANEL Timed 12/05/2022 8:42 PM CDT POCT GLUCOSE DEVICE Routine 12/05/2022 8 :40 PM CDT POCT GLUCOSE DEVICE Routine 12/05/2022 4 :12 PM CDT EGFR Timed 12/05/2022 3:03 PM CDT PHOSPHORUS Timed 12/05/2022 3:03 PM CDT MAGNESIUM Timed 12/05/2022 3:03 PM CDT HEPATIC FUNCTION PANEL Timed 12/05/2022 3:03 PM CDT BASIC METABOLIC PANEL Timed 12/05/2022 3:03 PM CDT POCT GLUCOSE DEVICE Routine 12/05/2022 1 1:37 AM CDT ECG 12-LEAD Routine 12/05/2022 11:05 AM CDT EGFR Timed 12/05/2022 8:48 AM CDT PHOSPHORUS Timed 12/05/2022 8:48 AM CDT MAGNESIUM Timed 12/05/2022 8:48 AM CDT BASIC METABOLIC PANEL Timed 12/05/2022 8:48 AM CDT POCT GLUCOSE DEVICE Routine 12/05/2022 8 :00 AM CDT ECG 12-LEAD Routine 12/05/2022 4:23 AM CDT POTASSIUM, WHOLE BLOOD Routine 12/05/2022 4:21 AM CDT EGFR Timed 12/05/2022 4:08 AM CDT DIFFERENTIAL AUTO Routine 12/05/2022 4:0 8 AM CDT CBC WITH AUTO DIFFERENTIAL Routine 12/05/2022 4:08 AM CDT PHOSPHORUS Timed 12/05/2022 4:08 AM CDT MAGNESIUM Timed 12/05/2022 4:08 AM CDT BASIC METABOLIC PANEL Timed 12/05/2022 4:08 AM CDT POTASSIUM, WHOLE BLOOD Timed 12/04/2022 10:08 PM CDT EGFR Timed 12/04/2022 10:08 PM CDT PHOSPHORUS Timed 12/04/2022 10:08 PM CDT MAGNESIUM Timed 12/04/2022 10:08 PM CDT BASIC METABOLIC PANEL Timed 12/04/2022 10:08 PM CDT POCT GLUCOSE DEVICE Routine 12/04/2022 8 :59 PM CDT POCT GLUCOSE DEVICE Routine 12/04/2022 5 :27 PM CDT POTASSIUM, WHOLE BLOOD Timed 12/04/2022 4:49 PM CDT EGFR Timed 12/04/2022 4:49 PM CDT PHOSPHORUS Timed 12/04/2022 4:49 PM CDT MAGNESIUM Timed 12/04/2022 4:49 PM CDT BASIC METABOLIC PANEL Timed 12/04/2022 4:49 PM CDT TRANSTHORACIC ECHO (TTE) COMPLETE W DOPPLER/CF W CONTRAST ED Urgent/IP Urgent 12/04/2022 3:32 PM CDT EGFR Timed 12/04/2022 12:00 PM CDT PHOSPHORUS Timed 12/04/2022 12:00 PM CDT MAGNESIUM Timed 12/04/2022 12:00 PM CDT BASIC METABOLIC PANEL Timed 12/04/2022 12:00 PM CDT POTASSIUM, WHOLE BLOOD Timed 12/04/2022 11:11 AM CDT POTASSIUM, WHOLE BLOOD Timed 12/04/2022 6:04 AM CDT EGFR Timed 12/04/2022 6:04 AM CDT DIFFERENTIAL AUTO Routine 12/04/2022 6:0 4 AM CDT CRITICAL RESULT CALLBACK CHEMISTRY Timed 12/04/2022 6:04 AM CDT CRITICAL RESULT CALLBACK CHEMISTRY Routine 12/04/2022 6:04 AM CDT CBC WITH AUTO DIFFERENTIAL Routine 12/04/2022 6:04 AM CDT MAGNESIUM Timed 12/04/2022 6:04 AM CDT HEMOGLOBIN A1C Routine 12/04/2022 6:04 AM CDT BLOOD GAS, VENOUS Routine 12/04/2022 6:0 4 AM CDT BASIC METABOLIC PANEL Timed 12/04/2022 6:04 AM CDT POTASSIUM, WHOLE BLOOD Timed 12/04/2022 1:16 AM CDT EGFR Timed 12/04/2022 1:16 AM CDT CRITICAL RESULT CALLBACK CHEMISTRY Timed 12/04/2022 1:16 AM CDT CRITICAL RESULT CALLBACK CHEMISTRY Timed 12/04/2022 1:16 AM CDT INFECTION PREVENTION MRSA ONLY (STAPHYLOCOCCUS AUREUS) CULTURE Routine 12/04/2022 1:16 AM CDT MAGNESIUM Timed 12/04/2022 1:16 AM CDT BASIC METABOLIC PANEL Timed 12/04/2022 1:16 AM CDT TROPONIN I HIGH-SENSITIVITY 4-HOUR Timed 12/03/2022 11:43 PM CDT EGFR Timed 12/03/2022 11:43 PM CDT CRITICAL RESULT CALLBACK CHEMISTRY Timed 12/03/2022 11:43 PM CDT BASIC METABOLIC PANEL Timed 12/03/2022 11:43 PM CDT ECG 12-LEAD STAT 12/03/2022 11:17 PM CDT GA CRITICAL CARE ILL/INJURED PATIENT INIT 30-74 MIN Routine 12/03/2022 11:03 PM CDT ECG 12-LEAD Routine 12/03/2022 10:50 PM CDT URINALYSIS AND REFLEX TO MICROSCOPIC AND CULTURE STAT 12/03/2022 8:54 PM CDT URINALYSIS, MICROSCOPIC ONLY STAT 12/03/2022 8:54 PM CDT URINE CULTURE STAT 12/03/2022 8:54 PM CDT TROPONIN I HIGH-SENSITIVITY 2-HOUR Timed 12/03/2022 8:53 PM CDT CRITICAL RESULT CALLBACK CARDIO CHEM Timed 12/03/2022 8:53 PM CDT POTASSIUM, WHOLE BLOOD STAT 12/03/2022 8:53 PM CDT EGFR Timed 12/03/2022 8:53 PM CDT CRITICAL RESULT CALLBACK CHEMISTRY Timed 12/03/2022 8:53 PM CDT CRITICAL RESULT CALLBACK CHEMISTRY STAT 12/03/2022 8:53 PM CDT CRITICAL RESULT CALLBACK CHEMISTRY STAT 12/03/2022 8:53 PM CDT BLOOD GAS, VENOUS STAT 12/03/2022 8:5 3 PM CDT LIPID PANEL Timed 12/03/2022 8:53 PM CDT BASIC METABOLIC PANEL Timed 12/03/2022 8:53 PM CDT TROPONIN I HIGH-SENSITIVITY SERIES (BASELINE, 2HR, 4HR, 6HR) STAT 12/03/2022 7:10 PM CDT EGFR STAT 12/03/2022 7:10 PM CDT DIFFERENTIAL AUTO STAT 12/03/2022 7:1 0 PM CDT CRITICAL RESULT CALLBACK CHEMISTRY STAT 12/03/2022 7:10 PM CDT THYROID FUNCTION CASCADE STAT 12/03/2022 7:10 PM CDT CBC WITH AUTO DIFFERENTIAL STAT 12/03/2022 7:10 PM CDT MAGNESIUM STAT 12/03/2022 7:10 PM CDT BASIC METABOLIC PANEL STAT 12/03/2022 7:10 PM CDT ED PERIPHERAL LINE INSERTION Routine 12/03/2022 6:59 PM CDT ECG 12-LEAD Routine 12/03/2022 5:[address] HEAD WO CONTRAST ED 12/03/2022 5 :34 PM CDT XR CHEST 1 VIEW ED 12/03/2022 5:08 PM CDT documented in this encounter Results * Event Monitor, 30 Day Event (12/11/2022 11:57 AM CDT) Anatomical Region Laterality Modality Electrocardiogra phy 12/11/2022 10:5 5 AM CDT Narrative 01/16/2023 12:13 PM CDT Patient name: Stella Carroll Date of test: 12/11/2022 Type of Test: Event Monitor ([facility]) [facility] #: 0 ?Location: [facility] : 1955 ??Age: 67 ??Sex: F Ref Physician(s): KIRSTEN MARTINS MD Interpreted by: Romie Urrutia MD Zaya: Zaira Castellon Diagnosis: Monitoring Service: [employer] Reason for Test: R00.2: Palpitations Monitor Used: [facility] ([facility]) ??[id number] Enrollment Period: December 11 - Jan 09, 2023 Zaya comments: Patient Instructions: Understood directions and use of equipment. Number of Transmissions Sent During Enrollment Period: 10 To obtain transmission tracing contact: Rhythm Summary: Afib longest duration: 01:23:10 Date [...] The full scanned/data report is available in [employer]. labeled MONITOR STRIPS PDF . This study was interpreted by Romie Urrutia MD Confirmed on ??01/16/2023 - 12:13:20 by Romie Urrutia MD Summary of Transmitted Events: # ??Date ? Time ?HR ?Symptoms/Rhythm ? 10 01/02/23 10:21 ?? 121.0 ?? Auto Trigger ? Atrial Fibrillation RVR Onset, Sinus Arrhythmia w/Couple 9 ??01/01/23 13:30 ?? 85.0 ?None or Accidental Push ? Sinus Rhythm w/Lead Loss ? 8 ??12/30/22 04:28 ?? 120.0 ?? Auto Trigger ? Atrial Fibrillation RVR Sustained, Sinus Rhythm w/PVCs ( 7 ??12/29/22 04:03 ?? 120.0 ?? Auto Trigger ? Atrial Fibrillation RVR Non Sustained, Sinus Rhythm w/PV 6 ??12/25/22 09:30 ?? 120.0 ?? Auto Trigger ? Atrial Fibrillation RVR Sustained w/PVCs (1 in 1 min) ?? 5 ??12/25/22 09:20 ?? 120.0 ?? Auto Trigger ? Atrial Fibrillation RVR Non Sustained Onset, Sinus Rhyth 4 ??12/21/22 09:00 ?? 84.0 ?None or Accidental Push ? Sinus Rhythm ? 3 ??12/16/22 21:12 ?? 80.0 ?None Reported ? Sinus Rhythm ? 2 ??12/14/22 10:54 ?? 150.0 ?? Auto Trigger ? Atrial Fibrillation RVR Sustained w/PVCs (1 in1 ??min) ?? 1 ??12/11/22 11:52 ?? 67.3 ?Auto Trigger; Baseline ? Sinus Rhythm ? I have personally reviewed and interpreted this study. Procedure Note Romie Urrutia MD PhD - 01/16/2023 Patient name: Stella Carroll Date of test: 12/11/2022 Type of Test: Event Monitor ([facility]) Hospital #: 0 Location: [facility] : 1955 Age: 67 Sex: F Ref Physician(s): KIRSTEN MARTINS MD Interpreted by: Romie Urrutia MD [employer] Tech: Zaira Castellon Diagnosis: Monitoring Service: [employer] Reason for Test: R00.2: Palpitations Monitor Used: [facility] ([facility]) [id number] Enrollment Period: December 11 - Jan 09, 2023 Zaya comments: Patient Instructions: Understood directions and use of equipment. Number of Transmissions Sent During Enrollment Period: 10 To obtain transmission tracing contact: Rhythm Summary: Afib longest duration: 01:23:10 Date [...] The full scanned/data report is available in [employer]. labeled MONITOR STRIPS PDF . This study was interpreted by Romie Urrutia MD Confirmed on 01/16/2023 - 12:13:20 by Romie Urrutia MD Summary of Transmitted Events: # [...] Sinus Rhythm I have personally reviewed and interpreted this study. Kirsten Martins MD CV CARDIAC SERVICES PROCEDURES F inal Result * POCT glucose (12/11/2022 11:35 AM CDT) [facility] Signature Glucose, POC 136 70 - 199 mg/dL [facility] Blood 12/11/2022 11:3 5 AM CDT 12/11/2022 11:35 AM CDT us Zia Mendoza MD LAB POCT ORDERABLES - DEVICE Final Result [facility] Department [place] [address] * (ABNORMAL) eGFR (12/11/2022 10:09 AM CDT) eGFR 70(L) 90 - 130 mL/min/1. [address] [facility] Comment: Interpretive Data Reference Interval Normal ?>/= 90 mL/min/1.73m2 Mildly decreased* ? 60 - 89 mL/min/1.73m2 Mildly to moderately decreased ?45 - 59 mL/min/1.73m2 Moderately to severely decreased ??30 - 44 mL/min/1.73m2 Severely decreased ?15 - 29 mL/min/1.73m2 Kidney Failure ?< 15 ??mL/min/1.73m2 *Relative to young adult level Estimated glomerular filtration rate is determined by the 2020 CKD-EPI equation recommended by the National Kid[employer] (A Unifying Approach to GFR Estimation: Recommendations of the NKF-ASK Task Force on Reassessing the Inclusion of Race in Diagnosing Kidney Disease, JASN 2020). The CKD-EPI equation should not be used for patients with unstable renal function and has not been validated in children and those over 70. Current interpretive data was last reviewed 2021. Blood 12/11/2022 10:0 9 AM CDT 12/11/2022 10:42 AM CDT us Kirsten Martins MD LAB BLOOD ORDERABLES Final Resul t [facility] Department [place] [address] * Phosphorus (12/11/2022 10:09 AM CDT) Phosphorus, pl 3.1 2.3 - 4.5 mg/dL [facility] Blood 12/11/2022 10:0 9 AM CDT 12/11/2022 10:42 AM CDT us Kirsten Martins MD LAB BLOOD ORDERABLES Final Resul t Performing Organization Address City/[facility]/ZIP Co de Phone Number [facility] [place] [address] * Magnesium (12/11/2022 10:09 AM CDT) Pathologist [facility] Magnesium 1.8 1.4 - 2.5 mg/dL [facility] Blood 12/11/2022 10:0 9 AM CDT 12/11/2022 10:42 AM CDT us Kirsten Martins MD LAB BLOOD ORDERABLES Final Resul t Performing Organization Address [facility] de Phone Number [facility] [place] [address] * Basic metabolic panel (12/11/2022 10:09 AM CDT) Sodium 139 135 - 145 mmol/L [facility] Potassium, pl 3.9 3.3 - 4.9 mmol/L [facility] Chloride 101 97 - 110 mmol/L [facility] CO2 29 22 - 32 mmol/L [facility] Anion gap 9 2 - 15 mmol/L [facility] BUN 13 8 - 25 mg/dL [facility] Creatinine 0.89 0.60 - 1.10 mg/dL [facility] Glucose 175 70 - 199 mg/dL [facility] Comment: Interpretive Data Fasting glucose >/= 126 mg/dl is diagnostic for diabetes. ?? Fasting is defined as no caloric intake for at least 8 hours. Fasting glucose between 100 mg/dl to 125 mg/dl is diagnostic of prediabetes. In a patient with classic symptoms of hyperglycemia or hyperglycemic crisis, a random glucose >/= 200 mg/dl is diagnostic for diabetes. In the absence of unequivocal hyperglycemia, results should be confirmed by repeat testing. The classification and Diagnosis of Diabetes Diabetes Care 2022; 46: S19-S40. Current interpretive data was last revised 2022. Calcium 9.4 8.5 - 10.3 mg/dL [facility] Blood 12/11/2022 10:0 9 AM CDT 12/11/2022 10:42 AM CDT us Kirsten Martins MD LAB BLOOD ORDERABLES Final Resul t Performing Organization Address City/[facility] Co de Phone Number [facility] Department [place] [address] * POCT glucose (12/11/2022 7:58 AM CDT) Glucose, POC 122 70 - 199 mg/dL [facility] Blood 12/11/2022 7:58 AM CDT 12/11/2022 7:58 AM CDT us Kirsten Martins MD LAB POCT ORDERABLES - DEVICE Fin al Result Performing Organization Address [facility] de Phone Number [facility] Department [place] [address] * (ABNORMAL) eGFR (12/10/2022 8:49 PM CDT) eGFR 52(L) 90 - 130 mL/min/1. [address] [facility] Comment: Interpretive Data Reference Interval Normal ?>/= 90 mL/min/1.73m2 Mildly decreased* ? 60 - 89 mL/min/1.73m2 Mildly to moderately decreased ?45 - 59 mL/min/1.73m2 Moderately to severely decreased ??30 - 44 mL/min/1.73m2 Severely decreased ?15 - 29 mL/min/1.73m2 Kidney Failure ?< 15 ??mL/min/1.73m2 *Relative to young adult level Estimated glomerular filtration rate is determined by the 2020 CKD-EPI equation recommended by the National Kidney Foundation (A Unifying Approach to GFR Estimation: Recommendations of the NKF-ASK Task Force on Reassessing the Inclusion of Race in Diagnosing Kidney Disease, JASN 202). The CKD-EPI equation should not be used for patients with unstable renal function and has not been validated in children and those over 70. Current interpretive data was last reviewed 2021. Blood 12/10/2022 8:49 PM CDT 12/10/2022 9:23 PM CDT us Kirsten Martins MD LAB BLOOD ORDERABLES Final Resul t Performing Organization Address [facility] de Phone Number [facility] [place] [address] * Phosphorus (12/10/2022 8:49 PM CDT) Phosphorus, pl 3.9 2.3 - 4.5 mg/dL [facility] Blood 12/10/2022 8:49 PM CDT 12/10/2022 9:23 PM CDT us Kirsten Martins MD LAB BLOOD ORDERABLES Final Resul t Performing Organization Address [facility] de Phone Number [facility] Department of [address] [place] [address] * Magnesium (12/10/2022 8:49 PM CDT) Magnesium 2.3 1.4 - 2.5 mg/dL [facility] Blood 12/10/2022 8:49 PM CDT 12/10/2022 9:23 PM CDT Kirsten Martins MD LAB BLOOD ORDERABLES Final Resul t [facility] Department [place] [address] * (ABNORMAL) Basic metabolic panel (12/10/2022 8:49 PM CDT) Sodium 141 135 - 145 mmol/L [facility] Potassium, pl 4.2 3.3 - 4.9 mmol/L [facility] Chloride 103 97 - 110 mmol/L [facility] CO2 29 22 - 32 mmol/L [facility] Anion gap 9 2 - 15 mmol/L [facility] BUN 13 8 - 25 mg/dL [facility] Creatinine 1.15(H) 0.60 - 1.10 mg/dL [facility] Glucose 137 70 - 199 mg/dL [facility] Comment: Interpretive Data Fasting glucose >/= 126 mg/dl is diagnostic for diabetes. ?? Fasting is defined as no caloric intake for at least 8 hours. Fasting glucose between 100 mg/dl to 125 mg/dl is diagnostic of prediabetes. In a patient with classic symptoms of hyperglycemia or hyperglycemic crisis, a random glucose >/= 200 mg/dl is diagnostic for diabetes. In the absence of unequivocal hyperglycemia, results should be confirmed by repeat testing. The classification and Diagnosis of Diabetes Diabetes Care 202; 46: S19-S40. Current interpretive data was last revised 2022. Calcium 9.8 8.5 - 10.3 mg/dL [facility] Blood 12/10/2022 8:49 PM CDT 12/10/2022 9:23 PM CDT us Kirsten Martins MD LAB BLOOD ORDERABLES Final Resul t [facility] Department [place] [address] * POCT glucose (12/10/2022 7:43 PM CDT) Glucose, POC 167 70 - 199 mg/dL [facility] Blood 12/10/2022 7:43 PM CDT 12/10/2022 7:43 PM CDT us Kirsten Martins MD LAB POCT ORDERABLES - DEVICE Fin al Result Performing Organization Address City/[facility] Co de Phone Number [facility] [place] [address] * POCT glucose (12/10/2022 5:47 PM CDT) Pathologist [facility] Glucose, POC 140 70 - 199 mg/dL [facility] Blood 12/10/2022 5:47 PM CDT 12/10/2022 5:47 PM CDT us Kirsten Martins MD LAB POCT ORDERABLES - DEVICE Fin al Result Performing Organization Address [facility] de Phone Number [facility] [place] [address] * ECG 12 lead (12/10/2022 3:55 PM CDT) [facility] Signature Ventricular Rate EKG/Min 72 BPM [facility] Atrial Rate 72 BPM [facility] GA-Interval (MSEC) 144 ms [facility] QRS-Interval (MSEC) 78 ms [facility] QT-Interval (MSEC) 428 ms [facility] QTc 468 ms [facility] P Pipestem 62 degrees [facility] R Pipestem 26 degrees [facility] T Pipestem 8 degrees [facility] Diagnosis Normal sinus rhythm Normal ECG When compared with ECG of 06-DEC-2022 09:28, Sinus rhythm has replaced Atrial flutter Vent. rate has decreased BY ??[address] no longer depressed in Inferior leads ST no longer depressed in Anterolateral leads T wave inversion less evident in Inferior leads Nonspecific T wave abnormality has replaced inverted T waves in Lateral leads Confirmed by SANDRINE RHODES M.D ([id number]) on 12/12/2022 9:25:50 AM [facility] 12/10/2022 3:55 PM CDT 12/12/2022 9:25 AM CDT us Kirsten Martins MD ECG ORDERABLES Final Result [facility] * POCT glucose (12/10/2022 11:26 AM CDT) Glucose, POC 122 70 - 199 mg/dL [facility] Blood 12/10/2022 11:2 6 AM CDT 12/10/2022 11:26 AM CDT us Kirsten Martins MD LAB POCT ORDERABLES - DEVICE Fin al Result [facility] Department [place] [address] * (ABNORMAL) eGFR (12/10/2022 9:36 AM CDT) eGFR 62(L) 90 - 130 mL/min/1. [address] [facility] Comment: Interpretive Data Reference Interval Normal ?>/= 90 mL/min/1.73m2 Mildly decreased* ? 60 - 89 mL/min/1.73m2 Mildly to moderately decreased ?45 - 59 mL/min/1.73m2 Moderately to severely decreased ??30 - 44 mL/min/1.73m2 Severely decreased ?15 - 29 mL/min/1.73m2 Kidney Failure ?< 15 ??mL/min/1.73m2 *Relative to young adult level Estimated glomerular filtration rate is determined by the 2020 CKD-EPI equation recommended by the National Kidney Foundation (A Unifying Approach to GFR Estimation: Recommendations of the NKF-ASK Task Force on Reassessing the Inclusion of Race in Diagnosing Kidney Disease, JASN 202). The CKD-EPI equation should not be used for patients with unstable renal function and has not been validated in children and those over 70. Current interpretive data was last reviewed 2021. Blood 12/10/2022 9:36 AM CDT 12/10/2022 9:51 AM CDT us Kirsten Martins MD LAB BLOOD ORDERABLES Final Resul t [facility] Department [place] [address] * (ABNORMAL) Differential, auto (12/10/2022 9:36 AM CDT) Neutrophil abs 11.2(H) 1.7 - 6.5 K/cumm [facility] Imm gran abs 0.1 0.0 - 0.1 K/cumm [facility] Lymphocyte abs 1.1 0.8 - 3.3 K/cumm [facility] Monocyte abs 1.0(H) 0.2 - 0.8 K/cumm [facility] Eosinophil abs 0.2 0.0 - 0.5 K/cumm [facility] Basophil abs 0.0 0.0 - 0.1 K/cumm [facility] Neutrophil pct 82.1 % [facility] Comment: Interpretive Data Percent cell count reference ranges are not reported, since discordance with absolute values may lead to misinterpretation of CBC data. Current Interpretive Data was last revised on 2017. Imm gran pct 0.4 % [facility] Comment: Interpretive Data Percent cell count reference ranges are not reported, since discordance with absolute values may lead to misinterpretation of CBC data. Current Interpretive Data was last revised on 2017. Lymphocyte pct 7.8 % [facility] Comment: Interpretive Data Percent cell count reference ranges are not reported, since discordance with absolute values may lead to misinterpretation of CBC data. Current Interpretive Data was last revised on 2017. Monocyte pct 7.6 % [facility] Comment: Interpretive Data Percent cell count reference ranges are not reported, since discordance with absolute values may lead to misinterpretation of CBC data. Current Interpretive Data was last revised on 2017. Eosinophil pct 1.8 % [facility] Comment: Interpretive Data Percent cell count reference ranges are not reported, since discordance with absolute values may lead to misinterpretation of CBC data. Current Interpretive Data was last revised on 2017. Basophil pct 0.3 % [facility] Comment: Interpretive Data Percent cell count reference ranges are not reported, since discordance with absolute values may lead to misinterpretation of CBC data. Current Interpretive Data was last revised on 2017. Blood 12/10/2022 9:36 AM CDT 12/10/2022 9:51 AM CDT us Kirsten Martins MD LAB BLOOD ORDERABLES Final Resul t [facility] Department [place] [address] * (ABNORMAL) CBC with auto differential (12/10/2022 9:36 AM CDT) WBC 13.6(H) 3.8 - 9.9 K/cumm [facility] Hgb 9.4(L) 11.9 - 15.5 g/dL [facility] Hct 28.0(L) 35.6 - 45.5 % [facility] Plt 349 150 - 400 K/cumm [facility] MPV 11.3 9.1 - 12.[address] [facility] RBC 2.95(L) 3.90 - 5.20 M/cumm [facility] MCV 94.9 81.3 - 96.[address] [facility] MCH 31.9 27.1 - 33.[address] [facility] MCHC 33.6 32.3 - 35.7 g/dL [facility] RDW CV 14.6 11.1 - 14.9 % [facility] RDW SD 50.6(H) 35.7 - 48.[address] [facility] NRBC abs 0.00 0.00 - 0.01 K/cumm [facility] Blood 12/10/2022 9:36 AM CDT 12/10/2022 9:51 AM CDT us Kirsten Martins MD LAB BLOOD ORDERABLES Final Resul t Performing Organization Address City/[facility] Co de Phone Number [facility] [place] [address] * Phosphorus (12/10/2022 9:36 AM CDT) Phosphorus, pl 2.6 2.3 - 4.5 mg/dL [facility] Blood 12/10/2022 9:36 AM CDT 12/10/2022 9:51 AM CDT us Kirsten Martins MD LAB BLOOD ORDERABLES Final Resul t Performing Organization Address [facility] de Phone Number [facility] [place] [address] * Magnesium (12/10/2022 9:36 AM CDT) Pathologist [facility] Magnesium 1.8 1.4 - 2.5 mg/dL [facility] Blood 12/10/2022 9:36 AM CDT 12/10/2022 9:51 AM CDT us Kirsten Martins MD LAB BLOOD ORDERABLES Final Resul t Performing Organization Address [facility] Co de Phone Number [facility] [place] [address] * Basic metabolic panel (12/10/2022 9:36 AM CDT) Sodium 137 135 - 145 mmol/L [facility] Potassium, pl 4.0 3.3 - 4.9 mmol/L [facility] Chloride 101 97 - 110 mmol/L [facility] CO2 29 22 - 32 mmol/L [facility] Anion gap 7 2 - 15 mmol/L [facility] BUN 14 8 - 25 mg/dL [facility] Creatinine 0.99 0.60 - 1.10 mg/dL [facility] Glucose 172 70 - 199 mg/dL [facility] Comment: Interpretive Data Fasting glucose >/= 126 mg/dl is diagnostic for diabetes. ?? Fasting is defined as no caloric intake for at least 8 hours. Fasting glucose between 100 mg/dl to 125 mg/dl is diagnostic of prediabetes. In a patient with classic symptoms of hyperglycemia or hyperglycemic crisis, a random glucose >/= 200 mg/dl is diagnostic for diabetes. In the absence of unequivocal hyperglycemia, results should be confirmed by repeat testing. The classification and Diagnosis of Diabetes Diabetes Care 2021; 46: S19-S40. Current interpretive data was last revised 2022. Calcium 9.4 8.5 - 10.3 mg/dL [facility] Blood 12/10/2022 9:36 AM CDT 12/10/2022 9:51 AM CDT us Kirsten Martins MD LAB BLOOD ORDERABLES Final Resul t Performing Organization Address City/[facility]/ZIP Co de Phone Number [facility] Department of [address] [place] [address] * POCT glucose (12/10/2022 8:00 AM CDT) Glucose, POC 155 70 - 199 mg/dL [facility] Blood 12/10/2022 8:00 AM CDT 12/10/2022 8:00 AM CDT Kirsten Martins MD LAB POCT ORDERABLES - DEVICE Fin al Result Performing Organization Address [facility] Co de Phone Number [facility] Department [place] [address] * (ABNORMAL) eGFR (12/09/2022 8:55 PM CDT) eGFR 43(L) 90 - 130 mL/min/1. [address] [facility] Comment: Interpretive Data Reference Interval Normal ?>/= 90 mL/min/1.73m2 Mildly decreased* ? 60 - 89 mL/min/1.73m2 Mildly to moderately decreased ?45 - 59 mL/min/1.73m2 Moderately to severely decreased ??30 - 44 mL/min/1.73m2 Severely decreased ?15 - 29 mL/min/1.73m2 Kidney Failure ?< 15 ??mL/min/1.73m2 *Relative to young adult level Estimated glomerular filtration rate is determined by the 2020 CKD-EPI equation recommended by the National Kidney Foundation (A Unifying Approach to GFR Estimation: Recommendations of the NKF-ASK Task Force on Reassessing the Inclusion of Race in Diagnosing Kidney Disease, JASN 2020). The CKD-EPI equation should not be used for patients with unstable renal function and has not been validated in children and those over 70. Current interpretive data was last reviewed 2021. Blood 12/09/2022 8:55 PM CDT 12/09/2022 10:10 PM CDT us Kirsten Martins MD LAB BLOOD ORDERABLES Final Resul t [facility] Department [place] [address] * (ABNORMAL) CBC without differential (12/09/2022 8:55 PM CDT) [facility] WBC 12.4(H) 3.8 - 9.9 K/cumm [facility] Hgb 9.6(L) 11.9 - 15.5 g/dL [facility] Hct 29.1(L) 35.6 - 45.5 % [facility] Plt 358 150 - 400 K/cumm [facility] MPV 11.7 9.1 - 12.[address] [facility] RBC 3.05(L) 3.90 - 5.20 M/cumm [facility] MCV 95.4 81.3 - 96.[address] [facility] MCH 31.5 27.1 - 33.[address] [facility] MCHC 33.0 32.3 - 35.7 g/dL [facility] RDW CV 14.8 11.1 - 14.9 % [facility] RDW SD 51.6(H) 35.7 - 48.[address] [facility] NRBC abs 0.00 0.00 - 0.01 K/cumm [facility] Blood 12/09/2022 8:55 PM CDT 12/09/2022 10:13 PM CDT us Kirsten Martins MD LAB BLOOD ORDERABLES Final Resul t Performing Organization Address City/[facility] Co de Phone Number [facility] Department [place] [address] * Phosphorus (12/09/2022 8:55 PM CDT) Phosphorus, pl 4.1 2.3 - 4.5 mg/dL [facility] Blood 12/09/2022 8:55 PM CDT 12/09/2022 10:10 PM CDT us Kirsten Martins MD LAB BLOOD ORDERABLES Final Resul t Performing Organization Address City/[facility] Co de Phone Number [facility] Department [place] [address] * Magnesium (12/09/2022 8:55 PM CDT) Magnesium 2.0 1.4 - 2.5 mg/dL [facility] Blood 12/09/2022 8:55 PM CDT 12/09/2022 10:10 PM CDT us Kirsten Martins MD LAB BLOOD ORDERABLES Final Resul t Performing Organization Address City/[facility] Co de Phone Number [facility] Department [place] [address] * (ABNORMAL) Basic metabolic panel (12/09/2022 8:55 PM CDT) Sodium 141 135 - 145 mmol/L [facility] Potassium, pl 4.2 3.3 - 4.9 mmol/L [facility] Chloride 102 97 - 110 mmol/L [facility] CO2 31 22 - 32 mmol/L [facility] Anion gap 8 2 - 15 mmol/L [facility] BUN 15 8 - 25 mg/dL [facility] Creatinine 1.35(H) 0.60 - 1.10 mg/dL [facility] Glucose 146 70 - 199 mg/dL [facility] Comment: Interpretive Data Fasting glucose >/= 126 mg/dl is diagnostic for diabetes. ?? Fasting is defined as no caloric intake for at least 8 hours. Fasting glucose between 100 mg/dl to 125 mg/dl is diagnostic of prediabetes. In a patient with classic symptoms of hyperglycemia or hyperglycemic crisis, a random glucose >/= 200 mg/dl is diagnostic for diabetes. In the absence of unequivocal hyperglycemia, results should be confirmed by repeat testing. The classification and Diagnosis of Diabetes Diabetes Care 2021; 46: S19-S40. Current interpretive data was last revised 2022. Calcium 9.1 8.5 - 10.3 mg/dL [facility] Blood 12/09/2022 8:55 PM CDT 12/09/2022 10:10 PM CDT us Kirsten Martins MD LAB BLOOD ORDERABLES Final Resul t [facility] Department [place] [address] * POCT glucose (12/09/2022 8:17 PM CDT) Glucose, POC 141 70 - 199 mg/dL [facility] Blood 12/09/2022 8:17 PM CDT 12/09/2022 8:17 PM CDT us Kirsten Martins MD LAB POCT ORDERABLES - DEVICE Fin al Result Performing Organization Address [facility] de Phone Number [facility] [address] [place] [address] * POCT glucose (12/09/2022 5:05 PM CDT) Glucose, POC 111 70 - 199 mg/dL [facility] Blood 12/09/2022 5:05 PM CDT 12/09/2022 5:05 PM CDT Kirsten Martins MD LAB POCT ORDERABLES - DEVICE Fin al Result Performing Organization Address [facility] [place] [address] * POCT glucose (12/09/2022 11:46 AM CDT) Glucose, POC 164 70 - 199 mg/dL [facility] Blood 12/09/2022 11:4 6 AM CDT 12/09/2022 11:46 AM CDT Kirsten Martins MD LAB POCT ORDERABLES - DEVICE Fin al Result Performing Organization Address [facility] de Phone Number [facility] [address] [place] [address] * (ABNORMAL) eGFR (12/09/2022 8:48 AM CDT) eGFR 66(L) 90 - 130 mL/min/1. [address] [facility] Comment: Interpretive Data Reference Interval Normal ?>/= 90 mL/min/1.73m2 Mildly decreased* ? 60 - 89 mL/min/1.73m2 Mildly to moderately decreased ?45 - 59 mL/min/1.73m2 Moderately to severely decreased ??30 - 44 mL/min/1.73m2 Severely decreased ?15 - 29 mL/min/1.73m2 Kidney Failure ?< 15 ??mL/min/1.73m2 *Relative to young adult level Estimated glomerular filtration rate is determined by the 2020 CKD-EPI equation recommended by the National Kidney Foundation (A Unifying Approach to GFR Estimation: Recommendations of the NKF-ASK Task Force on Reassessing the Inclusion of Race in Diagnosing Kidney Disease, JASN 2020). The CKD-EPI equation should not be used for patients with unstable renal function and has not been validated in children and those over 70. Current interpretive data was last reviewed 2021. Blood 12/09/2022 8:48 AM CDT 12/09/2022 9:27 AM CDT us Kirsten Martins MD LAB BLOOD ORDERABLES Final Resul t Performing Organization Address City/[facility]/ZIP Co de Phone Number [facility] Department of [address] [place] [address] * Phosphorus (12/09/2022 8:48 AM CDT) Phosphorus, pl 3.0 2.3 - 4.5 mg/dL [facility] Blood 12/09/2022 8:48 AM CDT 12/09/2022 9:12 AM CDT us Kirsten Martins MD LAB BLOOD ORDERABLES Final Resul t [facility] [address] [place] [address] * Magnesium (12/09/2022 8:48 AM CDT) Magnesium 1.8 1.4 - 2.5 mg/dL [facility] Blood 12/09/2022 8:48 AM CDT 12/09/2022 9:12 AM CDT us Kirsten Martins MD LAB BLOOD ORDERABLES Final Resul t Performing Organization Address [facility] Co sd Phone Number [facility] Department [place] [address] * Basic metabolic panel (12/09/2022 8:48 AM CDT) Pathologist [facility] Sodium 140 135 - 145 mmol/L [facility] Potassium, pl 4.4 3.3 - 4.9 mmol/L [facility] Comment:Hemolyzed; Potassium value may be falsely elevated by as much as 0.3-0.5 mmol/L. Suggest redraw and reanalysis. Chloride 102 97 - 110 mmol/L [facility] CO2 31 22 - 32 mmol/L [facility] Anion gap 7 2 - 15 mmol/L [facility] BUN 13 8 - 25 mg/dL [facility] Creatinine 0.94 0.60 - 1.10 mg/dL [facility] Glucose 150 70 - 199 mg/dL [facility] Comment: Interpretive Data Fasting glucose >/= 126 mg/dl is diagnostic for diabetes. ?? Fasting is defined as no caloric intake for at least 8 hours. Fasting glucose between 100 mg/dl to 125 mg/dl is diagnostic of prediabetes. In a patient with classic symptoms of hyperglycemia or hyperglycemic crisis, a random glucose >/= 200 mg/dl is diagnostic for diabetes. In the absence of unequivocal hyperglycemia, results should be confirmed by repeat testing. The classification and Diagnosis of Diabetes Diabetes Care 2021; 46: S19-S40. Current interpretive data was last revised 2022. Calcium 9.6 8.5 - 10.3 mg/dL [facility] Blood 12/09/2022 8:48 AM CDT 12/09/2022 9:12 AM CDT us Kirsten Martins MD LAB BLOOD ORDERABLES Final Resul t Performing Organization Address City/[facility]/ZIP Co de Phone Number [facility] Department [place] [address] * POCT glucose (12/09/2022 7:29 AM CDT) [facility] Glucose, POC 144 70 - 199 mg/dL [facility] Blood 12/09/2022 7:29 AM CDT 12/09/2022 7:29 AM CDT us Kirsten Martins MD LAB POCT ORDERABLES - DEVICE Fin al Result Performing Organization Address [facility] de Phone Number [facility] [place] [address] * Check Sample (12/08/2022 10:37 PM CDT) [facility] ABO Rh A Positive [facility] HCLL OTHER 12/08/2022 10:3 7 PM CDT 12/08/2022 11:35 PM CDT us Kirsten Martins MD LAB BLOOD ORDERABLES Final Resul t Performing Organization Address [facility] de Phone Number [facility] Department [place] [address] * (ABNORMAL) eGFR (12/08/2022 9:07 PM CDT) [facility] eGFR 51(L) 90 - 130 mL/min/1. [address] [facility] Comment: Interpretive Data Reference Interval Normal ?>/= 90 mL/min/1.73m2 Mildly decreased* ? 60 - 89 mL/min/1.73m2 Mildly to moderately decreased ?45 - 59 mL/min/1.73m2 Moderately to severely decreased ??30 - 44 mL/min/1.73m2 Severely decreased ?15 - 29 mL/min/1.73m2 Kidney Failure ?< 15 ??mL/min/1.73m2 *Relative to young adult level Estimated glomerular filtration rate is determined by the 2020 CKD-EPI equation recommended by the National Kidney Foundation (A Unifying Approach to GFR Estimation: Recommendations of the NKF-ASK Task Force on Reassessing the Inclusion of Race in Diagnosing Kidney Disease, JASN 2020). The CKD-EPI equation should not be used for patients with unstable renal function and has not been validated in children and those over 70. Current interpretive data was last reviewed 2021. Blood 12/08/2022 9:07 PM CDT 12/08/2022 9:56 PM CDT us Kirsten Martins MD LAB BLOOD ORDERABLES Final Resul t Performing Organization Address City/[facility]/ZIP Co de Phone Number [facility] Department [place] [address] * Type and screen (12/08/2022 9:07 PM CDT) Pathologist [facility] Suzette, indirect Negative [facility] ABO Rh A Positive [facility] Blood 12/08/2022 9:07 PM CDT 12/08/2022 9:54 PM CDT Narrative [facility] - 12/08/2022 11:00 PM CDT Has the patient had Daratumumab or Isatuximab in the past 6 months?->Unknown us Kirsten Martins MD LAB BLOOD BANK TEST ORDERABLES F inal Result [facility] Department [place] [address] * Phosphorus (12/08/2022 9:07 PM CDT) [facility]ologist [facility] Phosphorus, pl 3.9 2.3 - 4.5 mg/dL [facility] Blood 12/08/2022 9:07 PM CDT 12/08/2022 9:56 PM CDT Kirsten Martins MD LAB BLOOD ORDERABLES Final Resul t Performing Organization Address City/[facility] Co de Phone Number [facility] [place] [address] * Magnesium (12/08/2022 9:07 PM CDT) Pathologist [facility] Magnesium 2.1 1.4 - 2.5 mg/dL [facility] Blood 12/08/2022 9:07 PM CDT 12/08/2022 9:56 PM CDT Kirsten Martins MD LAB BLOOD ORDERABLES Final Resul t Performing Organization Address [facility] de Phone Number [facility] [place] [address] * (ABNORMAL) Basic metabolic panel (12/08/2022 9:07 PM CDT) [facility] Sodium 142 135 - 145 mmol/L [facility] Potassium, pl 4.3 3.3 - 4.9 mmol/L [facility] Chloride 104 97 - 110 mmol/L [facility] CO2 27 22 - 32 mmol/L [facility] Anion gap 11 2 - 15 mmol/L [facility] BUN 16 8 - 25 mg/dL [facility] Creatinine 1.16(H) 0.60 - 1.10 mg/dL [facility] Glucose 145 70 - 199 mg/dL [facility] Comment: Interpretive Data Fasting glucose >/= 126 mg/dl is diagnostic for diabetes. ?? Fasting is defined as no caloric intake for at least 8 hours. Fasting glucose between 100 mg/dl to 125 mg/dl is diagnostic of prediabetes. In a patient with classic symptoms of hyperglycemia or hyperglycemic crisis, a random glucose >/= 200 mg/dl is diagnostic for diabetes. In the absence of unequivocal hyperglycemia, results should be confirmed by repeat testing. The classification and Diagnosis of Diabetes Diabetes Care 2021; 46: S19-S40. Current interpretive data was last revised 2022. Calcium 9.2 8.5 - 10.3 mg/dL [facility] Blood 12/08/2022 9:07 PM CDT 12/08/2022 9:56 PM CDT us Kirsten Martins MD LAB BLOOD ORDERABLES Final Resul t Performing Organization Address City/[facility] Co de Phone Number [facility] [address] [place] [address] * POCT glucose (12/08/2022 7:53 PM CDT) Glucose, POC 133 70 - 199 mg/dL [facility] Blood 12/08/2022 7:53 PM CDT 12/08/2022 7:53 PM CDT us Kirsten Martins MD LAB POCT ORDERABLES - DEVICE Fin al Result Performing Organization Address [facility] Co de Phone Number [facility] Department of [address] [place] [address] * POCT glucose (12/08/2022 4:57 PM CDT) Glucose, POC 165 70 - 199 mg/dL [facility] Blood 12/08/2022 4:57 PM CDT 12/08/2022 4:57 PM CDT us Kirsten Martins MD LAB POCT ORDERABLES - DEVICE Fin al Result Performing Organization Address City/[facility] Co de Phone Number [facility] [address] [place] [address] * POCT glucose (12/08/2022 11:34 AM CDT) Glucose, POC 158 70 - 199 mg/dL [facility] Blood 12/08/2022 11:3 4 AM CDT 12/08/2022 11:34 AM CDT Kirsten Martins MD LAB POCT ORDERABLES - DEVICE Fin al Result Performing Organization Address [facility] Co de Phone Number [facility] Department [place] [address] * ECG 12 lead (12/08/2022 11:26 AM CDT) Pathologist [facility] Ventricular Rate EKG/Min 78 BPM [facility] Atrial Rate 78 BPM [facility] GA-Interval (MSEC) 140 ms [facility] QRS-Interval (MSEC) 80 ms [facility] QT-Interval (MSEC) 392 ms [facility] QTc 446 ms [facility] P Pipestem 50 degrees [facility] R Pipestem 35 degrees [facility] T Pipestem -7 degrees [facility] Diagnosis Normal sinus rhythm Nonspecific T wave abnormality When compared with ECG of 06-DEC-2022 09:28, Sinus rhythm has replaced Atrial flutter Vent. rate has decreased BY ??[address] no longer depressed in Inferior leads ST no longer depressed in Anterolateral leads T wave inversion no longer evident in Inferior leads T wave inversion no longer evident in Lateral leads Confirmed by DONALDO VALLE M.D ([id number]) on 12/15/2022 4:33:38 PM [facility] 12/08/2022 11:2 6 AM CDT 12/15/2022 4:33 PM CDT us Kirsten Martins MD ECG ORDERABLES Final Result Performing Organization Address [facility] Co de Phone Number [facility] * (ABNORMAL) eGFR (12/08/2022 9:08 AM CDT) Pathologist [facility] eGFR 68(L) 90 - 130 mL/min/1. [address] [facility] Comment: Interpretive Data Reference Interval Normal ?>/= 90 mL/min/1.73m2 Mildly decreased* ? 60 - 89 mL/min/1.73m2 Mildly to moderately decreased ?45 - 59 mL/min/1.73m2 Moderately to severely decreased ??30 - 44 mL/min/1.73m2 Severely decreased ?15 - 29 mL/min/1.73m2 Kidney Failure ?< 15 ??mL/min/1.73m2 *Relative to young adult level Estimated glomerular filtration rate is determined by the 2020 CKD-EPI equation recommended by the National Kidney Foundation (A Unifying Approach to GFR Estimation: Recommendations of the NKF-ASK Task Force on Reassessing the Inclusion of Race in Diagnosing Kidney Disease, JASN 2020). The CKD-EPI equation should not be used for patients with unstable renal function and has not been validated in children and those over 70. Current interpretive data was last reviewed 2021. Blood 12/08/2022 9:08 AM CDT 12/08/2022 10:03 AM CDT us Kirsten Martins MD LAB BLOOD ORDERABLES Final Resul t Performing Organization Address [facility] Co de Phone Number [facility] [address] [place] [address] * Phosphorus (12/08/2022 9:08 AM CDT) Phosphorus, pl 2.9 2.3 - 4.5 mg/dL [facility] Blood 12/08/2022 9:08 AM CDT 12/08/2022 9:46 AM CDT us Kirsten Martins MD LAB BLOOD ORDERABLES Final Resul t Performing Organization Address City/[facility] Co de Phone Number [facility] [address] [place] [address] * (ABNORMAL) Magnesium (12/08/2022 9:08 AM CDT) Magnesium 3.1(H) 1.4 - 2.5 mg/dL [facility] Blood 12/08/2022 9:08 AM CDT 12/08/2022 9:46 AM CDT Kirsten Martins MD LAB BLOOD ORDERABLES Final Resul t [facility] Department [place] [address] * Basic metabolic panel (12/08/2022 9:08 AM CDT) Pathologist [facility] Sodium 145 135 - 145 mmol/L [facility] Potassium, pl 3.9 3.3 - 4.9 mmol/L [facility] Chloride 104 97 - 110 mmol/L [facility] CO2 30 22 - 32 mmol/L [facility] Anion gap 11 2 - 15 mmol/L [facility] BUN 13 8 - 25 mg/dL [facility] Creatinine 0.91 0.60 - 1.10 mg/dL [facility] Glucose 180 70 - 199 mg/dL [facility] Comment: Interpretive Data Fasting glucose >/= 126 mg/dl is diagnostic for diabetes. ?? Fasting is defined as no caloric intake for at least 8 hours. Fasting glucose between 100 mg/dl to 125 mg/dl is diagnostic of prediabetes. In a patient with classic symptoms of hyperglycemia or hyperglycemic crisis, a random glucose >/= 200 mg/dl is diagnostic for diabetes. In the absence of unequivocal hyperglycemia, results should be confirmed by repeat testing. The classification and Diagnosis of Diabetes Diabetes Care 2021; 46: S19-S40. Current interpretive data was last revised 2022. Calcium 9.2 8.5 - 10.3 mg/dL [facility] Blood 12/08/2022 9:08 AM CDT 12/08/2022 9:46 AM CDT us Kirsten Martins MD LAB BLOOD ORDERABLES Final Resul t Performing Organization Address [facility] Co de Phone Number [facility] [address] [place] [address] * POCT glucose (12/08/2022 7:33 AM CDT) Pathologist [facility] Glucose, POC 164 70 - 199 mg/dL [facility] Blood 12/08/2022 7:33 AM CDT 12/08/2022 7:33 AM CDT Kirsten Martins MD LAB POCT ORDERABLES - DEVICE Fin al Result Performing Organization Address [facility] de Phone Number [facility] [place] [address] * (ABNORMAL) eGFR (12/08/2022 12:42 AM CDT) Pathologist [facility] eGFR 64(L) 90 - 130 mL/min/1. [address] [facility] Comment: Interpretive Data Reference Interval Normal ?>/= 90 mL/min/1.73m2 Mildly decreased* ? 60 - 89 mL/min/1.73m2 Mildly to moderately decreased ?45 - 59 mL/min/1.73m2 Moderately to severely decreased ??30 - 44 mL/min/1.73m2 Severely decreased ?15 - 29 mL/min/1.73m2 Kidney Failure ?< 15 ??mL/min/1.73m2 *Relative to young adult level Estimated glomerular filtration rate is determined by the 2020 CKD-EPI equation recommended by the National Kidney Foundation (A Unifying Approach to GFR Estimation: Recommendations of the NKF-ASK Task Force on Reassessing the Inclusion of Race in Diagnosing Kidney Disease, JASN 2020). The CKD-EPI equation should not be used for patients with unstable renal function and has not been validated in children and those over 70. Current interpretive data was last reviewed 2021. Blood 12/08/2022 12:4 2 AM CDT 12/08/2022 1:21 AM CDT Caridad Akhtar MD LAB BLOOD ORDERABLES Final Re sult Performing Organization Address City/[facility] Co de Phone Number [facility] [address] [place] [address] * Phosphorus (12/08/2022 12:42 AM CDT) Phosphorus, pl 3.6 2.3 - 4.5 mg/dL [facility] Blood 12/08/2022 12:4 2 AM CDT 12/08/2022 1:21 AM CDT Caridad Akhtar MD LAB BLOOD ORDERABLES Final Re sult Performing Organization Address [facility] [place] [address] * Magnesium (12/08/2022 12:42 AM CDT) Magnesium 1.8 1.4 - 2.5 mg/dL [facility] Blood 12/08/2022 12:4 2 AM CDT 12/08/2022 1:21 AM CDT Caridad Akhtar MD LAB BLOOD ORDERABLES Final Re sult Performing Organization Address City/[facility] [place] [address] * (ABNORMAL) Basic metabolic panel (12/08/2022 12:42 AM CDT) Sodium 140 135 - 145 mmol/L [facility] Potassium, pl 3.8 3.3 - 4.9 mmol/L [facility] Chloride 101 97 - 110 mmol/L [facility] CO2 33(H) 22 - 32 mmol/L [facility] Anion gap 6 2 - 15 mmol/L [facility] BUN 16 8 - 25 mg/dL [facility] Creatinine 0.96 0.60 - 1.10 mg/dL [facility] Glucose 181 70 - 199 mg/dL [facility] Comment: Interpretive Data Fasting glucose >/= 126 mg/dl is diagnostic for diabetes. ?? Fasting is defined as no caloric intake for at least 8 hours. Fasting glucose between 100 mg/dl to 125 mg/dl is diagnostic of prediabetes. In a patient with classic symptoms of hyperglycemia or hyperglycemic crisis, a random glucose >/= 200 mg/dl is diagnostic for diabetes. In the absence of unequivocal hyperglycemia, results should be confirmed by repeat testing. The classification and Diagnosis of Diabetes Diabetes Care 2021; 46: S19-S40. Current interpretive data was last revised 2022. Calcium 9.0 8.5 - 10.3 mg/dL [facility] Blood 12/08/2022 12:4 2 AM CDT 12/08/2022 1:21 AM CDT us Caridad Akhtar MD LAB BLOOD ORDERABLES Final Re sult [facility] Department [place] [address] * (ABNORMAL) eGFR (12/07/2022 9:10 PM CDT) eGFR 62(L) 90 - 130 mL/min/1. [address] [facility] Comment: Interpretive Data Reference Interval Normal ?>/= 90 mL/min/1.73m2 Mildly decreased* ? 60 - 89 mL/min/1.73m2 Mildly to moderately decreased ?45 - 59 mL/min/1.73m2 Moderately to severely decreased ??30 - 44 mL/min/1.73m2 Severely decreased ?15 - 29 mL/min/1.73m2 Kidney Failure ?< 15 ??mL/min/1.73m2 *Relative to young adult level Estimated glomerular filtration rate is determined by the 2020 CKD-EPI equation recommended by the National Kidney Foundation (A Unifying Approach to GFR Estimation: Recommendations of the NKF-ASK Task Force on Reassessing the Inclusion of Race in Diagnosing Kidney Disease, JASN 2020). The CKD-EPI equation should not be used for patients with unstable renal function and has not been validated in children and those over 70. Current interpretive data was last reviewed 2021. Blood 12/07/2022 9:10 PM CDT 12/07/2022 10:18 PM CDT us Caridad Akhtar MD LAB BLOOD ORDERABLES Final Re sult [facility] Department [place] [address] * (ABNORMAL) CBC without differential (12/07/2022 9:10 PM CDT) WBC 10.9(H) 3.8 - 9.9 K/cumm [facility] Hgb 10.3(L) 11.9 - 15.5 g/dL [facility] Hct 30.8(L) 35.6 - 45.5 % [facility] Plt 375 150 - 400 K/cumm [facility] MPV 12.0 9.1 - 12.[address] [facility] RBC 3.26(L) 3.90 - 5.20 M/cumm [facility] MCV 94.5 81.3 - 96.[address] [facility] MCH 31.6 27.1 - 33.[address] [facility] MCHC 33.4 32.3 - 35.7 g/dL [facility] RDW CV 14.6 11.1 - 14.9 % [facility] RDW SD 50.0(H) 35.7 - 48.[address] [facility] NRBC abs 0.00 0.00 - 0.01 K/cumm [facility] Blood 12/07/2022 9:1 0 PM CDT 12/07/2022 10:18 PM CDT us Kirsten Martins MD LAB BLOOD ORDERABLES Final Resul t Performing Organization Address [facility] Co de Phone Number [facility] [place] [address] * Phosphorus (12/07/2022 9:10 PM CDT) Phosphorus, pl 3.3 2.3 - 4.5 mg/dL [facility] Blood 12/07/2022 9:10 PM CDT 12/07/2022 10:18 PM CDT us Caridad Akhtar MD LAB BLOOD ORDERABLES Final Re sult Performing Organization Address [facility] Co de Phone Number [facility] Department [place] [address] * Magnesium (12/07/2022 9:10 PM CDT) Magnesium 1.8 1.4 - 2.5 mg/dL [facility] Blood 12/07/2022 9:10 PM CDT 12/07/2022 10:18 PM CDT Caridad Akhtar MD LAB BLOOD ORDERABLES Final Re sult Performing Organization Address [facility] Co de Phone Number [facility] [place] [address] * (ABNORMAL) Basic metabolic panel (12/07/2022 9:10 PM CDT) Sodium 142 135 - 145 mmol/L [facility] Potassium, pl 4.0 3.3 - 4.9 mmol/L [facility] Chloride 102 97 - 110 mmol/L [facility] CO2 32 22 - 32 mmol/L [facility] Anion gap 8 2 - 15 mmol/L [facility] BUN 17 8 - 25 mg/dL [facility] Creatinine 0.99 0.60 - 1.10 mg/dL [facility] Glucose 206(H) 70 - 199 mg/dL [facility] Comment: Interpretive Data Fasting glucose >/= 126 mg/dl is diagnostic for diabetes. ?? Fasting is defined as no caloric intake for at least 8 hours. Fasting glucose between 100 mg/dl to 125 mg/dl is diagnostic of prediabetes. In a patient with classic symptoms of hyperglycemia or hyperglycemic crisis, a random glucose >/= 200 mg/dl is diagnostic for diabetes. In the absence of unequivocal hyperglycemia, results should be confirmed by repeat testing. The classification and Diagnosis of Diabetes Diabetes Care 2021; 46: S19-S40. Current interpretive data was last revised 2022. Calcium 9.2 8.5 - 10.3 mg/dL [facility] Blood 12/07/2022 9:10 PM CDT 12/07/2022 10:18 PM CDT us Caridad Akhtar MD LAB BLOOD ORDERABLES Final Re sult Performing Organization Address City/[facility]/ZIP Co de Phone Number [facility] Department [place] [address] * (ABNORMAL) POCT glucose (12/07/2022 8:21 PM CDT) Glucose, POC 213(H) 70 - 199 mg/dL [facility] Blood 12/07/2022 8:21 PM CDT 12/07/2022 8:21 PM CDT us Kirsten Martins MD LAB POCT ORDERABLES - DEVICE Fin al Result [facility] Department [place] [address] * POCT glucose (12/07/2022 4:37 PM CDT) Glucose, POC 175 70 - 199 mg/dL [facility] Blood 12/07/2022 4:37 PM CDT 12/07/2022 4:37 PM CDT Kirsten Martins MD LAB POCT ORDERABLES - DEVICE Fin al Result Performing Organization Address [facility] [place] [address] * POCT glucose (12/07/2022 11:33 AM CDT) [facility] Signature Glucose, POC 180 70 - 199 mg/dL [facility] Blood 12/07/2022 11:3 3 AM CDT 12/07/2022 11:33 AM CDT us Kirsten Martins MD LAB POCT ORDERABLES - DEVICE Fin al Result Performing Organization Address [facility] de Phone Number [facility] Department [place] [address] * (ABNORMAL) eGFR (12/07/2022 10:55 AM CDT) eGFR 67(L) 90 - 130 mL/min/1. [address] [facility] Comment: Interpretive Data Reference Interval Normal ?>/= 90 mL/min/1.73m2 Mildly decreased* ? 60 - 89 mL/min/1.73m2 Mildly to moderately decreased ?45 - 59 mL/min/1.73m2 Moderately to severely decreased ??30 - 44 mL/min/1.73m2 Severely decreased ?15 - 29 mL/min/1.73m2 Kidney Failure ?< 15 ??mL/min/1.73m2 *Relative to young adult level Estimated glomerular filtration rate is determined by the 2020 CKD-EPI equation recommended by the National Kidney Foundation (A Unifying Approach to GFR Estimation: Recommendations of the NKF-ASK Task Force on Reassessing the Inclusion of Race in Diagnosing Kidney Disease, JASN 2020). The CKD-EPI equation should not be used for patients with unstable renal function and has not been validated in children and those over 70. Current interpretive data was last reviewed 2021. Blood 12/07/2022 10:5 5 AM CDT 12/07/2022 11:28 AM CDT Caridad Akhtar MD LAB BLOOD ORDERABLES Final Re sult Performing Organization Address [facility] Co de Phone Number [facility] Department [place] [address] * Phosphorus (12/07/2022 10:55 AM CDT) Phosphorus, pl 3.0 2.3 - 4.5 mg/dL [facility] Comment:Hemolyzed; result ma y be falsely elevated Blood 12/07/2022 10:5 5 AM CDT 12/07/2022 11:16 AM CDT Caridad Akhtar MD LAB BLOOD ORDERABLES Final Re sult Performing Organization Address [facility] [facility] de Phone Number [facility] Department [place] [address] * Magnesium (12/07/2022 10:55 AM CDT) Magnesium 2.1 1.4 - 2.5 mg/dL [facility] Blood 12/07/2022 10:5 5 AM CDT 12/07/2022 11:16 AM CDT Caridad Akhtar MD LAB BLOOD ORDERABLES Final Re sult [facility] Department [place] [address] * Basic metabolic panel (12/07/2022 10:55 AM CDT) [facility] Sodium 140 135 - 145 mmol/L [facility] Potassium, pl See Comment 3.3 - 4.9 mmol/L [facility] Comment:Credited; Hemolyzed Specimen Chloride 101 97 - 110 mmol/L [facility] CO2 29 22 - 32 mmol/L [facility] Anion gap 10 2 - 15 mmol/L [facility] BUN 13 8 - 25 mg/dL [facility] Creatinine 0.93 0.60 - 1.10 mg/dL [facility] Glucose 197 70 - 199 mg/dL [facility] Comment: Interpretive Data Fasting glucose >/= 126 mg/dl is diagnostic for diabetes. ?? Fasting is defined as no caloric intake for at least 8 hours. Fasting glucose between 100 mg/dl to 125 mg/dl is diagnostic of prediabetes. In a patient with classic symptoms of hyperglycemia or hyperglycemic crisis, a random glucose >/= 200 mg/dl is diagnostic for diabetes. In the absence of unequivocal hyperglycemia, results should be confirmed by repeat testing. The classification and Diagnosis of Diabetes Diabetes Care 202; 46: S19-S40. Current interpretive data was last revised 2022. Calcium 9.1 8.5 - 10.3 mg/dL [facility] Blood 12/07/2022 10:5 5 AM CDT 12/07/2022 11:16 AM CDT Caridad Akhtar MD LAB BLOOD ORDERABLES Final Re sult Performing Organization Address City/[facility]/ZIP Co de Phone Number [facility] Department [place] [address] * POCT glucose (12/07/2022 7:23 AM CDT) Glucose, POC 162 70 - 199 mg/dL [facility] Blood 12/07/2022 7:23 AM CDT 12/07/2022 7:23 AM CDT us Kirsten Martins MD LAB POCT ORDERABLES - DEVICE Fin al Result [facility] Department [place] [address] * (ABNORMAL) eGFR (12/06/2022 11:55 PM CDT) eGFR 53(L) 90 - 130 mL/min/1. [address] [facility] Comment: Interpretive Data Reference Interval Normal ?>/= 90 mL/min/1.73m2 Mildly decreased* ? 60 - 89 mL/min/1.73m2 Mildly to moderately decreased ?45 - 59 mL/min/1.73m2 Moderately to severely decreased ??30 - 44 mL/min/1.73m2 Severely decreased ?15 - 29 mL/min/1.73m2 Kidney Failure ?< 15 ??mL/min/1.73m2 *Relative to young adult level Estimated glomerular filtration rate is determined by the 2020 CKD-EPI equation recommended by the National Kidney Foundation (A Unifying Approach to GFR Estimation: Recommendations of the NKF-ASK Task Force on Reassessing the Inclusion of Race in Diagnosing Kidney Disease, JASN 2020). The CKD-EPI equation should not be used for patients with unstable renal function and has not been validated in children and those over 70. Current interpretive data was last reviewed 2021. Blood 12/06/2022 11:5 5 PM CDT 12/07/2022 12:51 AM CDT us Caridad Akhtar MD LAB BLOOD ORDERABLES Final Re sult Performing Organization Address [facility] Co de Phone Number [facility] [place] [address] * Phosphorus (12/06/2022 11:55 PM CDT) Pathologist [facility] Phosphorus, pl 3.6 2.3 - 4.5 mg/dL [facility] Blood 12/06/2022 11:5 5 PM CDT 12/07/2022 12:51 AM CDT Caridad Akhtar MD LAB BLOOD ORDERABLES Final Re sult Performing Organization Address [facility] Co de Phone Number [facility] Department [place] [address] * Magnesium (12/06/2022 11:55 PM CDT) [facility] Magnesium 1.8 1.4 - 2.5 mg/dL [facility] Blood 12/06/2022 11:5 5 PM CDT 12/07/2022 12:51 AM CDT Caridad Akhtar MD LAB BLOOD ORDERABLES Final Re sult Performing Organization Address [facility] de Phone Number [facility] [place] [address] * (ABNORMAL) Basic metabolic panel (12/06/2022 11:55 PM CDT) [facility] Sodium 142 135 - 145 mmol/L [facility] Potassium, pl 3.9 3.3 - 4.9 mmol/L [facility] Chloride 101 97 - 110 mmol/L [facility] CO2 34(H) 22 - 32 mmol/L [facility] Anion gap 7 2 - 15 mmol/L [facility] BUN 17 8 - 25 mg/dL [facility] Creatinine 1.13(H) 0.60 - 1.10 mg/dL [facility] Glucose 197 70 - 199 mg/dL [facility] Comment: Interpretive Data Fasting glucose >/= 126 mg/dl is diagnostic for diabetes. ?? Fasting is defined as no caloric intake for at least 8 hours. Fasting glucose between 100 mg/dl to 125 mg/dl is diagnostic of prediabetes. In a patient with classic symptoms of hyperglycemia or hyperglycemic crisis, a random glucose >/= 200 mg/dl is diagnostic for diabetes. In the absence of unequivocal hyperglycemia, results should be confirmed by repeat testing. The classification and Diagnosis of Diabetes Diabetes Care 2021; 46: S19-S40. Current interpretive data was last revised 2022. Calcium 9.1 8.5 - 10.3 mg/dL [facility] Blood 12/06/2022 11:5 5 PM CDT 12/07/2022 12:51 AM CDT us Caridad Akhtar MD LAB BLOOD ORDERABLES Final Re sult [facility] Department [place] [address] * (ABNORMAL) POCT glucose (12/06/2022 8:32 PM CDT) Glucose, POC 216(H) 70 - 199 mg/dL [facility] Blood 12/06/2022 8:32 PM CDT 12/06/2022 8:32 PM CDT us Kirsten Martins MD LAB POCT ORDERABLES - DEVICE Fin al Result [facility] Department [place] [address] * POCT glucose (12/06/2022 6:04 PM CDT) Glucose, POC 190 70 - 199 mg/dL [facility] Blood 12/06/2022 6:04 PM CDT 12/06/2022 6:04 PM CDT Kirsten Martins MD LAB POCT ORDERABLES - DEVICE Fin al Result Performing Organization Address City/State/[facility] Co de Phone Number [facility] Department [place] [address] * (ABNORMAL) eGFR (12/06/2022 4:48 PM CDT) [facility] eGFR 56(L) 90 - 130 mL/min/1. [address] [facility] Comment: Interpretive Data Reference Interval Normal ?>/= 90 mL/min/1.73m2 Mildly decreased* ? 60 - 89 mL/min/1.73m2 Mildly to moderately decreased ?45 - 59 mL/min/1.73m2 Moderately to severely decreased ??30 - 44 mL/min/1.73m2 Severely decreased ?15 - 29 mL/min/1.73m2 Kidney Failure ?< 15 ??mL/min/1.73m2 *Relative to young adult level Estimated glomerular filtration rate is determined by the 2020 CKD-EPI equation recommended by the National Kidney Foundation (A Unifying Approach to GFR Estimation: Recommendations of the NKF-ASK Task Force on Reassessing the Inclusion of Race in Diagnosing Kidney Disease, JASN 202). The CKD-EPI equation should not be used for patients with unstable renal function and has not been validated in children and those over 70. Current interpretive data was last reviewed 2021. Blood 12/06/2022 4:48 PM CDT 12/06/2022 5:41 PM CDT us Caridad Akhtar MD LAB BLOOD ORDERABLES Final Re sult Performing Organization Address City/[facility]/ZIP Co de Phone Number [facility] [address] [place] [address] * Phosphorus (12/06/2022 4:48 PM CDT) Pathologist [facility] Phosphorus, pl 2.5 2.3 - 4.5 mg/dL [facility] Blood 12/06/2022 4:48 PM CDT 12/06/2022 5:41 PM CDT Caridad Akhtar MD LAB BLOOD ORDERABLES Final Re sult Performing Organization Address [facility] Co de Phone Number [facility] [place] [address] * Magnesium (12/06/2022 4:48 PM CDT) [facility] Magnesium 1.8 1.4 - 2.5 mg/dL [facility] Blood 12/06/2022 4:48 PM CDT 12/06/2022 5:41 PM CDT Caridad Akhtar MD LAB BLOOD ORDERABLES Final Re sult Performing Organization Address [facility] Co de Phone Number [facility] [place] [address] * (ABNORMAL) Basic metabolic panel (12/06/2022 4:48 PM CDT) [facility] Sodium 141 135 - 145 mmol/L [facility] Potassium, pl 3.8 3.3 - 4.9 mmol/L [facility] Chloride 99 97 - 110 mmol/L [facility] CO2 33(H) 22 - 32 mmol/L [facility] Anion gap 9 2 - 15 mmol/L [facility] BUN 15 8 - 25 mg/dL [facility] Creatinine 1.08 0.60 - 1.10 mg/dL [facility] Glucose 159 70 - 199 mg/dL [facility] Comment: Interpretive Data Fasting glucose >/= 126 mg/dl is diagnostic for diabetes. ?? Fasting is defined as no caloric intake for at least 8 hours. Fasting glucose between 100 mg/dl to 125 mg/dl is diagnostic of prediabetes. In a patient with classic symptoms of hyperglycemia or hyperglycemic crisis, a random glucose >/= 200 mg/dl is diagnostic for diabetes. In the absence of unequivocal hyperglycemia, results should be confirmed by repeat testing. The classification and Diagnosis of Diabetes Diabetes Care 2021; 46: S19-S40. Current interpretive data was last revised 2022. Calcium 9.4 8.5 - 10.3 mg/dL [facility] Blood 12/06/2022 4:48 PM CDT 12/06/2022 5:41 PM CDT us Caridad Akhtar MD LAB BLOOD ORDERABLES Final Re sult Performing Organization Address City/[facility]/ZIP Co de Phone Number [facility] Department [place] [address] * (ABNORMAL) POCT glucose (12/06/2022 11:15 AM CDT) Glucose, POC 273(H) 70 - 199 mg/dL [facility] Blood 12/06/2022 11:1 5 AM CDT 12/06/2022 11:15 AM CDT us Kirsten Martins MD LAB POCT ORDERABLES - DEVICE Fin al Result Performing Organization Address City/[facility]/ZIP Co de Phone Number [facility] Department [place] [address] * (ABNORMAL) POCT glucose (12/06/2022 11:13 AM CDT) Glucose, POC 242(H) 70 - 199 mg/dL [facility] Blood 12/06/2022 11:1 3 AM CDT 12/06/2022 11:13 AM CDT us Kirsten Martins MD LAB POCT ORDERABLES - DEVICE Fin al Result Performing Organization Address [facility] Co de Phone Number [facility] Department [place] [address] * (ABNORMAL) eGFR (12/06/2022 10:29 AM CDT) eGFR 76(L) 90 - 130 mL/min/1. [address] [facility] Comment: Interpretive Data Reference Interval Normal ?>/= 90 mL/min/1.73m2 Mildly decreased* ? 60 - 89 mL/min/1.73m2 Mildly to moderately decreased ?45 - 59 mL/min/1.73m2 Moderately to severely decreased ??30 - 44 mL/min/1.73m2 Severely decreased ?15 - 29 mL/min/1.73m2 Kidney Failure ?< 15 ??mL/min/1.73m2 *Relative to young adult level Estimated glomerular filtration rate is determined by the 2020 CKD-EPI equation recommended by the National Kidney Foundation (A Unifying Approach to GFR Estimation: Recommendations of the NKF-ASK Task Force on Reassessing the Inclusion of Race in Diagnosing Kidney Disease, JASN 2020). The CKD-EPI equation should not be used for patients with unstable renal function and has not been validated in children and those over 70. Current interpretive data was last reviewed 2021. Blood 12/06/2022 10:2 9 AM CDT 12/06/2022 11:15 AM CDT us Caridad Akhtar MD LAB BLOOD ORDERABLES Final Re sult Performing Organization Address [facility]/ZIP Co de Phone Number [facility] Department [place] [address] * Phosphorus (12/06/2022 10:29 AM CDT) [facility] Phosphorus, pl 2.3 2.3 - 4.5 mg/dL [facility] Blood 12/06/2022 10:2 9 AM CDT 12/06/2022 11:15 AM CDT Caridad Akhtar MD LAB BLOOD ORDERABLES Final Re sult Performing Organization Address [facility]/ZIP Co de Phone Number [facility] Department [place] [address] * Magnesium (12/06/2022 10:29 AM CDT) [facility] Magnesium 2.0 1.4 - 2.5 mg/dL [facility] Blood 12/06/2022 10:2 9 AM CDT 12/06/2022 11:15 AM CDT Caridad Akhtar MD LAB BLOOD ORDERABLES Final Re sult Performing Organization Address [facility] Co de Phone Number [facility] Department [place] [address] * (ABNORMAL) Basic metabolic panel (12/06/2022 10:29 AM CDT) [facility] Sodium 138 135 - 145 mmol/L [facility] Potassium, pl 4.3 3.3 - 4.9 mmol/L [facility] Comment:Hemolyzed; Potassium value may be falsely elevated by as much as 0.3-0.5 mmol/L. Suggest redraw and reanalysis. Chloride 97 97 - 110 mmol/L [facility] CO2 33(H) 22 - 32 mmol/L [facility] Anion gap 8 2 - 15 mmol/L [facility] BUN 12 8 - 25 mg/dL [facility] Creatinine 0.83 0.60 - 1.10 mg/dL [facility] Glucose 325(H) 70 - 199 mg/dL [facility] Comment: Interpretive Data Fasting glucose >/= 126 mg/dl is diagnostic for diabetes. ?? Fasting is defined as no caloric intake for at least 8 hours. Fasting glucose between 100 mg/dl to 125 mg/dl is diagnostic of prediabetes. In a patient with classic symptoms of hyperglycemia or hyperglycemic crisis, a random glucose >/= 200 mg/dl is diagnostic for diabetes. In the absence of unequivocal hyperglycemia, results should be confirmed by repeat testing. The classification and Diagnosis of Diabetes Diabetes Care 2021; 46: S19-S40. Current interpretive data was last revised 2022. Calcium 8.9 8.5 - 10.3 mg/dL [facility] Blood 12/06/2022 10:2 9 AM CDT 12/06/2022 11:15 AM CDT us Caridad Akhtar MD LAB BLOOD ORDERABLES Final Re sult [facility] Department [place] [address] * ECG 12 lead (12/06/2022 9:28 AM CDT) Ventricular Rate EKG/Min 153 BPM [facility] Atrial Rate 306 BPM [facility] QRS-Interval (MSEC) 74 ms [facility] QT-Interval (MSEC) 170 ms [facility] QTc 271 ms [facility] P Pipestem -60 degrees [facility] R Pipestem 27 degrees [facility] T Pipestem 247 degrees [facility] Diagnosis Atrial flutter with 2:1 A-V conduction Cannot rule out Anterior infarct , age undetermined ST & T wave abnormality, consider lateral ischemia Abnormal ECG When compared with ECG of 06-DEC-2022 05:11, (unconfirmed) Atrial flutter has replaced Atrial fibrillation ST now depressed in Inferior leads T wave inversion now evident in Lateral leads Confirmed by ROMIE URRUTIA M.D ([id number]) on 12/06/2022 10:40:03 AM [facility] 12/06/2022 9:28 AM CDT 12/06/2022 10:40 AM CDT us Caridad Akhtar MD ECG ORDERABLES Final Result Performing Organization Address [facility] Co de Phone Number [facility] * POCT glucose (12/06/2022 8:37 AM CDT) Pathologist [facility] Glucose, POC 173 70 - 199 mg/dL [facility] Blood 12/06/2022 8:37 AM CDT 12/06/2022 8:37 AM CDT us Kirsten Martins MD LAB POCT ORDERABLES - DEVICE Fin al Result Performing Organization Address [facility] Co de Phone Number [facility] Department [place] [address] * ECG 12 lead (12/06/2022 5:11 AM CDT) [facility] Ventricular Rate EKG/Min 117 BPM [facility] Atrial Rate 163 BPM [facility] QRS-Interval (MSEC) 82 ms [facility] QT-Interval (MSEC) 352 ms [facility] QTc 491 ms [facility] R Pipestem 36 degrees [facility] T Pipestem -65 degrees [facility] Diagnosis Atrial fibrillation with rapid ventricular response ST & T wave abnormality, consider inferior ischemia Abnormal ECG When compared with ECG of 05-DEC-2022 19:41, (unconfirmed) No significant change was found Confirmed by ROMIE URRUTIA M.D ([id number]) on 12/06/2022 10:54:38 AM [facility] 12/06/2022 5:11 AM CDT 12/06/2022 10:54 AM CDT us Kirsten Martins MD ECG ORDERABLES Final Result Performing Organization Address [facility] Co de Phone Number [facility] * (ABNORMAL) Differential, auto (12/05/2022 8:44 PM CDT) Neutrophil abs 8.6(H) 1.7 - 6.5 K/cumm [facility] Imm gran abs 0.1 0.0 - 0.1 K/cumm [facility] Lymphocyte abs 2.4 0.8 - 3.3 K/cumm [facility] Monocyte abs 0.9(H) 0.2 - 0.8 K/cumm [facility] Eosinophil abs 0.3 0.0 - 0.5 K/cumm [facility] Basophil abs 0.1 0.0 - 0.1 K/cumm [facility] Neutrophil pct 69.9 % [facility] Comment: Interpretive Data Percent cell count reference ranges are not reported, since discordance with absolute values may lead to misinterpretation of CBC data. Current Interpretive Data was last revised on 2017. Imm gran pct 0.5 % [facility] Comment: Interpretive Data Percent cell count reference ranges are not reported, since discordance with absolute values may lead to misinterpretation of CBC data. Current Interpretive Data was last revised on 2017. Lymphocyte pct 19.1 % [facility] Comment: Interpretive Data Percent cell count reference ranges are not reported, since discordance with absolute values may lead to misinterpretation of CBC data. Current Interpretive Data was last revised on 2017. Monocyte pct 7.3 % [facility] Comment: Interpretive Data Percent cell count reference ranges are not reported, since discordance with absolute values may lead to misinterpretation of CBC data. Current Interpretive Data was last revised on 2017. Eosinophil pct 2.5 % [facility] Comment: Interpretive Data Percent cell count reference ranges are not reported, since discordance with absolute values may lead to misinterpretation of CBC data. Current Interpretive Data was last revised on 2017. Basophil pct 0.7 % [facility] Comment: Interpretive Data Percent cell count reference ranges are not reported, since discordance with absolute values may lead to misinterpretation of CBC data. Current Interpretive Data was last revised on 2017. Blood 12/05/2022 8:44 PM CDT 12/05/2022 9:22 PM CDT Caridad Akhtar MD LAB BLOOD ORDERABLES Final Re sult Performing Organization Address [facility] Co de Phone Number [facility] [place] [address] * (ABNORMAL) CBC with auto differential (12/05/2022 8:44 PM CDT) [facility] WBC 12.3(H) 3.8 - 9.9 K/cumm [facility] Hgb 10.5(L) 11.9 - 15.5 g/dL [facility] Hct 31.0(L) 35.6 - 45.5 % [facility] Plt 369 150 - 400 K/cumm [facility] MPV 12.3 9.1 - 12.[address] [facility] RBC 3.34(L) 3.90 - 5.20 M/cumm [facility] MCV 92.8 81.3 - 96.[address] [facility] MCH 31.4 27.1 - 33.[address] [facility] MCHC 33.9 32.3 - 35.7 g/dL [facility] RDW CV 14.3 11.1 - 14.9 % [facility] RDW SD 48.0 35.7 - 48.[address] [facility] NRBC abs 0.00 0.00 - 0.01 K/cumm [facility] Blood 12/05/2022 8:44 PM CDT 12/05/2022 9:22 PM CDT Caridad Akhtar MD LAB BLOOD ORDERABLES Final Re sult Performing Organization Address [facility]/ZIP Co de Phone Number [facility] Department [place] [address] * (ABNORMAL) eGFR (12/05/2022 8:42 PM CDT) Pathologist [facility] eGFR 60(L) 90 - 130 mL/min/1. [address] [facility] Comment: Interpretive Data Reference Interval Normal ?>/= 90 mL/min/1.73m2 Mildly decreased* ? 60 - 89 mL/min/1.73m2 Mildly to moderately decreased ?45 - 59 mL/min/1.73m2 Moderately to severely decreased ??30 - 44 mL/min/1.73m2 Severely decreased ?15 - 29 mL/min/1.73m2 Kidney Failure ?< 15 ??mL/min/1.73m2 *Relative to young adult level Estimated glomerular filtration rate is determined by the 2020 CKD-EPI equation recommended by the National Kidney Foundation (A Unifying Approach to GFR Estimation: Recommendations of the NKF-ASK Task Force on Reassessing the Inclusion of Race in Diagnosing Kidney Disease, JASN 2020). The CKD-EPI equation should not be used for patients with unstable renal function and has not been validated in children and those over 70. Current interpretive data was last reviewed 2021. Blood 12/05/2022 8:42 PM CDT 12/05/2022 9:23 PM CDT Caridad Akhtar MD LAB BLOOD ORDERABLES Final Re sult Performing Organization Address [facility] de Phone Number [facility] Department [place] [address] * Phosphorus (12/05/2022 8:42 PM CDT) Phosphorus, pl 2.7 2.3 - 4.5 mg/dL [facility] Blood 12/05/2022 8:42 PM CDT 12/05/2022 9:23 PM CDT Caridad Akhtar MD LAB BLOOD ORDERABLES Final Re sult Performing Organization Address [facility] de Phone Number [facility] Department [place] [address] * (ABNORMAL) Magnesium (12/05/2022 8:42 PM CDT) Magnesium 3.5(H) 1.4 - 2.5 mg/dL [facility] Comment:Reviewed Blood 12/05/2022 8:42 PM CDT 12/05/2022 9:23 PM CDT us Caridad Akhtar MD LAB BLOOD ORDERABLES Final Re sult [facility] Department [place] [address] * (ABNORMAL) Basic metabolic panel (12/05/2022 8:42 PM CDT) Sodium 140 135 - 145 mmol/L [facility] Potassium, pl 4.1 3.3 - 4.9 mmol/L [facility] Chloride 98 97 - 110 mmol/L [facility] CO2 35(H) 22 - 32 mmol/L [facility] Anion gap 7 2 - 15 mmol/L [facility] BUN 18 8 - 25 mg/dL [facility] Creatinine 1.01 0.60 - 1.10 mg/dL [facility] Glucose 246(H) 70 - 199 mg/dL [facility] Comment: Interpretive Data Fasting glucose >/= 126 mg/dl is diagnostic for diabetes. ?? Fasting is defined as no caloric intake for at least 8 hours. Fasting glucose between 100 mg/dl to 125 mg/dl is diagnostic of prediabetes. In a patient with classic symptoms of hyperglycemia or hyperglycemic crisis, a random glucose >/= 200 mg/dl is diagnostic for diabetes. In the absence of unequivocal hyperglycemia, results should be confirmed by repeat testing. The classification and Diagnosis of Diabetes Diabetes Care 2021; 46: S19-S40. Current interpretive data was last revised 2022. Calcium 9.4 8.5 - 10.3 mg/dL [facility] Blood 12/05/2022 8:42 PM CDT 12/05/2022 9:23 PM CDT Caridad Akhtar MD LAB BLOOD ORDERABLES Final Re sult Performing Organization Address [facility] [place] [address] * (ABNORMAL) POCT glucose (12/05/2022 8:40 PM CDT) Glucose, POC 226(H) 70 - 199 mg/dL [facility] Blood 12/05/2022 8:40 PM CDT 12/05/2022 8:40 PM CDT Caridad Akhtar MD LAB POCT ORDERABLES - DEVICE Final Result Performing Organization Address [facility] de Phone Number [facility] [address] [place] [address] * POCT glucose (12/05/2022 4:12 PM CDT) Glucose, POC 145 70 - 199 mg/dL [facility] Blood 12/05/2022 4:12 PM CDT 12/05/2022 4:12 PM CDT Caridad Akhtar MD LAB POCT ORDERABLES - DEVICE Final Result Performing Organization Address [facility] de Phone Number [facility] [address] [place] [address] * (ABNORMAL) eGFR (12/05/2022 3:03 PM CDT) eGFR 60(L) 90 - 130 mL/min/1. [address] [facility] Comment: Interpretive Data Reference Interval Normal ?>/= 90 mL/min/1.73m2 Mildly decreased* ? 60 - 89 mL/min/1.73m2 Mildly to moderately decreased ?45 - 59 mL/min/1.73m2 Moderately to severely decreased ??30 - 44 mL/min/1.73m2 Severely decreased ?15 - 29 mL/min/1.73m2 Kidney Failure ?< 15 ??mL/min/1.73m2 *Relative to young adult level Estimated glomerular filtration rate is determined by the 2020 CKD-EPI equation recommended by the National Kidney Foundation (A Unifying Approach to GFR Estimation: Recommendations of the NKF-ASK Task Force on Reassessing the Inclusion of Race in Diagnosing Kidney Disease, JASN 2020). The CKD-EPI equation should not be used for patients with unstable renal function and has not been validated in children and those over 70. Current interpretive data was last reviewed 2021. Blood 12/05/2022 3:03 PM CDT 12/05/2022 3:46 PM CDT us Caridad Akhtar MD LAB BLOOD ORDERABLES Final Re sult [facility] Department [place] [address] * (ABNORMAL) Hepatic function panel (12/05/2022 3:03 PM CDT) Bilirubin, total 0.2 0.1 - 1.2 mg/dL [facility] Bilirubin, direct <0.2 0.1 - 0.3 mg/dL [facility] Protein, pl 6.3(L) 6.5 - 8.5 g/dL [facility] Albumin 3.0(L) 3.5 - 5.0 g/dL [facility] Alk phos 87 40 - 130 Units/L [facility] ALT 18 7 - 45 Units/L [facility] AST 36 10 - 45 Units/L [facility] Comment:Hemolyzed; result ma y be falsely elevated Blood 12/05/2022 3:03 PM CDT 12/05/2022 3:41 PM CDT us Caridad Akhtar MD LAB BLOOD ORDERABLES Final Re sult Performing Organization Address [facility] Co de Phone Number [facility] [place] [address] * Phosphorus (12/05/2022 3:03 PM CDT) Pathologist [facility] Phosphorus, pl 2.4 2.3 - 4.5 mg/dL [facility] Blood 12/05/2022 3:03 PM CDT 12/05/2022 3:41 PM CDT us Caridad Akhtar MD LAB BLOOD ORDERABLES Final Re sult Performing Organization Address [facility] de Phone Number [facility] [address] [place] [address] * Magnesium (12/05/2022 3:03 PM CDT) [facility] Magnesium 1.7 1.4 - 2.5 mg/dL [facility] Blood 12/05/2022 3:03 PM CDT 12/05/2022 3:41 PM CDT Caridad Akhtar MD LAB BLOOD ORDERABLES Final Re sult Performing Organization Address [facility] de Phone Number [facility] [address] [place] [address] * (ABNORMAL) Basic metabolic panel (12/05/2022 3:03 PM CDT) [facility] Sodium 141 135 - 145 mmol/L [facility] Potassium, pl 4.0 3.3 - 4.9 mmol/L [facility] Comment:Hemolyzed; Potassium value may be falsely elevated by as much as 0.3-0.5 mmol/L. Suggest redraw and reanalysis. Chloride 99 97 - 110 mmol/L [facility] CO2 37(H) 22 - 32 mmol/L [facility] Anion gap 5 2 - 15 mmol/L [facility] BUN 19 8 - 25 mg/dL [facility] Creatinine 1.01 0.60 - 1.10 mg/dL [facility] Glucose 183 70 - 199 mg/dL [facility] Comment: Interpretive Data Fasting glucose >/= 126 mg/dl is diagnostic for diabetes. ?? Fasting is defined as no caloric intake for at least 8 hours. Fasting glucose between 100 mg/dl to 125 mg/dl is diagnostic of prediabetes. In a patient with classic symptoms of hyperglycemia or hyperglycemic crisis, a random glucose >/= 200 mg/dl is diagnostic for diabetes. In the absence of unequivocal hyperglycemia, results should be confirmed by repeat testing. The classification and Diagnosis of Diabetes Diabetes Care 2021; 46: S19-S40. Current interpretive data was last revised 2022. Calcium 8.9 8.5 - 10.3 mg/dL [facility] Blood 12/05/2022 3:03 PM CDT 12/05/2022 3:41 PM CDT Caridad Akhtar MD LAB BLOOD ORDERABLES Final Re sult Performing Organization Address City/[facility]/ZIP Co de Phone Number [facility] Department [place] [address] * (ABNORMAL) POCT glucose (12/05/2022 11:37 AM CDT) Glucose, POC 298(H) 70 - 199 mg/dL [facility] Blood 12/05/2022 11:3 7 AM CDT 12/05/2022 11:37 AM CDT Caridad Akhtar MD LAB POCT ORDERABLES - DEVICE Final Result Performing Organization Address City/[facility]/ZIP Co de Phone Number [facility] Department [place] [address] * ECG 12 lead (12/05/2022 11:05 AM CDT) Pathologist [facility] Ventricular Rate EKG/Min 79 BPM [facility] Atrial Rate 79 BPM [facility] GA-Interval (MSEC) 130 ms [facility] QRS-Interval (MSEC) 84 ms [facility] QT-Interval (MSEC) 372 ms [facility] QTc 426 ms [facility] P Pipestem 57 degrees [facility] R Pipestem 38 degrees [facility] T Pipestem -60 degrees [facility] Diagnosis Normal sinus rhythm ST & T wave abnormality, consider inferior ischemia Abnormal ECG When compared with ECG of 05-DEC-2022 04:23, (unconfirmed) Sinus rhythm has replaced Atrial fibrillation Vent. rate has decreased BY ??[address] no longer depressed in Anterior leads Nonspecific T wave abnormality has replaced inverted T waves in Lateral leads Confirmed by SANDRINE RHODES M.D ([id number]) on 12/06/2022 11:37:23 AM [facility] 12/05/2022 11:0 5 AM CDT 12/06/2022 11:37 AM CDT us Caridad Akhtar MD ECG ORDERABLES Final Result [facility] * (ABNORMAL) eGFR (12/05/2022 8:48 AM CDT) Pathologist [facility] eGFR 60(L) 90 - 130 mL/min/1. 73 m2 [facility] Comment: Interpretive Data Reference Interval Normal ?>/= 90 mL/min/1.73m2 Mildly decreased* ? 60 - 89 mL/min/1.73m2 Mildly to moderately decreased ?45 - 59 mL/min/1.73m2 Moderately to severely decreased ??30 - 44 mL/min/1.73m2 Severely decreased ?15 - 29 mL/min/1.73m2 Kidney Failure ?< 15 ??mL/min/1.73m2 *Relative to young adult level Estimated glomerular filtration rate is determined by the 2020 CKD-EPI equation recommended by the National Kidney Foundation (A Unifying Approach to GFR Estimation: Recommendations of the NKF-ASK Task Force on Reassessing the Inclusion of Race in Diagnosing Kidney Disease, JASN 2020). The CKD-EPI equation should not be used for patients with unstable renal function and has not been validated in children and those over 70. Current interpretive data was last reviewed 2021. Blood 12/05/2022 8:48 AM CDT 12/05/2022 9:29 AM CDT us Caridad Akhtar MD LAB BLOOD ORDERABLES Final Re sult [facility] Department [place] [address] * (ABNORMAL) Basic metabolic panel (12/05/2022 8:48 AM CDT) Pathologist [facility] Sodium 141 135 - 145 mmol/L [facility] Potassium, pl 3.7 3.3 - 4.9 mmol/L [facility] Chloride 98 97 - 110 mmol/L [facility] CO2 39(H) 22 - 32 mmol/L [facility] Anion gap 4 2 - 15 mmol/L [facility] BUN 21 8 - 25 mg/dL [facility] Creatinine 1.01 0.60 - 1.10 mg/dL [facility] Glucose 214(H) 70 - 199 mg/dL [facility] Comment: Interpretive Data Fasting glucose >/= 126 mg/dl is diagnostic for diabetes. ?? Fasting is defined as no caloric intake for at least 8 hours. Fasting glucose between 100 mg/dl to 125 mg/dl is diagnostic of prediabetes. In a patient with classic symptoms of hyperglycemia or hyperglycemic crisis, a random glucose >/= 200 mg/dl is diagnostic for diabetes. In the absence of unequivocal hyperglycemia, results should be confirmed by repeat testing. The classification and Diagnosis of Diabetes Diabetes Care 2021; 46: S19-S40. Current interpretive data was last revised 2022. Calcium 8.9 8.5 - 10.3 mg/dL [facility] Blood 12/05/2022 8:48 AM CDT 12/05/2022 9:16 AM CDT us Caridad Akhtar MD LAB BLOOD ORDERABLES Final Re sult Performing Organization Address City/[facility] Co de Phone Number [facility] Department [place] [address] * Magnesium (12/05/2022 8:48 AM CDT) Magnesium 1.9 1.4 - 2.5 mg/dL [facility] Blood 12/05/2022 8:48 AM CDT 12/05/2022 9:16 AM CDT us Caridad Ahktar MD LAB BLOOD ORDERABLES Final Re sult Performing Organization Address [facility] Co de Phone Number [facility] Department [place] [address] * (ABNORMAL) Phosphorus (12/05/2022 8:48 AM CDT) Phosphorus, pl 2.2(L) 2.3 - 4.5 mg/dL [facility] Blood 12/05/2022 8:48 AM CDT 12/05/2022 9:16 AM CDT us Caridad Akhtar MD LAB BLOOD ORDERABLES Final Re sult Performing Organization Address [facility] Co de Phone Number [facility] [place] [address] * POCT glucose (12/05/2022 8:00 AM CDT) [facility] Glucose, POC 182 70 - 199 mg/dL [facility] Blood 12/05/2022 8:00 AM CDT 12/05/2022 8:00 AM CDT Caridad Akhtar MD LAB POCT ORDERABLES - DEVICE Final Result Performing Organization Address City/[facility]/ZIP Co de Phone Number [facility] Department [place] [address] * ECG 12 lead (12/05/2022 4:23 AM CDT) [facility] Ventricular Rate EKG/Min 137 BPM [facility] Atrial Rate 131 BPM [facility] QRS-Interval (MSEC) 72 ms [facility] QT-Interval (MSEC) 360 ms [facility] QTc 543 ms [facility] R Pipestem 39 degrees [facility] T Pipestem -87 degrees [facility] Diagnosis Atrial fibrillation/flu tter with rapid ventricular response ST & T wave abnormality, consider inferior ischemia ST & T wave abnormality, consider anterolateral ischemia Abnormal ECG When compared with ECG of 03-DEC-2022 23:17, (unconfirmed) Atrial fibrillation has replaced Sinus rhythm Vent. rate has increased BY ??73 BPM Inverted T waves have replaced nonspecific T wave abnormality in Inferior leads T wave inversion now evident in Anterolateral leads Confirmed by ROMIE URRUTIA M.D ([id number]) on 12/05/2022 6:04:07 PM [facility] 12/05/2022 4:23 AM CDT 12/05/2022 6:04 PM CDT Caridad Akhtar MD ECG ORDERABLES Final Result Performing Organization Address City/[facility]/ZIP Co de Phone Number [facility] * Potassium, whole blood (12/05/2022 4:21 AM CDT) [facility] Potassium, bld 3.7 3.3 - 4.9 mmol/L [facility] Blood 12/05/2022 4:21 AM CDT 12/05/2022 6:38 AM CDT us Caridad Akhtar MD LAB BLOOD ORDERABLES Final Re sult Performing Organization Address City/[facility] Co de Phone Number [facility] Department [place] [address] * (ABNORMAL) eGFR (12/05/2022 4:08 AM CDT) eGFR 60(L) 90 - 130 mL/min/1. [address] [facility] Comment: Interpretive Data Reference Interval Normal ?>/= 90 mL/min/1.73m2 Mildly decreased* ? 60 - 89 mL/min/1.73m2 Mildly to moderately decreased ?45 - 59 mL/min/1.73m2 Moderately to severely decreased ??30 - 44 mL/min/1.73m2 Severely decreased ?15 - 29 mL/min/1.73m2 Kidney Failure ?< 15 ??mL/min/1.73m2 *Relative to young adult level Estimated glomerular filtration rate is determined by the 2020 CKD-EPI equation recommended by the National Kidney Foundation (A Unifying Approach to GFR Estimation: Recommendations of the NKF-ASK Task Force on Reassessing the Inclusion of Race in Diagnosing Kidney Disease, JASN 2020). The CKD-EPI equation should not be used for patients with unstable renal function and has not been validated in children and those over 70. Current interpretive data was last reviewed 2021. Blood 12/05/2022 4:08 AM CDT 12/05/2022 6:40 AM CDT Caridad Akhtar MD LAB BLOOD ORDERABLES Final Re sult Performing Organization Address City/[facility] Co de Phone Number [facility] Department [place] [address] * (ABNORMAL) Differential, auto (12/05/2022 4:08 AM CDT) Neutrophil abs 7.7(H) 1.7 - 6.5 K/cumm [facility] Imm gran abs 0.1 0.0 - 0.1 K/cumm [facility] Lymphocyte abs 3.1 0.8 - 3.3 K/cumm [facility] Monocyte abs 1.0(H) 0.2 - 0.8 K/cumm [facility] Eosinophil abs 0.2 0.0 - 0.5 K/cumm [facility] Basophil abs 0.1 0.0 - 0.1 K/cumm [facility] Neutrophil pct 63.6 % [facility] Comment: Interpretive Data Percent cell count reference ranges are not reported, since discordance with absolute values may lead to misinterpretation of CBC data. Current Interpretive Data was last revised on 2017. Imm gran pct 0.5 % [facility] Comment: Interpretive Data Percent cell count reference ranges are not reported, since discordance with absolute values may lead to misinterpretation of CBC data. Current Interpretive Data was last revised on 2017. Lymphocyte pct 25.7 % [facility] Comment: Interpretive Data Percent cell count reference ranges are not reported, since discordance with absolute values may lead to misinterpretation of CBC data. Current Interpretive Data was last revised on 2017. Monocyte pct 8.0 % [facility] Comment: Interpretive Data Percent cell count reference ranges are not reported, since discordance with absolute values may lead to misinterpretation of CBC data. Current Interpretive Data was last revised on 2017. Eosinophil pct 1.5 % [facility] Comment: Interpretive Data Percent cell count reference ranges are not reported, since discordance with absolute values may lead to misinterpretation of CBC data. Current Interpretive Data was last revised on 2017. Basophil pct 0.7 % [facility] Comment: Interpretive Data Percent cell count reference ranges are not reported, since discordance with absolute values may lead to misinterpretation of CBC data. Current Interpretive Data was last revised on 2017. Blood 12/05/2022 4:08 AM CDT 12/05/2022 6:40 AM CDT Caridad Akhtar MD LAB BLOOD ORDERABLES Final Re sult Performing Organization Address City/[facility]/ZIP Co de Phone Number [facility] Department [place] [address] * (ABNORMAL) Basic metabolic panel (12/05/2022 4:08 AM CDT) [facility] Sodium 143 135 - 145 mmol/L [facility] Potassium, pl 3.8 3.3 - 4.9 mmol/L [facility] Chloride 100 97 - 110 mmol/L [facility] CO2 39(H) 22 - 32 mmol/L [facility] Anion gap 4 2 - 15 mmol/L [facility] BUN 24 8 - 25 mg/dL [facility] Creatinine 1.01 0.60 - 1.10 mg/dL [facility] Glucose 134 70 - 199 mg/dL [facility] Comment: Interpretive Data Fasting glucose >/= 126 mg/dl is diagnostic for diabetes. ?? Fasting is defined as no caloric intake for at least 8 hours. Fasting glucose between 100 mg/dl to 125 mg/dl is diagnostic of prediabetes. In a patient with classic symptoms of hyperglycemia or hyperglycemic crisis, a random glucose >/= 200 mg/dl is diagnostic for diabetes. In the absence of unequivocal hyperglycemia, results should be confirmed by repeat testing. The classification and Diagnosis of Diabetes Diabetes Care 2021; 46: S19-S40. Current interpretive data was last revised 2022. Calcium 8.8 8.5 - 10.3 mg/dL [facility] Blood 12/05/2022 4:08 AM CDT 12/05/2022 6:40 AM CDT Caridad Akhtar MD LAB BLOOD ORDERABLES Final Re sult Performing Organization Address City/[facility]/ZIP Co de Phone Number [facility] Department [place] [address] * Magnesium (12/05/2022 4:08 AM CDT) [facility] Magnesium 2.0 1.4 - 2.5 mg/dL [facility] Blood 12/05/2022 4:08 AM CDT 12/05/2022 6:40 AM CDT Caridad Akhtar MD LAB BLOOD ORDERABLES Final Re sult Performing Organization Address City/[facility]/[place] [address] * Phosphorus (12/05/2022 4:08 AM CDT) [facility] Phosphorus, pl 2.4 2.3 - 4.5 mg/dL [facility] Blood 12/05/2022 4:08 AM CDT 12/05/2022 6:40 AM CDT Caridad Akhtar MD LAB BLOOD ORDERABLES Final Re sult Performing Organization Address [facility] [place] [address] * (ABNORMAL) CBC with auto differential (12/05/2022 4:08 AM CDT) [facility] WBC 12.0(H) 3.8 - 9.9 K/cumm [facility] Hgb 10.4(L) 11.9 - 15.5 g/dL [facility] Hct 31.1(L) 35.6 - 45.5 % [facility] Plt 358 150 - 400 K/cumm [facility] MPV 12.4(H) 9.1 - 12.[address] [facility] RBC 3.38(L) 3.90 - 5.20 M/cumm [facility] MCV 92.0 81.3 - 96.[address] [facility] MCH 30.8 27.1 - 33.[address] [facility] MCHC 33.4 32.3 - 35.7 g/dL [facility] RDW CV 14.2 11.1 - 14.9 % [facility] RDW SD 47.5 35.7 - 48.[address] [facility] NRBC abs 0.00 0.00 - 0.01 K/cumm [facility] Blood 12/05/2022 4:08 AM CDT 12/05/2022 6:40 AM CDT us Caridad Akhtar MD LAB BLOOD ORDERABLES Final Re sult [facility] Department [place] [address] * (ABNORMAL) eGFR (12/04/2022 10:08 PM CDT) eGFR 51(L) 90 - 130 mL/min/1. [address] [facility] Comment: Interpretive Data Reference Interval Normal ?>/= 90 mL/min/1.73m2 Mildly decreased* ? 60 - 89 mL/min/1.73m2 Mildly to moderately decreased ?45 - 59 mL/min/1.73m2 Moderately to severely decreased ??30 - 44 mL/min/1.73m2 Severely decreased ?15 - 29 mL/min/1.73m2 Kidney Failure ?< 15 ??mL/min/1.73m2 *Relative to young adult level Estimated glomerular filtration rate is determined by the 2020 CKD-EPI equation recommended by the National Kidney Foundation (A Unifying Approach to GFR Estimation: Recommendations of the NKF-ASK Task Force on Reassessing the Inclusion of Race in Diagnosing Kidney Disease, JASN 2020). The CKD-EPI equation should not be used for patients with unstable renal function and has not been validated in children and those over 70. Current interpretive data was last reviewed 2021. Blood 12/04/2022 10:0 8 PM CDT 12/04/2022 10:29 PM CDT Caridad Akhtar MD LAB BLOOD ORDERABLES Final Re sult Performing Organization Address City/[facility]/ZIP Co de Phone Number [facility] [place] [address] * Magnesium (12/04/2022 10:08 PM CDT) Pathologist [facility] Magnesium 2.0 1.4 - 2.5 mg/dL [facility] Blood 12/04/2022 10:0 8 PM CDT 12/04/2022 10:23 PM CDT Caridad Akhtar MD LAB BLOOD ORDERABLES Final Re sult Performing Organization Address [facility] Co de Phone Number [facility] [place] [address] * (ABNORMAL) Basic metabolic panel (12/04/2022 10:08 PM CDT) Pathologist [facility] Sodium 141 135 - 145 mmol/L [facility] Potassium, pl 3.4 3.3 - 4.9 mmol/L [facility] Chloride 95(L) 97 - 110 mmol/L [facility] CO2 40(H) 22 - 32 mmol/L [facility] Anion gap 6 2 - 15 mmol/L [facility] BUN 31(H) 8 - 25 mg/dL [facility] Creatinine 1.16(H) 0.60 - 1.10 mg/dL [facility] Glucose 252(H) 70 - 199 mg/dL [facility] Comment: Interpretive Data Fasting glucose >/= 126 mg/dl is diagnostic for diabetes. ?? Fasting is defined as no caloric intake for at least 8 hours. Fasting glucose between 100 mg/dl to 125 mg/dl is diagnostic of prediabetes. In a patient with classic symptoms of hyperglycemia or hyperglycemic crisis, a random glucose >/= 200 mg/dl is diagnostic for diabetes. In the absence of unequivocal hyperglycemia, results should be confirmed by repeat testing. The classification and Diagnosis of Diabetes Diabetes Care 2021; 46: S19-S40. Current interpretive data was last revised 2022. Calcium 8.7 8.5 - 10.3 mg/dL [facility] Blood 12/04/2022 10:0 8 PM CDT 12/04/2022 10:23 PM CDT us Caridad Akhtar MD LAB BLOOD ORDERABLES Final Re sult Performing Organization Address [facility] Co de Phone Number [facility] Department [place] [address] * Phosphorus (12/04/2022 10:08 PM CDT) Phosphorus, pl 2.3 2.3 - 4.5 mg/dL [facility] Blood 12/04/2022 10:0 8 PM CDT 12/04/2022 10:23 PM CDT Caridad Akhtar MD LAB BLOOD ORDERABLES Final Re sult Performing Organization Address [facility] Co de Phone Number [facility] Department [place] [address] * Potassium, whole blood (12/04/2022 10:08 PM CDT) Potassium, bld 3.4 3.3 - 4.9 mmol/L [facility] Blood 12/04/2022 10:0 8 PM CDT 12/04/2022 10:19 PM CDT us Caridad Akhtar MD LAB BLOOD ORDERABLES Final Re sult Performing Organization Address City/[facility] Co de Phone Number [facility] Department [place] [address] * (ABNORMAL) POCT glucose (12/04/2022 8:59 PM CDT) Pathologist [facility] Glucose, POC 261(H) 70 - 199 mg/dL [facility] Blood 12/04/2022 8:59 PM CDT 12/04/2022 8:59 PM CDT Caridad Akhtar MD LAB POCT ORDERABLES - DEVICE Final Result Performing Organization Address [facility]/ZIP Co de Phone Number [facility] [address] [place] [address] * POCT glucose (12/04/2022 5:27 PM CDT) [facility] Glucose, POC 152 70 - 199 mg/dL [facility] Blood 12/04/2022 5:27 PM CDT 12/04/2022 5:27 PM CDT Caridad Akhtar MD LAB POCT ORDERABLES - DEVICE Final Result Performing Organization Address [facility] [place] [address] * (ABNORMAL) eGFR (12/04/2022 4:49 PM CDT) [facility] eGFR 51(L) 90 - 130 mL/min/1. [address] [facility] Comment: Interpretive Data Reference Interval Normal ?>/= 90 mL/min/1.73m2 Mildly decreased* ? 60 - 89 mL/min/1.73m2 Mildly to moderately decreased ?45 - 59 mL/min/1.73m2 Moderately to severely decreased ??30 - 44 mL/min/1.73m2 Severely decreased ?15 - 29 mL/min/1.73m2 Kidney Failure ?< 15 ??mL/min/1.73m2 *Relative to young adult level Estimated glomerular filtration rate is determined by the 2020 CKD-EPI equation recommended by the National Kidney Foundation (A Unifying Approach to GFR Estimation: Recommendations of the NKF-ASK Task Force on Reassessing the Inclusion of Race in Diagnosing Kidney Disease, JASN 2020). The CKD-EPI equation should not be used for patients with unstable renal function and has not been validated in children and those over 70. Current interpretive data was last reviewed 2021. Blood 12/04/2022 4:49 PM CDT 12/04/2022 5:14 PM CDT Caridad Akhtar MD LAB BLOOD ORDERABLES Final Re sult Performing Organization Address [facility] Co de Phone Number [facility] Department of [address] [place] [address] * Phosphorus (12/04/2022 4:49 PM CDT) Phosphorus, pl 2.6 2.3 - 4.5 mg/dL [facility] Blood 12/04/2022 4:49 PM CDT 12/04/2022 4:57 PM CDT Caridad Akhtar MD LAB BLOOD ORDERABLES Final Re sult Performing Organization Address City/[facility] Co de Phone Number [facility] Department of [address] [place] [address] * Magnesium (12/04/2022 4:49 PM CDT) Magnesium 2.4 1.4 - 2.5 mg/dL [facility] Blood 12/04/2022 4:49 PM CDT 12/04/2022 4:57 PM CDT Caridad Akhtar MD LAB BLOOD ORDERABLES Final Re sult Performing Organization Address City/[facility] Co de Phone Number [facility] [place] [address] * (ABNORMAL) Potassium, whole blood (12/04/2022 4:49 PM CDT) Potassium, bld 3.2(L) 3.3 - 4.9 mmol/L [facility] Blood 12/04/2022 4:49 PM CDT 12/04/2022 4:57 PM CDT Caridad Akhtar MD LAB BLOOD ORDERABLES Final Re sult Performing Organization Address [facility] de Phone Number [facility] [place] [address] * (ABNORMAL) Basic metabolic panel (12/04/2022 4:49 PM CDT) Sodium 142 135 - 145 mmol/L [facility] Potassium, pl 3.2(L) 3.3 - 4.9 mmol/L [facility] Chloride 94(L) 97 - 110 mmol/L [facility] CO2 38(H) 22 - 32 mmol/L [facility] Anion gap 10 2 - 15 mmol/L [facility] BUN 33(H) 8 - 25 mg/dL [facility] Creatinine 1.17(H) 0.60 - 1.10 mg/dL [facility] Glucose 181 70 - 199 mg/dL [facility] Comment: Interpretive Data Fasting glucose >/= 126 mg/dl is diagnostic for diabetes. ?? Fasting is defined as no caloric intake for at least 8 hours. Fasting glucose between 100 mg/dl to 125 mg/dl is diagnostic of prediabetes. In a patient with classic symptoms of hyperglycemia or hyperglycemic crisis, a random glucose >/= 200 mg/dl is diagnostic for diabetes. In the absence of unequivocal hyperglycemia, results should be confirmed by repeat testing. The classification and Diagnosis of Diabetes Diabetes Care 202; 46: S19-S40. Current interpretive data was last revised 2022. Calcium 9.3 8.5 - 10.3 mg/dL [facility] Blood 12/04/2022 4:49 PM CDT 12/04/2022 4:57 PM CDT us Caridad Akhtar MD LAB BLOOD ORDERABLES Final Re sult [facility] Department [place] [address] * TRANSTHORACIC ECHO (TTE) COMPLETE W DOPPLER/CF W CONTRAST (12/04/2022 3:32 PM CDT) LV EF 76 % CARDIOREPORT Anatomical Region Laterality Modality Ultrasound 12/04/2022 12:4 5 PM CDT Narrative 12/04/2022 4:52 PM CDT Patient name: Stella Carroll Date of test: 12/04/2022 Type of test: TTE w/Doppler Hospital #: [id number] Date of : 1955 (F) Dry House Worker: Velma Griffin RDCS Referring Physician: CARIDAD AKHTAR MD Contrast Agent: 0.8 ml Optison Administered, (2.2 ml wasted). Contrast Administered by: UNLEAVENED DOUGH MIXER Supervised/Interpreted by: Mehran Tabor MD Diagnosis: Location: [facility] Reason for test: OSH Reported Severe MR MV Structure: Normal, ?MV Motion: Normal, ?? Mitral Annulus: Normal AV Structure: tricuspid and is Normal, ?? AV Motion: Normal Aotic root: Normal, ?TM: Normal, ?? PV: Normal Valvular Vegetations: none seen, ?Mass/Thrombi: none seen RA: Normal Measurements: ?M-Mode ?Normal ? Aotic Root: ? <3.8 ? LA: ? <3.8 ? RV: ? <2.8 ? LV(ED): ? <5.7 ? LV(ES): ? Variable ?2D Linear Normal ? Aotic Root: 2.9 cm ?<3.6 ? Ao Indexed: 1.7 cm/M2 <2.0 ? LA: ? <3.8 ? RV: ? 36.8 cm ?? <4.2 ? LV(ED): ? 3.9 cm ?<5.3 ? LV(ES): ? 2.2 cm ?<3.5 ?2D Vol. ?? Normal ?Indexed ?? Indexed Normal RA: ? 27.4 ml ? 16.4 ml/M2 ?9-33 ? LA: ? 57.2 ml ? 34.2 ml/M2 ?16-34 ? RV: ? <11.6 ? LV(ED): ? 76.1 ml ?? 46-106 ?45.5 ml/M2 ?<62 ? LV(ES): ? 18.0 ml ?? 14-42 ? 10.8 ml/M2 ?<25 ?3D Vol. ? Indexed Normal LV(ED): ?<62 ? LV(ES): ?<24 ? LV EF: 76 % ?? (Normal: >=54%) ?? LV Septum: 1.0 cm ?(Normal: <0.9 cm) Wall Motion Scoring (1=Normal 2=Hypo 3=Akinetic 4=Dyskin./Aneurysm 0=Not visualized) Parasternal Long Pipestem:MAS=1 BAS=1 MIL=1 OSVALDO=1 Parasternal Short Pipestem:MAS=1 MIS=1 OR=1 MIL=1 MAL=1 MA=1 Apical 4 Chambers:=1 MIS=1 BIS=1 BAL=1 MAL=1 AL=1 AC=1 Apical 2 Chambers:AI=1 OR=1 BI=1 BA=1 MA=1 AA=1 AC=1 LV Global Longitudinal Strain: RV Global Longitudinal Strain: LV Function: Hyperdynamic LV Ejection Fraction (EF>74%) RV Function: Normal Septal Motion: Normal Pericardial Effusion: none seen Atrial Septum: Normal DOPPLER/COLOR FLOW DOPPLER RESULTS: Diastolic Function: Normal Tricuspid Valve: mild TV regurgitation Pulmonic Valve: normal PV AV Regurgitation: No AR seen AV Stenosis: no AV Area: ??cm2 AV Pressure Gradient (mmHg): Mean: 0, Peak:0 MV Regurgitation: Trace MR MV Stenosis: ??no MS MV Area: ??cm2 MV Pressure Gradient (mmHg): Mean: 0 MV ERO: ??cm Regurg. Vol.: ??ml/beat Regurg. Frac.: ??% PA Pressure: 30+RA mmHg DOPPLER/COLOR FOLOW DOPPLER COMMENTS: No AR seen, Trace MR, no , ??no MS, mild TV regurgitation, normal PV. Diastolic function: Normal CONTRAST: 0.8 ml Optison Administered, (2.2 ml wasted). SUMMARY: Normal LV and RV size and systolic function. LVEF 76%. Normal LV wall thickness/mass. No WMA. ??No significant valvular abnormalities noted. Trace-mild MR. ??LA is normal. Normal RV cavity size. Strain quality is inadequate for accurate reporting. Normal diastolic function. ??Estimated PA systolic pressure 30+RA(3) mmHg. ??Normal Inferior vena cava. Normal aorta. No prior study. Confirmed on ??12/04/2022 - 16:52:14 by Mehran Tabor MD By signing this report, the attending tank builder helper certifies that he or she has personally supervised and interpreted the echocardiogram and has reviewed and or edited and agrees with the written comments contained within the report. Procedure Note Mehran Jimenes MD - 12/04/2022 Patient name: Stella Carroll Date of test: 12/04/2022 Type of test: TTE w/Doppler [facility] #: 0 Date of : 1955 (F) Dry House Worker: Velma Griffin RDCS Referring Physician: CARIDAD AKHTAR MD Contrast Agent: 0.8 ml Optison Administered, (2.2 ml wasted). Contrast Administered by: UNLEAVENED DOUGH MIXER Supervised/Interpreted by: Mehran Tabor MD Diagnosis: Location: [facility] Reason for test: OSH Reported Severe MR MV Structure: Normal, MV Motion: Normal, Mitral Annulus: Normal AV Structure: tricuspid and is Normal, AV Motion: Normal Aotic root: Normal, TM: Normal, PV: Normal Valvular Vegetations: none seen, Mass/Thrombi: none seen RA: Normal Measurements: M-Mode Normal Aotic Root: <3.8 LA: <3.8 RV: <2.8 LV(ED): <5.7 LV(ES): Variable 2D Linear Normal Aotic Root: 2.9 cm <3.6 Ao Indexed: 1.7 cm/M2 <2.0 LA: <3.8 RV: 36.8 cm <4.2 LV(ED): 3.9 cm <5.3 LV(ES): 2.2 cm <3.5 2D Vol. Normal Indexed Indexed Normal RA: 27.4 ml 16.4 ml/M2 9-33 LA: 57.2 ml 34.2 ml/M2 16-34 RV: <11.6 LV(ED): 76.1 ml 46-106 45.5 ml/M2 <62 LV(ES): 18.0 ml 14-42 10.8 ml/M2 <25 3D Vol. Indexed Normal LV(ED): <62 LV(ES): <24 LV EF: 76 % (Normal: >=54%) LV Septum: 1.0 cm (Normal: <0.9 cm) Wall Motion Scoring (1=Normal 2=Hypo 3=Akinetic 4=Dyskin./Aneurysm 0=Not visualized) Parasternal Long Pipestem:MAS=1 BAS=1 MIL=1 OSVALDO=1 Parasternal Short Pipestem:MAS=1 MIS=1 OR=1 MIL=1 MAL=1 MA=1 Apical 4 Chambers:=1 MIS=1 BIS=1 BAL=1 MAL=1 AL=1 AC=1 Apical 2 Chambers:AI=1 OR=1 BI=1 BA=1 MA=1 AA=1 AC=1 LV Global Longitudinal Strain: RV Global Longitudinal Strain: LV Function: Hyperdynamic LV Ejection Fraction (EF>74%) RV Function: Normal Septal Motion: Normal Pericardial Effusion: none seen Atrial Septum: Normal DOPPLER/COLOR FLOW DOPPLER RESULTS: Diastolic Function: Normal Tricuspid Valve: mild TV regurgitation Pulmonic Valve: normal PV AV Regurgitation: No AR seen AV Stenosis: no AV Area: cm2 AV Pressure Gradient (mmHg): Mean: 0, Peak:0 MV Regurgitation: Trace MR MV Stenosis: no MS MV Area: cm2 MV Pressure Gradient (mmHg): Mean: 0 MV ERO: cm Regurg. Vol.: ml/beat Regurg. Frac.: % PA Pressure: 30+RA mmHg DOPPLER/COLOR FOLOW DOPPLER COMMENTS: No AR seen, Trace MR, no , no MS, mild TV regurgitation, normal PV. Diastolic function: Normal CONTRAST: 0.8 ml Optison Administered, (2.2 ml wasted). SUMMARY: Normal LV and RV size and systolic function. LVEF 76%. Normal LV wall thickness/mass. No WMA. No significant valvular abnormalities noted. Trace-mild MR. LA is normal. Normal RV cavity size. Strain quality is inadequate for accurate reporting. Normal diastolic function. Estimated PA systolic pressure 30+RA(3) mmHg. Normal Inferior vena cava. Normal aorta. No prior study. Confirmed on 12/04/2022 - 16:52:14 by Mehran Tabor MD By signing this report, the attending tank builder helper certifies that he or she has personally supervised and interpreted the echocardiogram and has reviewed and or edited and agrees with the written comments contained within the report. Caridad Akhtar MD CV ECHO PROCEDURES Final Resu lt * (ABNORMAL) eGFR (12/04/2022 12:00 PM CDT) [facility] eGFR 51(L) 90 - 130 mL/min/1. [address] [facility] Comment: Interpretive Data Reference Interval Normal ?>/= 90 mL/min/1.73m2 Mildly decreased* ? 60 - 89 mL/min/1.73m2 Mildly to moderately decreased ?45 - 59 mL/min/1.73m2 Moderately to severely decreased ??30 - 44 mL/min/1.73m2 Severely decreased ?15 - 29 mL/min/1.73m2 Kidney Failure ?< 15 ??mL/min/1.73m2 *Relative to young adult level Estimated glomerular filtration rate is determined by the 2020 CKD-EPI equation recommended by the National Kidney Foundation (A Unifying Approach to GFR Estimation: Recommendations of the NKF-ASK Task Force on Reassessing the Inclusion of Race in Diagnosing Kidney Disease, JASN 202). The CKD-EPI equation should not be used for patients with unstable renal function and has not been validated in children and those over 70. Current interpretive data was last reviewed 2021. Blood 12/04/2022 12:0 0 PM CDT 12/04/2022 11:34 AM CDT Caridad Akhtar MD LAB BLOOD ORDERABLES Final Re sult [facility] Department [place] [address] * (ABNORMAL) Phosphorus (12/04/2022 12:00 PM CDT) [facility] Phosphorus, pl 0.8(L) 2.3 - 4.5 mg/dL [facility] Blood 12/04/2022 12:0 0 PM CDT 12/04/2022 11:34 AM CDT Caridad Akhtar MD LAB BLOOD ORDERABLES Final Re sult Performing Organization Address [facility]/ZIP Co de Phone Number [facility] Department [place] [address] * (ABNORMAL) Magnesium (12/04/2022 12:00 PM CDT) [facility] Magnesium 2.7(H) 1.4 - 2.5 mg/dL [facility] Blood 12/04/2022 12:0 0 PM CDT 12/04/2022 11:34 AM CDT Caridad Akhtar MD LAB BLOOD ORDERABLES Final Re sult Performing Organization Address [facility] de Phone Number [facility] [place] [address] * (ABNORMAL) Basic metabolic panel (12/04/2022 12:00 PM CDT) [facility] Sodium 139 135 - 145 mmol/L [facility] Potassium, pl 2.8(L) 3.3 - 4.9 mmol/L [facility] Chloride 91(L) 97 - 110 mmol/L [facility] CO2 43(H) 22 - 32 mmol/L [facility] Comment:Reviewed Anion gap 5 2 - 15 mmol/L [facility] BUN 37(H) 8 - 25 mg/dL [facility] Creatinine 1.16(H) 0.60 - 1.10 mg/dL [facility] Glucose 319(H) 70 - 199 mg/dL [facility] Comment: Interpretive Data Fasting glucose >/= 126 mg/dl is diagnostic for diabetes. ?? Fasting is defined as no caloric intake for at least 8 hours. Fasting glucose between 100 mg/dl to 125 mg/dl is diagnostic of prediabetes. In a patient with classic symptoms of hyperglycemia or hyperglycemic crisis, a random glucose >/= 200 mg/dl is diagnostic for diabetes. In the absence of unequivocal hyperglycemia, results should be confirmed by repeat testing. The classification and Diagnosis of Diabetes Diabetes Care 2021; 46: S19-S40. Current interpretive data was last revised 2022. Calcium 8.9 8.5 - 10.3 mg/dL [facility] Blood 12/04/2022 12:0 0 PM CDT 12/04/2022 11:34 AM CDT Caridad Akhtar MD LAB BLOOD ORDERABLES Final Re sult Performing Organization Address [facility] Co de Phone Number [facility] Department [place] [address] * (ABNORMAL) Potassium, whole blood (12/04/2022 11:11 AM CDT) Potassium, bld 2.7(L) 3.3 - 4.9 mmol/L [facility] Blood 12/04/2022 11:1 1 AM CDT 12/04/2022 11:25 AM CDT Caridad Akhtar MD LAB BLOOD ORDERABLES Final Re sult Performing Organization Address [facility] Co de Phone Number [facility] Department [place] [address] * (ABNORMAL) Hemoglobin A1c (12/04/2022 6:04 AM CDT) Hgb A1C 7.3(H) 4.0 - 5.6 % [facility] Estimated Average Glucose 163 mg/dL [facility] Comment: The ADA recommends reporting an estimated Average Glucose (eAG) with all Hemoglobin A1c results using the equation derived from a study of 507 normal and diabetic adults. ??Minority populations were underrepresented and children were not included. ?? (Diabetes Care 2020; 43(S1): S66-S76). ??The eAG is not equivalent to a fasting glucose. Blood 12/04/2022 6:04 AM CDT 12/04/2022 6:26 AM CDT Caridad Akhtar MD LAB BLOOD ORDERABLES Final Re sult Performing Organization Address [facility] Co de Phone Number [facility] [address] [place] [address] * Critical Result Callback Chemistry (12/04/2022 6:04 AM CDT) Date Notified 20221204 [facility] Time Notified [address] [facility] TestName CO2 total [facility] Called/Read Back Michael ROB[facility]S [facility] Credentials RN [facility] Called By tmp [facility] Blood 12/04/2022 6:04 AM CDT 12/04/2022 6:22 AM CDT Caridad Akhtar MD LAB BLOOD ORDERABLES Final Re sult Performing Organization Address [facility] [place] [address] * (ABNORMAL) eGFR (12/04/2022 6:04 AM CDT) eGFR 48(L) 90 - 130 mL/min/1. [address] [facility] Comment: Interpretive Data Reference Interval Normal ?>/= 90 mL/min/1.73m2 Mildly decreased* ? 60 - 89 mL/min/1.73m2 Mildly to moderately decreased ?45 - 59 mL/min/1.73m2 Moderately to severely decreased ??30 - 44 mL/min/1.73m2 Severely decreased ?15 - 29 mL/min/1.73m2 Kidney Failure ?< 15 ??mL/min/1.73m2 *Relative to young adult level Estimated glomerular filtration rate is determined by the 2020 CKD-EPI equation recommended by the National Kidney Foundation (A Unifying Approach to GFR Estimation: Recommendations of the NKF-ASK Task Force on Reassessing the Inclusion of Race in Diagnosing Kidney Disease, JASN 2020). The CKD-EPI equation should not be used for patients with unstable renal function and has not been validated in children and those over 70. Current interpretive data was last reviewed 2021. Blood 12/04/2022 6:04 AM CDT 12/04/2022 6:22 AM CDT Caridad Akhtar MD LAB BLOOD ORDERABLES Final Re sult Performing Organization Address City/[facility]/ZIP Co de Phone Number [facility] Department [place] [address] * Critical Result Callback Chemistry (12/04/2022 6:04 AM CDT) Date Notified 20221204 [facility] Time Notified [address] [facility] TestName HCO3 [place] (Calc) [facility] Called/Read Back Yara ROB[facility]S [facility] Credentials [facility] Called By [facility] Blood 12/04/2022 6:04 AM CDT 12/04/2022 6:18 AM CDT Caridad Akhtar MD LAB BLOOD ORDERABLES Final Re sult [facility] Department [place] [address] * (ABNORMAL) Differential, auto (12/04/2022 6:04 AM CDT) Neutrophil abs 9.7(H) 1.7 - 6.5 K/cumm [facility] Imm gran abs 0.1 0.0 - 0.1 K/cumm [facility] Lymphocyte abs 2.2 0.8 - 3.3 K/cumm [facility] Monocyte abs 1.1(H) 0.2 - 0.8 K/cumm [facility] Eosinophil abs 0.1 0.0 - 0.5 K/cumm [facility] Basophil abs 0.1 0.0 - 0.1 K/cumm [facility] Neutrophil pct 73.8 % [facility] Comment: Interpretive Data Percent cell count reference ranges are not reported, since discordance with absolute values may lead to misinterpretation of CBC data. Current Interpretive Data was last revised on 2017. Imm gran pct 0.5 % [facility] Comment: Interpretive Data Percent cell count reference ranges are not reported, since discordance with absolute values may lead to misinterpretation of CBC data. Current Interpretive Data was last revised on 2017. Lymphocyte pct 16.4 % [facility] Comment: Interpretive Data Percent cell count reference ranges are not reported, since discordance with absolute values may lead to misinterpretation of CBC data. Current Interpretive Data was last revised on 2017. Monocyte pct 8.3 % [facility] Comment: Interpretive Data Percent cell count reference ranges are not reported, since discordance with absolute values may lead to misinterpretation of CBC data. Current Interpretive Data was last revised on 2017. Eosinophil pct 0.5 % [facility] Comment: Interpretive Data Percent cell count reference ranges are not reported, since discordance with absolute values may lead to misinterpretation of CBC data. Current Interpretive Data was last revised on 2017. Basophil pct 0.5 % [facility] Comment: Interpretive Data Percent cell count reference ranges are not reported, since discordance with absolute values may lead to misinterpretation of CBC data. Current Interpretive Data was last revised on 2017. Blood 12/04/2022 6:04 AM CDT 12/04/2022 6:22 AM CDT us Caridad Akhtar MD LAB BLOOD ORDERABLES Final Re sult Performing Organization Address [facility] de Phone Number [facility] Department [place] [address] * (ABNORMAL) CBC with auto differential (12/04/2022 6:04 AM CDT) WBC 13.2(H) 3.8 - 9.9 K/cumm [facility] Hgb 11.5(L) 11.9 - 15.5 g/dL [facility] Hct 33.5(L) 35.6 - 45.5 % [facility] Plt 411(H) 150 - 400 K/cumm [facility] MPV 12.0 9.1 - 12.[address] [facility] RBC 3.74(L) 3.90 - 5.20 M/cumm [facility] MCV 89.6 81.3 - 96.[address] [facility] MCH 30.7 27.1 - 33.[address] [facility] MCHC 34.3 32.3 - 35.7 g/dL [facility] RDW CV 13.6 11.1 - 14.9 % [facility] RDW SD 44.4 35.7 - 48.[address] [facility] NRBC abs 0.00 0.00 - 0.01 K/cumm [facility] Blood 12/04/2022 6:04 AM CDT 12/04/2022 6:22 AM CDT Caridad Akhtar MD LAB BLOOD ORDERABLES Final Re sult Performing Organization Address [facility]/ZIP Co de Phone Number [facility] [facility] Department [place] [address] * (ABNORMAL) Magnesium (12/04/2022 6:04 AM CDT) Magnesium 3.1(H) 1.4 - 2.5 mg/dL [facility] Blood 12/04/2022 6:04 AM CDT 12/04/2022 6:22 AM CDT Caridad Akhtar MD LAB BLOOD ORDERABLES Final Re sult Performing Organization Address City/[facility] Co de Phone Number [facility] [place] [address] * (ABNORMAL) Potassium, whole blood (12/04/2022 6:04 AM CDT) Potassium, bld 2.6(L) 3.3 - 4.9 mmol/L [facility] Blood 12/04/2022 6:04 AM CDT 12/04/2022 6:18 AM CDT Caridad Akhtar MD LAB BLOOD ORDERABLES Final Re sult Performing Organization Address [facility] de Phone Number [facility] [place] [address] * (ABNORMAL) Basic metabolic panel (12/04/2022 6:04 AM CDT) Sodium 144 135 - 145 mmol/L [facility] Potassium, pl 2.6(L) 3.3 - 4.9 mmol/L [facility] Chloride 90(L) 97 - 110 mmol/L [facility] CO2 >45(C) 22 - 32 mmol/L [facility] Anion gap <9 2 - 15 mmol/L [facility] BUN 43(H) 8 - 25 mg/dL [facility] Creatinine 1.23(H) 0.60 - 1.10 mg/dL [facility] Glucose 157 70 - 199 mg/dL [facility] Comment: Interpretive Data Fasting glucose >/= 126 mg/dl is diagnostic for diabetes. ?? Fasting is defined as no caloric intake for at least 8 hours. Fasting glucose between 100 mg/dl to 125 mg/dl is diagnostic of prediabetes. In a patient with classic symptoms of hyperglycemia or hyperglycemic crisis, a random glucose >/= 200 mg/dl is diagnostic for diabetes. In the absence of unequivocal hyperglycemia, results should be confirmed by repeat testing. The classification and Diagnosis of Diabetes Diabetes Care 2021; 46: S19-S40. Current interpretive data was last revised 2022. Calcium 9.1 8.5 - 10.3 mg/dL [facility] Blood 12/04/2022 6:04 AM CDT 12/04/2022 6:22 AM CDT Caridad Akhtar MD LAB BLOOD ORDERABLES Final Re sult Performing Organization Address [facility] de Phone Number [facility] [place] [address] * (ABNORMAL) Blood gas, venous (12/04/2022 6:04 AM CDT) pH, Venous 7.48(H) 7.32 - 7.[address] [facility] PCO2, Venous 62(H) 40 - [address] [facility] PO2, Venous [address] [facility] Comment: Interpretive Data No Reference Range Established Current Interpretive Data was last revised on 2017. HCO3 Venous, Calculated 47(C) 20 - 30 mmol/L [facility] Comment:reviewed BE, venous 18 mmol/L [facility] Comment: Interpretive Data No Reference Range Established Current Interpretive Data was last revised on 2017. Blood 12/04/2022 6:04 AM CDT 12/04/2022 6:18 AM CDT Caridad Akhtar MD LAB BLOOD ORDERABLES Final Re sult Performing Organization Address [facility] de Phone Number [facility] of [address] [place] [address] * (ABNORMAL) eGFR (12/04/2022 1:16 AM CDT) eGFR 47(L) 90 - 130 mL/min/1. [address] [facility] Comment: Interpretive Data Reference Interval Normal ?>/= 90 mL/min/1.73m2 Mildly decreased* ? 60 - 89 mL/min/1.73m2 Mildly to moderately decreased ?45 - 59 mL/min/1.73m2 Moderately to severely decreased ??30 - 44 mL/min/1.73m2 Severely decreased ?15 - 29 mL/min/1.73m2 Kidney Failure ?< 15 ??mL/min/1.73m2 *Relative to young adult level Estimated glomerular filtration rate is determined by the 2020 CKD-EPI equation recommended by the National Kidney Foundation (A Unifying Approach to GFR Estimation: Recommendations of the NKF-ASK Task Force on Reassessing the Inclusion of Race in Diagnosing Kidney Disease, JASN 2020). The CKD-EPI equation should not be used for patients with unstable renal function and has not been validated in children and those over 70. Current interpretive data was last reviewed 2021. Blood 12/04/2022 1:16 AM CDT 12/04/2022 1:33 AM CDT Caridad Akhtar MD LAB BLOOD ORDERABLES Final Re sult [facility] Department [place] [address] * Critical Result Callback Chemistry (12/04/2022 1:16 AM CDT) Date Notified 20221204 [facility] Time Notified 208 [facility] TestName Potassium Plas, CO2 Totl [facility] Called/Read Back Philip REINA Credentials RN [facility] Called By aditi REINA Blood 12/04/2022 1:16 AM CDT 12/04/2022 1:33 AM CDT Caridad Akhtar MD LAB BLOOD ORDERABLES Final Re sult Performing Organization Address [facility] [place] [address] * Critical Result Callback Chemistry (12/04/2022 1:16 AM CDT) Date Notified 20221204 [facility] Time Notified [address] [facility] TestName Potassium WB [facility] Called/Read Back Tiffani Luis [facility] Credentials RN [facility] Called By cvg [facility] Blood 12/04/2022 1:16 AM CDT 12/04/2022 1:25 AM CDT Caridad Akhtar MD LAB BLOOD ORDERABLES Final Re sult Performing Organization Address [facility] Co de Phone Number [facility] of [address] [place] [address] * (ABNORMAL) Magnesium (12/04/2022 1:16 AM CDT) Magnesium 3.5(H) 1.4 - 2.5 mg/dL [facility] Blood 12/04/2022 1:16 AM CDT 12/04/2022 1:33 AM CDT Caridad Akhtar MD LAB BLOOD ORDERABLES Final Re sult Performing Organization Address [facility] Co de Phone Number [facility] [address] [place] [address] * (ABNORMAL) Potassium, whole blood (12/04/2022 1:16 AM CDT) Potassium, bld 2.4(C) 3.3 - 4.9 mmol/L [facility] Comment:reviewed Blood 12/04/2022 1:16 AM CDT 12/04/2022 1:25 AM CDT Caridad Akhtar MD LAB BLOOD ORDERABLES Final Re sult Performing Organization Address City/[facility]/ZIP Co de Phone Number [facility] Department [place] [address] * (ABNORMAL) Basic metabolic panel (12/04/2022 1:16 AM CDT) Sodium 139 135 - 145 mmol/L [facility] Potassium, pl 2.4(C) 3.3 - 4.9 mmol/L [facility] Comment:Reviewed Chloride 85(L) 97 - 110 mmol/L [facility] CO2 >45(C) 22 - 32 mmol/L [facility] Comment:Repeated and Verifie d Anion gap <9 2 - 15 mmol/L [facility] BUN 45(H) 8 - 25 mg/dL [facility] Creatinine 1.25(H) 0.60 - 1.10 mg/dL [facility] Glucose 214(H) 70 - 199 mg/dL [facility] Comment: Interpretive Data Fasting glucose >/= 126 mg/dl is diagnostic for diabetes. ?? Fasting is defined as no caloric intake for at least 8 hours. Fasting glucose between 100 mg/dl to 125 mg/dl is diagnostic of prediabetes. In a patient with classic symptoms of hyperglycemia or hyperglycemic crisis, a random glucose >/= 200 mg/dl is diagnostic for diabetes. In the absence of unequivocal hyperglycemia, results should be confirmed by repeat testing. The classification and Diagnosis of Diabetes Diabetes Care 2021; 46: S19-S40. Current interpretive data was last revised 2022. Calcium 9.3 8.5 - 10.3 mg/dL [facility] Blood 12/04/2022 1:16 AM CDT 12/04/2022 1:33 AM CDT Caridad Akhtar MD LAB BLOOD ORDERABLES Final Re sult Performing Organization Address City/[facility]/ZIP Co de Phone Number [facility] Department [place] [address] * Infection Prevention MRSA Only (Staphylococcus aureus) Culture Nasal (12/04/2022 1:16 AM CDT) Report Final Report: Negative [facility] Nasal 12/04/2022 1:16 AM CDT 12/04/2022 1:27 AM CDT Narrative [facility] - 12/05/2022 7:53 AM CDT Testing performed by [facility] ([phone]). us Caridad Akhtar MD LAB MICROBIOLOGY - GENERAL OR DERABLES Final Result [facility] Department [place] [address] * (ABNORMAL) eGFR (12/03/2022 11:43 PM CDT) eGFR 42(L) 90 - 130 mL/min/1. [address] [facility] Comment: Interpretive Data Reference Interval Normal ?>/= 90 mL/min/1.73m2 Mildly decreased* ? 60 - 89 mL/min/1.73m2 Mildly to moderately decreased ?45 - 59 mL/min/1.73m2 Moderately to severely decreased ??30 - 44 mL/min/1.73m2 Severely decreased ?15 - 29 mL/min/1.73m2 Kidney Failure ?< 15 ??mL/min/1.73m2 *Relative to young adult level Estimated glomerular filtration rate is determined by the 2020 CKD-EPI equation recommended by the National Kidney Foundation (A Unifying Approach to GFR Estimation: Recommendations of the NKF-ASK Task Force on Reassessing the Inclusion of Race in Diagnosing Kidney Disease, JASN 2020). The CKD-EPI equation should not be used for patients with unstable renal function and has not been validated in children and those over 70. Current interpretive data was last reviewed 2021. Blood 12/03/2022 11:4 3 PM CDT 12/04/2022 12:15 AM CDT Zia Camara MD LAB BLOOD ORDERABLES Final Result Performing Organization Address [facility] Co de Phone Number [facility] [place] [address] * Critical Result Callback Chemistry (12/03/2022 11:43 PM CDT) Date Notified 20221204 [facility] Time Notified [address] [facility] TestName Potassium Plas, CO2 Totl [facility] Called/Read Back Mindy Willis [facility] Credentials RN [facility] Called By cvg [facility] Blood 12/03/2022 11:4 3 PM CDT 12/04/2022 12:15 AM CDT Zia Camara MD LAB BLOOD ORDERABLES Final Result Performing Organization Address [facility] [place] [address] * (ABNORMAL) Basic metabolic panel (12/03/2022 11:43 PM CDT) Sodium 139 135 - 145 mmol/L [facility] Potassium, pl 2.4(C) 3.3 - 4.9 mmol/L [facility] Chloride 83(L) 97 - 110 mmol/L [facility] CO2 >45(C) 22 - 32 mmol/L [facility] Anion gap <11 2 - 15 mmol/L [facility] BUN 48(H) 8 - 25 mg/dL [facility] Creatinine 1.37(H) 0.60 - 1.10 mg/dL [facility] Glucose 171 70 - 199 mg/dL [facility] Comment: Interpretive Data Fasting glucose >/= 126 mg/dl is diagnostic for diabetes. ?? Fasting is defined as no caloric intake for at least 8 hours. Fasting glucose between 100 mg/dl to 125 mg/dl is diagnostic of prediabetes. In a patient with classic symptoms of hyperglycemia or hyperglycemic crisis, a random glucose >/= 200 mg/dl is diagnostic for diabetes. In the absence of unequivocal hyperglycemia, results should be confirmed by repeat testing. The classification and Diagnosis of Diabetes Diabetes Care 2021; 46: S19-S40. Current interpretive data was last revised 2022. Calcium 9.4 8.5 - 10.3 mg/dL [facility] Blood 12/03/2022 11:4 3 PM CDT 12/04/2022 12:15 AM CDT Zia Camara MD LAB BLOOD ORDERABLES Final Result Performing Organization Address City/[facility]/ZIP Co de Phone Number [facility] Department [place] [address] * (ABNORMAL) Troponin I high-sensitivity 4-hour (12/03/2022 11:43 PM CDT) Trop I hs 104(H) <=17 ng/L [facility] Comment: Previous critical value noted within 48 hours ago. Interpretive Data For further hscTnI resources including the diagnostic algorithm and an aid in interpretation, copy and paste this link: [email or web address].org/[email or web address] Current Interpretive Data last revised 2020. Trop I hs delta 16(C) ng/L [facility] Comment:Previous critical va lue noted within 48 hours ago. Trop I hs interp Significa nt(C) [facility] Comment:Previous critical va lue noted within 48 hours ago. Blood 12/03/2022 11:4 3 PM CDT 12/04/2022 12:15 AM CDT Zia Camara MD LAB BLOOD ORDERABLES Final Result Performing Organization Address City/[facility]/ZIP Co de Phone Number [facility] Department [place] [address] * ECG 12 lead (12/03/2022 11:17 PM CDT) Pathologist [facility] Ventricular Rate EKG/Min 64 BPM [facility] Atrial Rate 64 BPM [facility] GA-Interval (MSEC) 134 ms [facility] QRS-Interval (MSEC) 80 ms [facility] QT-Interval (MSEC) 610 ms [facility] QTc 629 ms [facility] P Pipestem 50 degrees [facility] R Pipestem 14 degrees [facility] T Pipestem 8 degrees [facility] Diagnosis Normal sinus rhythm Nonspecific ST abnormality Abnormal ECG When compared with ECG of 12-SEP-2006 09:55, ST elevation now present in Inferior leads QT has lengthened Confirmed by ROMIE URRUTIA M.D ([id number]) on 12/05/2022 3:51:28 PM [facility] 12/03/2022 11:1 7 PM CDT 12/05/2022 3:51 PM CDT us Caridad Akhtar MD ECG ORDERABLES Final Result [facility] * GA CRITICAL CARE ILL/INJURED PATIENT INIT 30-74 MIN (12/03/2022 11:03 PM CDT) Narrative Anny Gongora MD - 12/03/2022 11:03 PM CDT Anny Gongora MD ? 12/03/2022 11:05 PM Critical Care Performed by: Anny Gongora MD Authorized by: Anny Gongora MD ?? Critical care provider statement: As reflected in the history, physical exam, orders, notes, and/or MDM, I was personally present while the patient was critically ill and provided critical care services for 45 minutes, excluding time involved in separately billable procedures. ??Critical care was necessary to treat or prevent imminent or life-threatening deterioration of the following condition(s): ?? Suspected b judie toxicity as contributor ?? acute electrolyte derangement and severe metabolic condition ?? severe toxicological condition ??Critical care was time spent by me providing the following: ? continuous telemetry, continuous pulse oximetry, interpretation of bedside monitors, imaging, and arterial/venous lab draws, serial bedside patient exams, serial laboratory checks and resuscitation with fluids ?? frequent neurologic exams ?? decision regarding NPO status ?? active repletion of electrolytes ?? I provided emergent necessary critical care medicine services to this patient. I ordered and reviewed test results and/or imaging studies. I spent time discussing the management of this critically ill patient with consultants and the medical staff. I spent time discussing the management and therapeutic options for this critically ill patient with the patient themselves or with the appropriate designated surrogate decision-maker. I spent time documenting in the medical record. I admitted this patient to an Intensive Care unit (ICU) and discussed management with the admitting team. us Anny Gongora MD IN CLINIC/BEDSIDE ORDERAB LES Final Result * ECG 12 lead (12/03/2022 10:50 PM CDT) Narrative [facility] [place] 12/03/2022 10:50 PM CDT Anny Gongora MD ? 12/20/2022 ??5:38 PM ECG 12 lead Date/Time: 12/03/2022 10:50 PM Performed by: Chico Rodney MD Authorized by: Zia Camara MD ?? Quality: ??Tracing quality: ??Limited by artifact Comments: ?? Compared to EKG earlier today, patient appears to be in sinus rhythm, P waves are visible. ??Rate is 63. ??QT interval is 610. ??Pipestem is normal. ?? There are T-wave inversions in AVR, V1, V3, V2. ??Compared to earlier today, patient now has P waves, appears to be in sinus rhythm. ??Patient has some developing T-wave abnormality in V2 and V3. ??Nonspecific, patient continues to have long QT. us Zia Camara MD ECG ORDERABLES Edit ed Result - Final [facility] * Urine culture Urine (12/03/2022 8:54 PM CDT) Report Final Report: Less than 100,000 colonies/mL (clinically insignificant growth based on current clinical standards) [facility] Organism (CLINICALLY INSIGNIFICANT GROWTH [facility] Urine 12/03/2022 8:54 PM CDT 12/03/2022 11:44 PM CDT Narrative [facility] - 12/05/2022 7:33 AM CDT Urine culture reflexed based upon urinalysis results. Testing performed by [facility] ([phone]) Zia Camara MD LAB MICROBIOLOGY - G ENERAL ORDERABLES Final Result Performing Organization Address [facility]/ZIP Co de Phone Number [facility] Department [place] [address] * (ABNORMAL) Urinalysis, microscopic only (12/03/2022 8:54 PM CDT) WBC, ur 21-50(A) 0 - 5 /HPF [facility] RBC, ur 3-5(A) 0 - 2 /HPF [facility] Epithelial cells, squamous, ur 1-5 0 - 5 /HPF [facility] Epithelial cells, renal, ur 1-5(A) 0 - 0 /HPF [facility] Amorphous crystals, ur Trace(A) [facility] Hyaline casts, ur 11-20(A) 0 - 10 /LPF [facility] Granular casts, ur 1-5(A) 0 - 0 /LPF [facility] Waxy casts, ur 1-5(A) 0 - 0 /LPF [facility] Culture Reflex Comment Reflex to urine culture will be performed. [facility] Urine 12/03/2022 8:54 PM CDT 12/03/2022 9:00 PM CDT Zia Camara MD LAB URINE ORDERABLES Final Result Performing Organization Address [facility]/ZIP Co de Phone Number [facility] Department [place] [address] * (ABNORMAL) Urinalysis reflex to microscopic and culture Urine (12/03/2022 8:54 PM CDT) Color, ur Straw Yellow [facility] Clarity, ur Clear Clear [facility] Specific gravity, ur 1.017 1.003 - 1.[address] [facility] pH, urine 6.[address] [facility] Protein, ur ql 1+(A) Negative [facility] Glucose, ur ql Negative Negative [facility] Ketones, ur Negative Negative [facility] Bilirubin, ur Negative Negative [facility] Blood, ur Negative Negative [facility] Urobilinogen, ur <2.0 <2.0 mg/dL [facility] Nitrite, ur Negative Negative [facility] Leukocyte esterase, ur 2+(A) Negative [facility] UA reflex comment Reflex to microscopic UA will be performed. [facility] Urine 12/03/2022 8:54 PM CDT 12/03/2022 9:00 PM CDT Narrative [facility] - 12/03/2022 9:07 PM CDT ?? Urine pH is affected by diet, medications, systemic acid-base disturbances, and renal tubular function. ??pH may affect urinary stone formation. ??For example, urine pH below 6.0 may help reduce the tendency for calcium phosphate stones and pH greater than 6.0 may reduce the tendency for uric acid stone formation. Source: [facility] [address]. Last revised 08-15-2017 us Zia Camara MD LAB MICROBIOLOGY - G ENERAL ORDERABLES Final Result [facility] Department [place] [address] * Critical result callback Cardio chemistry (12/03/2022 8:53 PM CDT) Date Notified 20221203 [facility] Time Notified 2199 [facility] Test name Troponin I hs [facility] Called/Read Back [place] ROBERTS [facility] Credentials MD [facility] Called By truman RIENA Blood 12/03/2022 8:53 PM CDT 12/03/2022 9:08 PM CDT us Zia Camara MD LAB BLOOD ORDERABLES Final Result [facility] Department [place] [address] * Lipid panel (12/03/2022 8:53 PM CDT) [facility] Cholesterol 183 30 - 199 mg/dL [facility] Comment: Interpretive Data Ages < or = 19 years ??Acceptable: ? <170 mg/dL ??Borderline high: ??170-199 mg/dL ??High: ? >or= 200 mg/dL Ages > or = 20 years ??Desirable: ?<200 mg/dL ??Borderline high: ??200-239 mg/dL ??High: ? >or= 240 mg/dL Literature References: 1. Expert Panel on Integrated Guidelines for Cardiovascular Health and Risk Reduction in Children and Adolescents. Pediatrics 2011;128:S213 2. NCEP Expert Panel. Circulation 2004;110:227 Current Interpretive Data was last revised on 2018. Triglycerides 109 <=149 mg/dL [facility] Comment: Interpretive Data Ages < or = 9 years ??Acceptable: ? <75 mg/dL ??Borderline high: ??75-99 mg/dL ??High: ? >or= 100 mg/dL Ages 10 to 20 years ??Acceptable: ? <90 mg/dL ??Borderline high: ??90-129 mg/dL ??High: ? >or= 130 mg/dL Ages > or = 20 years ??Desirable: ?<150 mg/dL ??Borderline high: ??150-199 mg/dL ??High: ? 200-499 mg/dL ?Very high: ?? >or= 499 mg/dL Literature References: 1. Expert Panel on Integrated Guidelines for Cardiovascular Health and Risk Reduction in Children and Adolescents. Pediatrics 2011;128:S213 2. NCEP Expert Panel. Circulation 2004;110:227 Current Interpretive Data was last revised on 2018. HDL 45 >=40 mg/dL [facility] Comment: Interpretive Data Ages < or = 19 years ??Acceptable: ? >45 mg/dL ??Borderline low: ?? 40-45 mg/dL ??Low: ? <40 mg/dL Ages > or = 20 years ??Desirable: ?>or= 60 mg/dL ??Low: ? <40 mg/dL Literature References: 1. Expert Panel on Integrated Guidelines for Cardiovascular Health and Risk Reduction in Children and Adolescents. Pediatrics 2011;128:S213 2. NCEP Expert Panel. Circulation 2004;110:227 Current Interpretive Data was last revised on 2018. LDL, calculated 116 <=129 mg/dL [facility] Comment: Interpretive Data Ages < or = 19 years ??Acceptable: ? <110 mg/dL ??Borderline high: ??110-129 mg/dL ??High: ?>or= 130 mg/dL Ages > or = 20 years ??Optimal: ? <100 mg/dL ??Near optimal: ?100-129 mg/dL ??Borderline high: ?? 130-159 mg/dL ??High: ?>160 mg/dL Literature References: 1. Expert Panel on Integrated Guidelines for Cardiovascular Health and Risk Reduction in Children and Adolescents. Pediatrics 2011;128:S213 2. NCEP Expert Panel. Circulation 2004;110:227 Current Interpretive Data was last revised on 2018. Non-HDL Cholesterol 138 mg/dL [facility] Comment: Interpretive Data Ages < or = 19 years ??Acceptable: ?<120 mg/dL ??Borderline high: ??120-144 mg/dL ??High: ?>145 mg/dL Ages > or = 20 years ??When triglycerides are >200 mg/dL, Non-HDL cholesterol is a secondary target of ? therapy with treatment goals that are 30 mg/dL greater than the LDL cholesterol target. ? Literature References: 1. Expert Panel on Integrated Guidelines for Cardiovascular Health and Risk Reduction in Children and Adolescents. Pediatrics 2011;128:S213 2. NCEP Expert Panel. Circulation 2004;110:227 Current Interpretive Data was last revised on 2018. Chol/HDL ratio [address] [facility] Blood 12/03/2022 8:53 PM CDT 12/03/2022 9:08 PM CDT Narrative [facility] - 12/03/2022 10:17 PM CDT This lipid panel was automatically ordered due to a significant change in Troponin. The dietary status of the patient at the collection time should be correlated with the lipid results. us Zia Camara MD LAB BLOOD ORDERABLES Final Result [facility] Department [place] [address] * (ABNORMAL) eGFR (12/03/2022 8:53 PM CDT) eGFR 39(L) 90 - 130 mL/min/1. [address] [facility] Comment: Interpretive Data Reference Interval Normal ?>/= 90 mL/min/1.73m2 Mildly decreased* ? 60 - 89 mL/min/1.73m2 Mildly to moderately decreased ?45 - 59 mL/min/1.73m2 Moderately to severely decreased ??30 - 44 mL/min/1.73m2 Severely decreased ?15 - 29 mL/min/1.73m2 Kidney Failure ?< 15 ??mL/min/1.73m2 *Relative to young adult level Estimated glomerular filtration rate is determined by the 2020 CKD-EPI equation recommended by the National Kidney Foundation (A Unifying Approach to GFR Estimation: Recommendations of the NKF-ASK Task Force on Reassessing the Inclusion of Race in Diagnosing Kidney Disease, JASN 2020). The CKD-EPI equation should not be used for patients with unstable renal function and has not been validated in children and those over 70. Current interpretive data was last reviewed 2021. Blood 12/03/2022 8:53 PM CDT 12/03/2022 9:08 PM CDT Zia Camara MD LAB BLOOD ORDERABLES Final Result Performing Organization Address City/[facility]/ZIP Co de Phone Number [facility] [place] [address] * Critical Result Callback Chemistry (12/03/2022 8:53 PM CDT) Date Notified 20221203 [facility] Time Notified 2157 [facility] TestName potassium plasma, co2 total, and chloride [facility] Called/Read Back [place] REINA Credentials MD ARM[facility]O REINA Called By truman REINA Blood 12/03/2022 8:53 PM CDT 12/03/2022 9:08 PM CDT us Zia Camara MD LAB BLOOD ORDERABLES Final Result [facility] Department [place] [address] * Critical Result Callback Chemistry (12/03/2022 8:53 PM CDT) Date Notified 20221203 [facility] Time Notified 2108 [facility] TestName HCO3 Roldan (Calc) [facility] Called/Read Back Kae Quinones Credentials GLADYS REINA Called By hansel REINA Blood 12/03/2022 8:53 PM CDT 12/03/2022 9:00 PM CDT Chico Rodney MD LAB BLOOD ORDERABLES Final Result Performing Organization Address City/[facility]/ZIP Co de Phone Number [facility] [place] [address] * Critical Result Callback Chemistry (12/03/2022 8:53 PM CDT) Date Notified 20221203 [facility] Time Notified [address] [facility] TestName Potassium WB [facility] Called/Read Back Potassium WB [facility] Credentials RN [facility] Called By hansel [facility] Blood 12/03/2022 8:53 PM CDT 12/03/2022 9:00 PM CDT Zia Camara MD LAB BLOOD ORDERABLES Final Result Performing Organization Address [facility] Co de Phone Number [facility] [place] [address] * (ABNORMAL) Basic metabolic panel (12/03/2022 8:53 PM CDT) Pathologist [facility] Sodium 138 135 - 145 mmol/L [facility] Potassium, pl 1.9(C) 3.3 - 4.9 mmol/L [facility] Comment:Reviewed Chloride 75(C) 97 - 110 mmol/L [facility] Comment:Repeated and Verifie d CO2 >45(C) 22 - 32 mmol/L [facility] Comment:Repeated and Verifie d Anion gap <18(H) 2 - 15 mmol/L [facility] BUN 53(H) 8 - 25 mg/dL [facility] Creatinine 1.44(H) 0.60 - 1.10 mg/dL [facility] Glucose 188 70 - 199 mg/dL [facility] Comment: Interpretive Data Fasting glucose >/= 126 mg/dl is diagnostic for diabetes. ?? Fasting is defined as no caloric intake for at least 8 hours. Fasting glucose between 100 mg/dl to 125 mg/dl is diagnostic of prediabetes. In a patient with classic symptoms of hyperglycemia or hyperglycemic crisis, a random glucose >/= 200 mg/dl is diagnostic for diabetes. In the absence of unequivocal hyperglycemia, results should be confirmed by repeat testing. The classification and Diagnosis of Diabetes Diabetes Care 2021; 46: S19-S40. Current interpretive data was last revised 2022. Calcium 10.9(H) 8.5 - 10.3 mg/dL [facility] Blood 12/03/2022 8:53 PM CDT 12/03/2022 9:08 PM CDT Zia Camara MD LAB BLOOD ORDERABLES Final Result [facility] Department [place] [address] * (ABNORMAL) Potassium, whole blood (12/03/2022 8:53 PM CDT) Potassium, bld 2.0(C) 3.3 - 4.9 mmol/L [facility] Blood 12/03/2022 8:53 PM CDT 12/03/2022 9:00 PM CDT Zia Camara MD LAB BLOOD ORDERABLES Final Result Performing Organization Address City/[facility] Co de Phone Number [facility] Department [place] [address] * (ABNORMAL) Blood gas, venous (12/03/2022 8:53 PM CDT) pH, Venous 7.54(H) 7.32 - 7.[address] [facility] PCO2, Venous 62(H) 40 - [address] [facility] PO2, Venous [address] [facility] Comment: Interpretive Data No Reference Range Established Current Interpretive Data was last revised on 2017. HCO3 Venous, Calculated 55(C) 20 - 30 mmol/L [facility] BE, venous 25 mmol/L [facility] Comment: Interpretive Data No Reference Range Established Current Interpretive Data was last revised on 2017. Blood 12/03/2022 8:53 PM CDT 12/03/2022 9:00 PM CDT Chico Rodney MD LAB BLOOD ORDERABLES Final Result Performing Organization Address [facility] Co de Phone Number [facility] [place] [address] * (ABNORMAL) Troponin I high-sensitivity 2-hour (12/03/2022 8:53 PM CDT) Trop I hs 108(H) <=17 ng/L [facility] Comment: Interpretive Data For further hscTnI resources including the diagnostic algorithm and an aid in interpretation, copy and paste this link: https://bjhlab.testcatalog.org/show/[email or web address] Current Interpretive Data last revised 2020. Trop I hs delta 20(C) ng/L [facility] Trop I hs interp Significa nt(C) [facility] Blood 12/03/2022 8:53 PM CDT 12/03/2022 9:08 PM CDT Zia Camara MD LAB BLOOD ORDERABLES Final Result Performing Organization Address City/[facility] Co de Phone Number [facility] [place] [address] * Critical Result Callback Chemistry (12/03/2022 7:10 PM CDT) Date Notified 20221203 [facility] Time Notified [address] [facility] TestName Chloride [facility] Called/Read Back Chico Rodney [facility] Credentials [facility] Called By HANSEL ROBERTS [facility] Blood 12/03/2022 7:10 PM CDT 12/03/2022 7:38 PM CDT us Zia Camara MD LAB BLOOD ORDERABLES Final Result Performing Organization Address [facility] Co de Phone Number ARM[facility] REINA [facility] Department [place] [address] * (ABNORMAL) eGFR (12/03/2022 7:10 PM CDT) eGFR 41(L) 90 - 130 mL/min/1. 73 m2 [facility] Comment: Interpretive Data Reference Interval Normal ?>/= 90 mL/min/1.73m2 Mildly decreased* ? 60 - 89 mL/min/1.73m2 Mildly to moderately decreased ?45 - 59 mL/min/1.73m2 Moderately to severely decreased ??30 - 44 mL/min/1.73m2 Severely decreased ?15 - 29 mL/min/1.73m2 Kidney Failure ?< 15 ??mL/min/1.73m2 *Relative to young adult level Estimated glomerular filtration rate is determined by the 2020 CKD-EPI equation recommended by the National Kidney Foundation (A Unifying Approach to GFR Estimation: Recommendations of the NKF-ASK Task Force on Reassessing the Inclusion of Race in Diagnosing Kidney Disease, JASN 2020). The CKD-EPI equation should not be used for patients with unstable renal function and has not been validated in children and those over 70. Current interpretive data was last reviewed 2021. Blood 12/03/2022 7:10 PM CDT 12/03/2022 7:38 PM CDT us Zia Camara MD LAB BLOOD ORDERABLES Final Result Performing Organization Address City/[facility] Co de Phone Number ARM[facility] REINA [facility] Department [place] [address] * (ABNORMAL) Differential, auto (12/03/2022 7:10 PM CDT) Neutrophil abs 15.3(H) 1.7 - 6.5 K/cumm [facility] Imm gran abs 0.1 0.0 - 0.1 K/cumm [facility] Lymphocyte abs 1.9 0.8 - 3.3 K/cumm [facility] Monocyte abs 1.5(H) 0.2 - 0.8 K/cumm [facility] Eosinophil abs 0.0 0.0 - 0.5 K/cumm [facility] Basophil abs 0.1 0.0 - 0.1 K/cumm [facility] Neutrophil pct 80.8 % [facility] Comment: Interpretive Data Percent cell count reference ranges are not reported, since discordance with absolute values may lead to misinterpretation of CBC data. Current Interpretive Data was last revised on 2017. Imm gran pct 0.5 % [facility] Comment: Interpretive Data Percent cell count reference ranges are not reported, since discordance with absolute values may lead to misinterpretation of CBC data. Current Interpretive Data was last revised on 2017. Lymphocyte pct 10.0 % [facility] Comment: Interpretive Data Percent cell count reference ranges are not reported, since discordance with absolute values may lead to misinterpretation of CBC data. Current Interpretive Data was last revised on 2017. Monocyte pct 8.1 % [facility] Comment: Interpretive Data Percent cell count reference ranges are not reported, since discordance with absolute values may lead to misinterpretation of CBC data. Current Interpretive Data was last revised on 2017. Eosinophil pct 0.2 % [facility] Comment: Interpretive Data Percent cell count reference ranges are not reported, since discordance with absolute values may lead to misinterpretation of CBC data. Current Interpretive Data was last revised on 2017. Basophil pct 0.4 % [facility] Comment: Interpretive Data Percent cell count reference ranges are not reported, since discordance with absolute values may lead to misinterpretation of CBC data. Current Interpretive Data was last revised on 2017. Blood 12/03/2022 7:10 PM CDT 12/03/2022 7:37 PM CDT Zia Camara MD LAB BLOOD ORDERABLES Final Result Performing Organization Address [facility] Co de Phone Number [facility] [address] [place] [address] * TSH reflex to free T4 (12/03/2022 7:10 PM CDT) [facility] TSH 0.90 0.30 - 4.20 mcIUnit/mL [facility] Blood 12/03/2022 7:10 PM CDT 12/03/2022 7:25 PM CDT Anny Gongora MD LAB BLOOD ORDERABLES Maira l Result Performing Organization Address [facility] de Phone Number [facility] [address] [place] [address] * Magnesium (12/03/2022 7:10 PM CDT) [facility] Magnesium 2.3 1.4 - 2.5 mg/dL [facility] Blood 12/03/2022 7:10 PM CDT 12/03/2022 7:25 PM CDT Anny Gongora MD LAB BLOOD ORDERABLES Maira l Result Performing Organization Address [facility] de Phone Number [facility] [address] [place] [address] * (ABNORMAL) Troponin I high-sensitivity series (baseline, 2hr, 4hr, 6hr) (12/03/2022 7:10 PM CDT) [facility] Trop I hs 88(H) <=17 ng/L [facility] Comment: Interpretive Data For further [facility] resources including the diagnostic algorithm and an aid in interpretation, copy and paste this link: [email or web address].[email or web address]/show/[email or web address] Current Interpretive Data last revised 2020. Blood 12/03/2022 7:10 PM CDT 12/03/2022 7:37 PM CDT us Zia Camara MD LAB BLOOD ORDERABLES Final Result [facility] Department [place] [address] * (ABNORMAL) Basic metabolic panel (12/03/2022 7:10 PM CDT) [facility] Sodium 139 135 - 145 mmol/L [facility] Potassium, pl 2.1(C) 3.3 - 4.9 mmol/L [facility] Comment:Repeated and Verifie d Chloride 74(C) 97 - 110 mmol/L [facility] Comment:Repeated and Verifie d CO2 >45(C) 22 - 32 mmol/L [facility] Comment:Repeated and Verifie d Anion gap <20(H) 2 - 15 mmol/L [facility] Comment:Repeated and Verifie d BUN 50(H) 8 - 25 mg/dL [facility] Creatinine 1.39(H) 0.60 - 1.10 mg/dL [facility] Glucose 184 70 - 199 mg/dL [facility] Comment: Interpretive Data Fasting glucose >/= 126 mg/dl is diagnostic for diabetes. ?? Fasting is defined as no caloric intake for at least 8 hours. Fasting glucose between 100 mg/dl to 125 mg/dl is diagnostic of prediabetes. In a patient with classic symptoms of hyperglycemia or hyperglycemic crisis, a random glucose >/= 200 mg/dl is diagnostic for diabetes. In the absence of unequivocal hyperglycemia, results should be confirmed by repeat testing. The classification and Diagnosis of Diabetes Diabetes Care 2021; 46: S19-S40. Current interpretive data was last revised 2022. Calcium 10.8(H) 8.5 - 10.3 mg/dL [facility] Blood 12/03/2022 7:10 PM CDT 12/03/2022 7:25 PM CDT Zia Camara MD LAB BLOOD ORDERABLES Final Result Performing Organization Address [facility] Co de Phone Number [facility] Department [place] [address] * (ABNORMAL) CBC with auto differential (12/03/2022 7:10 PM CDT) WBC 18.9(H) 3.8 - 9.9 K/cumm [facility] Hgb 14.4 11.9 - 15.5 g/dL [facility] Hct 40.0 35.6 - 45.5 % [facility] Plt 490(H) 150 - 400 K/cumm [facility] MPV 12.1 9.1 - 12.[address] [facility] RBC 4.55 3.90 - 5.20 M/cumm [facility] MCV 87.9 81.3 - 96.[address] [facility] MCH 31.6 27.1 - 33.[address] [facility] MCHC 36.0(H) 32.3 - 35.7 g/dL [facility] RDW CV 13.3 11.1 - 14.9 % [facility] RDW SD 42.9 35.7 - 48.[address] [facility] NRBC abs 0.00 0.00 - 0.01 K/cumm [facility] Blood 12/03/2022 7:10 PM CDT 12/03/2022 7:37 PM CDT Zia Camara MD LAB BLOOD ORDERABLES Final Result [facility] Department [place] [address] * ED PERIPHERAL LINE INSERTION (12/03/2022 6:59 PM CDT) Narrative Anny Gongora MD - 12/03/2022 6:59 PM CDT Bel Sahni MD ? 12/03/2022 ??6:59 PM Peripheral line insertion Date/Time: 12/03/2022 6:59 PM Performed by: Bel Sahni MD Authorized by: Anny Gongora MD ?? Indications: ??Nursing unable to obtain Pre-procedure details: ??Hand hygiene: Hand hygiene performed prior to insertion ?Sterile barrier technique: All elements of maximal sterile technique followed ?Skin preparation: ??2% chlorhexidine ??Skin preparation agent: Skin preparation agent completely dried prior to procedure ?? Anesthesia (see MAR for exact dosages): ??Anesthesia method: ??None Procedure details: ??Catheter size: ??20 G ??Laterality: ??Right ??Location: ??Antecubital fossa ??Number of attempts: ??2 ??Ultrasound guidance was used to confirm vessel patency and needle position: Yes ?Successful placement: yes ?? Post-procedure details: ??Post-procedure: ??Dressing applied and line secured ??Patient tolerance of procedure: ??Tolerated well, no immediate complications us Anny Gongora MD IN CLINIC/BEDSIDE ORDERAB LES Final Result * ECG 12-LEAD (12/03/2022 5:50 PM CDT) Narrative [facility] C - 12/03/2022 5:50 PM CDT Anny Gongora MD ? 12/24/2022 ??6:02 PM ECG 12 lead Date/Time: 12/03/2022 5:50 PM Performed by: Chico Rodney MD Authorized by: Zia Camara MD ?? Quality: ??Tracing quality: ??Limited by artifact Comments: ?? patient has a rate of 70. ??No P waves noted, appears to be an accelerated junctional rhythm at a rate of 70. ??Alternatively, the patient may have a prolonged GA interval with the P wave buried in the T-wave. ?? Pipestem is normal. ??T-waves are inverted in AVR and V1. ??The QT interval is markedly prolonged at 604. ??Otherwise, there is some mild ST depression in leads 1, 2, V4, V5, V6. ??No comparison. ?? Abnormal EKG, further workup in the ED. nonspecific findings. us Zia Camara MD ECG ORDERABLES Edit ed Result - Final [facility]USE [facility] * CT Head WO Contrast (12/03/2022 5:34 PM CDT) Anatomical Region Laterality Modality Head and Neck N/A Computed Tomogra phy 12/03/2022 5:48 PM CDT Impressions 12/03/2022 5:51 PM CDT Bilateral cochlear implants with associated extensive streak artifact throughout the lower parietal and temporal lobes. ??Within these limitations, no acute intracranial hemorrhage. Dictated by: Conchis Sorensen M.D. The radiology attending physician has personally reviewed this study, and had reviewed and/or edited this written report and agrees with it. Electronically signed by: Fransisco Miranda M.D. Narrative 12/03/2022 5:51 PM CDT EXAMINATION: CT head without contrast HISTORY: Fall on anticoagulation. TECHNIQUE: Noncontrast CT of the brain was performed with images acquired from skull base to vertex. COMPARISON: 11/07/2006. FINDINGS: Bilateral cochlear implants are present, streak artifact associated with the biparietal components limits evaluation of the brain parenchyma at this location. ??Within these limitations, there is no acute intracranial hemorrhage. Ventricles are of normal size and morphology. No mass effect or midline shift is present. The russell-white matter differentiation is normal. The visualized portions of the orbits are normal. The visualized portions of the paranasal sinuses are normal. No fractures are identified. Procedure Note Fransisco Miranda MD - 12/03/2022 EXAMINATION: CT head without contrast HISTORY: Fall on anticoagulation. TECHNIQUE: Noncontrast CT of the brain was performed with images acquired from skull base to vertex. COMPARISON: 11/07/2006. FINDINGS: Bilateral cochlear implants are present, streak artifact associated with the biparietal components limits evaluation of the brain parenchyma at this location. Within these limitations, there is no acute intracranial hemorrhage. Ventricles are of normal size and morphology. No mass effect or midline shift is present. The russell-white matter differentiation is normal. The visualized portions of the orbits are normal. The visualized portions of the paranasal sinuses are normal. No fractures are identified. IMPRESSION: Bilateral cochlear implants with associated extensive streak artifact throughout the lower parietal and temporal lobes. Within these limitations, no acute intracranial hemorrhage. Dictated by: Conchis Sorensen M.D. The radiology attending physician has personally reviewed this study, and had reviewed and/or edited this written report and agrees with it. Electronically signed by: Fransisco Miranda M.D. Zia Camara MD [facility] CT PROCEDURES Fi nal Result * XR Chest 1 Vw Portable (12/03/2022 5:08 PM CDT) Anatomical Region Laterality Modality Body, Chest N/A Computed Radiogr aphy 12/03/2022 5:35 PM CDT Impressions 12/03/2022 6:01 PM CDT There are no prior chest radiographs for comparison. ??The cardiomediastinal silhouette is normal. Mild bibasilar atelectasis. Possible trace left pleural effusion. ??No right pleural effusion. There is no pulmonary edema, focal consolidation, or pneumothorax. Dictated by: Zia Mccloud MD PHD The radiology attending physician has personally reviewed this study, and had reviewed and/or edited this written report and agrees with it. Electronically signed by: Pedro Heredia M.D. Narrative 12/03/2022 6:01 PM CDT EXAMINATION: 1 view chest radiograph HISTORY: 67-year-old with multiple syncopal events. Procedure Note Pedro Heredia MD - 12/03/2022 EXAMINATION: 1 view chest radiograph HISTORY: 67-year-old with multiple syncopal events. IMPRESSION: There are no prior chest radiographs for comparison. The cardiomediastinal silhouette is normal. Mild bibasilar atelectasis. Possible trace left pleural effusion. No right pleural effusion. There is no pulmonary edema, focal consolidation, or pneumothorax. Dictated by: Zia Mccloud MD PHD The radiology attending physician has personally reviewed this study, and had reviewed and/or edited this written report and agrees with it. Electronically signed by: Pedro Heredia M.D. us Zia Camara MD IMG XR PROCEDURES Fi nal Result documented in this encounter Visit Diagnoses Diagnosis Syncope and collapse- Primary Syncope and collapse Anticoagulated Encounter for long-term (current) use of anticoagulants Prolonged Q-T interval on ECG Nonspecific abnormal electrocardiogram (ECG) (EKG) Hypokalemia Hypopotassemia Abnormal EKG Nonspecific abnormal electrocardiogram (ECG) (EKG) Atrial fibrillation, unspecified type (HCC) Hypokalemia Hypopotassemia Prolonged Q-T interval on ECG Nonspecific abnormal electrocardiogram (ECG) (EKG) KARINA (acute kidney injury) (HCC) Hypophosphatemia Disorders of phosphorus metabolism Atrial fibrillation (CMS/HCC) (HCC) Atrial fibrillation Atrial flutter (CMS/HCC) (HCC) Atrial flutter Metabolic alkalosis Alkalosis Leukocytosis Leukocytosis, unspecified Urinary tract infection Urinary tract infection, site not specified Type 2 diabetes mellitus (HCC) documented in this encounter Admitting Diagnoses Diagnosis Syncope and collapse Hypokalemia Hypopotassemia Prolonged Q-T interval on ECG Nonspecific abnormal electrocardiogram (ECG) (EKG) documented in this encounter Administered Medications Inactive Administered Medications - up to 3 most recent administrations Medication Order MAR Action Action Date Dose Rate Site acetaminophen (TYLENOL) tablet 1,000 mg 1,000 mg, oral, Every 6 hours PRN, 1st line for pain, Starting on Sat12/03/22 at 1928 Given 12/03/2022 7:44 PM CDT 1,000 mg acetaminophen (TYLENOL) tablet 650 mg 650 mg, oral, Every 4 hours PRN, 1st line for pain, fever, fever greater than 38.3 C, Starting on Sat12/04/22 at 0018, Indications: Fever, PainIndications:Fever,Pain Given 12/11/2022 8:19 AM CDT 650 mg Given 12/10/2022 8:52 PM CDT 650 mg Given 12/10/2022 2:15 PM CDT 650 mg amiodarone (NEXTERONE) 150 mg/100 mL (1.5 mg/mL) in dextrose (premix) 150 mg 150 mg, intravenous, at 600 mL/hr, Administer over 10 Minutes, Once, On Sat12/05/22 at 0515, For 1 dose, Use filter 0.22 micron or less New Bag 12/05/2022 4:43 AM CDT 150 mg 600 mL/hr amiodarone (NEXTERONE) 150 mg/100 mL (1.5 mg/mL) in dextrose (premix) 150 mg 150 mg, intravenous, at 600 mL/hr, Administer over 10 Minutes, Once, On Sat12/05/22 at 0600, For 1 dose, Use filter 0.22 micron or less New Bag 12/05/2022 5:37 AM CDT 150 mg 600 mL/hr amiodarone (NEXTERONE) 150 mg/100 mL (1.5 mg/mL) in dextrose (premix) 150 mg 150 mg, intravenous, at 600 mL/hr, Administer over 10 Minutes, Once, On Aparna 12/06/22 at 1015, For 1 dose, Use filter 0.22 micron or less New Bag 12/06/2022 10:05 AM CDT 150 mg 600 mL/hr amiodarone (PACERONE) tablet 400 mg 400 mg, oral, 3 times daily, First dose on 12/08/22 at 0900 Given 12/11/2022 8:15 AM CDT 400 mg Given 12/10/2022 8:53 PM CDT 400 mg Given 12/10/2022 4:59 PM CDT 400 mg amiodarone in dextrose (NEXTERONE) 360 mg/200 mL (1.8 mg/mL) infusion (premix) 1 mg/min (33.3333 mL/hr, rounded to 33.3 mL/hr), 1.8 mg/mL, intravenous, Continuous, Starting on Sat12/05/22 at 0715, Until Sat12/05/22 at 1353, Use filter 0.22 micron or less, Routine Rate/Dose Verify 12/05/2022 12:00 PM CDT 1 mg/min 33.3 mL/hr New Bag 12/05/2022 7:54 AM CDT 1 mg/min 33.3 mL/hr amiodarone in dextrose (NEXTERONE) 360 mg/200 mL (1.8 mg/mL) infusion (premix) 0.5 mg/min (16.6667 mL/hr, rounded to 16.67 mL/hr), 1.8 mg/mL, intravenous, Continuous, Starting on Sat12/05/22 at 1354, Until Sat12/05/22 at 1756, Use filter 0.22 micron or less, Routine Rate/Dose Change 12/05/2022 2:09 PM CDT 0.5 mg/min 16.67 mL/hr amiodarone in dextrose (NEXTERONE) 360 mg/200 mL (1.8 mg/mL) infusion (premix) 0.5 mg/min (16.6667 mL/hr, rounded to 16.67 mL/hr), 1.8 mg/mL, intravenous, Continuous, Starting on Aparna 12/06/22 at 1030, Until 12/08/22 at 0900, Use filter 0.22 micron or less, Routine New Bag 12/07/2022 9:13 PM CDT 0.5 mg/min 16.67 mL/hr New Bag 12/07/2022 9:01 AM CDT 0.5 mg/min 16.67 mL/hr New Bag 12/06/2022 9:59 PM CDT 0.5 mg/min 16.67 mL/hr apixaban (ELIQUIS) tablet 5 mg 5 mg, oral, Every 12 hours, First dose on Sat12/04/22 at 0045, Nurse to discontinue heparin infusion order and associated bolus at first administration of apixaban using 'order condition met' order source, Indications: atrial fibrillationIndications:atrial fibrillation Given 12/11/2022 8:15 AM CDT 5 mg Given 12/10/2022 8:52 PM CDT 5 mg Given 12/10/2022 8:45 AM CDT 5 mg atorvastatin (LIPITOR) tablet 40 mg 40 mg, oral, Nightly, First dose on Sat12/05/22 at 2100 Given 12/10/2022 8:53 PM CDT 40 mg Given 12/09/2022 8:56 PM CDT 40 mg Given 12/08/2022 9:08 PM CDT 40 mg Carrier Fluids for Secondary Infusion - 0.9% Sodium Chloride 30 mL, intravenous, As needed, For priming tubing and/or flushing, Starting on Sat12/04/22 at 0004, 0-250 ml/hr to flush line after IV infusions when no maintenance IV ordered. Infuse 30mL at the same rate as the secondary infusion. Run as primary IV, not intended for KVO. cefTRIAXone (ROCEPHIN) 1,000 mg/10 mL in sterile water (premix) 1,000 mg 1,000 mg, intravenous, at 600 mL/hr, Administer over 1 Minutes, Every 24 hours scheduled, First dose on Sat12/03/22 at 2132, For 5 doses, Indications: Urinary Tract/Genitourinary InfectionIndications:Urinary Tract/Genitourinary Infection Given 12/06/2022 9:59 PM CDT 1,000 mg 6 00 mL/hr Given 12/05/2022 8:36 PM CDT 1,000 mg 600 mL/hr Given 12/04/2022 9:01 PM CDT 1,000 mg 600 mL/hr cyclobenzaprine (FLEXERIL) tablet 10 mg 10 mg, oral, Once, On Sat12/04/22 at 2045, For 1 dose Given 12/04/2022 8:10 PM CDT 10 mg cyclobenzaprine (FLEXERIL) tablet 10 mg 10 mg, oral, 3 times daily PRN, muscle spasms, Starting on Sat12/05/22 at 0601 Given 12/07/2022 9:14 PM CDT 10 mg Given 12/05/2022 8:36 PM CDT 10 mg dextrose (D10W) 10% bolus 250 mL 250 mL, intravenous, at 1,000 mL/hr, Administer over 15 Minutes, Every 15 min PRN, blood glucose less than 70 mg/dL and UNABLE to swallow/take PO glucose/juice., Starting on Sat12/04/22 at 1617, After treatment for hypoglycemia, recheck BG followed by treatment every 15 minutes until the BG is greater than 100 mg/dL. Then check BG 1 hour post treatment. If BG is less than 100 mg/dL, repeat Q15 minute BG checks and treatment. Call MD for each episode of hypoglycemia., Indications: hypoglycemic disorderIndications:hypoglycemic disorder dextrose gel in packet 15 g 15 g, oral, Every 15 min PRN, low blood sugar, blood glucose less than 70 mg/dL, Starting on Sat12/04/22 at 1617, If patient is alert and able to eat/drink, give 15 gm glucose or one juice (4 fluid ounces) NOT ORANGE JUICE. After treatment for hypoglycemia, recheck BG followed by treatment every 15 minutes until the BG is greater than 100 mg/dL. Then check BG 1 hour post-treatment. If BG is less than 100 mg/dL, repeat Q15 minute BG checks and treatment. Call MD for each episode of hypoglycemia., Indications: hypoglycemic disorderIndications:hypoglycemic disorder dilTIAZem (CARDIZEM) tablet 45 mg 45 mg, oral, 4 times daily, First dose on Sat12/06/22 at 0600 Given 12/06/2022 5:59 AM CDT 45 mg dilTIAZem CD/XR/XT (CARDIZEM CD,DILACOR XR) 24 hour capsule 120 mg 120 mg, oral, Daily, First dose on Sat12/05/22 at 1630, Do not crush, chew, cut, dissolve, open or otherwise manipulate tablet/capsule. Given 12/05/2022 6:18 PM CDT 120 mg furosemide (LASIX) tablet 20 mg 20 mg, oral, Daily, First dose on Sat12/09/22 at 1430, On hold since Sat12/10/2022 at 0808 until manually unheld Given 12/09/2022 2:11 PM CDT 20 mg gabapentin (NEURONTIN) capsule 100 mg 100 mg, oral, Once, On Sat12/04/22 at 0645, For 1 dose Given 12/04/2022 9:28 AM CDT 100 mg gabapentin (NEURONTIN) capsule 100 mg 100 mg, oral, 3 times daily, First dose on Sat12/04/22 at 1745 Given 12/06/2022 8:28 AM CDT 100 mg Given 12/05/2022 6:17 PM CDT 100 mg Given 12/05/2022 7:54 AM CDT 100 mg gabapentin (NEURONTIN) capsule 100 mg 100 mg, oral, 3 times daily, First dose (after last modification) on Sat12/07/22 at 1600 Given 12/11/2022 8:15 AM CDT 100 mg Given 12/10/2022 8:53 PM CDT 100 mg Given 12/10/2022 4:59 PM CDT 100 mg gabapentin (NEURONTIN) capsule 200 mg 200 mg, oral, 3 times daily, First dose (after last modification) on Sat12/06/22 at 1600 Given 12/07/2022 8:50 AM CDT 200 mg Given 12/06/2022 9:45 PM CDT 200 mg Given 12/06/2022 4:52 PM CDT 200 mg glucagon injection 1 mg 1 mg, intramuscular, Every 30 min PRN, low blood sugar, blood glucose less than 70 mg/dL AND no IV access AND unable to take PO glucose/juice., Starting on Sat12/04/22 at 1617, After Glucagon is administered, position patient on side if possible to avoid aspiration. Obtain IV access. Follow glucagon treatment with glucose treatment or IV dextrose. After treatment for hypoglycemia, recheck BG followed by treatment every 15 minutes until the BG is greater than 100 mg/dL. Then check BG 1 hour post treatment. If BG is less than 100 mg/dL, repeat Q15 minute BG checks and treatment. Call MD for each episode of hypoglycemia. Reconstitute 1 mg vial with 1 mL SWFI. Use immediately following reconstitution. imipramine (TOFRANIL) tablet 50 mg 50 mg, oral, Daily, First dose on Sat12/04/22 at 0900 Given 12/11/2022 8:15 AM CDT 50 mg Given 12/10/2022 8:45 AM CDT 50 mg Given 12/09/2022 8:40 AM CDT 50 mg insulin glargine (LANTUS, SEMGLEE) 100 unit/mL injection 2 Units 2 Units, subcutaneous, Nightly, First dose (after last modification) on Sat12/08/22 at 2100, Do not hold if NPO. Do not mix with other insulins, Indications: Diabetes MellitusIndications:Diabetes Mellitus Given 12/10/2022 8:54 PM CDT 2 Units Left Forearm Given 12/09/2022 8:57 PM CDT 2 Units Le ft Forearm Given 12/08/2022 9:08 PM CDT 2 Units Le ft Forearm insulin lispro (HumaLOG, ADMELOG) 100 unit/mL injection 0-4 Units 0-4 Units, subcutaneous, Nightly, First dose on Sat12/04/22 at 2100, Blood glucose mg/dL: 199 or less: No insulin 200-249: add 1 unit 250-299: add 2 units 300-349: add 3 units and notify physician for adjustment of insulin orders. 350-399: add 4 units and notify physician for adjustment of insulin orders. Over 400: Notify physician for adjustment of insulin orders. Do NOT hold for NPO Status, Indications: Diabetes MellitusIndications:Diabetes Mellitus Given 12/07/2022 9:15 PM CDT 1 Units Left Upper Arm Given 12/06/2022 9:45 PM CDT 1 Units Le ft Upper Arm Given 12/05/2022 8:41 PM CDT 1 Units Le ft Lower Abdomen insulin lispro (HumaLOG, ADMELOG) 100 unit/mL injection 0-5 Units 0-5 Units, subcutaneous, 3 times daily with meals, First dose on Sat12/04/22 at 1800, Blood glucose mg/dL: 149 or less: No insulin 150-199: add 1 unit 200-249: add 2 units 250-299: add 3 units 300-349: add 4 units and notify physician for adjustment of insulin orders. 350-399: add 5 units and notify physician for adjustment of insulin orders. Over 400: Notify physician for adjustment of insulin orders. Do NOT hold for NPO Status, Indications: Diabetes MellitusIndications:Diabetes Mellitus Given 12/10/2022 12:03 PM CDT 1 Units Left Lower Abdomen Given 12/10/2022 8:45 AM CDT 1 Units Le ft Lower Abdomen Given 12/09/2022 12:49 PM CDT 1 Units L eft Lower Abdomen insulin lispro (HumaLOG, ADMELOG) 100 unit/mL injection 2 Units 2 Units, subcutaneous, 3 times daily with meals, First dose (after last modification) on Sat12/07/22 at 1800, If BG greater than or equal to 100 mg/dL, give dose with meals when tray arrives in the room. If BG less than 100 mg/dL or history of poor intake, give after meals. If patient eating less than 50% of meal, call MD for holding or reducing meal insulin dose. Hold prandial insulin if NPO, unable to eat, or if BG less than 70 mg/dL., Indications: Diabetes MellitusIndications:Diabetes Mellitus Given 12/07/2022 4:59 PM CDT 2 Units Left Upper Abdomen insulin lispro (HumaLOG, ADMELOG) 100 unit/mL injection 4 Units 4 Units (rounded from 3.615 Units = 0.05 Units/kg ? 72.3 kg Dosing weight), subcutaneous, 3 times daily with meals, First dose on Sat12/07/22 at 0800, If BG greater than or equal to 100 mg/dL, give dose with meals when tray arrives in the room. If BG less than 100 mg/dL or history of poor intake, give after meals. If patient eating less than 50% of meal, call MD for holding or reducing meal insulin dose. Hold prandial insulin if NPO, unable to eat, or if BG less than 70 mg/dL., Indications: Diabetes MellitusIndications:Diabetes Mellitus Given 12/07/2022 12:08 PM CDT 4 Units Left Lower Abdomen Given 12/07/2022 8:51 AM CDT 4 Units Le ft Lower Abdomen insulin lispro (HumaLOG, ADMELOG) 100 unit/mL injection 4 Units 4 Units, subcutaneous, 3 times daily with meals, First dose (after last modification) on Sat12/08/22 at 0800, If BG greater than or equal to 100 mg/dL, give dose with meals when tray arrives in the room. If BG less than 100 mg/dL or history of poor intake, give after meals. If patient eating less than 50% of meal, call MD for holding or reducing meal insulin dose. Hold prandial insulin if NPO, unable to eat, or if BG less than 70 mg/dL., Indications: Diabetes MellitusIndications:Diabetes Mellitus Given 12/11/2022 12:18 PM CDT 4 Units Left Lower Abdomen Given 12/11/2022 8:15 AM CDT 4 Units Le ft Lower Abdomen Given 12/10/2022 6:26 PM CDT 4 Units Le ft Lower Abdomen lidocaine (LIDODERM) 5 % patch 2 patch 2 patch, transdermal, Administer over 12 Hours, Daily PRN, 2nd line for pain, Starting on Sat12/04/22 at 0018, Do not cover the holes on the top side of the patch., Apply to affected area: other Medication Applied 12/04/2022 8:13 PM CDT 2 patches Back Medication Applied 12/04/2022 12:49 AM CDT 2 patches Back lidocaine (LMX) 4 % cream 1 Application 1 Application, topical, 3 times daily PRN, 2nd line for pain, Starting on Sat12/07/22 at 1453, Apply to affected area: rash, abdomen Given 12/09/2022 11:34 PM CDT 1 Application Given 12/09/2022 8:41 AM CDT 1 Application Given 12/08/2022 9:17 PM CDT 1 Application magnesium sulfate 2 g/50 mL in water (premix) 2 g 2 g, intravenous, Administer over 60 Minutes, Once, On Sat12/03/22 at 1749, For 1 dose New Bag 12/03/2022 7:11 PM CDT 2 g magnesium sulfate 2 g/50 mL in water (premix) 2 g 2 g, intravenous, Administer over 60 Minutes, Once, On Sat12/03/22 at 2048, For 1 dose New Bag 12/03/2022 9:06 PM CDT 2 g magnesium sulfate 2 g/50 mL in water (premix) 2 g 2 g, intravenous, Administer over 60 Minutes, Once, On Sat12/07/22 at 0200, For 1 dose New Bag 12/07/2022 3:00 AM CDT 2 g magnesium sulfate 2 g/50 mL in water (premix) 2 g 2 g, intravenous, Administer over 60 Minutes, Once, On Sat12/09/22 at 1315, For 1 dose New Bag 12/09/2022 12:46 PM CDT 2 g magnesium sulfate 2 g/50 mL in water (premix) 2 g 2 g, intravenous, Administer over 60 Minutes, Once, On Sat12/10/22 at 1115, For 1 dose New Bag 12/10/2022 12:03 PM CDT 2 g magnesium sulfate 2 g/50 mL in water (premix) 2 g 2 g, intravenous, Administer over 60 Minutes, Once, On Sat12/11/22 at 1200, For 1 dose New Bag 12/11/2022 12:48 PM CDT 2 g magnesium sulfate 4 g/100 mL in water (premix) 4 g 4 g, intravenous, Administer over 90 Minutes, Once, On Sat12/05/22 at 1715, For 1 dose New Bag 12/05/2022 6:17 PM CDT 4 g magnesium sulfate 4 g/100 mL in water (premix) 4 g 4 g, intravenous, Administer over 90 Minutes, Once, On Sat12/08/22 at 0400, For 1 dose New Bag 12/08/2022 5:31 AM CDT 4 g metoprolol (LOPRESSOR) injection 5 mg 5 mg, intravenous, Administer over 1 Minutes, Once, On Sat12/05/22 at 0500, For 1 dose Given 12/05/2022 4:21 AM CDT 5 mg metoprolol (LOPRESSOR) injection 5 mg 5 mg, intravenous, Administer over 1 Minutes, Once, On Sat12/05/22 at 0500, For 1 dose Given 12/05/2022 4:30 AM CDT 5 mg metoprolol (LOPRESSOR) injection 5 mg 5 mg, intravenous, Administer over 1 Minutes, Once, On Sat12/05/22 at 0515, For 1 dose Given 12/05/2022 4:36 AM CDT 5 mg metoprolol (LOPRESSOR) injection 5 mg 5 mg, intravenous, Administer over 1 Minutes, Once, On Sat12/06/22 at 0530, For 1 dose Given 12/06/2022 4:53 AM CDT 5 mg metoprolol (LOPRESSOR) injection 5 mg 5 mg, intravenous, Once, On Sat12/06/22 at 0900, For 1 dose, Created by edward gil Given 12/06/2022 8:29 AM CDT 5 mg metoprolol tartrate (LOPRESSOR) immediate release tablet 12.5 mg 12.5 mg, oral, Every 6 hours, First dose on Sat12/07/22 at 1430 Given 12/08/2022 2:28 PM CDT 12.5 mg Given 12/08/2022 8:54 AM CDT 12.5 mg Given 12/08/2022 2:20 AM CDT 12.5 mg metoprolol tartrate (LOPRESSOR) immediate release tablet 25 mg 25 mg, oral, 2 times daily, First dose (after last modification) on Sat12/08/22 at 2100, For 1 dose Given 12/08/2022 9:08 PM CDT 25 mg metoprolol XL (TOPROL-XL) extended release tablet 50 mg 50 mg, oral, Daily, First dose on Sat12/09/22 at 0900, Tablets that are scored may be split, but do not crush, chew, dissolve, open or otherwise manipulate tablet/capsule. Given 12/11/2022 8:15 AM CDT 50 m g Given 12/10/2022 8:44 AM CDT 50 mg Given 12/09/2022 8:40 AM CDT [address] (PROTONIX) extended release tablet 40 mg 40 mg, oral, Daily, First dose on Sat12/04/22 at 0900, Do not crush, chew, cut, dissolve, open or otherwise manipulate tablet/capsule., Indications: Treatment of Non-Bleeding Gastric DisorderIndications:Treatment of Non-Bleeding Gastric Disorder Given 12/11/2022 8:15 AM CDT 40 mg Given 12/10/2022 8:45 AM CDT 40 mg Given 12/09/2022 8:40 AM CDT 40 mg perflutren protein-a (OPTISON) 3 mL in sodium chloride 0.9% 8 mL syringe 1-8 mL, intravenous, Once in imaging, contrast, Starting on Sat12/04/22 at 1416, For 1 dose, Intra-Procedure (CV) Given by Other 12/04/2022 3:32 PM CDT 2 mL polyethylene glycol (MIRALAX) packet 17 g 17 g, oral, Daily PRN, constipation, Starting on Sat12/04/22 at 0004, Indications: constipationIndications:consti pation Given 12/08/2022 9:15 PM CDT 17 g potassium chloride (KLOR-CON) packet 40 mEq 40 mEq, oral, Once, On Sat12/03/22 at 2047, For 1 dose, Total dose = 80 mEq. Recommend to dilute each 15 mL with at least 6 ounces of water or juice prior to administration. Dissolve one packet in at least 120 mL of cold water or other beverage prior to administration. Given 12/03/2022 9:06 PM CDT 40 mEq potassium chloride 40 mEq/520 mL in sodium chloride 0.9% (premix) 40 mEq 40 mEq, intravenous, at 130 mL/hr, Administer over 4 Hours, Every 4 hours, First dose on Sat12/03/22 at 2037, For 2 doses, Total dose = 80 mEq, Indications: hypokalemiaIndications:hypokal emia New Bag 12/03/2022 9:06 PM CDT 40 mEq 130 mL/hr potassium chloride 40 mEq/520 mL in sodium chloride 0.9% (premix) 40 mEq 40 mEq, intravenous, at 130 mL/hr, Administer over 4 Hours, Every 4 hours, First dose (after last reorder) on Sat12/04/22 at 0200, For 2 doses, Total dose = 80 mEq, Indications: hypokalemiaIndications:hypokal emia New Bag 12/04/2022 6:05 AM CDT 40 mEq 130 mL/hr New Bag 12/04/2022 2:00 AM CDT 40 mEq 130 mL/hr potassium chloride 40 mEq/520 mL in sodium chloride 0.9% (premix) 40 mEq 40 mEq, intravenous, at 130 mL/hr, Administer over 4 Hours, Once, On Sat12/04/22 at 1900, For 1 dose, Indications: hypokalemiaIndications:hypokalemia New Bag 12/04/2022 11:22 PM CDT 40 mE q 130 mL/hr potassium chloride ER (KLOR-CON) extended release tablet 10 mEq 10 mEq, oral, Once, On Sat12/07/22 at 0200, For 1 dose, Tablets should not be crushed, chewed, dissolved, or otherwise manipulated. Capsules may be opened and sprinkled on a spoonful of applesauce or pudding, but the contents of the capsule should not be crushed or chewed. Given 12/07/2022 3:01 AM CDT 10 mEq potassium chloride ER (KLOR-CON) extended release tablet 10 mEq 10 mEq, oral, Once, On Sat12/11/22 at 1200, For 1 dose, Tablets should not be crushed, chewed, dissolved, or otherwise manipulated. Capsules may be opened and sprinkled on a spoonful of applesauce or pudding, but the contents of the capsule should not be crushed or chewed. Given 12/11/2022 12:18 PM CDT 10 mEq potassium chloride ER (KLOR-CON) extended release tablet 20 mEq 20 mEq, oral, Once, On Sat12/08/22 at 0400, For 1 dose, Tablets should not be crushed, chewed, dissolved, or otherwise manipulated. Capsules may be opened and sprinkled on a spoonful of applesauce or pudding, but the contents of the capsule should not be crushed or chewed. Given 12/08/2022 5:31 AM CDT 20 mEq potassium chloride ER (KLOR-CON) extended release tablet 40 mEq 40 mEq, oral, Every 4 hours, First dose on Sat12/04/22 at 0800, For 3 doses, Tablets should not be crushed, chewed, dissolved, or otherwise manipulated. Capsules may be opened and sprinkled on a spoonful of applesauce or pudding, but the contents of the capsule should not be crushed or chewed. Given 12/04/2022 5:29 PM CDT 40 mEq Given 12/04/2022 12:40 PM CDT 40 mEq Given 12/04/2022 9:25 AM CDT 40 mEq potassium phosphates 30 mmol in sodium chloride 0.9% 500 mL IVPB 30 mmol, intravenous, at 85 mL/hr, Administer over 6 Hours, Once, On Sat12/04/22 at 1300, For 1 dose, For PERIPHERAL line administration Each 1 mmol of phosphorus ordered contains ~1.5 mEq of potassium. New Bag 12/04/2022 12:40 PM CDT 30 mmol 85 mL/hr potassium, sodium phosphates (PHOS-NAK) 280-160-250 mg packet 1 packet 1 packet, oral, 4 times daily before meals & nightly, First dose on Sat12/04/22 at 1300, Each packet contains elemental phosphorus 250 mg (8 mmol), potassium 280 mg (7.1 mEq), and sodium 160 mg (6.9 mEq). Given 12/09/2022 12:48 PM CDT 1 packet Given 12/09/2022 8:40 AM CDT 1 packet Given 12/08/2022 9:08 PM CDT 1 packet potassium, sodium phosphates (PHOS-NAK) 280-160-250 mg packet 1 packet 1 packet, oral, 3 times daily before meals, First dose (after last modification) on Sat12/09/22 at 1730, Each packet contains elemental phosphorus 250 mg (8 mmol), potassium 280 mg (7.1 mEq), and sodium 160 mg (6.9 mEq). Given 12/11/2022 12:18 PM CDT 1 packet Given 12/11/2022 8:15 AM CDT 1 packet Given 12/10/2022 4:59 PM CDT 1 packet ramelteon (ROZEREM) tablet 8 mg 8 mg, oral, Nightly PRN, sleep, Starting on Sat12/09/22 at 2036, Indications: Sleep-Onset InsomniaIndications:Sleep-Onset Insomnia Given 12/10/2022 8:53 PM CDT 8 m g Given 12/09/2022 8:57 PM CDT 8 mg simvastatin (ZOCOR) tablet 80 mg 80 mg, oral, Daily, First dose on Sat12/04/22 at 0900 Given 12/05/2022 7:53 AM CDT 80 mg Given 12/04/2022 9:24 AM CDT 80 mg sodium chloride 0.9% bolus 1,000 mL 1,000 mL, intravenous, Once, On Sat12/03/22 at 2050, For 1 dose New Bag 12/03/2022 9:05 PM CDT 1,000 mL sodium chloride 0.9% flush 0.5-20 mL 0.5-20 mL, intra-catheter, Every 8 hours scheduled, First dose on Sat12/04/22 at 0045, Flush volume based on line type and size. Given 12/11/2022 6:13 AM CDT 10 mL Given 12/10/2022 8:55 PM CDT 10 mL Given 12/09/2022 8:58 PM CDT 10 mL sodium chloride 0.9% flush 0.5-20 mL 0.5-20 mL, intra-catheter, Every 8 hours scheduled, First dose on Sat12/04/22 at 0045, Flush volume based on line type and size. Given 12/11/2022 6:13 AM CDT 10 mL Given 12/10/2022 8:55 PM CDT 10 mL Given 12/09/2022 8:57 PM CDT 10 mL sodium chloride 0.9% flush 0.5-20 mL 0.5-20 mL, intra-catheter, As needed, line care, Starting on Sat12/04/22 at 0004, Flush volume based on line type and size. Flush before and after each use. documented in this encounter Discontinued Medications Medication Sig Discontinue Reason Start Date End Da te cyclobenzaprine (FLEXERIL) 10 mg tablet Take 1 tablet (10 mg total) by mouth every 8 (eight) hours Stop Taking at Discharge 10/25/2022 12/11/2022 Tiadylt ER 120 mg 24 hr capsule Take 1 capsule (120 mg total) by mouth every morning Stop Taking at Discharge 11/26/2022 12/11/2022 furosemide (LASIX) 40 mg tablet Take 1 tablet (40 mg total) by mouth 2 (two) times a day Stop Taking at Discharge 11/20/2022 12/11/2022 gabapentin (NEURONTIN) 300 mg capsule Take 1 capsule (300 mg total) by mouth daily Stop Taking at Discharge 11/30/2022 12/11/2022 hydroCHLOROthiazide (HYDRODIURIL) 25 mg tablet Take 1 tablet (25 mg total) by mouth daily Stop Taking at Discharge 10/24/2022 12/11/2022 potassium chloride ER 20 mEq CR tablet Take 1 tablet (20 mEq total) by mouth daily Stop Taking at Discharge 11/20/2022 12/11/2022 propranolol LA (INDERAL LA) 120 mg 24 hr capsule Take 1 capsule (120 mg total) by mouth daily Stop Taking at Discharge 11/16/2022 12/11/2022 simvastatin (ZOCOR) 80 mg tablet Take 1 tablet (80 mg total) by mouth daily Stop Taking at Discharge 10/24/2022 12/11/2022 sotaloL (BETAPACE) 80 mg tablet Take 1 tablet (80 mg total) by mouth every 12 (twelve) hours Stop Taking at Discharge 11/26/2022 12/11/2022 documented as of this encounter Historical Medications * This list may reflect changes made after this encounter. omeprazole (PriLOSEC) 20 mg capsule Take 1 capsule (20 mg total) by mouth daily 11/19/2022 sotaloL (BETAPACE) 80 mg tablet Take 1 tablet (80 mg total) by mouth every 12 (twelve) hours 11/26/2022 12/11/2022 simvastatin (ZOCOR) 80 mg tablet Take 1 tablet (80 mg total) by mouth daily 10/24/2022 12/11/2022 propranolol LA (INDERAL LA) 120 mg 24 hr capsule Take 1 capsule (120 mg total) by mouth daily 11/16/2022 12/11/2022 potassium chloride ER 20 mEq CR tablet Take 1 tablet (20 mEq total) by mouth daily 11/20/2022 12/11/2022 magnesium oxide (MAG-OX) 400 mg (241.3 mg elemental magnesium) tablet Take 1 tablet (400 mg total) by mouth every morning 11/20/2022 04/01/2023 imipramine (TOFRANIL) 50 mg tablet TAKE 1 TABLET BY MOUTH DAILY - LAST REFILL UNTIL SEEN 11/18/2022 07/19/2023 hydroCHLOROthiazi de (HYDRODIURIL) 25 mg tablet Take 1 tablet (25 mg total) by mouth daily 10/24/2022 12/11/2022 gabapentin (NEURONTIN) 300 mg capsule Take 1 capsule (300 mg total) by mouth daily 11/30/2022 12/11/2022 furosemide (LASIX) 40 mg tablet Take 1 tablet (40 mg total) by mouth 2 (two) times a day 11/20/2022 12/11/2022 Tiadylt ER 120 mg 24 hr capsule Take 1 capsule (120 mg total) by mouth every morning 11/26/2022 12/11/2022 cyclobenzaprine (FLEXERIL) 10 mg tablet Take 1 tablet (10 mg total) by mouth every 8 (eight) hours 10/25/2022 12/11/2022 Eliquis 5 mg tablet Take 1 tablet (5 mg total) by mouth every 12 (twelve) hours 11/20/2022 11/08/2023 added in this encounter Active and Recently Administered Medications Times are shown in CDT. Scheduled Medication Order 12/09/2022 12/10/2022 12/11/2022 amiodarone (PACERONE) tablet 400 mg 400 mg, oral, 3 times daily, First dose on Sat12/08/22 at 0900 0841 (Given - Provider: Matt Gold RN)1541 (Given - Provider: Matt Gold RN)2055 (Given - Provider: Muriel Szymanski RN) 0845 (Given - Provider: Filiberto Rankin RN)1659 (Given - Provider: Filiberto Rankin RN)2052 (Given - Provider: Muriel Szymanski RN) 0815 (Given - Provider: Filiberto Rankin RN)1600 (Due) apixaban (ELIQUIS) tablet 5 mg 5 mg, oral, Every 12 hours, First dose on Sat12/04/22 at 0045, Nurse to discontinue heparin infusion order and associated bolus at first administration of apixaban using 'order condition met' order source, Indications: atrial fibrillation 0841 (Given - Provider: Matt Gold RN)2055 (Given - Provider: Muriel Szymanski RN) 0845 (Given - Provider: Filiberto Rankin, GLADYS)2051 (Given - Provider: Muriel Szymanski RN) 0815 (Given - Provider: Filiberto Rankin RN) atorvastatin (LIPITOR) tablet 40 mg 40 mg, oral, Nightly, First dose on Sat12/05/22 at 2100 205 (Given - Provider: Muriel Szymanski RN) 2052 (Given - Provider: Muriel Szymanski RN) furosemide (LASIX) tablet 20 mg 20 mg, oral, Daily, First dose on Sat12/09/22 at 1430, On hold since Sat12/10/2022 at 0808 until manually unheld 1411 (Given - Provider: Matt Gold RN) 0808 (Held by Provider - Provider: Jessica Roy MD - Reason: Change in Patient Status)0900 (Dose Auto Held - Provider: Jessica Roy MD) 0900 (Dose Auto Held - Provider: Jessica Roy MD)2022 (Unheld by Provider - Provider: Automatic Discharge Provider) gabapentin (NEURONTIN) capsule 100 mg 100 mg, oral, 3 times daily, First dose (after last modification) on Sat12/07/22 at 1600 0840 (Given - Provider: Matt Gold RN)1541 (Given - Provider: Matt Gold RN)2055 (Given - Provider: Muriel Szymanski RN) 0844 (Given - Provider: Filiberto Rankin RN)165 (Given - Provider: Filiberto Rankin RN)2052 (Given - Provider: Muriel Szymanski RN) 0815 (Given - Provider: Filiberto Rankin, GLADYS)1600 (Due) imipramine (TOFRANIL) tablet 50 mg 50 mg, oral, Daily, First dose on Sat12/04/22 at 0900 0840 (Given - Provider: Matt Gold RN) 0845 (Given - Provider: Filiberto Rankin, GLADYS) 0815 (Given - Provider: Filiberto Rankin, GLADYS) insulin glargine (LANTUS, SEMGLEE) 100 unit/mL injection 2 Units 2 Units, subcutaneous, Nightly, First dose (after last modification) on Sat12/08/22 at 2100, Do not hold if NPO. Do not mix with other insulins, Indications: Diabetes Mellitus 2056 (Given - Provider: Muriel Szymanski RN) 2053 (Given - Provider: Muriel Szymanski, GLADYS) insulin lispro (HumaLOG, ADMELOG) 100 unit/mL injection 0-4 Units 0-4 Units, subcutaneous, Nightly, First dose on Sat12/04/22 at 2100, Blood glucose mg/dL: 199 or less: No insulin 200-249: add 1 unit 250-299: add 2 units 300-349: add 3 units and notify physician for adjustment of insulin orders. 350-399: add 4 units and notify physician for adjustment of insulin orders. Over 400: Notify physician for adjustment of insulin orders. Do NOT hold for NPO Status, Indications: Diabetes Mellitus 2099 (Not Given - Provider: Muriel Szymanski RN - Reason: Order parameters not met) 2053 (Not Given - Provider: Muriel Szymanski RN - Reason: Order parameters not met) insulin lispro (HumaLOG, ADMELOG) 100 unit/mL injection 0-5 Units 0-5 Units, subcutaneous, 3 times daily with meals, First dose on Sat12/04/22 at 1800, Blood glucose mg/dL: 149 or less: No insulin 150-199: add 1 unit 200-249: add 2 units 250-299: add 3 units 300-349: add 4 units and notify physician for adjustment of insulin orders. 350-399: add 5 units and notify physician for adjustment of insulin orders. Over 400: Notify physician for adjustment of insulin orders. Do NOT hold for NPO Status, Indications: Diabetes Mellitus 0745 (Not Given - Provider: Matt Gold RN - Reason: Order parameters not met)1249 (Given - Provider: Matt Gold RN)1735 (Not Given - Provider: Matt Gold RN - Reason: Order parameters not met) 0845 (Given - Provider: Filiberto Rankin, GLADYS)1203 (Given - Provider: Filiberto RankinGLADYS)1828 (Hold - Provider: Filiberto Rankin RN - Reason: Order parameters not met) 0800 (Hold - Provider: Filiberto Rankin RN - Reason: Order parameters not met)1142 (Hold - Provider: Filiberto Rankin RN - Reason: Order parameters not met) insulin lispro (HumaLOG, ADMELOG) 100 unit/mL injection 4 Units 4 Units, subcutaneous, 3 times daily with meals, First dose (after last modification) on Sat12/08/22 at 0800, If BG greater than or equal to 100 mg/dL, give dose with meals when tray arrives in the room. If BG less than 100 mg/dL or history of poor intake, give after meals. If patient eating less than 50% of meal, call MD for holding or reducing meal insulin dose. Hold prandial insulin if NPO, unable to eat, or if BG less than 70 mg/dL., Indications: Diabetes Mellitus 0841 (Given - Provider: Matt Gold RN)1249 (Given - Provider: Matt Gold RN)1756 (Given - Provider: Matt Gold RN) 0845 (Given - Provider: Filiberto Rankin RN)1203 (Given - Provider: Filiberto Rankin RN)1826 (Given - Provider: Filiberto Rankin RN) 0815 (Given - Provider: Filiberto Rankin RN)1218 (Given - Provider: Filiberto Rankin RN) magnesium sulfate 2 g/50 mL in water (premix) 2 g (COMPLETED) 2 g, intravenous, Administer over 60 Minutes, Once, On Sat12/09/22 at 1315, For 1 dose 1246 (New Bag - Provider: Matt Gold RN) magnesium sulfate 2 g/50 mL in water (premix) 2 g (COMPLETED) 2 g, intravenous, Administer over 60 Minutes, Once, On Sat12/10/22 at 1115, For 1 dose 1203 (New Bag - Provider: Filiberto Rankin RN) magnesium sulfate 2 g/50 mL in water (premix) 2 g (COMPLETED) 2 g, intravenous, Administer over 60 Minutes, Once, On Sat12/11/22 at 1200, For 1 dose 1248 (New Bag - Provider: Filiberto Rankin RN) metoprolol XL (TOPROL-XL) extended release tablet 50 mg 50 mg, oral, Daily, First dose on Sat12/09/22 at 0900, Tablets that are scored may be split, but do not crush, chew, dissolve, open or otherwise manipulate tablet/capsule. 0840 (Given - Provider: Matt Gold RN) 0844 (Given - Provider: Filiberto Rankin RN) 0815 (Given - Provider: Filiberto Rankin RN) pantoprazole DR (PROTONIX) extended release tablet 40 mg 40 mg, oral, Daily, First dose on Sat12/04/22 at 0900, Do not crush, chew, cut, dissolve, open or otherwise manipulate tablet/capsule., Indications: Treatment of Non-Bleeding Gastric Disorder 0840 (Given - Provider: Matt Gold RN) 0845 (Given - Provider: Filiberto Rankin RN) 0815 (Given - Provider: Filiberto Rankin RN) potassium chloride ER (KLOR-CON) extended release tablet 10 mEq (COMPLETED) 10 mEq, oral, Once, On Sat12/11/22 at 1200, For 1 dose, Tablets should not be crushed, chewed, dissolved, or otherwise manipulated. Capsules may be opened and sprinkled on a spoonful of applesauce or pudding, but the contents of the capsule should not be crushed or chewed. 1218 (Given - Provider: Filiberto Rankin RN) potassium, sodium phosphates (PHOS-NAK) 280-160-250 mg packet 1 packet (CANCELED) 1 packet, oral, 4 times daily before meals & nightly, First dose on Sat12/04/22 at 1300, Each packet contains elemental phosphorus 250 mg (8 mmol), potassium 280 mg (7.1 mEq), and sodium 160 mg (6.9 mEq). 0840 (Given - Provider: Matt Gold RN)1248 (Given - Provider: Matt Gold RN) potassium, sodium phosphates (PHOS-NAK) 280-160-250 mg packet 1 packet 1 packet, oral, 3 times daily before meals, First dose (after last modification) on Sat12/09/22 at 1730, Each packet contains elemental phosphorus 250 mg (8 mmol), potassium 280 mg (7.1 mEq), and sodium 160 mg (6.9 mEq). 1714 (Given - Provider: Matt Gold RN) 0845 (Given - Provider: Filiberto Rankin RN)1202 (Given - Provider: Filiberto Rankin, GLADYS)1659 (Given - Provider: Filiberto Rankin RN) 0815 (Given - Provider: Filiberto Rankin RN)1218 (Given - Provider: Filiberto Rankin RN) sodium chloride 0.9% flush 0.5-20 mL 0.5-20 mL, intra-catheter, Every 8 hours scheduled, First dose on Sat12/04/22 at 0045, Flush volume based on line type and size. 0614 (Not Given - Provider: Muriel Szymanski RN - Reason: Other - Comment: given during medication admin)125 (Given - Provider: Matt Gold RN)2057 (Given - Provider: Muriel Szymanski RN) 0735 (Not Given - Provider: Filiberto Rankin RN - Reason: Other)1230 (Not Given - Provider: Filiberto Rankin RN - Reason: Other)2054 (Given - Provider: Muriel Szymanski RN) 0613 (Given - Provider: Muriel Szymanski RN)1248 (Not Given - Provider: Filiberto Rankin RN - Reason: Other) sodium chloride 0.9% flush 0.5-20 mL(Linked Group 1) 0.5-20 mL, intra-catheter, Every 8 hours scheduled, First dose on Sat12/04/22 at 0045, Flush volume based on line type and size. 0614 (Not Given - Provider: Muriel Szymanski RN - Reason: Other - Comment: given during medication admin)1256 (Given - Provider: Matt Gold RN)2056 (Given - Provider: Muriel Szymanski RN) 0735 (Not Given - Provider: Filiberto Rankin RN - Reason: Other)1230 (Not Given - Provider: Filiberto Rankin RN - Reason: Other)2054 (Given - Provider: Muriel Szymanski RN) 0613 (Given - Provider: Muriel Szymanski RN)1249 (Not Given - Provider: Filiberto Rankin RN - Reason: Other) PRN Medication Order 12/09/2022 12/10/2022 12/11/2022 acetaminophen (TYLENOL) tablet 650 mg 650 mg, oral, Every 4 hours PRN, 1st line for pain, fever, fever greater than 38.3 C, Starting on Sat12/04/22 at 0018, Indications: Fever, Pain 0840 (Given - Provider: Matt Gold RN - Comment: headache)1716 (Given - Provider: Matt Gold RN - Comment: headache)2335 (Given - Provider: Muriel Szymanski RN) 0845 (Given - Provider: Filiberto Rankin RN)1415 (Given - Provider: Filiberto Rankin RN)205 (Given - Provider: Muriel Szymanski RN) 0819 (Given - Provider: Filiberto Rankin RN) Carrier Fluids for Secondary Infusion - 0.9% Sodium Chloride 30 mL, intravenous, As needed, For priming tubing and/or flushing, Starting on Sat12/04/22 at 0004, 0-250 ml/hr to flush line after IV infusions when no maintenance IV ordered. Infuse 30mL at the same rate as the secondary infusion. Run as primary IV, not intended for KVO. Carrier Fluids for Secondary Infusion - 0.9% Sodium Chloride(Linked Group 1) 30 mL, intravenous, As needed, For priming tubing and/or flushing, Starting on Sat12/04/22 at 0004, 0-250 ml/hr to flush line after IV infusions when no maintenance IV ordered. Infuse 30mL at the same rate as the secondary infusion. Run as primary IV, not intended for KVO. cyclobenzaprine (FLEXERIL) tablet 10 mg 10 mg, oral, 3 times daily PRN, muscle spasms, Starting on Sat12/05/22 at 0601 dextrose (D10W) 10% bolus 250 mL(Linked Group 2) 250 mL, intravenous, at 1,000 mL/hr, Administer over 15 Minutes, Every 15 min PRN, blood glucose less than 70 mg/dL and UNABLE to swallow/take PO glucose/juice., Starting on Sat12/04/22 at 1617, After treatment for hypoglycemia, recheck BG followed by treatment every 15 minutes until the BG is greater than 100 mg/dL. Then check BG 1 hour post treatment. If BG is less than 100 mg/dL, repeat Q15 minute BG checks and treatment. Call MD for each episode of hypoglycemia., Indications: hypoglycemic disorder dextrose gel in packet 15 g(Linked Group 2) 15 g, oral, Every 15 min PRN, low blood sugar, blood glucose less than 70 mg/dL, Starting on Sat12/04/22 at 1617, If patient is alert and able to eat/drink, give 15 gm glucose or one juice (4 fluid ounces) NOT ORANGE JUICE. After treatment for hypoglycemia, recheck BG followed by treatment every 15 minutes until the BG is greater than 100 mg/dL. Then check BG 1 hour post-treatment. If BG is less than 100 mg/dL, repeat Q15 minute BG checks and treatment. Call MD for each episode of hypoglycemia., Indications: hypoglycemic disorder glucagon injection 1 mg 1 mg, intramuscular, Every 30 min PRN, low blood sugar, blood glucose less than 70 mg/dL AND no IV access AND unable to take PO glucose/juice., Starting on Sat12/04/22 at 1617, After Glucagon is administered, position patient on side if possible to avoid aspiration. Obtain IV access. Follow glucagon treatment with glucose treatment or IV dextrose. After treatment for hypoglycemia, recheck BG followed by treatment every 15 minutes until the BG is greater than 100 mg/dL. Then check BG 1 hour post treatment. If BG is less than 100 mg/dL, repeat Q15 minute BG checks and treatment. Call MD for each episode of hypoglycemia. Reconstitute 1 mg vial with 1 mL SWFI. Use immediately following reconstitution. lidocaine (LIDODERM) 5 % patch 2 patch 2 patch, transdermal, Administer over 12 Hours, Daily PRN, 2nd line for pain, Starting on Sat12/04/22 at 0018, Do not cover the holes on the top side of the patch., Apply to affected area: other lidocaine (LMX) 4 % cream 1 Application 1 Application, topical, 3 times daily PRN, 2nd line for pain, Starting on Sat12/07/22 at 1453, Apply to affected area: rash, abdomen 0841 (Given - Provider: Matt Gold RN)2334 (Given - Provider: Muriel Szymanski, GLADYS) polyethylene glycol (MIRALAX) packet 17 g 17 g, oral, Daily PRN, constipation, Starting on Sat12/04/22 at 0004, Indications: constipation ramelteon (ROZEREM) tablet 8 mg 8 mg, oral, Nightly PRN, sleep, Starting on Sat12/09/22 at 203, Indications: Sleep-Onset Insomnia 2056 (Given - Provider: Muriel Szymanski, GLADYS) 2052 (Given - Provider: Muriel Szymanski RN) sodium chloride 0.9% flush 0.5-20 mL 0.5-20 mL, intra-catheter, As needed, line care, Starting on Sat12/04/22 at 0004, Flush volume based on line type and size. Flush before and after each use. sodium chloride 0.9% flush 0.5-20 mL(Linked Group 1) 0.5-20 mL, intra-catheter, As needed, line care, Starting on Sat12/04/22 at 0004, Flush volume based on line type and size. Flush before and after each use. Linked Groups Order Group 1: Saline lock IV (CANCELED) Routine, Once (Routine), On Sat12/04/22 at 0005, For 1 occurrence And sodium chloride 0.9% flush 0.5-20 mLJump to med 0.5-20 mL, intra-catheter, Every 8 hours scheduled, First dose on Sat12/04/22 at 0045, Flush volume based on line type and size. And sodium chloride 0.9% flush 0.5-20 mLJump to med 0.5-20 mL, intra-catheter, As needed, line care, Starting on Sat12/04/22 at 0004, Flush volume based on line type and size. Flush before and after each use. And Carrier Fluids for Secondary Infusion - 0.9% Sodium ChlorideJump to med 30 mL, intravenous, As needed, For priming tubing and/or flushing, Starting on Sat12/04/22 at 0004, 0-250 ml/hr to flush line after IV infusions when no maintenance IV ordered. Infuse 30mL at the same rate as the secondary infusion. Run as primary IV, not intended for KVO. Group 2: dextrose gel in packet 15 gJump to med 15 g, oral, Every 15 min PRN, low blood sugar, blood glucose less than 70 mg/dL, Starting on Sat12/04/22 at 1617, If patient is alert and able to eat/drink, give 15 gm glucose or one juice (4 fluid ounces) NOT ORANGE JUICE. After treatment for hypoglycemia, recheck BG followed by treatment every 15 minutes until the BG is greater than 100 mg/dL. Then check BG 1 hour post-treatment. If BG is less than 100 mg/dL, repeat Q15 minute BG checks and treatment. Call MD for each episode of hypoglycemia., Indications: hypoglycemic disorder Or dextrose (D10W) 10% bolus 250 mLJump to med 250 mL, intravenous, at 1,000 mL/hr, Administer over 15 Minutes, Every 15 min PRN, blood glucose less than 70 mg/dL and UNABLE to swallow/take PO glucose/juice., Starting on Sat12/04/22 at 1617, After treatment for hypoglycemia, recheck BG followed by treatment every 15 minutes until the BG is greater than 100 mg/dL. Then check BG 1 hour post treatment. If BG is less than 100 mg/dL, repeat Q15 minute BG checks and treatment. Call MD for each episode of hypoglycemia., Indications: hypoglycemic disorder documented in this encounter Orders Medications Ordered That Roni ht Not Have Been Administered Count Last Ordered Date First Ordered Date insulin glargine (LANTUS, SE MGLEE) 100 unit/mL injection 4 Units 1 12/08/2022 amiodarone in dextrose (NEXT ERONE) 360 mg/200 mL (1.8 mg/mL) infusion (premix) 2 12/06/2022 metoprolol (LOPRESSOR) 5 mg/ 5 mL injection - ADS Override Pull 1 12/06/2022 metoprolol (LOPRESSOR) injection 5 mg 2 11/2022 metoprolol tartrate (LOPRESS OR) immediate release tablet 12.5 mg 2 12/05/2022 Carrier Fluids for Secondary Infusion - 0.9% Sodium Chloride 2 12/04/2022 dextrose (D10W) 10% bolus 250 mL 1 12/05/19 23 dextrose gel in packet 15 g 1 12/04/2022 glucagon injection 1 mg 1 12/04/2022 lidocaine (LIDODERM) 5 % patch 2 patch 1 potassium chloride 40 mEq/52 0 mL in sodium chloride 0.9% (premix) 40 mEq 2 12/04/2022 sodium chloride 0.9% flush 0.5-20 mL 2 05/0 09/2022 ibuprofen (ADVIL,MOTRIN) tablet 400 mg 1 potassium chloride (KLOR-CON ) packet 40 mEq 1 12/03/2022 Lab Orders Without Results Count Last Ordered D ate First Ordered Date POCT GLUCOSE DEVICE 17 12/11/2022 12/05/19 23 HEPATIC FUNCTION PANEL 1 12/05/2022 HEMOGLOBIN A1C 1 12/04/2022 PHOSPHORUS 1 12/04/2022 EKG Orders Without Results Count Last Ordered D ate First Ordered Date ECG 12-LEAD 3 12/11/2022 12/05/2022 Diet Count Last Ordered Date First Orde red Date ADULT DISCHARGE DIET 1 12/11/2022 Nursing Count Last Ordered Date First Orde red Date TELEMETRY MONITORING 1 12/05/2022 WEIGH PATIENT 1 12/04/2022 Consult Count Last Ordered Date First Orde red Date IP CONSULT TO ELECTROPHYSIOLOGY 1 3 IP CONSULT TO NUTRITION SERVICES 1 12/06/19 23 Admission Count Last Ordered Date First Orde red Date ADMIT TO INPATIENT 1 12/03/2022 Transfer Count Last Ordered Date First Orde red Date TRANSFER PATIENT TO NEW UNIT 1 12/04/2022 Discharge Count Last Ordered Date First Orde red Date DISCHARGE PATIENT 1 12/11/2022 CORE MEASURES Count Last Ordered Date First Ord ered Date REASON FOR NO VTE PROPHYLAXIS AT ADMISSION 1 12/04/2022 documented in this encounter Care Teams Sales Director Relationship Specialty Start Date End Date Tio Shea MD PCP - General Family Medicine 05/01/21 documented as of this encounter
--- OUTSIDE RECORDS SUMMARY | 2024-08-01 16:58 | XMS_ITS | Encounter Summary ---
Author Organization [facility] Facility Care Team Providers Care Gold Frame Assembler Name Role Phone Unavailable Primary Care Provider Unavailabl e Encounter Details Date Type Department Care Team (Late st Contact Info) Description 09/12/2006 9:27 AM SUPERVISOR HARVESTING - 09/12/2006 4:00 PM SUPERVISOR HARVESTING Hospital Encounter [facility] Philip Uriostegui Social History Tobacco Use Types Packs/Day Years Used Date Smoking Tobacco: Never Assessed Comments Unknown Sex and Gender Information Value Date Recorded Sex Assigned at Not on file Legal Sex Female 6:47 PM SUPERVISOR HARVESTING Gender Identity Not on file Sexual Orientation Not on file documented as of this encounter Plan of Treatment Not on file documented as of this encounter Visit Diagnoses Not on filedocumented in this encounter
--- OUTSIDE RECORDS SUMMARY | 2024-08-01 16:58 | XMS_ITS | Encounter Summary ---
Author Organization [facility] Address [address] [place] [address] Care Team Providers Care Candle Wicker Name Role Phone Tio Shea MD Primary Care Provider [phone] Encounter Details Date Type Department Care Team (Late st Contact Info) Description 11/19/2022 Orders Only [facility] Cardiology [address] [facility] [address] [facility] [address] [place] [address] Tio Villavicencio MD [address] [facility] [address] [place] [address] Social History Tobacco Use Types Packs/Day Years Used Date Smoking Tobacco: Never Assessed Comments Unknown Sex and Gender Information Value Date Recorded Sex Assigned at Not on file Legal Sex Female 6:47 PM MANAGER GLOBAL Gender Identity Not on file Sexual Orientation Not on file documented as of this encounter Plan of Treatment Not on file documented as of this encounter Procedures Procedure Name Priority Date/Time Associated Diagnosis Comments CARDIOLOGY DOCUMENT SCAN Routine 11/19/2022 documented in this encounter Results * Cardiology Document Scan (11/19/2022) Anatomical Region Laterality Modality Other Barbara Marlow EARLY CHILDHOOD LEAD TEACHER CV CARDIAC SERVICES PROCEDUR ES Final Result documented in this encounter Visit Diagnoses Not on filedocumented in this encounter Care Teams Candle Wicker Relationship Specialty Start Date End Date Tio Shea MD PCP - General Family Medicine 05/01/21 documented as of this encounter
--- OUTSIDE RECORDS SUMMARY | 2024-08-01 16:58 | XMS_ITS | Encounter Summary ---
Author Organization [facility] Address [address] [place] [address] Care Team Providers Care City Assessor Name Role Phone Tio Shea MD Primary Care Provider [phone] Encounter Details Date Type Department Care Team (Late st Contact Info) Description 12/03/2022 Telephone [facility] Cardiology [address] [facility] [address] [place] [address] Tio Villavicencio MD [address] [facility] [address] [place] [address] Social History Tobacco Use Types [...] file Legal Sex Female 6:47 PM SUPERVISOR DRIED YEAST Gender Identity Not on file Sexual Orientation Not on file documented as of this encounter Miscellaneous Notes * Telephone Encounter - Summer Conway RN - 12/03/2022 2:14 PM CDT Spoke with pts spouse, he states that pt has had multiple falls since Saturday. Pt first had an unwitnessed fall on Saturday, then on Saturday pt fell 3 times. Spouse reports that one of the times pt fell he noticed blood around her mouth and she began jerking for about 5 seconds and eyes rolled backin her head. He reports pt is acting appropriately and eating, but she has just been staying in bed. Pt was recently hospitalized and started on eliquis for A-flutter. Spouse reports that pt has hit her head multiple times due to falls. He reports that he spoke with pcp and as advised to call spirits model or go to ER. Due to blood thinners and multiple falls alone advised spouse that pt needs to be evaluated in the ER. He verbalizes understanding and appreciative of return call. * Telephone Encounter - Elsi Reed - 12/03/2022 1:36 PM CDT Pt spouse calling in states hat she can't take more than 2 steps with falling down and assumes she get dizzy Requesting call back to discuss. Contact [phone] documented in this encounter Plan of Treatment Not on file documented as of this encounter Visit Diagnoses Not on filedocumented in this encounter Care Teams City Assessor Relationship Specialty Start Date End Date Tio Shea MD PCP - General Family Medicine 05/01/21 documented as of this encounter
--- OUTSIDE RECORDS SUMMARY | 2024-08-01 16:58 | XMS_ITS | Encounter Summary ---
Author Organization [facility] Facility Care Team Providers Care Circular Sawyer Helper Name Role Phone Unavailable Primary Care Provider Unavailabl e Encounter Details Date Type Department Care Team (Late st Contact Info) Description 11/07/2006 - 11/07/2006 11:59 PM CDT Hospital Encounter [facility] Philip Uriostegui Hearing loss Social History Tobacco Use Types Packs/Day Years Used Date Smoking Tobacco: Never Assessed Comments Unknown Sex and Gender Information Value Date Recorded Sex Assigned at Not on file Legal Sex Female 6:47 PM ELECTORAL OFFICER Gender Identity Not on file Sexual Orientation Not on file documented as of this encounter Plan of Treatment Not on file documented as of this encounter Visit Diagnoses Diagnosis Hearing loss Unspecified hearing loss documented in this encounter
--- OUTSIDE RECORDS SUMMARY | 2024-08-01 16:58 | XMS_ITS | Encounter Summary ---
Author Organization [facility] Address [address] [place] [address] Phone Care Team Providers Care Ticker Wirer Name Role Phone Tio Shea MD Primary Care Provider [phone] [phone] Encounter Details Date Type Department Care Team (Latest Contact Info) Description 05/01/2021 11:00 AM CDT Procedure visit [facility] Otolaryngology [facility] [place] [address] [place] [address] Ileana Celis Au.D. [address] [place] [address] Sensorineural hearing loss (SNHL) of both ears (Primary Dx) Social History Tobacco Use Types Packs/Day Years Used Date Smoking Tobacco: Never Assessed Comments Unknown Sex and Gender Information Value Date Recorded Sex Assigned at Not on file Legal Sex Female 6:47 PM SOFTWARE DEVELOPMENT ANALYST Gender Identity Not on file Sexual Orientation Not on file documented as of this encounter Procedure Notes * Ileana Celis Au.D. - 05/01/2021 11:00 AM CDT Procedures Implant: N22 Ear: Left Processor: N6/brown/number 2 magnet The patient has a right CI as well but she doesn't use the right CI MAPS in Speech Processor: P1 77 no scan asc, adro, WNR, P2 no scan all IP, P3 Beam P4: scan and allIP Current settings:P1, vol 10, sens 12. Never changes settings Audio accessories: No Cell phone: No The patient has an old iPad SERVICES PROVIDED: Evaluation of Auditory Function, Post-op Cochlear Implant (Time: 11:00 - 11:30) and Subsequent Programming PROCEDURES: The patient attended the session with no one. The patient reported: That she has been doing fine with her N6 processor but now wants to upgrade to the N7 since her processor is becoming obsolete. Evaluation Testing was completed to assess the patient's detection of sound and speech understanding and to compare to previous testing. Patient was using program 1, map 77, volume 10 sensitivity 12. Sound field Thresholds 250 731 770 3741 1500 2000 3000 4000 6000 Hz CI 14 24 18 22 14 12 12 22 8 dB HL dB HL CNC Words @ 60 dB SPL CI:LE List: 4 Word Total: 42% Phoneme Total: 63% AzBio Sentences @ 60 dB SPL CI:LE List: 3 Total: 49% AzBio Sentences @ 60 dB SPL +10 SNR Lovely Babble CI:LE List: Total: DNT Aided sound field thresholds were good and indicate good audibility for speech. The patient scored about the same on words and sentences compared to previous tests.. Results of testing were discussedwith the patient. Programming A head check was completed and no redness or irritation was seen at the magnet site. Programming was completed to optimize current map parameters and to ensure optimal settings. See Custom Sound software for details this date. Impedances were not measured due to the patient having an N22 internal device. Patient's preferred map was opened: map 77. T levels were balanced and swept at 50% of the DR and rated as soft.C levels were balanced and swept and rated as medium loud. No changes were made. When live the patient stated that she is satisfied with her current N6 programs. She never changes settings. The programs were unchanged from what she came in with. She will upgrade to the N7. The N7 upgrade order form was completed. An N7 in white will be ordered with a remote control. The patient doesn't have a cell phone and it is uncertain whether her iPad will provide a reliable remote. We tried to download the N7 smart marisa but we were unable to connect. The patient reported that she will likely not use any other accessory. The N7 upgrade form will be sent to Cochlear on her behalf. I have personally spent the time documented above evaluating the auditory function post implant of this patient. This time does not include time spent on cochlear implant programming or reprogramming. The note as documented above reflects my personal service. RECOMMENDATIONS: Return for Annual evaluation or sooner if needed. The patient will return once she gets the N7 processor. documented in this encounter Plan of Treatment Not on file documented as of this encounter Visit Diagnoses Diagnosis Sensorineural hearing loss (SNHL) of both ears- Primary documented in this encounter Care Teams Ticker Wirer Relationship Specialty Start Date End Date Tio Shea MD PCP - General Family Medicine 05/01/21 documented as of this encounter
--- OUTSIDE RECORDS SUMMARY | 2024-08-01 16:58 | XMS_ITS | Encounter Summary ---
Author Organization [facility] Address [address] [place] [address] Care Team Providers Care Waste Removalist Name Role Phone Tio Shea MD Primary Care Provider [phone] [phone] Encounter Details Date Type Department Care Team (Late st Contact Info) Description 11/15/2022 Orders Only [facility] Cardiology [address] [place] [address] Belinda Smith MD [address] [place] [address] Social History Tobacco Use Types Packs/Day Years Used Date Smoking Tobacco: Never Assessed Comments Unknown Sex and Gender Information Value Date Recorded Sex Assigned at Not on file Legal Sex Female 6:47 PM INVESTIGATION OFFICER Gender Identity Not on file Sexual Orientation Not on file documented as of this encounter Plan of Treatment Not on file documented as of this encounter Procedures Procedure Name Priority Date/Time Associated Diagnosis Comments CARDIOLOGY DOCUMENT SCAN Routine 11/15/2022 documented in this encounter Results * Cardiology Document Scan (11/15/2022) Anatomical Region Laterality Modality Other [facility] Katie Smith MD CV CARDIAC SERVICES PRO CEDURES Final Result documented in this encounter Visit Diagnoses Not on filedocumented in this encounter Care Teams Waste Removalist Relationship Specialty Start Date End Date Tio Shea MD PCP - General Family Medicine 05/01/21 documented as of this encounter
--- OUTSIDE RECORDS SUMMARY | 2024-08-01 16:58 | XMS_ITS | Encounter Summary ---
Author Organization [facility] Address [address] [place] [address] Care Team Providers Care Transmission Mechanic Name Role Phone Tio Shea MD Primary Care Provider [phone] [phone] Encounter Details Date Type Department Care Team (Late st Contact Info) Description 11/19/2022 Orders Only [facility] Health Information Management [address] [place] [address] Scanning, Provider Social History Tobacco Use Types [...] on file Legal Sex Female 6:47 PM BATCH OR CONTINUOUS STILL OPERATOR Gender Identity Not on file Sexual Orientation Not on file documented as of this encounter Plan of Treatment Not on file documented as of this encounter Procedures Procedure Name Priority Date/Time Associated Diagnosis Comments SCAN - LABS 11/19/2022 documented in this encounter Results * SCAN - LABS (11/19/2022) us Provider Scanning Final Result documented in this encounter Visit Diagnoses Not on filedocumented in this encounter Care Teams Transmission Mechanic Relationship Specialty Start Date End Date Tio Shea MD PCP - General Family Medicine 05/01/21 documented as of this encounter
--- OUTSIDE RECORDS SUMMARY | 2024-08-01 16:58 | XMS_ITS | Encounter Summary ---
Author Organization [facility] Facility Care Team Providers Care Trolley Collector Name Role Phone Unavailable Primary Care Provider Unavailabl e Encounter Details Date Type Department Care Team (Late st Contact Info) Description 09/23/2006 6:15 AM ELECTRONIC SEMICONDUCTOR PROCESSOR - 09/24/2006 9:35 AM ELECTRONIC SEMICONDUCTOR PROCESSOR Hospital Encounter [facility] Philip Uriostegui Social History Tobacco Use Types Packs/Day Years Used Date Smoking Tobacco: Never Assessed Comments Unknown Sex and Gender Information Value Date Recorded Sex Assigned at Not on file Legal Sex Female 6:47 PM ELECTRONIC SEMICONDUCTOR PROCESSOR Gender Identity Not on file Sexual Orientation Not on file documented as of this encounter Plan of Treatment Not on file documented as of this encounter Visit Diagnoses Not on filedocumented in this encounter
--- OUTSIDE RECORDS SUMMARY | 2024-08-01 16:58 | XMS_ITS | Encounter Summary ---
Author Organization [facility] Address [address] [place] [address] Phone Care Team Providers Care Cooker Sulfate Name Role Phone Tio Shea MD Primary Care Provider [phone] [phone] Reason for Visit * Audiology (Routine) - Closed Specialty Diagnoses / Procedures Referred By Contac t Referred To Contact Audiology Diagnoses Sensorineural hearing loss, bilateral Procedures Evaluation, cochlear implant programming and auditory rehabilitation per [facility] adult cochlear implant protocol Nestor Douglass MD Phone: tel: fax: [facility] [address] [place] [address] [address] [place] [address] [place] [address] Phone: tel: fax: Referral ID Status Reason Start Date Expiration Date Visits Re quested Visits Authorized [id number] Closed 05/29/2021 06/28/2022 12 12 Encounter Details Date Type Department Care Team (Latest Contact Info) Description 05/30/2021 2:30 PM CDT Procedure visit [facility] [address] [place] [address] [address] [place] [address] [place] [address] Ileana Celis, Amparo [address] [place] [address] Sensorineural hearing loss, bilateral (Primary Dx) Social History Tobacco Use Types Packs/Day Years Used Date Smoking Tobacco: Never Assessed Comments Unknown Sex and Gender Information Value Date Recorded Sex Assigned at Not on file Legal Sex 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 - 05/30/2021 2:30 PM CDT Procedures Procedures Implant: N22 Ear: Left Processor: N6/brown/number 2 magnet Processor: N7/white/number 2 but need to change to number 1, have ordered ?? The patient has a right CI as well but she doesn't use the right CI ?? MAPS in N6 Speech Processor: P1 77 no scan asc, adro, WNR, P2 no scan all IP, P3 Beam P4: scan and all IP Maps in N7 Speech Porcessor: P1 81 no scan asc, adro, WNR, P2 81no scan, asc, acro, SNR NR and WNR,P3 80 Cs up 2, scan and all IP ?? Current settings:P1, vol 7, sens 12. Audio accessories: No Cell phone: No The patient has an iPad: Did connect to N7 and can use Smart Marisa ? SERVICES PROVIDED: Programming of N7 processor. Procedures: The patient attended the session with no one. The patient reported: Programming ?? A head check was completed and her head looked a bit red. The N7 number 2 magnet stuck pretty tight. Ordered her a number 1 to be sent to her home ?? Programming was completed to optimize current map parameters and to ensure optimal settings. See Custom Sound software for details this date. The correct N22 cable coil was not sent. She had to use our loaner. Two white 6 cm cable coils wereordered and will be sent to her home. She will return mine. ?? Impedances were not measured due to the patient having an N22 internal device. ? Patient's preferred map was opened: map 77. This map was converted to the N7 and was map 81. N6 map78 was converted to map 80. This map was in P4 with scan which she rarely used. However, we wanted to revisit use of SCAN. Cs were swept and all were comfortable. They were balanced at last visit about a month ago. Map 80 with scan has Cs raised by 2 for listening in noise which she liked with the N6. ?When live the patient stated that she thought the N7 processor sounded good with volume on 7 and sens to 12. She did not have to use the volume on 10 as she did with the N6. The operation of the [id number] was discussed. She liked the small curved earhook. Kanchan protectors were shown to her. The 310 remote was paired to her processor. We attempted to pair her processor with the tablet and it paired and we were able to download the Smart marisa. She was show how to operate it. We discussed forward focus. She wants both the 310 remote and the Smart marisa. She stated she will not use the mini kanchan. I could see if we have any TV streamersto give to her. ?? We discussed possibly getting a caption phone at home. We also discussed the possibility of her getting a cell phone. I will send her the compatibility info. ? The note as documented above reflects my personal service. ? RECOMMENDATIONS: Return in 3 weeks to check performance with N7 Obtain correct cable/coil form cochlear. Obtain number 1 magnet from [employer]. Send phone compatibility info to Donita. documented in this encounter Plan of Treatment Not on file documented as of this encounter Visit Diagnoses Diagnosis Sensorineural hearing loss, bilateral- Primary documented in this encounter Orders Audiology Count Last Ordered Date First Orde red Date EVALUATION, COCHLEAR IMPLANT PROGRAMMING AND AUDITORY REHABILITATION 1 05/30/2021 documented in this encounter Care Teams Cooker Sulfate Relationship Specialty Start Date End Date Tio Shea MD PCP - General Family Medicine 05/01/21 documented as of this encounter
--- OUTSIDE RECORDS SUMMARY | 2024-08-01 16:58 | XMS_ITS | Encounter Summary ---
Author Organization 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 Gender Identity Not on file Sexual Orientation Not on file documented as of this encounter Plan of Treatment Not on file documented as of this encounter Procedures Procedure Name Priority Date/Time Associated Diagnosis Comments SCAN - RADIOLOGY/IMAGING 11/16/2022 documented in this encounter Results * SCAN - RADIOLOGY/IMAGING (11/16/2022) Anatomical Region Laterality Modality Other us Provider Scanning Final Result documented in this encounter Visit Diagnoses Not on filedocumented in this encounter Care Teams Quenching Machine Operator Relationship Specialty Start Date End Date Tio Shea MD PCP - General Family Medicine 05/01/21 documented as of this encounter
== END 2024-07-25 15:34 | disposition home or self-care (01) ==
PROVIDERS: Emergency Provider Emergency Medicine; PCP Family Medicine
DX: R53.1 Weakness (principal); B97.4 Respiratory syncytial virus as the cause of diseases classified elsewhere; J02.9 Acute pharyngitis, unspecified; E87.6 Hypokalemia; I10 Essential (primary) hypertension; E11.9 Type 2 diabetes mellitus without complications; K21.9 Gastro-esophageal reflux disease without esophagitis; E78.2 Mixed hyperlipidemia; E66.9 Obesity, unspecified; Z68.30 Body mass index [BMI] 30.0-30.9, adult; Z20.822 Contact with and (suspected) exposure to COVID-19
CPT/HCPCS: 36415; 71046; 80053; 81001; 83690; 85025; 87086; 87637; 96361; 96374; 99284; A9270; J2405; J7030

== ENCOUNTER 2024-08-12 11:00 | Outpatient (RCR) | payer MEDICARE, SELFPAY ==
--- NOTE | 2024-06-03 16:24 | OPREHPOC ---
Outpatient Therapy Plan of Care This is a Multidisciplinary Plan of Care that may contain components documented by all disciplines (PT, OT, and ST.) PT Problem 1 PT Problem #1 Knowledge Deficit PT Goal 1 Goal / Goal Update Pt to be IND with issued HEP Target Visit 10 PT Problem 2 PT Problem #2 Impaired Balance PT Goal 1 Goal / Goal Update 1. Pt to demonstrate a 10s single leg stance. 2. Pt to ambulate for 2 mins without crossing midline. Target Visit 10 PT Problem 3 PT Problem #3 Impaired Gait PT Goal 1 Goal / Goal Update 1. Pt to be able to walk for 15 mins for exercise. PT Problem 4 PT Problem #4 Impaired Endurance PT Goal 1 Goal / Goal Update 1. Pt to be able to participate for a full dance/ exercise class Target Visit 10
--- NOTE | 2024-06-03 16:24 | PTOPEVAL1 ---
Assessment and note entered by Oxana Cast, PT, DPT Evaluation Information Assessment Status Evaluation Diagnosis ataxia ICD-10 Condition Codes (PT) Repeated falls R29.6,Difficulty Walking R26.2,R26. 9,Weakness R53.1 Subjective Information Pt reports decreased endurance and balance. She states she cannot walk in a straight line without holding onto something. She also states she like to do a dance class for exercise but can only tolerate about 15 minutes of exercise. States she veers to the left when walking. Pt reports a fall with head contact 4 years ago onto concrete, she reports no residual deficits d/ t this. Reported Pain Level Pain Score 0: Self Report Assessment PT Clinical Summary Pt presents to therapy today for her initial evaluation with a diagnosis of ataxia. Today she demonstrates decreased foot clearance rhiannon, increased lateral pelvic motion during ambulation, and a slight veering gait pattern. She demonstrates good LE strength with a slight decrease in ankle and lateral hip strength. Skilled therapy services are indicated for balance challenges, endurance training, gait training, and to improve functional mobility. Plan of Care Interventions Electrical Stimulation,Gait Training,Hot Pack/Cold Pack,Manual Therapy,Neuro Re-education,Patient/ Caregiver Educati,Therapeutic Activities, Therapeutic Exercise PT Services Indicated Yes Treatment Frequency and 2x/wk for 8 visits Duration These treatments will address the objective and functional deficits as defined above. The patient will be advanced safely and appropriately in order for the patient to progress towards his/her prior level of function. Additional exercises will be introduced and as well as a comprehensive home exercise program upon discharge, if needed, ?to ensure carryover of functional gains achieved in the clinic. This treatment plan has been reviewed and agreement upon by the patient.
--- NOTE | 2024-06-18 12:34 | PCPTNOTE ---
Patient cancel per patient request.
--- NOTE | 2024-06-25 13:34 | OPREHPOC ---
Outpatient Therapy Plan of Care This is a Multidisciplinary Plan of Care that may contain components documented by all disciplines (PT, OT, and ST.) PT Problem 1 PT Problem #1 Knowledge Deficit PT Goal 1 Goal / Goal Update Pt to be IND with issued HEP Target Visit 10 Progress Met PT Problem 2 PT Problem #2 Impaired Balance PT Goal 1 Goal / Goal Update 1. Pt to demonstrate a 10s single leg stance. 2. Pt to ambulate for 2 mins without crossing midline. 06/25/24: 1-2. improving Target Visit 10 Progress Partially Met PT Problem 3 PT Problem #3 Impaired Gait PT Goal 1 Goal / Goal Update 1. Pt to be able to walk for 15 mins for exercise. 06/25/24: 1. not attempted yet PT Problem 4 PT Problem #4 Impaired Endurance PT Goal 1 Goal / Goal Update 1. Pt to be able to participate for a full dance/ exercise class 06/25/24: 1. hasnt attempted Target Visit 10
--- NOTE | 2024-06-25 13:34 | PTOPPROG ---
Assessment and note entered by Oxana Cast, PT, DPT Evaluation Information Assessment Status Progress Diagnosis ataxia ICD-10 Condition Codes (PT) Repeated falls R29.6,Difficulty Walking R26.2,R26. 9,Weakness R53.1 Subjective Information Pt states she feels like she is doing a little bit better with her balance. Assessment PT Clinical Summary Pt presents to therapy today for her progress report following 8 visits of skilled therapy to treat her ataxia. Today she continues to demonstrate decreased foot clearance rhiannon and a slight veering gait pattern. She also continues to demonstrates limited ankle ROM and strength. Her static balance has improved but her dynamic balance and gait pattern is still decreased from expected. Continuation of skilled therapy services are indicated for balance challenges, endurance training, gait training, and to improve functional mobility. Plan of Care Interventions Electrical Stimulation,Gait Training,Hot Pack/Cold Pack,Manual Therapy,Neuro Re-education,Patient/ Caregiver Educati,Therapeutic Activities, Therapeutic Exercise PT Services Indicated Yes Treatment Frequency and 2x/wk for 10 visits Duration These treatments will address the objective and functional deficits as defined above. The patient will be advanced safely and appropriately in order for the patient to progress towards his/her prior level of function. Additional exercises will be introduced and as well as a comprehensive home exercise program upon discharge, if needed, ?to ensure carryover of functional gains achieved in the clinic. This treatment plan has been reviewed and agreement upon by the patient.
--- NOTE | 2024-07-23 12:49 | PCPTNOTE ---
Patient arrived to therapy stating she was ill with a cold and diarrhea. Patient decided it was best to cancel her session this date due to her being too ill to participate.
--- NOTE | 2024-07-30 08:11 | PCPTNOTE ---
Patients scheduled appointment 07/27/24 was cancelled due to the treating therapist being out of the office d/t illness.
--- NOTE | 2024-08-03 09:50 | PCPTNOTE ---
Patient called & cancelled scheduled appointment this date due to still being ill. She has been rescheduled for a later date.
--- NOTE | 2024-08-12 11:57 | OPREHPOC ---
Outpatient Therapy Plan of Care This is a Multidisciplinary Plan of Care that may contain components documented by all disciplines (PT, OT, and ST.) PT Problem 1 PT Problem #1 Knowledge Deficit PT Goal 1 Goal / Goal Update Pt to be IND with issued HEP Target Visit 10 Progress Met PT Problem 2 PT Problem #2 Impaired Balance PT Goal 1 Goal / Goal Update 1. Pt to demonstrate a 10s single leg stance. 2. Pt to ambulate for 2 mins without crossing midline. 06/25/24: 1-2. improving 08/12/24: 1. progressing 2. met Target Visit 10 Progress Partially Met PT Problem 3 PT Problem #3 Impaired Gait PT Goal 1 Goal / Goal Update 1. Pt to be able to walk for 15 mins for exercise. 06/25/24: 1. not attempted yet 08/12/24: 1. met Progress Met PT Problem 4 PT Problem #4 Impaired Endurance PT Goal 1 Goal / Goal Update 1. Pt to be able to participate for a full dance/ exercise class 06/25/24: 1. hasnt attempted 08/12/24: 1. hasnt attempted Target Visit 10 Progress Partially Met
--- NOTE | 2024-08-12 11:57 | PTOPDC ---
Assessment and note entered by Oxana Cast, PT, DPT Evaluation Information Assessment Status Discharge Diagnosis ataxia ICD-10 Condition Codes (PT) Repeated falls R29.6,Difficulty Walking R26.2, Abnormalities of gait and mobility R26.9,Weakness R53.1 Subjective Information Pt returns to therapy today after 3 weeks of no therapy d/t RSV. She states she was nauseous and had minimal appetite, she feels very weak d/t this . She does not feel like she is walking side ways like she used to. Pt states she feels more comfortable walking than she did before and is now encouraged to do so. Reported Pain Level Pain Score 0: Self Report Assessment PT Clinical Summary Pt presents to therapy today for her progress report following 14 visits of skilled therapy to treat her ataxia. She has progressed well towards her therapy goals and states she feels like she has a good exercise routine in place. Her balance with functional tasks has improved. Pt no longer requires skilled therapy and will be discharged at this time. Plan of Care PT Services Indicated No
== END 2024-08-12 13:01 | disposition home or self-care (01) ==
LOC: ANHGOSHPT 11:00
PROVIDERS: PCP Nurse Practitioner Family; Visit Provider Family Medicine
DX: S09.90XD Unspecified injury of head, subsequent encounter (principal); R27.0 Ataxia, unspecified
CPT/HCPCS: 97110; 97112; 97116; 97161; 97530; 97750

== ENCOUNTER 2024-10-01 09:40 | Outpatient (CLI) | payer MEDICARE, SELFPAY ==
[2024-10-01 15:23] LABS: Anion Gap 12 mmol/L (4-12); Blood Urea Nitrogen 21 mg/dL (7-17); Carbon Dioxide 29 mmol/L (22-30); Chloride 102 mmol/L (98-107); Estimated Glomerular Filt Rate 28; Glucose 140 mg/dL (65-110); Potassium 4.2 mmol/L (3.4-5.0); Sodium 143 mmol/L (137-145)
== END 2024-10-01 09:41 | disposition home or self-care (01) ==
LOC: ANHGOSHLAB 09:42
PROVIDERS: PCP Family Medicine; Visit Provider Nurse Practitioner Family
DX: E87.6 Hypokalemia (principal)
CPT/HCPCS: 36415; 80048

== ENCOUNTER 2024-11-11 07:52 | Outpatient (CLI) | payer MEDICARE, SELFPAY ==
--- OUTSIDE RECORDS SUMMARY | 2024-11-11 08:00 | XMS_ITS | Referral Summary ---
Author Organization [facility] Address [address] [place] [address] Care Team Providers Care Warehouse Shipper Name Role Phone Tio Shea MD Primary Care Provider [phone] [phone] Allergies No known active allergies Medications omeprazole (PriLOSEC) 20 mg capsule Take 1 capsule (20 mg total) by mouth daily 11/20/19 23 Active amLODIPine (NORVASC) 10 mg tablet Take 1 tablet (10 mg total) by mouth every morning 12/22/19 23 Active metoprolol XL (TOPROL-XL) 50 mg extended release tabletIndication s:Paroxysmal atrial fibrillation (HCC) Take 1 tablet (50 mg total) by mouth daily 90 tablet 3 12/27/19 23 Active amiodarone (PACERONE) 200 mg tabletIndication s:Paroxysmal atrial fibrillation (HCC) Take 1 tablet (200 mg total) by mouth daily 30 tablet 03/14/20 23 Active allopurinoL (ZYLOPRIM) 100 mg tablet Take 1 tablet (100 mg total) by mouth daily 03/08/20 23 Active cholecalciferol (Vitamin D3) 2000 unit tablet Act rajni magnesium gluconate 200 mg tabletIndication s:hypomagnesemia 1 [...] Will gradually taper up 07/17/20 24 Active Eliquis 5 mg tablet Take 1 tablet (5 mg total) by mouth every 12 (twelve) hours 180 tablet 2 08/18/19 25 Active Active Problems Problem Noted Date Diagnosed Date At risk for amiodarone toxicity with terminal computer operator u se 01/29/2023 Chronic anticoagulation 01/29/2023 Hypertension associated with diabetes 01/29/2023 Mixed diabetic hyperlipidemi a associated with type 2 diabetes mellitus 01/29/2023 Localized edema 01/29/2023 Atrial fibrillation 12/11/2022 Paroxysmal atrial flutter 12/11/2022 Leukocytosis 12/11/2022 Type 2 diabetes mellitus 12/11/2022 Syncope and collapse 12/03/2022 Sensorineural hearing loss (SNHL) of both ears 0 03/28/2015 Resolved Problems Problem Noted Date Diagnosed Date Resolved Date Hypokalemia 12/11/2022 12/11/2022 Prolonged Q-T interval on ECG 12/11/2022 12/11/2022 KARINA (acute kidney injury) 12/11/2022 Hypophosphatemia 12/11/2022 12/11/2022 Metabolic alkalosis 12/11/2022 12/12/19 Urinary tract infection 12/11/2022 050 04/2023 Social History Tobacco Use Types Packs/Day Years [...] on file Legal Sex Female 6:47 PM JOY OPERATOR Gender Identity Not on file Sexual Orientation Not on file Last Filed Vital Signs Vital Sign Reading Time Taken Comments Blood Pressure 136/74 07/23/2024 2:44 PM JOY OPERATOR Pulse 84 07/23/2024 2:44 PM JOY OPERATOR Temperature 36.8 C (98.3 F) 12/11/2022 4:09 AM CDT Respiratory Rate 18 12/11/2022 11:30 AM CDT Oxygen Saturation 93% 07/23/2024 2:44 PM JOY OPERATOR Inhaled Oxygen Concentration - - Weight 68 kg (150 lb) 07/23/2024 2:44 PM JOY OPERATOR Height 152.4 cm (5') 07/23/2024 2:44 PM JOY OPERATOR Body Mass Index 29.29 07/23/2024 2:44 PM JOY OPERATOR Plan of Treatment Not on file Procedures Procedure Name Priority Date/Time Associated Diagnosis Comments COMPREHENSIVE METABOLIC PANEL Routine 01/24/2024 1:29 PM CDT Paroxysmal atrial flutter (HCC) Chronic anticoagulation At risk for amiodarone toxicity with senior living use LIPID PANEL Routine 09/09/2023 10:30 AM JOY OPERATOR HEMOGLOBIN A1C Routine 12/04/2022 6:04 AM CDT from Last 3 Months or Most Recently Relevant to Health Maintenance Results * (ABNORMAL) Comprehensive metabolic panel (01/24/2024 1:29 PM CDT) Pathologist [facility] Glucose 102(H) 70 - 99 mg/dL [facility] [...] - 01/25/2024 7:11 AM CDT Performed at: [address] [id number] Cigar Wrapper Tender Automatic: Dominic Alicea PhD, Phone: [phone] [facility] Katie Smith MD LAB BLOOD ORDERABLES nal [facility] * (ABNORMAL) Lipid panel (09/09/2023 10:30 AM JOY OPERATOR) Pathologist [facility] Cholesterol 146 100 - 199 mg/dL [facility] - 01 Triglycerides 153(H) 0 - 149 mg/dL [facility] - 01 HDL Cholesterol 42 >39 mg/dL [facility] - 01 VLDL 27 5 - 40 mg/dL [facility] - 01 LDL, calculated 77 0 - 99 mg/dL [facility] - 01 09/09/2023 10:3 0 AM JOY OPERATOR 09/09/2023 Narrative [facility] - 09/10/2023 2:08 AM JOY OPERATOR Performed at: [address] [id number] Cigar Wrapper Tender Automatic: Dominic Alicea PhD, Phone: [phone] Specimen Comment: A courtesy copy of this report has been sent to [phone] Kurtis Abdalla MD LAB BLOOD ORDERABLES Fin al Result [facility] - 01 * (ABNORMAL) Hemoglobin A1c (12/04/2022 6:04 AM CDT) Hgb A1C 7.3(H) 4.0 - 5.6 % [facility] Estimated Average Glucose 163 mg/dL [facility] Comment: The ADA recommends reporting an estimated Average Glucose (eAG) with all Hemoglobin A1c results using the equation derived from a study of 507 normal and diabetic adults. Minority populations were underrepresented and children were not included. (Diabetes Care 2020; 43(S1): S66-S76). The eAG is not equivalent to a fasting glucose. Blood 12/04/2022 6:04 AM CDT 12/04/2022 6:26 AM CDT us Bolivar Mclaughlin MD LAB BLOOD ORDERABLES Final Re sult Performing Organization Address [facility] Co de Phone Number [facility] [address] [facility] Department [place] [address] from Last 3 Months or Most Recently Relevant to Health Maintenance Insurance MEDICARE COMMERCIAL GENERIC MEDICARE Member Subscriber Plan / Payer (Ef fective 2019-Present) Name:Stella Carroll Member ID:[id number] Relation to Subscriber:Self Name:Stella Carroll Subscriber ID:[id number] Payer ID:[id number] Group ID:Not on file Type:MEDICARE TRADITIONAL Address: [place] [phone] COMMERCIAL [facility] MEDICARE COMMERCIAL GENERIC Advance Directives For more information, please contact: [phone] * Full Code (Latest Code Status on File) Date Activated Date Inactivated Comments 12/04/2022 12:05 AM 12/11/2022 8:28 PM Care Teams Warehouse Shipper Relationship Specialty Start Date End Date Tio Shea MD PCP - General Family Medicine 05/01/21
--- OUTSIDE RECORDS SUMMARY | 2024-11-11 08:00 | XMS_ITS | Clinical Summary ---
Author Organization [facility] Address [address] [place] [address] Care Team Providers Care Scuba Diving Instructor Name Role Phone Tio Shea MD Primary Care Provider [phone] Allergies No known active allergies Medications omeprazole [...] Date At risk for amiodarone toxicity with long winder tender u se 01/29/2023 Chronic anticoagulation 01/29/2023 Hypertension [...] 23 Urinary tract infection 12/11/2022 05/0 04/2023 Medical History Medical History Date Comments Hypertension Hyperlipidemia Atrial flutter (HCC) Syncope Family History Medical History Relation [...] on file Legal Sex Female 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 Gender Identity Not on file Sexual Orientation Not on file Obstetrics History Last Filed Vital Signs Vital Sign Reading Time Taken Comments Blood Pressure 136/74 07/23/2024 2:44 PM SATELLITE TV TECHNICIAN INSTALLER Pulse 84 07/23/2024 2:44 PM SATELLITE TV TECHNICIAN INSTALLER Temperature 36.8 C (98.3 F) 12/11/2022 4:09 AM CDT Respiratory Rate 18 12/11/2022 11:30 AM CDT Oxygen Saturation 93% 07/23/2024 2:44 PM SATELLITE TV TECHNICIAN INSTALLER Inhaled Oxygen Concentration - - Weight 68 kg (150 lb) 07/23/2024 2:44 PM SATELLITE TV TECHNICIAN INSTALLER Height 152.4 cm (5') 07/23/2024 2:44 PM SATELLITE TV TECHNICIAN INSTALLER Body Mass Index 29.29 07/23/2024 2:44 PM SATELLITE TV TECHNICIAN INSTALLER Plan of Treatment Health Maintenance Due Date Last Done Comments Albumin Creatinine Ratio, Urine 1955 Breast Cancer Screening-Mammogram 1955 Colon Cancer Screening-Colonoscopy 1955 Depression Screening 1955 Hepatitis C Screening 1955 Osteoporosis Screening-Bone Density Scan 1955 Dilated Eye Exam 1955 Foot Exam 1955 Hepatitis B Screening 1971 Pneumococcal vaccine 65+ (1 of 2 - PCV) 1972 Zoster Vaccine (1 of 2) 2003 Well [...] anticoagulation At risk for amiodarone toxicity with long winder tender use LIPID PANEL Routine 09/09/2023 10:30 AM SATELLITE TV TECHNICIAN INSTALLER HEMOGLOBIN A1C Routine 12/04/2022 6:04 AM CDT [...] - 01/25/2024 7:11 AM CDT Performed at: [address] [place] [id number] Chemical Maker: Dominic Alicea PhD, Phone: [phone] Belinda Smith MD LAB BLOOD ORDERABLES Fi nal Result Performing Organization Address [facility] Co de Phone Number [facility] - * (ABNORMAL) Lipid panel (09/09/2023 10:30 AM SATELLITE TV TECHNICIAN INSTALLER) Pathologist [facility] Cholesterol 146 100 - 199 mg/dL [facility] - 01 Triglycerides 153(H) 0 - 149 mg/dL [facility] - 01 HDL Cholesterol 42 >39 mg/dL [facility] - 01 VLDL 27 5 - 40 mg/dL [facility] - 01 LDL, calculated 77 0 - 99 mg/dL [facility] - 01 09/09/2023 10:3 0 AM SATELLITE TV TECHNICIAN INSTALLER 09/09/2023 Narrative [facility] - 09/10/2023 2:08 AM SATELLITE TV TECHNICIAN INSTALLER Performed at: [facility] [id number] Chemical Maker: Dominic Alicea PhD, Phone: [phone] Specimen Comment: A courtesy copy of this report has been sent to [phone] Kurtis Abdalla MD LAB BLOOD ORDERABLES Fin al Result Performing Organization Address [facility] Co de Phone Number [facility] - * (ABNORMAL) Hemoglobin A1c (12/04/2022 6:04 AM CDT) Pathologist [facility] Hgb A1C 7.3(H) 4.0 - 5.6 % [...] MD LAB BLOOD ORDERABLES Final Re sult [facility] One [facility] Department [place] [address] from Last 3 Months or Most Recently Relevant to Health Maintenance Insurance MEDICARE COMMERCIAL [facility] MEDICARE COMMERCIAL GENERIC MEDICARE COMMERCIAL GENERIC Advance Directives For more information, please contact: [phone] * Full Code (Latest Code Status on File) Date Activated Date Inactivated Comments 12/04/2022 12:05 AM 12/11/2022 8:28 PM Care Teams Scuba Diving Instructor Relationship Specialty Start Date End Date Tio Shea MD PCP - General Family Medicine 05/01/21
[2024-11-11 13:36] LABS: Alanine Aminotransferase 70 U/L (6-35); Albumin Level 4.2 g/dL (3.5-5.1); Alkaline Phosphatase 106 U/L (38-126); Anion Gap 10 mmol/L (4-12); Aspartate Amino Transferase 61 U/L (14-36); Bilirubin,Total 0.5 mg/dL (0.2-1.3); Blood Urea Nitrogen 22 mg/dL (7-17); Calcium 10.2 mg/dL (8.4-10.2); Carbon Dioxide 27 mmol/L (22-30); Chloride 104 mmol/L (98-107); Cholesterol 145 mg/dL (0-200); Estimated Glomerular Filt Rate 28; Glucose 90 mg/dL (65-110); HDL Direct 42 mg/dL; Potassium 3.9 mmol/L (3.4-5.0); Sodium 141 mmol/L (137-145); Triglycerides 171 mg/dL (<150); Uric Acid 2.5 mg/dL (2.5-7.5)
[2024-11-11 13:47] LABS: LDL Cholesterol Direct 64 mg/dL
[2024-11-11 13:55] LABS: Creatinine Urine 53.9 mg/dL
[2024-11-11 14:22] LABS: Hemoglobin A1C 5.6 % (<5.7)
[2024-11-11 14:23] LABS: MALB Creatinine Ratio 658.1 mg/g (0-30); Microalbumin Urine Random 354.7 mg/L (0-16.7)
[2024-11-11 14:41] LABS: Vitamin B12 > 1000.0 pg/mL (239-931)
== END 2024-11-11 07:53 | disposition home or self-care (01) ==
LOC: ANHGOSHLAB 07:56
PROVIDERS: PCP Family Medicine; Visit Provider Nurse Practitioner Family
DX: E55.9 Vitamin D deficiency, unspecified (principal); I48.92 Unspecified atrial flutter; I50.30 Unspecified diastolic (congestive) heart failure; E11.69 Type 2 diabetes mellitus with other specified complication; E66.9 Obesity, unspecified; E78.2 Mixed hyperlipidemia; E87.6 Hypokalemia
CPT/HCPCS: 36415; 80053; 80061; 82043; 82306; 82607; 83036; 84443; 84550

== ENCOUNTER 2025-02-24 09:21 | Inpatient (IN) | payer MEDICARE, SELFPAY ==
[2025-02-24] VITALS (34 sets, daily range): BP systolic 101–145; BP diastolic 53–98; PULSE 75–95; RESP 14–30; TEMP 36.4–37.4; O2SAT 84–98; BMI 28.4
--- NOTE | 2025-02-24 | ECHO_ITS ---
Patient Info Name: Stella Carroll Age: 69 years : 1955 Gender: Female Ht: 60 in Wt: 157 lbs BSA: 1.76 m2 HR: 83 bpm BP: 120 / 67 mmHg Technical Quality: Good Exam Date: 02/24/2025 2:11 PM Patient Status: I Admit Date: 02/24/2025 Exam Type: CA echo limited Complete two-dimensional, color flow and Doppler transthoracic echocardiogram is performed. Staff Referring Physician: Savana Salvador Spectacle Truer: Kelly Stanford Attending Provider: Severo Arguelles MD Summary 1. Complete two-dimensional, color flow and Doppler transthoracic echocardiogram is performed. 2. Left ventricular chamber dimension is normal. 3. Left ventricular systolic function is normal, estimated at 60-65. 4. The left ventricular diastolic function is indeterminate as it was not assessed. 5. Left atrial chamber dimension is mildly enlarged. 6. There is mild mitral valve regurgitation. 7. There is mild to moderate tricuspid valve regurgitation. 8. Severe pulmonary hypertension, estimated pulmonary arterial systolic pressure is 67 mmHg. 9. There is trivial pericardial effusion. Left Ventricle Left ventricular chamber dimension is normal. Left ventricular systolic function is normal, estimated at 60-65. The left ventricular diastolic function is indeterminate as it was not assessed. Right Ventricle Right ventricular chamber dimension is normal. Right ventricular systolic function is normal. Left Atria Left atrial chamber dimension is mildly enlarged. Right Atria Right atrial chamber dimension is normal. Aortic Valve The aortic valve is not well visualized. Cannot determine number of aortic valve leaflets. There is mild aortic valve sclerosis. There is no aortic valve stenosis. There is no aortic valve regurgitation. Pulmonic Valve There is no pulmonic regurgitation. Mitral Valve There is no mitral valve stenosis. There is mild mitral valve regurgitation. Tricuspid Valve There is mild to moderate tricuspid valve regurgitation. Severe pulmonary hypertension, estimated pulmonary arterial systolic pressure is 67 mmHg. Pericardium/Pleural There is trivial pericardial effusion. Inferior Vena Cava Normal inferior vena cava with >50% collapse upon inspiration consistent with normal right atrial pressure, 5 mmHg. Aorta The aortic root size at the sinus of Valsalva is normal. Left Ventricular Outflow Tract Name Value Normal LVOT 2D LVOT Diameter 1.9 cm Tricuspid Valve Name Value Normal TV Regurgitation Doppler TR Peak Velocity 394 cm/s TR Peak Gradient 62 mmHg Estimated PAP/RSVP RA Pressure 5 mmHg <=5 PA Systolic Pressure 67 mmHg <36 RV Systolic Pressure 67 mmHg <36 Aortic Valve Name Value Normal AV Regurgitation 2D LVOT Area 2.7 cm2 Ventricles Name Value Normal LV Dimensions 2D/MM IVS Diastolic Thickness (2D) 0.8 cm 0.6-1.0 LVID Diastole (2D) 4.5 cm 3.8-5.2 LVIW Diastolic Thickness (2D) 0.9 cm 0.6-0.9 LVID Systole (2D) 2.8 cm 2.2-3.5 LVOT Diameter 1.9 cm LV Mass (2D Cubed) 123.77 g 67.00-162.00 LV Mass Index (2D Cubed) 70 g/m2 43-95 Relative Wall Thickness (2D) 0.39 <=0.42 LV Fractional Shortening/Ejection Fraction 2D/MM LV Fractional Shortening (2D) 39 % 27-45 LV EF (2D Teichholz) 70 % LV Diastolic Volume (4C MOD) 52 ml LV EF (4C MOD) 62 % LV Diastolic Volume (2C MOD) 54 ml LV EF (2C MOD) 57 % LV Diastolic Volume (BP MOD) 54 ml 46-106 LV Diastolic Volume Index (BP MOD) 31 ml/m2 29-61 LV Systolic Volume (BP MOD) 22 ml 14-42 LV Systolic Volume Index (BP MOD) 13 ml/m2 8-24 LV EF (BP MOD) 59 % 54-74 LV Diastolic Length (4C) 7.2 cm LV Systolic Length (4C) 5.3 cm LV Stroke Volume (4C MOD) 32 ml Report Signatures
--- NOTE | ~2025-02-24 | CT_ITS ---
EXAM: CTA chest abdomen pelvis - 02/24/2025 10:50 CDT History: 69 years old Female with CHEST PAIN, ABDOMINAL PAIN Technique A CT angiogram of the chest, abdomen, and pelvis was performed from the thoracic inlet to the ischial tuberosities during dynamic intravenous contrast administration. 100 cc of Optiray 350 were used for the study. Automatic exposure control was used for this study. Multiple axial, coronal and sagittal reconstructions were created from the initial axial data. The st udy was evaluated on independent 3D post-processing software. Post processed 3-D reconstructed rotati ng MIP and volume rendered angiographic images were generated on a [employer] workstation. Comparisons: 08/24/2023 Findings: Vascular Findings: The right brachiocephalic artery, left common carotid artery and the left subclavian artery demonstra te normal course and caliber. The pulmonary artery and major branches are well opacified without filling defect to suggest pulmonar y embolism. Increased size of the pulmonary arteries, concerning for pulmonary hypertension. Aorta: The ascending thoracic aorta, aortic arch, and descending thoracic aorta demonstrates normal c ourse and caliber. No thoracic aortic aneurysm is seen. Renal: The renal arteries are well opacified and normal in caliber without significant stenosis. No a ccessory renal arteries are identified. The renal venous drainage is unremarkable. Mesenteric: The mesenteric arteries are well opacified and normal in caliber without significant sten osis and have an unremarkable branching pattern. Iliac and Femoral: The iliac arteries are well opacified and normal in course and caliber without sig nificant stenosis. No significant stenosis of the internal or external iliac arteries is identified. Nonvascular Findings: CHEST: LINES AND DEVICES: None LUNGS: Bilateral pleural effusions causing compressive atelectasis. Scattered areas of groundglass op acities in both lungs. Mosaic attenuation of the lungs, likely obstructive small airway disease. LARGE AIRWAYS: Unremarkable PLEURA: Unremarkable HEART: Unremarkable MEDIASTINUM AND KEYLA: Unremarkable CHEST WALL/SOFT TISSUES: Unremarkable ABDOMEN/PELVIS: LIVER: Multiple subcentimeter hypodensities are seen in the liver, too small to accurately characteri ze. GALLBLADDER: Cholelithiasis. BILE DUCTS: No dilatation. SPLEEN: Within normal limits. PANCREAS: Within normal limits. ADRENAL GLANDS: Within normal limits. KIDNEYS and URETERS: No hydronephrosis or hydroureter. URINARY BLADDER: Within normal limits. STOMACH and BOWEL: No abnormal bowel wall thickening. No obstruction or pneumatosis. Normal appendix. REPRODUCTIVE ORGANS: Within normal limits. MESENTERY/PERITONEAL CAVITY: No free fluid or pneumoperitoneum. LYMPH NODES: No abdominal or pelvic lymphadenopathy. ABDOMINAL WALL: Small fat-containing umbilical hernia. MUSCULOSKELETAL: Multilevel degenerative changes of the spine. IMPRESSION: Increased size of the pulmonary arteries, concerning for pulmonary hypertension. Bilateral pleural effusions causing compressive atelectasis. Scattered areas of groundglass opacities in both lungs, can represent pulmonary edema versus pneumonia in appropriate clinical settings.. Mos aic attenuation of the lungs, likely obstructive small airway disease. Clinical correlation is recomm ended. Reviewed, dictated and finalized at location A. IMPRESSION: Increased size of the pulmonary arteries, concerning for pulmonary hypertension . Bilateral pleural effusions causing compressive atelectasis. Scattered areas of groundglass opacities in both lungs, can represent pulmonary edema versus pneu monia in appropriate clinical settings.. Mosaic attenuation of the lungs, likel y obstructive small airway disease. Clinical correlation is recommended.
--- NOTE | ~2025-02-24 | XR_ITS ---
XR chest 1V portable 02/24/2025 10:35 Indication: Shortness of breath Procedure: AP portable chest Comparison: Comparison to multiple prior studies sequentially, with oldest reviewed study dated 11/16. Findings: Bibasilar airspace disease. Cardiomegaly. Pulmonary vascular congestion. Small left pleural effusion. Impression: 1: Bibasilar airspace disease may represent edema, pneumonia and/or atelectasis. Reviewed, dictated and finalized at location A. Impression: 1: Bibasilar airspace disease may represent edema, pneumonia and/or atelectasis .
--- NOTE | ~2025-02-24 | XR_ITS ---
XR chest 1V portable 02/24/2025 13:04 Indication: CHF. Pleural effusion. Procedure: AP portable chest Comparison: Comparison to multiple prior studies sequentially, with oldest reviewed study dated 07/07. Findings: Bibasilar airspace disease may represent atelectasis or pneumonia. Small pleural effusions. No pneumothorax. No acute osseous abnormality. Impression: 1: Bibasilar airspace disease may represent atelectasis or developing pneumonia. 2: Small pleural effusions. Reviewed, dictated and finalized at location A. Impression: 1: Bibasilar airspace disease may represent atelectasis or developing pneumonia . 2: Small pleural effusions.
--- NOTE | 2025-02-24 09:29 | ECG_ITS ---
Test Date: 2025-02-24 09:39:49 Measurements Intervals [place] Rate: 89 P: -49 OR: 126 QRS: 88 QRSD: 94 T: -6 QT: 366 QTc: 446 Interpretive Statements NORMAL SINUS RHYTHM ARTIFACT LIMITS INTERPRETATION NONSPECIFIC ST AND T-WAVE ABNORMALITY ABNORMAL ECG No previous ECG available for comparison Electronically Signed On 02-24-2025 10:09:56 CDT by Fransisco Heredia M.D.
--- OUTSIDE RECORDS SUMMARY | 2025-02-24 09:37 | XMS_ITS | Clinical Summary ---
Author Organization [facility] Address [address] [place] [address] Care Team Providers Care Legal Support Assistant Name Role Phone Tio Shea MD Primary Care Provider [phone] [phone] Allergies No known active allergies Medications omeprazole [...] Date At risk for amiodarone toxicity with termite helper u se 01/29/2023 Chronic anticoagulation 01/29/2023 Hypertension [...] on file Legal Sex Female 6:47 PM VIDEOTAPE RECORDING ENGINEER Gender Identity Not on file Sexual Orientation Not on file Obstetrics History Last Filed Vital Signs Vital Sign Reading Time Taken Comments Blood Pressure 136/74 07/23/2024 2:44 PM VIDEOTAPE RECORDING ENGINEER Pulse 84 07/23/2024 2:44 PM VIDEOTAPE RECORDING ENGINEER Temperature 36.8 C (98.3 F) 12/11/2022 4:09 AM CDT Respiratory Rate 18 12/11/2022 11:30 AM CDT Oxygen Saturation 93% 07/23/2024 2:44 PM VIDEOTAPE RECORDING ENGINEER Inhaled Oxygen Concentration - - Weight 68 kg (150 lb) 07/23/2024 2:44 PM VIDEOTAPE RECORDING ENGINEER Height 152.4 cm (5') 07/23/2024 2:44 PM VIDEOTAPE RECORDING ENGINEER Body Mass Index 29.29 07/23/2024 2:44 PM VIDEOTAPE RECORDING ENGINEER Plan of Treatment Health Maintenance Due Date [...] - 2023-2 5 season) 2024 01/18/2021, 12/19/2020 Lipid Panel 09/09/2024 09/09/2023, 07/05, 12/03/2022 eGFR 01/23/2025 01/24/2024, 06/2 02/2023, 12/11/2022, Additional history exists Influenza Vaccine (#1) 2025 DTaP/Tdap/Td Vaccine (2 - Td or Tdap) 08/21/2028 08/21/2018 Procedures Procedure Name Priority Date/Time Associated Diagnosis Comments COMPREHENSIVE METABOLIC PANEL Routine 01/24/2024 1:29 PM CDT Paroxysmal atrial flutter (HCC) Chronic anticoagulation At risk for amiodarone toxicity with termite helper use LIPID PANEL Routine 09/09/2023 10:30 AM VIDEOTAPE RECORDING ENGINEER HEMOGLOBIN A1C Routine 12/04/2022 6:04 AM CDT [...] - 01/25/2024 7:11 AM CDT Performed at: [address] [place] [id number] Gym Instructor: Dominic Alicea PhD, Phone: [phone] Belinda Smith MD LAB BLOOD ORDERABLES Fi nal Result Performing Organization Address [facility] Co de Phone Number [facility] - * (ABNORMAL) Lipid panel (09/09/2023 10:30 AM VIDEOTAPE RECORDING ENGINEER) Pathologist [facility] Cholesterol 146 100 - 199 mg/dL [facility] - 01 Triglycerides 153(H) 0 - 149 mg/dL [facility] - 01 HDL Cholesterol 42 >39 mg/dL [facility] - 01 VLDL 27 5 - 40 mg/dL [facility] - 01 LDL, calculated 77 0 - 99 mg/dL [facility] - 01 09/09/2023 10:3 0 AM VIDEOTAPE RECORDING ENGINEER 09/09/2023 Narrative [facility] - 09/10/2023 2:08 AM VIDEOTAPE RECORDING ENGINEER Performed at: [facility] [id number] Gym Instructor: Dominic Alicea PhD, Phone: [phone] Specimen Comment: A courtesy copy of this report has been sent to [phone] Kurtis Abdalla MD LAB BLOOD ORDERABLES Fin al Result Performing Organization Address [facility] Co de Phone Number [facility] - * (ABNORMAL) Hemoglobin A1c (12/04/2022 6:04 AM CDT) Pathologist [facility] Hgb A1C 7.3(H) 4.0 - 5.6 % [...] MD LAB BLOOD ORDERABLES Final Re sult [facility] One [facility] Department [place] [address] from Last 3 Months or Most Recently Relevant to Health Maintenance Insurance MEDICARE COMMERCIAL [facility] MEDICARE COMMERCIAL GENERIC MEDICARE COMMERCIAL GENERIC Advance Directives For more information, please contact: [phone] * Full Code (Latest Code Status on File) Date Activated Date Inactivated Comments 12/04/2022 12:05 AM 12/11/2022 8:28 PM Care Teams Legal Support Assistant Relationship Specialty Start Date End Date Tio Shea MD PCP - General Family Medicine 05/01/21
--- OUTSIDE RECORDS SUMMARY | 2025-02-24 09:37 | XMS_ITS | Referral Summary ---
Author Organization [facility] Address [address] [place] [address] Care Team Providers Care Sanitarian Inspector Name Role Phone Tio Shea MD Primary Care Provider +1 [phone] Allergies No known active allergies Medications omeprazole [...] Date At risk for amiodarone toxicity with ferry terminal agent u se 01/29/2023 Chronic anticoagulation 01/29/2023 Hypertension [...] on file Legal Sex Female 6:47 PM DRUGLESS PHYSICIAN Gender Identity Not on file Sexual Orientation Not on file Last Filed Vital Signs Vital Sign Reading Time Taken Comments Blood Pressure 136/74 07/23/2024 2:44 PM DRUGLESS PHYSICIAN Pulse 84 07/23/2024 2:44 PM DRUGLESS PHYSICIAN Temperature 36.8 C (98.3 F) 12/11/2022 4:09 AM CDT Respiratory Rate 18 12/11/2022 11:30 AM CDT Oxygen Saturation 93% 07/23/2024 2:44 PM DRUGLESS PHYSICIAN Inhaled Oxygen Concentration - - Weight 68 kg (150 lb) 07/23/2024 2:44 PM DRUGLESS PHYSICIAN Height 152.4 cm (5') 07/23/2024 2:44 PM DRUGLESS PHYSICIAN Body Mass Index 29.29 07/23/2024 2:44 PM DRUGLESS PHYSICIAN Plan of Treatment Not on file Procedures Procedure Name Priority Date/Time Associated Diagnosis Comments COMPREHENSIVE METABOLIC PANEL Routine 01/24/2024 1:29 PM CDT Paroxysmal atrial flutter (HCC) Chronic anticoagulation At risk for amiodarone toxicity with residential use LIPID PANEL Routine 09/09/2023 10:30 AM DRUGLESS PHYSICIAN HEMOGLOBIN A1C Routine 12/04/2022 6:04 AM CDT from Last 3 Months or Most Recently Relevant to Health Maintenance Results * (ABNORMAL) Comprehensive metabolic panel (01/24/2024 1:29 PM CDT) Pathologist [facility] [place] Glucose 102(H) 70 - 99 mg/dL [facility] [...] - 01/25/2024 7:11 AM CDT Performed at: [address] [id number] Folder Taper Operator: Dominic Alicea PhD, Phone: [phone] [facility] Katie Smith MD LAB BLOOD ORDERABLES nal Result [facility] * (ABNORMAL) Lipid panel (09/09/2023 10:30 AM DRUGLESS PHYSICIAN) Pathologist [facility] [place] Cholesterol 146 100 - 199 mg/dL [facility] - 01 Triglycerides 153(H) 0 - 149 mg/dL [facility] - 01 HDL Cholesterol 42 >39 mg/dL [facility] - 01 VLDL 27 5 - 40 mg/dL [facility] - 01 LDL, calculated 77 0 - 99 mg/dL [facility] - 01 09/09/2023 10:3 0 AM DRUGLESS PHYSICIAN 09/09/2023 Narrative [facility] - 09/10/2023 2:08 AM DRUGLESS PHYSICIAN Performed at: [address] [id number] Folder Taper Operator: Dominic Alicea PhD, Phone: [phone] Specimen Comment: A courtesy copy of this report has been sent to [phone] Kurtis Abdalla MD LAB BLOOD ORDERABLES Fin al Result [facility] - 01 * (ABNORMAL) Hemoglobin A1c (12/04/2022 6:04 AM CDT) Hgb A1C 7.3(H) 4.0 - 5.6 % [facility] Estimated Average Glucose 163 mg/dL [facility] Comment: The ADA recommends reporting an estimated [...] ORDERABLES Final Re sult Performing Organization Address [facility] Co de Phone Number [facility] One [facility] [place] [address] from Last 3 Months or Most Recently Relevant to Health Maintenance Insurance MEDICARE COMMERCIAL GENERIC MEDICARE Member Subscriber Plan / Payer (Ef fective 2019-Present) Name:Stella Carroll Member ID:[id number] Relation to Subscriber:Self Name:Stella Carroll Subscriber ID:[id number] Payer ID:[id number] Group ID:Not on file Type:MEDICARE TRADITIONAL Address: [place] [phone] COMMERCIAL [facility] MEDICARE COMMERCIAL GENERIC Advance Directives For more information, please contact: [phone] * Full Code (Latest Code Status on File) Date Activated Date Inactivated Comments 12/04/2022 12:05 AM 12/11/2022 8:28 PM Care Teams Sanitarian Inspector Relationship Specialty Start Date End Date Tio Shea MD PCP - General Family Medicine 05/01/21
--- NOTE | 2025-02-24 09:47 | ED_ITS ---
HPI - SOB/Dyspnea General Chief Complaint: Shortness of Breath/Dyspnea Stated Complaint: shortness of breath and dizzy Time Seen by Provider: 02/24/25 09:43 Source: patient and family History of Present Illness HPI Narrative: 69 YEARS OLD WHITE FEMALE CAME TO THE ED BY PRIVATE CAR COMPLAINING OF CHEST PAIN, ABDOMINAL PAIN, FEVER OR CHILLS. PATIENT IS NOT ON HOME OXYGEN. DIZZINESS, SHORTNESS OF BREATH, STARTED 2 DAYS AGO, GETTING WORSE. HISTORY OF DIABETES, HYPERLIPIDEMIA, HYPERTENSION, PATIENT DENIES FEVER OR CHILLS. PATIENT DID NOT TAKE HER POTASSIUM SUPPLEMENT FOR THE LAST 11 DAYS. Related Data Home Medications ?Medication ?Instructions ?Recorded ?Confirmed ?Last Taken ?Type cholecalciferol (vitamin D3) 125 125 mcg PO DAILY 10/24/22 11/20/24 02/24/24 History mcg (5,000 unit) capsule 899 rosuvastatin 40 mg tablet 40 mg PO DAILY 02/14/24 11/20/24 02/24/24 History fluticasone propionate 50 intranasal 05/06/24 11/20/24 Unknown History mcg/actuation nasal spray,suspension latanoprost 0.005 % eye drops drp EACH EYE 05/06/24 11/20/24 Unknown History Allergies Allergy/AdvReac Type Severity Reaction Status Date / Time No Known Allergies Allergy Verified 02/24/25 09:25 Review of Systems 2 Review of Systems: All systems reviewed & are unremarkable except as noted in HPI and below PMFSH Past Medical History Medical History Positive colorectal cancer screening using Cologuard test HTN (hypertension) Atrial fibrillation/flutter Dx at [facility] during admission on 12/05/22-12/11/22 Obstructive sleep apnea Gout Diabetes mellitus type 2 in obese Mood disorder (HFpEF) heart failure with preserved ejection fraction Mitral regurgitation Herpes zoster Shingles Flare in October of 2022 Breast cancer screening by mammogram Obesity (BMI 30.0-34.9) GERD without esophagitis Migraine, unspecified, not intractable, without status migrainosus Mixed hyperlipidemia Unspecified sensorineural hearing loss Surgical History Surgical History H/O tubal ligation H/O section X2 History of cochlear implant Family History Family History Sibling Patient's sister is Mother Patient's mother is Other Family history of elevated blood lipids Family history of glaucoma Hypertension Social History Social History Social History: The patient is and lives with her . She has 2 children. She is retired from [employer]. She is a lifelong nonsmoker. She does not use any alcohol marijuana or illicit drugs. Code status full code Smoking status: Never smoker Alcohol intake: never Substance use: never Substance use type: does not use Do You Feel Safe in your Home?: Yes Lack of Transportation: No Lack of Food: Never True Current Housing: I Have Housing Concerned About Future Housing: No Difficulty Paying Gas/Electric Bills: No Difficulty Paying for Meds: No Currently Unemployed: No Education: High School Diploma/GED Difficulty w/ Childcare or Family Care: No Living arrangements: other Additional living arrangements comments: with sp Spiritual care concerns: No Exam 2 Narrative: GENERAL APPEARANCE: WELL-DEVELOPED, WELL-NOURISHED SKIN: NORMAL COLOR, 2+ EDEMA LOWER EXTREMITY BILATERALLY HEAD: NORMOCEPHALIC, NONTRAUMATIC EYES: CLEAR CONJUNCTIVA ENT: OROPHARYNX NORMAL, EARS NORMAL, NOSE NORMAL NECK: SUPPLE, NONTENDER CHEST AND RESPIRATORY: AIRWAY PATENT, RESPIRATORY DISTRESS, ACCESSORY MUSCLE USE, DIMINUTION OF AIR ENTRY BILATERALLY, SCATTERED RALES BILATERALLY HEART: REGULAR RATE/RHYTHM ABDOMEN: SOFT, NONTENDER, NO ORGANOMEGALY, QUIET BOWEL SOUNDS VASCULAR: NORMAL PERIPHERAL PULSES, NORMAL CAPILLARY REFILL. MUSCULOSKELETAL: NORMAL RANGE OF MOTION, NONTENDER BACK NEUROLOGIC: ALERT AND ORIENTED ?3, OYSTERMAN IS NORMAL TESTED, NO GROSS MOTOR DEFICIT Course Vital Signs Vital signs: Vital Signs Temperature 36.4 C 02/24/25 09:28 Pulse Rate 86 02/24/25 09:28 Respiratory Rate 22 H 02/24/25 09:28 Blood Pressure 143/66 H 02/24/25 09:28 Pulse Oximetry 84 L 02/24/25 09:28 Temperature 36.5 C 02/24/25 10:08 Pulse Rate 82 02/24/25 12:46 Respiratory Rate 22 H 02/24/25 12:46 Blood Pressure 123/64 02/24/25 12:46 Pulse Oximetry 97 02/24/25 12:46 Oxygen Delivery BiPAP 02/24/25 11:03 Oxygen Flow Rate 4 02/24/25 10:17 MDM - SOB/Dyspnea MDM Narrative Medical decision making narrative: PATIENT CAME WITH CHEST PAIN, SHORTNESS OF BREATH, ABDOMINAL PAIN VITAL SIGNS SHOWING SATURATION AT 84 ON ROOM AIR, RESPIRATION 22 OTHERWISE WITHIN NORMAL LIMIT PHYSICAL EXAMINATION SHOWING A PATIENT IN RESPIRATORY DISTRESS, EDEMA LOWER EXTREMITY, LUNG RALES BILATERALLY DIFFERENTIAL DIAGNOSIS INCLUDE CHF, CORONARY ARTERY DISEASE, PLEURAL EFFUSION, PNEUMONIA, PNEUMOTHORAX BLOOD WORKUP TODAY INCLUDE CBC, CMP, BLOOD CULTURE, LACTIC ACID, PRO BMP, TROPONIN SHOWED WBC 16.1, CREATININE OF 1.4, OTHERWISE WITHIN NORMAL LIMIT URINALYSIS SHOWED NO EVIDENCE OF INFECTION, PATIENT TESTED NEGATIVE FOR COVID FLU AND RSV EKG ON ARRIVAL SHOWED CHEST X-RAY SHOWED PULMONARY CONGESTION, PNEUMONIA CTA CHEST ABDOMEN PELVIS SHOWED PULMONARY HYPERTENSION, BILATERAL PLEURAL EFFUSION, PULMONARY CONGESTION VERSUS PNEUMONIA, Admit to hospitalist Diagnosis: Acute hypoxic respiratory failure, congestive heart failure, pneumonia Differential Diagnosis Differential diagnosis: Likely other ( ABOVE) Medical Records Attestation: I reviewed the patient's medical records. Lab Data Attestation: I reviewed the patient's lab results. 02/24/25 10:02 02/24/25 10:02 Labs: Lab Results 02/24/25 02/24/25 02/24/25 Range/Units 10:02 10:13 10:27 WBC 16.1 H (4.5-10.0) K/mm3 RBC 3.72 L (4.2-5.4) M/mm3 Hgb 11.4 L (12.0-15.0) g/dL Hct 35.5 L (37.0-47.0) % MCV 95.4 (80-100) fl MCH 30.6 (26-34) pg MCHC 32.1 (32-36) g/dl RDW 15.9 H (11.5-14.5) % Plt Count 403 H (150-375) k/mm3 MPV 11.1 H (7.4-10.4) fl Immature Gran % (Auto) 0.6 H (0-0.5) % Neut % (Auto) 87.6 H (45.5-73.1) % Lymph % (Auto) 6.5 L (18.3-44.2) % Culberson % (Auto) 4.4 (2.6-8.5) % Eos % (Auto) 0.4 (0-4.4) % Baso % (Auto) 0.5 (0.2-1.2) % Lymph # (Auto) 1.04 (0.9-3.2) K/mm3 Culberson # (Auto) 0.7 H (0.1-0.6) K/mm3 Eos # (Auto) 0.1 (0-0.3) K/mm3 Baso # (Auto) 0.1 (0.0-0.1) K/mm3 Abs Immat Gran (auto) 0.10 H (0.00-0.031) K/mm3 Absolute Neuts (auto) 14.1 H (1.3-6.7) K/mm3 Absolute Nucleated RBC 0.000 (0.0-0.012) K/mm3 Nucleated RBC % 0.0 (0.0-0.2) % PT 16.7 H (11.1-14.7) Seconds INR 1.4 APTT 33.5 (22.3-36.8) Seconds Expiratory Pressure 6 CMH2O Inspiratory Pressure 12 CMH2O Sodium 138 (137-145) mmol/L Potassium 3.8 (3.4-5.0) mmol/L Chloride 104 (98-107) mmol/L Carbon Dioxide 24 (22-30) mmol/L Anion Gap 10 (4-12) mmol/L BUN 16 (7-17) mg/dL Creatinine 1.40 H (0.7-1.0) mg/dL Estim Creat Clear Calc 29 ml/min Estimated GFR 37 L (59 - ) Glucose 130 H (65-110) mg/dL Lactic Acid 1.3 (0.7-2.0) mmol/L Calcium 10.0 (8.4-10.2) mg/dL Total Bilirubin 1.5 H (0.2-1.3) mg/dL AST 52 H (14-36) U/L ALT 60 H (6-35) U/L Alkaline Phosphatase 119 (38-126) U/L Troponin I Pending C-Reactive Protein Pending NT-Pro-B Natriuret Pep Pending Total Protein 7.9 (6.3-8.2) g/dL Albumin 4.3 (3.5-5.1) g/dL Urine Color (Yellow) Urine Appearance (Clear) Urine pH (5.0-9.0) Ur Specific Branscomb (1.001-1.035) Urine Protein (Negative) mg/dL Urine Glucose (UA) (Negative) mg/dL Urine Ketones (Negative) mg/dL Ur Blood (Man) (Negative) Urine Nitrate (Negative) Urine Bilirubin (Negative) Urine Urobilinogen (<2.0) mg/dL Leukocyte Esterase Rfl (Negative) CYNTHIA/UL Urine RBC (0-2) /hpf Urine WBC (0-3) /hpf Ur Squamous Epith Cells (Few) /hpf Urine Bacteria /hpf Urine Casts Influenza A (RT-PCR) Negative (Negative) Influenza B (RT-PCR) Negative (Negative) RSV (RT-PCR) Negative (Negative) SARS-CoV-2 RNA (RT-PCR) Negative (Negative) 02/24/25 Range/Units 11:43 WBC (4.5-10.0) K/mm3 RBC (4.2-5.4) M/mm3 Hgb (12.0-15.0) g/dL Hct (37.0-47.0) % MCV (80-100) fl MCH (26-34) pg MCHC (32-36) g/dl RDW (11.5-14.5) % Plt Count (150-375) k/mm3 MPV (7.4-10.4) fl Immature Gran % (Auto) (0-0.5) % Neut % (Auto) (45.5-73.1) % Lymph % (Auto) (18.3-44.2) % Culberson % (Auto) (2.6-8.5) % Eos % (Auto) (0-4.4) % Baso % (Auto) (0.2-1.2) % Lymph # (Auto) (0.9-3.2) K/mm3 Culberson # (Auto) (0.1-0.6) K/mm3 Eos # (Auto) (0-0.3) K/mm3 Baso # (Auto) (0.0-0.1) K/mm3 Abs Immat Gran (auto) (0.00-0.031) K/mm3 Absolute Neuts (auto) (1.3-6.7) K/mm3 Absolute Nucleated RBC (0.0-0.012) K/mm3 Nucleated RBC % (0.0-0.2) % PT (11.1-14.7) Seconds INR APTT (22.3-36.8) Seconds Expiratory Pressure CMH2O Inspiratory Pressure CMH2O Sodium (137-145) mmol/L Potassium (3.4-5.0) mmol/L Chloride (98-107) mmol/L Carbon Dioxide (22-30) mmol/L Anion Gap (4-12) mmol/L BUN (7-17) mg/dL Creatinine (0.7-1.0) mg/dL Estim Creat Clear Calc ml/min Estimated GFR (59 - ) Glucose (65-110) mg/dL Lactic Acid (0.7-2.0) mmol/L Calcium (8.4-10.2) mg/dL Total Bilirubin (0.2-1.3) mg/dL AST (14-36) U/L ALT (6-35) U/L Alkaline Phosphatase (38-126) U/L Troponin I C-Reactive Protein NT-Pro-B Natriuret Pep Total Protein (6.3-8.2) g/dL Albumin (3.5-5.1) g/dL Urine Color Yellow (Yellow) Urine Appearance Clear (Clear) Urine pH 7.5 (5.0-9.0) Ur Specific Branscomb 1.011 (1.001-1.035) Urine Protein 1+ H (Negative) mg/dL Urine Glucose (UA) Negative (Negative) mg/dL Urine Ketones Negative (Negative) mg/dL Ur Blood (Man) 1+ H (Negative) Urine Nitrate Negative (Negative) Urine Bilirubin Negative (Negative) Urine Urobilinogen 0.2 (<2.0) mg/dL Leukocyte Esterase Rfl Negative (Negative) CYNTHIA/UL Urine RBC 0-2 (0-2) /hpf Urine WBC 0-5 (0-3) /hpf Ur Squamous Epith Cells None seen (Few) /hpf Urine Bacteria None seen /hpf Urine Casts 0-2 Influenza A (RT-PCR) (Negative) Influenza B (RT-PCR) (Negative) RSV (RT-PCR) (Negative) SARS-CoV-2 RNA (RT-PCR) (Negative) ABG Data ABG results: 02/24/25 10:27 Puncture Site Left radial ABG pH 7.458 H ABG pCO2 31.9 L ABG pO2 64.7 L ABG PO2/FiO2 Ratio 2.16 ABG HCO3 22.1 ABG O2 Saturation 93.9 L ABG O2 Content 14.8 L ABG Base Excess -1.1 A-a Gradient 111.7 Oxyhemoglobin 90.5 Total Hemoglobin 11.6 L O2 Delivery Device Non-invasive vent O2 Liters/Min 0.0 Vent Rate 4 FiO2 30 Discharge Plan Discharge Clinical Impression: Acute hypoxic respiratory failure, CHF (congestive heart failure), Pneumonia Patient Disposition: Still a Patient Condition: Stable Additional Instructions: Admit to hospitalist Patient Language: Martiniquais Prescriptions: No Action cholecalciferol (vitamin D3) 125 mcg (5,000 unit) capsule 125 mcg PO DAILY (DME) Nasal pillow mask for CPAP See Rx Instructions .Route .MEDSUPPLY Qty: 1 0RF Rx Instructions: As directed latanoprost 0.005 % drops EACH EYE fluticasone propionate 50 mcg/actuation spray,suspension intranasal gabapentin 600 mg tablet 600 mg PO TID Qty: 270 3RF ondansetron 4 mg tablet,disintegrating 4 mg PO Q6H PRN (Reason: nausea and vomiting) Qty: 10 0RF magnesium oxide 400 mg (241.3 mg magnesium) Tablet 400 mg PO QAM Qty: 30 0RF rosuvastatin 40 mg tablet 40 mg PO DAILY (DME) CPAP See Rx Instructions .Route .MEDSUPPLY Qty: 1 0RF Rx Instructions: Resmed AirSense 11 AutoPAP 5-15 cm H2O, CPAP mask/filters/tubing and humidifier chamber. Eliquis 5 mg tablet 5 mg PO Q12HR Qty: 60 1RF (DME) lancets [OneTouch Delica Plus Lancet] 30 gauge misc See Rx Instructions .Route Qty: 200 3RF Rx Instructions: Use to check BS TID amlodipine 10 mg tablet 10 mg PO QAM Qty: 90 3RF (DME) OneTouch Ultra Test Strip See Rx Instructions .ROUTE .COMPLEX Qty: 100 3RF Dose Instruction: USE TO CHECK BLOOD SUGAR DAILY Rx Instructions: USE TO CHECK BLOOD SUGAR daily Patient is not on insulin and checks sugars daily metoprolol succinate 50 mg tablet extended release 24 hr 50 mg PO DAILY Qty: 90 1RF Mounjaro 2.5 mg/0.5 mL pen injector 2.5 mg subcut WEEKLY 28 Days Qty: 6 3RF metformin 500 mg tablet 500 mg PO BID Qty: 180 1RF omeprazole 20 mg capsule,delayed release(DR/EC) 20 mg PO DAILY Qty: 90 1RF allopurinol 100 mg tablet 200 mg PO DAILY Qty: 180 0RF amiodarone [Pacerone] 200 mg tablet 200 mg PO DAILY Qty: 90 0RF Follow-up/Referrals: Tio Shea MD [Primary Care Provider] -
[2025-02-24] MEDS: FUROSEMIDE INJ 100 MG/10 ML VIAL 60 MG IV PUSH (10:22)
[2025-02-24 10:24] LABS: Hematocrit 35.5 % (37.0-47.0); Hemoglobin 11.4 g/dL (12.0-15.0); Immature Granulocyte Percent A 0.6 % (0-0.5); Lymphocytes Absolute Auto 1.04 K/mm3 (0.9-3.2); Mean Corpuscular HGB Conc 32.1 g/dl (32-36); Mean Corpuscular Hemoglobin 30.6 pg (26-34); Mean Corpuscular Volume 95.4 fl (80-100); Nucleated Red Blood Cells Absolute Auto 0.000 K/mm3 (0.0-0.012); Nucleated Red Blood Cells Perc 0.0 % (0.0-0.2); Platelet Count Result 403 k/mm3 (150-375); Red Blood Count 3.72 M/mm3 (4.2-5.4); White Blood Count 16.1 K/mm3 (4.5-10.0)
[2025-02-24 10:31] LABS: Alveolar/Arterial O2 Gradient 111.7 mmHg; Fractional Inspired Oxygen 30 %; HCO3 ABG 22.1 mEq/l (22.0-26.0); Oxygen Content ABG 14.8 %vol (16.0-22.0); Oxygen Saturation ABG 93.9 % (95.0-100.0); PCO2 ABG 31.9 mmHg (35.0-45.0); PO2 ABG 64.7 mmHg (80.0-100.0); PO2 FiO2 Ratio Arterial Blood 2.16 %
[2025-02-24 10:32] LABS: Modified Allen's Test Pass; Site Drawn LEFT RADIAL
[2025-02-24 10:33] LABS: Liters per Minute 0.0 LPM; Non-Invasive Inspiratory Pressure 12 CMH2O; Non-Invasive Vent Rate 4 /MIN
[2025-02-24 10:34] LABS: Non-Invasive Expiratory Pressure 6 CMH2O
--- NOTE | 2025-02-24 10:34 | PC.NURSE ---
pt unable to give a clean catch urine sample due to being on bipap. pt is A&OX4 and did not want a catheter. EDP Dr. Fisher gave verbal order for UA sample to be taken from pt purwick. the area was sterilized before placing.
[2025-02-24 10:38] LABS: INR 1.4; Prothrombin Time 16.7 Seconds (11.1-14.7)
[2025-02-24 10:39] LABS: Partial Thromboplastin Time 33.5 Seconds (22.3-36.8)
[2025-02-24 10:43] LABS: Alanine Aminotransferase 60 U/L (6-35); Albumin Level 4.3 g/dL (3.5-5.1); Alkaline Phosphatase 119 U/L (38-126); Anion Gap 10 mmol/L (4-12); Aspartate Amino Transferase 52 U/L (14-36); Bilirubin,Total 1.5 mg/dL (0.2-1.3); Blood Urea Nitrogen 16 mg/dL (7-17); Calcium 10.0 mg/dL (8.4-10.2); Carbon Dioxide 24 mmol/L (22-30); Chloride 104 mmol/L (98-107); Estimated CRCL calculation 29 ml/min; Estimated Glomerular Filt Rate 37; Glucose 130 mg/dL (65-110); Potassium 3.8 mmol/L (3.4-5.0); Sodium 138 mmol/L (137-145); Total Protein 7.9 g/dL (6.3-8.2)
[2025-02-24 11:05] LABS: Influenza A QL RT-PCR Negative (Negative); Influenza B QL RT-PCR Negative (Negative); RSV RNA, RT-PCR Negative (Negative); SARS-CoV-2 RNA PCR Negative (Negative)
--- OUTSIDE RECORDS SUMMARY | 2025-02-24 11:25 | XMS_ITS | Referral Summary ---
Author Organization [facility] Address [address] [place] [address] Care Team Providers Care Medical Device Assembler Name Role Phone Tio Shea MD Primary Care Provider [phone] Allergies No known active allergies Medications omeprazole [...] At risk for amiodarone toxicity with termite control technician u se 01/29/2023 Chronic anticoagulation 01/29/2023 Hypertension [...] on file Legal Sex Female 6:47 PM MARINATOR Gender Identity Not on file Sexual Orientation Not on file Last Filed Vital Signs Vital Sign Reading Time Taken Comments Blood Pressure 136/74 07/23/2024 2:44 PM MARINATOR Pulse 84 07/23/2024 2:44 PM MARINATOR Temperature 36.8 C (98.3 F) 12/11/2022 4:09 AM CDT Respiratory Rate 18 12/11/2022 11:30 AM CDT Oxygen Saturation 93% 07/23/2024 2:44 PM MARINATOR Inhaled Oxygen Concentration - - Weight 68 kg (150 lb) 07/23/2024 2:44 PM MARINATOR Height 152.4 cm (5') 07/23/2024 2:44 PM MARINATOR Body Mass Index 29.29 07/23/2024 2:44 PM MARINATOR Plan of Treatment Not on file Procedures Procedure Name Priority Date/Time Associated Diagnosis Comments COMPREHENSIVE METABOLIC PANEL Routine 01/24/2024 1:29 PM CDT Paroxysmal atrial flutter (HCC) Chronic anticoagulation At risk for amiodarone toxicity with assisted use LIPID PANEL Routine 09/09/2023 10:30 AM MARINATOR HEMOGLOBIN A1C Routine 12/04/2022 6:04 AM CDT from Last 3 Months or Most Recently Relevant to Health Maintenance Results * (ABNORMAL) Comprehensive metabolic panel (01/24/2024 1:29 PM CDT) Pathologist [facility] Glucose 102(H) 70 - 99 mg/dL [facility] [...] - 01/25/2024 7:11 AM CDT Performed at: [address] [id number] Balance Wheel Motion Inspector: Dominic Alicea PhD, Phone: [phone] [facility] Katie Smith MD LAB BLOOD ORDERABLES nal Result [facility] * (ABNORMAL) Lipid panel (09/09/2023 10:30 AM MARINATOR) Pathologist [facility] Cholesterol 146 100 - 199 mg/dL [facility] - 01 Triglycerides 153(H) 0 - 149 mg/dL [facility] - 01 HDL Cholesterol 42 >39 mg/dL [facility] - 01 VLDL 27 5 - 40 mg/dL [facility] - 01 LDL, calculated 77 0 - 99 mg/dL [facility] - 01 09/09/2023 10:3 0 AM MARINATOR 09/09/2023 Narrative [facility] - 09/10/2023 2:08 AM MARINATOR Performed at: [address] [id number] Balance Wheel Motion Inspector: Dominic Alicea PhD, Phone: [phone] Specimen Comment: A courtesy copy of this report has been sent to [phone] Kurtis Abdalla MD LAB BLOOD ORDERABLES Fin al Result [facility] - 01 * (ABNORMAL) Hemoglobin A1c (12/04/2022 6:04 AM CDT) Hgb A1C 7.3(H) 4.0 - 5.6 % [facility] Estimated Average Glucose 163 mg/dL [facility] Comment: The ADA recommends reporting an estimated [...] ORDERABLES Final Re sult Performing Organization Address [facility] Co de Phone Number [facility] Department [place] [address] from Last 3 Months or Most Recently Relevant to Health Maintenance Insurance MEDICARE COMMERCIAL GENERIC MEDICARE Member Subscriber Plan / Payer (Ef fective 2019-Present) Name:Stella Carroll Member ID:[id number] Relation to Subscriber:Self Name:Stella Carroll Subscriber ID:[id number] Payer ID:[id number] Group ID:Not on file Type:MEDICARE TRADITIONAL Address: [place] [id number] COMMERCIAL [facility] MEDICARE COMMERCIAL GENERIC Advance Directives For more information, please contact: [phone] * Full Code (Latest Code Status on File) Date Activated Date Inactivated Comments 12/04/2022 12:05 AM 12/11/2022 8:28 PM Care Teams Medical Device Assembler Relationship Specialty Start Date End Date Tio Shea MD PCP - General Family Medicine 05/01/21
--- OUTSIDE RECORDS SUMMARY | 2025-02-24 11:25 | XMS_ITS | Clinical Summary ---
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 Gender Identity Not on file Sexual Orientation Not on file Obstetrics History Last Filed Vital Signs Vital Sign Reading Time Taken Comments Blood Pressure 136/74 07/23/2024 2:44 PM BAG MACHINE OPERATOR Pulse 84 07/23/2024 2:44 PM BAG MACHINE OPERATOR Temperature 36.8 C (98.3 F) 12/11/2022 4:09 AM CDT Respiratory Rate 18 12/11/2022 11:30 AM CDT Oxygen Saturation 93% 07/23/2024 2:44 PM BAG MACHINE OPERATOR Inhaled Oxygen Concentration - - Weight 68 kg (150 lb) 07/23/2024 2:44 PM BAG MACHINE OPERATOR Height 152.4 cm (5') 07/23/2024 2:44 PM BAG MACHINE OPERATOR Body Mass Index 29.29 07/23/2024 2:44 PM BAG MACHINE OPERATOR Plan of Treatment Health Maintenance Due Date [...] anticoagulation At risk for amiodarone toxicity with rodent exterminator use LIPID PANEL Routine 09/09/2023 10:30 AM BAG MACHINE OPERATOR HEMOGLOBIN A1C Routine 12/04/2022 6:04 AM [...] - 01/25/2024 7:11 AM CDT Performed at: [address] [place] [id number] Vest Tailor: Dominic Alicea PhD, Phone: [phone] Belinda Smith MD LAB BLOOD ORDERABLES Fi nal Result Performing Organization Address [facility] Co de Phone Number [facility] - * (ABNORMAL) Lipid panel (09/09/2023 10:30 AM BAG MACHINE OPERATOR) Pathologist [facility] Cholesterol 146 100 - 199 mg/dL [facility] - 01 Triglycerides 153(H) 0 - 149 mg/dL [facility] - 01 HDL Cholesterol 42 >39 mg/dL [facility] - 01 VLDL 27 5 - 40 mg/dL [facility] - 01 LDL, calculated 77 0 - 99 mg/dL [facility] - 01 09/09/2023 10:3 0 AM BAG MACHINE OPERATOR 09/09/2023 Narrative [facility] - 09/10/2023 2:08 AM BAG MACHINE OPERATOR Performed at: [facility] [id number] Vest Tailor: Dominic Alicea PhD, Phone: [phone] Specimen Comment: A courtesy copy of this report has been sent to [phone] Kurtis Abdalla MD LAB BLOOD ORDERABLES Fin al Result Performing Organization Address [facility] Co de Phone Number [facility] - * (ABNORMAL) Hemoglobin A1c (12/04/2022 6:04 AM CDT) Pathologist [facility] Hgb A1C 7.3(H) 4.0 - 5.6 [...] MD LAB BLOOD ORDERABLES Final [facility] Department [place] [address] from Last 3 Months or Most Recently Relevant to Health Maintenance Insurance MEDICARE COMMERCIAL [facility] MEDICARE COMMERCIAL GENERIC MEDICARE COMMERCIAL GENERIC Advance Directives For more information, please contact: [phone] * Full Code (Latest Code Status on File) Date Activated Date Inactivated Comments 12/04/2022 12:05 AM 12/11/2022 8:28 PM Care Teams Shoulder Sawyer Relationship Specialty Start Date End Date Tio Shea MD PCP - General Family Medicine 05/01/21
[2025-02-24 11:53] LABS: Add Urine Microscopic? YES; Appearance Urine Clear (Clear); Glucose Urine UA Negative (Negative); Leukocyte Esterase Ur Negative LEU/UL (Negative); Nitrate Urine Negative (Negative); Non Pathogenic Casts 0-2; Specific Grav Ur 1.011 (1.001-1.035)
--- NOTE | 2025-02-24 12:24 | P.HP_ITS ---
H&P: HPI History of Present Illness Date/Time: 02/24/25 12:24 Chief Complaint: Shortness of breath Narrative: 69-year-old female with past medical history of our failure with preserved ejection fraction, AYLEEN, diabetes type 2, hypertension hyperlipidemia presents the hospital with shortness of breath. She states that it started about 2 days ago. Patient's breathing has improved since receiving IV Lasix in ED and she is able to tolerate 4 L nasal cannula. Patient is on home oxygen. Patient denies nausea vomiting fever chills. Lab work in the ED shows leukocytosis at 16.1, anemia 11.4, ABG shows pH of 7. 45, pCO2 of 31, PO2 of 64, bicarb of 22, creatinine of 1.4 which is around baseline, bilirubin of 1.5, AST of 52, ALT of 60 which are lower than baseline, troponin and BNP are pending, UA is negative for infection, influenza A/B, RSV, COVID negative. Chest x-ray shows Bibasilar airspace disease may represent edema, pneumonia and/or atelectasis. Chest abdomen pelvis show Increased size of the pulmonary arteries, concerning for pulmonary hypertension, bilateral pleural effusions causing compressive atelectasis. Scattered areas of groundglass opacities in both lungs, can represent pulmonary edema versus pneumonia in appropriate clinical settings, and mosaic attenuation of the lungs, likely obstructive small airway disease. Patient is being admitted for acute CHF Review of Systems Review of Systems: 12 systems were reviewed and are negativ e except for as per HPI. [facility] Past Medical History Medical History Positive colorectal cancer screening using Cologuard test HTN (hypertension) Atrial fibrillation/flutter Dx at [facility] during admission on 12/05/22-12/11/22 Obstructive sleep apnea Gout Diabetes mellitus type 2 in obese Mood disorder (HFpEF) heart failure with preserved ejection fraction Mitral regurgitation Herpes zoster Shingles Flare in October of 2022 Breast cancer screening by mammogram Obesity (BMI 30.0-34.9) GERD without esophagitis Migraine, unspecified, not intractable, without status migrainosus Mixed hyperlipidemia Unspecified sensorineural hearing loss Surgical History Surgical History H/O tubal ligation H/O section X2 History of cochlear implant Family History Family History Sibling Patient's sister is Mother Patient's mother is Other Family history of elevated blood lipids Family history of glaucoma Hypertension Social History Social History Social History: The patient is and lives with her . She has 2 children. She is retired from [employer]. She is a lifelong nonsmoker. She does not use any alcohol marijuana or illicit drugs. Code status full code Smoking status: Never smoker Alcohol intake: never Substance use: never Substance use type: does not use Do You Feel Safe in your Home?: Yes Lack of Transportation: No Lack of Food: Never True Current Housing: I Have Housing Concerned About Future Housing: No Difficulty Paying Gas/Electric Bills: No Difficulty Paying for Meds: No Currently Unemployed: No Education: High School Diploma/GED Difficulty w/ Childcare or Family Care: No Living arrangements: other Additional living arrangements comments: with sp Spiritual care concerns: No Meds Home Medications and Allergies Home Medications ?Medication ?Instructions ?Recorded ?Confirmed ?Type cholecalciferol (vitamin D3) 125 125 mcg PO DAILY 10/24/22 02/24/25 History mcg (5,000 unit) capsule magnesium oxide 400 mg (241.3 mg 400 mg PO QAM #30 tabs 11/20/22 02/24/25 Rx magnesium) tablet CPAP #1 ea 07/04/23 02/24/25 Rx apixaban 5 mg tablet (Eliquis) 5 mg PO Q12HR #60 tabs 08/06/23 02/24/25 Rx Nasal pillow mask for CPAP #1 ea 08/19/23 02/24/25 Rx lancets 30 gauge (OneTouch Delica #200 ea 08/21/23 02/24/25 Rx Plus Lancet) rosuvastatin 40 mg tablet 40 mg PO DAILY 02/14/24 02/24/25 History amlodipine 10 mg tablet 10 mg PO QAM #90 tabs 04/07/24 02/24/25 Rx fluticasone propionate 50 1 spray intranasal Q12H 05/06/24 02/24/25 History mcg/actuation nasal spray,suspension latanoprost 0.005 % eye drops 1 drp EACH EYE QPM 05/06/24 02/24/25 History ondansetron 4 mg disintegrating 4 mg PO Q6H PRN nausea and 07/25/24 02/24/25 Rx tablet vomiting #10 tabs blood sugar diagnostic (OneTouch #100 strips 08/31/24 02/24/25 Rx Ultra Test strips) metoprolol succinate 50 mg 50 mg PO DAILY #90 tabs 09/23/24 02/24/25 Rx tablet,extended release 24 hr tirzepatide 2.5 mg/0.5 mL 2.5 mg (0.5 mL) subcut WEEKLY 4 11/03/24 02/24/25 Rx subcutaneous pen injector weeks #6 mL (Anika) gabapentin 600 mg tablet 600 mg PO TID #270 tabs 11/20/24 02/24/25 Rx metformin 500 mg tablet 500 mg PO BID #180 tabs 12/10/24 02/24/25 Rx omeprazole 20 mg capsule,delayed 20 mg PO DAILY #90 caps 12/23/24 02/24/25 Rx release allopurinol 100 mg tablet 200 mg (2 x 100 mg) PO DAILY #180 12/24/24 02/24/25 Rx tabs amiodarone 200 mg tablet (Pacerone) 200 mg PO DAILY #90 tabs 12/24/24 02/24/25 Rx Allergies Allergy/AdvReac Type Severity Reaction Status Date / Time No Known Allergies Allergy Verified 02/24/25 09:25 Vital Signs Vital Signs - 24 hr 02/24/25 09:28 02/24/25 10:02 02/24/25 10:08 Temperature 97.6 F 97.7 F Pulse Rate 86 84 82 Respiratory Rate 22 H 29 H 28 H Blood Pressure 143/66 H 138/56 L 138/56 L Pulse Oximetry 84 L 96 97 Oxygen Delivery BiPAP Oxygen Flow Rate 02/24/25 10:15 02/24/25 10:16 02/24/25 10:16 Temperature Pulse Rate 83 Respiratory Rate 29 H Blood Pressure Pulse Oximetry 94 97 87 L Oxygen Delivery BiPAP BiPAP Room Air Oxygen Flow Rate 02/24/25 10:16 02/24/25 10:17 02/24/25 10:17 Temperature Pulse Rate 82 82 Respiratory Rate 29 H Blood Pressure 133/67 Pulse Oximetry 97 96 Oxygen Delivery Nasal Cannula Oxygen Flow Rate 4 02/24/25 10:17 02/24/25 10:31 02/24/25 10:46 Temperature Pulse Rate 85 86 Respiratory Rate 26 H 21 H Blood Pressure 141/77 H 132/98 H Pulse Oximetry 97 95 98 Oxygen Delivery BiPAP Oxygen Flow Rate 02/24/25 11:03 Temperature Pulse Rate 82 Respiratory Rate 29 H Blood Pressure Pulse Oximetry 94 Oxygen Delivery BiPAP Oxygen Flow Rate Exam Narrative: General: well appearing, appears stated age. HEENT: normocephalic, atraumatic. Mucous membranes moist. EOMI, PERRLA, bilateral sclera anicteric, no conjunctival injection. Neck supple without JVD, lymphadenopathy, or bruit. Respiratory: clear to ascultation bilaterally. No rales/rhonic/wheezes. Cardiovascular: Regular rate and rhythm, normal S1-S2 upon ascultation. No murmurs, rubs, or clicks. PMI is nondisplaced, capillary refill less than 3 second. Abdomen: Soft, round, no pulsatile masses, nondistended and nontender. No rebound, no guarding. No CVA tenderness, no hepatosplenomegaly. Bowel sounds present to all four quadrants. No high pitch or tinkling sounds, resonant to percussion. Extremities: No cyanosis, clubbing, or edema present. Pulses are palpable 2/2. Active ROM to all four extremities. Neuro: Alert and orientated x 4. PERRLA. Cranial nerves 2-12 intact without focal deficit. Skin: Warm, dry, and intact, without rash, erythema, or lesion. Psych: pleasant, cooperative, normal speech, normal affect, no hallucinations, no dysarthia H&P: Results Labs Labs: Short CBC 02/24/25 Range/Units 10:02 WBC 16.1 H (4.5-10.0) K/mm3 Hgb 11.4 L (12.0-15.0) g/dL Hct 35.5 L (37.0-47.0) % Plt Count 403 H (150-375) k/mm3 BMP 02/24/25 10:02 Sodium 138 Potassium 3.8 Chloride 104 Carbon Dioxide 24 BUN 16 Creatinine 1.40 H Glucose 130 H Calcium 10.0 Liver Function 02/24/25 Range/Units 10:02 Total Bilirubin 1.5 H (0.2-1.3) mg/dL AST 52 H (14-36) U/L ALT 60 H (6-35) U/L Alkaline Phosphatase 119 (38-126) U/L Albumin 4.3 (3.5-5.1) g/dL Urine 02/24/25 Range/Units 11:43 Urine Color Yellow (Yellow) Urine Appearance Clear (Clear) Urine pH 7.5 (5.0-9.0) Ur Specific [place] 1.011 (1.001-1.035) Urine Protein 1+ H (Negative) mg/dL Urine Glucose (UA) Negative (Negative) mg/dL Assessment and Plan Assessment and plan (1) (HFpEF) heart failure with preserved ejection fraction: Code(s): I50.30 - Unspecified diastolic (congestive) heart failure Status: Acute Assessment and Plan: Cardiology consult Echocardiogram pending IV Lasix b.i.d. Fluid restriction Daily weights (2) Pneumonia: Code(s): J18.9 - Pneumonia, unspecified organism Status: Acute Assessment and Plan: IV Rocephin and azithromycin DuoNebs Guaifenesin Blood cultures pending (3) Acute hypoxic respiratory failure: Code(s): J96.01 - Acute respiratory failure with hypoxia Status: Acute Assessment and Plan: Secondary to above Wean oxygen/BiPAP as able (4) Pleural effusion: Code(s): J90 - Pleural effusion, not elsewhere classified Status: Acute Assessment and Plan: Secondary to acute CHF Diurese Hold anticoagulation in case patient needs thoracentesis Chest x-ray in the morning to evaluate (5) Diabetes mellitus type 2 in obese: Code(s): E11.69 - Type 2 diabetes mellitus with other specified complication; E66.9 - Obesity, unspecified Status: Chronic Assessment and Plan: Diabetic diet for dinner SSI Accu-Opalks a.c. HS (6) HTN (hypertension): Qualifiers: Hypertension type: primary hypertension Qualified Code(s): I10 - Essential (primary) hypertension Code(s): I10 - Essential (primary) hypertension Status: Chronic Assessment and Plan: Continue Norvasc and metoprolol (7) Mixed hyperlipidemia: Code(s): E78.2 - Mixed hyperlipidemia Status: Acute Assessment and Plan: Continue Crestor (8) Open-angle glaucoma: Code(s): H40.10X0 - Unspecified open-angle glaucoma, stage unspecified Status: Acute Assessment and Plan: Continue home eye drops Quality VTE Prophylaxis VTE prophylaxis: mechanical ordered If No VTE Prophylaxis Answer both mechanical and pharmacologic: Reason no pharmacologic proph: medical contraindication Hospitalist MIPS Advance Care Plan I have confirmed that the patient's Advanced Care Plan is present, code status is documented, or surrogate decision maker is listed in patient medical record.: Yes Medication Reconciliation I have utilized all available resources to obtain, update and review the patients current medications (includes all prescriptions, OTC, herbals, cannabis, and nutritional supplements).: Yes
[2025-02-24] MEDS: cefTRIAXone 1 GM in SODIUM CHLORIDE 0.9% IV 50 ML 100 ML IVPB (12:25)
[2025-02-24] MEDS: AZITHROMYCIN IV 500 MG in SODIUM CHLORIDE 0.9% IV 250 ML IVPB (13:05)
[2025-02-24 13:47] LABS: CRP 4.0 mg/dL (<1.0); NT Pro B Type Natriuretic Pept 5390 pg/mL (19.9-100); Troponin I 0.018 ng/mL (0.000-0.034)
[2025-02-24] MEDS: IPRATROPIUM 0.5 MG/ALBUTEROL SULFATE 2.5 MG AMPUL.NEB 3 ML INHALATION (14:30)
--- NOTE | 2025-02-24 15:03 | ADMGEN ---
This patient, Stella Carroll, was admitted to IMU Room 200-01. Patient/family oriented to hospital policies and general routines including ID bracelet, bed and alarms, visiting hours, pain management, procedures, bathroom and other care routines, personal items, smoking policy, room service/diet, and visiting hours. Information on how to activate the Rapid Response Team has been discussed. Patient/Family are encouraged to report perceived risks to care and to ask questions if they do not understand what they are told or what they should do.
[2025-02-24 17:11] LABS: Troponin I 0.015 ng/mL (0.000-0.034)
[2025-02-24 17:30] LABS: Potassium 3.3 mmol/L (3.4-5.0)
[2025-02-24] MEDS: DOCUSATE SODIUM 100 MG CAPSULE PO (18:18)
[2025-02-24 19:46] LABS: Troponin I 0.016 ng/mL (0.000-0.034)
[2025-02-24] MEDS: FAMOTIDINE 20 MG/2 ML VIAL IV PUSH (20:33)
[2025-02-24] MEDS: guaiFENesin 12 HR 600 MG TABCR 1200 MG PO (20:33)
[2025-02-24] MEDS: DOXYCYCLINE HYCLATE 100 MG TABLET PO (22:22)
[2025-02-24] MEDS: APIXABAN 5 MG TABLET PO (22:22)
[2025-02-24] MEDS: GABAPENTIN 300 MG CAPSULE 600 MG PO (22:22)
[2025-02-24] MEDS: POTASSIUM CHLORIDE INJ 40 MEQ in SODIUM CHLORIDE 0.9% IV 500 ML 130 MEQ IVPB (22:22)
[2025-02-24] MEDS: LATANOPROST 0.005% OP SOLN 2.5 ML BTL 1 DROP EACH EYE (22:22)
[2025-02-25] VITALS (21 sets, daily range): BP systolic 100–132; BP diastolic 54–70; PULSE 72–94; RESP 16–22; TEMP 36.7–37.1; O2SAT 93–100
[2025-02-25 04:21] LABS: Hematocrit 32.0 % (37.0-47.0); Hemoglobin 10.4 g/dL (12.0-15.0); Immature Granulocyte Percent A 0.4 % (0-0.5); Lymphocytes Absolute Auto 1.34 K/mm3 (0.9-3.2); Mean Corpuscular HGB Conc 32.5 g/dl (32-36); Mean Corpuscular Hemoglobin 31.1 pg (26-34); Mean Corpuscular Volume 95.8 fl (80-100); Nucleated Red Blood Cells Absolute Auto 0.000 K/mm3 (0.0-0.012); Nucleated Red Blood Cells Perc 0.0 % (0.0-0.2); Platelet Count Result 357 k/mm3 (150-375); Red Blood Count 3.34 M/mm3 (4.2-5.4); White Blood Count 17.1 K/mm3 (4.5-10.0)
[2025-02-25] MEDS: ACETAMINOPHEN 325 MG TABLET 650 MG PO (04:44)
[2025-02-25 04:57] LABS: Anion Gap 9 mmol/L (4-12); Blood Urea Nitrogen 17 mg/dL (7-17); Calcium 9.6 mg/dL (8.4-10.2); Carbon Dioxide 26 mmol/L (22-30); Chloride 107 mmol/L (98-107); Estimated CRCL calculation 26 ml/min; Estimated Glomerular Filt Rate 34; Glucose 93 mg/dL (65-110); Potassium 3.8 mmol/L (3.4-5.0); Sodium 142 mmol/L (137-145)
[2025-02-25] MEDS: IPRATROPIUM 0.5 MG/ALBUTEROL SULFATE 2.5 MG AMPUL.NEB 3 ML INHALATION ×3 (08:06→19:44)
[2025-02-25] MEDS: guaiFENesin 12 HR 600 MG TABCR 1200 MG PO ×2 (08:51→21:20)
[2025-02-25] MEDS: AMIODARONE HCL 200 MG TABLET PO (08:51)
[2025-02-25] MEDS: ROSUVASTATIN 20 MG TABLET 40 MG PO (08:52)
[2025-02-25] MEDS: DOXYCYCLINE HYCLATE 100 MG TABLET PO ×2 (08:52→21:20)
[2025-02-25] MEDS: GABAPENTIN 300 MG CAPSULE 600 MG PO ×3 (08:52→18:19)
[2025-02-25] MEDS: METOPROLOL SUCCINATE EXT REL 50 MG TABCR PO (08:52)
[2025-02-25] MEDS: APIXABAN 5 MG TABLET PO ×2 (08:52→21:20)
[2025-02-25] MEDS: DOCUSATE SODIUM 100 MG CAPSULE PO ×2 (08:52→18:20)
[2025-02-25] MEDS: FUROSEMIDE INJ 40 MG/4 ML VIAL IV PUSH (08:57)
[2025-02-25] MEDS: FAMOTIDINE 20 MG/2 ML VIAL IV PUSH ×2 (08:57→21:20)
--- NOTE | 2025-02-25 11:37 | P.CONCA_ITS ---
Assessment and Plan Assessment and plan (1) (HFpEF) heart failure with preserved ejection fraction: Code(s): I50.30 - Unspecified diastolic (congestive) heart failure Status: Acute (2) Atrial flutter with rapid ventricular response: Code(s): I48.92 - Unspecified atrial flutter Status: Acute (3) Mixed hyperlipidemia: Code(s): E78.2 - Mixed hyperlipidemia Status: Acute Plan 69-year-old woman with chronic diastolic heart failure, paroxysmal atrial fibrillation, chronic hypoxic respiratory failure on home O2, diabetes, hypertension, hyperlipidemia, and obstructive sleep apnea presents with sudden worsening shortness of breath Acute on chronic diastolic heart failure -we will transition her to Lasix 20 mg p.o. daily -obtain magnesium level tomorrow morning -may need supplemental potassium on discharge given that she will be on Lasix 20 mg p.o. daily -it would appear that she has moderate pulmonary hypertension on echocardiogram which will be re-evaluated in the outpatient clinic -we discussed healthy lifestyle modifications to exclude excess salt and sodium in her diet Paroxysmal atrial fibrillation -continue amiodarone 200 mg p.o. daily -outpatient PFT given that she is on chronic amiodarone -continue metoprolol and Eliquis Hyperlipidemia -continue rosuvastatin 40 mg every evening Patient in follow-up in clinic. History of Present Illness History of Present Illness Consult date/time: 02/25/25 11:37 Requesting physician: Savana Salvador APRN Consult reason: congestive heart failure Reason For Visit: Acute Hypoxic Resp Failure/CHF/Pneumonia Narrative: 69-year-old woman with chronic diastolic heart failure, paroxysmal atrial fibrillation, chronic hypoxic respiratory failure on home O2, diabetes, hypertension, hyperlipidemia, and obstructive sleep apnea presents with sudden worsening shortness of breath. The worsening shortness of breath started about 1 day ago and was associated with lower extremity swelling and abdominal distention. Valve 5 months ago due to hypokalemia, patient was taken off Lasix and has been doing okay until 2 nights ago when she consume very salty meal and was followed by lower extremity swelling, abdominal distention, and shortness of breath. Denies any chest discomfort. Review of Systems 2 Cardiovascular: Cardiovascular: Reports as per HPI Respiratory: Respiratory: Reports as per HPI [facility] Past Medical History Medical History Positive colorectal cancer screening using Cologuard test HTN (hypertension) Atrial fibrillation/flutter Dx at [facility] during admission on 12/05/22-12/11/22 Obstructive sleep apnea Gout Diabetes mellitus type 2 in obese Mood disorder (HFpEF) heart failure with preserved ejection fraction Mitral regurgitation Herpes zoster Shingles Flare in October of 2022 Breast cancer screening by mammogram Obesity (BMI 30.0-34.9) GERD without esophagitis Migraine, unspecified, not intractable, without status migrainosus Mixed hyperlipidemia Unspecified sensorineural hearing loss Surgical History Surgical History H/O tubal ligation H/O section X2 History of cochlear implant Family History Family History Sibling Patient's sister is Mother Patient's mother is Other Family history of elevated blood lipids Family history of glaucoma Hypertension Social History Social History Social History: The patient is and lives with her . She has 2 children. She is retired from [employer]. She is a lifelong nonsmoker. She does not use any alcohol marijuana or illicit drugs. Code status full code Smoking status: Never smoker Alcohol intake: never Substance use: never Substance use type: does not use Do You Feel Safe in your Home?: Yes Lack of Transportation: No Lack of Food: Never True Current Housing: I Have Housing Concerned About Future Housing: No Difficulty Paying Gas/Electric Bills: No Difficulty Paying for Meds: No Currently Unemployed: No Education: High School Diploma/GED Difficulty w/ Childcare or Family Care: No Living arrangements: other Additional living arrangements comments: with sp Spiritual care concerns: No Meds Home Medications and Allergies Home Medications ?Medication ?Instructions ?Recorded ?Confirmed ?Type cholecalciferol (vitamin D3) 125 125 mcg PO DAILY 10/24/22 02/24/25 History mcg (5,000 unit) capsule magnesium oxide 400 mg (241.3 mg 400 mg PO QAM #30 tabs 11/20/22 02/24/25 Rx magnesium) tablet CPAP #1 ea 07/04/23 02/24/25 Rx apixaban 5 mg tablet (Eliquis) 5 mg PO Q12HR #60 tabs 08/06/23 02/24/25 Rx Nasal pillow mask for CPAP #1 ea 08/19/23 02/24/25 [facility] 08/21/23 02/24/25 Rx Plus Lancet) rosuvastatin 40 mg tablet 40 mg PO DAILY 02/14/24 02/24/25 History amlodipine 10 mg tablet 10 mg PO QAM #90 tabs 04/07/24 02/24/25 Rx fluticasone propionate 50 1 spray intranasal Q12H 05/06/24 02/24/25 History mcg/actuation nasal spray,suspension latanoprost 0.005 % eye drops 1 drp EACH EYE QPM 05/06/24 02/24/25 History ondansetron 4 mg disintegrating 4 mg PO Q6H PRN nausea and 07/25/24 02/24/25 Rx tablet vomiting #10 tabs [facility] 08/31/24 02/24/25 Rx Ultra Test strips) metoprolol succinate 50 mg 50 mg PO DAILY #90 tabs 09/23/24 02/24/25 Rx tablet,extended release 24 hr tirzepatide 2.5 mg/0.5 mL 2.5 mg (0.5 mL) subcut WEEKLY 4 11/03/24 02/24/25 Rx subcutaneous pen injector weeks #6 mL (Anika) gabapentin 600 mg tablet 600 mg PO TID #270 tabs 11/20/24 02/24/25 Rx metformin 500 mg tablet 500 mg PO BID #180 tabs 12/10/24 02/24/25 Rx omeprazole 20 mg capsule,delayed 20 mg PO DAILY #90 caps 12/23/24 02/24/25 Rx release allopurinol 100 mg tablet 200 mg (2 x 100 mg) PO DAILY #180 12/24/24 02/24/25 Rx tabs amiodarone 200 mg tablet (Pacerone) 200 mg PO DAILY #90 tabs 12/24/24 02/24/25 Rx Allergies Allergy/AdvReac Type Severity Reaction Status Date / Time No Known Allergies Allergy Verified 02/24/25 09:25 Vital Signs Vital Signs - 24 hr 02/24/25 11:46 02/24/25 12:01 02/24/25 12:16 Temperature Pulse Rate 80 81 78 Respiratory Rate 28 H 28 H 15 Blood Pressure 134/69 132/65 117/63 Pulse Oximetry 98 96 97 Oxygen Delivery Oxygen Flow Rate 02/24/25 12:31 02/24/25 12:46 02/24/25 13:01 Temperature Pulse Rate 81 82 82 Respiratory Rate 25 H 22 H 23 H Blood Pressure 134/67 123/64 126/68 Pulse Oximetry 97 97 96 Oxygen Delivery Oxygen Flow Rate 02/24/25 13:10 02/24/25 13:16 02/24/25 13:17 Temperature Pulse Rate 83 83 82 Respiratory Rate 24 H 25 H 23 H Blood Pressure 120/67 Pulse Oximetry 97 97 97 Oxygen Delivery BiPAP Oxygen Flow Rate 02/24/25 13:30 02/24/25 13:31 02/24/25 13:46 Temperature Pulse Rate 79 79 79 Respiratory Rate 14 18 14 Blood Pressure 101/69 102/62 Pulse Oximetry 96 95 95 Oxygen Delivery Oxygen Flow Rate 02/24/25 14:01 02/24/25 14:32 02/24/25 14:39 Temperature Pulse Rate 80 80 81 Respiratory Rate 25 H 27 H 28 H Blood Pressure 117/66 Pulse Oximetry 97 Oxygen Delivery Oxygen Flow Rate 02/24/25 15:00 02/24/25 15:44 02/24/25 16:00 Temperature 37.4 C Pulse Rate 89 84 Respiratory Rate 30 H 28 H Blood Pressure 145/56 H Pulse Oximetry 96 97 95 Oxygen Delivery BiPAP Nasal Cannula Oxygen Flow Rate 4 02/24/25 16:00 02/24/25 17:55 02/24/25 18:00 Temperature Pulse Rate 81 92 Respiratory Rate Blood Pressure Pulse Oximetry 93 Oxygen Delivery Nasal Cannula Oxygen Flow Rate 4 02/24/25 20:00 02/24/25 20:00 02/24/25 20:00 Temperature 37.2 C Pulse Rate 80 95 Respiratory Rate 22 H Blood Pressure 136/53 L Pulse Oximetry 95 93 Oxygen Delivery Nasal Cannula Oxygen Flow Rate 4 02/24/25 22:00 02/24/25 23:49 02/25/25 00:00 Temperature 37.1 C Pulse Rate 75 72 Respiratory Rate 22 H Blood Pressure 125/58 L Pulse Oximetry 92 94 Oxygen Delivery Nasal Cannula Oxygen Flow Rate 4 02/25/25 00:00 02/25/25 02:00 02/25/25 02:45 Temperature Pulse Rate 78 80 80 Respiratory Rate 16 Blood Pressure Pulse Oximetry 99 Oxygen Delivery Nasal Cannula Oxygen Flow Rate 4 02/25/25 03:36 02/25/25 04:00 02/25/25 04:00 Temperature 37.1 C Pulse Rate 80 79 Respiratory Rate 22 H Blood Pressure 128/56 L Pulse Oximetry 93 100 Oxygen Delivery Nasal Cannula Oxygen Flow Rate 4 02/25/25 06:00 02/25/25 08:00 02/25/25 08:00 Temperature Pulse Rate 78 87 Respiratory Rate Blood Pressure Pulse Oximetry 95 Oxygen Delivery Nasal Cannula Oxygen Flow Rate 2 02/25/25 08:07 02/25/25 08:08 02/25/25 08:10 Temperature 37.0 C Pulse Rate 92 80 Respiratory Rate 20 18 Blood Pressure 127/54 L Pulse Oximetry 98 93 Oxygen Delivery Nasal Cannula Oxygen Flow Rate 2 02/25/25 08:51 02/25/25 08:52 02/25/25 10:00 Temperature Pulse Rate 87 87 91 Respiratory Rate Blood Pressure Pulse Oximetry Oxygen Delivery Oxygen Flow Rate Exam 2 Const: General: comfortable HENMT: Mouth: Yes moist mucous membranes Eyes: EOM: EOMs intact bilaterally Neck: Neck: no JVD Resp: Effort & Inspection: normal respiratory effort Auscultation: clear to auscultation bilaterally Cardio: Rate: regular rate Rhythm: regular rhythm GI: GI Palp: Yes Soft to palpation Extrem: General: no pedal edema Results Labs and Meds 02/25/25 03:39 02/25/25 03:39 Lab results: Cardiac Enzymes 02/24/25 02/24/25 02/24/25 Range/Units 10:02 16:09 18:59 Troponin I 0.018 0.015 0.016 (0.000-0.034) ng/mL CBC 02/25/25 Range/Units 03:39 WBC 17.1 H (4.5-10.0) K/mm3 RBC 3.34 L (4.2-5.4) M/mm3 Hgb 10.4 L (12.0-15.0) g/dL Hct 32.0 L (37.0-47.0) % Plt Count 357 (150-375) k/mm3 Lymph # (Auto) 1.34 (0.9-3.2) K/mm3 [place] # (Auto) 0.9 H (0.1-0.6) K/mm3 Eos # (Auto) 0.1 (0-0.3) K/mm3 Baso # (Auto) 0.1 (0.0-0.1) K/mm3 Comprehensive Metabolic Panel 02/24/25 02/25/25 Range/Units 16:09 03:39 Sodium 142 (137-145) mmol/L Potassium 3.3 L 3.8 (3.4-5.0) mmol/L Chloride 107 (98-107) mmol/L Carbon Dioxide 26 (22-30) mmol/L BUN 17 (7-17) mg/dL Creatinine 1.52 H (0.7-1.0) mg/dL Glucose 93 (65-110) mg/dL Calcium 9.6 (8.4-10.2) mg/dL Intake and Output 02/24/25 02/25/25 02/25/25 23:59 07:59 15:59 Intake Total 440 520 240 Output Total 650 500 Balance -210 20 240 Intake: IV 520 Potassium Chloride Inj 40 meq 520 In Sodium Chloride 0.9% IV 500 ml @ 130 mls/hr IVPB ONCE ONE Rx#:[id number] Oral 440 240 Output: Urine 650 Catheter Urine 500 External/Condom 500 Patient Weight 02/25/25 23:59 Weight 65.3 kg
--- NOTE | 2025-02-25 14:09 | P.PNIM_ITS ---
Progress Note: A&P Assessment and Plan (1) (HFpEF) heart failure with preserved ejection fraction: Code(s): I50.30 - Unspecified diastolic (congestive) heart failure Status: Acute Assessment and Plan: Contineu PO lasix per cardology continue potassium chloride supplementation Fluid restriction Daily weights cardiology following (2) Pneumonia: Code(s): J18.9 - Pneumonia, unspecified organism Status: Acute Assessment and Plan: IV Rocephin and Doxycycline DuoNebs Guaifenesin Blood cultures pending (3) Acute hypoxic respiratory failure: Code(s): J96.01 - Acute respiratory failure with hypoxia Status: Acute Assessment and Plan: Secondary to above S/p BiPAP, now on nasal cannula oxygen (4) Pleural effusion: Code(s): J90 - Pleural effusion, not elsewhere classified Status: Acute Assessment and Plan: continue above care (5) Diabetes mellitus type 2 in obese: Code(s): E11.69 - Type 2 diabetes mellitus with other specified complication; E66.9 - Obesity, unspecified Status: Chronic Assessment and Plan: Diabetic diet for dinner SSI Accu-Fish a.c. HS (6) HTN (hypertension): Qualifiers: Hypertension type: primary hypertension Qualified Code(s): I10 - Essential (primary) hypertension Code(s): I10 - Essential (primary) hypertension Status: Chronic Assessment and Plan: Continue Norvasc and metoprolol (7) Mixed hyperlipidemia: Code(s): E78.2 - Mixed hyperlipidemia Status: Acute Assessment and Plan: Continue Crestor (8) Open-angle glaucoma: Code(s): H40.10X0 - Unspecified open-angle glaucoma, stage unspecified Status: Acute Assessment and Plan: Continue home eye drops Plan Afib, paroxysmal Continue Amiodarone, metoprolol and Eliquis cardiology following HLD continue Cretor DVT prophylaxis on Eliquis Subjective Date/time seen: 02/25/25 14:09 Interval history: Comfortable at bedside Review of Systems Review of Systems: 12 systems were reviewed and are negativ e except for as per HPI. Exam Narrative: General: well appearing, appears stated age. HEENT: normocephalic, atraumatic. Mucous membranes moist. EOMI, PERRLA, bilateral sclera anicteric, no conjunctival injection. Neck supple without JVD, lymphadenopathy, or bruit. Respiratory: clear to ascultation bilaterally. No rales/rhonic/wheezes. Cardiovascular: Regular rate and rhythm, normal S1-S2 upon ascultation. No murmurs, rubs, or clicks. PMI is nondisplaced, capillary refill less than 3 second. Abdomen: Soft, round, no pulsatile masses, nondistended and nontender. No rebound, no guarding. No CVA tenderness, no hepatosplenomegaly. Bowel sounds present to all four quadrants. No high pitch or tinkling sounds, resonant to percussion. Extremities: No cyanosis, clubbing, or edema present. Pulses are palpable 2/2. Active ROM to all four extremities. Neuro: Alert and orientated x 4. PERRLA. Cranial nerves 2-12 intact without focal deficit. Skin: Warm, dry, and intact, without rash, erythema, or lesion. Psych: pleasant, cooperative, normal speech, normal affect, no hallucinations, no dysarthia Objective Data Vital Signs Vital Signs: Vital Signs - 24 hr 02/24/25 14:32 02/24/25 14:39 02/24/25 15:00 Temperature Pulse Rate 80 81 89 Respiratory Rate 27 H 28 H 30 H Blood Pressure Pulse Oximetry 96 Oxygen Delivery BiPAP Oxygen Flow Rate 02/24/25 15:44 02/24/25 16:00 02/24/25 16:00 Temperature 99.3 F Pulse Rate 84 81 Respiratory Rate 28 H Blood Pressure 145/56 H Pulse Oximetry 97 95 Oxygen Delivery Nasal Cannula Oxygen Flow Rate 02/24/25 17:55 02/24/25 18:00 02/24/25 20:00 Temperature 98.9 F Pulse Rate 92 80 Respiratory Rate 22 H Blood Pressure 136/53 L Pulse Oximetry 93 95 Oxygen Delivery Nasal Cannula Oxygen Flow Rate 02/24/25 20:00 02/24/25 20:00 02/24/25 22:00 Temperature Pulse Rate 95 75 Respiratory Rate Blood Pressure Pulse Oximetry 93 Oxygen Delivery Nasal Cannula Oxygen Flow Rate 02/24/25 23:49 02/25/25 00:00 02/25/25 00:00 Temperature 98.8 F Pulse Rate 72 78 Respiratory Rate 22 H Blood Pressure 125/58 L Pulse Oximetry 92 94 Oxygen Delivery Nasal Cannula Oxygen Flow Rate 4 02/25/25 02:00 02/25/25 02:45 02/25/25 03:36 Temperature Pulse Rate 80 80 Respiratory Rate 16 Blood Pressure Pulse Oximetry 99 93 Oxygen Delivery Nasal Cannula Nasal Cannula Oxygen Flow Rate 4 4 02/25/25 04:00 02/25/25 04:00 02/25/25 06:00 Temperature 98.7 F Pulse Rate 80 79 78 Respiratory Rate 22 H Blood Pressure 128/56 L Pulse Oximetry 100 Oxygen Delivery Oxygen Flow Rate 02/25/25 08:00 02/25/25 08:00 02/25/25 08:07 Temperature Pulse Rate 87 92 Respiratory Rate 20 Blood Pressure Pulse Oximetry 95 Oxygen Delivery Nasal Cannula Oxygen Flow Rate 2 02/25/25 08:08 02/25/25 08:10 02/25/25 08:15 Temperature 98.6 F Pulse Rate 80 90 Respiratory Rate 18 20 Blood Pressure 127/54 L Pulse Oximetry 98 93 Oxygen Delivery Nasal Cannula Oxygen Flow Rate 2 02/25/25 08:51 02/25/25 08:52 02/25/25 10:00 Temperature Pulse Rate 87 87 91 Respiratory Rate Blood Pressure Pulse Oximetry Oxygen Delivery Oxygen Flow Rate 02/25/25 13:45 02/25/25 13:53 Temperature Pulse Rate 92 94 Respiratory Rate 18 18 Blood Pressure Pulse Oximetry Oxygen Delivery Oxygen Flow Rate Intake/Output Intake/Output: Intake & Output 02/22/25 02/23/25 02/24/25 02/25/25 23:59 23:59 23:59 23:59 Intake Total 740 1000 Output Total 1150 500 Balance -410 500 Meds/Results Medications: Active Medications Generic Name Dose Route Start Last Admin Trade Name Freq PRN Reason Stop Dose Admin Acetaminophen 650 mg 02/24/25 12:37 02/25/25 04:44 Acetaminophen 325 Mg Tablet PO 650 mg Q4H PRN Administration Mild Pain (1-3) or Fever Albuterol/Ipratropium 3 ml 02/24/25 14:00 02/25/25 13:45 Ipratropium 0.5 Mg/Albuterol Sulfate 2.5 Mg Ampul.Neb 3 Ml INHALATION 3 ml Q6HRT CARROLL Administration Allopurinol 200 mg 02/25/25 09:00 02/25/25 08:52 Allopurinol 100 Mg Tablet PO 200 mg DAILY CARROLL Administration Amiodarone HCl 200 mg 02/25/25 09:00 02/25/25 08:51 Amiodarone Hcl 200 Mg Tablet PO 200 mg DAILY CARROLL Administration Amlodipine Besylate 10 mg 02/25/25 09:00 02/25/25 08:52 Amlodipine Besylate 10 Mg Tablet PO 10 mg QAM CARROLL Administration Apixaban 5 mg 02/24/25 21:00 02/25/25 08:52 Apixaban 5 Mg Tablet PO 5 mg Q12HR CARROLL Administration Dextrose 12.5 gm 02/24/25 12:40 Dextrose 50% 25 Gm/50 Ml Syringe IV PUSH PRN PRN Hypoglycemia Protocol Docusate Sodium 100 mg 02/24/25 17:00 02/25/25 08:52 Docusate Sodium 100 Mg Capsule PO 100 mg BID CARROLL Administration Doxycycline Hyclate 100 mg 02/24/25 21:15 02/25/25 08:52 Doxycycline Hyclate 100 Mg Tablet PO 100 mg Q12HR CARROLL Administration Famotidine 20 mg 02/24/25 21:00 02/25/25 08:57 Famotidine 20 Mg/2 Ml Vial IV PUSH 20 mg Q12HR CARROLL Administration Furosemide 20 mg 02/26/25 09:00 Furosemide 20 Mg Tablet PO DAILY CARROLL Gabapentin 600 mg 02/24/25 21:15 02/25/25 08:52 Gabapentin 300 Mg Capsule PO 600 mg TID CARROLL Administration Glucagon 1 mg 02/24/25 12:40 Glucagon For Inj 1 Mg Vial IM PRN PRN Hypoglycemia Protocol Glucose 15 gm 02/24/25 12:40 Glucose Oral Gel 15 Gm Of Glucse In 37.5 Gm Tube PO PRN PRN Hypoglycemia Protocol Guaifenesin 1,200 mg 02/24/25 21:00 02/25/25 08:51 Guaifenesin 12 Hr 600 Mg Tabcr PO 1,200 mg Q12HR CARROLL Administration Ceftriaxone Sodium 1 gm/ 50 mls @ 100 mls/hr 02/24/25 12:00 02/24/25 13:01 Sodium Chloride IVPB Infused Q24H CARROLL Infusion Dextrose 1,000 mls @ 100 mls/hr 02/24/25 12:40 Dextrose 5% 1,000 Ml IVPB PRN PRN Hypoglycemia Protocol Insulin Aspart 2 - 5 units 02/24/25 17:00 02/25/25 12:28 Insulin Aspart (*Bkc) 100 Units/Ml SUB-Q Not Given TID[facility] Protocol Insulin Aspart 1 - 2 units 02/24/25 21:00 02/24/25 20:11 Insulin Aspart (*Bkc) 100 Units/Ml SUB-Q Not Given HS CARROLL Protocol Latanoprost 1 drop 02/24/25 21:15 02/24/25 22:22 Latanoprost 0.005% Op Soln 2.5 Ml Btl EACH EYE 1 drop QPM CARROLL Administration Metoprolol Succinate 50 mg 02/25/25 09:00 02/25/25 08:52 Metoprolol Succinate Ext Rel 50 Mg Tabcr PO 50 mg DAILY CARROLL Administration Perflutren Lipid Microsphere 0 ml 02/24/25 12:40 Perflutren Lipid Microspheres 1.5 Ml Vial Diluted To 10 Ml Total Volume IV PUSH 02/27/25 12:42 ONCE PRN adequate visualization Protocol Rosuvastatin Calcium 40 mg 02/25/25 09:00 02/25/25 08:52 Rosuvastatin 20 Mg Tablet PO 40 mg DAILY CARROLL Administration Radiology Results: ITS Impressions Chest/Abdomen/Pelvis CTA 02/24/25 11:21 IMPRESSION: Increased size of the pulmonary arteries, concerning for pulmonary hypertension. Bilateral pleural effusions causing compressive atelectasis. Scattered areas of groundglass opacities in both lungs, can represent pulmonary edema versus pneumonia in appropriate clinical settings.. Mosaic attenuation of the lungs, likely obstructive small airway disease. Clinical correlation is recommended. Chest X-Ray 02/24/25 13:16 Impression: 1: Bibasilar airspace disease may represent atelectasis or developing pneumonia. 2: Small pleural effusions. Labs Labs: Laboratory Results - last 24 hr 02/24/25 02/24/25 02/24/25 16:02 16:09 18:59 WBC RBC Hgb Hct MCV MCH MCHC RDW Plt Count MPV Immature Gran % (Auto) Neut % (Auto) Lymph % (Auto) [place] % (Auto) Eos % (Auto) Baso % (Auto) Lymph # (Auto) [place] # (Auto) Eos # (Auto) Baso # (Auto) Abs Immat Gran (auto) Absolute Neuts (auto) Absolute Nucleated RBC Nucleated RBC % Sodium Potassium 3.3 L Chloride Carbon Dioxide Anion Gap BUN Creatinine Estim Creat Clear Calc Estimated GFR Glucose POC Capillary Glucose 95 Calcium Troponin I 0.015 0.016 02/24/25 02/25/25 02/25/25 20:09 03:39 07:18 WBC 17.1 H RBC 3.34 L Hgb 10.4 L Hct 32.0 L MCV 95.8 MCH 31.1 MCHC 32.5 RDW 15.9 H Plt Count 357 MPV 11.3 H Immature Gran % (Auto) 0.4 Neut % (Auto) 85.7 H Lymph % (Auto) 7.8 L [place] % (Auto) 5.2 Eos % (Auto) 0.4 Baso % (Auto) 0.5 Lymph # (Auto) 1.34 [place] # (Auto) 0.9 H Eos # (Auto) 0.1 Baso # (Auto) 0.1 Abs Immat Gran (auto) 0.07 H Absolute Neuts (auto) 14.7 H Absolute Nucleated RBC 0.000 Nucleated RBC % 0.0 Sodium 142 Potassium 3.8 Chloride 107 Carbon Dioxide 26 Anion Gap 9 BUN 17 Creatinine 1.52 H Estim Creat Clear Calc 26 Estimated GFR 34 L Glucose 93 POC Capillary Glucose 104 99 Calcium 9.6 Troponin I 02/25/25 11:36 WBC RBC Hgb Hct MCV MCH MCHC RDW Plt Count MPV Immature Gran % (Auto) Neut % (Auto) Lymph % (Auto) [place] % (Auto) Eos % (Auto) Baso % (Auto) Lymph # (Auto) [place] # (Auto) Eos # (Auto) Baso # (Auto) Abs Immat Gran (auto) Absolute Neuts (auto) Absolute Nucleated RBC Nucleated RBC % Sodium Potassium Chloride Carbon Dioxide Anion Gap BUN Creatinine Estim Creat Clear Calc Estimated GFR Glucose POC Capillary Glucose 99 Calcium Troponin I Quality VTE Prophylaxis VTE prophylaxis: mechanical ordered
[2025-02-25] MEDS: cefTRIAXone 1 GM in SODIUM CHLORIDE 0.9% IV 50 ML 100 ML IVPB (14:33)
[2025-02-25] MEDS: PANTOPRAZOLE SODIUM IV 40 MG VIAL IV PUSH (21:20)
[2025-02-25] MEDS: LATANOPROST 0.005% OP SOLN 2.5 ML BTL 1 DROP EACH EYE (21:21)
[2025-02-26] VITALS (9 sets, daily range): BP systolic 107; BP diastolic 68; PULSE 76–88; RESP 14–20; TEMP 36.6; O2SAT 92–96
[2025-02-26] MEDS: IPRATROPIUM 0.5 MG/ALBUTEROL SULFATE 2.5 MG AMPUL.NEB 3 ML INHALATION ×3 (01:19→15:16)
[2025-02-26 05:28] LABS: Hematocrit 30.4 % (37.0-47.0); Hemoglobin 9.6 g/dL (12.0-15.0); Immature Granulocyte Percent A 0.6 % (0-0.5); Lymphocytes Absolute Auto 1.29 K/mm3 (0.9-3.2); Mean Corpuscular HGB Conc 31.6 g/dl (32-36); Mean Corpuscular Hemoglobin 30.4 pg (26-34); Mean Corpuscular Volume 96.2 fl (80-100); Nucleated Red Blood Cells Absolute Auto 0.000 K/mm3 (0.0-0.012); Nucleated Red Blood Cells Perc 0.0 % (0.0-0.2); Platelet Count Result 358 k/mm3 (150-375); Red Blood Count 3.16 M/mm3 (4.2-5.4); White Blood Count 16.0 K/mm3 (4.5-10.0)
[2025-02-26 05:33] LABS: Alanine Aminotransferase 62 U/L (6-35); Albumin Level 3.5 g/dL (3.5-5.1); Alkaline Phosphatase 101 U/L (38-126); Anion Gap 8 mmol/L (4-12); Aspartate Amino Transferase 61 U/L (14-36); Bilirubin,Total 0.6 mg/dL (0.2-1.3); Blood Urea Nitrogen 22 mg/dL (7-17); Calcium 9.6 mg/dL (8.4-10.2); Carbon Dioxide 28 mmol/L (22-30); Chloride 105 mmol/L (98-107); Estimated CRCL calculation 23 ml/min; Estimated Glomerular Filt Rate 29; Glucose 100 mg/dL (65-110); Magnesium 2.4 mg/dL (1.6-2.3); Potassium 3.1 mmol/L (3.4-5.0); Sodium 141 mmol/L (137-145); Total Protein 6.4 g/dL (6.3-8.2)
--- NOTE | 2025-02-26 06:37 | PC.NURSE ---
This patient, Stella Carroll, was transferred to [ 330] on 02/26/25 at 0638. Personal belongings sent with patient. Report given to [ David]. Appropriate documentation sent with patient.
--- NOTE | 2025-02-26 07:26 | ADMGEN ---
This patient, Stella Carroll, was admitted to 3 [facility] Surg Room 330-02. Patient/family oriented to hospital policies and general routines including ID bracelet, bed and alarms, visiting hours, pain management, procedures, bathroom and other care routines, personal items, smoking policy, room service/diet, and visiting hours. Information on how to activate the Rapid Response Team has been discussed. Patient/Family are encouraged to report perceived risks to care and to ask questions if they do not understand what they are told or what they should do.
[2025-02-26] MEDS: guaiFENesin 12 HR 600 MG TABCR 1200 MG PO (09:23)
[2025-02-26] MEDS: DOCUSATE SODIUM 100 MG CAPSULE PO (09:23)
[2025-02-26] MEDS: APIXABAN 5 MG TABLET PO (09:23)
[2025-02-26] MEDS: GABAPENTIN 300 MG CAPSULE 600 MG PO ×2 (09:23→14:29)
[2025-02-26] MEDS: DOXYCYCLINE HYCLATE 100 MG TABLET PO (09:23)
[2025-02-26] MEDS: METOPROLOL SUCCINATE EXT REL 50 MG TABCR PO (09:24)
[2025-02-26] MEDS: ROSUVASTATIN 20 MG TABLET 40 MG PO (09:24)
[2025-02-26] MEDS: PANTOPRAZOLE SODIUM IV 40 MG VIAL IV PUSH (09:24)
[2025-02-26] MEDS: FUROSEMIDE 20 MG TABLET PO (09:24)
[2025-02-26] MEDS: FAMOTIDINE 20 MG/2 ML VIAL IV PUSH (09:24)
[2025-02-26] MEDS: AMIODARONE HCL 200 MG TABLET PO (09:26)
[2025-02-26] MEDS: POTASSIUM CHLORIDE 20 MEQ PACKET (FOR LIQUID) 40 MEQ PO (10:55)
[2025-02-26] MEDS: POTASSIUM CHLORIDE INJ 40 MEQ in SODIUM CHLORIDE 0.9% IV 500 ML 130 MEQ IVPB (10:55)
--- NOTE | 2025-02-26 14:17 | HOMEO2EVAL ---
Evaluation was performed at [facility] Home Oxygen Evaluation RC: Home Oxygen (O2) Evaluation Start: 02/26/25 11:46 Freq: ONCE Status: Active Protocol: RPE Activity Type Activity Date Activity User E-sign Co-sign Detail Recorded Client Recorded Date Recorded By Document 02/26/25 14:00 NATTY [email or web address] 02/26/25 14:17 NATTY Document 02/26/25 14:05 [email or web address] [email or web address] 02/26/25 14:17 NATTY Document 02/26/25 14:15 [email or web address] [email or web address] 02/26/25 14:17 NATTY 02/26/25 02/26/25 02/26/25 14:00 14:05 14:15 Home O2 Evaluation [Oxygen] -Test Phase Resting Exercise Resting -Oxygen Delivery Room Air Room Air Room Air [Pulse Oximetry] -Pulse Oximetry (90-100 %) 95 92 96 [Pulse Rate] -Pulse Rate (60-100 beats/min) 80 88 83 [Exercise] -Ambulation Distance (feet) 200 -Ambulation Distance (meters) 60.95 [Comments] -Home Oxygen Evaluation Comments No home O2 needed at this time. [Charges] -Evaluation Charges O2 Evaluation by Pulmonary
--- NOTE | 2025-02-26 14:17 | PCRCNOTE ---
Home O2 eval done, pt does not requires any home O2. RN notified
--- NOTE | 2025-02-26 14:44 | PM.DS ---
DS: Admitting Diagnosis Discharge Date 02/26/25 Admitting Diagnosis Shortness of breath DS: Discharge Diagnosis Discharge Diagnosis (1) CHF (congestive heart failure): Code(s): I50.9 - Heart failure, unspecified Status: Acute (2) Pneumonia: Code(s): J18.9 - Pneumonia, unspecified organism Status: Acute DS: Summary Hospital Course Hospital Course: 69-year-old female with past medical history of our failure with preserved ejection fraction, AYLEEN, diabetes type 2, hypertension hyperlipidemia presents the hospital with shortness of breath. She states that it started about 2 days ago. Patient's breathing has improved since receiving IV Lasix in ED and she is able to tolerate 4 L nasal cannula. Patient is on home oxygen. Patient denies nausea vomiting fever chills. Lab work in the ED shows leukocytosis at 16.1, anemia 11.4, ABG shows pH of 7.45, pCO2 of 31, PO2 of 64, bicarb of 22, creatinine of 1.4 which is around baseline, bilirubin of 1.5, AST of 52, ALT of 60 which are lower than baseline, troponin and BNP are pending, UA is negative for infection, influenza A/B, RSV, COVID negative. Chest x-ray shows Bibasilar airspace disease may represent edema, pneumonia and/or atelectasis. Chest abdomen pelvis show Increased size of the pulmonary arteries, concerning for pulmonary hypertension, bilateral pleural effusions causing compressive atelectasis. Scattered areas of groundglass opacities in both lungs, can represent pulmonary edema versus pneumonia in appropriate clinical settings, and mosaic attenuation of the lungs, likely obstructive small airway disease. Patient is being admitted for acute CHF patient was managed for Acute hypoxemic respiaatory failure, started on supplemental oxygen and home oxygen eval done and patient will dsicharge on oxygen. Managed for pneumonia and CHF exacerbation. Discharged on Augmentin and Doxycycline 5 more days. Patient noted her Lasix was held due to hypokalemia for months, and chest imaging showed bilateral pleural effusion, thus patient was placed on lasix, discharged back on her Lasix 20mg daily and increased her KCl from 20mEq bid to 40mEq bid. ECHo showed severe pulm hypertension, cardiology evaluated adn noted he will follow up outpatient F/u with PCP in 3-5 days F/u with Cardiology as instructed Time Spent with Patient Time attestation: Total time spent providing and/or coordinating discharge services: DS: Data Data Completed and Pending Labs on day of discharge: Labs from last 24 hours 02/26/25 02/26/25 02/25/25 12:05 05:03 21:08 WBC 16.0 H RBC 3.16 L Hgb 9.6 L Hct 30.4 L MCV 96.2 MCH 30.4 MCHC 31.6 L RDW 15.8 H Plt Count 358 MPV 11.0 H Immature Gran % (Auto) 0.6 H Neut % (Auto) 83.2 H Lymph % (Auto) 8.1 L [place] % (Auto) 5.8 Eos % (Auto) 1.6 Baso % (Auto) 0.7 Lymph # (Auto) 1.29 [place] # (Auto) 0.9 H Eos # (Auto) 0.3 Baso # (Auto) 0.1 Abs Immat Gran (auto) 0.10 H Absolute Neuts (auto) 13.3 H Absolute Nucleated RBC 0.000 Nucleated RBC % 0.0 Sodium 141 Potassium 3.1 L Chloride 105 Carbon Dioxide 28 Anion Gap 8 BUN 22 H Creatinine 1.74 H Estim Creat Clear Calc 23 Estimated GFR 29 L Glucose 100 POC Capillary Glucose 80 154 H Calcium 9.6 Magnesium 2.4 H Total Bilirubin 0.6 AST 61 H ALT 62 H Alkaline Phosphatase 101 Total Protein 6.4 Albumin 3.5 02/25/25 15:29 WBC RBC Hgb Hct MCV MCH MCHC RDW Plt Count MPV Immature Gran % (Auto) Neut % (Auto) Lymph % (Auto) [place] % (Auto) Eos % (Auto) Baso % (Auto) Lymph # (Auto) [place] # (Auto) Eos # (Auto) Baso # (Auto) Abs Immat Gran (auto) Absolute Neuts (auto) Absolute Nucleated RBC Nucleated RBC % Sodium Potassium Chloride Carbon Dioxide Anion Gap BUN Creatinine Estim Creat Clear Calc Estimated GFR Glucose POC Capillary Glucose 107 H Calcium Magnesium Total Bilirubin AST ALT Alkaline Phosphatase Total Protein Albumin Discharge Plan Discharge Attending physician on discharge: Aviva Cisneros Consulting providers: Fransisco Heredia Discharging Clinician: Aviva Cisneros Anticipated Discharge Date/Time: 02/26/25 14:24 Patient Disposition: Home Activity: as tolerated Diet: as tolerated and heart healthy Patient Instructions: Antibiotic Form Patient Language: French Stand Alone Forms: General Discharge Information Follow-up/Referrals: Tio Shea MD [Primary Care Provider] - (F/u with PCP in 3-5 days ) Discharge Medications: New amoxicillin-pot clavulanate 875-125 mg tablet 1 tablet PO Q12H 5 Days Qty: 10 0RF doxycycline hyclate 100 mg tablet 100 mg PO BID 5 Days Qty: 10 0RF potassium chloride [K-Tab] 20 mEq tablet extended release 40 meq PO BID 30 Days Qty: 120 0RF furosemide [Lasix] 20 mg tablet 20 mg PO DAILY 30 Days Qty: 30 0RF Continued cholecalciferol (vitamin D3) 125 mcg (5,000 unit) capsule 125 mcg PO DAILY (DME) Nasal pillow mask for CPAP See Rx Instructions .Route .MEDSUPPLY Qty: 1 0RF Rx Instructions: As directed latanoprost 0.005 % drops 1 drp EACH EYE QPM fluticasone propionate 50 mcg/actuation spray,suspension 1 spray intranasal Q12H gabapentin 600 mg tablet 600 mg PO TID Qty: 270 3RF ondansetron 4 mg tablet,disintegrating 4 mg PO Q6H PRN (Reason: nausea and vomiting) Qty: 10 0RF magnesium oxide 400 mg (241.3 mg magnesium) Tablet 400 mg PO QAM Qty: 30 0RF rosuvastatin 40 mg tablet 40 mg PO DAILY (DME) CPAP See Rx Instructions .Route .MEDSUPPLY Qty: 1 0RF Rx Instructions: Resmed AirSense 11 AutoPAP 5-15 cm H2O, CPAP mask/filters/tubing and humidifier chamber. Eliquis 5 mg tablet 5 mg PO Q12HR Qty: 60 1RF (DME) lancets [OneTouch Delica Plus Lancet] 30 gauge misc See Rx Instructions .Route Qty: 200 3RF Rx Instructions: Use to check BS TID amlodipine 10 mg tablet 10 mg PO QAM Qty: 90 3RF (DME) OneTouch Ultra Test Strip See Rx Instructions .ROUTE .COMPLEX Qty: 100 3RF Dose Instruction: USE TO CHECK BLOOD SUGAR DAILY Rx Instructions: USE TO CHECK BLOOD SUGAR daily Patient is not on insulin and checks sugars daily metoprolol succinate 50 mg tablet extended release 24 hr 50 mg PO DAILY Qty: 90 1RF Mounjaro 2.5 mg/0.5 mL pen injector 2.5 mg subcut WEEKLY 28 Days Qty: 6 3RF metformin 500 mg tablet 500 mg PO BID Qty: 180 1RF omeprazole 20 mg capsule,delayed release(DR/EC) 20 mg PO DAILY Qty: 90 1RF allopurinol 100 mg tablet 200 mg PO DAILY Qty: 180 0RF amiodarone [Pacerone] 200 mg tablet 200 mg PO DAILY Qty: 90 0RF Date of admission: 02/24/25 13:03 Primary Care Provider: Tio Shea Admitting Provider: Severo Arguelles Attending physician on admission: Severo Arguelles Condition: Stable
== END 2025-02-26 16:15 | disposition home or self-care (01) | DRG 291 ==
LOC: ANHED 12:13 → ANHIMU 14:04 → ANH3MEDSUR 02-26 14:25 → ANHIMU 03-01 10:22
PROVIDERS: Nurse Practitioner Gerontology; Admitting Provider Family Medicine; Emergency Provider Emergency Medicine; PCP Family Medicine; Visit Provider Internal Medicine
DX: I11.0 Hypertensive heart disease with heart failure (principal); I50.33 Acute on chronic diastolic (congestive) heart failure; J18.9 Pneumonia, unspecified organism; J96.21 Acute and chronic respiratory failure with hypoxia; K21.9 Gastro-esophageal reflux disease without esophagitis; E78.2 Mixed hyperlipidemia; E11.9 Type 2 diabetes mellitus without complications; E87.6 Hypokalemia; G47.33 Obstructive sleep apnea (adult) (pediatric); H40.10X0 Unspecified open-angle glaucoma, stage unspecified; I48.0 Paroxysmal atrial fibrillation; Z20.822 Contact with and (suspected) exposure to COVID-19; Z99.81 Dependence on supplemental oxygen
CPT/HCPCS: 36415; 36600; 71045; 71275; 74174; 80048; 80053; 81001; 82805; 82948; 83605; 83735; 83880; 84132; 84484; 85018; 85025; 85610; 85730; 86140; 87040; 87637; 93005; 93308; 94002; 94618; 94640; 96365; 96375; 99285; A9270; J0456; J0696; J1938; J2470; J3480; J7040; J7050; Q9967

== ENCOUNTER 2025-03-11 10:47 | Outpatient (CLI) | payer MEDICARE, SELFPAY ==
--- OUTSIDE RECORDS SUMMARY | 2025-03-11 10:51 | XMS_ITS | Clinical Summary ---
Author Organization [facility] Address [address] [place] [address] Care Team Providers Care Cook 3 Pastry Name Role Phone Tio Shea MD Primary Care Provider [phone] [phone] Allergies No known active allergies Medications omeprazole [...] Date At risk for amiodarone toxicity with retirement u se 01/29/2023 Chronic anticoagulation 01/29/2023 Hypertension [...] Encounters Date Type Department Care Team Description 02/26/2025 Orders Only [facility] Medical Group Cardiology [address] [place] [address] Kamar Handy MD from Last 3 Months Medical History Medical [...] on file Legal Sex Female 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 Gender Identity Not on file Sexual Orientation Not on file Obstetrics History Last Filed Vital Signs Vital Sign Reading Time Taken Comments Blood Pressure 136/74 07/23/2024 2:44 PM FORM WORKER Pulse 84 07/23/2024 2:44 PM FORM WORKER Temperature 36.8 C (98.3 F) 12/11/2022 4:09 AM CDT Respiratory Rate 18 12/11/2022 11:30 AM CDT Oxygen Saturation 93% 07/23/2024 2:44 PM FORM WORKER Inhaled Oxygen Concentration - - Weight 68 kg (150 lb) 07/23/2024 2:44 PM FORM WORKER Height 152.4 cm (5') 07/23/2024 2:44 PM FORM WORKER Body Mass Index 29.29 07/23/2024 2:44 PM FORM WORKER Plan of Treatment Health Maintenance Due Date [...] Fall Risk Assessment 12/12/2023 12/11/2022 Covid-19 Vaccine ( - 2024-2 5 season) 2024 01/18/2021, 12/19/2020 Lipid Panel 09/09/2024 09/09/2023, 07/05, 12/03/2022 eGFR 01/23/2025 01/24/2024, 01/04, 12/11/2022, Additional history exists Influenza Vaccine (#1) 2025 DTaP/Tdap/Td Vaccine (2 - Td or Tdap) 08/21/2028 08/21/2018 Procedures Procedure Name Priority Date/Time Associated Diagnosis Comments CARDIOLOGY DOCUMENT SCAN Routine 02/25/2025 5:34 PM CDT COMPREHENSIVE METABOLIC PANEL Routine 01/24/2024 1:29 PM CDT Paroxysmal atrial flutter (HCC) Chronic anticoagulation At risk for amiodarone toxicity with buttermaker use LIPID PANEL Routine 09/09/2023 10:30 AM FORM WORKER HEMOGLOBIN A1C Routine 12/04/2022 6:04 AM CDT from Last 3 Months or Most Recently Relevant to Health Maintenance Results * Cardiology Document Scan (02/25/2025 5:34 PM CDT) Anatomical Region Laterality Modality Other Kamar Handy MD CV CARDIAC SERVICES PROCEDURES F inal Result * (ABNORMAL) Comprehensive metabolic panel (01/24/2024 1:29 [...] - 01/25/2024 7:11 AM CDT Performed at: [address] [place] [id number] Manager Hospitality: Dominic Alicea PhD, Phone: [phone] Belinda Smith MD LAB BLOOD ORDERABLES Fi nal Result [facility] - 01 * (ABNORMAL) Lipid panel (09/09/2023 10:30 AM FORM WORKER) Cholesterol 146 100 - 199 mg/dL [facility] - 01 Triglycerides 153(H) 0 - 149 mg/dL [facility] - 01 HDL Cholesterol 42 >39 mg/dL [facility] - 01 VLDL 27 5 - 40 mg/dL [facility] - 01 LDL, calculated 77 0 - 99 mg/dL [facility] - 01 09/09/2023 10:3 0 AM FORM WORKER 09/09/2023 Narrative [facility] - 09/10/2023 2:08 AM FORM WORKER Performed at: [address] [place] [address] [id number] Manager Hospitality: Dominic Alicea PhD, Phone: [phone] Specimen Comment: A courtesy copy of this report has been sent to [phone] Kurtis Abdalla MD LAB BLOOD ORDERABLES Fin al Result [facility] - 01 * (ABNORMAL) Hemoglobin A1c (12/04/2022 6:04 AM CDT) Hgb A1C 7.3(H) 4.0 - 5.6 % [facility] Estimated Average Glucose 163 mg/dL [facility] Comment: The ADA recommends reporting an estimated Average Glucose (eAG) with all Hemoglobin A1c results using the equation derived from a study of 507 normal and diabetic adults. Minority populations were underrepresented and children were not included. (Diabetes Care 2020; 43(S1): S66-S76). The eAG is not equivalent to a fasting glucose. Blood 12/04/2022 6:04 AM CDT 12/04/2022 6:26 AM CDT Bolivar Mclaughlin MD LAB BLOOD ORDERABLES Final Re sult Performing Organization Address [facility] de Phone Number [facility] Department [place] [address] from Last 3 Months or Most Recently Relevant to Health Maintenance Insurance MEDICARE COMMERCIAL GENERIC MEDICARE Advance Directives For more information, please contact: [phone] * Full Code (Latest Code Status on File) Date Activated Date Inactivated Comments 12/04/2022 12:05 AM 12/11/2022 8:28 PM Care Teams Cook 3 Pastry Relationship Specialty Start Date End Date Tio Shea MD PCP - General Family Medicine 05/01/21
[2025-03-11 13:09] LABS: Hematocrit 37.9 % (37.0-47.0); Hemoglobin 11.7 g/dL (12.0-15.0); Immature Granulocyte Percent A 0.4 % (0-0.5); Immature Reticulocyte Fraction 21.9 % (3.0-15.9); Lymphocytes Absolute Auto 1.47 K/mm3 (0.9-3.2); Mean Corpuscular HGB Conc 30.9 g/dl (32-36); Mean Corpuscular Hemoglobin 30.5 pg (26-34); Mean Corpuscular Volume 98.7 fl (80-100); Nucleated Red Blood Cells Absolute Auto 0.000 K/mm3 (0.0-0.012); Nucleated Red Blood Cells Perc 0.0 % (0.0-0.2); Platelet Count Result 373 k/mm3 (150-375); Red Blood Count 3.84 M/mm3 (4.2-5.4); Reticulocyte Hemoglobin Conten 35.0 pg (28.2-36.6); Reticulocytes Absolute 0.08 10^6/uL (0.02-0.10); White Blood Count 14.2 K/mm3 (4.5-10.0)
[2025-03-11 13:13] LABS: Iron 63 ug/dL (37-170)
[2025-03-11 13:16] LABS: Alanine Aminotransferase 72 U/L (6-35); Albumin Level 4.1 g/dL (3.5-5.1); Alkaline Phosphatase 121 U/L (38-126); Anion Gap 6 mmol/L (4-12); Aspartate Amino Transferase 85 U/L (14-36); Bilirubin,Total 0.4 mg/dL (0.2-1.3); Blood Urea Nitrogen 20 mg/dL (7-17); Calcium 10.3 mg/dL (8.4-10.2); Carbon Dioxide 32 mmol/L (22-30); Chloride 101 mmol/L (98-107); Estimated Glomerular Filt Rate 20; Glucose 100 mg/dL (65-110); Potassium 4.6 mmol/L (3.4-5.0); Sodium 139 mmol/L (137-145); Total Protein 7.1 g/dL (6.3-8.2)
[2025-03-11 13:30] LABS: Hemoglobin A1C 5.4 % (<5.7)
[2025-03-11 13:55] LABS: Ferritin 27.30 ng/mL (11.1-264)
[2025-03-11 14:17] LABS: Vitamin B12 > 1000.0 pg/mL (239-931)
== END 2025-03-11 10:48 | disposition home or self-care (01) ==
LOC: ANHGOSHLAB 10:48
PROVIDERS: PCP Family Medicine; Visit Provider Family Medicine
DX: E11.69 Type 2 diabetes mellitus with other specified complication (principal); I10 Essential (primary) hypertension; E66.9 Obesity, unspecified; D64.9 Anemia, unspecified
CPT/HCPCS: 36415; 80053; 82607; 82728; 83036; 83540; 85025; 85046

== ENCOUNTER 2025-03-31 08:25 | Outpatient (CLI) | payer MEDICARE, SELFPAY ==
--- NOTE | ~2025-03-31 | CT_ITS ---
EXAMINATION: CT brain wo con DATE: 03/31/2025 09:10 INDICATION: Head injury. TECHNIQUE: Computed tomography (CT) of the head was performed without intravenous contrast. The dose-length product was 529.67 mGy-cm. Automated exposure control and iterative reconstruction technique were employed. COMPARISON: CT dated 08/21/2018 FINDINGS: There are bilateral cochlear implant device is. These create significant streak artifact limiting evaluation of the underlying parenchyma. No ventriculomegaly or midline shift. No acute intracranial hemorrhage, infarction, mass or mass effect. Basilar cisterns are patent. There is intracranial atherosclerosis. Small left mastoid effusion. Paranasal sinuses are unremarkable. IMPRESSION: 1. No acute intracranial abnormality. Reviewed, dictated and finalized at location O.
--- OUTSIDE RECORDS SUMMARY | 2025-03-31 08:28 | XMS_ITS | Encounter Summary ---
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 Gender Identity Not on file Sexual Orientation Not on file documented as of this encounter Plan of Treatment Not on file documented as of this encounter Procedures Procedure Name Priority Date/Time Associated Diagnosis Comments SCAN - RADIOLOGY/IMAGING 02/24/2025 CARDIOLOGY DOCUMENT SCAN 02/24/2025 documented in this encounter Results * SCAN - RADIOLOGY/IMAGING (02/24/2025) Anatomical Region Laterality Modality Other us Provider Scanning Edited Result - Final * Cardiology Document Scan (02/24/2025) Anatomical Region Laterality Modality Other us Provider Scanning CV CARDIAC SERVICES PROCEDURES Final Result documented in this encounter Visit Diagnoses Not on filedocumented in this encounter Care Teams Pot Washer Relationship Specialty Start Date End Date Tio Shea MD PCP - General Family Medicine 05/01/21 documented as of this encounter
--- OUTSIDE RECORDS SUMMARY | 2025-03-31 08:28 | XMS_ITS | Clinical Summary ---
Author Organization [facility] Address [address] [place] [address] Care Team Providers Care Advisory Application Developer Name Role Phone Tio Shea MD Primary Care Provider [phone] [phone] Allergies No known active allergies Medications omeprazole (PriLOSEC) 20 mg capsule Take 1 capsule (20 mg total) by mouth daily 11/20/19 23 Active amLODIPine (NORVASC) 10 mg tablet Take 1 tablet (10 mg total) by mouth every morning 12/22/19 23 Active metoprolol XL (TOPROL-XL) 50 mg extended release tabletIndicatio ns:Paroxysmal atrial fibrillation (HCC) Take 1 tablet (50 mg total) by mouth daily 90 tablet 3 12/27/19 23 Active amiodarone (PACERONE) 200 mg tabletIndicatio ns:Paroxysmal atrial fibrillation (HCC) Take 1 tablet (200 mg total) by mouth daily 30 tablet 03/14/20 23 Active allopurinoL (ZYLOPRIM) 100 mg tablet Take 1 tablet (100 mg total) by mouth daily 03/08/20 23 Active cholecalciferol (Vitamin D3) 2000 unit tablet Active magnesium gluconate 200 mg tabletIndicatio ns:hypomagnesem ia 1 tablet (200 mg total) Active Mounjaro 2.5 mg/0.5 mL pen injector INJECT 2.5 MG (0.5 ML) SUBCUTANEOUSLY WEEKLY FOR 4 WEEKS 01/16/20 24 Active metFORMIN (GLUCOPHAGE) 500 mg tablet [...] hours 180 tablet 2 08/18/19 25 Active potassium chloride ER 20 mEq CR tablet Take 1 tablet (20 mEq total) by mouth 2 (two) times a day 02/27/20 25 Active gabapentin (NEURONTIN) 600 mg tablet Take 1 tablet (600 mg total) by mouth 3 (three) times a day 02/20/20 25 Active furosemide (LASIX) 20 mg tablet Take 1 tablet (20 mg total) by mouth daily 90 tablet 3 03/29/20 25 Active potassium chloride ER 10 mEq CR tablet Take 1 tablet/capsule (10 mEq total) by mouth daily 11/15/19 24 025 Discontinu ed(No longer taking - Do not display on AVS) furosemide (LASIX) 20 mg tablet Take 1 tablet (20 mg total) by mouth daily 02/27/20 25 025 Discontinu ed(Reorder ) Active Problems Problem Noted Date Diagnosed Date [...] 12/11/2022 12/12/19 Urinary tract infection 12/11/2022 0504/2023 Encounters Date Type Department Care Team Description 03/29/2025 Telephone [facility] Medical [facility] Cardiology [address] [place] [address] Merrill Rubalcava MD Med Refill 03/22/2025 2:30 PM CDT Office Visit [facility] Medical [facility] Cardiology [address] [facility] [address] [place] [phone] Alysa Puckett NP Hospital discharge follow-up (Primary Dx); Acute diastolic heart failure (HCC); Anemia, unspecified type; Lipid screening 02/26/2025 Orders Only [facility] Cardiology [address] 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 Gender Identity Not on file Sexual Orientation Not on file Obstetrics History Last Filed Vital Signs Vital Sign Reading Time Taken Comments Blood Pressure 112/68 03/22/2025 2:35 PM CDT Pulse 65 03/22/2025 2:35 PM CDT Temperature 36.8 C (98.3 F) 12/11/2022 4:09 AM CDT Respiratory Rate 18 12/11/2022 11:30 AM CDT Oxygen Saturation 94% 03/22/2025 2:35 PM CDT Inhaled Oxygen Concentration - - Weight 67.6 kg (149 lb) 03/22/2025 2:35 PM CDT Height 152.4 cm (5') 03/22/2025 2:35 PM CDT Body Mass Index 29.1 03/22/2025 2:35 PM CDT Plan of Treatment Health Maintenance Due Date [...] - 2023-2 5 season) 2024 01/18/2021, 12/19/2020 eGFR 01/23/2025 01/24/2024, /02/2023, 12/11/2022, Additional history exists Influenza Vaccine (#1) 2025 Lipid Panel 03/22/2026 03/22/2025, 02/0 12/2023, 07/19/2023, Additional history exists DTaP/Tdap/Td Vaccine (2 - Td or Tdap) 08/21/2028 08/21/2018 Procedures Procedure Name Priority Date/Time Associated Diagnosis Comments POCT LIPID PANEL Routine 03/22/2025 2:34 PM CDT Lipid screening SCAN - LABS 02/26/2025 CARDIOLOGY DOCUMENT SCAN Routine 02/25/2025 5:34 PM CDT CARDIOLOGY DOCUMENT SCAN 02/24/2025 SCAN - RADIOLOGY/IMAGING 02/24/2025 COMPREHENSIVE METABOLIC PANEL Routine 01/24/2024 1:29 PM CDT Paroxysmal atrial flutter (HCC) Chronic anticoagulation At risk for amiodarone toxicity with longterm use HEMOGLOBIN A1C Routine 12/04/2022 6:04 AM CDT from Last 3 Months or Most Recently Relevant to Health Maintenance Results * POCT lipid panel (03/22/2025 2:34 PM CDT) Cholesterol, POC 137 <200 MG/DL HDL, POC 46 >=40 mg/dL Triglycerides, POC 126 <=149 mg/dL LDL Cholesterol POC 66 <=129 mg/dL Chol/HDL Ratio, POC 1.4 NONE Non-HDL Cholesterol, POC 91 NONE mg/dL Cholesterol Total, POC 137 30 - 199 mg/dL Capillary blood 03/22/2025 2 :34 PM CDT us Alysa Puckett NP POINT OF CARE TEST ORDERA BLES Final Result * SCAN - LABS (02/26/2025) us Provider Scanning Final Result * Cardiology Document Scan (02/25/2025 5:34 PM CDT) Anatomical Region Laterality Modality Other us Kamar Handy MD CV CARDIAC SERVICES PROCEDURES F inal Result * SCAN - RADIOLOGY/IMAGING (02/24/2025) Anatomical Region Laterality Modality Other us Provider Scanning Edited Result - Final * Cardiology Document Scan (02/24/2025) Anatomical Region Laterality Modality Other us Provider Scanning CV CARDIAC SERVICES PROCEDURES Final Result * (ABNORMAL) Comprehensive metabolic panel (01/24/2024 [...] - 01/25/2024 7:11 AM CDT Performed at: [address] [id number] Geology Technician: Dominic Alicea PhD, Phone: [phone] us [facility] Katie Smith MD LAB BLOOD ORDERABLES Fi nal Result [facility] - 01 * (ABNORMAL) Hemoglobin A1c (12/04/2022 6:04 AM CDT) [facility] Hgb A1C 7.3(H) 4.0 - 5.6 [...] LAB BLOOD ORDERABLES Final Re sult [facility] [place] [address] from Last 3 Months or Most Recently Relevant to Health Maintenance Insurance MEDICARE COMMERCIAL GENERIC MEDICARE COMMERCIAL GENERIC Advance Directives For more information, please contact: [phone] * Full Code (Latest Code Status on File) Date Activated Date Inactivated Comments 12/04/2022 12:05 AM 12/11/2022 8:28 PM Care Teams Advisory Application Developer Relationship Specialty Start Date End Date Tio Shea MD PCP - General Family Medicine 05/01/21
[2025-03-31 08:50] LABS: Estimated Glomerular Filt Rate 22
== END 2025-03-31 08:26 | disposition home or self-care (01) ==
PROVIDERS: PCP Family Medicine; Visit Provider Family Medicine
DX: S09.90XA Unspecified injury of head, initial encounter (principal); R27.0 Ataxia, unspecified; X58.XXXA Exposure to other specified factors, initial encounter
CPT/HCPCS: 70450

== ENCOUNTER 2025-04-10 19:47 | Emergency (ER) | payer MEDICARE, SELFPAY ==
[2025-04-10] VITALS (13 sets, daily range): BP systolic 135–138; BP diastolic 69–76; PULSE 66–83; RESP 14–21; TEMP 36.6; O2SAT 93–99
--- NOTE | ~2025-04-10 | CT_ITS ---
EXAMINATION: CT brain jeferson hough, 04/10/2025 20:03 CDT HISTORY: head injury COMPARISON: No comparisons available. Technique: Axial images obtained of the brain without contrast. One or more of the following dose reduction techniques were used: automated exposure control, adjustment of the mA and/or kV according to patient size, use of iterative reconstruction technique. Findings: No acute infarct or parenchymal hemorrhage. No abnormal mass or mass effect. No midline shift. No extra-axial fluid collections. No hydrocephalus. The mastoid air cells demonstrate sequelae of previous surgery, artifact limits evaluation. Sinuses and orbits unremarkable. No acute fracture. No significant facial or scalp soft tissue swelling evident. No radiopaque foreign body is seen. Impression: 1.No acute intracranial abnormality. Reviewed, dictated and finalized at location A. Impression: 1.No acute intracranial abnormality.
--- NOTE | ~2025-04-10 | CT_ITS ---
EXAMINATION: CT cervical spine wo [place], 04/10/2025 20:03 CDT HISTORY: head injury COMPARISON: No comparisons available. Technique: Axial images were obtained of the spine per protocol. One or more of the following dose reduction techniques were used: automated exposure control, adjustment of the mA and/or kV according to patient size, use of iterative reconstruction technique. Unless otherwise stated, incidental findings do not require dedicated follow up imaging Findings: Moderate loss of vertebral height, grade 1 anterolisthesis of C3 on C4 and C4 C5 C5 on C6, no fracture is identified. Moderate loss of disc at C3-4, C4-5 and C5-6 with moderate canal and foraminal stenosis, outpatient MRI is suggested. Soft tissues unremarkable Impression: No acute abnormality. Reviewed, dictated and finalized at location A. Impression: No acute abnormality.
--- OUTSIDE RECORDS SUMMARY | 2025-04-10 19:54 | XMS_ITS | Encounter Summary ---
Author Organization [facility] Healthcare Address [address] [place] [address] Care Team Providers Care Railroader Name Role Phone Tio Shea MD Primary Care Provider [phone] [phone] Encounter Details Date Type Department Care Team (Late st Contact Info) Description 02/24/2025 Orders Only [facility] Information Management [address] [place] [phone] Scanning, Provider Social History Tobacco Use [...] on file Legal Sex Female 6:47 PM OPERATIONS SUPPORT REPRESENTATIVE Gender Identity Not on file Sexual Orientation [...] on filedocumented in this encounter Care Teams Railroader Relationship Specialty Start Date End Date Tio Shea MD PCP - General Family Medicine 05/01/21 documented as of this encounter
--- NOTE | 2025-04-10 20:28 | ED.HEATRA ---
HPI - Head Injury General Chief complaint: Head Injury Stated complaint: fell Time Seen by Provider: 04/10/25 19:57 Source: patient Mode of arrival: ambulatory Limitations: no limitations History of Present Illness HPI Narrative: This is a 69 year old female that presents to the ER for a fall today. Reports she lost her balance and fell backwards as she was carrying food. She hit her head. She did not lose consciousness. Denies vision changes, vomiting, numbness, weakness. Related Data Home Medications ?Medication ?Instructions ?Recorded ?Confirmed ?Last Taken ?Type cholecalciferol (vitamin D3) 125 125 mcg PO DAILY 10/24/22 03/10/25 02/23/25 History mcg (5,000 unit) capsule rosuvastatin 40 mg tablet 40 mg PO DAILY 02/14/24 03/10/25 02/23/25 History latanoprost 0.005 % eye drops 1 drp EACH EYE QPM 05/06/24 03/10/25 02/23/25 History Allergies Allergy/AdvReac Type Severity Reaction Status Date / Time No Known Allergies Allergy Verified 04/10/25 20:22 Review of Systems Review of Systems: All systems reviewed & are unremarkable except as noted in HPI and below PMFSH Past Medical History Medical History Positive colorectal cancer screening using Cologuard test HTN (hypertension) Atrial fibrillation/flutter Dx at [facility] during admission on 12/05/22-12/11/22 Obstructive sleep apnea Gout Diabetes mellitus type 2 in obese Mood disorder (HFpEF) heart failure with preserved ejection fraction Mitral regurgitation Herpes zoster Shingles Flare in October of 2022 Breast cancer screening by mammogram Obesity (BMI 30.0-34.9) GERD without esophagitis Migraine, unspecified, not intractable, without status migrainosus Mixed hyperlipidemia Unspecified sensorineural hearing loss Surgical History Surgical History H/O tubal ligation H/O section X2 History of cochlear implant Family History Family History Sibling Patient's sister is Mother Patient's mother is Other Family history of elevated blood lipids Family history of glaucoma Hypertension Social History Social History Social History: The patient is and lives with her . She has 2 children. She is retired from [employer]. She is a lifelong nonsmoker. She does not use any alcohol marijuana or illicit drugs. Code status full code Smoking status: Never smoker Alcohol intake: never Substance use: never Substance use type: does not use Do You Feel Safe in your Home?: Yes Lack of Transportation: No Lack of Food: Never True Current Housing: I Have Housing Concerned About Future Housing: No Difficulty Paying Gas/Electric Bills: No Difficulty Paying for Meds: No Currently Unemployed: No Education: High School Diploma/GED Difficulty w/ Childcare or Family Care: No Living arrangements: other Additional living arrangements comments: with sp Spiritual care concerns: No Exam Narrative: GENERAL: Well-appearing, well-nourished, and in no acute distress. HEAD: Normocephalic. Posterior scalp hematoma EYES: PERRLA and EOMI. ENT: Nares clear, no rhinorrhea or epistaxis. Mucous membranes moist. Oropharynx without tonsillar hypertrophy exudate or other lesions. NECK: Supple. No adenopathy or masses. CHEST: Clear to auscultation. No respiratory distress. No wheezes rales or rhonchi HEART: Regular rate and rhythm. No murmur heard. Normal peripheral pulses. EXTREMITIES: Normal range of motion. No edema. SKIN: Warm, dry, no rash. NEURO: No focal deficits. Alert and oriented x3. Cranial nerves 2-12 grossly intact PSYCH: Normal mood and affect Course Course Emergency Course: Patient updated on her workup and agrees with plan of care Vital Signs Vital signs: Vital Signs Temperature 97.8 F 04/10/25 19:59 Pulse Rate 83 04/10/25 19:59 Respiratory Rate 17 04/10/25 19:59 Blood Pressure 135/69 04/10/25 19:59 Pulse Oximetry 96 04/10/25 19:59 Oxygen Delivery Room Air 04/10/25 19:59 Temperature 97.8 F 04/10/25 19:59 Pulse Rate 67 04/10/25 23:19 Respiratory Rate 17 04/10/25 23:19 Blood Pressure 136/76 04/10/25 20:31 Pulse Oximetry 93 04/10/25 23:19 Oxygen Delivery Room Air 04/10/25 20:19 MDM - Head Injury MDM Narrative Medical decision making narrative: Patient presents the emergency department after a fall today with head injury. She is neurologically intact. Her vitals are stable. CT brain and cervical spine without acute findings. Patient has a posterior scalp hematoma that was oozing, bleeding was controlled. Patient educated on further care of concussion. She is to follow up with PCP. She was given warnings to return to the ER Differential Diagnosis Differential diagnosis: Likely concussion without loss of consciousness, closed head injury and subdural hematoma Imaging Data Radiologist's impression: CT brain: No acute intracranial findings seen CT cervical spine: No acute c spine finding Critical Care Time Critical Care Time Critical Care Time: No Discharge Plan Discharge Clinical Impression: Hematoma Head injury Qualifiers: Encounter type: initial encounter Qualified Code(s): S09.90XA - Unspecified injury of head, initial encounter Patient Disposition: Home Condition: Stable Instructions: Concussion (ED), Hematoma (ED) Additional Instructions: Return to the emergency department if you experience fever, chest pain, shortness of breath, abdominal pain with nausea and vomiting, weakness, numbness, or any other symptoms that are concerning to you. Rest. Remain well hydrated. Over the counter pain medication as needed. You may let the water run over your wound in the shower, avoid harsh scrubbing to the area Follow up with your primary care doctor Patient Language: Greenlandic Prescriptions: No Action cholecalciferol (vitamin D3) 125 mcg (5,000 unit) capsule 125 mcg PO DAILY (DME) Nasal pillow mask for CPAP See Rx Instructions .Route .MEDSUPPLY Qty: 1 0RF Rx Instructions: As directed latanoprost 0.005 % drops 1 drp EACH EYE QPM gabapentin 600 mg tablet 600 mg PO TID Qty: 270 3RF magnesium oxide 400 mg (241.3 mg magnesium) Tablet 400 mg PO QAM Qty: 30 0RF rosuvastatin 40 mg tablet 40 mg PO DAILY potassium chloride [K-Tab] 20 mEq tablet extended release 40 meq PO BID 30 Days Qty: 120 0RF furosemide [Lasix] 20 mg tablet 20 mg PO DAILY 30 Days Qty: 30 0RF (DME) CPAP See Rx Instructions .Route .MEDSUPPLY Qty: 1 0RF Rx Instructions: Resmed AirSense 11 AutoPAP 5-15 cm H2O, CPAP mask/filters/tubing and humidifier chamber. Eliquis 5 mg tablet 5 mg PO Q12HR Qty: 60 1RF (DME) lancets [OneTouch Delica Plus Lancet] 30 gauge misc See Rx Instructions .Route Qty: 200 3RF Rx Instructions: Use to check BS TID (DME) OneTouch Ultra Test Strip See Rx Instructions .ROUTE .COMPLEX Qty: 100 3RF Dose Instruction: USE TO CHECK BLOOD SUGAR DAILY Rx Instructions: USE TO CHECK BLOOD SUGAR daily Patient is not on insulin and checks sugars daily Mounjaro 2.5 mg/0.5 mL pen injector 2.5 mg subcut WEEKLY 28 Days Qty: 6 3RF metformin 500 mg tablet 500 mg PO BID Qty: 180 1RF omeprazole 20 mg capsule,delayed release(DR/EC) 20 mg PO DAILY Qty: 90 1RF metoprolol succinate 50 mg tablet extended release 24 hr 50 mg PO DAILY Qty: 90 1RF amlodipine 10 mg tablet 10 mg PO QAM Qty: 90 1RF amiodarone [Pacerone] 200 mg tablet 200 mg PO DAILY Qty: 90 0RF allopurinol 100 mg tablet 200 mg PO DAILY Qty: 180 1RF Follow-up/Referrals: Tio Shea MD [Primary Care Provider, Family Practice]
[2025-04-10] MEDS: TETANUS,DIPHTHERIA,AC PERTUSSIS ADULT (0.5 ML) BOOSTRIX IM (20:33)
[2025-04-10] MEDS: HYDROGEN PEROXIDE 3% SOLN(*SP) 473 ML BOTTLE (20:37)
[2025-04-11 02:19] VITALS: BP 136/76; PULSE 67; RESP 22; O2SAT 95
== END 2025-04-11 02:05 | disposition home or self-care (01) ==
PROVIDERS: Emergency Provider Physician Assistant; PCP Family Medicine
DX: S00.03XA Contusion of scalp, initial encounter (principal); Z23 Encounter for immunization; I11.0 Hypertensive heart disease with heart failure; I50.30 Unspecified diastolic (congestive) heart failure; I34.0 Nonrheumatic mitral (valve) insufficiency; I48.91 Unspecified atrial fibrillation; I48.92 Unspecified atrial flutter; E11.9 Type 2 diabetes mellitus without complications; E78.2 Mixed hyperlipidemia; E66.9 Obesity, unspecified; Z68.30 Body mass index [BMI] 30.0-30.9, adult; G47.33 Obstructive sleep apnea (adult) (pediatric); M10.9 Gout, unspecified; K21.9 Gastro-esophageal reflux disease without esophagitis; Z96.21 Cochlear implant status; Z79.899 Other long term (current) drug therapy; Z79.01 Long term (current) use of anticoagulants; Z79.85 Long-term (current) use of injectable non-insulin antidiabetic drugs; Z79.84 Long term (current) use of oral hypoglycemic drugs; W18.39XA Other fall on same level, initial encounter
CPT/HCPCS: 70450; 72125; 90471; 90715; 99284; A9270

== ENCOUNTER 2025-05-10 09:55 | Outpatient (CLI) | payer MEDICARE, SELFPAY ==
--- NOTE | ~2025-05-10 | MM_ITS ---
EXAMINATION: MM screening nathaly BI w monika HISTORY: Screening TECHNIQUE: Craniocaudal and mediolateral oblique 3-D tomosynthesis images were obtained and synthetic 2-D images were generated. CAD analysis was submitted and interpreted. COMPARISON: Comparison to multiple prior studies sequentially, with oldest reviewed study dated , 12/26/2009 BREAST PARENCHYMAL COMPOSITION: There are scattered areas of fibroglandular density. FINDINGS: There is no evidence of suspicious mass, calcification, or architectural distortion to suggest malignancy in either breast. IMPRESSION: 1. No mammographic evidence of malignancy. 2. Recommend routine screening mammography in one year. BI-RADS Category 1: Negative Reviewed, dictated and finalized at location B.
== END 2025-05-10 09:56 | disposition home or self-care (01) ==
LOC: MICIMG 10:00
PROVIDERS: PCP Family Medicine; Visit Provider Nurse Practitioner Family
DX: Z12.31 Encounter for screening mammogram for malignant neoplasm of breast (principal)
CPT/HCPCS: 77063; 77067

== ENCOUNTER 2025-05-26 10:29 | Outpatient (CLI) | payer MEDICARE, SELFPAY ==
--- NOTE | ~2025-05-26 | XR_ITS ---
XR chest 2V 05/26/2025 11:03 Indication: Amiodarone therapy Procedure: 2 view chest Comparison: 02/24/2025 Findings: Heart size normal. No focal air space disease, pulmonary edema, pleural effusion or suspected pneumothorax. There is left basilar atelectasis. Moderate thoracic spondylosis. No acute osseous abnormality. Impression: 1: Left basilar atelectasis. Reviewed, dictated and finalized at location O. Impression: 1: Left basilar atelectasis.
--- OUTSIDE RECORDS SUMMARY | 2025-05-26 09:30 | XMS_ITS | Encounter Summary ---
Author Organization [facility] Healthcare Address [address] [place] [address] Care Team Providers Care Degreasing Solution Reclaimer Name Role Phone Tio Shea MD Primary Care Provider [phone] Reason for Visit * Reason Comments Atrial Flutter Heart Failure Hypertension Hyperlipidemia 2 mo f/u Encounter Details Date Type Department Care Team (Late st Contact Info) Description 05/26/2025 9:30 AM CDT Office Visit 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 CARDIOLOGY 05/26/2025 CHIEF COMPLAINT Chief Complaint Patient presents with Atrial Flutter Heart Failure Hypertension Hyperlipidemia 2 mo f/u HPI Stella Carroll is a 69 y.o. female with hypertension, paroxysmal atrial flutter/fibrillation on anticoagulation with apixaban, type 2 diabetes mellitus, hearing impairment. 05/26/2025 initial evaluation-patient is here to reestablish cardiovascular care. She is former patient of Dr. Abdalla. Currently, patient denies any major cardiovascular symptoms including chest pain, shortness breath,palpitation, dizziness or syncope. Patient states that she had a mechanical fall on 04/09/2025. Shestates that she had to go to [facility] Emergency room due to laceration on her scalp. She states that she was discharged from the ER. She denies any other falls. Reports compliance with current medical regimen including anticoagulation, denies any overt bleeding complications. MEDICAL HISTORY she has a past medical history of Atrial flutter (HCC), Hyperlipidemia, Hypertension, and Syncope. Cochlear implant she No Known Allergies Current Outpatient Medications Medication Sig Dispense Refill allopurinoL (ZYLOPRIM) 100 mg tablet Take 1 tablet (100 mg total) by mouth daily amiodarone (PACERONE) 200 mg tablet Take 1 tablet (200 mg total) by mouth daily 30 tablet 0 amLODIPine (NORVASC) 10 mg tablet Take 1 tablet (10 mg total) by mouth every morning cholecalciferol (Vitamin D3) 2000 unit tablet Eliquis 5 mg tablet TAKE 1 TABLET BY MOUTH EVERY 12 HOURS 180 tablet 2 furosemide (LASIX) 20 mg tablet Take 1 tablet (20 mg total) by mouth daily 90 tablet 3 gabapentin (NEURONTIN) 600 mg tablet Take 1 tablet (600 mg total) by mouth 3 (three) times a day latanoprost (XALATAN) 0.005 % ophthalmic solution INSTILL 1 DROP INTO BOTH EYES EVERY NIGHT AT BEDTIME magnesium gluconate 200 mg tablet 1 tablet (200 mg total) (Patient taking differently: 2 tablets (400 mg total)) metFORMIN (GLUCOPHAGE) 500 mg tablet Take 1 tablet (500 mg total) by mouth 2 (two) times a day metoprolol XL (TOPROL-XL) 50 mg extended release tablet Take 1 tablet (50 mg total) by mouth daily 90 tablet 3 Mounjaro 2.5 mg/0.5 mL pen injector INJECT 2.5 MG (0.5 ML) SUBCUTANEOUSLY WEEKLY FOR 4 WEEKS omeprazole (PriLOSEC) 20 mg capsule Take 1 capsule (20 mg total) by mouth daily potassium chloride ER 20 mEq CR tablet Take 1 tablet (20 mEq total) by mouth 2 (two) times a day rosuvastatin (CRESTOR) 40 mg tablet Take 1 tablet (40 mg total) by mouth daily 90 tablet 3 imipramine (TOFRANIL) 10 mg tablet Take 1 tablet (10 mg total) by mouth nightly Will gradually taper up (Patient not taking: Reported on 05/26/2025) No current facility-administered medications for this visit. she family history includes No Known Problems in her father and mother. she reports that she has never smoked. She has never been exposed to tobacco smoke. She has never used smokeless tobacco. Patient denies consuming alcoholic drinks. Denies tobacco, alcohol or illicit drugs. Lives with the RE[employer] SYSTEMS General ROS: negative for - Fever, chills, fatigue Psychological ROS: negative for - anxiety, depression Ophthalmic ROS: negative for - loss of vision ENT ROS: Decreased hearing Allergy and Immunology ROS: negative for - hives, postnasal drip Hematological and Lymphatic ROS: negative for - overt bleeding problems, bruising Respiratory ROS: negative for - cough, hemoptysis, wheezing Cardiovascular ROS: negative for - chest pain, dyspnea Gastrointestinal ROS: negative for - abdominal pain, nausea/vomiting, hematemesis, blood in the stool Endocrine ROS: negative for - hot flashes, polydipsia/polyuria Musculoskeletal ROS: negative for - joint pain, muscle pain Neurological ROS: negative for - gait disturbance, weakness Dermatological ROS: negative for pruritus, rash LABS AND OTHER DIAGNOSTIC TESTS REVIEWED Lab Results Component Value Date WBC 10.8 01/24/2024 HGB 12.9 01/24/2024 HCT 39.5 01/24/2024 MCV 92 01/24/2024 No lab exists for component: LABALBU Lab Results Component Value Date WBC 10.8 01/24/2024 HGB 12.9 01/24/2024 HCT 39.5 01/24/2024 MCV 92 01/24/2024 Lab Results Component Value Date CHOL 146 09/09/2023 CHOL 183 12/03/2022 Lab Results Component Value Date HDL 42 09/09/2023 HDL 45 12/03/2022 No results found for: LDL] Lab Results Component Value Date TRIG 153 (H) 09/09/2023 TRIG 109 12/03/2022 Lab Results Component Value Date POCCHOL 137 03/22/2025 POCHDL 46 03/22/2025 POCTRIG 126 03/22/2025 POCLDL 66 03/22/2025 POCNONHDL 91 03/22/2025 POCCHLPL 137 03/22/2025 CT head-Bilateral cochlear implants with associated extensive streak artifact throughout the lower parietal and temporal lobes. Within these limitations, no acute intracranial hemorrhage. 12/03/2022 Echo-Normal LV and RV size and systolic function. LVEF 76%. Normal LV wall thickness/mass. No WMA. No significant valvular abnormalities noted. Trace-mild MR. LA is normal. Normal RV cavity size. Strain quality is inadequate for accurate reporting. Normal diastolic function. Estimated PA systolic pressure 30+RA(3) mmHg. Normal Inferior vena cava. Normal aorta. No prior study. 12/04/2022; [facility] Thirty day event monitor- NSR with a fib about 1% of the time - with variable rates. 12/11/2022; [facility] Lipids-total cholesterol 137, HDL 46, triglycerides 126, LDL 66. 03/22/2025 EKG-sinus rhythm, QTC 483 millisecond. 05/26/2025 PHYSICAL EXAM Vitals BP 120/64 (BP Location: Left arm, Patient Position: Sitting) Pulse 57 Ht 152.4 cm (5') Wt 66.2 kg (146 lb) SpO2 97% BMI 28.51 kg/m?? General appearance - alert, no distress, oriented to time, place, person Mental status - affect appropriate to mood Eyes - extraocular eye movements intact, no pallor Ears - external ears appear normal, decreased hearing Nose - normal and patent, no discharge Mouth - mucous membranes moist, tongue normal Neck - supple, no JVD Chest - clear to auscultation Heart - normal rate, regular rhythm, normal S1, S2, systolic murmur LSB Abdomen - soft, nontender Neurological - alert, oriented, slightly slurred speech, no gross motor deficits Musculoskeletal - no major deformity, no amputations Extremities - no pedal edema, no clubbing or cyanosis Skin - no rashes (on the exposed areas), no cyanosis ASSESSMENT Diagnoses and all orders for this visit: PAF (paroxysmal atrial fibrillation) (Primary) - Electrocardiogram Report - CBC with auto differential; Future - Comprehensive metabolic panel; Future On amiodarone therapy - TSH; Future - XR Chest PA Lateral 2 Views; Future Chronic anticoagulation Hypertension associated with diabetes (HCC) - Electrocardiogram Report Hearing loss, unspecified hearing loss type, unspecified laterality History of fall PLAN/RECOMMENDATIONS 69 y.o. female with hypertension, paroxysmal atrial flutter/fibrillation on anticoagulation with apixaban, type 2 diabetes mellitus, hearing impairment. -Patient with history of paroxysmal atrial flutter/fibrillation, currently in sinus rhythm. She hasbeen on anticoagulation with apixaban. Patient reported that she had a mechanical fall on 04/09/2025 and had laceration in the back of herscalp. Denies any other falls. Spoke with the patient about option of left atrial appendage closure, should she have any recurrentfalls or other contraindications for chronic anticoagulation. Educational material was provided to the patient. Continue anticoagulation with apixaban 5 mg p.o. b.i.d. for now. Patient is on rhythm control with amiodarone. Screening for potential amiodarone toxicity. Labs andCXR ordered. Patient will also need periodic PFTs which will be ordered on follow up visit. Periodic eye exam. -Blood pressure controlled with current antihypertensives which include amlodipine, metoprolol succinate. Target blood pressure less than 130/80 mmHg. Adhere to low-salt diet. -Management of other medical problems including diabetes mellitus as per PCP. -Personally reviewed patient's extensive medical records including previous notes, and other diagnostics as described above. -Heart healthy diet, regular aerobic activity, fall precautions discussed with the patient. -Follow up in about 12-14 months or sooner if necessary. My total encounter time on 05/26/25 was 42 minutes which was spent in the activities documented in the note. This includes time spent prior to the visit and after the visit in direct care of the patient. This time does not include time spent in any other separately reportable services. Merrill Rubalcava MD 05/26/25 Voice recognition software was used to complete this document, therefore, exerciser variances may occur. documented in this encounter Plan of Treatment Scheduled Orders Name Type Priority Associated Diagnoses Order Schedule CBC with auto differential Lab Routine PAF (paroxysmal atrial fibrillation) Expected: 05/29/2025, Expires: 05/26/2026 Comprehensive metabolic panel Lab Routine PAF (paroxysmal atrial fibrillation) Expected: 05/29/2025, Expires: 05/26/2026 TSH Lab Routine On amiodarone therapy Expected: 05/29/2025, Expires: 05/26/2026 XR Chest PA Lateral 2 Views Imaging Schedule Routine, Read Routine (OP Routine) On amiodarone therapy Expected: 05/26/2025, Expires: 05/26/2026 documented as of this encounter Procedures Procedure Name Priority Date/Time Associated Diagnosis Comments ELECTROCARDIOGRAM REPORT Routine 025 9:15 AM CDT PAF (paroxysmal atrial fibrillation) Hypertension associated with diabetes (HCC) documented in this encounter Results * Electrocardiogram Report (05/26/2025 9:15 AM CDT) us Merrill Rubalcava MD ECG ORDERABLES Final Result documented in this encounter Visit Diagnoses Diagnosis PAF (paroxysmal atrial fibrillation)- Primary Atrial fibrillation On amiodarone therapy Chronic anticoagulation Encounter for long-term (current) use of anticoagulants Hypertension associated with diabetes (HCC) Unspecified essential hypertension Hearing loss, unspecified hearing loss type, unspecified laterality History of fall Personal history of fall documented in this encounter Care Teams Degreasing Solution Reclaimer Relationship Specialty Start Date End Date Tio Shea MD PCP - General Family Medicine 05/01/21 documented as of this encounter
[2025-05-26 10:54] LABS: Hematocrit 39.7 % (37.0-47.0); Hemoglobin 12.6 g/dL (12.0-15.0); Immature Granulocyte Percent A 0.4 % (0-0.5); Lymphocytes Absolute Auto 1.26 K/mm3 (0.9-3.2); Mean Corpuscular HGB Conc 31.7 g/dl (32-36); Mean Corpuscular Hemoglobin 29.9 pg (26-34); Mean Corpuscular Volume 94.3 fl (80-100); Nucleated Red Blood Cells Absolute Auto 0.000 K/mm3 (0.0-0.012); Nucleated Red Blood Cells Perc 0.0 % (0.0-0.2); Platelet Count Result 339 k/mm3 (150-375); Red Blood Count 4.21 M/mm3 (4.2-5.4); White Blood Count 15.9 K/mm3 (4.5-10.0)
[2025-05-26 11:20] LABS: Alanine Aminotransferase 109 U/L (6-35); Albumin Level 4.2 g/dL (3.5-5.1); Alkaline Phosphatase 139 U/L (38-126); Anion Gap 7 mmol/L (4-12); Aspartate Amino Transferase 89 U/L (14-36); Bilirubin,Total 0.4 mg/dL (0.2-1.3); Blood Urea Nitrogen 18 mg/dL (7-17); Calcium 10.2 mg/dL (8.4-10.2); Carbon Dioxide 32 mmol/L (22-30); Chloride 103 mmol/L (98-107); Estimated Glomerular Filt Rate 30; Glucose 113 mg/dL (65-110); Potassium 3.9 mmol/L (3.4-5.0); Sodium 142 mmol/L (137-145); Total Protein 7.2 g/dL (6.3-8.2)
[2025-05-26 11:56] LABS: Thyroid Stimulating Hormone 1.720 uIU/mL (0.465-4.680)
--- OUTSIDE RECORDS SUMMARY | 2025-05-26 12:58 | XMS_ITS | Clinical Summary ---
Author Organization [facility] Address [address] [place] [address] Care Team Providers Care Quality Manager Name Role Phone Tio Shea MD Primary Care Provider [phone] Allergies No known active allergies Medications omeprazole (PriLOSEC) 20 mg capsule Take 1 capsule (20 mg total) by mouth daily 023 Active amLODIPine (NORVASC) 10 mg tablet Take 1 tablet (10 mg total) by mouth every morning 023 Active metoprolol XL (TOPROL-XL) 50 mg extended release tabletIndicatio ns:Paroxysmal atrial fibrillation (HCC) Take 1 tablet (50 mg total) by mouth daily 90 tablet 3 023 Active amiodarone (PACERONE) 200 mg tabletIndicatio ns:Paroxysmal atrial fibrillation (HCC) Take 1 tablet (200 mg total) by mouth daily 30 tablet 023 Active allopurinoL (ZYLOPRIM) 100 mg tablet Take 1 tablet (100 mg total) by mouth daily 023 Active cholecalciferol (Vitamin D3) 2000 unit tablet Active magnesium gluconate 200 mg tabletIndicatio ns:hypomagnesem ia 1 tablet (200 mg total) Active Mounjaro 2.5 mg/0.5 mL pen injector INJECT 2.5 MG (0.5 ML) SUBCUTANEOUSLY WEEKLY FOR 4 WEEKS 024 Active metFORMIN (GLUCOPHAGE) 500 mg tablet Take 1 tablet (500 mg total) by mouth 2 (two) times a day 024 Active latanoprost (XALATAN) 0.005 % ophthalmic solution INSTILL 1 DROP INTO BOTH EYES EVERY NIGHT AT BEDTIME Active rosuvastatin (CRESTOR) 40 mg tablet Take 1 tablet (40 mg total) by mouth daily 90 tablet 3 024 2024 Active imipramine (TOFRANIL) 10 mg tablet Take 1 tablet (10 mg total) by mouth nightly Will gradually taper up Active potassium chloride ER 20 mEq CR tablet Take 1 tablet (20 mEq total) by mouth 2 (two) times a day Active gabapentin (NEURONTIN) 600 mg tablet Take 1 tablet (600 mg total) by mouth 3 (three) times a day Active furosemide (LASIX) 20 mg tablet Take 1 tablet (20 mg total) by mouth daily 90 tablet 3 025 Active Eliquis 5 mg tablet TAKE 1 TABLET BY MOUTH EVERY 12 HOURS 180 tablet 2 025 Active Eliquis 5 mg tablet Take 1 tablet (5 mg total) by mouth every 12 (twelve) hours 180 tablet 2 025 2024 Discontinued Active Problems Problem Noted Date Diagnosed Date At risk for amiodarone toxicity with fdc u se 01/29/2023 Chronic anticoagulation 01/29/2023 Hypertension [...] alkalosis 12/11/2022 12/12/19 Urinary tract infection 12/11/2022 05/0 04/2023 Encounters Date Type Department Care Team Description 05/26/2025 9:30 AM CDT Office Visit [facility] Medical [facility] Cardiology [address] [facility] [address] [place] [phone] Merrill Rubalcava MD PAF (paroxysmal atrial fibrillation) (Primary Dx); On amiodarone therapy; Chronic anticoagulation; Hypertension associated with diabetes (HCC); Hearing loss, unspecified hearing loss type, unspecified laterality; History of fall 03/29/2025 Telephone [facility] [address] [place] [address] [address] [place] [phone] Merrill Rubalcava MD Med Refill 03/22/2025 2:30 PM CDT Office Visit [facility] [address] [place] [address] [place] [phone] Alysa Puckett NP Hospital discharge follow-up (Primary Dx); Acute diastolic heart failure (HCC); Anemia, unspecified type; Lipid screening 02/26/2025 Orders Only [facility] [address] [place] [address] [place] [phone] Kamar Handy MD 02/24/2025 Orders Only [facility] Health Information Management [address] [place] [address] Scanning, Provider from Last 3 Months Medical [...] on file 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 Gender Identity Not on file Sexual Orientation Not on file Obstetrics History Last Filed Vital Signs Vital Sign Reading Time Taken Comments Blood Pressure 120/64 05/26/2025 9:06 AM CDT Pulse 57 05/26/2025 9:06 AM CDT Temperature 36.8 C (98.3 F) 12/11/2022 4:09 AM CDT Respiratory Rate 18 12/11/2022 11:30 AM CDT Oxygen Saturation 97% 05/26/2025 9:06 AM CDT Inhaled Oxygen Concentration - - Weight 66.2 kg (146 lb) 05/26/2025 9:06 AM CDT Height 152.4 cm (5') 05/26/2025 9:06 AM CDT Body Mass Index 28.51 05/26/2025 9:06 AM CDT Plan of Treatment Health Maintenance Due Date Last Done Comments Albumin Creatinine Ratio, Urine 1953 Breast Cancer Screening-Mammogram 1953 Colon Cancer Screening-Colonoscopy 1953 Depression Screening 1953 Hepatitis C Screening 1953 Osteoporosis Screening-Bone Density Scan 1953 Dilated Eye Exam 1953 Foot Exam 1953 Hepatitis B Screening 1971 Zoster Vaccine (1 of 2) 2003 Pneumococcal vaccine 65+ (3 of 3 - PCV20 or PCV21) 11/05/2017 11/05/2012, 08/20/2006 Well Visit 65+ 2018 Hemoglobin A1C 06/06/2023 12/04/2022, 12/04/2022 Fall Risk Assessment 12/12/2023 12/11/2022 eGFR 01/23/2025 01/24/2024, 01/04, 12/11/2022, Additional history exists Covid-19 Vaccine (3 - 2024-2 6 season) 2025 01/18/2021, 12/19/2020 Influenza Vaccine (#1) 2025 04/29/2013, 2012 Lipid Panel 03/22/2026 03/22/2025, 02/0 12/2023, 07/19/2023, Additional history exists DTaP/Tdap/Td Vaccine (4 - Td or Tdap) 04/10/2035 04/10/2025, 08/21/2018, 08/28/2012, Additional history exists Procedures Procedure Name Priority Date/Time Associated Diagnosis Comments ELECTROCARDIOGRAM REPORT Routine 025 9:15 AM CDT PAF (paroxysmal atrial fibrillation) Hypertension associated with diabetes (HCC) POCT LIPID PANEL Routine 03/22/2025 2:34 PM CDT Lipid screening SCAN - LABS 02/26/2025 CARDIOLOGY DOCUMENT SCAN Routine 025 5:34 PM CDT CARDIOLOGY DOCUMENT SCAN 02/24/2025 SCAN - RADIOLOGY/IMAGING 02/24/2025 COMPREHENSIVE METABOLIC PANEL Routine 01/24/2024 1:29 PM CDT Paroxysmal atrial flutter (HCC) Chronic anticoagulation At risk for amiodarone toxicity with fdc use HEMOGLOBIN A1C Routine 12/04/2022 6:04 AM CDT from Last 3 Months or Most Recently Relevant to Health Maintenance Results * Electrocardiogram Report (05/26/2025 9:15 AM CDT) us Merrill Rubalcava MD ECG ORDERABLES Final Result * POCT lipid panel (03/22/2025 2:34 PM [...] panel (01/24/2024 1:29 PM CDT) Pathologist [facility] Glucose 102(H) 70 - 99 mg/dL [facility] [...] - 01/25/2024 7:11 AM CDT Performed at: [address] [place] [id number] Sheet Metal Duct Installer: Dominic Alicea PhD, Phone: [phone] us [facility] Katie Smith MD LAB BLOOD ORDERABLES Fi nal Result [facility] - 01 * (ABNORMAL) Hemoglobin A1c (12/04/2022 6:04 AM CDT) Hgb A1C 7.3(H) 4.0 - 5.6 % [facility] Estimated Average Glucose 163 mg/dL [facility] Comment: The ADA recommends [...] ORDERABLES Final Re sult Performing Organization Address City/[facility]/ZIP Co de Phone Number [facility] Department [place] [address] from Last 3 Months or Most Recently Relevant to Health Maintenance Insurance MEDICARE COMMERCIAL GENERIC MEDICARE COMMERCIAL GENERIC Advance Directives For more information, please contact: [phone] * Full Code (Latest Code Status on File) Date Activated Date Inactivated Comments 12/04/2022 12:05 AM 12/11/2022 8:28 PM Care Teams Quality Manager Relationship Specialty Start Date End Date Tio Shea MD PCP - General Family Medicine 05/01/21
--- OUTSIDE RECORDS SUMMARY | 2025-05-26 12:58 | XMS_ITS | Encounter Summary ---
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
== END 2025-05-26 10:30 | disposition home or self-care (01) ==
PROVIDERS: PCP Family Medicine; Visit Provider Internal Medicine Cardiovascular Disease
DX: I48.0 Paroxysmal atrial fibrillation (principal); Z79.899 Other long term (current) drug therapy; J98.11 Atelectasis
CPT/HCPCS: 36415; 71046; 80053; 84443; 85025